=== PATIENT | female | born 1970 | race Caucasian/White ===

== ENCOUNTER 2016-04-04 22:54 | Emergency (ER) | payer OTHER ==
[~2016-04-04] VITALS: Ht 160 cm; Wt 86.2 kg
[~2016-04-04 22:54] MED LIST: AC500T; BENZ-13 PO; CEPH500C PO; CIPR-225 PO; CODE118S2 PO; CYCL10TA9 PO; DIAZ-345 PO; DIPH50CA; DOXY100C42 PO; FAMO-119 PO; FAMO20TA5 PO; FLUC150T PO; GNT.3OO351 OD; INSU100I10 SC; KETO75CA PO; LOSA25TA21 PO; LOVA40TA2 PO; METF1000 PO; MONT10TA24 PO; NAPR-243 PO; NITR-65 PO; PANT40TA2 PO; PHEN-639 PO; PHEN100T17 PO; POLY119P5 PO; RNT150T; SUCR1TAB36 PO; SULF-222 PO; TRAM-21 PO; TRAM50TA2 PO; flexeril PO
[2016-04-04] MEDS ORDERED: CETI10CA PO (23:40)
[2016-04-04] MEDS ORDERED: GUAI100G2 PO (23:40)
[2016-04-04] MEDS ORDERED: LIDOCAINE 2% VISCOUS 15 ML UDC PO ONE (23:45)
[2016-04-04] MEDS ORDERED: ANTACID SUSP 30 ML UDC (MYLANTA) PO ONE (23:45)
[2016-04-05] MEDS ORDERED: HYOSCYAMINE 0.125 MG (LEVSIN) TAB SL ONE (01:00)
[2016-04-05] MEDS ORDERED: NS IV 500 ML 500 ML IV ONE (01:00)
[2016-04-05] MEDS ORDERED: fentaNYL INJECTION 100 MCG/2 ML AMP IVP STA (01:00)
[2016-04-05 01:21] LABS: BASOPHILS % (AUTO) 1 % (0-10); EOSINOPHILS # (AUTO) 0.1 10^3/uL (0.0-0.3); EOSINOPHILS % (AUTO) 1 % (0-10); LYMPHOCYTES # (AUTO) 2.7 X 10^3 (1.0-4.0); LYMPHOCYTES % (AUTO) 38 % (12-44); MEAN CORPUSCULAR HEMOGLOBIN 27 PG (25-34); MEAN CORPUSCULAR HGB CONC 32 G/DL (32-36); MEAN CORPUSCULAR VOLUME 83 FL (80-99); MEAN PLATELET VOLUME 9.3 FL (7.4-10.4); MONOCYTES # (AUTO) 0.6 X 10^3 (0.0-1.0); MONOCYTES % (AUTO) 8 % (0-12); NEUTROPHILS # (AUTO) 3.8 X 10^3 (1.8-7.8); NEUTROPHILS % (AUTO) 53 % (42-75); PLATELET COUNT 432 10^3/uL (130-400); RED BLOOD COUNT 4.01 10^6/uL (4.35-5.85); RED CELL DISTRIBUTION WIDTH 15.3 % (10.0-14.5); WHITE BLOOD COUNT 7.1 10^3/uL (4.3-11.0)
--- NOTE | 2016-04-05 01:36 | ED GI ---
General Chief Complaint: Abdominal/GI Problems Stated Complaint: ABD PAIN Nursing Triage Note: Pt c/o upper abd pain. Pt reports hx hernia, heartburn, esophageal stricture and reports pain is worse today than normal. Pt denies n/v/d. Sepsis Screen: No Definite Risk Source of Information: Patient Exam Limitations: No Limitations History of Present Illness Time Seen By Provider: 00:45 Initial Comments Here with report of upper abdominal pain. She does have a history of hiatal hernia and frequent issues related to that. Does have frequent burping. Complains of pain that is epigastric and left-sided. Reports taking her meds as directed. Denies recent fever or chills. Pain has been on off for the last 6 or more months. She is in the process of evaluation for hiatal hernia surgery. Does report bronchitis for one month with some coughing. Timing/Duration: 12 Hours Severity/Quality: Moderate Location: Epigastric Radiation: LUQ Activities at Onset: None Modifying Factors: Worsens With Eating Associated Symptoms: No Back Pain, No Chest Pain, No Fever/Chills, No Nausea/ Vomiting, No Swelling/Mass in Abdomen, No Weakness Allergies and Home Medications Allergies Coded Allergies: Penicillins (Verified Allergy, Mild, 03/10/16) Home Medications Cetirizine HCl 10 Mg Capsule 10 MG PO DAILY (Reported) Guaifenesin 100 Mg Gran.pack Unknown Dose PO (Reported) Insulin Glargine,Hum.rec.anlog 100 Unit/1 Ml Insuln.pen #30 47 UNITS SC DAILY ( Reported) Lovastatin 40 Mg Tablet #30 40 MG PO DAILY (Reported) Metformin HCl 1,000 Mg Tablet #60 1,000 MG PO BID (Reported) Pantoprazole Sodium 40 Mg Tablet. #14 40 MG PO DAILY Prescribed by: LISS BAGLEY on 08/22/15 1095 Sucralfate 1 Gm Tablet #120 1 GM PO QID Prescribed by: SHARLA GREGORY [facility] on 02/21/16 1327 Review of Systems Constitutional: see HPINo chills, No fever EENTM: No Symptoms Reported Respiratory: CoughDenies Shortness of Air Cardiovascular: No Symptoms Reported Gastrointestinal: See HPI Abdominal PainDenies Diarrhea, Denies Vomiting Genitourinary: No Symptoms Reported Musculoskeletal: no symptoms reported Skin: no symptoms reported All Other Systems Reviewed Negative Unless Noted: Yes Past Nhvxfyt-Bacpcc-Cxepcl Hx Patient Social History Alcohol Use: Denies Use Recreational Drug Use: No Smoking Status: Never a Smoker Recent Foreign Travel: No Contact w/Someone Who Travel: No Recent Infectious Disease Expo: No Recent Hopitalizations: No Physical Abuse Screen: No Sexual Abuse: No Immunizations Up To Date Tetanus Booster (TDap): Unknown Date of Influenza Vaccine: Dec 12, 2015 Seasonal Allergies Seasonal Allergies: No Surgeries HX Surgeries: Yes (l knee surgery, endoscopy) Surgeries: Eye Surgery, Orthopedic Respiratory Hx Respiratory Disorders: Yes Respiratory Disorders: Asthma Cardiovascular Hx Cardiac Disorders: Yes Cardiac Disorders: High Cholesterol Neurological Hx Neurological Disorders: No Reproductive System Hx Reproductive Disorders: No Sexually Transmitted Disease: No HIV/AIDS: No Female Reproductive Disorders: Denies Genitourinary Hx Genitourinary Disorders: Yes Genitourinary Disorders: UTI-Chronic Gastrointestinal Hx Gastrointestinal Disorders: Yes (ESOPHAGEAL NARROWING) Gastrointestinal Disorders: Gastroesophageal Reflux, Hiatal Hernia Musculoskeletal Hx Musculoskeletal Disorders: Yes Musculoskeletal Disorders: Arthritis, Scoliosis Endocrine Hx Endocrine Disorders: Yes Endocrine Disorders: Diabetes, Insulin dep HEENT HX ENT Disorders: No Loss of Vision: Denies Hearing Impairment: Denies Cancer Hx Cancer: No Psychosocial Hx Psychiatric Problems: No Integumentary HX Skin/Integumentary Disorder: No Blood Transfusions Hx Blood Disorders: No Reviewed Nursing Assessment Reviewed/Agree w Nursing PMH: Yes Physical Exam Vital Signs VS - Last 72 Hours, by Label 04/04/16 23:36 Temp 96.7 Pulse 72 Resp 18 B/P 148/100 Pulse Ox 99 O2 Delivery Room Air Capillary Refill : Less Than 3 Seconds General Appearance: WD/WN no apparent distress HEENT: PERRL/EOMI pharynx normal Neck: full range of motion supple Respiratory: lungs clear normal breath sounds Cardiovascular: regular rate, rhythm no murmur Gastrointestinal: non tender soft Extremities: normal range of motion non-tender Back: normal inspection no CVA tenderness no vertebral tenderness Neurologic/Psychiatric: alert oriented x 3 Skin: normal color warm/dry Progress/Results/Core Measures Results/Orders Lab Results Laboratory Tests Test 04/05/16 01:10 Range/Units Alanine Aminotransferase (ALT/SGPT) 24 0-55 U/L Albumin 3.9 3.2-4.5 G/DL Alkaline Phosphatase 55 40-136 U/L Amylase Level 33 25-125 U/L Anion Gap 10 5-14 MMOL/L Aspartate Amino Transf (AST/SGOT) 22 5-34 U/L BUN/Creatinine Ratio 12 Basophils # (Auto) 0.0 0.0-0.1 10^3/uL Basophils (%) (Auto) 1 0-10 % Blood Urea Nitrogen 9 7-18 MG/DL Calcium Level 8.7 8.5-10.1 MG/DL Carbon Dioxide Level 22 21-32 MMOL/L Chloride Level 108 H 98-107 MMOL/L Creatinine 0.73 0.60-1.30 MG/DL Eosinophils # (Auto) 0.1 0.0-0.3 10^3/uL Eosinophils (%) (Auto) 1 0-10 % Estimat Glomerular Filtration Rate > 60 Glucose Level 147 H 70-105 MG/DL Hematocrit 33 L 35-52 % Hemoglobin 10.7 L 11.5-16.0 G/DL Lipase 32 8-78 U/L Lymphocytes # (Auto) 2.7 1.0-4.0 X 10^3 Lymphocytes (%) (Auto) 38 12-44 % Mean Corpuscular Hemoglobin 27 25-34 PG Mean Corpuscular Hemoglobin Concent 32 32-36 G/DL Mean Corpuscular Volume 83 80-99 FL Mean Platelet Volume 9.3 7.4-10.4 FL Monocytes # (Auto) 0.6 0.0-1.0 X 10^3 Monocytes (%) (Auto) 8 0-12 % Neutrophils # (Auto) 3.8 1.8-7.8 X 10^3 Neutrophils (%) (Auto) 53 42-75 % Platelet Count 432 H 130-400 10^3/uL Potassium Level 3.2 L 3.6-5.0 MMOL/L Red Blood Count 4.01 L 4.35-5.85 10^6/uL Red Cell Distribution Width 15.3 H 10.0-14.5 % Sodium Level 140 135-145 MMOL/L Total Bilirubin 0.2 0.1-1.0 MG/DL Total Protein 6.9 6.4-8.2 G/DL White Blood Count 7.1 4.3-11.0 10^3/uL My Orders Orders-WILEY AMBRIZ MD Lidocaine 2% Viscous 15 Ml (Xylocaine Vi (04/04/16 23:45) Antacid Suspension (Mylanta Suspension (04/04/16 23:45) Saline Lock/Iv-Start (04/05/16 01:00) Ns Iv 500 Ml (Sodium Chloride 0.9%) (04/05/16 01:00) Fentanyl Injection (Sublimaze Injection (04/05/16 01:00) Amylase (04/05/16 01:00) Cbc With Automated Diff (04/05/16 01:00) Comprehensive Metabolic Panel (04/05/16 01:00) Lipase (04/05/16 01:00) Chest Pa/Lat (2 View) (04/05/16 01:00) Urine Bedside (04/05/16 01:00) Hyoscyamine Sl Tablet (Levsin Sl Tablet) (04/05/16 01:00) Ketorolac Injection (Toradol Injection) (04/05/16 02:00) Dexamethasone Pf Injection (Decadron Pf (04/05/16 02:00) Medications Given in ED Current Medications Medications Dose Ordered Sig/Hunter Route Start Time Stop Time Status Last Admin Dose Admin Al Hydrox/Mg Hydrox/ Simethicone 30 ml 30 ml ONCE ONCE PO 04/04/16 23:45 04/04/16 23:47 DC 04/05/16 00:00 30 ML Hyoscyamine Sulfate 0.125 mg ONCE ONCE SL 04/05/16 01:00 04/05/16 01:02 DC 04/05/16 01:11 0.125 MG Lidocaine HCl 15 ml ONCE ONCE PO 04/04/16 23:45 04/04/16 23:47 DC 04/05/16 00:00 15 ML Sodium Chloride 500 ml @ 0 mls/hr Q0M ONCE IV 04/05/16 01:00 04/05/16 01:02 DC 04/05/16 01:11 999 MLS/HR Vital Signs/I&O Vital Sign - Last 12Hours 04/04/16 23:36 Temp 96.7 Pulse 72 Resp 18 B/P 148/100 Pulse Ox 99 O2 Delivery Room Air Blood Pressure Mean: 116 Point of Care Testing Urine -Bedside: Negative Progress Note : Progress Note Seen and evaluated. GI cocktail given. This did not help patient's discomfort. IV, labs, normal saline 500 mL bolus, fentanyl 50 g IV and Levsin 0.125 mg by mouth given. Chest x-ray ordered. Monitor patient. 0155: Pain somewhat improved. I did discuss the x-ray findings with the patient. She has a moderate amount of bowel gas. She does have a habit of injecting air to try to induce burping. She would like to avoid further scanning currently if possible. We will try Toradol 30 mg IV and also will give Decadron 10 mg IV due to her bronchitis that she's had for a month. Patient was informed that this may increase her blood sugars. Monitor patient. 0230: Improved overall. Discharged home with return precautions. Patient verbalize understanding instructions and agreement with plan. Diagnostic Imaging Diagonstic Imaging: Xray Plain Films/CT/US/NM/MRI: chest Comments No acute findings in the lungs. Moderate amount of bowel gas. Departure Impression Impression: Primary Impression: Epigastric abdominal pain Additional Impression: Bronchitis Disposition: HOME, SELF-CARE Condition: Improved Departure-Patient Inst. Decision time for Depature: 02:30 Referrals: [facility] (PCP/Family) Primary Care Physician ADRIENNE BRITTON DO Patient Instructions: Acute Abdomen (Belly Pain), Adult (DC), Acute Bronchitis in Adults Add. Discharge Instructions: All discharge instructions reviewed with patient and/or family. Voiced understanding. Continue home medications as directed. You may take Tylenol 1000 mg every 8 hours as needed for pain. You may take ibuprofen 800 mg every 8 hours as needed for pain. Drink plenty of fluids. Try to avoid injecting air to induce burping. You may try Gas-X or similar [id number] agents to decrease bowel gas. Follow-up with your surgeon is for recheck. Follow-up with your primary care doctor in a few days for recheck. Return for worse pain, fever, vomiting, weakness, breathing problems or other concerns as needed. Scripts Hyoscyamine Sulfate (Levsin)0.125 Mg Tablet0.125 Mg PO Q4H PRN CRAMPS #20 TAB Ref 0 Prov:WILEY AMBRIZ MD 04/05/16 Copy Copies To 1: RIAZ REAL DO Copies To 2: ADRIENNE BRITTON DO WILEY AMBRIZ MD Apr 05, 2016 01:36
[2016-04-05 01:41] LABS: ALANINE AMINOTRANSFERASE 24 U/L (0-55); ALBUMIN 3.9 G/DL (3.2-4.5); AMYLASE 33 U/L (25-125); ANION GAP 10 MMOL/L (5-14); ASPARTATE AMINO TRANSFERASE 22 U/L (5-34); BILIRUBIN,TOTAL 0.2 MG/DL (0.1-1.0); BLOOD UREA NITROGEN 9 MG/DL (7-18); BUN/CREATININE RATIO 12; CALCIUM 8.7 MG/DL (8.5-10.1); CARBON DIOXIDE 22 MMOL/L (21-32); CHLORIDE 108 MMOL/L (98-107); CREATININE SERUM 0.73 MG/DL (0.60-1.30); GFR ESTIMATED > 60; GLUCOSE 147 MG/DL (70-105); LIPASE 32 U/L (8-78); POTASSIUM 3.2 MMOL/L (3.6-5.0); SODIUM 140 MMOL/L (135-145); TOTAL PROTEIN 6.9 G/DL (6.4-8.2)
[2016-04-05] MEDS ORDERED: DEXAMETHASONE PF 10 MG/ML (DECADRON) VIAL IV STA (02:00)
[2016-04-05] MEDS ORDERED: KETOROLAC 30 MG/ML VIAL IVP STA (02:00)
[2016-04-05] MEDS ORDERED: HYOS0.1281 PO (02:34)
[2016-04-05 02:39] VITALS: BP 148/82
--- NOTE | 2016-04-05 06:51 | Diagnostic Imaging Report ---
INDICATION: Chronic upper abdominal pain PA and lateral views of the chest are obtained with comparison made to the examination of 03/10/2016. Overall heart size is within normal limits although pulmonary vascularity is prominent. There is no consolidation, pneumothorax or significant pleural fluid. IMPRESSION: Pulmonary vascularity at the upper limits of normal without overt edema or other acute abnormality seen. Dictated by: Dictated on workstation # [id number]
== END 2016-04-05 02:39 | disposition home or self-care (01) ==
LOC: ER 22:54 → EDUNIT# 22:54 → ER 04-05 02:39
DX: R10.13 Epigastric pain (principal); J40 Bronchitis, not specified as acute or chronic; K44.9 Diaphragmatic hernia without obstruction or gangrene; E11.9 Type 2 diabetes mellitus without complications; Z79.84 Long term (current) use of oral hypoglycemic drugs; Z79.4 Long term (current) use of insulin; Z79.899 Other long term (current) drug therapy
CPT/HCPCS: 36415; 71020; 80053; 82150; 83690; 84703; 85025; 96361; 96374; 96375

== ENCOUNTER 2016-04-16 21:09 | Emergency (ER) | payer OTHER ==
[~2016-04-16] VITALS: Ht 160 cm; Wt 88.7 kg
[~2016-04-16 21:09] MED LIST changes: +CETI10CA PO; +GUAI100G2 PO; +HYOS0.1281 PO
--- NOTE | 2016-04-16 21:20 | ED Cough/URI ---
General Stated Complaint: BRONCHITIS/RIB PAIN/SINUS INFECTION Source: patient Exam Limitations: no limitations History of Present Illness Time seen by provider: 21:19 Initial Comments To ER with a cough that has been persistent since before . She has been on doxycycline azithromycin and Ceftin without improvement. It is productive of yellowish sputum that is sometimes blood-tinged. No fevers. Timing/Duration: just prior to arrival Severity/Quality: productive cough, sputum, blood streaked sputum Associated Symptoms: cough, wheezing Allergies and Home Medications Allergies Coded Allergies: Penicillins (Verified Allergy, Mild, 03/10/16) Home Medications Cetirizine HCl 10 Mg Capsule 10 MG PO DAILY (Reported) Guaifenesin 100 Mg Gran.pack Unknown Dose PO (Reported) Hyoscyamine Sulfate 0.125 Mg Tablet #20 0.125 MG PO Q4H PRN PRN CRAMPS Prescribed by: WILEY AMBRIZ on 04/05/16 0234 Insulin Glargine,Hum.rec.anlog 100 Unit/1 Ml Insuln.pen #30 47 UNITS SC DAILY ( Reported) Lovastatin 40 Mg Tablet #30 40 MG PO DAILY (Reported) Metformin HCl 1,000 Mg Tablet #60 1,000 MG PO BID (Reported) Pantoprazole Sodium 40 Mg Tablet.dr #14 40 MG PO DAILY Prescribed by: LISS BAGLEY on 08/22/15 2159 Sucralfate 1 Gm Tablet #120 1 GM PO QID Prescribed by: SHARLA GREGORY [facility] on 02/21/16 1327 Constitutional: see HPI EENTM: see HPI Respiratory: see HPI cough wheezing Cardiovascular: no symptoms reported Genitourinary: no symptoms reported Musculoskeletal: no symptoms reported Skin: no symptoms reported Psychiatric/Neurological: No Symptoms Reported Hematologic/Lymphatic: No Symptoms Reported Immunological/Allergic: no symptoms reported Past Ahqtqgz-Osufxf-Ihdlir Hx Patient Social History Recent Foreign Travel: No Contact w/Someone Who Travel: No Recent Hopitalizations: No Immunizations Up To Date Tetanus Booster (TDap): Unknown Date of Influenza Vaccine: Dec 12, 2015 Seasonal Allergies Seasonal Allergies: No Surgeries HX Surgeries: Yes (l knee surgery, endoscopy) Surgeries: Eye Surgery, Orthopedic Respiratory Hx Respiratory Disorders: Yes Respiratory Disorders: Asthma Cardiovascular Hx Cardiac Disorders: Yes Cardiac Disorders: High Cholesterol Neurological Hx Neurological Disorders: No Reproductive System Hx Reproductive Disorders: No Sexually Transmitted Disease: No HIV/AIDS: No Female Reproductive Disorders: Denies Genitourinary Hx Genitourinary Disorders: Yes Genitourinary Disorders: UTI-Chronic Gastrointestinal Hx Gastrointestinal Disorders: Yes (ESOPHAGEAL NARROWING) Gastrointestinal Disorders: Gastroesophageal Reflux, Hiatal Hernia Musculoskeletal Hx Musculoskeletal Disorders: Yes Musculoskeletal Disorders: Arthritis, Scoliosis Endocrine Hx Endocrine Disorders: Yes Endocrine Disorders: Diabetes, Insulin dep HEENT HX ENT Disorders: No Loss of Vision: Denies Hearing Impairment: Denies Cancer Hx Cancer: No Psychosocial Hx Psychiatric Problems: No Integumentary HX Skin/Integumentary Disorder: No Blood Transfusions Hx Blood Disorders: No Physical Exam Vital Signs Vital Sign - Last 12Hours 04/16/16 04/16/16 21:25 21:33 Temp 100.6 Pulse 112 Resp 18 B/P 173/104 Pulse Ox 98 O2 Delivery Room Air Capillary Refill : General Appearance: WD/WN no apparent distress Eyes: Bilateral Eye EOMI, Bilateral Eye Normal Inspection, Bilateral Eye PERRL HEENT: PERRL/EOMI normal ENT inspection Neck: non-tender full range of motion Respiratory: no respiratory distress no accessory muscle use wheezing Gastrointestinal: normal bowel sounds non tender soft Neurologic/Psychiatric: alert normal mood/affect oriented x 3 Skin: normal color warm/dry Progress/Results/Core Measures Results/Orders Micro Results Microbiology 04/16/16 Influenza Types A,B Antigen (AMITA) - Final, Complete My Orders Orders-LISS BAGLEY APRN Chest Pa/Lat (2 View) (04/16/16 21:10) Influenza A And B Antigens (04/16/16 21:10) Albuterol/Ipra Inhalation Soln (Duoneb I (04/16/16 21:30) Svn Sm Volume Nebulizer Rt-Rfs (04/16/16 21:18) Prednisone Tablet (Deltasone Tablet) (04/16/16 21:30) Promethazine/ Codeine Syrup (Phenergan W (04/16/16 21:30) Medications Given in ED Current Medications Medications Dose Ordered Sig/Hunter Route Start Time Stop Time Status Last Admin Dose Admin Albuterol/ Ipratropium 3 ml ONCE ONCE INH 04/16/16 21:30 04/16/16 21:31 DC 04/16/16 21:30 3 ML Prednisone 40 mg ONCE ONCE PO 04/16/16 21:30 04/16/16 21:31 DC 04/16/16 21:49 40 MG Vital Signs/I&O Vital Sign - Last 12Hours 04/16/16 04/16/16 04/16/16 21:25 21:31 21:33 Temp 100.6 Pulse 112 Resp 18 B/P 173/104 Pulse Ox 98 98 O2 Delivery Room Air Departure Impression Impression: Primary Impression: Reactive airway disease Disposition: HOME, SELF-CARE Condition: Stable Departure-Patient Inst. Decision time for Depature: 22:01 Referrals: [facility] (PCP/Family) Primary Care Physician Patient Instructions: NO INSTRUCTIONS GIVEN Add. Discharge Instructions: 1. You must follow-up with your regular doctor this week, no exceptions. 2. Steroids and inhaler as directed Scripts Albuterol Sulfate (Proair Hfa)8.5 Gm Hfa.aer.ad1-2 Puff IH Q4H PRN WHEEZING #1 INH Prov:LISS BAGLEY APRN 04/16/16 Prednisone 20 Mg Tab40 Mg PO DAILY 5 Days Prov:LISS BAGLEY APRN 04/16/16 LISS BAGLEY APRN Apr 16, 2016 21:20
[2016-04-16] MEDS ORDERED: predniSONE 20 MG TAB PO ONE (21:30)
[2016-04-16] MEDS ORDERED: RT-ALBUTEROL/IPRATROPIUM 3 ML (DUONEB) VIAL INH ONE (21:30)
--- NOTE | 2016-04-16 21:48 | Diagnostic Imaging Report ---
INDICATION: Cough COMPARISON STUDY: Chest from April 05. FINDINGS: Frontal and lateral views of the chest demonstrate the lungs to be clear. The heart, mediastinum, and pulmonary vascularity are normal. IMPRESSION: Negative chest. Dictated by: Dictated on workstation # [id number]
[2016-04-16] MEDS: PROMETHAZINE/ CODEINE SYRUP 5 ML UDC PO ONE ×2 (21:49→21:51)
[2016-04-16] MEDS ORDERED: PRD20T PO (22:03)
[2016-04-16] MEDS ORDERED: RT-ALBUINH IH (22:03)
[2016-04-16 22:07] VITALS: BP 146/107
== END 2016-04-16 22:05 | disposition home or self-care (01) ==
LOC: EDUNIT# 21:09 → ER 21:10
DX: J45.909 Unspecified asthma, uncomplicated (principal); E11.9 Type 2 diabetes mellitus without complications; Z79.84 Long term (current) use of oral hypoglycemic drugs; Z79.899 Other long term (current) drug therapy
CPT/HCPCS: 71020; 87804; 94640; 99282

== ENCOUNTER 2016-04-22 20:13 | Emergency (ER) | payer OTHER ==
[~2016-04-22] VITALS: Ht 160 cm; Wt 86.2 kg
[~2016-04-22 20:13] MED LIST changes: +PRD20T PO; +RT-ALBUINH IH
[2016-04-22] MEDS ORDERED: NS IV 1000 ML 1,000 ML IV ONE ×2 (20:26→22:17)
--- NOTE | 2016-04-22 20:29 | ED GI ---
General Chief Complaint: Abdominal/GI Problems Stated Complaint: N/V Nursing Triage Note: Pt c/o nausea and vomiting and abd pain since 0430 this morning Sepsis Screen: No Definite Risk Source of Information: Patient Exam Limitations: No Limitations History of Present Illness Time Seen By Provider: 20:17 Initial Comments Here with report of nausea and vomiting since about 430 this morning. She had a relatively clear. She went to work and then vomited several more times. She is complaining of upper abdominal pain. This is not a new complaint for her. She does have hiatal hernia. Denies fever or chills. Does report increased urination. Timing/Duration: 12-24 Hours Severity/Quality: Moderate Location: Epigastric Radiation: No Radiation Modifying Factors: Worsens With Eating, Improves With Vomiting Associated Symptoms: No Back Pain, No Chest Pain, No Fever/Chills, FatigueNo Nausea/Vomiting, No Shortness of Air, No Weakness Allergies and Home Medications Allergies Coded Allergies: Penicillins (Verified Allergy, Mild, 03/10/16) Home Medications Albuterol Sulfate 8.5 Gm Hfa.aer.ad #1 1-2 PUFF IH Q4H PRN PRN WHEEZING Prescribed by: LISS BAGLEY on 04/16/162202 Cetirizine HCl 10 Mg Capsule 10 MG PO DAILY (Reported) Guaifenesin 100 Mg Gran.pack Unknown Dose PO (Reported) Hyoscyamine Sulfate 0.125 Mg Tablet #20 0.125 MG PO Q4H PRN PRN CRAMPS Prescribed by: WILEY AMBRIZ on 04/05/16 0234 Insulin Glargine,Hum.rec.anlog 100 Unit/1 Ml Insuln.pen #30 47 UNITS SC DAILY ( Reported) Lovastatin 40 Mg Tablet #30 40 MG PO DAILY (Reported) Metformin HCl 1,000 Mg Tablet #60 1,000 MG PO BID (Reported) Pantoprazole Sodium 40 Mg Tablet.dr #14 40 MG PO DAILY Prescribed by: LISS BAGLEY on 08/22/152158 Prednisone 20 Mg Tab 5Days 40 MG PO DAILY Prescribed by: LISS BAGLEY on 04/16/162202 Sucralfate 1 Gm Tablet #120 1 GM PO QID Prescribed by: SHARLA GREGORY [facility] on 02/21/16 1327 Review of Systems Constitutional: see HPINo chills, No fever EENTM: No Symptoms Reported Respiratory: See HPI CoughDenies Shortness of Air Cardiovascular: No Symptoms Reported Gastrointestinal: See HPI Abdominal Pain Nausea Vomiting Genitourinary: No Symptoms Reported Musculoskeletal: no symptoms reported Skin: no symptoms reported Psychiatric/Neurological: See HPI Endocrine: See HPI Increased Urine All Other Systems Reviewed Negative Unless Noted: Yes Past Ewpwefg-Xzgvzp-Cyjmrx Hx Patient Social History Alcohol Use: Denies Use Recreational Drug Use: No Smoking Status: Never a Smoker Recent Foreign Travel: No Contact w/Someone Who Travel: No Recent Infectious Disease Expo: No Recent Hopitalizations: No Immunizations Up To Date Tetanus Booster (TDap): Unknown Date of Influenza Vaccine: Dec 12, 2015 Seasonal Allergies Seasonal Allergies: No Surgeries HX Surgeries: Yes (l knee surgery, endoscopy, eye) Surgeries: Eye Surgery, Orthopedic Respiratory Hx Respiratory Disorders: Yes Respiratory Disorders: Asthma Cardiovascular Hx Cardiac Disorders: Yes Cardiac Disorders: High Cholesterol Neurological Hx Neurological Disorders: No Reproductive System Hx Reproductive Disorders: No Sexually Transmitted Disease: No HIV/AIDS: No Female Reproductive Disorders: Denies Genitourinary Hx Genitourinary Disorders: Yes Genitourinary Disorders: UTI-Chronic Gastrointestinal Hx Gastrointestinal Disorders: Yes (ESOPHAGEAL NARROWING) Gastrointestinal Disorders: Gastroesophageal Reflux, Hiatal Hernia Musculoskeletal Hx Musculoskeletal Disorders: Yes Musculoskeletal Disorders: Arthritis, Scoliosis Endocrine Hx Endocrine Disorders: Yes Endocrine Disorders: Diabetes, Insulin dep HEENT HX ENT Disorders: No Loss of Vision: Denies Hearing Impairment: Denies Cancer Hx Cancer: No Psychosocial Hx Psychiatric Problems: No Integumentary HX Skin/Integumentary Disorder: No Blood Transfusions Hx Blood Disorders: No Reviewed Nursing Assessment Reviewed/Agree w Nursing PMH: Yes Family Medical History Significant Family History: No Pertinent Family Hx Physical Exam Vital Signs VS - Last 72 Hours, by Label 04/22/16 20:23 Temp 98.3 Pulse 104 Resp 18 B/P 164/102 Pulse Ox 98 O2 Delivery Room Air Capillary Refill : Less Than 3 Seconds General Appearance: WD/WN no apparent distress HEENT: PERRL/EOMI pharynx normal Neck: full range of motion supple Respiratory: lungs clear normal breath sounds Cardiovascular: regular rate, rhythm no murmur Gastrointestinal: non tender soft Extremities: non-tender normal inspection Back: normal inspection no CVA tenderness no vertebral tenderness Neurologic/Psychiatric: alert oriented x 3 Skin: normal color warm/dry Progress/Results/Core Measures Results/Orders Lab Results Laboratory Tests Test 04/22/16 20:39 04/22/16 21:17 04/22/16 22:29 Range/Units Alanine Aminotransferase (ALT/SGPT) 16 0-55 U/L Albumin 3.9 3.2-4.5 G/DL Alkaline Phosphatase 61 40-136 U/L Anion Gap 17 H 5-14 MMOL/L Anisocytosis MODERATE Aspartate Amino Transf (AST/SGOT) 26 5-34 U/L BUN/Creatinine Ratio 12 Band Neutrophils 1 % Basophils # (Auto) 0.0 0.0-0.1 10^3/uL Basophils % (Manual) 0 % Basophils (%) (Auto) 0 0-10 % Blood Urea Nitrogen 17 7-18 MG/DL C-Reactive Protein High Sensitivity 0.50 0.00-0.50 MG/DL Calcium Level 9.3 8.5-10.1 MG/DL Carbon Dioxide Level 12 L 21-32 MMOL/L Chloride Level 102 98-107 MMOL/L Creatinine 1.38 H 0.60-1.30 MG/DL Elliptocytes SLIGHT Eosinophils # (Auto) 0.0 0.0-0.3 10^3/uL Eosinophils % (Manual) 0 % Eosinophils (%) (Auto) 0 0-10 % Estimat Glomerular Filtration Rate 41 Glucose Level 434 *H 70-105 MG/DL Hematocrit 33 L 35-52 % Hemoglobin 10.9 L 11.5-16.0 G/DL Hypersegmented Neutrophils SLIGHT Lymphocytes # (Auto) 1.4 1.0-4.0 X 10^3 Lymphocytes % (Manual) 15 % Lymphocytes (%) (Auto) 11 L 12-44 % Magnesium Level 2.0 1.8-2.4 MG/DL Mean Corpuscular Hemoglobin 26 25-34 PG Mean Corpuscular Hemoglobin Concent 33 32-36 G/DL Mean Corpuscular Volume 79 L 80-99 FL Mean Platelet Volume 10.1 7.4-10.4 FL Monocytes # (Auto) 0.4 0.0-1.0 X 10^3 Monocytes % (Manual) 1 % Monocytes (%) (Auto) 3 0-12 % Neutrophils # (Auto) 11.4 H 1.8-7.8 X 10^3 Neutrophils % (Manual) 83 % Neutrophils (%) (Auto) 86 H 42-75 % Platelet Count 484 H 130-400 10^3/uL Poikilocytosis SLIGHT Potassium Level 5.0 3.6-5.0 MMOL/L Red Blood Count 4.17 L 4.35-5.85 10^6/uL Red Cell Distribution Width 15.3 H 10.0-14.5 % [place] SLIGHT Sodium Level 131 L 135-145 MMOL/L Total Bilirubin 0.3 0.1-1.0 MG/DL Total Protein 7.6 6.4-8.2 G/DL Toxic Granulation 1+ White Blood Count 13.2 H 4.3-11.0 10^3/uL Urine Bacteria NEGATIVE /HPF Urine Bilirubin NEGATIVE NEGATIVE Urine Casts NONE /LPF Urine Clarity CLEAR Urine Color YELLOW Urine Crystals NONE /LPF Urine Culture Indicated NO Urine Glucose (UA) 4+ H NEGATIVE Urine Ketones 2+ H NEGATIVE Urine Leukocyte Esterase 1+ H NEGATIVE Urine Mucus NEGATIVE /LPF Urine Nitrite NEGATIVE NEGATIVE Urine Protein NEGATIVE NEGATIVE Urine RBC NONE /HPF Urine RBC (Auto) NEGATIVE NEGATIVE Urine Renal Epithelial Cells NONE /HPF Urine Specific [place] 1.015 L 1.016-1.022 Urine Squamous Epithelial Cells 0-2 /HPF Urine Urobilinogen NORMAL NORMAL MG/DL Urine WBC 0-2 /HPF Urine Yeast FEW H /HPF Urine pH 5 5-9 Glucometer 294 H 70-110 MG/DL My Orders Orders-WILEY AMBRIZ MD Cbc With Automated Diff (04/22/16 20:26) Comprehensive Metabolic Panel (04/22/16 20:26) Hs C Reactive Protein (04/22/16 20:26) Magnesium (04/22/16 20:26) Ua Culture If Indicated (04/22/16 20:26) Saline Lock/Iv-Start (04/22/16 20:26) Ns Iv 1000 Ml (Sodium Chloride 0.9%) (04/22/16 20:26) Ondansetron Injection (Zofran Injectio (04/22/16 20:30) Hyoscyamine Sl Tablet (Levsin Sl Tablet) (04/22/16 20:30) Manual Differential (04/22/16 20:39) Insulin (Regular) Human (Humulin R (Per (04/22/16 22:30) Ns Iv 1000 Ml (Sodium Chloride 0.9%) (04/22/16 22:17) Ketorolac Injection (Toradol Injection) (04/22/16 22:50) Medications Given in ED Current Medications Medications Dose Ordered Sig/Hunter Route Start Time Stop Time Status Last Admin Dose Admin Hyoscyamine Sulfate 0.125 mg 0.125 mg ONCE ONCE SL 04/22/16 20:30 04/22/16 20:31 DC 04/22/16 20:40 0.125 MG Ondansetron HCl 4 mg ONCE ONCE IVP 04/22/16 20:30 04/22/16 20:31 DC 04/22/16 20:40 4 MG Sodium Chloride 1,000 ml @ 0 mls/hr Q0M ONCE IV 04/22/16 20:26 04/22/16 20:29 DC 04/22/16 20:40 999 MLS/HR Sodium Chloride 1,000 ml @ 0 mls/hr Q0M ONCE IV 04/22/16 22:17 04/22/16 22:18 DC 04/22/16 22:27 999 MLS/HR Vital Signs/I&O Vital Sign - Last 12Hours 04/22/16 20:23 Temp 98.3 Pulse 104 Resp 18 B/P 164/102 Pulse Ox 98 O2 Delivery Room Air Blood Pressure Mean: 122 Progress Note : Progress Note Seen and evaluated. IV, labs, UA, normal saline 1 L bolus, Zofran 4 mg IV and Levsin 0.125 mg by mouth. Monitor patient. 2215: Patient noted to have elevated blood sugar. We will repeat normal saline 1 L bolus and give insulin 10 units IV. Monitor patient. Insulin was held as patient reported taking her Lantus and metformin prior to coming to the ER. Repeat her stick blood sugar shows it to be in the mid 200 range. She is currently on steroids for bronchitis and this would account for her elevated blood sugar and slightly elevated white count. Toradol 30 mg IV ordered. Monitor patient. 2310: Discharged home with return precautions. Patient verbalize understanding instructions and agreement with plan. Departure Impression Impression: Primary Impression: Epigastric abdominal pain Additional Impression: Hyperglycemia Disposition: 01 HOME, SELF-CARE Condition: Improved Departure-Patient Inst. Decision time for Depature: 23:14 Referrals: [facility] (PCP/Family) Primary Care Physician ADRIENNE BRITTON DO Patient Instructions: Acute Abdomen (Belly Pain), Adult (DC), Hyperglycemia, Adult (DC) Add. Discharge Instructions: All discharge instructions reviewed with patient and/or family. Voiced understanding. Carefully watch your blood sugars. Clear liquid diet for 24 hours and then advance as tolerated. Follow-up with your doctor tomorrow for recheck and further evaluation. Return for worse pain, fever, vomiting, weakness, breathing problems or other concerns as needed. Discuss with your doctor about further evaluation including surgical referral as needed. Scripts Sucralfate (Carafate)1 Gm Tablet1 Gm PO QID #120 TAB Ref 0 Prov:WILEY AMBRIZ MD 04/23/16 WILEY AMBRIZ MD Apr 22, 2016 20:29
[2016-04-22] MEDS ORDERED: HYOSCYAMINE 0.125 MG (LEVSIN) TAB SL ONE (20:30)
[2016-04-22] MEDS ORDERED: ONDANSETRON 4 MG/2 ML (SDV) Z0FRAN IVP ONE (20:30)
[2016-04-22 20:48] LABS: BASOPHILS % (AUTO) 0 % (0-10); EOSINOPHILS % (AUTO) 0 % (0-10); LYMPHOCYTES # (AUTO) 1.4 X 10^3 (1.0-4.0); LYMPHOCYTES % (AUTO) 11 % (12-44); MEAN CORPUSCULAR HEMOGLOBIN 26 PG (25-34); MEAN CORPUSCULAR HGB CONC 33 G/DL (32-36); MEAN CORPUSCULAR VOLUME 79 FL (80-99); MEAN PLATELET VOLUME 10.1 FL (7.4-10.4); MONOCYTES # (AUTO) 0.4 X 10^3 (0.0-1.0); MONOCYTES % (AUTO) 3 % (0-12); NEUTROPHILS # (AUTO) 11.4 X 10^3 (1.8-7.8); NEUTROPHILS % (AUTO) 86 % (42-75); PLATELET COUNT 484 10^3/uL (130-400); RED BLOOD COUNT 4.17 10^6/uL (4.35-5.85); RED CELL DISTRIBUTION WIDTH 15.3 % (10.0-14.5); WHITE BLOOD COUNT 13.2 10^3/uL (4.3-11.0)
[2016-04-22 21:07] LABS: ALBUMIN 3.9 G/DL (3.2-4.5); ANISOCYTOSIS MODERATE; BAND NEUTROPHILS 1 %; BASOPHILS % (MANUAL) 0 %; BILIRUBIN,TOTAL 0.3 MG/DL (0.1-1.0); CALCIUM 9.3 MG/DL (8.5-10.1); CREATININE SERUM 1.38 MG/DL (0.60-1.30); EOSINOPHILS % (MANUAL) 0 %; LYMPHOCYTES % (MANUAL) 15 %; NEUTROPHILS % (MANUAL) 83 %; POIKILOCYTOSIS SLIGHT; TOTAL PROTEIN 7.6 G/DL (6.4-8.2); hs C REACTIVE PROTEIN 0.5 MG/DL (0.00-0.50)
[2016-04-22 21:08] LABS: ROULEAUX SLIGHT
[2016-04-22 21:25] LABS: BILIRUBIN,URINE NEGATIVE (NEGATIVE); KETONES,URINE 2+ (NEGATIVE); LEUKOCYTE ESTERASE ,URINE 1+ (NEGATIVE); NITRITE,URINE NEGATIVE (NEGATIVE); PH,URINE 5 (5-9); PROTEIN,URINE NEGATIVE (NEGATIVE); UROBILINOGEN,URINE NORMAL (NORMAL)
[2016-04-22 21:37] LABS: SQUAMOUS EPITHELIAL CELL,UR 0-2 /HPF; WBC,URINE 0-2 /HPF; YEAST,URINE FEW /HPF
[2016-04-22] MEDS ORDERED: inSUlin (REGULAR) HUMAN 1 UNIT/0.01 ML (CHARGE PER UNIT) IV ONE (22:30)
[2016-04-22] MEDS ORDERED: KETOROLAC 30 MG/ML VIAL IVP STA (22:50)
[2016-04-23] MEDS ORDERED: SUCR1TAB36 PO (00:04)
[2016-04-23 00:09] VITALS: BP 149/85
== END 2016-04-23 00:09 | disposition home or self-care (01) ==
LOC: ER 20:13 → EDUNIT# 20:13 → ER 04-23 00:09
DX: R10.13 Epigastric pain (principal); E11.65 Type 2 diabetes mellitus with hyperglycemia; K44.9 Diaphragmatic hernia without obstruction or gangrene; Z79.4 Long term (current) use of insulin; Z79.899 Other long term (current) drug therapy; Z79.84 Long term (current) use of oral hypoglycemic drugs
CPT/HCPCS: 36415; 80053; 81000; 82962; 83735; 85007; 85027; 86141; 96361; 96374; 96375

== ENCOUNTER → 2016-05-23 | Outpatient (CLI) | payer OTHER ==
[~2016-05-23] MED LIST changes: +ACET-2267 PO; +FLUT1BLS IH; +GUAI400T71 PO; +HYOS0.1216 SL; +ONDA8TAB12 PO; +PANT40TA3 PO
--- NOTE | 2016-05-23 14:35 | Diagnostic Imaging Report ---
INDICATION: Asthma, cough, dyspnea. TECHNIQUE: Two view chest at 11:01 a.m. CORRELATION STUDY: 04/16/2016. FINDINGS: Overall somewhat limited depth of inspiration is again demonstrated. Given this, heart size, mediastinum, and vasculature are stable. The lungs are clear with no consolidating infiltrate. There is no significant pleural effusion or pneumothorax. Mild degenerative changes of the thoracic spine. IMPRESSION: 1. No radiographic evidence for acute abnormality of the chest. Dictated by: Dictated on workstation # [id number]
== END ==
LOC: RT 10:37
PROVIDERS: ATTEND Nurse Practitioner Family
DX: J45.909 Unspecified asthma, uncomplicated (principal); R05 Cough; R06.00 Dyspnea, unspecified
CPT/HCPCS: 71020; 94060; 94726; 94729

== ENCOUNTER 2016-06-07 20:12 | Observation (INO) | payer OTHER ==
[~2016-06-07] VITALS: Ht 160 cm; Wt 89.0 kg
[~2016-06-07 20:12] MED LIST changes: -ACET-2267 PO; -FLUT1BLS IH; -GUAI400T71 PO; -HYOS0.1216 SL; -ONDA8TAB12 PO; -PANT40TA3 PO
[2016-06-07] MEDS ORDERED: NS IV 1000 ML 1,000 ML IV ONE (21:26)
[2016-06-07 21:30] LABS: BILIRUBIN,URINE NEGATIVE (NEGATIVE); KETONES,URINE NEGATIVE (NEGATIVE); LEUKOCYTE ESTERASE ,URINE 2+ (NEGATIVE); NITRITE,URINE NEGATIVE (NEGATIVE); PH,URINE 6.5 (5-9); PROTEIN,URINE NEGATIVE (NEGATIVE); UROBILINOGEN,URINE NORMAL (NORMAL)
[2016-06-07] MEDS ORDERED: ONDANSETRON 4 MG/2 ML (SDV) Z0FRAN IVP ONE (21:30)
[2016-06-07] MEDS ORDERED: FAMOTIDINE 20MG/2ML IV (PEPCID) IVP ONE (21:30)
[2016-06-07] MEDS ORDERED: fentaNYL INJECTION 100 MCG/2 ML AMP IVP ONE (21:30)
[2016-06-07 21:54] LABS: BASOPHILS % (AUTO) 0 % (0-10); EOSINOPHILS # (AUTO) 0.2 10^3/uL (0.0-0.3); EOSINOPHILS % (AUTO) 3 % (0-10); LYMPHOCYTES # (AUTO) 2.8 X 10^3 (1.0-4.0); LYMPHOCYTES % (AUTO) 32 % (12-44); MEAN CORPUSCULAR HEMOGLOBIN 25 PG (25-34); MEAN CORPUSCULAR HGB CONC 32 G/DL (32-36); MEAN CORPUSCULAR VOLUME 80 FL (80-99); MEAN PLATELET VOLUME 9.3 FL (7.4-10.4); MONOCYTES # (AUTO) 0.5 X 10^3 (0.0-1.0); MONOCYTES % (AUTO) 6 % (0-12); NEUTROPHILS # (AUTO) 5.2 X 10^3 (1.8-7.8); NEUTROPHILS % (AUTO) 59 % (42-75); PLATELET COUNT 471 10^3/uL (130-400); RED BLOOD COUNT 4.05 10^6/uL (4.35-5.85); RED CELL DISTRIBUTION WIDTH 16.5 % (10.0-14.5); WHITE BLOOD COUNT 8.8 10^3/uL (4.3-11.0)
[2016-06-07 22:16] LABS: ALANINE AMINOTRANSFERASE 19 U/L (0-55); ALBUMIN 3.8 G/DL (3.2-4.5); ANION GAP 9 MMOL/L (5-14); ASPARTATE AMINO TRANSFERASE 17 U/L (5-34); BILIRUBIN,TOTAL 0.3 MG/DL (0.1-1.0); BLOOD UREA NITROGEN 7 MG/DL (7-18); BUN/CREATININE RATIO 9; CALCIUM 9.1 MG/DL (8.5-10.1); CARBON DIOXIDE 24 MMOL/L (21-32); CHLORIDE 107 MMOL/L (98-107); CREATININE SERUM 0.76 MG/DL (0.60-1.30); GFR ESTIMATED > 60; GLUCOSE 210 MG/DL (70-105); LIPASE 27 U/L (8-78); POTASSIUM 3.7 MMOL/L (3.6-5.0); SODIUM 140 MMOL/L (135-145)
--- NOTE | 2016-06-07 22:28 | ED Abdominal Pain ---
General Chief Complaint: Abdominal/GI Problems Stated Complaint: VOMITING, HERNIA, PAIN Nursing Triage Note: PT REPORTS SHE HAS A HIATAL HERNIA AND THAT SHE HAS HAD ABD PAIN, NAUSEA, BELCHING, AND FREQUENT ACIDIC TASTES. SHE ALSO STATES THAT SHE HAS ULCERS. Sepsis Screen: No Definite Risk Source of Information: Patient Exam Limitations: No Limitations History of Present Illness Time Seen By Provider: 21:00 Initial Comments This 46 old woman presents to the emergency room with complaints of epigastric pain radiating to the flanks with associated nausea and vomiting. She denies diarrhea or fever. Symptoms started about 3 days ago. Last bowel movement was normal and was at 10:15. She reports a history of esophageal erosions and stomach ulcers. She feels bloated and complains of excessive belching. She had a negative call bladder ultrasound and hepatobiliary scan in December of last year. She reports having a swallowing issue for which she has had swallow evaluation performed. I do not see the results of that testing in her chart. She had endoscopy performed by Dr. Botello in February demonstrating hiatal hernia and gastritis. She has also seen in Dr. Orozco the past. Her primary care provider is Talha Mi at [facility]. Patient is vomiting in the room during assessment. Allergies and Home Medications Allergies Coded Allergies: Penicillins (Verified Allergy, Mild, 03/10/16) Home Medications Albuterol Sulfate 8.5 Gm Hfa.aer.ad, 1-2 PUFF IH Q4H PRN for WHEEZING, #1 Prescribed by: LISS BAGLEY on 04/16/16 2203 Cetirizine HCl 10 Mg Capsule, 10 MG PO DAILY, (Reported) Guaifenesin 100 Mg Gran.pack, Unknown Dose PO, (Reported) Hyoscyamine Sulfate 0.125 Mg Tablet, 0.125 MG PO Q4H PRN for CRAMPS, #20 Ref 0 Prescribed by: WILEY AMBRIZ on 04/05/16 0234 Insulin Glargine,Hum.rec.anlog 100 Unit/1 Ml Insuln.pen, 47 UNITS SC DAILY, #30 (Reported) Lovastatin 40 Mg Tablet, 40 MG PO DAILY, #30 (Reported) Metformin HCl 1,000 Mg Tablet, 1,000 MG PO BID, #60 (Reported) Pantoprazole Sodium 40 Mg Tablet.dr, 40 MG PO DAILY, #14 Prescribed by: LISS BAGLEY on 6/13/16 2159 Prednisone 20 Mg Tab, 40 MG PO DAILY for 5 Days Prescribed by: LISS BAGLEY on 04/16/16 2203 Sucralfate 1 Gm Tablet, 1 GM PO QID, #120 Prescribed by: SHARLA GORE on 02/21/16 1327 Sucralfate 1 Gm Tablet, 1 GM PO QID, #120 Ref 0 Prescribed by: WILEY AMBRIZ on 04/23/16 0004 Review of Systems Constitutional: no symptoms reported EENTM: No Symptoms Reported Respiratory: No Symptoms Reported Cardiovascular: No Symptoms Reported Gastrointestinal: See HPI Genitourinary: No Symptoms Reported Musculoskeletal: no symptoms reported Skin: no symptoms reported Psychiatric/Neurological: No Symptoms Reported Endocrine: No Symptoms Reported Past Ujgeulx-Mgrxqz-Lxpsum Hx Patient Social History Alcohol Use: Denies Use Recreational Drug Use: No Smoking Status: Never a Smoker 2nd Hand Smoke Exposure: No Recent Foreign Travel: No Contact w/Someone Who Travel: No Recent Infectious Disease Expo: No Recent Hopitalizations: No Immunizations Up To Date Tetanus Booster (TDap): Unknown Date of Influenza Vaccine: Dec 12, 2015 Seasonal Allergies Seasonal Allergies: No Surgeries HX Surgeries: Yes (l knee surgery, endoscopy, eye) Surgeries: Abdominal (endoscopy), Eye Surgery, Orthopedic Respiratory Hx Respiratory Disorders: Yes Respiratory Disorders: Asthma Cardiovascular Hx Cardiac Disorders: Yes Cardiac Disorders: High Cholesterol Neurological Hx Neurological Disorders: No Reproductive System Hx Reproductive Disorders: No Sexually Transmitted Disease: No HIV/AIDS: No Female Reproductive Disorders: Denies Genitourinary Hx Genitourinary Disorders: Yes Genitourinary Disorders: UTI-Chronic Gastrointestinal Hx Gastrointestinal Disorders: Yes (ESOPHAGEAL NARROWING) Gastrointestinal Disorders: Gastroesophageal Reflux, Hiatal Hernia, Ulcer Musculoskeletal Hx Musculoskeletal Disorders: Yes Musculoskeletal Disorders: Arthritis, Scoliosis Endocrine Hx Endocrine Disorders: Yes Endocrine Disorders: Diabetes, Insulin dep HEENT HX ENT Disorders: No Loss of Vision: Denies Hearing Impairment: Denies Cancer Hx Cancer: No Psychosocial Hx Psychiatric Problems: No Integumentary HX Skin/Integumentary Disorder: No Blood Transfusions Hx Blood Disorders: No Family Medical History Significant Family History: No Pertinent Family Hx Physical Exam Vital Signs VS - Last 72 Hours, by Label 06/07/16 20:20 Temp 98.2 Pulse 90 Resp 18 B/P (MAP) 158/99 Pulse Ox 98 O2 Delivery Room Air Capillary Refill : Less Than 3 Seconds General Appearance: WD/WN, moderate distress HEENT: PERRL/EOMI, normal ENT inspection, pharynx normal Neck: normal inspection Respiratory: lungs clear, normal breath sounds, no respiratory distress, no accessory muscle use Cardiovascular: regular rate, rhythm, no edema, no murmur Gastrointestinal: normal bowel sounds, soft, distended, tenderness (focused around the epigastrium. No focal tenderness over the right upper quadrant) Extremities: normal inspection, no pedal edema Neurologic/Psychiatric: feather shaper II-XII nml as tested, no motor/sensory deficits, alert, normal mood/affect, oriented x 3 Skin: normal color, warm/dry Progress/Results/Core Measures Results/Orders Lab Results Laboratory Tests Test 06/07/16 21:22 06/07/16 21:47 Range/Units Urine Color YELLOW Urine Clarity SLIGHTLY CLOUDY Urine pH 6.5 5-9 Urine Specific [place] 1.010 L 1.016-1.022 Urine Protein NEGATIVE NEGATIVE Urine Glucose (UA) 4+ H NEGATIVE Urine Ketones NEGATIVE NEGATIVE Urine Nitrite NEGATIVE NEGATIVE Urine Bilirubin NEGATIVE NEGATIVE Urine Urobilinogen NORMAL NORMAL MG/DL Urine Leukocyte Esterase 2+ H NEGATIVE Urine RBC (Auto) NEGATIVE NEGATIVE Urine RBC RARE /HPF Urine WBC 2-5 /HPF Urine Squamous Epithelial Cells 5-10 /HPF Urine Crystals NONE /LPF Urine Bacteria TRACE /HPF Urine Casts NONE /LPF Urine Mucus NEGATIVE /LPF Urine Culture Indicated NO White Blood Count 8.8 4.3-11.0 10^3/uL Red Blood Count 4.05 L 4.35-5.85 10^6/uL Hemoglobin 10.2 L 11.5-16.0 G/DL Hematocrit 32 L 35-52 % Mean Corpuscular Volume 80 80-99 FL Mean Corpuscular Hemoglobin 25 25-34 PG Mean Corpuscular Hemoglobin Concent 32 32-36 G/DL Red Cell Distribution Width 16.5 H 10.0-14.5 % Platelet Count 471 H 130-400 10^3/uL Mean Platelet Volume 9.3 7.4-10.4 FL Neutrophils (%) (Auto) 59 42-75 % Lymphocytes (%) (Auto) 32 12-44 % Monocytes (%) (Auto) 6 0-12 % Eosinophils (%) (Auto) 3 0-10 % Basophils (%) (Auto) 0 0-10 % Neutrophils # (Auto) 5.2 1.8-7.8 X 10^3 Lymphocytes # (Auto) 2.8 1.0-4.0 X 10^3 Monocytes # (Auto) 0.5 0.0-1.0 X 10^3 Eosinophils # (Auto) 0.2 0.0-0.3 10^3/uL Basophils # (Auto) 0.0 0.0-0.1 10^3/uL Sodium Level 140 135-145 MMOL/L Potassium Level 3.7 3.6-5.0 MMOL/L Chloride Level 107 98-107 MMOL/L Carbon Dioxide Level 24 21-32 MMOL/L Anion Gap 9 5-14 MMOL/L Blood Urea Nitrogen 7 7-18 MG/DL Creatinine 0.76 0.60-1.30 MG/DL Estimat Glomerular Filtration Rate > 60 BUN/Creatinine Ratio 9 Glucose Level 210 H 70-105 MG/DL Calcium Level 9.1 8.5-10.1 MG/DL Total Bilirubin 0.3 0.1-1.0 MG/DL Aspartate Amino Transf (AST/SGOT) 17 5-34 U/L Alanine Aminotransferase (ALT/SGPT) 19 0-55 U/L Alkaline Phosphatase 65 40-136 U/L Total Protein 7.0 6.4-8.2 G/DL Albumin 3.8 3.2-4.5 G/DL Lipase 27 8-78 U/L Serum Test, Qualitative NEGATIVE NEGATIVE My Orders Orders - YADIRA WHITEHEAD MD Ua Culture If Indicated (06/07/16 21:00) Cbc With Automated Diff (06/07/16 21:26) Comprehensive Metabolic Panel (06/07/16 21:26) Hcg,Qualitative Serum (06/07/16 21:26) Lipase (06/07/16 21:26) Saline Lock/Iv-Start (06/07/16 21:26) Ns Iv 1000 Ml (Sodium Chloride 0.9%) (06/07/16 21:26) Famotidine Injection (Pepcid Injection) (06/07/16 21:30) Ondansetron Injection (Zofran Injectio (06/07/16 21:30) Fentanyl Injection (Sublimaze Injection (06/07/16 21:30) Ct Abdomen/Pelvis W (06/07/16 22:28) Iohexol Injection (Omnipaque 350 Mg/Ml 1 (06/07/16 22:45) Ns (Ivpb) (Sodium Chloride 0.9% Ivpb Bag (06/07/16 22:45) Medications Given in ED Current Medications Medications Dose Ordered Sig/Hunter Route Start Time Stop Time Status Last Admin Dose Admin Benzocaine 1 ea STK-MED ONCE .ROUTE 06/08/16 00:02 06/08/16 00:05 DC 06/08/16 00:10 1 EA Famotidine 20 mg ONCE ONCE IVP 06/07/16 21:30 06/07/16 21:31 DC 06/07/16 21:39 20 MG Fentanyl Citrate 50 mcg ONCE ONCE IVP 06/07/16 21:30 06/07/16 21:31 DC 06/07/16 21:40 50 MCG Iohexol 100 ml ONCE ONCE IV 06/07/16 22:45 06/07/16 22:46 DC 06/07/16 22:43 100 ML Ondansetron HCl 8 mg ONCE ONCE IVP 06/07/16 21:30 06/07/16 21:31 DC 06/07/16 21:39 8 MG Sodium Chloride 100 ml ONCE ONCE IV 06/07/16 22:45 06/07/16 22:46 DC 06/07/16 22:44 80 ML Sodium Chloride 1,000 ml @ 0 mls/hr Q0M ONCE IV 06/07/16 21:26 06/07/16 21:28 DC 06/07/16 21:40 0 MLS/HR Vital Signs/I&O Vital Sign - Last 12Hours 06/07/16 20:20 Temp 98.2 Pulse 90 Resp 18 B/P (MAP) 158/99 Pulse Ox 98 O2 Delivery Room Air Intake and Output 06/08/16 00:00 Intake Total 1000 ml Balance 1000 ml Blood Pressure Mean: 118 Progress Note #1: Time: 22:27 Progress Note Patient was seen and examined. Pepcid, fentanyl, and Zofran were ordered for symptom management. IV fluids were initiated. Labs have been reviewed. Creatinine is normal. CT of the abdomen and pelvis will be obtained. Progress Note #2: Time: 23:[address] demonstrated a dilated stomach filled with air as well as a small segment of dilated small bowel. The radiologist read it as ileus. However, I am concerned that she actually has an early small bowel obstruction based on her symptoms. Patient seems to be swallowing frequently. She reports having some problems with swallowing and has had a swallow study in the past. I believe she is probably swallowing a lot of air that is contributing to her problem. I offered an NG tube and patient would like that attempted. She is going to be admitted for observation as she does not feel her symptoms will be managed well at home and she has been struggling for 3 days. Toradol will be used for pain to have further avoid complicating ileus with narcotics. Diagnostic Imaging Diagonstic Imaging: CT Plain Films/CT/US/NM/MRI: abdomen, pelvis Comments CT abdomen and pelvis viewed by me and Stat Rad report reviewed. There is distention of the stomach with air. There is a short segment of small bowel dilatation with suspected ileus per radiologist report. Suspected uterine fibroid. Departure Communication Time/Spoke to Admitting Phy: 23:55 Communication Case reviewed with Dr. Toney is agreeable to admission for observation. Impression Impression: Primary Impression: Upper abdominal pain Additional Impressions: Ileus Nausea and vomiting Qualified Codes: R11.2 - Nausea with vomiting, unspecified Disposition: ADMITTED INPATIENT Condition: Improved Decision to Admit Reason: Admit from ER (General) Decision to Admit/Date: Jun 07, 2016 Time/Decision to Admit Time: 23:55 Departure-Patient Inst. Referrals: RIAZ REAL DO (PCP) Primary Care Physician CHERRY MI (Family) Primary Care Physician YADIRA WHITEHEAD MD Jun 07, 2016 22:28
[2016-06-07] MEDS ORDERED: IOHEXOL 350 MG/ML 100 ML (OMNIPAQUE 350) VIAL IV ONE (22:45)
[2016-06-07] MEDS ORDERED: NS 100 ML (IVPB) BAG IV ONE (22:45)
[2016-06-08] MEDS ORDERED: HURRICAINE EXT TUBE (BENZOCAINE) ONE (00:02)
[2016-06-08 01:20] VITALS: BP 143/92
[2016-06-08] MEDS: NS W/KCL 20 MEQ/L 1,000 ML IV SCH ×4 (02:10→20:25)
[2016-06-08 04:05] VITALS: BP 142/87
[2016-06-08] MEDS ORDERED: PROMETHAZINE INJ 25 MG/ML (PHENERGAN) AMP IV PRN (05:45)
[2016-06-08] MEDS: inSUlin (REGULAR) HUMAN 1 UNIT/0.01 ML (CHARGE PER UNIT) SC SCH ×4 (05:51→19:30)
[2016-06-08] MEDS: CATHETER FLUSH 10 ML SYR IV SCH ×3 (05:51→22:00)
[2016-06-08] MEDS ORDERED: CATHETER FLUSH 10 ML SYR IV PRN (06:00)
--- NOTE | 2016-06-08 06:56 | Diagnostic Imaging Report ---
INDICATION: Gastric tube placement. TECHNIQUE: Single view chest 12:25 AM. CORRELATION STUDY: 05/23/2016 FINDINGS: Heart size is borderline. Vasculature within normal limits. Lungs overall relatively clear. May be mildly prominent interstitial markings. Gastric tube is present tip in the left upper quadrant likely within the region the body of the stomach. IMPRESSION: 1. Gastric tube is in place tip likely at the region of the proximal body of the stomach. Dictated by: Dictated on workstation # [id number]
--- NOTE | 2016-06-08 07:24 | Diagnostic Imaging Report ---
PROCEDURE: CT abdomen and pelvis with contrast. TECHNIQUE: Multiple contiguous axial images were obtained through the abdomen and pelvis after administration of intravenous contrast. INDICATION: Abdominal pain. 100 mL of Omnipaque 350 is administered intravenously. FINDINGS: The lung bases appear clear. The liver, the gallbladder, the spleen, and adrenal glands appear unremarkable. The kidneys have symmetric enhancement and excretion. There is no hydronephrosis. The abdominal aorta is normal in caliber. No para-aortic significantly enlarged lymph nodes are seen. There is an enhancing nodule in the right side of the uterus likely related to a fibroid. The appendix is not seen on this exam. There is prominent gastric and jejunal loop distention with no significant air-fluid levels or focal transition point to suggest obstruction. This may relate to mild gastroenteritis. Correlate clinically. No significant inflammatory changes in the abdominal fat or bowel thickening is seen. There is no free fluid or fluid collection in the abdomen or pelvis identified. The osseous structures appear grossly unremarkable. IMPRESSION: 1. Nonspecific mild dilatation of the stomach and proximal jejunal loops with minimal air-fluid levels, could relate to mild gastroenteritis. Correlate clinically. 2. Suggestion of a uterine fibroid measuring 2.5 cm. 3. The appendix is not seen. This reading agrees with the [facility] report. Dictated by: Dictated on workstation # [id number]
[2016-06-08 08:00] VITALS: BP 150/94
[2016-06-08] MEDS ORDERED: HYOS0.1216 SL (08:28)
[2016-06-08] MEDS ORDERED: PANT40TA3 PO (08:28)
[2016-06-08] MEDS ORDERED: SUCR1TAB36 PO (08:35)
[2016-06-08] MEDS ORDERED: ONDA8TAB12 PO (08:35)
[2016-06-08] MEDS ORDERED: GUAI400T71 PO (08:35)
[2016-06-08] MEDS ORDERED: FLUT1BLS IH (08:35)
[2016-06-08] MEDS ORDERED: ACET-2267 PO (08:35)
[2016-06-08] MEDS: PANTOPRAZOLE 40 MG/10 ML (PROTONIX) VIAL IV SCH ×2 (08:38→20:25)
[2016-06-08] MEDS: ONDANSETRON 4 MG/2 ML (SDV) Z0FRAN IV PRN ×3 (09:17→19:38)
[2016-06-08] MEDS: KETOROLAC 30 MG/ML VIAL IV PRN ×2 (09:22→14:44)
[2016-06-08 12:00] VITALS: BP 153/82
[2016-06-08 15:30] VITALS: BP 146/96
[2016-06-08 19:45] VITALS: BP 149/83
[2016-06-09] VITALS: BP 134/78
[2016-06-09 04:00] VITALS: BP 153/91
[2016-06-09] MEDS: CATHETER FLUSH 10 ML SYR IV SCH (04:38)
[2016-06-09] MEDS: NS W/KCL 20 MEQ/L 1,000 ML IV SCH (04:39)
[2016-06-09 05:03] LABS: BASOPHILS % (AUTO) 0 % (0-10); EOSINOPHILS # (AUTO) 0.2 10^3/uL (0.0-0.3); EOSINOPHILS % (AUTO) 3 % (0-10); LYMPHOCYTES # (AUTO) 2.2 X 10^3 (1.0-4.0); LYMPHOCYTES % (AUTO) 31 % (12-44); MEAN CORPUSCULAR HEMOGLOBIN 25 PG (25-34); MEAN CORPUSCULAR HGB CONC 31 G/DL (32-36); MEAN CORPUSCULAR VOLUME 80 FL (80-99); MEAN PLATELET VOLUME 9.3 FL (7.4-10.4); MONOCYTES # (AUTO) 0.5 X 10^3 (0.0-1.0); MONOCYTES % (AUTO) 7 % (0-12); NEUTROPHILS # (AUTO) 4.2 X 10^3 (1.8-7.8); NEUTROPHILS % (AUTO) 59 % (42-75); PLATELET COUNT 459 10^3/uL (130-400); RED BLOOD COUNT 4.13 10^6/uL (4.35-5.85); RED CELL DISTRIBUTION WIDTH 16.5 % (10.0-14.5); WHITE BLOOD COUNT 7.1 10^3/uL (4.3-11.0)
[2016-06-09 05:18] LABS: ALANINE AMINOTRANSFERASE 16 U/L (0-55); ALBUMIN 3.2 G/DL (3.2-4.5); ANION GAP 7 MMOL/L (5-14); ASPARTATE AMINO TRANSFERASE 17 U/L (5-34); BILIRUBIN,TOTAL 0.5 MG/DL (0.1-1.0); BLOOD UREA NITROGEN 3 MG/DL (7-18); BUN/CREATININE RATIO 5; CARBON DIOXIDE 20 MMOL/L (21-32); CHLORIDE 112 MMOL/L (98-107); CREATININE SERUM 0.62 MG/DL (0.60-1.30); GFR ESTIMATED > 60; GLUCOSE 160 MG/DL (70-105); POTASSIUM 4.2 MMOL/L (3.6-5.0); SODIUM 139 MMOL/L (135-145); TOTAL PROTEIN 6.2 G/DL (6.4-8.2)
[2016-06-09] MEDS: inSUlin (REGULAR) HUMAN 1 UNIT/0.01 ML (CHARGE PER UNIT) SC SCH ×2 (05:50→09:30)
[2016-06-09 08:00] VITALS: BP 143/89
[2016-06-09] MEDS: PANTOPRAZOLE 40 MG/10 ML (PROTONIX) VIAL IV SCH (09:40)
--- NOTE | 2016-06-09 14:46 | Discharge Instructions ---
Discharge [facility] Discharge Medications New, Converted or Re-Newed RX: Other (No new medications) Continued Medications: Acetaminophen (Tylenol Extra Strength) 500 Mg Tablet 1000 MG PO Q6H PRN for PAIN, TAB Cetirizine HCl (Zyrtec) 10 Mg Capsule 10 MG PO DAILY, CAP Fluticasone/Vilanterol (Breo Ellipta 200-25 Mcg INH) 1 Each Blst.w.dev 1 PUFF IH DAILY Guaifenesin (Guaifenesin) 400 Mg Tablet 400 MG PO BID, TAB Hyoscyamine Sulfate (Hyoscyamine Sulfate) 0.125 Mg Tablet 0.125 MG SL AC PRN for CHOKING, TAB Insulin Glargine,Hum.rec.anlog (Lantus Solostar) 100 Unit/1 Ml Insuln.pen 56 UNITS SC HS, EA Metformin HCl (Metformin HCl) 1,000 Mg Tablet 1000 MG PO BID, TAB Ondansetron HCl (Ondansetron HCl) 8 Mg Tablet 8 MG PO TID PRN for NAUSEA, TAB Pantoprazole Sodium (Pantoprazole Sodium) 40 Mg Tablet.dr 40 MG PO DAILY, TAB Sucralfate (Carafate) 1 Gm Tablet 1 GM PO BID, TAB Patient Instructions Goal/Follow Up Appt: You need to call the clinic and get your follow up appointment with Talha Mi, It has already been made for you Patient Instructions: Craven diet Make sure to stay well hydrated Return to The Hospital For: Blood in vomit or stool Severe abdominal pain Activity & Diet Discharge Diet: Liquid Diet, Soft Diet Activity as Tolerated: Yes Copy Copies To 1: Talha ARMSTRONG HOLLY R MD Jun 09, 2016 14:46
--- NOTE | 2016-06-09 14:48 | Discharge Summary ---
Diagnosis/Chief Complaint Date of Admission Jun 08, 2016 at 01:20 Date of Discharge 06/09/16 Admission Diagnosis Admission Diagnosis Ileus Nausea and Vomiting Abdominal Pain Hiatal Hernia Discharge Diagnosis See Above Chief Complaint/HPI Chief Complaint/HPI 46 yo F that presented with severe abdominal pain and PO intolerance Discharge Summary-Simple/Stand Procedures CT: showed ileus Discharge Physical Examination Allergies: Coded Allergies: Penicillins (Verified Allergy, Mild, 03/10/16) Vitals & I&Os Vital Sign - Last 12Hours Date Time Temp Pulse Resp B/P (MAP) Pulse Ox O2 Delivery O2 Flow Rate FiO2 06/09/16 08:00 97.9 84 20 143/89 97 Room Air Intake and Output 06/09/16 00:00 Intake Total 1600 ml Output Total 1300 ml Balance 300 ml General Appearance: Alert, Oriented X3, Cooperative, No Acute Distress Respiratory: Clear to Auscultation, Normal Air Movement Cardiovascular: Regular Rate, No Murmurs Abdominal: Normal Bowel Sounds, Soft, No Hepatosplenomegaly, Other (mild epigastric tenderness to palpation) Extremities: No Edema, Normal Pulses, No Tenderness/Swelling Skin: No Rashes Neuro: Normal Gait, Normal Speech, Strength at 5/5 X4 Ext, Cranial Nerves 3-12 NL Psych/Mental Status: Mental Status NL, Mood NL Hospital Course See final discharge diagnosis. Pending Labs None pending Discussion & Recommendations 46 yo F that presented with ileus likely from hiatal hernia. Encouraged patient to get into see her surgeon for repair. Patient tolerated bland diet at time of discharge. Encouraged her to continue this bland diet until seen by surgery. Has close follow up with [facility] Discharge Condition at discharge Improved Instructions to patient/family Please see electonic discharge instructions given to patient. Discharge Medications Reviewed and agree with Discharge Medication list on patient's Discharge Instruction sheet Clinical Quality Measures DVT/VTE Risk/Contraindication: Risk Factor Score Per Nursin RFS Level Per Nursing on Admit: 2=Moderate Copy Copies To 1: [facility], Talha Mi; JESUS DODD MD, HOLLY R MD Jun 09, 2016 14:48
--- NOTE | 2016-06-09 14:49 | History & Physicial (CHS) ---
HPI History of Present Illness: 46 yo F admitted with abdominal pain with nausea and vomiting. Patient has known hiatal hernia that she is currently following with surgery. She has respiratory illness so surgery was postponed. Patient has worsening abdominal pain and was unable to tolerate diet. Started 1 day prior to admission. Denies any blood in vomit or stool. She was trying to use zofran but that was not even staying down. + bowel movement in the last 24 hrs. Source: patient, RN/MD Exam Limitations: no limitations Date seen by provider: Jun 08, 2016 Time seen by provider: 10:15 Attending Physician Valerie Toney MD PCP Barbi White DO Consult Date of Admission Jun 08, 2016 at 01:20 Home Medications Home Medications Reviewed patient Home Medication Reconciliation Form Allergies Coded Allergies: Penicillins (Verified Allergy, Mild, 03/10/16) ZOE-Wnhvra-Qoioff Hx Patient Social History Alcohol Use: Denies Use Recreational Drug Use: No Smoking Status: Never a Smoker 2nd Hand Smoke Exposure: No Recent Foreign Travel: No Contact w/other who traveled: No Recent Hopitalizations: No Recent Infectious Disease Expo: No Physical Abuse Screen: No Sexual Abuse: No Immunizations Up To Date Tetanus Booster (TDap): Unknown Date of Influenza Vaccine: Jan 10, 2016 Past Medical History Large Hiatal Hernia Insuln Dependent DM Family Medical History Significant Family History: No Pertinent Family Hx Family History: Arthritis 19 FATHER 19 MOTHER G8 SISTER Asthma 19 FATHER 19 MOTHER G8 SISTER Cataracts 19 MOTHER Diabetes mellitus 19 FATHER 19 MOTHER G8 SISTER FH: leukemia 19 FATHER Myocardial infarction 19 MOTHER Parkinson's disease 19 FATHER Thyroid disease 19 MOTHER Review of Systems (CHC) Constitutional: No chills, No fever, weakness, weight loss EENTM: no symptoms reported Respiratory: cough, No dyspnea on exertion, No hemoptysis, No short of breath Cardiovascular: no symptoms reported, No chest pain, No edema, No palpitations Gastrointestinal: abdominal pain, No constipation, No diarrhea, No hematemesis , heartburn, No melena, nausea, vomiting Genitourinary: no symptoms reported, No dysuria, No frequency, No hematuria : No Musculoskeletal: No back pain, No joint pain, No muscle pain Skin: no symptoms reported, No pruritus, No rash Psychiatric/Neurological: No Symptoms Reported, Denies Anxiety, Denies Depressed Reviewed Test Results Reviewed Test Results Lab Laboratory Tests Test 06/07/16 21:22 06/07/16 21:47 06/08/16 05:09 06/08/16 13:15 Range/Units Urine Color YELLOW Urine Clarity SLIGHTLY CLOUDY Urine pH 6.5 5-9 Urine Specific [place] 1.010 L 1.016-1.022 Urine Protein NEGATIVE NEGATIVE Urine Glucose (UA) 4+ H NEGATIVE Urine Ketones NEGATIVE NEGATIVE Urine Nitrite NEGATIVE NEGATIVE Urine Bilirubin NEGATIVE NEGATIVE Urine Urobilinogen NORMAL NORMAL MG/DL Urine Leukocyte Esterase 2+ H NEGATIVE Urine RBC (Auto) NEGATIVE NEGATIVE Urine RBC RARE /HPF Urine WBC 2-5 /HPF Urine Squamous Epithelial Cells 5-10 /HPF Urine Crystals NONE /LPF Urine Bacteria TRACE /HPF Urine Casts NONE /LPF Urine Mucus NEGATIVE /LPF Urine Culture Indicated NO White Blood Count 8.8 4.3-11.0 10^3/uL Red Blood Count 4.05 L 4.35-5.85 10^6/uL Hemoglobin 10.2 L 11.5-16.0 G/DL Hematocrit 32 L 35-52 % Mean Corpuscular Volume 80 80-99 FL Mean Corpuscular Hemoglobin 25 25-34 PG Mean Corpuscular Hemoglobin Concent 32 32-36 G/DL Red Cell Distribution Width 16.5 H 10.0-14.5 % Platelet Count 471 H 130-400 10^3/uL Mean Platelet Volume 9.3 7.4-10.4 FL Neutrophils (%) (Auto) 59 42-75 % Lymphocytes (%) (Auto) 32 12-44 % Monocytes (%) (Auto) 6 0-12 % Eosinophils (%) (Auto) 3 0-10 % Basophils (%) (Auto) 0 0-10 % Neutrophils # (Auto) 5.2 1.8-7.8 X 10^3 Lymphocytes # (Auto) 2.8 1.0-4.0 X 10^3 Monocytes # (Auto) 0.5 0.0-1.0 X 10^3 Eosinophils # (Auto) 0.2 0.0-0.3 10^3/uL Basophils # (Auto) 0.0 0.0-0.1 10^3/uL Sodium Level 140 135-145 MMOL/L Potassium Level 3.7 3.6-5.0 MMOL/L Chloride Level 107 98-107 MMOL/L Carbon Dioxide Level 24 21-32 MMOL/L Anion Gap 9 5-14 MMOL/L Blood Urea Nitrogen 7 7-18 MG/DL Creatinine 0.76 0.60-1.30 MG/DL Estimat Glomerular Filtration Rate > 60 BUN/Creatinine Ratio 9 Glucose Level 210 H 70-105 MG/DL Calcium Level 9.1 8.5-10.1 MG/DL Total Bilirubin 0.3 0.1-1.0 MG/DL Aspartate Amino Transf (AST/SGOT) 17 5-34 U/L Alanine Aminotransferase (ALT/SGPT) 19 0-55 U/L Alkaline Phosphatase 65 40-136 U/L Total Protein 7.0 6.4-8.2 G/DL Albumin 3.8 3.2-4.5 G/DL Lipase 27 8-78 U/L Serum Test, Qualitative NEGATIVE NEGATIVE Glucometer 113 H 199 H 70-110 MG/DL Test 06/08/16 19:41 06/09/16 00:29 06/09/16 04:30 06/09/16 09:36 Range/Units Glucometer 175 H 149 H 165 H 70-110 MG/DL White Blood Count 7.1 4.3-11.0 10^3/uL Red Blood Count 4.13 L 4.35-5.85 10^6/uL Hemoglobin 10.4 L 11.5-16.0 G/DL Hematocrit 33 L 35-52 % Mean Corpuscular Volume 80 80-99 FL Mean Corpuscular Hemoglobin 25 25-34 PG Mean Corpuscular Hemoglobin Concent 31 L 32-36 G/DL Red Cell Distribution Width 16.5 H 10.0-14.5 % Platelet Count 459 H 130-400 10^3/uL Mean Platelet Volume 9.3 7.4-10.4 FL Neutrophils (%) (Auto) 59 42-75 % Lymphocytes (%) (Auto) 31 12-44 % Monocytes (%) (Auto) 7 0-12 % Eosinophils (%) (Auto) 3 0-10 % Basophils (%) (Auto) 0 0-10 % Neutrophils # (Auto) 4.2 1.8-7.8 X 10^3 Lymphocytes # (Auto) 2.2 1.0-4.0 X 10^3 Monocytes # (Auto) 0.5 0.0-1.0 X 10^3 Eosinophils # (Auto) 0.2 0.0-0.3 10^3/uL Basophils # (Auto) 0.0 0.0-0.1 10^3/uL Sodium Level 139 135-145 MMOL/L Potassium Level 4.2 3.6-5.0 MMOL/L Chloride Level 112 H 98-107 MMOL/L Carbon Dioxide Level 20 L 21-32 MMOL/L Anion Gap 7 5-14 MMOL/L Blood Urea Nitrogen 3 L 7-18 MG/DL Creatinine 0.62 0.60-1.30 MG/DL Estimat Glomerular Filtration Rate > 60 BUN/Creatinine Ratio 5 Glucose Level 160 H 70-105 MG/DL Calcium Level 8.0 L 8.5-10.1 MG/DL Total Bilirubin 0.5 0.1-1.0 MG/DL Aspartate Amino Transf (AST/SGOT) 17 5-34 U/L Alanine Aminotransferase (ALT/SGPT) 16 0-55 U/L Alkaline Phosphatase 54 40-136 U/L Total Protein 6.2 L 6.4-8.2 G/DL Albumin 3.2 3.2-4.5 G/DL Test 06/09/16 11:55 Range/Units Glucometer 199 H 70-110 MG/DL Radiology Date of Exam: 06/07/16 CT ABDOMEN/PELVIS W PROCEDURE: CT abdomen and pelvis with contrast. TECHNIQUE: Multiple contiguous axial images were obtained through the abdomen and pelvis after administration of intravenous contrast. INDICATION: Abdominal pain. 100 mL of Omnipaque 350 is administered intravenously. FINDINGS: The lung bases appear clear. The liver, the gallbladder, the spleen, and adrenal glands appear unremarkable. The kidneys have symmetric enhancement and excretion. There is no hydronephrosis. The abdominal aorta is normal in caliber. No para-aortic significantly enlarged lymph nodes are seen. There is an enhancing nodule in the right side of the uterus likely related to a fibroid. The appendix is not seen on this exam. There is prominent gastric and jejunal loop distention with no significant air-fluid levels or focal transition point to suggest obstruction. This may relate to mild gastroenteritis. Correlate clinically. No significant inflammatory changes in the abdominal fat or bowel thickening is seen. There is no free fluid or fluid collection in the abdomen or pelvis identified. The osseous structures appear grossly unremarkable. IMPRESSION: 1. Nonspecific mild dilatation of the stomach and proximal jejunal loops with minimal air-fluid levels, could relate to mild gastroenteritis. Correlate clinically. 2. Suggestion of a uterine fibroid measuring 2.5 cm. 3. The appendix is not seen. This reading agrees with the [facility] report. Physical Exam-([facility]) Physical Exam Vital Signs VS - Last 72 Hours, by Label 06/08/16 06/08/16 06/08/16 06/08/16 01:15 01:20 01:20 04:05 Temp 98.2 98.5 98.2 Pulse 86 85 88 Resp 18 20 18 B/P (MAP) 143/92 142/87 Pulse Ox 98 100 100 99 O2 Delivery Room Air Room Air Room Air 06/08/16 06/08/16 06/08/16 06/08/16 08:00 12:00 15:30 19:45 Temp 96.6 98.4 98.4 98.2 Pulse 84 81 83 82 Resp 20 20 18 20 B/P (MAP) 150/94 153/82 146/96 149/83 Pulse Ox 100 96 95 100 O2 Delivery Room Air Room Air Room Air Room Air 06/09/16 06/09/16 06/09/16 06/09/16 00:00 04:00 08:00 15:16 Temp 97.6 97.9 97.9 Pulse 70 83 84 Resp 20 20 20 B/P (MAP) 134/78 153/91 143/89 Pulse Ox 97 98 97 O2 Delivery Room Air Room Air Room Air Capillary Refill : Less Than 3 Seconds General Appearance: WD/WN, no apparent distress HEENT: PERRL/EOMI, other (NG in place) Neck: non-tender, full range of motion, supple, normal inspection Respiratory: chest non-tender, lungs clear, normal breath sounds, no respiratory distress, no accessory muscle use Cardiovascular: normal peripheral pulses, regular rate, rhythm, no edema, no gallop, no JVD, no murmur Gastrointestinal: normal bowel sounds, soft, no organomegaly, tenderness ( epigastric and LLQ) Extremities: normal range of motion, non-tender, normal inspection, no pedal edema, no calf tenderness, normal capillary refill Neurologic/Psychiatric: veterans adviser II-XII nml as tested, no motor/sensory deficits, alert, normal mood/affect, oriented x 3 Skin: normal color, warm/dry Lymphatic: no adenopathy Assessment/Plan Assessment/Plan Admission Dx Ileus Nausea and Vomiting Abdominal Pain Hiatal Hernia Plan 46 yo F with known large hiatal hernia that presented with PO intolerance Plan Moderate Abdominal pain - likely 2/2 to hiatal hernia with ileus - NG placed to decompress stomach with immediate return of bilious fluid Nausea and Vomiting - IV anti emetics Hiatal Hernia - See above, needs to get in with surgery as outpatient FEN: NPO DVT PPX: Lovenox Dispo: Admit to medical floor Diagnosis/Problems: Clinical Quality Measures DVT/VTE Risk/Contraindication: Risk Factor Score Per Nursin RFS Level Per Nursing on Admit: 2=Moderate Copy Copies To 1: PATTI, VALERIE Wheat MD Jun 09, 2016 14:49
--- OUTSIDE RECORDS SUMMARY | 2016-07-01 07:05 | XMS REPORT ---
Author Author MARY DAVIS [facility] eClinicalWorks Address Unknown Phone Unavailable Care Team Providers Care Rn Complex Care Name Role Phone MARY DAVIS CP Unavailable Allergies, Adverse Reactions, Alerts Substance Reaction Event Type Penicillin V Potassium Info Not Available Drug Allergy Problems Problem Type Condition Code Onset Dates Condition Status Assessment Vertigo R42 Active Assessment Non-intractable vomiting with nausea, vomiting of unspecified type R11.2 Active Problem Type 2 diabetes mellitus without complication E11.9 Active Medications Medication Code System Code Instructions Start Date End Date Status Dosage Zofran ODT [facility] [address]-18 4 MG Orally every 8 hrs prn nausea and vomiting Apr 12, 2015 1 tablet on the tongue and allow to dissolve Lisinopril [facility] [address]-89 5 mg Mar 31, 2014 take 1 tablet by Oral route 1 time per day voucher 1st fill only Tylenol Sinus Congestion/Pain [facility] [address]-57 5-325-200 MG Orally every 4 hrs 2 tablets as needed Meclizine HCl [facility] [address]-35 25 MG Orally 4 times a day prn dizziness Apr 12, 2015 1 tablet as needed Test strips [facility] 0 August 06, 2014 as directed Glucophage [facility] 02908927907 1000 MG TAKE ONE TABLET BY MOUTH TWICE DAILY Lovastatin [facility] [address]-01 40 mg Mar 31, 2014 take 1 tablet by Oral route with the evening meal 1 time per day voucher 1st fill only Naproxen [facility] [address]-23 500 mg May 31, 2014 take 1 tablet ( 500 mg) by oral route 2 times per day with food Mucinex [facility] [address]-35 600 MG Orally every 12 hrs 1 tablet as needed Acidophilus [facility] 75410-[address]27 100 MG Orally 2 times a day Apr 10, 2015 Apr 17, 2015 1 tablet Doxycycline Hyclate [facility] [address]-19 100 MG Orally every 12 hrs Apr 10, 2015 Apr 20, 2015 1 capsule Lantus SoloStar [facility] [address]-87 100 UNIT/ML Subcutaneous Once a day September 13, 2014 47 units Procedures Procedure Coding System Code Date THER/PROPH/DIAG INJ, SC/IM CPT-4 66158 Apr 12, 2015 Office Visit, Est Pt., Level 3 CPT-4 12045 Apr 12, 2015 PHENERGAN (IM) 25 MG (25 MG/ML) CPT-4 J2550 Apr 12, 2015 Vital Signs Date/Time: Apr 12, 2015 Temperature 98.0 F Weight 198.8 lbs Height 63 in BMI 35.21 Index Blood Pressure Diastolic 86 mmHg Blood Pressure Systolic 124 mmHg Cardiac Monitoring Heart Rate 88 bpm Results No Known Results Summary Purpose eClinicalWorks Submission
--- OUTSIDE RECORDS SUMMARY | 2016-07-01 07:06 | XMS REPORT ---
Author Author ELSA POLK Organization [facility] Address [address] [place] [address] Care Team Providers Care Vp Clinical Research Name Role Phone ELSA POLK Unavailable PROBLEMS Type Condition ICD9-CM Code [id number] Code Onset Dates Condition Status SNOMED Code Problem Type 2 diabetes mellitus without complication E11.9 Active 48811152 Assessment Dysuria R30.0 Nov, Active 08405654 Assessment Abdominal pain, unspecified location R10.9 Nov, Active 12722038 ALLERGIES Substance Reaction Event Type Date Status Penicillin V Potassium Unknown Drug Allergy Nov, Active SOCIAL HISTORY No smoking Hx information available PLAN OF CARE VITAL SIGNS Height 63 in 2015-12-02 Weight 203.6 lbs 2015-12-02 Heart Rate 86 bpm 2015-12-02 Respiratory Rate 20 2015-12-02 BMI 36.06 kg/m2 2015-12-02 Blood pressure systolic 128 mmHg 2015-12-02 Blood pressure diastolic 94 mmHg 2015-12-02 MEDICATIONS Medication Instructions Dosage Frequency Start Date End Date Duration Status Simethicone 80 MG Orally Four times a day 1 tablet after meals and at bedtime as needed 6h Nov, Dec, 10 days Active Cozaar 25 MG Orally Once a day 1 tablet 24h Apr, 30 day(s) Active Lovastatin 40 MG 1 tablet with a meal 24h Mar, Active Macrodantin 100 MG Orally Once a day 1 capsule with food or milk 24h Active Zyrtec Allergy 10 MG Orally Once a day 1 tablet 24h Active Metformin HCl 1000 MG Orally Twice a day 1 tablet with meals 12h Apr, 30 day(s) Active Singulair 10 MG Orally Once a day 1 tablet in the evening 24h May, 30 day(s) Active Ankit Contour Test 1 In Vitro 2 times a day as directed 12h Apr, Active Tylenol 325 MG Orally every 6 hrs 2 tablets as needed 6h Active Lantus SoloStar 100 UNIT/ML Subcutaneous Once a day 47 units 24h 30 Active Protonix 40 mg Orally Once a day 1 tablet 24h Active RESULTS Name Result Date Reference Range UA LONG DIP (IN HOUSE) 2015-12-02 Lot # [id number] Exp date 2016-04 Clarity clear Color dark yellow Odor none GLU 1+ RADHA negative KET negative SG >=1.030 BLO negative pH 6.0 Protein negative URO 0.2 NIT negative JENNA negative Lot # [id number] Exp date 2017-01 PROCEDURES Procedure Date Ordered Related Diagnosis Body Site URINALYSIS, AUTO, W/O SCOPE Dec 02, 2015 Office Visit, Est Pt., Level 3 Dec 02, 2015 IMMUNIZATIONS No Known Immunizations
--- OUTSIDE RECORDS SUMMARY | 2016-07-01 07:06 | XMS REPORT ---
Author Author CHERRY MARTIN Organization e[employer]Works Address Unknown Phone Unavailable Care Team Providers Care Clinical Education Academic Coordinator Name Role Phone CHERRY MARTIN CP Unavailable Allergies No Known Allergies Problems Problem Type Condition Code Onset Dates Condition Status Problem Type 2 diabetes mellitus without complication E11.9 Active Problem Esophageal spasm K22.4 Active Medications No Known Medications Results No Known Results Summary Purpose eClinicalWorks Submission
--- OUTSIDE RECORDS SUMMARY | 2016-07-01 07:06 | XMS REPORT ---
Author Author CHERRY MARTIN Organization [employer] Address Unknown Phone Unavailable Care Team Providers Care Creative Lead Name Role Phone CHERRY MARTIN CP Unavailable Allergies, Adverse Reactions, Alerts Substance Reaction Event Type Penicillin V Potassium Info Not Available Drug Allergy Problems Problem Type Condition Code Onset Dates Condition Status Assessment Diabetes E11.9 Active Problem Type 2 diabetes mellitus without complication E11.9 Active Medications Medication Code System Code Instructions Start Date End Date Status Dosage Glucophage [facility] 98679212016 1000 MG TAKE ONE TABLET BY MOUTH TWICE DAILY Naproxen [facility] [address]-97 500 mg May 31, 2014 take 1 tablet ( 500 mg) by oral route 2 times per day with food Lantus SoloStar [facility] [address]-66 100 UNIT/ML Subcutaneous Once a day September 13, 2014 47 units Test strips [facility] 0 August 06, 2014 as directed Lovastatin [facility] [address]-78 40 mg Mar 31, 2014 take 1 tablet by Oral route with the evening meal 1 time per day voucher 1st fill only Lisinopril [facility] [address]-19 5 mg Mar 31, 2014 take 1 tablet by Oral route 1 time per day voucher 1st fill only Procedures Procedure Coding System Code Date Office Visit, Est Pt., Level 3 CPT-4 36668 Dec 22, 2014 GLYCATED HEMOGLOBIN TEST CPT-4 65558 Dec 22, 2014 Vital Signs Date/Time: Dec 22, 2014 Temperature 98.0 F Weight 196 lbs Height 63 in BMI 34.72 Index Blood Pressure Diastolic 78 mmHg Blood Pressure Systolic 126 mmHg Cardiac Monitoring Heart Rate 70 bpm Results No Known Results Summary Purpose eClinicalWorks Submission
--- OUTSIDE RECORDS SUMMARY | 2016-07-01 07:06 | XMS REPORT ---
Author Author CHERRY MARTIN Organization e[employer] Address Unknown Phone Unavailable Care Team Providers Care Morphologist Name Role Phone CHERRY MARTIN CP Unavailable Allergies, Adverse Reactions, Alerts Substance Reaction Event Type Penicillin V Potassium Info Not Available Drug Allergy Problems Problem Type Condition Code Onset Dates Condition Status Problem Type 2 diabetes mellitus without complication E11.9 Active Assessment Esophageal spasm K22.4 Active Problem Esophageal spasm K22.4 Active Medications Medication Code System Code Instructions Start Date End Date Status Dosage MetFORMIN HCl ER [facility] [address]-89 500 MG Orally twice a day Dec 22, 2015 2 tablets Zofran [facility] [address]-21 8 MG Orally 3 times a day Dec 08, 2015 1 tablet Lovastatin [facility] [address]-02 40 MG Once a day Mar 31, 2014 1 tablet with a meal Lantus SoloStar [facility] 18137342842 100 UNIT/ML Subcutaneous Once a day 47 units Zyrtec Allergy [facility] [address]-99 10 MG Orally Once a day 1 tablet Tylenol [facility] [address]-02 325 MG Orally every 6 hrs 2 tablets as needed Reglan [facility] [address]-02 10 mg Orally 4 times a day Jan 06, 2016 as directed Cozaar [facility] [address]-67 25 MG Orally Once a day May 06, 2015 1 tablet Ankit Contour Test [facility] 0 1 In Vitro 2 times a day May 06, 2015 as directed Protonix [facility] [address]-90 40 mg Orally Once a day 1 tablet Procedures Procedure Coding System Code Date Office Visit, Est Pt., Level 3 CPT-4 40307 Jan 06, 2016 Vital Signs Date/Time: Jan 06, 2016 Cardiac Monitoring Heart Rate 84 bpm Weight 203.6 lbs Height 63 in BMI 36.06 Index Blood Pressure Diastolic 78 mmHg Blood Pressure Systolic 128 mmHg Results No Known Results Summary Purpose eClinicalWorks Submission
--- OUTSIDE RECORDS SUMMARY | 2016-07-01 07:06 | XMS REPORT ---
Author Author CHERRY MARTIN Organization e[employer] Address Unknown Phone Unavailable Care Team Providers Care Senior Mobile Application Developer Name Role Phone CHERRY MARTIN CP Unavailable Allergies No Known Allergies Problems Problem Type Condition Code Onset Dates Condition Status Problem Type 2 diabetes mellitus without complication E11.9 Active Assessment Right upper quadrant pain R10.11 Active Problem Esophageal spasm K22.4 Active Assessment Abdominal pain, unspecified location R10.9 Active Medications No Known Medications Results Name Result Date Reference Range Unit Abnormality Flag Ultrasound : Gallbladder Summary Purpose eClinicalWorks Submission
--- OUTSIDE RECORDS SUMMARY | 2016-07-01 07:06 | XMS REPORT ---
Author Author CHERRY MARTIN [facility] eClinicalWorks Address Unknown Phone Unavailable Care Team Providers Care Roller Skates Assembler Name Role Phone CHERRY MARTIN CP Unavailable Allergies No Known Allergies Problems Problem Type Condition Code Onset Dates Condition Status Problem Type 2 diabetes mellitus without complication E11.9 Active Problem Esophageal spasm K22.4 Active Medications Medication Code System Code Instructions Start Date End Date Status Dosage Protonix [facility] [address]-21 40 mg Orally 2 times a day 1 tablet Results No Known Results Summary Purpose eClinicalWorks Submission
--- OUTSIDE RECORDS SUMMARY | 2016-07-01 07:07 | XMS REPORT ---
Author Author BINH VAUGHN [facility] eClinicalWorks Address Unknown Phone Unavailable Care Team Providers Care Founder And President Name Role Phone BINH VAUGHN CP Unavailable Allergies, Adverse Reactions, Alerts Substance Reaction Event Type Penicillin V Potassium Info Not Available Drug Allergy Problems Problem Type Condition Code Onset Dates Condition Status Assessment Acute laryngopharyngitis J06.0 Active Assessment Acute diarrhea R19.7 Active Problem Type 2 diabetes mellitus without complication E11.9 Active Assessment Acute bacterial sinusitis J01.90 Active Medications Medication Code System Code Instructions Start Date End Date Status Dosage Doxycycline Hyclate [facility] [address]-07 100 MG Orally every 12 hrs Apr 10, 2015 Apr 20, 2015 1 capsule Mucinex [facility] [address]-93 600 MG Orally every 12 hrs 1 tablet as needed Lovastatin [facility] [address]-51 40 mg Mar 31, 2014 take 1 tablet by Oral route with the evening meal 1 time per day voucher 1st fill only Test strips [facility] 0 August 06, 2014 as directed Glucophage [facility] 82769507304 1000 MG TAKE ONE TABLET BY MOUTH TWICE DAILY Lisinopril [facility] [address]-73 5 mg Mar 31, 2014 take 1 tablet by Oral route 1 time per day voucher 1st fill only Tylenol Sinus Congestion/Pain [facility] [address]-48 5-325-200 MG Orally every 4 hrs 2 tablets as needed Naproxen [facility] [address]-13 500 mg May 31, 2014 take 1 tablet ( 500 mg) by oral route 2 times per day with food Acidophilus [facility] 73756-87346 100 MG Orally 2 times a day Apr 10, 2015 Apr 17, 2015 1 tablet Lantus SoloStar [facility] [address]-62 100 UNIT/ML Subcutaneous Once a day September 13, 2014 47 units Procedures Procedure Coding System Code Date Office Visit, Est Pt., Level 3 CPT-4 85384 Apr 10, 2015 STREP A ASSAY W/OPTIC CPT-4 48469 Apr 10, 2015 Vital Signs Date/Time: Apr 10, 2015 Temperature 97.6 F Weight 200.6 lbs Height 63 in BMI 35.53 Index Blood Pressure Diastolic 88 mmHg Blood Pressure Systolic 120 mmHg Cardiac Monitoring Heart Rate 78 bpm Results Name Result Date Reference Range Unit Abnormality Flag STREP A (IN HOUSE) ----STREP A negative [id number] ----Control + [id number] ----Lot # [id number] ----Exp date [id number] Summary Purpose eClinicalWorks Submission
--- OUTSIDE RECORDS SUMMARY | 2016-07-01 07:07 | XMS REPORT ---
Author Author CHERRY MARTIN Organization eClinicalWorks Address Unknown Phone Unavailable Care Team Providers Care It Risk Analyst Name Role Phone CHERRY MARTIN CP Unavailable Allergies No Known Allergies Problems Problem Type Condition Code Onset Dates Condition Status Problem Type 2 diabetes mellitus without complication E11.9 Active Medications Medication Code System Code Instructions Start Date End Date Status Dosage MetFORMIN HCl ER [facility] [address]-48 500 MG Orally twice a day Dec 22, 2015 2 tablets Protonix [facility] [address]-99 40 mg Orally Once a day 1 tablet Results No Known Results Summary Purpose eClinicalWorks Submission
--- OUTSIDE RECORDS SUMMARY | 2016-07-01 07:08 | XMS REPORT | Continuity of Care Document ---
Author Author [facility] of [facility] of [facility] Address Unknown Phone Unavailable Allergies Active Description Code Type Severity Reaction Onset Reported/Identified Relationship to Patient Clinical Status Yes Penicillins Drug Allergy 05/24/2009 Yes Penicillins Drug Allergy N/A N/A 05/24/2009 Yes Penicillins [id number] Drug Allergy Mild N/A 03/10/2016 Medications Problems Date Dx Coded Attending Type Code Diagnosis Diagnosed By 05/24/2009 250.02 DIABETES MELLITUS POORLY CONTROLLED 05/24/2009 272.4 HYPERLIPIDEMIA HYPERLIPOPROTEINEMIAS (Old Classification) 05/24/2009 RIAZ REAL DO 250.02 DIABETES MELLITUS POORLY CONTROLLED 05/24/2009 RIAZ REAL DO 272.4 HYPERLIPIDEMIA HYPERLIPOPROTEINEMIAS (Old Classification) 05/24/2009 250.02 DIABETES MELLITUS POORLY CONTROLLED 05/24/2009 272.4 HYPERLIPIDEMIA HYPERLIPOPROTEINEMIAS (Old Classification) 05/24/2009 250.02 DIABETES MELLITUS POORLY CONTROLLED 05/24/2009 272.4 HYPERLIPIDEMIA HYPERLIPOPROTEINEMIAS (Old Classification) 05/24/2009 250.02 DIABETES MELLITUS POORLY CONTROLLED 05/24/2009 272.4 HYPERLIPIDEMIA HYPERLIPOPROTEINEMIAS (Old Classification) 05/24/2009 250.02 DIABETES MELLITUS POORLY CONTROLLED 05/24/2009 272.4 HYPERLIPIDEMIA HYPERLIPOPROTEINEMIAS (Old Classification) 05/24/2009 250.02 DIABETES MELLITUS POORLY CONTROLLED 05/24/2009 272.4 HYPERLIPIDEMIA HYPERLIPOPROTEINEMIAS (Old Classification) 05/24/2009 250.02 DIABETES MELLITUS POORLY CONTROLLED 05/24/2009 272.4 HYPERLIPIDEMIA HYPERLIPOPROTEINEMIAS (Old Classification) 05/24/2009 CHERRY MARTIN APRN 250.02 DIABETES MELLITUS POORLY CONTROLLED 05/24/2009 CHERRY MARTIN APRN 272.4 HYPERLIPIDEMIA HYPERLIPOPROTEINEMIAS (Old Classification) 05/24/2009 CHERRY MARTIN APRN 250.02 DIABETES MELLITUS POORLY CONTROLLED 05/24/2009 CHERRY MARTIN APRN 272.4 HYPERLIPIDEMIA HYPERLIPOPROTEINEMIAS (Old Classification) 05/24/2009 MARIO SHRESTHAN, CHERRY T 250.02 DIABETES MELLITUS POORLY CONTROLLED 05/24/2009 MARIO WELL LOGGER, CHERRY T 272.4 HYPERLIPIDEMIA HYPERLIPOPROTEINEMIAS (Old Classification) 05/24/2009 MARIO WELL LOGGER, CHERRY T 250.02 DIABETES MELLITUS POORLY CONTROLLED 05/24/2009 MARIO WELL LOGGER, CHERRY T 272.4 HYPERLIPIDEMIA HYPERLIPOPROTEINEMIAS (Old Classification) 05/24/2009 MARIO WELL LOGGER, CHERRY T 250.02 DIABETES MELLITUS POORLY CONTROLLED 05/24/2009 MARIO WELL LOGGER, CHERRY T 272.4 HYPERLIPIDEMIA HYPERLIPOPROTEINEMIAS (Old Classification) 05/24/2009 MARIO WELL LOGGER, CHERRY T 250.02 DIABETES MELLITUS POORLY CONTROLLED 05/24/2009 MARIO WELL LOGGER, CHERRY T 272.4 HYPERLIPIDEMIA HYPERLIPOPROTEINEMIAS (Old Classification) 05/24/2009 MARIO WELL LOGGER, CHERRY T 250.02 DIABETES MELLITUS POORLY CONTROLLED 05/24/2009 MARIO WELL LOGGER, CHERRY T 272.4 HYPERLIPIDEMIA HYPERLIPOPROTEINEMIAS (Old Classification) 06/14/2009 V72.31 Roller 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 Designer Exam, Routine 06/14/2009 RIAZ REAL DO V72.31 Roller Coaster Designer Exam, Routine 06/14/2009 V72.31 Roller Coaster Designer Exam, Routine 06/14/2009 V72.31 Roller Coaster Designer Exam, Routine 06/14/2009 V72.31 Roller Coaster Designer Exam, Routine 06/14/2009 V72.31 Roller Coaster Designer Exam, Routine 06/14/2009 V72.31 Roller Coaster Designer Exam, Routine 06/14/2009 V72.31 Roller Coaster Designer Exam, Routine 06/14/2009 CHERRY MARTIN APRN T V72.31 Roller Coaster Designer Exam, Routine 06/14/2009 CHERRY MARTIN APRN T V72.31 Roller Coaster Designer Exam, Routine 06/14/2009 MARIO SHRESTHAN CHERRY T V72.31 Roller Coaster Designer Exam, Routine 06/14/2009 MARIO CALDERÓN CHERRY T V72.31 Roller Coaster Designer Exam, Routine 06/14/2009 CHERRY MARTIN APRN T V72.31 Roller Coaster Designer Exam, Routine 06/14/2009 CHERRY MARTIN APRN T V72.31 Roller Coaster Designer Exam, Routine 06/14/2009 MARIO CALDERÓN CHERRY T V72.31 Roller Coaster Designer Exam, Routine 07/19/2009 V58.69 taking high-risk medication 07/19/2009 RIAZ REAL DO V58.69 taking high-risk medication 07/19/2009 V58.69 taking high-risk medication 07/19/2009 V58.69 taking high-risk medication 07/19/2009 V58.69 taking high-risk medication 07/19/2009 V58.69 taking high-risk medication 07/19/2009 V58.69 taking high-risk medication 07/19/2009 V58.69 taking high-risk medication 07/19/2009 CHERRY MARTIN APRN V58.69 taking high-risk medication 07/19/2009 CHERRY MARTIN APRN V58.69 taking high-risk medication 07/19/2009 CHERRY MARTIN APRN V58.69 taking high-risk medication 07/19/2009 CHERRY MARTIN APRN V58.69 taking high-risk medication 07/19/2009 CHERRY MARTIN APRN V58.69 taking high-risk medication 07/19/2009 CHERRY MARTIN APRN V58.69 taking high-risk medication 07/19/2009 CHERRY MARTIN APRN V58.69 taking high-risk medication 08/22/2009 250.00 DIABETES MELLITUS 08/22/2009 466.0 Acute Bronchitis 08/22/2009 REAL DOKANDISA K 250.00 DIABETES MELLITUS 08/22/2009 REAL DORIAZ K 466.0 Acute Bronchitis 08/22/2009 250.00 DIABETES MELLITUS 08/22/2009 466.0 Acute Bronchitis 08/22/2009 250.00 DIABETES MELLITUS 08/22/2009 466.0 Acute Bronchitis 08/22/2009 250.00 DIABETES MELLITUS 08/22/2009 466.0 Acute Bronchitis 08/22/2009 250.00 DIABETES MELLITUS 08/22/2009 466.0 Acute Bronchitis 08/22/2009 250.00 DIABETES MELLITUS 08/22/2009 466.0 Acute Bronchitis 08/22/2009 250.00 DIABETES MELLITUS 08/22/2009 466.0 Acute Bronchitis 08/22/2009 CHERRY MARTIN APRN 250.00 DIABETES MELLITUS 08/22/2009 CHERRY MARTIN APRN 466.0 Acute Bronchitis 08/22/2009 CHERRY MARTIN APRN 250.00 DIABETES MELLITUS 08/22/2009 CHERRY MARTIN APRN 466.0 Acute Bronchitis 08/22/2009 CHERRY MARTIN APRN 250.00 DIABETES MELLITUS 08/22/2009 CHERRY MARTIN APRN 466.0 Acute Bronchitis 08/22/2009 CHERRY MARTIN APRN 250.00 DIABETES MELLITUS 08/22/2009 CHERRY MARTIN APRN 466.0 Acute Bronchitis 08/22/2009 CHERRY MARTIN APRN T 250.00 DIABETES MELLITUS 08/22/2009 CHERRY MARTIN APRN 466.0 Acute Bronchitis 08/22/2009 CHERRY MARTIN APRN 250.00 DIABETES MELLITUS 08/22/2009 CHERRY MARTIN APRN 466.0 Acute Bronchitis 08/22/2009 CHERRY MARTIN APRN T 250.00 DIABETES MELLITUS 08/22/2009 CHERRY MARTIN APRN 466.0 Acute Bronchitis 11/28/2009 V03.82 Need For Vaccination Pneumococcal 11/28/2009 V04.81 Vaccines Prophylactic Need Against Influenza 11/28/2009 REAL DO RIAZ K V03.82 Need For Vaccination Pneumococcal 11/28/2009 REAL DO, RIAZ K V04.81 Vaccines Prophylactic Need Against Influenza 11/28/2009 V03.82 Need For Vaccination Pneumococcal 11/28/2009 V04.81 Vaccines Prophylactic Need Against Influenza 11/28/2009 V03.82 Need For Vaccination Pneumococcal 11/28/2009 V04.81 Vaccines Prophylactic Need Against Influenza 11/28/2009 V03.82 Need For Vaccination Pneumococcal 11/28/2009 V04.81 Vaccines Prophylactic Need Against Influenza 11/28/2009 V03.82 Need For Vaccination Pneumococcal 11/28/2009 V04.81 Vaccines Prophylactic Need Against Influenza 11/28/2009 V03.82 Need For Vaccination Pneumococcal 11/28/2009 V04.81 Vaccines Prophylactic Need Against Influenza 11/28/2009 V03.82 Need For Vaccination Pneumococcal 11/28/2009 V04.81 Vaccines Prophylactic Need Against Influenza 11/28/2009 CHERRY MARTIN APRN V03.82 Need For Vaccination Pneumococcal 11/28/2009 CHERRY MARTIN APRN V04.81 Vaccines Prophylactic Need Against Influenza 11/28/2009 CHERRY MARTIN APRN V03.82 Need For Vaccination Pneumococcal 11/28/2009 CHERRY MARTIN APRN V04.81 Vaccines Prophylactic Need Against Influenza 11/28/2009 CHERRY MARTIN APRN V03.82 Need For Vaccination Pneumococcal 11/28/2009 CHERRY MARTIN APRN V04.81 Vaccines Prophylactic Need Against Influenza 11/28/2009 CHERRY MARTIN APRN V03.82 Need For Vaccination Pneumococcal 11/28/2009 CHERRY MARTIN APRN V04.81 Vaccines Prophylactic Need Against Influenza 11/28/2009 MARIO WELL LOGGER, CHERRY T V03.82 Need For Vaccination Pneumococcal 11/28/2009 MARIO SHRESTHAN, CHERRY T V04.81 Vaccines Prophylactic Need Against Influenza 11/28/2009 MARIO CALDERÓN, CHERRY T V03.82 Need For Vaccination Pneumococcal 11/28/2009 MARIO SHRESTHAN, CHERRY T V04.81 Vaccines Prophylactic Need Against Influenza 11/28/2009 MARIO CALDERÓN, CHERRY T V03.82 Need For Vaccination Pneumococcal 11/28/2009 CHERRY MARTIN APRN T V04.81 Vaccines Prophylactic Need Against Influenza 02/20/2010 240.9 GOITER UNSPECIFIED 02/20/2010 782.0 Disturbance Of Skin Sensation 02/20/2010 REAL DO, RIAZ K 240.9 GOITER UNSPECIFIED 02/20/2010 REAL DO, RIAZ K 782.0 Disturbance Of Skin Sensation 02/20/2010 240.9 GOITER UNSPECIFIED 02/20/2010 782.0 Disturbance Of Skin Sensation 02/20/2010 240.9 GOITER UNSPECIFIED 02/20/2010 782.0 Disturbance Of Skin Sensation 02/20/2010 240.9 GOITER UNSPECIFIED 02/20/2010 782.0 Disturbance Of Skin Sensation 02/20/2010 240.9 GOITER UNSPECIFIED 02/20/2010 782.0 Disturbance Of Skin Sensation 02/20/2010 240.9 GOITER UNSPECIFIED 02/20/2010 782.0 Disturbance Of Skin Sensation 02/20/2010 240.9 GOITER UNSPECIFIED 02/20/2010 782.0 Disturbance Of Skin Sensation 02/20/2010 CHERRY MARTIN APRN T 240.9 GOITER UNSPECIFIED 02/20/2010 CHERRY MARTIN APRN T 782.0 Disturbance Of Skin Sensation 02/20/2010 MARIO CALDERÓN CHERRY T 240.9 GOITER UNSPECIFIED 02/20/2010 MARIO CALDERÓN CHERRY T 782.0 Disturbance Of Skin Sensation 02/20/2010 MARIO CALDERÓN CHERRY T 240.9 GOITER UNSPECIFIED 02/20/2010 CHERRY MARTIN APRN T 782.0 Disturbance Of Skin Sensation 02/20/2010 MARIO CALDERÓN CHERRY T 240.9 GOITER UNSPECIFIED 02/20/2010 MARIO CALDERÓN CHERRY T 782.0 Disturbance Of Skin Sensation 02/20/2010 CHERRY MARTIN APRN T 240.9 GOITER UNSPECIFIED 02/20/2010 MARIO WELL LOGGER, CHERRY T 782.0 Disturbance Of Skin Sensation 02/20/2010 MARIO WELL LOGGER, CHERRY T 240.9 GOITER UNSPECIFIED 02/20/2010 MARIO WELL LOGGER, CHERRY T 782.0 Disturbance Of Skin Sensation 02/20/2010 MARIO WELL LOGGER, CHERRY T 240.9 GOITER UNSPECIFIED 02/20/2010 MARIO WELL LOGGER, CHERRY T 782.0 Disturbance Of Skin Sensation 03/31/2010 465.9 Upper Respiratory Infection 03/31/2010 786.2 Cough 03/31/2010 REAL DOKANDISA K 465.9 Upper Respiratory Infection 03/31/2010 REAL DO, RIAZ K 786.2 Cough 03/31/2010 465.9 Upper Respiratory Infection 03/31/2010 786.2 Cough 03/31/2010 465.9 Upper Respiratory Infection 03/31/2010 786.2 Cough 03/31/2010 465.9 Upper Respiratory Infection 03/31/2010 786.2 Cough 03/31/2010 465.9 Upper Respiratory Infection 03/31/2010 786.2 Cough 03/31/2010 465.9 Upper Respiratory Infection 03/31/2010 786.2 Cough 03/31/2010 465.9 Upper Respiratory Infection 03/31/2010 786.2 Cough 03/31/2010 MARIO WELL LOGGER, CHERRY T 465.9 Upper Respiratory Infection 03/31/2010 MARIO WELL LOGGER, CHERRY T 786.2 Cough 03/31/2010 MARIO WELL LOGGER, CHERRY T 465.9 Upper Respiratory Infection 03/31/2010 MARIO WELL LOGGER, CHERRY T 786.2 Cough 03/31/2010 MARIO WELL LOGGER, CHERRY T 465.9 Upper Respiratory Infection 03/31/2010 MARIO WELL LOGGER, CHERRY T 786.2 Cough 03/31/2010 MARIO WELL LOGGER, CHERRY T 465.9 Upper Respiratory Infection 03/31/2010 MARIO WELL LOGGER, CHERRY T 786.2 Cough 03/31/2010 MARIO WELL LOGGER, CHERRY T 465.9 Upper Respiratory Infection 03/31/2010 MARIO WELL LOGGER, CHERRY T 786.2 Cough 03/31/2010 MARIO WELL LOGGER, CHERRY T 465.9 Upper Respiratory Infection 03/31/2010 MARIO WELL LOGGER, CHERRY T 786.2 Cough 03/31/2010 MARIO WELL LOGGER, CHERRY T 465.9 Upper Respiratory Infection 03/31/2010 MARIO WELL LOGGER, CHERRY T 786.2 Cough 04/17/2010 466.0 Bronchitis, Acute 04/17/2010 KANDIS REAL DOA K 466.0 Bronchitis, Acute 04/17/2010 466.0 Bronchitis, Acute 04/17/2010 466.0 Bronchitis, Acute 04/17/2010 466.0 Bronchitis, Acute 04/17/2010 466.0 Bronchitis, Acute 04/17/2010 466.0 Bronchitis, Acute 04/17/2010 466.0 Bronchitis, Acute 04/17/2010 MARIO WELL LOGGER, CHERRY T 466.0 Bronchitis, Acute 04/17/2010 MARIO WELL LOGGER, CHERRY T 466.0 Bronchitis, Acute 04/17/2010 MARIO WELL LOGGER, CHERRY T 466.0 Bronchitis, Acute 04/17/2010 MARIO WELL LOGGER, CHERRY T 466.0 Bronchitis, Acute 04/17/2010 MARIO WELL LOGGER, CHERRY T 466.0 Bronchitis, Acute 04/17/2010 MARIO WELL LOGGER, CHERRY T 466.0 Bronchitis, Acute 04/17/2010 MARIO WELL LOGGER, CHERRY T 466.0 Bronchitis, Acute 04/26/2010 Ot 491.9 04/26/2010 Ot 786.2 09/14/2010 719.45 joint pain, localized in the hip 09/14/2010 RIAZ REAL DO K 719.45 joint pain, localized in the hip 09/14/2010 719.45 joint pain, localized in the hip 09/14/2010 719.45 joint pain, localized in the hip 09/14/2010 719.45 joint pain, localized in the hip 09/14/2010 719.45 joint pain, localized in the hip 09/14/2010 719.45 joint pain, localized in the hip 09/14/2010 719.45 joint pain, localized in the hip 09/14/2010 MARIO WELL LOGGER, CHERRY T 719.45 joint pain, localized in the hip 09/14/2010 MARIO WELL LOGGER, CHERRY T 719.45 joint pain, localized in the hip 09/14/2010 MARIO WELL LOGGER, CHERRY T 719.45 joint pain, localized in the hip 09/14/2010 MARIO WELL LOGGER, CHERRY T 719.45 joint pain, localized in the hip 09/14/2010 MARIO WELL LOGGER, CHERRY T 719.45 JOINT PAIN, LOCALIZED IN THE HIP 09/14/2010 MARIO WELL LOGGER, CHERRY T 719.45 JOINT PAIN, LOCALIZED IN THE HIP 09/14/2010 MARIO WELL LOGGER, CHERRY T 719.45 JOINT PAIN, LOCALIZED IN THE HIP 01/08/2012 250.02 DIABETES II UNCONTROLLED (UNCOMPLICATED) 01/08/2012 V04.81 FLU DX (3 YRS AND ABOVE, IM) 01/08/2012 RIAZ REAL DO 250.02 DIABETES II UNCONTROLLED (UNCOMPLICATED) 01/08/2012 RIAZ REAL DO V04.81 FLU DX (3 YRS AND ABOVE, IM) 01/08/2012 250.02 DIABETES II UNCONTROLLED (UNCOMPLICATED) 01/08/2012 V04.81 FLU DX (3 YRS AND ABOVE, IM) 01/08/2012 250.02 DIABETES II UNCONTROLLED (UNCOMPLICATED) 01/08/2012 V04.81 FLU DX (3 YRS AND ABOVE, IM) 01/08/2012 250.02 DIABETES II UNCONTROLLED (UNCOMPLICATED) 01/08/2012 V04.81 FLU DX (3 YRS AND ABOVE, IM) 01/08/2012 250.02 DIABETES II UNCONTROLLED (UNCOMPLICATED) 01/08/2012 V04.81 FLU DX (3 YRS AND ABOVE, IM) 01/08/2012 250.02 DIABETES II UNCONTROLLED (UNCOMPLICATED) 01/08/2012 V04.81 FLU DX (3 YRS AND ABOVE, IM) 01/08/2012 250.02 DIABETES II UNCONTROLLED (UNCOMPLICATED) 01/08/2012 V04.81 FLU DX (3 YRS AND ABOVE, IM) 01/08/2012 CHERRY MARTIN APRN 250.02 DIABETES II UNCONTROLLED (UNCOMPLICATED) 01/08/2012 CHERRY MARTIN APRN V04.81 FLU DX (3 YRS AND ABOVE, IM) 01/08/2012 CHERRY MARTIN APRN 250.02 DIABETES II UNCONTROLLED (UNCOMPLICATED) 01/08/2012 CHERRY MARTIN APRN V04.81 FLU DX (3 YRS AND ABOVE, IM) 01/08/2012 CHERRY MARTIN APRN 250.02 DIABETES II UNCONTROLLED (UNCOMPLICATED) 01/08/2012 CHERRY MARTIN APRN V04.81 FLU DX (3 YRS AND ABOVE, IM) 01/08/2012 CHERRY MARTIN APRN 250.02 DIABETES II UNCONTROLLED (UNCOMPLICATED) 01/08/2012 CHERRY MARTIN APRN V04.81 FLU DX (3 YRS AND ABOVE, IM) 01/08/2012 CHERRY MARTIN APRN 250.02 DIABETES II UNCONTROLLED (UNCOMPLICATED) 01/08/2012 CHERRY MARTIN APRN V04.81 FLU DX (3 YRS AND ABOVE, IM) 01/08/2012 CHERRY MARTIN APRN 250.02 DIABETES II UNCONTROLLED (UNCOMPLICATED) 01/08/2012 CHERRY MARTIN APRN V04.81 FLU DX (3 YRS AND ABOVE, IM) 01/08/2012 CHERRY MARTIN APRN 250.02 DIABETES II UNCONTROLLED (UNCOMPLICATED) 01/08/2012 CHERRY MARTIN APRN V04.81 FLU DX (3 YRS AND ABOVE, IM) 05/23/2012 466.0 BRONCHITIS, ACUTE 05/23/2012 466.0 BRONCHITIS, ACUTE 05/23/2012 466.0 BRONCHITIS, ACUTE 05/23/2012 466.0 BRONCHITIS, ACUTE 05/23/2012 466.0 BRONCHITIS, ACUTE 05/23/2012 466.0 BRONCHITIS, ACUTE 05/23/2012 CHERRY MARTIN APRN 466.0 BRONCHITIS, ACUTE 05/23/2012 CHERRY MARTIN APRN 466.0 BRONCHITIS, ACUTE 05/23/2012 CHERRY MARTIN APRN 466.0 BRONCHITIS, ACUTE 05/23/2012 CHERRY MARTIN APRN 466.0 BRONCHITIS, ACUTE 05/23/2012 CHERRY MARTIN APRN 466.0 BRONCHITIS, ACUTE 05/23/2012 CHERRY MARTIN APRN 466.0 BRONCHITIS, ACUTE 05/23/2012 CHERRY MARTIN APRN 466.0 BRONCHITIS, ACUTE 06/24/2012 719.46 PAIN IN JOINT INVOLVING LOWER LEG 06/24/2012 719.46 PAIN IN JOINT INVOLVING LOWER LEG 06/24/2012 719.46 PAIN IN JOINT INVOLVING LOWER LEG 06/24/2012 719.46 PAIN IN JOINT INVOLVING LOWER LEG 06/24/2012 719.46 PAIN IN JOINT INVOLVING LOWER LEG 06/24/2012 CHERRY MARTIN APRN 719.46 PAIN IN JOINT INVOLVING LOWER LEG 06/24/2012 CHERRY MARTIN APRN 719.46 PAIN IN JOINT INVOLVING LOWER LEG 06/24/2012 CHERRY MARTIN APRN 719.46 PAIN IN JOINT INVOLVING LOWER LEG 06/24/2012 CHERRY MARTIN APRN 719.46 PAIN IN JOINT INVOLVING LOWER LEG 06/24/2012 CHERRY MARTIN APRN 719.46 PAIN IN JOINT INVOLVING LOWER LEG 06/24/2012 CHERRY MARTIN APRN 719.46 PAIN IN JOINT INVOLVING LOWER LEG 06/24/2012 CHERRY MARTIN APRN 719.46 PAIN IN JOINT INVOLVING LOWER LEG 08/01/2012 461.9 SINUSITIS ACUTE 08/01/2012 461.9 SINUSITIS ACUTE 08/01/2012 461.9 SINUSITIS ACUTE 08/01/2012 CHERRY MARTIN APRN T 461.9 SINUSITIS ACUTE 08/01/2012 MARIO CALDERÓN, CHERRY T 461.9 SINUSITIS ACUTE 08/01/2012 CHERRY MARTIN APRN T 461.9 SINUSITIS ACUTE 08/01/2012 CHERRY MARTIN APRN T 461.9 SINUSITIS ACUTE 08/01/2012 MARIO WELL LOGGERCHERRY Oseguera T 461.9 SINUSITIS ACUTE 08/01/2012 MARIO SHRESTHANCHERRY T 461.9 SINUSITIS ACUTE 08/01/2012 MARIO WELL LOGGERCHERRY Oseguera T 461.9 SINUSITIS ACUTE 04/09/2014 CHERRY OLIVER DO Ot 723.1 04/09/2014 CHERRY OLIVER DO Ot 723.5 04/12/2014 FATIMAH VICK Ot 307.81 04/12/2014 FATIMAH VICK Ot 723.4 04/12/2014 FATIMAH VICK Ot 782.0 04/14/2014 CHERRY MARTIN APRN 723.1 PAIN NECK 04/14/2014 CHERRY MARTIN APRN 723.1 PAIN NECK 08/14/2014 LISS BAGLEY WELL LOGGER Ot 599.0 08/14/2014 LISS BAGLEY APRN Ot 789.06 10/01/2014 FATIMAH VICK Ot 250.00 10/01/2014 FATIMAH VICK Ot 788.1 10/01/2014 FATIMAH VICK Ot 789.09 10/01/2014 FATIMAH VICK Ot V58.69 01/12/2015 LISS BAGLEY WELL LOGGER Ot N39.0 01/12/2015 LISS BAGLEY WELL LOGGER Ot R11.0 01/12/2015 LISS BAGLEY WELL LOGGER Ot R51 07/14/2015 VENTURA JONES, YADIRA Thornton Ot E11.9 TYPE 2 DIABETES MELLITUS WITHOUT COMPLIC 07/14/2015 VENTURA JONES, YADIRA Thornton Ot K59.00 CONSTIPATION, UNSPECIFIED 07/14/2015 VENTURA JONES, YADIRA Thornton Ot N39.0 URINARY TRACT INFECTION, SITE NOT SPECIF 07/14/2015 VENTURA JONES, YADIRA Thornton Ot 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 08/22/2015 LISS BAGLEY WELL LOGGER Ot R10.12 LEFT UPPER QUADRANT PAIN 08/22/2015 LISS BAGLEY WELL LOGGER Ot R11.10 VOMITING, UNSPECIFIED 08/24/2015 LISS BAGLEY WELL LOGGER Ot R10.12 LEFT UPPER QUADRANT PAIN 08/24/2015 LISS BAGLEY WELL LOGGER Ot R11.10 VOMITING, UNSPECIFIED 11/27/2015 FATIMAH VICK L Ot E11.9 TYPE 2 DIABETES MELLITUS WITHOUT COMPLIC 11/27/2015 FATIMAH VICK Ot N39.0 URINARY TRACT INFECTION, SITE NOT SPECIF 11/27/2015 FATIMAH VICK Ot R30.0 DYSURIA 11/27/2015 FATIMAH VICK Ot Z79.4 FDC (CURRENT) USE OF INSULIN 11/29/2015 FATIMAH VICK Ot E11.9 TYPE 2 DIABETES MELLITUS WITHOUT COMPLIC 11/29/2015 FATIMAH VICK Ot N39.0 URINARY TRACT INFECTION, SITE NOT SPECIF 11/29/2015 FATIMAH VICK Ot R30.0 DYSURIA 11/29/2015 FATIMAH VICK Ot Z79.4 FDC (CURRENT) USE OF INSULIN 11/29/2015 FATIMAH VICK Ot E11.9 TYPE 2 DIABETES MELLITUS WITHOUT COMPLIC 11/29/2015 FATIMAH VICK Ot N39.0 URINARY TRACT INFECTION, SITE NOT SPECIF 11/29/2015 FATIMAH VICK Ot R30.0 DYSURIA 11/29/2015 FATIMAH VICK Ot Z79.4 FDC (CURRENT) USE OF INSULIN 11/30/2015 FATIMAH VICK L Ot E11.9 TYPE 2 DIABETES MELLITUS WITHOUT COMPLIC 11/30/2015 FATIMAH VICK Ot N39.0 URINARY TRACT INFECTION, SITE NOT SPECIF 11/30/2015 FATIMAH VICK L Ot R30.0 DYSURIA 11/30/2015 FATIMAH VICK Ot 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 12/13/2015 FATIMAH VICK L Ot E11.9 TYPE 2 DIABETES MELLITUS WITHOUT COMPLIC 12/13/2015 FATMIAH VICK Ot N39.0 URINARY TRACT INFECTION, SITE NOT SPECIF 12/13/2015 FATIMAH VICK Ot R10.84 GENERALIZED ABDOMINAL PAIN 12/13/2015 FATIMAH VICK L Ot R11.0 NAUSEA 12/13/2015 FATIMAH VICK L Ot R14.0 ABDOMINAL DISTENSION (GASEOUS) 12/13/2015 FATIMAH VICK Ot 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 12/14/2015 FATIMAH VICK Ot E11.9 TYPE 2 DIABETES MELLITUS WITHOUT COMPLIC 12/14/2015 FATIMAH VICK Ot N39.0 URINARY TRACT INFECTION, SITE NOT SPECIF 12/14/2015 FATIMAH VICK Ot R10.84 GENERALIZED ABDOMINAL PAIN 12/14/2015 FATIMAH VICK Ot R11.0 NAUSEA 12/14/2015 FATIMAH VICK Ot R14.0 ABDOMINAL DISTENSION (GASEOUS) 12/14/2015 FATIMAH VICK Ot 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 12/19/2015 CHERRY MARTIN DEPUTY JAILER Ot R10.11 RIGHT UPPER QUADRANT PAIN 12/21/2015 CHERRY MARTIN DEPUTY JAILER Ot R10.11 RIGHT UPPER QUADRANT PAIN 12/30/2015 CHERRY MARTIN DEPUTY JAILER Ot R10.11 RIGHT UPPER QUADRANT PAIN 01/26/2016 FATIMAH VICK Ot E11.9 TYPE 2 DIABETES MELLITUS WITHOUT COMPLIC 01/26/2016 FATIMAH VICK Ot N39.0 URINARY TRACT INFECTION, SITE NOT SPECIF 01/26/2016 FATIMAH VICK Ot R10.84 GENERALIZED ABDOMINAL PAIN 01/26/2016 FATIMAH VICK Ot R11.0 NAUSEA 01/26/2016 FATIMAH VICK L Ot R14.0 ABDOMINAL DISTENSION (GASEOUS) 01/26/2016 FATIMAH VICK Ot Z79.4 FDC (CURRENT) USE OF INSULIN 02/16/2016 CHERRY MARTIN DEPUTY JAILER Ot R10.11 RIGHT UPPER QUADRANT PAIN 02/16/2016 CHERRY MARTIN DEPUTY JAILER Ot R10.11 RIGHT UPPER QUADRANT PAIN 02/17/2016 ADRIENNE BRITTON DO Ot K21.9 GASTRO-ESOPHAGEAL REFLUX DISEASE WITHOUT 02/17/2016 ADRIENNE BRITTON DO Ot Z01.818 ENCOUNTER FOR OTHER PREPROCEDURAL EXAMIN 02/22/2016 BRITTON DO, ADRIENNE D Ot E11.9 TYPE 2 DIABETES MELLITUS WITHOUT COMPLIC 02/22/2016 BRITTON DO, ADRIENNE D Ot K29.70 GASTRITIS, UNSPECIFIED, WITHOUT BLEEDING 02/22/2016 BRITTON DO, ADRIENNE D Ot K44.9 DIAPHRAGMATIC HERNIA WITHOUT OBSTRUCTION 02/22/2016 BRITTON DO, ADRIENNE D Ot Z79.84 [facility] (CURRENT) USE OF ORAL HYPOGLYC 03/03/2016 ELSY DO, NOEL K Ot E11.9 TYPE 2 DIABETES MELLITUS WITHOUT COMPLIC 03/03/2016 ELSY DO, NOEL K Ot J02.9 ACUTE PHARYNGITIS, UNSPECIFIED 03/03/2016 ELSY DO, NOEL K Ot R05 COUGH 03/03/2016 ELSY DO, NOEL K Ot 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 03/03/2016 ELSY DO, NOEL K Ot 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 03/06/2016 ELSY DO, NOEL K Ot E11.9 TYPE 2 DIABETES MELLITUS WITHOUT COMPLIC 03/06/2016 ELSY DO, NOEL K Ot J02.9 ACUTE PHARYNGITIS, UNSPECIFIED 03/06/2016 ELSY DO, NOEL K Ot R05 COUGH 03/06/2016 ELSY DO, NOEL K Ot Z79.4 [facility] (CURRENT) USE OF INSULIN 03/06/2016 ELSY DO, NOEL K Ot Z79.84 [facility] (CURRENT) USE OF ORAL HYPOGLYC 03/08/2016 BRITTON DO, ADRIENNE D Ot E11.9 TYPE 2 DIABETES MELLITUS WITHOUT COMPLIC 03/08/2016 BRITTON DO, ADRIENNE D Ot K29.70 GASTRITIS, UNSPECIFIED, WITHOUT BLEEDING 03/08/2016 BRITTON DO, ADRIENNE D Ot K44.9 DIAPHRAGMATIC HERNIA WITHOUT OBSTRUCTION 03/08/2016 BRITTON DO, ADRIENNE D Ot Z79.84 [facility] (CURRENT) USE OF ORAL HYPOGLYC 03/10/2016 LISS BAGLEY APRN Ot E11.9 TYPE 2 DIABETES MELLITUS WITHOUT COMPLIC 03/10/2016 LISS BAGLEY WELL LOGGER Ot I10 ESSENTIAL (PRIMARY) HYPERTENSION 03/10/2016 LISS BAGLEY APRN Ot J40 BRONCHITIS, NOT SPECIFIED ACUTE OR CH 03/10/2016 LISS BAGLEY WELL LOGGER Ot R05 COUGH 03/10/2016 LISS BAGLEY WELL LOGGER Ot 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 03/10/2016 LISS BAGLEY WELL LOGGER Ot Z79.84 [facility] (CURRENT) USE OF ORAL HYPOGLYC 03/10/2016 LISS BAGLEY WELL LOGGER Ot 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 03/13/2016 BRITTON DOADRIENNE D Ot E11.9 TYPE 2 DIABETES MELLITUS WITHOUT COMPLIC 03/13/2016 BRITTON DODIATT D Ot K29.70 GASTRITIS, UNSPECIFIED, WITHOUT BLEEDING 03/13/2016 ADRIENNE BRITTON DO D Ot K44.9 DIAPHRAGMATIC HERNIA WITHOUT OBSTRUCTION 03/13/2016 ADRIENNE BRITTON DO Ot 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 03/14/2016 LISS BAGLEY APRN Ot E11.9 TYPE 2 DIABETES MELLITUS WITHOUT COMPLIC 03/14/2016 LISS BAGLEY WELL LOGGER Ot I10 ESSENTIAL (PRIMARY) HYPERTENSION 03/14/2016 LISS BAGLEY APRN Ot J40 BRONCHITIS, NOT SPECIFIED ACUTE OR CH 03/14/2016 LISS BAGLEY APRN Ot R05 COUGH 03/14/2016 LISS BAGLEY APRN Ot Z79.4 [facility] (CURRENT) USE OF INSULIN 03/14/2016 LISS BAGLEY APRN Ot 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 04/05/2016 WILEY AMBRIZ MD Ot Z79.899 OTHER [facility] (CURRENT) DRUG THERAPY 04/05/2016 WILEY AMBRIZ MD Ot E11.9 TYPE 2 DIABETES MELLITUS WITHOUT COMPLIC 04/05/2016 WILEY AMBRIZ MD Ot J40 BRONCHITIS, NOT SPECIFIED ACUTE OR CH 04/05/2016 WILEY AMBRIZ MD Ot K44.9 DIAPHRAGMATIC HERNIA WITHOUT OBSTRUCTION 04/05/2016 WILEY AMBRIZ MD Ot R10.10 UPPER ABDOMINAL PAIN, UNSPECIFIED 04/05/2016 WILEY AMBRIZ MD Ot R10.13 EPIGASTRIC PAIN 04/05/2016 WILEY AMBRIZ MD Ot 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 04/05/2016 WILEY AMBRIZ MD Ot 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 04/05/2016 WILEY AMBRIZ MD Ot Z79.899 OTHER [facility] (CURRENT) DRUG THERAPY 04/16/2016 LISS BAGLEY APRN Ot E11.9 TYPE 2 DIABETES MELLITUS WITHOUT COMPLIC 04/16/2016 LISS BAGLEY APRN Ot J40 BRONCHITIS, NOT SPECIFIED ACUTE OR CH 04/16/2016 LISS BAGLEY WELL LOGGER Ot J45.909 UNSPECIFIED ASTHMA, UNCOMPLICATED 04/16/2016 LISS BAGLEY WELL LOGGER Ot 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 04/16/2016 LISS BAGLEY WELL LOGGER Ot Z79.899 OTHER [facility] (CURRENT) DRUG THERAPY 04/17/2016 LISS BAGLEY APRN Ot E11.9 TYPE 2 DIABETES MELLITUS WITHOUT COMPLIC 04/17/2016 LISS BAGLEY APRN Ot J40 BRONCHITIS, NOT SPECIFIED ACUTE OR CH 04/17/2016 LISS BAGLEY WELL LOGGER Ot J45.909 UNSPECIFIED ASTHMA, UNCOMPLICATED 04/17/2016 LISS BAGLEY WELL LOGGER Ot Z79.84 [facility] (CURRENT) USE OF ORAL HYPOGLYC 04/17/2016 LISS BAGLEY APRN Ot Z79.899 OTHER [facility] (CURRENT) DRUG THERAPY 04/23/2016 WILEY AMBRIZ MD Ot E11.65 TYPE 2 DIABETES MELLITUS WITH HYPERGLYCE 04/23/2016 WILEY AMBRIZ MD Ot K44.9 DIAPHRAGMATIC HERNIA WITHOUT OBSTRUCTION 04/23/2016 WILEY AMBRIZ MD Ot R10.13 EPIGASTRIC PAIN 04/23/2016 WILEY AMBRIZ MD Ot R11.2 NAUSEA WITH VOMITING, UNSPECIFIED 04/23/2016 WIELY AMBRIZ MD Ot 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 04/23/2016 WILEY AMBRIZ MD Ot Z79.84 [facility] (CURRENT) USE OF ORAL HYPOGLYC 04/23/2016 WILEY AMBRIZ MD Ot Z79.899 OTHER [facility] (CURRENT) DRUG THERAPY 04/23/2016 WILEY AMBRIZ MD, Ot E11.65 TYPE 2 DIABETES MELLITUS WITH HYPERGLYCE 04/23/2016 WILEY AMBRIZ MD Ot K44.9 DIAPHRAGMATIC HERNIA WITHOUT OBSTRUCTION 04/23/2016 WILEY AMBRIZ MD Ot R10.13 EPIGASTRIC PAIN 04/23/2016 WILEY AMBRIZ MD Ot R11.2 NAUSEA WITH VOMITING, UNSPECIFIED 04/23/2016 WILEY AMBRIZ MD Ot Z79.4 [facility] (CURRENT) USE OF INSULIN 04/23/2016 WILEY AMBRIZ MD Ot 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 04/23/2016 WILEY AMBRIZ MD Ot 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 04/27/2016 WILEY AMBRIZ MD Ot E11.65 TYPE 2 DIABETES MELLITUS WITH HYPERGLYCE 04/27/2016 WILEY AMBRIZ MD Ot K44.9 DIAPHRAGMATIC HERNIA WITHOUT OBSTRUCTION 04/27/2016 WILEY AMBRIZ MD Ot R10.13 EPIGASTRIC PAIN 04/27/2016 WILEY AMBRIZ MD Ot R11.2 NAUSEA WITH VOMITING, UNSPECIFIED 04/27/2016 WILEY AMBRIZ MD Ot Z79.4 [facility] (CURRENT) USE OF INSULIN 04/27/2016 WILEY AMBRIZ MD Ot 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 04/27/2016 WILEY AMBRIZ MD Ot Z79.899 OTHER [facility] (CURRENT) DRUG THERAPY 05/24/2016 KRISTATYRONE CUELLARINE Sridevi WELL LOGGER Ot J45.909 UNSPECIFIED ASTHMA, UNCOMPLICATED 05/24/2016 KRISTA, CASSANDRA E WELL LOGGER Ot R05 COUGH 05/24/2016 KRISTA, CASSANDRA E WELL LOGGER Ot R06.00 DYSPNEA, UNSPECIFIED 05/24/2016 KRISTATYRONECASSANDRA E WELL LOGGER Ot J45.909 UNSPECIFIED ASTHMA, UNCOMPLICATED 05/24/2016 KRISTA CASSANDRA E WELL LOGGER Ot R05 COUGH 05/24/2016 KRISTA, CASSANDRA E WELL LOGGER Ot R06.00 DYSPNEA, UNSPECIFIED 06/04/2016 KRISTA CASSANDRA E WELL LOGGER Ot J45.909 UNSPECIFIED ASTHMA, UNCOMPLICATED 06/04/2016 KRISTA CASSANDRA E WELL LOGGER Ot R05 COUGH 06/04/2016 KRISTA, CASSANDRA E WELL LOGGER Ot R06.00 DYSPNEA, UNSPECIFIED 06/09/2016 VALERIE CAMPOVERDE MD Ot E11.9 TYPE 2 DIABETES MELLITUS WITHOUT COMPLIC 06/09/2016 VALERIE CAMPOVERDE MD Ot J45.909 UNSPECIFIED ASTHMA, UNCOMPLICATED 06/09/2016 VALERIE CAMPOVERDE MD Ot K44.9 DIAPHRAGMATIC HERNIA WITHOUT OBSTRUCTION 06/09/2016 VALERIE CAMPOVERDE MD Ot K56.7 ILEUS, UNSPECIFIED 06/09/2016 VALERIE CAMPOVERDE MD Ot R10.13 EPIGASTRIC PAIN 06/09/2016 VALERIE CAMPOVERDE MD Ot R11.2 NAUSEA WITH VOMITING, UNSPECIFIED 06/09/2016 VALERIE CAMPOVERDE MD Ot 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 06/09/2016 VALERIE CAMPOVERDE MD Ot E11.9 TYPE 2 DIABETES MELLITUS WITHOUT COMPLIC 06/09/2016 VALERIE CAMPOVERDE MD Ot J45.909 UNSPECIFIED ASTHMA, UNCOMPLICATED 06/09/2016 VALERIE CAMPOVERDE MD Ot K44.9 DIAPHRAGMATIC HERNIA WITHOUT OBSTRUCTION 06/09/2016 VALERIE CAMPOVERDE MD Ot K56.7 ILEUS, UNSPECIFIED 06/09/2016 VALERIE CAMPOVERDE MD Ot R10.13 EPIGASTRIC PAIN 06/09/2016 VALERIE CAMPOVERDE MD Ot R11.2 NAUSEA WITH VOMITING, UNSPECIFIED 06/09/2016 VALERIE CAMPOVERDE MD Ot Z79.4 [facility] (CURRENT) USE OF INSULIN Procedures Code Description [place] [address] A1C (IN-HOUSE) JENNA ORELLANA BRANDIE Kal Peterson 07/07/2012 58770 XRAY KNEE LEFT, 1 OR 2 VIEWS 09/02/2012 17326 ROUTINE VENIPUNCTURE 11/21/2012 51733 TSH 11/21/2012 65025 A1C (IN-HOUSE) 07482 MICRO ALBUMIN-IN HOUSE 11/21/2012 48584 MICROALBUMIN 96265 CBC 11/21/2012 97375 CMP 11/21/2012 01377 LIPID PANEL 11/21 [id number] GFR CALC (RESULT ONLY) 11/21/2012 98723 A1C (IN-HOUSE) 63577 ROUTINE VENIPUNCTURE 01/22/2014 39373 CMP 01/22/2014 88000 LIPID PANEL 01/22 44013 TSH 01/22/2014 74681 CBC 01/22/2014 98239 A1C (IN-HOUSE) 78866 THERAPUTIC INJ SQ/IM 05/31/2014 J1885 TORADOL INJ 05/31 02985 MICRO ALBUMIN-IN HOUSE 05/31/2014 94500 MICROALBUMIN 37808 XRAY CERVICAL SPINE, 2 OR 3 VIEWS 07/02/2014 Results Test Result Range Complete urinalysis with reflex to culture - 11/27/15 22:06 Urine color determination YELLOW NRG Urine clarity determination CLEAR NRG Urine pH measurement by test strip 6 5- 9 Specific gravity of urine by test strip 1.020 1.016-1.022 Urine protein assay by test strip, semi-quantitative 1+ NEGATIVE Urine glucose detection by automated test strip 3+ NEGATIVE Erythrocytes detection in urine sediment by light microscopy NEGATIVE NEGATIVE Urine ketones detection by automated test strip NEGATIVE NEGATIVE Urine nitrite detection by test strip NEGATIVE NEGATIVE Urine total bilirubin detection by test strip NEGATIVE NEGATIVE Urine urobilinogen measurement by automated test strip (mass/volume) NORMAL NORMAL Urine leukocyte esterase detection by dipstick 3+ NEGATIVE Automated urine sediment erythrocyte count by microscopy (number/high power field) NONE NRG Automated urine sediment leukocyte count by microscopy (number/high power field ) [HPF] NRG Bacteria detection in urine sediment by light microscopy TRACE NRG Squamous epithelial cells detection in urine sediment by light microscopy 5-10 NRG Crystals detection in urine sediment by light microscopy NONE NRG Casts detection in urine sediment by light microscopy NONE NRG Mucus detection in urine sediment by light microscopy NEGATIVE NRG Complete urinalysis with reflex to culture YES NRG Bacterial urine culture - 11/27/15 22:06 Bacterial urine culture [id number] NRG COLONY COUNT 10,000/ML - 100,000/ML NRG FTX;REPORTABLE SEE COMMENT NRG URINE CULTURE RESULTS >100,000/ML NRG Bacterial susceptibility panel - 11/27/15 22:06 Oxacillin susceptibility test by minimum inhibitory concentration <= NRG Gentamicin susceptibility test by minimum inhibitory concentration <= NRG Trimethoprim/sulfamethoxazole susceptibility test by minimum inhibitoryconcentration <= NRG Vancomycin susceptibility test by minimum inhibitory concentration 1 NRG Levofloxacin susceptibility test by minimum inhibitory concentration <= NRG Rifampin susceptibility test by minimum inhibitory concentration <= NRG Tetracycline susceptibility test by minimum inhibitory concentration <= NRG Nitrofurantoin susceptibility test by minimum inhibitory concentration 32 NRG Complete blood count (CBC) with automated white blood cell (WBC) differential - 12/13/15 20:57 Blood leukocytes automated count (number/volume) 7.1 10*3/ uL 4.3-11.0 Blood erythrocytes automated count (number/volume) 3.89 10*6 /uL 4.35-5.85 Venous blood hemoglobin measurement (mass/volume) 11.2 g/dL 11.5-16.0 Blood hematocrit (volume fraction) 34 % 35-52 Automated erythrocyte mean corpuscular volume 87 [foz_us] 80-99 Automated erythrocyte mean corpuscular hemoglobin (mass per erythrocyte) 29 pg 25-34 Automated erythrocyte mean corpuscular hemoglobin concentration measurement ( mass/volume) 33 g/dL 32-36 Automated erythrocyte distribution width ratio 13.8 % 10.0-14.5 Automated blood platelet count (count/volume) 415 10*3/uL 130-400 Automated blood platelet mean volume measurement 9.6 [foz_us ] 7.4-10.4 Automated blood neutrophils/100 leukocytes 52 % 42-75 Automated blood lymphocytes/100 leukocytes 41 % 12-44 Blood monocytes/100 leukocytes 6 % 0-12 Automated blood eosinophils/100 leukocytes 2 % 0-10 Automated blood basophils/100 leukocytes 1 % 0-10 Blood neutrophils automated count (number/volume) 3.7 10*3 1.8-7.8 Blood lymphocytes automated count (number/volume) 2.9 10*3 1.0-4.0 Blood monocytes automated count (number/volume) 0.4 10*3 0.0-1.0 Automated eosinophil count 0.1 10*3/uL 0.0-0.3 Automated blood basophil count (count/volume) 0.0 10*3/uL 0.0-0.1 Comprehensive metabolic panel - 12/13/15 20:57 Serum or plasma sodium measurement (moles/volume) 136 mmol/ L 135-145 Serum or plasma potassium measurement (moles/volume) 3.9 mmol/L 3.6-5.0 Serum or plasma chloride measurement (moles/volume) 107 mmol /L 98-107 Carbon dioxide 17 mmol/L 21-32 Serum or plasma anion gap determination (moles/volume) 12 mmol/L 5-14 Serum or plasma urea nitrogen measurement (mass/volume) 13 mg/dL 7-18 Serum or plasma creatinine measurement (mass/volume) 0.79 mg /dL 0.60-1.30 Serum or plasma urea nitrogen/creatinine mass ratio 16 NRG Serum or plasma creatinine measurement with calculation of estimated glomerular filtration rate > NRG Serum or plasma glucose measurement (mass/volume) 185 mg/dL 70-105 Serum or plasma calcium measurement (mass/volume) 9.1 mg/dL 8.5-10.1 Serum or plasma total bilirubin measurement (mass/volume) 0.2 mg/dL 0.1-1.0 Serum or plasma alkaline phosphatase measurement (enzymatic activity/volume) 57 U/L 40-136 Serum or plasma aspartate aminotransferase measurement (enzymatic activity/ volume) 16 U/L 5-34 Serum or plasma alanine aminotransferase measurement (enzymatic activity/volume ) 24 U/L 0-55 Serum or plasma protein measurement (mass/volume) 7.2 g/dL 6.4-8.2 Serum or plasma albumin measurement (mass/volume) 4.0 g/dL 3.2-4.5 Lipase - 12/13/15 20:57 Lipase 44 U/L 8-78 Complete urinalysis with reflex to culture - 12/13/15 21:50 Urine color determination YELLOW NRG Urine clarity determination SLIGHTLY CLOUDY NRG Urine pH measurement by test strip 5 5- 9 Specific gravity of urine by test strip 1.025 1.016-1.022 Urine protein assay by test strip, semi-quantitative 2+ NEGATIVE Urine glucose detection by automated test strip 4+ NEGATIVE Erythrocytes detection in urine sediment by light microscopy 4+ NEGATIVE Urine ketones detection by automated test strip 1+ NEGATIVE Urine nitrite detection by test strip NEGATIVE NEGATIVE Urine total bilirubin detection by test strip NEGATIVE NEGATIVE Urine urobilinogen measurement by automated test strip (mass/volume) 1 mg/dL NORMAL Urine leukocyte esterase detection by dipstick 3+ NEGATIVE Automated urine sediment erythrocyte count by microscopy (number/high power field) [HPF] NRG Automated urine sediment leukocyte count by microscopy (number/high power field ) [HPF] NRG Bacteria detection in urine sediment by light microscopy MODERATE NRG Squamous epithelial cells detection in urine sediment by light microscopy 2-5 NRG Crystals detection in urine sediment by light microscopy NONE NRG Casts detection in urine sediment by light microscopy NONE NRG Mucus detection in urine sediment by light microscopy NEGATIVE NRG Complete urinalysis with reflex to culture YES NRG Bacterial urine culture - 12/13/15 21:50 Bacterial urine culture [id number] NRG COLONY COUNT >100,000/ML NRG MRSA AGAR Screening test for MRSA is NEGATIVE (Final to follow) NRG FTX;REPORTABLE SENSITIVITY REPORTED AT 0821, 16 NRG URINE CULTURE RESULTS PLUS NRG Bacterial susceptibility panel - 12/13/15 21:50 Oxacillin susceptibility test by minimum inhibitory concentration <= NRG Gentamicin susceptibility test by minimum inhibitory concentration <= NRG Trimethoprim/sulfamethoxazole susceptibility test by minimum inhibitoryconcentration <= NRG Vancomycin susceptibility test by minimum inhibitory concentration <= NRG Levofloxacin susceptibility test by minimum inhibitory concentration <= NRG Rifampin susceptibility test by minimum inhibitory concentration <= NRG Tetracycline susceptibility test by minimum inhibitory concentration <= NRG Capillary blood glucose measurement by glucometer (mass/volume) - 02/21/16 12: 37 Capillary blood glucose measurement by glucometer (mass/volume) 181 mg/dL 70-110 Complete blood count (CBC) with automated white blood cell (WBC) differential - 04/05/16 01:10 Blood leukocytes automated count (number/volume) 7.1 10*3/ uL 4.3-11.0 Blood erythrocytes automated count (number/volume) 4.01 10*6 /uL 4.35-5.85 Venous blood hemoglobin measurement (mass/volume) 10.7 g/dL 11.5-16.0 Blood hematocrit (volume fraction) 33 % 35-52 Automated erythrocyte mean corpuscular volume 83 [foz_us] 80-99 Automated erythrocyte mean corpuscular hemoglobin (mass per erythrocyte) 27 pg 25-34 Automated erythrocyte mean corpuscular hemoglobin concentration measurement ( mass/volume) 32 g/dL 32-36 Automated erythrocyte distribution width ratio 15.3 % 10.0-14.5 Automated blood platelet count (count/volume) 432 10*3/uL 130-400 Automated blood platelet mean volume measurement 9.3 [foz_us ] 7.4-10.4 Automated blood neutrophils/100 leukocytes 53 % 42-75 Automated blood lymphocytes/100 leukocytes 38 % 12-44 Blood monocytes/100 leukocytes 8 % 0-12 Automated blood eosinophils/100 leukocytes 1 % 0-10 Automated blood basophils/100 leukocytes 1 % 0-10 Blood neutrophils automated count (number/volume) 3.8 10*3 1.8-7.8 Blood lymphocytes automated count (number/volume) 2.7 10*3 1.0-4.0 Blood monocytes automated count (number/volume) 0.6 10*3 0.0-1.0 Automated eosinophil count 0.1 10*3/uL 0.0-0.3 Automated blood basophil count (count/volume) 0.0 10*3/uL 0.0-0.1 Comprehensive metabolic panel - 04/05/16 01:10 Serum or plasma sodium measurement (moles/volume) 140 mmol/ L 135-145 Serum or plasma potassium measurement (moles/volume) 3.2 mmol/L 3.6-5.0 Serum or plasma chloride measurement (moles/volume) 108 mmol /L 98-107 Carbon dioxide 22 mmol/L 21-32 Serum or plasma anion gap determination (moles/volume) 10 mmol/L 5-14 Serum or plasma urea nitrogen measurement (mass/volume) 9 mg /dL 7-18 Serum or plasma creatinine measurement (mass/volume) 0.73 mg /dL 0.60-1.30 Serum or plasma urea nitrogen/creatinine mass ratio 12 NRG Serum or plasma creatinine measurement with calculation of estimated glomerular filtration rate > NRG Serum or plasma glucose measurement (mass/volume) 147 mg/dL 70-105 Serum or plasma calcium measurement (mass/volume) 8.7 mg/dL 8.5-10.1 Serum or plasma total bilirubin measurement (mass/volume) 0.2 mg/dL 0.1-1.0 Serum or plasma alkaline phosphatase measurement (enzymatic activity/volume) 55 U/L 40-136 Serum or plasma aspartate aminotransferase measurement (enzymatic activity/ volume) 22 U/L 5-34 Serum or plasma alanine aminotransferase measurement (enzymatic activity/volume ) 24 U/L 0-55 Serum or plasma protein measurement (mass/volume) 6.9 g/dL 6.4-8.2 Serum or plasma albumin measurement (mass/volume) 3.9 g/dL 3.2-4.5 Serum or plasma amylase measurement (enzymatic activity/volume) - 04/05/16 01: 10 Serum or plasma amylase measurement (enzymatic activity/volume) 33 U/L 25-125 Lipase - 04/05/16 01:10 Lipase 32 U/L 8-78 Influenza virus A and B antigen detection - 04/16/16 21:19 FLU RESULT NEGATIVE FOR INFLUENZA A AND B ANTIGENS BY [facility] Complete blood count (CBC) with automated white blood cell (WBC) differential - 04/22/16 20:39 Blood leukocytes automated count (number/volume) 13.2 10*3/ uL 4.3-11.0 Blood erythrocytes automated count (number/volume) 4.17 10*6 /uL 4.35-5.85 Venous blood hemoglobin measurement (mass/volume) 10.9 g/dL 11.5-16.0 Blood hematocrit (volume fraction) 33 % 35-52 Automated erythrocyte mean corpuscular volume 79 [foz_us] 80-99 Automated erythrocyte mean corpuscular hemoglobin (mass per erythrocyte) 26 pg 25-34 Automated erythrocyte mean corpuscular hemoglobin concentration measurement ( mass/volume) 33 g/dL 32-36 Automated erythrocyte distribution width ratio 15.3 % 10.0-14.5 Automated blood platelet count (count/volume) 484 10*3/uL 130-400 Automated blood platelet mean volume measurement 10.1 [foz_ us] 7.4-10.4 Automated blood neutrophils/100 leukocytes 86 % 42-75 Automated blood lymphocytes/100 leukocytes 11 % 12-44 Blood monocytes/100 leukocytes 3 % 0-12 Automated blood eosinophils/100 leukocytes 0 % 0-10 Automated blood basophils/100 leukocytes 0 % 0-10 Blood neutrophils automated count (number/volume) 11.4 10*3 1.8-7.8 Blood lymphocytes automated count (number/volume) 1.4 10*3 1.0-4.0 Blood monocytes automated count (number/volume) 0.4 10*3 0.0-1.0 Automated eosinophil count 0.0 10*3/uL 0.0-0.3 Automated blood basophil count (count/volume) 0.0 10*3/uL 0.0-0.1 Blood manual differential performed detection - 04/22/16 20:39 Blood monocytes/100 leukocytes 1 % NRG Manual blood segmented neutrophils/100 leukocytes 83 % NRG Blood band neutrophils/100 leukocytes 1 % NRG Manual blood lymphocytes/100 leukocytes 15 % NRG Manual eosinophils/100 leukocytes in nose 0 % NRG Manual blood basophils/100 leukocytes 0 % NRG Blood anisocytosis detection by light microscopy MODERATE NRG Blood ovalocytes detection by light microscopy SLIGHT NRG Blood toxic granules detection by light microscopy 1+ NRG Blood poikilocytosis detection by light microscopy SLIGHT NRG Blood rouleaux detection by light microscopy SLIGHT NRG Blood hypersegmented neutrophils detection by light microscopy SLIGHT NRG Comprehensive metabolic panel - 04/22/16 20:39 Serum or plasma sodium measurement (moles/volume) 131 mmol/ L 135-145 Serum or plasma potassium measurement (moles/volume) 5.0 mmol/L 3.6-5.0 Serum or plasma chloride measurement (moles/volume) 102 mmol /L 98-107 Carbon dioxide 12 mmol/L 21-32 Serum or plasma anion gap determination (moles/volume) 17 mmol/L 5-14 Serum or plasma urea nitrogen measurement (mass/volume) 17 mg/dL 7-18 Serum or plasma creatinine measurement (mass/volume) 1.38 mg /dL 0.60-1.30 Serum or plasma urea nitrogen/creatinine mass ratio 12 NRG Serum or plasma creatinine measurement with calculation of estimated glomerular filtration rate 41 NRG Serum or plasma glucose measurement (mass/volume) 434 mg/dL 70-105 Serum or plasma calcium measurement (mass/volume) 9.3 mg/dL 8.5-10.1 Serum or plasma total bilirubin measurement (mass/volume) 0.3 mg/dL 0.1-1.0 Serum or plasma alkaline phosphatase measurement (enzymatic activity/volume) 61 U/L 40-136 Serum or plasma aspartate aminotransferase measurement (enzymatic activity/ volume) 26 U/L 5-34 Serum or plasma alanine aminotransferase measurement (enzymatic activity/volume ) 16 U/L 0-55 Serum or plasma protein measurement (mass/volume) 7.6 g/dL 6.4-8.2 Serum or plasma albumin measurement (mass/volume) 3.9 g/dL 3.2-4.5 Magnesium - 04/22/16 20:39 Magnesium 2.0 mg/dL 1.8-2.4 Serum or plasma C reactive protein measurement (mass/volume) - 04/22/16 20:39 Serum or plasma C reactive protein measurement (mass/volume) 0.50 mg/dL 0.00-0.50 Complete urinalysis with reflex to culture - 04/22/16 21:17 Urine color determination YELLOW NRG Urine clarity determination CLEAR NRG Urine pH measurement by test strip 5 5- 9 Specific gravity of urine by test strip 1.015 1.016-1.022 Urine protein assay by test strip, semi-quantitative NEGATIVE NEGATIVE Urine glucose detection by automated test strip 4+ NEGATIVE Erythrocytes detection in urine sediment by light microscopy NEGATIVE NEGATIVE Urine ketones detection by automated test strip 2+ NEGATIVE Urine nitrite detection by test strip NEGATIVE NEGATIVE Urine total bilirubin detection by test strip NEGATIVE NEGATIVE Urine urobilinogen measurement by automated test strip (mass/volume) NORMAL NORMAL Urine leukocyte esterase detection by dipstick 1+ NEGATIVE Automated urine sediment erythrocyte count by microscopy (number/high power field) NONE NRG Automated urine sediment leukocyte count by microscopy (number/high power field ) [HPF] NRG Bacteria detection in urine sediment by light microscopy NEGATIVE NRG Squamous epithelial cells detection in urine sediment by light microscopy 0-2 NRG Crystals detection in urine sediment by light microscopy NONE NRG Casts detection in urine sediment by light microscopy NONE NRG Mucus detection in urine sediment by light microscopy NEGATIVE NRG Complete urinalysis with reflex to culture NO NRG Yeast detection in urine sediment by light microscopy FEW NRG Renal epithelial cells detection in urine sediment by light microscopy NONE NRG Capillary blood glucose measurement by glucometer (mass/volume) - 04/22/16 22: 29 Capillary blood glucose measurement by glucometer (mass/volume) 294 mg/dL 70-110 Complete urinalysis with reflex to culture - 06/07/16 21:22 Urine color determination YELLOW NRG Urine clarity determination SLIGHTLY CLOUDY NRG Urine pH measurement by test strip 6.5 5 -9 Specific gravity of urine by test strip 1.010 1.016-1.022 Urine protein assay by test strip, semi-quantitative NEGATIVE NEGATIVE Urine glucose detection by automated test strip 4+ NEGATIVE Erythrocytes detection in urine sediment by light microscopy NEGATIVE NEGATIVE Urine ketones detection by automated test strip NEGATIVE NEGATIVE Urine nitrite detection by test strip NEGATIVE NEGATIVE Urine total bilirubin detection by test strip NEGATIVE NEGATIVE Urine urobilinogen measurement by automated test strip (mass/volume) NORMAL NORMAL Urine leukocyte esterase detection by dipstick 2+ NEGATIVE Automated urine sediment erythrocyte count by microscopy (number/high power field) RARE NRG Automated urine sediment leukocyte count by microscopy (number/high power field ) [HPF] NRG Bacteria detection in urine sediment by light microscopy TRACE NRG Squamous epithelial cells detection in urine sediment by light microscopy 5-10 NRG Crystals detection in urine sediment by light microscopy NONE NRG Casts detection in urine sediment by light microscopy NONE NRG Mucus detection in urine sediment by light microscopy NEGATIVE NRG Complete urinalysis with reflex to culture NO NRG Complete blood count (CBC) with automated white blood cell (WBC) differential - 06/07/16 21:47 Blood leukocytes automated count (number/volume) 8.8 10*3/ uL 4.3-11.0 Blood erythrocytes automated count (number/volume) 4.05 10*6 /uL 4.35-5.85 Venous blood hemoglobin measurement (mass/volume) 10.2 g/dL 11.5-16.0 Blood hematocrit (volume fraction) 32 % 35-52 Automated erythrocyte mean corpuscular volume 80 [foz_us] 80-99 Automated erythrocyte mean corpuscular hemoglobin (mass per erythrocyte) 25 pg 25-34 Automated erythrocyte mean corpuscular hemoglobin concentration measurement ( mass/volume) 32 g/dL 32-36 Automated erythrocyte distribution width ratio 16.5 % 10.0-14.5 Automated blood platelet count (count/volume) 471 10*3/uL 130-400 Automated blood platelet mean volume measurement 9.3 [foz_us ] 7.4-10.4 Automated blood neutrophils/100 leukocytes 59 % 42-75 Automated blood lymphocytes/100 leukocytes 32 % 12-44 Blood monocytes/100 leukocytes 6 % 0-12 Automated blood eosinophils/100 leukocytes 3 % 0-10 Automated blood basophils/100 leukocytes 0 % 0-10 Blood neutrophils automated count (number/volume) 5.2 10*3 1.8-7.8 Blood lymphocytes automated count (number/volume) 2.8 10*3 1.0-4.0 Blood monocytes automated count (number/volume) 0.5 10*3 0.0-1.0 Automated eosinophil count 0.2 10*3/uL 0.0-0.3 Automated blood basophil count (count/volume) 0.0 10*3/uL 0.0-0.1 Serum or plasma choriogonadotropin ( test) detection - 06/07/16 21:47 Serum or plasma choriogonadotropin ( test) detection NEGATIVE NEGATIVE Comprehensive metabolic panel - 06/07/16 21:47 Serum or plasma sodium measurement (moles/volume) 140 mmol/ L 135-145 Serum or plasma potassium measurement (moles/volume) 3.7 mmol/L 3.6-5.0 Serum or plasma chloride measurement (moles/volume) 107 mmol /L 98-107 Carbon dioxide 24 mmol/L 21-32 Serum or plasma anion gap determination (moles/volume) 9 mmol/L 5-14 Serum or plasma urea nitrogen measurement (mass/volume) 7 mg /dL 7-18 Serum or plasma creatinine measurement (mass/volume) 0.76 mg /dL 0.60-1.30 Serum or plasma urea nitrogen/creatinine mass ratio 9 NRG Serum or plasma creatinine measurement with calculation of estimated glomerular filtration rate > NRG Serum or plasma glucose measurement (mass/volume) 210 mg/dL 70-105 Serum or plasma calcium measurement (mass/volume) 9.1 mg/dL 8.5-10.1 Serum or plasma total bilirubin measurement (mass/volume) 0.3 mg/dL 0.1-1.0 Serum or plasma alkaline phosphatase measurement (enzymatic activity/volume) 65 U/L 40-136 Serum or plasma aspartate aminotransferase measurement (enzymatic activity/ volume) 17 U/L 5-34 Serum or plasma alanine aminotransferase measurement (enzymatic activity/volume ) 19 U/L 0-55 Serum or plasma protein measurement (mass/volume) 7.0 g/dL 6.4-8.2 Serum or plasma albumin measurement (mass/volume) 3.8 g/dL 3.2-4.5 Lipase - 06/07/16 21:47 Lipase 27 U/L 8-78 Capillary blood glucose measurement by glucometer (mass/volume) - 06/08/16 05: 09 Capillary blood glucose measurement by glucometer (mass/volume) 113 mg/dL 70-110 Capillary blood glucose measurement by glucometer (mass/volume) - 06/08/16 13: 15 Capillary blood glucose measurement by glucometer (mass/volume) 199 mg/dL 70-110 Capillary blood glucose measurement by glucometer (mass/volume) - 06/08/16 19: 41 Capillary blood glucose measurement by glucometer (mass/volume) 175 mg/dL 70-110 Capillary blood glucose measurement by glucometer (mass/volume) - 06/09/16 00: 29 Capillary blood glucose measurement by glucometer (mass/volume) 149 mg/dL 70-110 Complete blood count (CBC) with automated white blood cell (WBC) differential - 06/09/16 04:30 Blood leukocytes automated count (number/volume) 7.1 10*3/ uL 4.3-11.0 Blood erythrocytes automated count (number/volume) 4.13 10*6 /uL 4.35-5.85 Venous blood hemoglobin measurement (mass/volume) 10.4 g/dL 11.5-16.0 Blood hematocrit (volume fraction) 33 % 35-52 Automated erythrocyte mean corpuscular volume 80 [foz_us] 80-99 Automated erythrocyte mean corpuscular hemoglobin (mass per erythrocyte) 25 pg 25-34 Automated erythrocyte mean corpuscular hemoglobin concentration measurement ( mass/volume) 31 g/dL 32-36 Automated erythrocyte distribution width ratio 16.5 % 10.0-14.5 Automated blood platelet count (count/volume) 459 10*3/uL 130-400 Automated blood platelet mean volume measurement 9.3 [foz_us ] 7.4-10.4 Automated blood neutrophils/100 leukocytes 59 % 42-75 Automated blood lymphocytes/100 leukocytes 31 % 12-44 Blood monocytes/100 leukocytes 7 % 0-12 Automated blood eosinophils/100 leukocytes 3 % 0-10 Automated blood basophils/100 leukocytes 0 % 0-10 Blood neutrophils automated count (number/volume) 4.2 10*3 1.8-7.8 Blood lymphocytes automated count (number/volume) 2.2 10*3 1.0-4.0 Blood monocytes automated count (number/volume) 0.5 10*3 0.0-1.0 Automated eosinophil count 0.2 10*3/uL 0.0-0.3 Automated blood basophil count (count/volume) 0.0 10*3/uL 0.0-0.1 Comprehensive metabolic panel - 06/09/16 04:30 Serum or plasma sodium measurement (moles/volume) 139 mmol/ L 135-145 Serum or plasma potassium measurement (moles/volume) 4.2 mmol/L 3.6-5.0 Serum or plasma chloride measurement (moles/volume) 112 mmol /L 98-107 Carbon dioxide 20 mmol/L 21-32 Serum or plasma anion gap determination (moles/volume) 7 mmol/L 5-14 Serum or plasma urea nitrogen measurement (mass/volume) 3 mg /dL 7-18 Serum or plasma creatinine measurement (mass/volume) 0.62 mg /dL 0.60-1.30 Serum or plasma urea nitrogen/creatinine mass ratio 5 NRG Serum or plasma creatinine measurement with calculation of estimated glomerular filtration rate > NRG Serum or plasma glucose measurement (mass/volume) 160 mg/dL 70-105 Serum or plasma calcium measurement (mass/volume) 8.0 mg/dL 8.5-10.1 Serum or plasma total bilirubin measurement (mass/volume) 0.5 mg/dL 0.1-1.0 Serum or plasma alkaline phosphatase measurement (enzymatic activity/volume) 54 U/L 40-136 Serum or plasma aspartate aminotransferase measurement (enzymatic activity/ volume) 17 U/L 5-34 Serum or plasma alanine aminotransferase measurement (enzymatic activity/volume ) 16 U/L 0-55 Serum or plasma protein measurement (mass/volume) 6.2 g/dL 6.4-8.2 Serum or plasma albumin measurement (mass/volume) 3.2 g/dL 3.2-4.5 Capillary blood glucose measurement by glucometer (mass/volume) - 06/09/16 09: 36 Capillary blood glucose measurement by glucometer (mass/volume) 165 mg/dL 70-110 Capillary blood glucose measurement by glucometer (mass/volume) - 06/09/16 11: 55 Capillary blood glucose measurement by glucometer (mass/volume) 199 mg/dL 70-110 Encounters ACCT No. Visit Date/Time Discharge Status Pt. Type Provider Facility Loc./Unit Complaint [id number] 07/02/2014 09:11:00 07/02/2014 23: 59:59 CLS Outpatient CHERRY MARTIN APRN [id number] 05/31/2014 09:13:00 05/31/2014 23: 59:59 CLS Outpatient CHERRY MARTIN APRN [id number] 03/31/2014 09:55:00 03/31/2014 23: 59:59 CLS Outpatient CHERRY MARTIN APRN [id number] 02/22/2014 16:10:00 02/22/2014 23: 59:59 CLS Outpatient CHERRY MARTIN APRN [id number] 01/22/2014 08:37:00 01/22/2014 23: 59:59 CLS Outpatient CHERRY MARTIN APRN Hillary [id number] 08/24/2013 09:05:00 08/24/2013 23: 59:59 CLS Outpatient CHERRY MARTIN APRN [id number] 07/24/2013 09:45:00 07/24/2013 23: 59:59 CLS Outpatient CHERRY MARTIN APRN [id number] 05/23/2012 08:12:00 05/23/2012 23: 59:59 CLS Outpatient [id number] 01/08/2012 09:40:00 01/08/2012 23: 59:59 CLS Outpatient RIAZ REAL DO Kelsi 2905 01/08/2012 09:40:00 01/08/2012 23:59 :59 CLS Outpatient [id number] 11/21/2012 09:20:00 Document Registration [id number] 09/02/2012 09:01:00 Document Registration [id number] 08/01/2012 09:41:00 Document Registration [id number] 07/04/2012 08:48:00 Document Registration [id number] 06/24/2012 13:23:00 Document Registration
--- OUTSIDE RECORDS SUMMARY | 2016-07-01 07:09 | XMS REPORT ---
Author Author NAI SOLIZ Organization [employer] Address Unknown Phone Unavailable Care Team Providers Care Clinical Operations Leader Name Role Phone NAI SOLIZ CP Unavailable Allergies, Adverse Reactions, Alerts Substance Reaction Event Type Penicillin V Potassium Info Not Available Drug Allergy Problems Problem Type Condition Code Onset Dates Condition Status Assessment Upper respiratory infection 465.9 Active Problem Type 2 diabetes mellitus without complication E11.9 Active Medications Medication Code System Code Instructions Start Date End Date Status Dosage Lisinopril [facility] [address]-39 5 mg Mar 31, 2014 take 1 tablet by Oral route 1 time per day voucher 1st fill only Test strips [facility] 0 August 06, 2014 as directed Azithromycin [facility] [address]-83 250 MG Orally Once a day Nov 18, 2014 Apr 03, 2015 2 tablets on the first day, then 1 tablet daily for 4 days Tessalon Perles [facility] [address]-90 100 MG Orally Three times a day Nov 18, 2014 Apr 12, 2015 1 capsule as needed Lovastatin [facility] [address]-14 40 mg Mar 31, 2014 take 1 tablet by Oral route with the evening meal 1 time per day voucher 1st fill only Naproxen [facility] [address]-41 500 mg May 31, 2014 take 1 tablet ( 500 mg) by oral route 2 times per day with food Lantus SoloStar [facility] [address]-94 100 UNIT/ML Subcutaneous Once a day September 13, 2014 47 units Glucophage [facility] 86169700691 1000 MG TAKE ONE TABLET BY MOUTH TWICE DAILY Procedures Procedure Coding System Code Date Office Visit, Est Pt., Level 3 CPT-4 73391 Mar 29, 2015 Vital Signs Date/Time: Mar 29, 2015 Temperature 98.3 F Weight 199.3 lbs Height 63 in BMI 35.30 Index Blood Pressure Diastolic 82 mmHg Blood Pressure Systolic 128 mmHg Cardiac Monitoring Heart Rate 68 bpm Results No Known Results Summary Purpose [employer] Submission
--- OUTSIDE RECORDS SUMMARY | 2016-07-01 07:09 | XMS REPORT ---
Author Author NAI SOLIZ [facility] [employer] Address Unknown Phone Unavailable Care Team Providers Care Parts Department Manager Name Role Phone NAI SOLIZ Unavailable Allergies, Adverse Reactions, Alerts Substance Reaction Event Type Penicillin V Potassium Info Not Available Drug Allergy Problems Problem Type Condition ICD-9 Code Onset Dates Condition Status Problem Cervicalgia 723.1 Active Problem Pain in joint, lower leg 719.46 Active Problem Diabetes 250.00 Active Problem Diabetes mellitus without mention of complication, type II or unspecified type, uncontrolled 250.02 Active Assessment Upper respiratory infection 465.9 Active Medications Medication Code System Code Instructions Start Date End Date Status Dosage Lisinopril [facility] [address]-41 5 mg Mar 31, 2014 take 1 tablet by Oral route 1 time per day voucher 1st fill only Naproxen [facility] [address]-92 500 mg May 31, 2014 take 1 tablet ( 500 mg) by oral route 2 times per day with food Lantus SoloStar [facility] [address]-24 100 UNIT/ML Subcutaneous Once a day September 13, 2014 47 units Glucophage [facility] 04801259185 1000 MG TAKE ONE TABLET BY MOUTH TWICE DAILY Tesclaus Honeycuttes [facility] [address]-12 100 MG Orally Three times a day Nov 18, 2014 Dec 02, 2014 1 capsule as needed Azithromycin [facility] [address]-81 250 MG Orally Once a day Nov 18, 2014 Nov 23, 2014 2 tablets on the first day, then 1 tablet daily for 4 days Lovastatin [facility] [address]-13 40 mg Mar 31, 2014 take 1 tablet by Oral route with the evening meal 1 time per day voucher 1st fill only Test strips [facility] 0 August 06, 2014 as directed Procedures Procedure Coding System Code Date Office Visit, Est Pt., Level 3 CPT-4 97262 Nov 18, 2014 Vital Signs Date/Time: Nov 18, 2014 Temperature 97.8 F Weight 194.9 lbs Height 63 in BMI 34.52 Index Blood Pressure Diastolic 82 mmHg Blood Pressure Systolic 128 mmHg Cardiac Monitoring Heart Rate 74 bpm Results No Known Results Summary Purpose [employer] Submission
--- OUTSIDE RECORDS SUMMARY | 2016-07-01 07:09 | XMS REPORT ---
Author Author CHERRY MARTIN Organization [employer] Address Unknown Phone Unavailable Care Team Providers Care Casework Manager Name Role Phone CHERRY MARTIN CP Unavailable Allergies No Known Allergies Problems Problem Type Condition Code Onset Dates Condition Status Problem Type 2 diabetes mellitus without complication E11.9 Active Medications No Known Medications Results No Known Results Summary Purpose [employer] Submission
--- OUTSIDE RECORDS SUMMARY | 2016-07-01 07:26 | XMS REPORT | Continuity of Care Document ---
Author Author [facility] Address Unknown Phone Unavailable Allergies Active Description Code Type Severity Reaction Onset Reported/Identified Relationship to Patient Clinical Status Yes Penicillins Drug Allergy 05/24/2009 Yes Penicillins Drug Allergy N/A N/A 05/24/2009 Yes Penicillins [id number] Drug Allergy Mild N/A 03/10/2016 Medications Problems [...] 250.02 DIABETES MELLITUS POORLY CONTROLLED 05/24/2009 MARIO MIN[employer] LEAGUE BASEBALL PLAYER, CHERRY T 272.4 HYPERLIPIDEMIA HYPERLIPOPROTEINEMIAS (Old Classification) 05/24/2009 MARIO MIN[employer] LEAGUE BASEBALL PLAYER, CHERRY T 250.02 DIABETES MELLITUS POORLY CONTROLLED 05/24/2009 MARIO MINOR LEAGUE BASEBALL PLAYER, CHERRY T 272.4 HYPERLIPIDEMIA HYPERLIPOPROTEINEMIAS (Old Classification) 05/24/2009 MARIO MINOR LEAGUE BASEBALL PLAYER, CHERRY T 250.02 DIABETES MELLITUS POORLY CONTROLLED 05/24/2009 MARIO MINOR LEAGUE BASEBALL PLAYER, CHERRY T 272.4 HYPERLIPIDEMIA HYPERLIPOPROTEINEMIAS (Old Classification) 05/24/2009 MARIO MINOR LEAGUE BASEBALL PLAYER, CHERRY T 250.02 DIABETES MELLITUS POORLY CONTROLLED 05/24/2009 MARIO MINOR LEAGUE BASEBALL PLAYER, CHERRY T 272.4 HYPERLIPIDEMIA HYPERLIPOPROTEINEMIAS (Old Classification) 05/24/2009 MARIO MINOR LEAGUE BASEBALL PLAYER, CHERRY T 250.02 DIABETES MELLITUS POORLY CONTROLLED 05/24/2009 MARIO MINOR LEAGUE BASEBALL PLAYER, CHERRY T 272.4 HYPERLIPIDEMIA HYPERLIPOPROTEINEMIAS (Old Classification) 06/14/2009 V72.31 Instrument Maker And Repairer Exam, Routine 06/14/2009 RIAZ REAL DO V72.31 Instrument Maker And Repairer Exam, Routine 06/14/2009 V72.31 Instrument Maker And Repairer Exam, Routine 06/14/2009 V72.31 Instrument Maker And Repairer Exam, Routine 06/14/2009 V72.31 Instrument Maker And Repairer Exam, Routine 06/14/2009 V72.31 Instrument Maker And Repairer Exam, Routine 06/14/2009 V72.31 Instrument Maker And Repairer Exam, Routine 06/14/2009 V72.31 Instrument Maker And Repairer Exam, Routine 06/14/2009 CHERRY MARTIN APRN T V72.31 Instrument Maker And Repairer Exam, Routine 06/14/2009 CHERRY MARTIN APRN T V72.31 Instrument Maker And Repairer Exam, Routine 06/14/2009 MARIO SHRESTHAN CHERRY T V72.31 Instrument Maker And Repairer Exam, Routine 06/14/2009 MARIO CALDERÓN CHERRY T V72.31 Instrument Maker And Repairer Exam, Routine 06/14/2009 CHERRY MARTIN APRN T V72.31 Instrument Maker And Repairer Exam, Routine 06/14/2009 CHERRY MARTIN APRN T V72.31 Instrument Maker And Repairer Exam, Routine 06/14/2009 MARIO CALDERÓN CHERRY T V72.31 Instrument Maker And Repairer Exam, Routine 07/19/2009 V58.69 taking high-risk medication [...] V03.82 Need For Vaccination Pneumococcal 11/28/2009 CHERRY MARTNI APRN V04.81 Vaccines Prophylactic Need Against Influenza [...] Vaccines Prophylactic Need Against Influenza 11/28/2009 [employer]ER, CHERRY T V03.82 Need For Vaccination Pneumococcal [...] APRN T 240.9 GOITER UNSPECIFIED 02/20/2010 MARIO [employer] LE[employer]ALL PLAYER, CHERRY T 782.0 Disturbance Of Skin Sensation 02/20/2010 MARIO [employer] LE[employer] PLAYER, CHERRY T 240.9 GOITER UNSPECIFIED 02/20/2010 MARIO [employer] LEAG[employer] BASEBALL PLAYER, CHERRY T 782.0 Disturbance Of Skin Sensation 02/20/2010 MARIO [employer] LEAGUE BASEBALL PLAYER, CHERRY T 240.9 GOITER UNSPECIFIED 02/20/2010 MARIO [employer] LEAGUE BASEBALL PLAYER, CHERRY T 782.0 Disturbance Of Skin Sensation [...] Respiratory Infection 03/31/2010 786.2 Cough 03/31/2010 MARIO [employer] LE[employer] PLAYER, CHERRY T 465.9 Upper Respiratory Infection 03/31/2010 MARIO [employer] LEAG[employer] B[employer]BALL PLAYER, CHERRY T 786.2 Cough 03/31/2010 MARIO [employer] LEAG[employer] BASEBALL PLAYER, CHERRY T 465.9 Upper Respiratory Infection 03/31/2010 MARIO [employer] LEAG[employer] BASEBALL PLAYER, CHERRY T 786.2 Cough 03/31/2010 MARIO MIN[employer] LEAGUE BASEBALL PLAYER, CHERRY T 465.9 Upper Respiratory Infection 03/31/2010 MARIO [employer] LEAG[employer] BASEBALL PLAYER, CHERRY T 786.2 Cough 03/31/2010 MARIO [employer] LEAG[employer] BASEBALL PLAYER, CHERRY T 465.9 Upper Respiratory Infection 03/31/2010 MARIO [employer] LEAG[employer] BASEBALL PLAYER, CHERRY T 786.2 Cough 03/31/2010 MARIO [employer] LEAG[employer] BASEBALL PLAYER, CHERRY T 465.9 Upper Respiratory Infection 03/31/2010 MARIO [employer] LEAG[employer] BASEBALL PLAYER, CHERRY T 786.2 Cough 03/31/2010 MARIO [employer] LEAG[employer] B[employer]BALL PLAYER, CHERRY T 465.9 Upper Respiratory Infection 03/31/2010 MARIO [employer] LEAG[employer] BASEBALL PLAYER, CHERRY T 786.2 Cough 03/31/2010 MARIO [employer] LEAG[employer] B[employer]BALL PLAYER, CHERRY T 465.9 Upper Respiratory Infection 03/31/2010 MARIO [employer] LE[employer]ER, CHERRY T 786.2 Cough 04/17/2010 466.0 Bronchitis, Acute 04/17/2010 KANDIS REAL DOA K 466.0 Bronchitis, Acute 04/17/2010 466.0 Bronchitis, Acute 04/17/2010 466.0 Bronchitis, Acute 04/17/2010 466.0 Bronchitis, Acute 04/17/2010 466.0 Bronchitis, Acute 04/17/2010 466.0 Bronchitis, Acute 04/17/2010 466.0 Bronchitis, Acute 04/17/2010 MARIO [employer] LEAG[employer]ALL PLAYER, CHERRY T 466.0 Bronchitis, Acute 04/17/2010 MARIO [employer] LEAG[employer] BASEBALL PLAYER, CHERRY T 466.0 Bronchitis, Acute 04/17/2010 MARIO [employer] LEAG[employer] BASEBALL PLAYER, CHERRY T 466.0 Bronchitis, Acute 04/17/2010 MARIO MIN[employer] LEAGUE BASEBALL PLAYER, CHERRY T 466.0 Bronchitis, Acute 04/17/2010 MARIO MIN[employer] LEAG[employer] BASEBALL PLAYER, CHERRY T 466.0 Bronchitis, Acute 04/17/2010 MARIO MIN[employer] LEAGUE BASEBALL PLAYER, CHERRY T 466.0 Bronchitis, Acute 04/17/2010 MARIO [employer] LEAG[employer] BASEBALL PLAYER, CHERRY T 466.0 Bronchitis, Acute 04/26/2010 Ot [...] pain, localized in the hip 09/14/2010 MARIO [employer] LE[employer] PLAYER, CHERRY T 719.45 joint pain, localized in the hip 09/14/2010 MARIO [employer] LEAG[employer] B[employer]ALL PLAYER, CHERRY T 719.45 joint pain, localized in the hip 09/14/2010 MARIO [employer] LEAG[employer]BALL PLAYER, CHERRY T 719.45 joint pain, localized in the hip 09/14/2010 MARIO [employer] LEAG[employer] B[employer]ALL PLAYER, CHERRY T 719.45 joint pain, localized in the hip 09/14/2010 MARIO [employer] LE[employer]ALL PLAYER, CHERRY T 719.45 JOINT PAIN, LOCALIZED IN THE HIP 09/14/2010 MARIO [employer] LEAG[employer] BASEBALL PLAYER, CHERRY T 719.45 JOINT PAIN, LOCALIZED IN THE HIP 09/14/2010 MARIO [employer] LEAG[employer] BASE[employer]ALL PLAYER, CHERRY T 719.45 JOINT PAIN, LOCALIZED IN [...] APRN T 461.9 SINUSITIS ACUTE 08/01/2012 MARIO MINOR LEAGUE BASEBALL PLAYERCHERRY Oseguera T 461.9 SINUSITIS ACUTE 08/01/2012 MARIO SHRESTHANCHERRY T 461.9 SINUSITIS ACUTE 08/01/2012 MARIO MINOR LEAGUE BASEBALL PLAYERCHERRY Oseguera T 461.9 SINUSITIS ACUTE 04/09/2014 CHERRY OLIVER DO Ot 723.1 04/09/2014 CHERRY OLIVER DO Ot 723.5 04/12/2014 FATIMAH VICK Ot 307.81 04/12/2014 FATIMAH VICK Ot 723.4 04/12/2014 FATIMAH VICK Ot 782.0 04/14/2014 CHERRY MARTIN APRN 723.1 PAIN NECK 04/14/2014 CHERRY MARTIN APRN 723.1 PAIN NECK 08/14/2014 LISS BAGLEY MINOR LEAGUE BASEBALL PLAYER Ot 599.0 08/14/2014 LISS BAGLEY APRN Ot 789.06 10/01/2014 FATIMAH VICK Ot 250.00 10/01/2014 FATIMAH VICK Ot 788.1 10/01/2014 FATIMAH VICK Ot 789.09 10/01/2014 FATIMAH VICK Ot V58.69 01/12/2015 LISS BAGLEY MINOR LEAGUE BASEBALL PLAYER Ot N39.0 01/12/2015 LISS BAGELY MINOR LEAGUE BASEBALL PLAYER Ot R11.0 01/12/2015 LISS BAGLEY MINOR LEAGUE BASEBALL PLAYER Ot R51 07/14/2015 VENTURA JONES, YADIRA Thornton Ot E11.9 TYPE 2 DIABETES MELLITUS WITHOUT COMPLIC 07/14/2015 VENTURA JONES, YADIRA Thornton Ot K59.00 CONSTIPATION, UNSPECIFIED 07/14/2015 VENTURA JONES, YADIRA Thornton Ot N39.0 URINARY TRACT INFECTION, SITE NOT SPECIF 07/14/2015 VENTURA JONES, YADIRA Thornton Ot Z79.4 BUTTING SAW OPERATOR (CURRENT) USE OF INSULIN 08/22/2015 LISS BAGLEY MINOR LEAGUE BASEBALL PLAYER Ot R10.12 LEFT UPPER QUADRANT PAIN 08/22/2015 LISS BAGLEY MINOR LEAGUE BASEBALL PLAYER Ot R11.10 VOMITING, UNSPECIFIED 08/24/2015 LISS BAGLEY MINOR LEAGUE BASEBALL PLAYER Ot R10.12 LEFT UPPER QUADRANT PAIN 08/24/2015 LISS BAGLEY MINOR LEAGUE BASEBALL PLAYER Ot R11.10 VOMITING, UNSPECIFIED 11/27/2015 FATIMAH VICK L Ot E11.9 TYPE 2 DIABETES MELLITUS WITHOUT COMPLIC 11/27/2015 FATIMAH VICK Ot N39.0 URINARY TRACT INFECTION, SITE NOT SPECIF 11/27/2015 FATIMAH VICK Ot R30.0 DYSURIA 11/27/2015 FATIMAH VICK Ot Z79.4 [facility] (CURRENT) USE OF INSULIN 11/29/2015 FATIMAH VICK Ot E11.9 TYPE 2 DIABETES MELLITUS WITHOUT COMPLIC 11/29/2015 FATIMAH VICK Ot N39.0 URINARY TRACT INFECTION, SITE NOT SPECIF 11/29/2015 FATIMAH VICK Ot R30.0 DYSURIA 11/29/2015 FATIMAH VICK Ot Z79.4 [facility] (CURRENT) USE OF INSULIN 11/29/2015 FATIMAH VICK Ot E11.9 TYPE 2 DIABETES MELLITUS WITHOUT COMPLIC 11/29/2015 FATIMAH VICK Ot N39.0 URINARY TRACT INFECTION, SITE NOT SPECIF 11/29/2015 FATIMAH VICK Ot R30.0 DYSURIA 11/29/2015 FATIMAH VICK Ot Z79.4 [facility] (CURRENT) USE OF INSULIN 11/30/2015 FATIMAH VICK L Ot E11.9 TYPE 2 DIABETES MELLITUS WITHOUT COMPLIC 11/30/2015 FATIMAH VICK Ot N39.0 URINARY TRACT INFECTION, SITE NOT SPECIF 11/30/2015 FATIMAH VICK L Ot R30.0 DYSURIA 11/30/2015 FATIMAH VICK Ot 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.4 BUTTING SAW OPERATOR (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) USE OF INSULIN 12/13/2015 FATIMAH VICK L Ot E11.9 TYPE 2 DIABETES MELLITUS WITHOUT COMPLIC 12/13/2015 FATIMAH VICK Ot N39.0 URINARY TRACT INFECTION, SITE NOT SPECIF 12/13/2015 FATIMAH VICK Ot R10.84 GENERALIZED ABDOMINAL PAIN 12/13/2015 FATIMAH VICK L Ot R11.0 NAUSEA 12/13/2015 FATIMAH VICK L Ot R14.0 ABDOMINAL DISTENSION (GASEOUS) 12/13/2015 FATIMAH VICK Ot 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.4 BUTTING SAW OPERATOR (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) USE OF INSULIN 12/14/2015 FATIMAH VICK Ot E11.9 TYPE 2 DIABETES MELLITUS WITHOUT COMPLIC 12/14/2015 FATIMAH VICK Ot N39.0 URINARY TRACT INFECTION, SITE NOT SPECIF 12/14/2015 FATIMAH VICK Ot R10.84 GENERALIZED ABDOMINAL PAIN 12/14/2015 FATIMAH VICK Ot R11.0 NAUSEA 12/14/2015 FATIMAH VICK Ot R14.0 ABDOMINAL DISTENSION (GASEOUS) 12/14/2015 FATIMAH VICK Ot Z79.4 BUTTING SAW OPERATOR (CURRENT) USE OF INSULIN 12/19/2015 CHERRY MARTIN SKIN FITTER Ot R10.11 RIGHT UPPER QUADRANT PAIN 12/21/2015 CHERRY MARTIN SKIN FITTER Ot R10.11 RIGHT UPPER QUADRANT PAIN 12/30/2015 CHERRY MARTIN SKIN FITTER Ot R10.11 RIGHT UPPER QUADRANT PAIN 01/26/2016 FATIMAH VICK Ot E11.9 TYPE 2 DIABETES MELLITUS WITHOUT COMPLIC 01/26/2016 FATIMAH VICK Ot N39.0 URINARY TRACT INFECTION, SITE NOT SPECIF 01/26/2016 FATIMAH VICK Ot R10.84 GENERALIZED ABDOMINAL PAIN 01/26/2016 FATIMAH VICK Ot R11.0 NAUSEA 01/26/2016 FATIMAH VICK L Ot R14.0 ABDOMINAL DISTENSION (GASEOUS) 01/26/2016 FATIMAH VICK Ot Z79.4 [facility] (CURRENT) USE OF INSULIN 02/16/2016 CHERRY MARTIN SKIN FITTER Ot R10.11 RIGHT UPPER QUADRANT PAIN 02/16/2016 CHERRY MARTIN SKIN FITTER Ot R10.11 RIGHT UPPER QUADRANT PAIN 02/17/2016 [...] 02/22/2016 BRITTON DO, ADRIENNE D Ot Z79.84 [facility] (CURRENT) USE OF ORAL HYPOGLYC 03/03/2016 ELSY DO, NOEL K Ot E11.9 TYPE 2 DIABETES MELLITUS WITHOUT COMPLIC 03/03/2016 ELSY DO, NOEL K Ot J02.9 ACUTE PHARYNGITIS, UNSPECIFIED 03/03/2016 ELSY DO, NOEL K Ot R05 COUGH 03/03/2016 ELSY DO, NOEL K Ot Z79.4 BUTTING SAW OPERATOR (CURRENT) USE OF INSULIN 03/03/2016 ELSY DO, NOEL K Ot Z79.84 BUTTING SAW OPERATOR (CURRENT) USE OF ORAL HYPOGLYC 03/06/2016 ELSY DO, NOEL K Ot E11.9 TYPE 2 DIABETES MELLITUS WITHOUT COMPLIC 03/06/2016 ELSY DO, NOEL K Ot J02.9 ACUTE PHARYNGITIS, UNSPECIFIED 03/06/2016 ELSY DO, NOEL K Ot R05 COUGH 03/06/2016 ELSY DO, NOEL K Ot Z79.4 [facility] (CURRENT) USE OF INSULIN 03/06/2016 ELSY DO, NOEL K Ot Z79.84 [facility] (CURRENT) USE OF ORAL HYPOGLYC 03/08/2016 BRITTON DO, ADRIENNE D Ot E11.9 TYPE 2 DIABETES MELLITUS WITHOUT COMPLIC 03/08/2016 BRITTON DO, ADRIENNE D Ot K29.70 GASTRITIS, UNSPECIFIED, WITHOUT BLEEDING 03/08/2016 BRITTON DO, ADRIENNE D Ot K44.9 DIAPHRAGMATIC HERNIA WITHOUT OBSTRUCTION 03/08/2016 BRITTON DO, ADRIENNE D Ot Z79.84 [facility] (CURRENT) USE OF ORAL HYPOGLYC 03/10/2016 LISS BAGLEY APRN Ot E11.9 TYPE 2 DIABETES MELLITUS WITHOUT COMPLIC 03/10/2016 ILSS BAGLEY MINOR LEAGUE BASEBALL PLAYER Ot I10 ESSENTIAL (PRIMARY) HYPERTENSION 03/10/2016 LISS BAGLEY APRN Ot J40 BRONCHITIS, NOT SPECIFIED ACUTE OR CH 03/10/2016 LISS BAGLEY MINOR LEAGUE BASEBALL PLAYER Ot R05 COUGH 03/10/2016 LISS BAGLEY MINOR LEAGUE BASEBALL PLAYER Ot Z79.4 BUTTING SAW OPERATOR (CURRENT) USE OF INSULIN 03/10/2016 LISS BAGLEY MINOR LEAGUE BASEBALL PLAYER Ot Z79.84 [facility] (CURRENT) USE OF ORAL HYPOGLYC 03/10/2016 LISS BAGLEY MINOR LEAGUE BASEBALL PLAYER Ot Z79.899 OTHER BUTTING SAW OPERATOR (CURRENT) DRUG THERAPY 03/13/2016 BRITTON DOADRIENNE D Ot E11.9 TYPE 2 DIABETES MELLITUS WITHOUT COMPLIC 03/13/2016 BRITTON DODIATT D Ot K29.70 GASTRITIS, UNSPECIFIED, WITHOUT BLEEDING 03/13/2016 ADRIENNE BRITTON DO D Ot K44.9 DIAPHRAGMATIC HERNIA WITHOUT OBSTRUCTION 03/13/2016 ADRIENNE BRITTON DO Ot Z79.84 BUTTING SAW OPERATOR (CURRENT) USE OF ORAL HYPOGLYC 03/14/2016 LISS BAGLEY APRN Ot E11.9 TYPE 2 DIABETES MELLITUS WITHOUT COMPLIC 03/14/2016 LISS BAGLEY MINOR LEAGUE BASEBALL PLAYER Ot I10 ESSENTIAL (PRIMARY) HYPERTENSION 03/14/2016 LISS BAGLEY APRN Ot J40 BRONCHITIS, NOT SPECIFIED ACUTE OR CH 03/14/2016 LISS BAGLEY APRN Ot R05 COUGH 03/14/2016 LISS BAGLEY APRN Ot Z79.4 [facility] (CURRENT) USE OF INSULIN 03/14/2016 LISS BAGLEY APRN Ot Z79.84 BUTTING SAW OPERATOR (CURRENT) USE OF ORAL HYPOGLYC 03/14/2016 LISS BAGLEY APRN Ot Z79.899 OTHER BUTTING SAW OPERATOR (CURRENT) DRUG THERAPY 04/05/2016 WILEY AMBRIZ MD Ot E11.9 TYPE 2 DIABETES MELLITUS WITHOUT COMPLIC 04/05/2016 WILEY AMBRIZ MD Ot J40 BRONCHITIS, NOT SPECIFIED ACUTE OR CH 04/05/2016 WILEY AMBRIZ MD Ot K44.9 DIAPHRAGMATIC HERNIA WITHOUT OBSTRUCTION 04/05/2016 WILEY AMBRIZ MD Ot R10.10 UPPER ABDOMINAL PAIN, UNSPECIFIED 04/05/2016 WILEY AMBRIZ MD Ot R10.13 EPIGASTRIC PAIN 04/05/2016 WILEY AMBRIZ MD Ot Z79.4 BUTTING SAW OPERATOR (CURRENT) USE OF INSULIN 04/05/2016 WILEY AMBRIZ MD Ot Z79.84 BUTTING SAW OPERATOR (CURRENT) USE OF ORAL HYPOGLYC 04/05/2016 WILEY AMBRIZ MD Ot Z79.899 OTHER [facility] (CURRENT) DRUG THERAPY 04/05/2016 WILEY AMBRIZ MD Ot E11.9 TYPE 2 DIABETES MELLITUS WITHOUT COMPLIC 04/05/2016 WILEY AMBRIZ MD Ot J40 BRONCHITIS, NOT SPECIFIED ACUTE OR CH 04/05/2016 WILEY AMBRIZ MD Ot K44.9 DIAPHRAGMATIC HERNIA WITHOUT OBSTRUCTION 04/05/2016 WILEY AMBRIZ MD Ot R10.10 UPPER ABDOMINAL PAIN, UNSPECIFIED 04/05/2016 WILEY AMBRIZ MD Ot R10.13 EPIGASTRIC PAIN 04/05/2016 WILEY AMBRIZ MD Ot Z79.4 BUTTING SAW OPERATOR (CURRENT) USE OF INSULIN 04/05/2016 WILEY AMBRIZ MD Ot Z79.84 BUTTING SAW OPERATOR (CURRENT) USE OF ORAL HYPOGLYC 04/05/2016 WILEY AMBRIZ MD Ot Z79.899 OTHER [facility] (CURRENT) DRUG THERAPY 04/16/2016 LISS BAGLEY APRN Ot E11.9 TYPE 2 DIABETES MELLITUS WITHOUT COMPLIC 04/16/2016 LISS BAGLEY APRN Ot J40 BRONCHITIS, NOT SPECIFIED ACUTE OR CH 04/16/2016 LISS BAGLEY MINOR LEAGUE BASEBALL PLAYER Ot J45.909 UNSPECIFIED ASTHMA, UNCOMPLICATED 04/16/2016 LISS BAGLEY MINOR LEAGUE BASEBALL PLAYER Ot Z79.84 BUTTING SAW OPERATOR (CURRENT) USE OF ORAL HYPOGLYC 04/16/2016 LISS BAGLEY MINOR LEAGUE BASEBALL PLAYER Ot Z79.899 OTHER [facility] (CURRENT) DRUG THERAPY 04/17/2016 LISS BAGLEY APRN Ot E11.9 TYPE 2 DIABETES MELLITUS WITHOUT COMPLIC 04/17/2016 LISS BAGLEY APRN Ot J40 BRONCHITIS, NOT SPECIFIED ACUTE OR CH 04/17/2016 LISS BAGLEY MINOR LEAGUE BASEBALL PLAYER Ot J45.909 UNSPECIFIED ASTHMA, UNCOMPLICATED 04/17/2016 LISS BAGLEY MINOR LEAGUE BASEBALL PLAYER Ot Z79.84 [facility] (CURRENT) USE OF ORAL HYPOGLYC 04/17/2016 LISS BAGLEY APRN Ot Z79.899 OTHER [facility] (CURRENT) DRUG THERAPY 04/23/2016 WILEY AMBRIZ MD Ot E11.65 TYPE 2 DIABETES MELLITUS WITH HYPERGLYCE 04/23/2016 WILEY AMBRIZ MD Ot K44.9 DIAPHRAGMATIC HERNIA WITHOUT OBSTRUCTION 04/23/2016 WILEY AMBRIZ MD Ot R10.13 EPIGASTRIC PAIN 04/23/2016 WILEY AMBRIZ MD Ot R11.2 NAUSEA WITH VOMITING, UNSPECIFIED 04/23/2016 WILEY AMBRIZ MD Ot Z79.4 BUTTING SAW OPERATOR (CURRENT) USE OF INSULIN 04/23/2016 WILEY AMBRIZ MD Ot Z79.84 [facility] (CURRENT) USE OF ORAL HYPOGLYC 04/23/2016 WILEY AMBRIZ MD Ot Z79.899 OTHER [facility] (CURRENT) DRUG THERAPY 04/23/2016 WILEY AMBRIZ MD, Ot E11.65 TYPE 2 DIABETES MELLITUS WITH HYPERGLYCE 04/23/2016 WILEY AMBRIZ MD Ot K44.9 DIAPHRAGMATIC HERNIA WITHOUT OBSTRUCTION 04/23/2016 WILEY AMBRIZ MD Ot R10.13 EPIGASTRIC PAIN 04/23/2016 WILEY AMBRIZ MD Ot R11.2 NAUSEA WITH VOMITING, UNSPECIFIED 04/23/2016 WILEY AMBRIZ MD Ot Z79.4 [facility] (CURRENT) USE OF INSULIN 04/23/2016 WILEY AMBRIZ MD Ot Z79.84 BUTTING SAW OPERATOR (CURRENT) USE OF ORAL HYPOGLYC 04/23/2016 WILEY AMBRIZ MD Ot Z79.899 OTHER BUTTING SAW OPERATOR (CURRENT) DRUG THERAPY 04/27/2016 WILEY AMBRIZ MD Ot E11.65 TYPE 2 DIABETES MELLITUS WITH HYPERGLYCE 04/27/2016 WILEY AMBRIZ MD Ot K44.9 DIAPHRAGMATIC HERNIA WITHOUT OBSTRUCTION 04/27/2016 WILEY AMBRIZ MD Ot R10.13 EPIGASTRIC PAIN 04/27/2016 WILEY AMBRIZ MD Ot R11.2 NAUSEA WITH VOMITING, UNSPECIFIED 04/27/2016 WILEY AMBRIZ MD Ot Z79.4 [facility] (CURRENT) USE OF INSULIN 04/27/2016 WILEY AMBRIZ MD Ot Z79.84 BUTTING SAW OPERATOR (CURRENT) USE OF ORAL HYPOGLYC 04/27/2016 WILEY AMBRIZ MD Ot Z79.899 OTHER [facility] (CURRENT) DRUG THERAPY 05/24/2016 KRISTATYRONE CUELLARINE Sridevi MINOR LEAGUE BASEBALL PLAYER Ot J45.909 UNSPECIFIED ASTHMA, UNCOMPLICATED 05/24/2016 KRISTA, CASSANDRA E MINOR LEAGUE BASEBALL PLAYER Ot R05 COUGH 05/24/2016 KRISTA, CASSANDRA E MINOR LEAGUE BASEBALL PLAYER Ot R06.00 DYSPNEA, UNSPECIFIED 05/24/2016 KRISTATYRONECASSANDRA E MINOR LEAGUE BASEBALL PLAYER Ot J45.909 UNSPECIFIED ASTHMA, UNCOMPLICATED 05/24/2016 KRITSA CASSANDRA E MINOR LEAGUE BASEBALL PLAYER Ot R05 COUGH 05/24/2016 KRISTA, CASSANDRA E MINOR LEAGUE BASEBALL PLAYER Ot R06.00 DYSPNEA, UNSPECIFIED 06/04/2016 KRISTA CASSANDRA E MINOR LEAGUE BASEBALL PLAYER Ot J45.909 UNSPECIFIED ASTHMA, UNCOMPLICATED 06/04/2016 KRISTA CASSANDRA E MINOR LEAGUE BASEBALL PLAYER Ot R05 COUGH 06/04/2016 KRISTA, CASSANDRA E MINOR LEAGUE BASEBALL PLAYER Ot R06.00 DYSPNEA, UNSPECIFIED 06/09/2016 VALERIE CAMPOVERDE [...] UNSPECIFIED 06/09/2016 VALERIE CAMPOVERDE MD Ot Z79.4 BUTTING SAW OPERATOR (CURRENT) USE OF INSULIN 06/09/2016 VALERIE CAMPOVERDE [...] UNSPECIFIED 06/09/2016 VALERIE CAMPOVERDE MD Ot Z79.4 [facility] (CURRENT) USE OF INSULIN Procedures Code Description [place] [address] A1C (IN-HOUSE) JENNA ORELLANA BRANDIE Kal Peterson 07/07/2012 13727 XRAY KNEE LEFT, 1 OR 2 VIEWS 09/02/2012 96432 ROUTINE VENIPUNCTURE 11/21/2012 82841 TSH 11/21/2012 36441 A1C (IN-HOUSE) 46906 MICRO ALBUMIN-IN HOUSE 11/21/2012 29830 MICROALBUMIN 66999 CBC 11/21/2012 05555 CMP 11/21/2012 71815 LIPID PANEL 11/21 [id number] GFR CALC (RESULT ONLY) 11/21/2012 88019 A1C (IN-HOUSE) 37411 ROUTINE VENIPUNCTURE 01/22/2014 51275 CMP 01/22/2014 02240 LIPID PANEL 01/22 99570 TSH 01/22/2014 00549 CBC 01/22/2014 15882 A1C (IN-HOUSE) 78407 THERAPUTIC INJ SQ/IM 05/31/2014 J1885 TORADOL INJ 05/31 77668 MICRO ALBUMIN-IN HOUSE 05/31/2014 86771 MICROALBUMIN 78634 XRAY CERVICAL SPINE, 2 OR 3 VIEWS [...] culture - 11/27/15 22:06 Bacterial urine culture [id number] NRG COLONY COUNT 10,000/ML - 100,000/ML NRG [...] culture - 12/13/15 21:50 Bacterial urine culture [id number] NRG COLONY COUNT >100,000/ML NRG MRSA AGAR [...] FOR INFLUENZA A AND B ANTIGENS BY [facility] Complete blood count (CBC) with automated white [...] Status Pt. Type Provider Facility Loc./Unit Complaint [id number] 07/02/2014 09:11:00 07/02/2014 23: 59:59 CLS Outpatient CHERRY MARTIN APRN [id number] 05/31/2014 09:13:00 05/31/2014 23: 59:59 CLS Outpatient CHERRY MARTIN APRN [id number] 03/31/2014 09:55:00 03/31/2014 23: 59:59 CLS Outpatient CHERRY MARTIN APRN [id number] 02/22/2014 16:10:00 02/22/2014 23: 59:59 CLS Outpatient CHERRY MARTIN APRN [id number] 01/22/2014 08:37:00 01/22/2014 23: 59:59 CLS Outpatient CHERRY MARTIN APRN Hillary [id number] 08/24/2013 09:05:00 08/24/2013 23: 59:59 CLS Outpatient CHERRY MARTIN APRN [id number] 07/24/2013 09:45:00 07/24/2013 23: 59:59 CLS Outpatient CHERRY MARTIN APRN [id number] 05/23/2012 08:12:00 05/23/2012 23: 59:59 CLS Outpatient [id number] 01/08/2012 09:40:00 01/08/2012 23: 59:59 CLS Outpatient RIAZ REAL DO Kelsi [id number] 01/08/2012 09:40:00 01/08/2012 23:59 :59 CLS Outpatient [id number] 11/21/2012 09:20:00 Document Registration [id number] 09/02/2012 09:01:00 Document Registration [id number] 08/01/2012 09:41:00 Document Registration [id number] 07/04/2012 08:48:00 Document Registration [id number] 06/24/2012 13:23:00 Document Registration
== END 2016-06-09 14:04 | disposition home or self-care (01) ==
LOC: DELPENDDIS → EDUNIT# 20:12 → ER 20:13 → 4TH 06-08 00:04 → UNDOADMOB 06-08 00:04 → 4TH 06-08 01:20
PROVIDERS: ADMIT Family Medicine; ATTEND Family Medicine
DX: R10.13 Epigastric pain (principal); K44.9 Diaphragmatic hernia without obstruction or gangrene; K56.7 Ileus, unspecified; R11.2 Nausea with vomiting, unspecified; E11.9 Type 2 diabetes mellitus without complications; Z79.4 Long term (current) use of insulin; J45.909 Unspecified asthma, uncomplicated
CPT/HCPCS: 36415; 71010; 74177; 80053; 81000; 82962; 83690; 84703; 85025; 96361; 96374; 96375; G0378

== ENCOUNTER 2016-07-18 09:13 | Outpatient (CLI) | payer OTHER ==
[~2016-07-18] VITALS: Ht 160 cm; Wt 89.4 kg
[~2016-07-18 09:13] MED LIST changes: +ACET-2267 PO; +FLUT1BLS IH; +GUAI400T71 PO; +HYOS0.1216 SL; +ONDA8TAB12 PO; +PANT40TA3 PO
[2016-07-18 09:32] VITALS: BP 139/89
[2016-07-18 10:05] LABS: BASOPHILS % (AUTO) 0 % (0-10); EOSINOPHILS % (AUTO) 0 % (0-10); LYMPHOCYTES # (AUTO) 1.7 X 10^3 (1.0-4.0); LYMPHOCYTES % (AUTO) 23 % (12-44); MEAN CORPUSCULAR HEMOGLOBIN 25 PG (25-34); MEAN CORPUSCULAR HGB CONC 32 G/DL (32-36); MEAN CORPUSCULAR VOLUME 78 FL (80-99); MEAN PLATELET VOLUME 9.4 FL (7.4-10.4); MONOCYTES # (AUTO) 0.5 X 10^3 (0.0-1.0); MONOCYTES % (AUTO) 6 % (0-12); NEUTROPHILS # (AUTO) 5.2 X 10^3 (1.8-7.8); NEUTROPHILS % (AUTO) 70 % (42-75); PLATELET COUNT 523 10^3/uL (130-400); RED BLOOD COUNT 4.48 10^6/uL (4.35-5.85); WHITE BLOOD COUNT 7.4 10^3/uL (4.3-11.0)
[2016-07-18 10:44] LABS: ANION GAP 10 MMOL/L (5-14); BLOOD UREA NITROGEN 10 MG/DL (7-18); BUN/CREATININE RATIO 14; CALCIUM 9.7 MG/DL (8.5-10.1); CARBON DIOXIDE 22 MMOL/L (21-32); CHLORIDE 108 MMOL/L (98-107); CREATININE SERUM 0.73 MG/DL (0.60-1.30); GFR ESTIMATED > 60; GLUCOSE 112 MG/DL (70-105); POTASSIUM 3.7 MMOL/L (3.6-5.0); SODIUM 140 MMOL/L (135-145)
== END 2016-07-18 09:53 | disposition home or self-care (01) ==
LOC: PREOP 09:13
PROVIDERS: ATTEND Surgery
DX: Z01.812 Encounter for preprocedural laboratory examination (principal); Z11.2 Encounter for screening for other bacterial diseases; K21.9 Gastro-esophageal reflux disease without esophagitis; R13.10 Dysphagia, unspecified
CPT/HCPCS: 36415; 80048; 85025; 87081

== ENCOUNTER 2016-07-25 08:18 | Day surgery (SDC) | payer OTHER ==
[~2016-07-25] VITALS: Ht 160 cm; Wt 89.4 kg
[2016-07-25] MEDS ORDERED: VANCOMYCIN 1 GM/NS 250 ML IVPB IV ONE ×2 (08:30)
[2016-07-25] MEDS ORDERED: LIDOCAINE 1% 10 MG/ML 0.2 ML SYR (FOR IV START) ONE (08:42)
[2016-07-25] MEDS ORDERED: FAMOTIDINE 20MG/2ML IV (PEPCID) ONE (08:52)
[2016-07-25] MEDS ORDERED: FAMOTIDINE 20MG/2ML IV (PEPCID) IV ONE (09:00)
[2016-07-25] MEDS ORDERED: LIDOCAINE 1% 10 MG/ML 0.2 ML SYR (FOR IV START) INJ ONE (09:00)
--- NOTE | 2016-07-25 09:04 | Progress Note-Pre Operative ---
Pre-Operative Progress Note H&P Reviewed The H&P was reviewed, patient examined and no changes noted. Date H&P Reviewed: July 25, 2016 Time H&P Reviewed: 09:04 Pre-Operative Diagnosis: severe GERD ADAN COLLIER MD July 25, 2016 9:04 am
[2016-07-25] MEDS: LACTATED RINGERS 1,000 ML IV PRN ×2 (09:08→11:20)
[2016-07-25] MEDS ORDERED: SUCCINYLCHOLINE INJ 100 MG/5 ML SYR ONE (09:13)
[2016-07-25] MEDS ORDERED: fentaNYL INJECTION 250 MCG/5 ML AMP ONE (09:13)
[2016-07-25] MEDS ORDERED: LACTATED RINGERS 1,000 ML IV ONE ×2 (09:13→11:50)
[2016-07-25] MEDS ORDERED: ROCURONIUM 50 MG/5 ML (ZEMURON) VIAL IV ONE ×2 (09:13→11:50)
[2016-07-25] MEDS ORDERED: SEVOFLURANE (ULTANE) 15 ML INHAL SOLN ONE ×10 (09:13→12:29)
[2016-07-25] MEDS ORDERED: LIDOCAINE PF 2% 10 ML (XYLOCAINE) AMP ONE (09:13)
[2016-07-25] MEDS ORDERED: proPOfol 200 MG/20 ML (DIPRIVAN) VIAL IV ONE (09:13)
[2016-07-25] MEDS ORDERED: MIDAZOLAM 2 MG/2 ML (VERSED) VIAL ONE (09:13)
[2016-07-25 09:24] VITALS: BP 141/94
[2016-07-25] MEDS ORDERED: BUP/EPI 0.25% 1:200,000 (MARCAINE) 30 ML VIAL ONE (09:27)
[2016-07-25] MEDS ORDERED: NEOSTIGMINE (BLOXIVERZ ) 1 MG/1ML 10 ML VIAL ONE (12:27)
[2016-07-25] MEDS ORDERED: GLYCOPYRROLATE 0.2 MG/ML (ROBINUL) 2 ML VIAL ONE (12:27)
[2016-07-25] MEDS ORDERED: ONDANSETRON 4 MG/2 ML (SDV) Z0FRAN IVP PRN ×2 (12:30→12:45)
[2016-07-25] MEDS ORDERED: MEPERIDINE (DEMEROL) INJ 50 MG/ML IVP PRN (12:30)
--- NOTE | 2016-07-25 12:36 | Progress Note-Post Operative ---
Post-Operative Progess Note Surgeon (s)/Plate Hanger (s) Surgeon ADAN COLLIER MD Plate Hanger: not applicable Pre-Operative Diagnosis SEVERE GERD Post-Operative Diagnosis same Procedure & Operative Findings Date of Procedure 07/25/16 Procedure Performed/Findings robotic assisted fundoplication Anesthesia Type Gen. Estimated Blood Loss Estimated blood loss (mL): minimal Specimens/Packing Specimens Removed none Packing: none ADAN COLLIER MD July 25, 2016 12:36 pm
[2016-07-25] MEDS: morphine INJ 10 MG/ML 1ML (SYR OR VIAL) IVP PRN ×2 (13:02→13:11)
[2016-07-25] MEDS ORDERED: HYDROmorphone (DILAUDID) 2 MG/ML VIAL ONE (13:23)
[2016-07-25] MEDS: HYDROmorphone (DILAUDID) 2 MG/ML VIAL IVP PRN ×2 (13:26→13:36)
[2016-07-25] MEDS: LACTATED RINGERS 1,000 ML IV SCH ×2 (14:16→21:19)
[2016-07-25] MEDS: fentaNYL INJECTION 100 MCG/2 ML AMP IV PRN ×3 (14:17→20:09)
[2016-07-25 16:10] VITALS: BP 143/93
[2016-07-25] MEDS: inSUlin ASPART (NovoLOG) 1 UNIT/0.01 ML (CHARGE PER UNIT) SC SCH ×2 (16:17→21:19)
[2016-07-25 20:05] VITALS: BP 133/76
[2016-07-26] VITALS: BP 112/72
[2016-07-26] MEDS: fentaNYL INJECTION 100 MCG/2 ML AMP IV PRN ×3 (01:35→08:00)
[2016-07-26] MEDS: LACTATED RINGERS 1,000 ML IV SCH (03:56)
[2016-07-26 04:25] VITALS: BP 120/79
[2016-07-26] MEDS: inSUlin ASPART (NovoLOG) 1 UNIT/0.01 ML (CHARGE PER UNIT) SC SCH ×2 (05:49→11:30)
[2016-07-26 07:38] VITALS: BP 125/72
[2016-07-26] MEDS: KETOROLAC 15 MG/ML VIAL IVP SCH ×2 (08:00→14:26)
--- NOTE | 2016-07-26 08:52 | OPERATIVE REPORT ---
DATE OF SERVICE: 07/25/2016 PREOPERATIVE DIAGNOSIS: Intractable gastroesophageal reflux disease. POSTOPERATIVE DIAGNOSIS: Intractable gastroesophageal reflux disease. OPERATION PERFORMED: Robotic assisted Jagjit fundoplication. SURGEON: Dr. Tay Collier ANESTHESIA: General anesthesia. ESTIMATED BLOOD LOSS: Minimal. FLUIDS: 1500 mL Crystalloid. TYPE OF WOUND: Type 1 (clean). INDICATION FOR PROCEDURE: This lady presented with severe symptoms of reflux disease resistant to maximal drug therapy. Manometry showed a very lax lower esophageal sphincter with preserved esophageal motility. Therefore, it was felt reasonable to proceed with fundoplication using minimally invasive technique with robotic assistance. Informed consent was obtained after reviewing the operative details and complications of dysphagia, postoperative bleeding and persistence of the symptoms. DESCRIPTION OF PROCEDURE: She was placed supine on the operating table and general anesthesia induced using an endotracheal tube. One gram of vancomycin was administered intravenously as prophylaxis against wound infection. Sequential compression devices were placed around the legs, minimize the risk of any thrombus. A Pearce catheter was placed to decompress the bladder during surgery. It was removed at the end of the operation. Abdomen was prepped and draped in the usual sterile manner. Pneumoperitoneum was established using a Veress needle introduced about 4 cm cephalad to the umbilicus. Intraabdominal pressure was maintained at 15 mmHg. A 12 mm trocar was placed and anatomy visualized using the high definition, 3 dimensional laparoscope, associated with the Mixaloo system. Under direct view I placed an 8 mm trocar over each side of the abdomen followed by another 8 mm trocar over the left subcostal region to facilitate using the robotic 3rd arm. Another 12 mm trocar was placed along the midaxillary line to facilitate the passage of suture material. A 3 mm incision was made over the subxiphoid region and a self-retaining Nathansen retractor introduced under view, being positioned under the left lobe of the liver, for retraction. It was secured using the self-retaining system. The patient was then turned into steep reverse Trendelenburg position. Robotic system was then docked in place. Lesser omentum was taken down using the vessel sealing device, preserving some of the left gastric branches. The right emmett of the diaphragm was identified easily. The phrenoesophageal ligament was then incised and dissection continued anterior to the esophagus without damaging the vagus nerve. Once an adequate retroesophageal window was created, I began mobilizing the fundus from the left side. Short gastric vessels were taken down using the vessel sealing device, dissection being continued around the fundus protecting the spleen. Subsequently, I was able to bring the fundus along the retroesophageal window without any tension (shoe-shine maneuver). The gastroesophageal junction was then held up using a [place] drain in preparation for crural repair. This was completed using 0 Ethibond sutures with robotic assistance. Care was taken to avoid any tension on the gastroesophageal junction. The Alen drain was then removed and fundoplication performed using a total of 3 sutures with 0 Ethibond with robotic assistance. The central suture incorporated some of the periesophageal tissue. Hemostasis was satisfactory and the operation concluded. Incisions were closed using 4-0 Monocryl, in a subcuticular fashion. Then 0.25% Marcaine with epinephrine was infiltrated along the incisions, both preemptively and at the conclusion of the operation. She tolerated the procedure well, was extubated in the operating room and taken to the recovery room in stable condition. Needle, sponges and instruments were correct at the end of the operation. Job ID: [id number] DocumentID: [id number] Dictated Date: 07/25/2016 12:33:35 Slot Operations Manager Date: 07/26/2016 08:52:05 Dictated By: TAY COLLIER MD [facility]
[2016-07-26] MEDS ORDERED: PANTOPRAZOLE 40 MG/10 ML (PROTONIX) VIAL IVP SCH (09:00)
--- NOTE | 2016-07-26 09:54 | Progress Note-Standard ---
Standard Progress Note Progress Notes/Assess & Plan Progress/Assessment & Plan 07/26/16: Doing well. Incisions dry. Tolerating soft diet, home today Final Diagnosis Intractable GERD ADAN COLLIER MD July 26, 2016 9:53 am
[2016-07-26] MEDS ORDERED: HYDR473S50 PO (09:55)
--- NOTE | 2016-07-26 09:56 | Discharge Inst-Simple/Standard ---
Discharge Inst-Standard Discharge Medications New, Converted or Re-Newed RX: RX on Chart Patient Instructions/Follow Up Plan of Care/Instructions/FU: F/U in 3 weeks> Off work until seen. Work excuse as needed Activity as Tolerated: Yes Discharge Diet: Soft Diet ADAN COLLIER MD July 26, 2016 9:56 am
--- NOTE | 2016-07-26 10:42 | Anesthesia-General Post-Op ---
General Patient Condition Mental Status/LOC: Same as Preop Cardiovascular: Satisfactory Nausea/Vomiting: Absent Respiratory: Satisfactory Pain: Controlled Complications: Absent Post Op Complications Complications None Follow Up Care/Instructions Patient Instructions None needed. Anesthesia/Patient Condition Patient Condition Patient is doing well, no complaints, stable vital signs, no apparent adverse anesthesia problems. No complications reported per nursing. D/[place] home [place] [facility] [place]: No STACIE RODRIGUEZ CRNA July 26, 2016 10:42
[2016-07-26 12:00] VITALS: BP 127/78
[2016-07-26 15:00] VITALS: BP 127/78
== END 2016-07-26 15:30 | disposition home or self-care (01) ==
LOC: SDC 08:18 → 4TH 13:55 → SDC 07-26 15:30
PROVIDERS: ATTEND Surgery
DX: K21.9 Gastro-esophageal reflux disease without esophagitis (principal); E78.5 Hyperlipidemia, unspecified; J45.909 Unspecified asthma, uncomplicated; E66.9 Obesity, unspecified; Z79.899 Other long term (current) drug therapy; Z68.34 Body mass index [BMI] 34.0-34.9, adult
CPT/HCPCS: 82962; 84703; 94664

== ENCOUNTER 2016-07-28 15:29 | Inpatient (IN) | payer OTHER ==
[~2016-07-28] VITALS: Ht 162.6 cm; Wt 90.6 kg
[~2016-07-28 15:29] MED LIST changes: +HYDR473S50 PO
--- NOTE | 2016-07-28 16:13 | ED Abdominal Pain ---
General Chief Complaint: Respiratory Problems Stated Complaint: SOB Source of Information: Patient Exam Limitations: No Limitations History of Present Illness Time Seen By Provider: 16:09 Initial Comments The patient is a 46-year-old white female who presents to the emergency room with severe abdominal pain. She underwent a laparoscopic Jagjit fundoplication on Tuesday 07/25. She was discharged on 07/26 and reports she had abdominal pain at that time. The pain has increased since that time. She has not vomited. She has not had a bowel movement. She has not had observed fever at home however there have been considerable sweats. She cannot find a place to get comfortable sitting or lying down. She reports that she is short of breath and is observed to be quite tachypneic. Timing/Duration: 2-3 Days Severity/Quality: Moderate, Severe Location: Generalized Abdomen Radiation: No Radiation Activities at Onset: None Modifying Factors: Improves With Movement Allergies and Home Medications Allergies Coded Allergies: Penicillins (Verified Allergy, Mild, 03/10/16) Home Medications Acetaminophen 500 Mg Tablet, 1,000 MG PO Q6H PRN for PAIN, (Reported) Cetirizine HCl 10 Mg Capsule, 10 MG PO DAILY, (Reported) Guaifenesin 400 Mg Tablet, 400 MG PO BID, (Reported) Hydrocodone/Acetaminophen 473 Ml Solution, 15 ML PO Q4H PRN for ABDOMINAL PAIN, #480 Prescribed by: ADAN COLLIER on 07/26/16 0955 Hyoscyamine Sulfate 0.125 Mg Tablet, 0.125 MG SL AC PRN for CHOKING, (Reported) Insulin Glargine,Hum.rec.anlog 100 Unit/1 Ml Insuln.pen, 56 UNITS SC HS, ( Reported) Metformin HCl 1,000 Mg Tablet, 1,000 MG PO BID, (Reported) Ondansetron HCl 8 Mg Tablet, 8 MG PO TID PRN for NAUSEA, (Reported) Pantoprazole Sodium 40 Mg Tablet.dr, 40 MG PO, #30 (Reported) Review of Systems Constitutional: see HPI EENTM: No Symptoms Reported Respiratory: SOA With Exertion, SOA at Rest Cardiovascular: No Symptoms Reported Gastrointestinal: See HPI, Abdomen Distended, Abdominal Pain Genitourinary: No Symptoms Reported Musculoskeletal: no symptoms reported Skin: no symptoms reported Psychiatric/Neurological: No Symptoms Reported Endocrine: No Symptoms Reported Hematologic/Lymphatic: No Symptoms Reported Past Cybwtba-Iafugg-Wrtltv Hx Patient Social History 2nd Hand Smoke Exposure: No Recent Foreign Travel: No Contact w/Someone Who Travel: No Recent Hopitalizations: No Immunizations Up To Date Tetanus Booster (TDap): Unknown PED Vaccines UTD: No Date of Influenza Vaccine: Jan 10, 2016 Seasonal Allergies Seasonal Allergies: Yes Surgeries HX Surgeries: Yes (LT KNEE SURGERY, ENDOSCOPY, EYE SX) Surgeries: Abdominal, Eye Surgery Respiratory Hx Respiratory Disorders: Yes Respiratory Disorders: Asthma, Chronic Bronchitis Cardiovascular Hx Cardiac Disorders: No Cardiac Disorders: High Cholesterol Neurological Hx Neurological Disorders: No Reproductive System Hx Reproductive Disorders: No Sexually Transmitted Disease: No HIV/AIDS: No Female Reproductive Disorders: Denies Genitourinary Hx Genitourinary Disorders: Yes Genitourinary Disorders: UTI-Chronic Gastrointestinal Hx Gastrointestinal Disorders: Yes (ESOPHAGEAL NARROWING) Gastrointestinal Disorders: Gastroesophageal Reflux, Hiatal Hernia, Ulcer Musculoskeletal Hx Musculoskeletal Disorders: Yes Musculoskeletal Disorders: Arthritis Endocrine Hx Endocrine Disorders: Yes Endocrine Disorders: Diabetes, Insulin dep HEENT HX ENT Disorders: Yes (GLASSES) Loss of Vision: Bilateral Hearing Impairment: Denies Cancer Hx Cancer: No Psychosocial Hx Psychiatric Problems: No Integumentary HX Skin/Integumentary Disorder: No Blood Transfusions Hx Blood Disorders: No Adverse Reaction to a Blood Tr: No Family Medical History Significant Family History: No Pertinent Family Hx Family Medial History: Arthritis 19 FATHER 19 MOTHER G8 SISTER Asthma 19 FATHER 19 MOTHER G8 SISTER Cataracts 19 MOTHER Diabetes mellitus 19 FATHER 19 MOTHER G8 SISTER FH: leukemia 19 FATHER Myocardial infarction 19 MOTHER Parkinson's disease 19 FATHER Thyroid disease 19 MOTHER Physical Exam Vital Signs VS - Last 72 Hours, by Label 07/28/16 15:29 Temp 99.2 Pulse 110 Resp 36 B/P (MAP) 153/105 Pulse Ox 94 O2 Delivery Nasal Cannula Capillary Refill : General Appearance: moderate distress, severe distress HEENT: normal ENT inspection Neck: full range of motion Respiratory: decreased breath sounds, other Cardiovascular: tachycardia Gastrointestinal: guarding, other (rigidity) Extremities: normal range of motion, non-tender, normal inspection, no pedal edema, no calf tenderness, normal capillary refill, pelvis stable Skin: other (cool and damp) Lymphatic: no adenopathy Progress/Results/Core Measures Results/Orders Lab Results Laboratory Tests Test 07/28/16 15:55 Range/Units White Blood Count 11.6 H 4.3-11.0 10^3/uL Red Blood Count 3.67 L 4.35-5.85 10^6/uL Hemoglobin 9.2 L 11.5-16.0 G/DL Hematocrit 30 L 35-52 % Mean Corpuscular Volume 81 80-99 FL Mean Corpuscular Hemoglobin 25 25-34 PG Mean Corpuscular Hemoglobin Concent 31 L 32-36 G/DL Red Cell Distribution Width 18.1 H 10.0-14.5 % Platelet Count 510 H 130-400 10^3/uL Mean Platelet Volume 9.4 7.4-10.4 FL Neutrophils (%) (Auto) 78 H 42-75 % Lymphocytes (%) (Auto) 15 12-44 % Monocytes (%) (Auto) 7 0-12 % Eosinophils (%) (Auto) 0 0-10 % Basophils (%) (Auto) 0 0-10 % Neutrophils # (Auto) 9.1 H 1.8-7.8 X 10^3 Lymphocytes # (Auto) 1.7 1.0-4.0 X 10^3 Monocytes # (Auto) 0.8 0.0-1.0 X 10^3 Eosinophils # (Auto) 0.0 0.0-0.3 10^3/uL Basophils # (Auto) 0.0 0.0-0.1 10^3/uL Sodium Level 137 135-145 MMOL/L Potassium Level 3.4 L 3.6-5.0 MMOL/L Chloride Level 102 98-107 MMOL/L Carbon Dioxide Level 24 21-32 MMOL/L Anion Gap 11 5-14 MMOL/L Blood Urea Nitrogen 5 L 7-18 MG/DL Creatinine 0.73 0.60-1.30 MG/DL Estimat Glomerular Filtration Rate > 60 BUN/Creatinine Ratio 7 Glucose Level 234 H 70-105 MG/DL Calcium Level 9.1 8.5-10.1 MG/DL Total Bilirubin 0.6 0.1-1.0 MG/DL Aspartate Amino Transf (AST/SGOT) 46 H 5-34 U/L Alanine Aminotransferase (ALT/SGPT) 117 H 0-55 U/L Alkaline Phosphatase 109 40-136 U/L Total Protein 7.2 6.4-8.2 G/DL Albumin 3.7 3.2-4.5 G/DL Lipase 5 L 8-78 U/L My Orders Orders - ODGERS,LEONARDO K MD Cbc With Automated Diff (07/28/16 16:07) Comprehensive Metabolic Panel (07/28/16 16:07) Lipase (07/28/16 16:07) Ct Chest/Abdomen/Pelvis Wo (07/28/16 16:27) Lidocaine 2% (Urojet) (Xylocaine Urojet) (07/28/16 17:13) Medications Given in ED Current Medications Medications Dose Ordered Sig/Hunter Route Start Time Stop Time Status Last Admin Dose Admin Lidocaine HCl 10 ml STK-MED ONCE .ROUTE 07/28/16 17:13 07/28/16 17:18 DC 07/28/16 17:26 10 ML Vital Signs/I&O Vital Sign - Last 12Hours 07/28/16 15:29 Temp 99.2 Pulse 110 Resp 36 B/P (MAP) 153/105 Pulse Ox 94 O2 Delivery Nasal Cannula Departure Communication Progress Notes CT scan showed remarkable distention of stomach small intestine and colon. Dr. Botello arrived and reviewed the films. It was felt that an NG tube for decompression was the best course of action. This was successfully completed and the patient was admitted for overnight observation. Impression Impression: Primary Impression: ileus/generalized intestinal dilatation Disposition: ADMITTED INPATIENT Condition: Improved Decision to Admit Reason: Admit from ER (General) Decision to Admit/Date: July 28, 2016 Time/Decision to Admit Time: 17:59 Departure-Patient Inst. Referrals: RIAZ REAL DO (PCP) Primary Care Physician CHERRY MARTIN (Family) Primary Care Physician LEONARDO BANEGAS MD July 28, 2016 16:13
[2016-07-28 16:19] LABS: BASOPHILS % (AUTO) 0 % (0-10); EOSINOPHILS % (AUTO) 0 % (0-10); LYMPHOCYTES # (AUTO) 1.7 X 10^3 (1.0-4.0); LYMPHOCYTES % (AUTO) 15 % (12-44); MEAN CORPUSCULAR HEMOGLOBIN 25 PG (25-34); MEAN CORPUSCULAR HGB CONC 31 G/DL (32-36); MEAN CORPUSCULAR VOLUME 81 FL (80-99); MEAN PLATELET VOLUME 9.4 FL (7.4-10.4); MONOCYTES # (AUTO) 0.8 X 10^3 (0.0-1.0); MONOCYTES % (AUTO) 7 % (0-12); NEUTROPHILS # (AUTO) 9.1 X 10^3 (1.8-7.8); NEUTROPHILS % (AUTO) 78 % (42-75); PLATELET COUNT 510 10^3/uL (130-400); RED BLOOD COUNT 3.67 10^6/uL (4.35-5.85); RED CELL DISTRIBUTION WIDTH 18.1 % (10.0-14.5); WHITE BLOOD COUNT 11.6 10^3/uL (4.3-11.0)
[2016-07-28 16:55] LABS: ALANINE AMINOTRANSFERASE 117 U/L (0-55); ALBUMIN 3.7 G/DL (3.2-4.5); ANION GAP 11 MMOL/L (5-14); ASPARTATE AMINO TRANSFERASE 46 U/L (5-34); BILIRUBIN,TOTAL 0.6 MG/DL (0.1-1.0); BLOOD UREA NITROGEN 5 MG/DL (7-18); BUN/CREATININE RATIO 7; CALCIUM 9.1 MG/DL (8.5-10.1); CARBON DIOXIDE 24 MMOL/L (21-32); CHLORIDE 102 MMOL/L (98-107); CREATININE SERUM 0.73 MG/DL (0.60-1.30); GFR ESTIMATED > 60; GLUCOSE 234 MG/DL (70-105); LIPASE 5 U/L (8-78); POTASSIUM 3.4 MMOL/L (3.6-5.0); SODIUM 137 MMOL/L (135-145); TOTAL PROTEIN 7.2 G/DL (6.4-8.2)
--- NOTE | 2016-07-28 17:00 | Diagnostic Imaging Report ---
PROCEDURE: CT chest, abdomen, and pelvis without contrast. TECHNIQUE: Multiple contiguous axial images were obtained through the chest, abdomen, and pelvis without the use of intravenous contrast. INDICATION: Recent hiatal hernia surgery. Increasing abdominal pain and constipation. COMPARISON: 06/07/2016. FINDINGS: Chest CT: There is moderate bilateral basilar atelectasis or infiltrate. There are small bilateral pleural effusions, larger on the left. There is no pneumothorax or adenopathy. Heart size is normal. There is a 1.9 cm indeterminate low-density nodule in the left lobe of the thyroid. No acute osseous abnormality is suspected. Chest CT IMPRESSION: 1. Bilateral basilar atelectasis or infiltrate with small bilateral pleural effusions larger on the left. 2. Incidental 1.9 cm left thyroid lobe nodule. Followup with thyroid ultrasound is recommended. This can be done on nonemergent basis. Abdomen/pelvis CT: There is postoperative change with what appears to be a Jagjit fundoplication. There is air within the region of the wrap although no discrete extraluminal air is seen. There is considerable distention of the stomach and there is mild diffuse distention of the small bowel, likely postoperative ileus but nonspecific. There is a moderate amount of stool in the colon. No bowel wall thickening or convincing evidence of obstruction is seen. The liver appears unremarkable. Gallbladder is mildly distended but otherwise unremarkable. The kidneys appear unremarkable. There is a small amount of free fluid in the pelvis which is nonspecific and may be postoperative. Uterus and adnexa appear unremarkable. There is no evidence of appendicitis. No adenopathy. The abdominal aorta appears normal in caliber. No acute osseous abnormality is suspected. IMPRESSION: 1. There are postoperative changes of what appear to be Jagjit fundoplication in the region of the gastroesophageal junction. 2. There is considerable distention of the stomach and mild to moderate distention of the small bowel diffusely, likely related to postoperative ileus but nonspecific. 3. There is moderate amount of stool in the colon. 4. There is a small amount of free fluid in the pelvis which is nonspecific. 5. No additional significant abnormality is demonstrated. Dictated by: Dictated on workstation # [id number]
[2016-07-28] MEDS ORDERED: LIDOCAINE UROJET 2% GEL 10 ML PKG ONE (17:13)
--- NOTE | 2016-07-28 17:41 | History & Physical-Surgical ---
History of Present Illness History of Present Illness Reason for visit/HPI HPI: The patient is a 46-year-old white female who presents to the emergency room with severe abdominal pain. She underwent a laparoscopic Jagjit fundoplication on Tuesday 07/25. She was discharged on 07/26 and reports she had abdominal pain at that time. The pain has increased since that time. She has not vomited. One of her main complaints is that she has not had a bowel movement. She denies fever at home; however admits to sweats. She cannot find a place to get comfortable sitting or lying down. She reports that she is short of breath and was observed by the ER to be tachypneic and hypoxic. She is rating her abdominal pain as 7 out of 10 on a 1-10 scale. Sharp stabbing pain. Not relieved by anything. Timing/Duration: 2-3 Days Severity/Quality: Moderate, Severe Location: Generalized Abdomen Radiation: No Radiation Activities at Onset: None Modifying Factors: Improves With Movement Date of Admission 07/28/2016 I consulted on this patient on 07/28/16 17:[address] Botello Admitting Physician Barbi White DO Consult Allergies and Home Medications Allergies Coded Allergies: Penicillins (Verified Allergy, Mild, 03/10/16) Home Medications Acetaminophen 500 Mg Tablet, 1,000 MG PO Q6H PRN for PAIN, (Reported) Cetirizine HCl 10 Mg Capsule, 10 MG PO DAILY, (Reported) Guaifenesin 400 Mg Tablet, 400 MG PO BID, (Reported) Hydrocodone/Acetaminophen 473 Ml Solution, 15 ML PO Q4H PRN for ABDOMINAL PAIN, #480 Prescribed by: ADAN COLLIER on 07/26/16 0955 Hyoscyamine Sulfate 0.125 Mg Tablet, 0.125 MG SL AC PRN for CHOKING, (Reported) Insulin Glargine,Hum.rec.anlog 100 Unit/1 Ml Insuln.pen, 56 UNITS SC HS, ( Reported) Metformin HCl 1,000 Mg Tablet, 1,000 MG PO BID, (Reported) Ondansetron HCl 8 Mg Tablet, 8 MG PO TID PRN for NAUSEA, (Reported) Past Dwwjmpb-Mdqdsh-Cuprkp Hx Patient Social History Alcohol Use: Denies Use Recreational Drug Use: No Smoking Status: Never a Smoker 2nd Hand Smoke Exposure: No Recent Foreign Travel: No Contact w/Someone Who Travel: No Recent Infectious Disease Expo: No Recent Hopitalizations: No Immunizations Up To Date Tetanus Booster (TDap): Unknown PED Vaccines UTD: No Date of Influenza Vaccine: Jan 10, 2016 Seasonal Allergies Seasonal Allergies: Yes Surgeries HX Surgeries: Yes (LT KNEE SURGERY, ENDOSCOPY, EYE SX) Surgeries: Abdominal (Recent Jagjit Fundoplication), Eye Surgery Respiratory Hx Respiratory Disorders: Yes Respiratory Disorders: Asthma, Chronic Bronchitis Cardiovascular Hx Cardiac Disorders: No Cardiac Disorders: High Cholesterol Neurological Hx Neurological Disorders: No Reproductive System : No Hx Reproductive Disorders: No Sexually Transmitted Disease: No HIV/AIDS: No Female Reproductive Disorders: Denies Genitourinary Hx Genitourinary Disorders: Yes Genitourinary Disorders: UTI-Chronic Gastrointestinal Hx Gastrointestinal Disorders: Yes (ESOPHAGEAL NARROWING) Gastrointestinal Disorders: Gastroesophageal Reflux, Hiatal Hernia, Ulcer Musculoskeletal Hx Musculoskeletal Disorders: Yes Musculoskeletal Disorders: Arthritis Endocrine Hx Endocrine Disorders: Yes Endocrine Disorders: Diabetes, Insulin dep HEENT HX ENT Disorders: Yes (GLASSES) Loss of Vision: Bilateral Hearing Impairment: Denies Cancer Hx Cancer: No Psychosocial Hx Psychiatric Problems: No Integumentary HX Skin/Integumentary Disorder: No Blood Transfusions Hx Blood Disorders: No Adverse Reaction to a Blood Tr: No Family Medical History Significant Family History: Asthma, CAD Over 55 Years Old, Diabetes Family Medial History: Arthritis 19 FATHER 19 MOTHER G8 SISTER Asthma 19 FATHER 19 MOTHER G8 SISTER Cataracts 19 MOTHER Diabetes mellitus 19 FATHER 19 MOTHER G8 SISTER FH: leukemia 19 FATHER Myocardial infarction 19 MOTHER Parkinson's disease 19 FATHER Thyroid disease 19 MOTHER Constitutional: chills, diaphoresis, No fever, malaise, weakness EENTM: dental problems, No blurred vision, No ear discharge, No epistaxis, No throat swelling Respiratory: dyspnea on exertion, No hemoptysis, phlegm, short of breath, No wheezing Cardiovascular: No chest pain, No edema, No palpitations Gastrointestinal: abdominal pain, No hematemesis, loss of appetite, nausea, No vomiting Genitourinary: frequency, No hematuria : No Musculoskeletal: back pain, joint pain, joint swelling, muscle stiffness Skin: No change in color, No change in hair/nails Psychiatric/Neurological: Denies Anxiety, Denies Depressed, Denies Seizure, Denies Tingling, Denies Weakness Other pt denies any heat or cold intolerance, denies any abnormal bruising. Physical Exam Vital Signs Vital Sign - Last 12Hours 07/28/16 15:29 Temp 99.2 Pulse 110 Resp 36 B/P (MAP) 153/105 Pulse Ox 94 O2 Delivery Nasal Cannula Capillary Refill : Less Than 3 Seconds General Appearance: Moderate Distress, Obese Eyes: Bilateral Eye EOMI, Bilateral Eye PERRL HEENT: Pharynx Normal, No Scleral Icterus (L), No Scleral Icterus (R), Other ( poor dentition) Neck: Full Range of Motion, Non Tender, Supple Respiratory: Accessory Muscle Use, Crackles (at bases), Decreased Breath Sounds , Other (dullness to percussion at bases) Cardiovascular: No Edema, No Murmur, Tachycardia Gastrointestinal: Abnormal Bowel Sounds (decreased), Distended, Guarding, Other (bowel sounds present just under her left breast) Rectal: Deferred Back: No CVA Tenderness, No Vertebral Tenderness Extremity: Normal Range of Motion, Non Tender, No Calf Tenderness, No Pedal Edema Neurologic/Psychiatric: Alert, Oriented x3, No Motor/Sensory Deficits, Normal Mood/Affect, check airman II-XII Norm as Tested Skin: Normal Color, Cool, Damp, Diaphoresis Lymphatic: No Adenopathy (neck, axilla or groin) Data Review Labs Laboratory Tests 07/28/16 15:55: White Blood Count 11.6H, Red Blood Count 3.67L, Hemoglobin 9.2L, Hematocrit 30L , Mean Corpuscular Volume 81, Mean Corpuscular Hemoglobin 25, Mean Corpuscular Hemoglobin Concent 31L, Red Cell Distribution Width 18.1H, Platelet Count 510H, Mean Platelet Volume 9.4, Neutrophils (%) (Auto) 78H, Lymphocytes (%) (Auto) 15 , Monocytes (%) (Auto) 7, Eosinophils (%) (Auto) 0, Basophils (%) (Auto) 0, Neutrophils # (Auto) 9.1H, Lymphocytes # (Auto) 1.7, Monocytes # (Auto) 0.8, Eosinophils # (Auto) 0.0, Basophils # (Auto) 0.0, Sodium Level 137, Potassium Level 3.4L, Chloride Level 102, Carbon Dioxide Level 24, Anion Gap 11, Blood Urea Nitrogen 5L, Creatinine 0.73, Estimat Glomerular Filtration Rate > 60, BUN/ Creatinine Ratio 7, Glucose Level 234H, Calcium Level 9.1, Total Bilirubin 0.6, Aspartate Amino Transf (AST/SGOT) 46H, Alanine Aminotransferase (ALT/SGPT) 117H , Alkaline Phosphatase 109, Total Protein 7.2, Albumin 3.7, Lipase 5L Assessment/Plan Assessment/Plan Assessment/Plan 1. Gastric Distention 2. Bibasilar atelecasis 3. Constipation 4. DM II Pt had a CT which showed a very large gastric distention and bibasilar atelectasis worse on left compared to right. She also has not had BM in over 5 days. She had an NGT placed and confirmed with PCXR. She will be admitted, made NPO, IV fluids, pain control anti-emetics and given Dulcolax suppository. Will keep on O2 and monitor pulse Ox. She must use her IS at least 10x per hour while awake. NGT will be set to LIWS. Explained everything to pt and all questions answered to her satisfaction. VALERIA BOTELLO DO July 28, 2016 17:41
[2016-07-28] MEDS ORDERED: PANT40TA3 PO (17:47)
--- NOTE | 2016-07-28 17:55 | Diagnostic Imaging Report ---
INDICATION: Enteric tube placement. DISCUSSION: Single portable frontal view of the chest was obtained, comparison to 06/08/2016. Low lung volumes with bibasilar opacities, pneumonia is not excluded. Enteric tube tip is in the gastric antrum. Normal heart size. IMPRESSION: 1. Enteric tube tip in the gastric antrum. 2. Low lung volumes with bibasilar consolidation. Dictated by: Dictated on workstation # [id number]
[2016-07-28] MEDS ORDERED: BISACODYL 10 MG SUPP (DULCOLAX) PR ONE (17:59)
[2016-07-28] MEDS ORDERED: ONDANSETRON 4 MG/2 ML (SDV) Z0FRAN IVP PRN (18:00)
[2016-07-28] MEDS ORDERED: morphine INJ 4 MG/ML 1 ML (VIAL/SYRINGE) ONE (18:41)
[2016-07-28] MEDS: LACTATED RINGERS 1,000 ML IV SCH (18:53)
[2016-07-28] MEDS: morphine INJ 10 MG/ML 1ML (SYR OR VIAL) IVP PRN (18:57)
[2016-07-28 19:29] VITALS: BP 127/82
[2016-07-28] MEDS ORDERED: RT-ALBUTEROL/IPRATROPIUM 3 ML (DUONEB) VIAL INH PRN (21:15)
[2016-07-29] VITALS (9 sets, daily range): BP systolic 124–137; BP diastolic 6–90
[2016-07-29] MEDS: inSUlin (REGULAR) HUMAN 1 UNIT/0.01 ML (CHARGE PER UNIT) SC SCH ×5 (00:43→22:20)
[2016-07-29] MEDS: LACTATED RINGERS 1,000 ML IV SCH ×5 (02:23→22:20)
[2016-07-29 05:38] LABS: BASOPHILS % (AUTO) 0 % (0-10); EOSINOPHILS # (AUTO) 0.1 10^3/uL (0.0-0.3); EOSINOPHILS % (AUTO) 1 % (0-10); LYMPHOCYTES # (AUTO) 1.4 X 10^3 (1.0-4.0); LYMPHOCYTES % (AUTO) 13 % (12-44); MEAN CORPUSCULAR HEMOGLOBIN 25 PG (25-34); MEAN CORPUSCULAR HGB CONC 31 G/DL (32-36); MEAN CORPUSCULAR VOLUME 81 FL (80-99); MEAN PLATELET VOLUME 9.3 FL (7.4-10.4); MONOCYTES # (AUTO) 0.9 X 10^3 (0.0-1.0); MONOCYTES % (AUTO) 8 % (0-12); NEUTROPHILS # (AUTO) 8.7 X 10^3 (1.8-7.8); NEUTROPHILS % (AUTO) 79 % (42-75); PLATELET COUNT 436 10^3/uL (130-400); RED BLOOD COUNT 3.28 10^6/uL (4.35-5.85); RED CELL DISTRIBUTION WIDTH 17.7 % (10.0-14.5); WHITE BLOOD COUNT 11.1 10^3/uL (4.3-11.0)
[2016-07-29 06:23] LABS: ALANINE AMINOTRANSFERASE 91 U/L (0-55); ALBUMIN 3.1 G/DL (3.2-4.5); ANION GAP 12 MMOL/L (5-14); ASPARTATE AMINO TRANSFERASE 35 U/L (5-34); BILIRUBIN,TOTAL 0.5 MG/DL (0.1-1.0); BLOOD UREA NITROGEN 5 MG/DL (7-18); BUN/CREATININE RATIO 9; CALCIUM 8.4 MG/DL (8.5-10.1); CARBON DIOXIDE 21 MMOL/L (21-32); CHLORIDE 105 MMOL/L (98-107); CREATININE SERUM 0.56 MG/DL (0.60-1.30); GFR ESTIMATED > 60; GLUCOSE 160 MG/DL (70-105); POTASSIUM 3.4 MMOL/L (3.6-5.0); SODIUM 138 MMOL/L (135-145); TOTAL PROTEIN 6.1 G/DL (6.4-8.2)
[2016-07-29] MEDS: morphine INJ 10 MG/ML 1ML (SYR OR VIAL) IVP PRN ×4 (06:35→18:45)
[2016-07-29] MEDS: PANTOPRAZOLE 40 MG/10 ML (PROTONIX) VIAL IV SCH (07:38)
[2016-07-29] MEDS: BISACODYL 10 MG SUPP (DULCOLAX) PR SCH (07:38)
[2016-07-29] MEDS: RT-ALBUTEROL/IPRATROPIUM 3 ML (DUONEB) VIAL INH SCH ×3 (09:01→19:21)
--- NOTE | 2016-07-29 11:20 | Diagnostic Imaging Report ---
EXAM: Supine abdomen at 11:12 a.m. INDICATION: Abdominal pain. FINDINGS: 2 supine views were obtained. The previous CT abdomen/pelvis exam performed on 07/28/2016 noted marked distention of the stomach by gas. There was also a considerable amount of gas throughout both the large and small bowel. In the interval since the previous exam, an NG line has been inserted. The tip of the line overlies the body of the stomach. There is only little, if any, residual gas still present within the stomach. There is also much less distention of both the large and small bowel by gas than noted on the prior study. There is still a moderate amount of gas within transverse colon and the splenic flexure. There is no sign of a bowel obstruction. There is no mass, organomegaly or a pathological calcification evident. The osseous structures are intact. IMPRESSION: 1. The appearance of the abdomen and pelvis has improved considerably following the insertion of the NG tube. The stomach now appears to be decompressed and there is only a moderate amount of residual gas still present within the transverse colon and splenic flexure. There is no sign of a bowel obstruction. 2. No other abnormality is identified. Dictated by: Dictated on workstation # [id number]
--- NOTE | 2016-07-29 12:16 | Progress Note ---
Subjective Subjective/Events-last exam Pt seen and examined, appears to be more comfortable than yesterday. She still has moderate pain, but states her nause is very minimal. She had very small BM with the suppository she was given. She states she is "kind of" hungry. Review of Systems General: No Chills, No Night Sweats HEENT: No Head Aches, No Eye Pain Pulmonary: No Dyspnea, No Cough Cardiovascular: No: Chest Pain, Palpitations Gastrointestinal: Abdominal Pain, Nausea, No: Vomiting Genitourinary: No Dysuria, No Frequency Objective Exam Vital Signs Date Time Temp Pulse Resp B/P (MAP) Pulse Ox O2 Delivery O2 Flow Rate FiO2 07/29/16 09:01 96 07/29/16 08:04 98.8 86 20 126/6 94 07/29/16 03:59 98.8 91 20 128/78 92 07/29/16 00:00 98.7 83 20 124/77 92 07/28/16 21:00 97 07/28/16 19:40 97 07/28/16 19:40 97 07/28/16 19:29 99.5 90 20 127/82 95 07/28/16 18:12 88 18 98 07/28/16 15:29 99.2 110 36 153/105 94 Nasal Cannula I & O 07/29/16 07:00 Intake Total 1000 ml Output Total 400 ml Balance 600 ml Capillary Refill : Less Than 3 Seconds General Appearance: Mild Distress, Obese HEENT: Pharynx Normal, No Scleral Icterus (L), No Scleral Icterus (R), Other ( poor dentition) Respiratory: Accessory Muscle Use, Crackles (at bases), Decreased Breath Sounds , Other (dullness to percussion at bases) Cardiovascular: Regular Rate, Rhythm, No Edema, No Murmur Gastrointestinal: soft, no organomegaly, tenderness (mild, diffuse) Extremity: No Calf Tenderness, No Pedal Edema Neurologic/Psychiatric: Alert, Oriented x3, No Motor/Sensory Deficits, Normal 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, 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 Norm as Tested Skin: Normal Color, Cool, Damp Lymphatic: No Adenopathy (neck, axilla or groin) Results Lab Laboratory Tests 07/28/16 15:55: White Blood Count 11.6H, Red Blood Count 3.67L, Hemoglobin 9.2L, Hematocrit 30L , Mean Corpuscular Volume 81, Mean Corpuscular Hemoglobin 25, Mean Corpuscular Hemoglobin Concent 31L, Red Cell Distribution Width 18.1H, Platelet Count 510H, Mean Platelet Volume 9.4, Neutrophils (%) (Auto) 78H, Lymphocytes (%) (Auto) 15 , Monocytes (%) (Auto) 7, Eosinophils (%) (Auto) 0, Basophils (%) (Auto) 0, Neutrophils # (Auto) 9.1H, Lymphocytes # (Auto) 1.7, Monocytes # (Auto) 0.8, Eosinophils # (Auto) 0.0, Basophils # (Auto) 0.0, Sodium Level 137, Potassium Level 3.4L, Chloride Level 102, Carbon Dioxide Level 24, Anion Gap 11, Blood Urea Nitrogen 5L, Creatinine 0.73, Estimat Glomerular Filtration Rate > 60, BUN/ Creatinine Ratio 7, Glucose Level 234H, Calcium Level 9.1, Total Bilirubin 0.6, Aspartate Amino Transf (AST/SGOT) 46H, Alanine Aminotransferase (ALT/SGPT) 117H , Alkaline Phosphatase 109, Total Protein 7.2, Albumin 3.7, Lipase 5L 07/29/16 00:42: Glucometer 175H 07/29/16 04:37: Glucometer 158H 07/29/16 05:20: White Blood Count 11.1H, Red Blood Count 3.28L, Hemoglobin 8.3L, Hematocrit 27L , Mean Corpuscular Volume 81, Mean Corpuscular Hemoglobin 25, Mean Corpuscular Hemoglobin Concent 31L, Red Cell Distribution Width 17.7H, Platelet Count 436H, Mean Platelet Volume 9.3, Neutrophils (%) (Auto) 79H, Lymphocytes (%) (Auto) 13 , Monocytes (%) (Auto) 8, Eosinophils (%) (Auto) 1, Basophils (%) (Auto) 0, Neutrophils # (Auto) 8.7H, Lymphocytes # (Auto) 1.4, Monocytes # (Auto) 0.9, Eosinophils # (Auto) 0.1, Basophils # (Auto) 0.0, Sodium Level 138, Potassium Level 3.4L, Chloride Level 105, Carbon Dioxide Level 21, Anion Gap 12, Blood Urea Nitrogen 5L, Creatinine 0.56L, Estimat Glomerular Filtration Rate > 60, BUN /Creatinine Ratio 9, Glucose Level 160H, Calcium Level 8.4L, Total Bilirubin 0.5 , Aspartate Amino Transf (AST/SGOT) 35H, Alanine Aminotransferase (ALT/SGPT) 91H , Alkaline Phosphatase 116, Total Protein 6.1L, Albumin 3.1L 07/29/16 11:57: Glucometer 158H Assessment/Plan Assessment/Plan Assessment/Plan 1. Gastric Distention -seems to be improving, KUB shows decrease in intestinal gas, will order PCXR to look at stomach. Pt must ambulate. 2. Bibasilar atelecasis - continue IS use, coughing 3. Constipation - repeat dulcolax supp as needed 4. DM II - pt was placed on Insulin sliding scale. 5. Anemia - unsure etiology 6. Leukocytosis - probably reactive, is improving slightly.....most likely secondary to #2 NGT will be left on LIWS, if CXR looks better will clamp and try clears. Will probably keep pt one more day and let Dr. Talavera determine further care on Saturday. Explained everything to pt and all questions answered to her satisfaction. Clinical Quality Measures DVT/VTE Risk/Contraindication: Risk Factor Score Per Nursin RFS Level Per Nursing on Admit: 3=High VALERIA CONTRERAS DO July 29, 2016 12:16
--- NOTE | 2016-07-29 13:03 | Diagnostic Imaging Report ---
INDICATION: Post tube placement. TECHNIQUE: Single view chest 12:15 PM. CORRELATION STUDY: 07/28/2016 FINDINGS: Gastric tube is present, tip over the left upper quadrant likely in the region of the body of the stomach. Heart size remains enlarged. Vasculature is slightly prominent. Continued atelectasis and/or infiltrate along with effusion of the lung bases. IMPRESSION: 1. Gastric tube tip at the level of the body of the stomach. 2. Continued areas of atelectasis and/or infiltrate along with effusions of the lung bases. Stable cardiac enlargement. Dictated by: Dictated on workstation # [id number]
[2016-07-30] MEDS: morphine INJ 10 MG/ML 1ML (SYR OR VIAL) IVP PRN ×3 (01:10→20:06)
[2016-07-30 03:11] VITALS: BP 118/74
[2016-07-30] MEDS: inSUlin (REGULAR) HUMAN 1 UNIT/0.01 ML (CHARGE PER UNIT) SC SCH ×4 (05:18→20:54)
--- NOTE | 2016-07-30 07:16 | Diagnostic Imaging Report ---
CLINICAL INDICATION: Check gastric distention. EXAM: Portable chest x-ray upright view. COMPARISONS: Chest x-ray dated 07/29/2016. FINDINGS: There is at least moderate air distention of the colon with nasogastric or orogastric feeding tube seen with the distal portion and proximal port of the tube overlying the body/fundus portion of the stomach. There is stable elevation of left hemidiaphragm. There is also slight progression of air distention of colon and small bowel overlying the abdomen. There is stable increased opacification involving both lung bases which may represent atelectasis versus infiltrate. Stable cardiomegaly with no significant pulmonary vascular congestion. There is concern for small left pleural effusion. There is degenerative disease of the thoracolumbar spine. IMPRESSION: 1: There is progression of air distention of the stomach, colon and small bowel overlying the abdomen. Nasogastric or orogastric feeding tube is again seen which appears in good position. 2: Stable elevation of the left hemidiaphragm with bibasilar atelectasis versus infiltrate. 3: Cardiomegaly with no significant pulmonary vascular congestion. Dictated by: Dictated on workstation # [id number]
[2016-07-30] MEDS: BISACODYL 10 MG SUPP (DULCOLAX) PR SCH (07:17)
[2016-07-30] MEDS: PANTOPRAZOLE 40 MG/10 ML (PROTONIX) VIAL IV SCH (07:17)
[2016-07-30 07:58] VITALS: BP 127/79
--- NOTE | 2016-07-30 08:24 | Consultation-Cardiology ---
HPI-Cardiology Cardiology Consultation: Date of Consultation 07/30/16 Date of Admission 07/28/16 Attending Physician Buster Botello DO Admitting Physician Barbi White DO Consulting Physician ML BOND MD, FACP, FACC, [facility] [place], [facility] HPI: Chief Complaint: Reason for consultation: Chest discomfort 46 yo woman admitted with abdominal discomfort two days after being discharged from a Jagjit fundoplication of 07/25/16, diagnosed with marked gastric distention and pulmonary atelectasis, who has also had chest discomfort consisting of a feeling of burning or distention mostly in the L lower chest and that has persisted for more than 12 hours. This morning, it is better but not completely resolved. There is no radiation. It is mild to mod. It does not radiate. It is not associated with other features. She has not experienced it before. She denies exertional chest discomfort, but does have chronic exertional shortness of breath that is slowly progressive. She denies palp or syncope. She denies ankle swelling Review of Systems-Cardiology Review of Systems Constitutional: malaise, tiredness, No weight loss, No weight gain Eyes: No vision change Ears/Nose/Throat: No ear discharge, No nasal drainage, No recent hearing loss Respiratory: As described under HPI Cardiovascular: As described under HPI Gastrointestinal: As described under HPI Genitourinary: No dysuria, No hematuria, No urine frequency changes : No Musculoskeletal: No back pain, No joint pain Skin: No rash, No ulcerations Psychiatric/Neurological: No focal weakness, No seizure, No syncope Hematologic: No bleeding abnormalities GYB-Xebknr-Sadpfk Hx Patient Social History Alcohol Use: Denies Use Recreational Drug Use: No Smoking Status: Never a Smoker 2nd Hand Smoke Exposure: No Recent Foreign Travel: No Recent Infectious Disease Expo: No Hospitalization with Isolation: Denies Physical Abuse Screen: No Sexual Abuse: No Immunizations Up To Date Tetanus Booster (TDap): Unknown Date of Pneumonia Vaccine: July 28, 2009 Date of Influenza Vaccine: Jan 10, 2016 Past Medical History PMH As described under Assessment. Family Medical History Family History: Arthritis 19 FATHER 19 MOTHER G8 SISTER Asthma 19 FATHER 19 MOTHER G8 SISTER Cataracts 19 MOTHER Diabetes mellitus 19 FATHER 19 MOTHER G8 SISTER FH: leukemia 19 FATHER Myocardial infarction 19 MOTHER Parkinson's disease 19 FATHER Thyroid disease 19 MOTHER Allergies and Home Medications Allergies Coded Allergies: Penicillins (Verified Allergy, Mild, 12/31/16) Home Medications Acetaminophen 500 Mg Tablet, 1,000 MG PO Q6H PRN for PAIN, (Reported) Cetirizine HCl 10 Mg Capsule, 10 MG PO DAILY, (Reported) Guaifenesin 400 Mg Tablet, 400 MG PO BID, (Reported) Hydrocodone/Acetaminophen 473 Ml Solution, 15 ML PO Q4H PRN for ABDOMINAL PAIN, #480 Prescribed by: ADAN COLLIER on 07/26/16 0955 Hyoscyamine Sulfate 0.125 Mg Tablet, 0.125 MG SL AC PRN for CHOKING, (Reported) Insulin Glargine,Hum.rec.anlog 100 Unit/1 Ml Insuln.pen, 56 UNITS SC HS, ( Reported) Metformin HCl 1,000 Mg Tablet, 1,000 MG PO BID, (Reported) Ondansetron HCl 8 Mg Tablet, 8 MG PO TID PRN for NAUSEA, (Reported) Physical Exam-Cardiology Physical Exam Vital Signs/I&O Vital Sign - Last 12Hours 07/29/16 07/29/16 07/30/16 07/30/16 22:09 23:15 03:11 07:58 Temp 99.7 98.8 97.9 Pulse 91 85 89 Resp 24 20 20 B/P (MAP) 137/87 118/74 127/79 Pulse Ox 95 94 96 O2 Flow Rate 2.00 2.00 Intake and Output 07/30/16 00:00 Intake Total 1980 ml Output Total 1175 ml Balance 805 ml Capillary Refill : Less Than 3 Seconds Constitutional: AAO x 3, well-developed, well-nourished HEENT: PERRL, other (nasogastric tube in place; marked dental caries), EOMI, No xanthelasmas are seen Neck: non-tender, carotid pulses are 2 + bilaterally, with good upstrokes Respiratory: No accessory muscle use, lungs clear to auscultation Cardiovascular: regular rate-rhythm, S1 and S2, systolic murmur (faint HUBER at cardiac base) Gastrointestinal: distended, No guarding, No audible bowel sounds Extremities: swelling (mild bilat leg swelling), No clubbing, No cyanosis Neurologic/Psychiatric: oriented x 3, grossly intact, power is 5/5 both on sides Skin: No rash on exposed areas, No ulcerations on exposed areas Lymphatic: no adenopathy Data Review Labs Laboratory Tests 07/29/16 11:57: Glucometer 158H 07/29/16 18:47: Glucometer 282H 07/29/16 19:18: Troponin I < 0.30 07/29/16 21:53: Glucometer 234H 07/30/16 00:55: Troponin I < 0.30 07/30/16 05:01: Glucometer 192H Laboratory Tests 07/28/16 15:55 07/29/16 05:20 A/P-Cardiology Assessment/Admission Diagnosis Chest discomfort, likely due to post-op gastric distention and ileus; no evidence of ACS Gastric distention and ileus post Jagjit fundoplication of 07/25/16 Anemia, likely due to blood loss following Jagjit fundoplication of 07/25/16 DM II Obesity with BMI approx 34 Fam h/o early CAD (father and mother in their 40s) Discussion and Recomendations * Echo * Repeat ECG * Replenish K * Follow labs * I had a detailed discussion with her regarding our findings and plans * Recommend cor risk stratification, given risk factors, as outpatient once over current acute issues * We also recommend management of anemia and atelectasis (to be directed by the Surgical Service that will decide if Hospitalist or Medical Service consultation is needed) * I discussed cardiac risk factor modification with the patient Clinical Quality Measures DVT/VTE Risk/Contraindication: Risk Factor Score Per Nursin RFS Level Per Nursing on Admit: 3=High ML BOND MD FACP FAC [facility]S July 30, 2016 08:24
[2016-07-30] MEDS ORDERED: MAGNESIUM 1 GM/100 ML IVPB 100 ML IV NR (08:41)
[2016-07-30] MEDS: RT-ALBUTEROL/IPRATROPIUM 3 ML (DUONEB) VIAL INH SCH ×3 (08:44→21:44)
[2016-07-30] MEDS: LACTATED RINGERS 1,000 ML IV SCH ×3 (09:30→19:45)
[2016-07-30] MEDS: POTASSIUM CL 10MEQ/50ML IVPB 50 ML IV SCH ×2 (09:49→10:22)
[2016-07-30 12:04] VITALS: BP 128/88
--- NOTE | 2016-07-30 14:43 | Progress Note-Standard ---
Standard Progress Note Progress Notes/Assess & Plan Progress/Assessment & Plan 07/30/16:readmitted over the weekend with substernal discomfort and gastric dilatation. Imaging shows atelectasis , more pronounced on the left base along with a dilated stomach and changes suggestive postoperative ileus. Nasogastric tube removed this morning. Tolerating clear liquids. Pro-kinetic drugs would be useful and the patient reports adverse effect with Reglan. Therefore, erythromycin base would be used instead. Final Diagnosis ppostoperative ileus. Atelectasis ADAN COLLIER MD July 30, 2016 2:43 pm
[2016-07-30 15:43] VITALS: BP 138/73
[2016-07-30] MEDS: ERYTHROMYCIN BASE 250 MG TAB/CAP (NON-FORMULARY) PO SCH (16:37)
[2016-07-30 19:15] VITALS: BP 136/77
[2016-07-31] VITALS: BP 117/65
[2016-07-31] MEDS: ERYTHROMYCIN BASE 250 MG TAB/CAP (NON-FORMULARY) PO SCH ×4 (00:12→18:27)
[2016-07-31 04:00] VITALS: BP 159/88
[2016-07-31] MEDS: morphine INJ 10 MG/ML 1ML (SYR OR VIAL) IVP PRN ×2 (05:06→17:58)
[2016-07-31] MEDS: inSUlin (REGULAR) HUMAN 1 UNIT/0.01 ML (CHARGE PER UNIT) SC SCH ×4 (06:10→21:17)
[2016-07-31] MEDS: LACTATED RINGERS 1,000 ML IV SCH ×2 (06:10→21:14)
[2016-07-31 06:14] LABS: BASOPHILS % (AUTO) 0 % (0-10); EOSINOPHILS # (AUTO) 0.1 10^3/uL (0.0-0.3); EOSINOPHILS % (AUTO) 1 % (0-10); LYMPHOCYTES # (AUTO) 1.3 X 10^3 (1.0-4.0); LYMPHOCYTES % (AUTO) 14 % (12-44); MEAN CORPUSCULAR HEMOGLOBIN 25 PG (25-34); MEAN CORPUSCULAR HGB CONC 31 G/DL (32-36); MEAN CORPUSCULAR VOLUME 80 FL (80-99); MEAN PLATELET VOLUME 9.3 FL (7.4-10.4); MONOCYTES # (AUTO) 0.6 X 10^3 (0.0-1.0); MONOCYTES % (AUTO) 6 % (0-12); NEUTROPHILS # (AUTO) 7.1 X 10^3 (1.8-7.8); NEUTROPHILS % (AUTO) 79 % (42-75); PLATELET COUNT 460 10^3/uL (130-400); RED CELL DISTRIBUTION WIDTH 17.3 % (10.0-14.5)
[2016-07-31 06:42] LABS: ALANINE AMINOTRANSFERASE 47 U/L (0-55); ALBUMIN 2.9 G/DL (3.2-4.5); ANION GAP 9 MMOL/L (5-14); ASPARTATE AMINO TRANSFERASE 11 U/L (5-34); BILIRUBIN,TOTAL 0.3 MG/DL (0.1-1.0); BLOOD UREA NITROGEN 3 MG/DL (7-18); BUN/CREATININE RATIO 5; CALCIUM 8.5 MG/DL (8.5-10.1); CARBON DIOXIDE 23 MMOL/L (21-32); CHLORIDE 106 MMOL/L (98-107); CREATININE SERUM 0.57 MG/DL (0.60-1.30); GFR ESTIMATED > 60; GLUCOSE 207 MG/DL (70-105); MAGNESIUM 1.6 MG/DL (1.8-2.4); POTASSIUM 3.4 MMOL/L (3.6-5.0); SODIUM 138 MMOL/L (135-145); TOTAL PROTEIN 6.1 G/DL (6.4-8.2)
[2016-07-31] MEDS: PANTOPRAZOLE 40 MG/10 ML (PROTONIX) VIAL IV SCH (07:54)
[2016-07-31 08:09] VITALS: BP 137/90
--- NOTE | 2016-07-31 08:14 | Progress Note-Standard ---
Standard Progress Note Progress Notes/Assess & Plan Progress/Assessment & Plan 07/30/16:readmitted over the weekend with substernal discomfort and gastric dilatation. Imaging shows atelectasis , more pronounced on the left base along with a dilated stomach and changes suggestive postoperative ileus. Nasogastric tube removed this morning. Tolerating clear liquids. Pro-kinetic drugs would be useful and the patient reports adverse effect with Reglan. Therefore, erythromycin base would be used instead. 07/31/16:continues to improve. Will advance diet slowly Final Diagnosis postoperative ileus. Atelectasis ADAN COLLIER MD July 31, 2016 8:14 am
[2016-07-31] MEDS: RT-ALBUTEROL/IPRATROPIUM 3 ML (DUONEB) VIAL INH SCH (08:44)
[2016-07-31] MEDS: BISACODYL 10 MG SUPP (DULCOLAX) PR SCH (09:15)
[2016-07-31] MEDS: MILK OF MAGNESIA 400 MG/5 ML 30 ML UDC PO SCH ×3 (09:15→20:08)
[2016-07-31] MEDS: POTASSIUM CL 10MEQ/50ML IVPB 50 ML IV SCH ×4 (09:15→12:26)
--- NOTE | 2016-07-31 10:50 | Progress Note-Cardiology ---
Cardiology SOAP Progress Note Subjective: No cp or palp or syncope Feels much better compared to yesterday Objective: I&O/Vital Signs Vital Sign - Last 12Hours 07/31/16 07/31/16 07/31/16 07/31/16 08:09 08:44 08:44 12:47 Temp 97.2 96.9 Pulse 86 104 Resp 20 20 B/P (MAP) 137/90 146/80 Pulse Ox 95 94 94 92 07/31/16 16:00 Temp 98.5 Pulse 93 Resp 18 B/P (MAP) 144/94 Pulse Ox 96 Intake and Output 07/31/16 00:00 Intake Total 3250 ml Output Total 1250 ml Balance 2000 ml Weight (Pounds): 199 Weight (Ounces): 11.0 Weight (Calculated Kilograms): 90.685982 Constitutional: AAO x 3, well-developed, well-nourished Respiratory: No accessory muscle use, lungs clear to auscultation Cardiovascular: regular rate-rhythm, S1 and S2, systolic murmur (faint HUBER at cardiac base) Gastrointestional: distended, No guarding, No audible bowel sounds Extremities: swelling (mild bilat leg swelling), No clubbing, No cyanosis Neurologic/Psychiatric: oriented x 3, grossly intact, power is 5/5 both on sides Skin: No rash on exposed areas, No ulcerations on exposed areas Results/Procedures: Labs Laboratory Tests 07/30/16 20:34: Glucometer 241H 07/31/16 05:05: Glucometer 175H 07/31/16 06:00: White Blood Count 9.0, Red Blood Count 3.10L, Hemoglobin 7.7L, Hematocrit 25L, Mean Corpuscular Volume 80, Mean Corpuscular Hemoglobin 25, Mean Corpuscular Hemoglobin Concent 31L, Red Cell Distribution Width 17.3H, Platelet Count 460H, Mean Platelet Volume 9.3, Neutrophils (%) (Auto) 79H, Lymphocytes (%) (Auto) 14 , Monocytes (%) (Auto) 6, Eosinophils (%) (Auto) 1, Basophils (%) (Auto) 0, Neutrophils # (Auto) 7.1, Lymphocytes # (Auto) 1.3, Monocytes # (Auto) 0.6, Eosinophils # (Auto) 0.1, Basophils # (Auto) 0.0, Sodium Level 138, Potassium Level 3.4L, Chloride Level 106, Carbon Dioxide Level 23, Anion Gap 9, Blood Urea Nitrogen 3L, Creatinine 0.57L, Estimat Glomerular Filtration Rate > 60, BUN /Creatinine Ratio 5, Glucose Level 207H, Calcium Level 8.5, Magnesium Level 1.6L , Total Bilirubin 0.3, Aspartate Amino Transf (AST/SGOT) 11, Alanine Aminotransferase (ALT/SGPT) 47, Alkaline Phosphatase 93, Total Protein 6.1L, Albumin 2.9L 07/31/16 10:54: Glucometer 267H 07/31/16 16:17: Glucometer 167H Laboratory Tests 07/31/16 06:00 A/P: Assessment: Chest discomfort, likely due to post-op gastric distention and ileus; no evidence of ACS Gastric distention and ileus post Jagjit fundoplication of 07/25/16 Anemia, likely due to blood loss following Jagjit fundoplication of 07/25/16 Echo of 07/30/16: LVEF 65%, no significant valvular regurg or stenosis, PASP within normal limits DM II Obesity with BMI approx 34 Fam h/o early CAD (father and mother in their 40s) Plan: * Echo pending * Repeat ECG * Replenish K and Mag * Worsening anemia - management per surgical services * Follow labs * I had a detailed discussion with her regarding our findings and plans * Recommend cor risk stratification, given risk factors, as outpatient once over current acute issues * We also recommend management of anemia and atelectasis (to be directed by the Surgical Service that will decide if Hospitalist or Medical Service consultation is needed) * Dr. Askew has discussed cardiac risk factor modification with the patient Physician Assessment Physician Assessment Lungs: good bilat air entry Cor: reg A&R * As documented in our note above * I spoke with her and discussed her CV work up * I advised risk factor modification and outpatient f/u * I answered her questions MANUEL MURDOCK FMD TEACHER July 31, 2016 10:50 ML ASKEW MD FACP [facility] July 31, 2016 18:43
[2016-07-31 12:47] VITALS: BP 146/80
[2016-07-31] MEDS: MAGNESIUM 1 GM/100 ML IVPB 100 ML IV SCH ×2 (13:51→16:21)
[2016-07-31 16:00] VITALS: BP 144/94
[2016-07-31] MEDS ORDERED: MAGNESIUM 1 GM/100 ML IVPB 100 ML IV ONE (16:16)
[2016-07-31 19:30] VITALS: BP 138/84
[2016-08-01] MEDS: ERYTHROMYCIN BASE 250 MG TAB/CAP (NON-FORMULARY) PO SCH ×4 (00:02→17:21)
[2016-08-01] MEDS: morphine INJ 10 MG/ML 1ML (SYR OR VIAL) IVP PRN ×2 (00:02→17:25)
[2016-08-01 00:05] VITALS: BP 137/86
[2016-08-01] MEDS: inSUlin (REGULAR) HUMAN 1 UNIT/0.01 ML (CHARGE PER UNIT) SC SCH ×3 (06:13→16:14)
[2016-08-01 08:00] VITALS: BP 152/95
[2016-08-01] MEDS: MILK OF MAGNESIA 400 MG/5 ML 30 ML UDC PO SCH ×2 (09:09→11:39)
[2016-08-01] MEDS: BISACODYL 10 MG SUPP (DULCOLAX) PR SCH (09:09)
--- NOTE | 2016-08-01 09:09 | ECHOCARDIOGRAPHY REPORT ---
DATE OF SERVICE: 07/30/2016 ECHOCARDIOGRAPHY REPORT ORDERING PHYSICIAN: Dr. Askew. PRIMARY PHYSICIAN: Dr. White. ATTENDING PHYSICIAN: Dr. Botello. CLINICAL DIAGNOSIS: Chest pain. MEASUREMENTS: Left atrium 3.9. Aortic root 3.3. LV diameter, diastolic 3.5. IVS thickness, diastolic 0.8. LVPW thickness, diastolic is 1. DESCRIPTION: Two-dimensional echocardiography showed normal global left ventricular systolic function with normal regional wall motion. Aortic, mitral and tricuspid valve leaflets show good leaflet excursion. Aortic valve leaflet structure is not very well visualized. There does not appear to be any significant pericardial effusion. Doppler imaging did not show significant valvular regurgitation or stenosis. Pulmonary artery systolic pressure is estimated to be within normal limits. Good subcostal views are not available. The study is not suitable for evaluation for intracardiac shunt. CONCLUSIONS: 1. Normal global left ventricular systolic function with ejection fraction approximately 65%. 2. No significant valvular regurgitation or stenosis. 3. Pulmonary artery systolic pressure is estimated to be within normal limits. Job ID: [id number] DocumentID: [id number] Dictated Date: 07/31/2016 17:09:55 Furniture Refinisher Date: 08/01/2016 01:43:14 Dictated By: ML ASKEW MD, MA, FACP, FACC,
[2016-08-01] MEDS: PANTOPRAZOLE 40 MG/10 ML (PROTONIX) VIAL IV SCH (09:10)
[2016-08-01] MEDS: LACTATED RINGERS 1,000 ML IV SCH (09:10)
--- NOTE | 2016-08-01 09:44 | Progress Note-Cardiology ---
Cardiology SOAP Progress Note Subjective: She feels well today. Denies cp or palp or syncope Wishes to go home Objective: I&O/Vital Signs Vital Sign - Last 12Hours 08/01/16 08/01/16 08/01/16 00:05 07:26 08:00 Temp 97.9 98.3 Pulse 87 57 Resp 18 18 B/P (MAP) 137/86 152/95 Pulse Ox 94 94 94 Intake and Output 08/01/16 00:00 Intake Total 1710 ml Output Total 1600 ml Balance 110 ml Weight (Pounds): 199 Weight (Ounces): 11.0 Weight (Calculated Kilograms): 90.016521 Constitutional: AAO x 3, well-developed, well-nourished Respiratory: No accessory muscle use, lungs clear to auscultation Cardiovascular: regular rate-rhythm, S1 and S2, systolic murmur (faint HUBER at cardiac base) Gastrointestional: distended, No guarding, No audible bowel sounds Extremities: swelling (mild bilat leg swelling), No clubbing, No cyanosis Neurologic/Psychiatric: oriented x 3, grossly intact, power is 5/5 both on sides Skin: No rash on exposed areas, No ulcerations on exposed areas Results/Procedures: Labs Laboratory Tests 07/31/16 10:54: Glucometer 267H 07/31/16 16:17: Glucometer 167H 07/31/16 20:56: Glucometer 219H 08/01/16 05:24: Glucometer 189H Laboratory Tests 07/31/16 06:00 A/P: Assessment: Chest discomfort, likely due to post-op gastric distention and ileus; no evidence of ACS Gastric distention and ileus post Jagjit fundoplication of 07/25/16 Marked postop anemia, likely due to blood loss following Jagjit fundoplication of 07/25/16; this is being managed by the Surgical Service Echo of 07/30/16: LVEF 65%, no significant valvular regurg or stenosis, PASP within normal limits DM II Obesity with BMI approx 34 Fam h/o early CAD (father and mother in their 40s) Mild hypokalemia on 07/31/16, treated on 07/31/16 Plan: * Cardiac status is stable. We recommend outpatient card f/u, given cardiac risk factors. Ok for discharge from cardiac standpoint when considered stable form Surgical and Medical standpoints ML BOND MD FACP FAC [facility] August 01, 2016 09:44
[2016-08-01 09:55] LABS: MEAN PLATELET VOLUME 10.2 FL (7.4-10.4); RED BLOOD COUNT 3.6 10^6/uL (4.35-5.85); RED CELL DISTRIBUTION WIDTH 17.6 % (10.0-14.5); WHITE BLOOD COUNT 9.5 10^3/uL (4.3-11.0)
[2016-08-01 16:00] VITALS: BP 143/93
--- NOTE | 2016-08-01 17:54 | Progress Note-Standard ---
Standard Progress Note Progress Notes/Assess & Plan Progress/Assessment & Plan 07/30/16:readmitted over the weekend with substernal discomfort and gastric dilatation. Imaging shows atelectasis , more pronounced on the left base along with a dilated stomach and changes suggestive postoperative ileus. Nasogastric tube removed this morning. Tolerating clear liquids. Pro-kinetic drugs would be useful and the patient reports adverse effect with Reglan. Therefore, erythromycin base would be used instead. 07/31/16:continues to improve. Will advance diet slowly 08/01/16: Tolerating soft diet. Home Final Diagnosis post-op ileus ADAN COLLIER MD August 01, 2016 5:54 pm
[2016-08-01] MEDS ORDERED: ERYT-99 PO (17:57)
--- NOTE | 2016-08-01 18:02 | Discharge Inst-Simple/Standard ---
Discharge Inst-Standard Discharge Medications New, Converted or Re-Newed RX: RX on Chart Patient Instructions/Follow Up Plan of Care/Instructions/FU: Follow up as scheduled before Activity as Tolerated: Yes Discharge Diet: Soft Diet ADAN COLLIER MD August 01, 2016 6:02 pm
[2016-08-01 18:20] VITALS: BP 143/93
--- NOTE | 2016-08-02 08:11 | Physician Query ---
PQ-Further Specificity Admission/Discharge Admission Date: July 28, 2016 at 18:13 Discharge Date: August 01, 2016 at 18:20 The medical record reflects the following clinical scenario: History/Risk Factors: S/P Jagjit Fundiplication 3 days prior to admit Clinical Findings: Ileus, intestinal dilation, atelectasis Treatment: NGT decompression Question: Can you further specify postop ileus per the clinical indicators above? Please document below. 1. Postop ileus resulting from surgery or exacerbated by surgery 2. Postop ileus meaning ileus after surgery but not caused by the surgery 3. Other, with explanation of the clinical findings. 4. Clinically undetermined, no explanation for the clinical findings. PHYSICIAN RESPONSE Can you specify per above: 2 Please remember a lack of response to the above will prompt a phone page by CDI/ coding staff. In responding to this query, please exercise your independent professional judgment. The purpose of this communication is to more accurately reflect the complexity of your patients condition. The fact that a question is asked does not imply that any particular answer is desired or expected. Thank you for your timely response to this clarification. Requestors name: Naldo THIS PHYSICIAN QUERY FORM IS A PERMANENT PART OF THE MEDICAL RECORD NALDO CAMPOS August 02, 2016 08:11 ADAN COLLIER MD August 02, 2016 12:50
--- NOTE | 2016-08-02 08:29 | DISCHARGE SUMMARY ---
DATE OF SERVICE: 08/01/2016 DIAGNOSES: 1. Postoperative gastric distention. 2. Atelectasis. This lady underwent robotic-assisted fundoplication to address severe gastroesophageal reflux on 07/25/2016 and discharged the next day in good condition. She developed gastric distention, resulting in readmission via the Emergency Room. This has since resolved and with prokinetic therapy, using erythromycin, she has been able to tolerate a soft diet. I have encouraged her to continue this and return for followup that has been scheduled for 3 weeks. Job ID: [id number] DocumentID: [id number] Dictated Date: 08/01/2016 17:53:28 Occupational Therapist Aide Date: 08/02/2016 08:28:39 Dictated By: ADAN COLLIER MD MTDD
== END 2016-08-01 18:20 | disposition home or self-care (01) | DRG 327 ==
LOC: EDUNIT# 15:29 → ER 15:31 → UNDOADMOB 17:51 → 4TH 17:51 → OBSVTOIN 17:59 → INTOOBSV 17:59 → 4TH 18:13 → OBSVTOIN 18:13 → 4TH 19:16
PROVIDERS: ADMIT Surgery; ATTEND Surgery
PROC: 0D9 Gastrointestinal System, Drainage (ICD-10-PCS; principal; 2016-07-28)
DX: K56.7 Ileus, unspecified (principal); J98.11 Atelectasis; K59.00 Constipation, unspecified; K21.9 Gastro-esophageal reflux disease without esophagitis; K44.9 Diaphragmatic hernia without obstruction or gangrene; E11.9 Type 2 diabetes mellitus without complications; D62 Acute posthemorrhagic anemia; E87.6 Hypokalemia; E66.9 Obesity, unspecified; Z68.34 Body mass index [BMI] 34.0-34.9, adult; Z82.49 Family history of ischemic heart disease and other diseases of the circulatory system; Z79.4 Long term (current) use of insulin
CPT/HCPCS: 36415; 71010; 71250; 74000; 74176; 80053; 82962; 83690; 83735; 84484; 85025; 85027; 93005; 93306; 94640; 94760

== ENCOUNTER → 2016-09-18 | Outpatient (CLI) | payer OTHER ==
[~2016-09-18] MED LIST changes: +ERYT-99 PO
--- NOTE | 2016-09-18 10:43 | Diagnostic Imaging Report ---
PA and lateral views of the chest. INDICATION: Pneumonia. COMPARISON: 07/30/2016. FINDINGS: The lungs are clear. The heart size is normal. No effusion or pneumothorax. The mediastinum and hermilo appear unremarkable. When compared to the prior exam, the previously seen infiltrates have resolved. IMPRESSION: Unremarkable exam. Dictated by: Dictated on workstation # [id number]
== END ==
LOC: RAD 09:15
PROVIDERS: ATTEND Nurse Practitioner Family
DX: J18.9 Pneumonia, unspecified organism (principal)
CPT/HCPCS: 71020

== ENCOUNTER 2016-12-02 21:55 | Emergency (ER) | payer OTHER ==
[~2016-12-02] VITALS: Ht 160 cm; Wt 75.7 kg
[~2016-12-02 21:55] MED LIST changes: +HYOS-20 SL; -HYOS0.1216 SL
--- OUTSIDE RECORDS SUMMARY | 2016-12-02 22:02 | XMS REPORT ---
Author Author CHERRY MARTIN Organization [facility] Address [address] [place] [address] Care Team Providers Care Ferryboat Helper Name Role Phone MARIO CHERRY Unavailable PROBLEMS Type Condition ICD9-CM Code [id number] Code Onset Dates Condition Status SNOMED Code Problem Type 2 diabetes mellitus without complication E11.9 Active 42447951 Problem detention current use of insulin Z79.4 Active 188948874 Problem Esophageal spasm K22.4 Active 22697595 Problem Type 2 diabetes mellitus without complications E11.9 Active 301174650 Problem Seasonal allergic rhinitis, unspecified allergic rhinitis trigger J30.2 Active 225794651 Problem Other chronic pain G89.29 Active 39034159 Problem Type 2 diabetes mellitus with hyperglycemia E11.65 Active 076370099 Problem Gastroesophageal reflux disease with esophagitis K21.0 Active 053988940 Problem Ulcer of esophagus without bleeding K22.10 Active 22448742 ALLERGIES Substance Reaction Event Type Date Status Reglan dizziness Drug Allergy Apr, Active Penicillin V Potassium Unknown Drug Allergy Apr, Active SOCIAL HISTORY Never Assessed PLAN OF CARE Activity Details Follow Up 4 Weeks Reason:dm2 uncontrolled VITAL SIGNS Height 63 in 2016-04-19 Weight 197.1 lbs 2016-04-19 Temperature 98.1 degrees Fahrenheit 2016-04-19 Heart Rate 90 bpm 2016-04-19 Respiratory Rate 22 2016-04-19 BMI 34.91 kg/m2 2016-04-19 Blood pressure systolic 132 mmHg 2016-04-19 Blood pressure diastolic 98 mmHg 2016-04-19 MEDICATIONS Medication Instructions Dosage Frequency Start Date End Date Duration Status Tessalon Perles 100 mg Orally Three times a day 1 capsule as needed 8h Apr, Active MetFORMIN HCl ER 500 MG Orally twice a day 2 tablets 12h 13 Dec, 2015 30 day(s) Active Albuterol Sulfate HFA 108 (90 Base) MCG/ACT Inhalation every 4 hrs 2 puffs as needed 4h Active Tylenol 325 MG Orally every 6 hrs 2 tablets as needed 6h Active Lantus SoloStar 100 UNIT/ML Subcutaneous Once a day 47 units 24h 63 Active Zyrtec Allergy 10 MG Orally Once a day 1 tablet 24h Active Protonix 40 mg Orally 2 times a day 1 tablet 12h 30 days Active Ankit Contour Test 1 In Vitro 2 times a day as directed 12h 26 Apr, 2015 Active RESULTS Name Result Date Reference Range A1C (IN HOUSE) 2016-04-19 A1C IN HOUSE 9.3 4.3 - 5.6 % Previous A1c 8.5 Lot [id number] Exp date 01/2018 MICROALBUMIN, URINE (IN HOUSE) 2016-04-19 MICROALBUMIN abnormal Lot # [id number] Exp date 04/2017 Clarity clear Color yellow ALB 80 CRE 200 A:C (IN HOUSE) 30-300 Control + Control Lot # Exp MICROALBUMIN/CREATININE RATIO, URINE 2016-04-19 Creatinine, Urine 110.4 Not Estab. Microalbumin, Urine 42.4 Not Estab. Microalb/Creat Ratio 38.4 0.0-30.0 PROCEDURES Procedure Date Ordered Result Body Site GLYCATED HEMOGLOBIN TEST Apr 19, 2016 ASSAY OF URINE CREATININE Apr 19, 2016 MICROALBUMIN, SEMIQUANT Apr 19, 2016 MICROALBUMIN, QUANTITATIVE Apr 19, 2016 IMMUNIZATIONS No Known Immunizations MEDICAL (GENERAL) HISTORY Type Description Date Medical History type II diabetes Medical History allergies Medical History asthma Medical History hyperlipidemia Medical History hiatal hernia Surgical History tear duct surgery as an Surgical History Left knee surgery 10/2012 Surgical History hital hernia repair 07/25/16 Hospitalization History surgery Hospitalization History ER for a UTI 11/27/15 Hospitalization History Upper abdominal pain, Ileus-[facility] 06/08/16
--- OUTSIDE RECORDS SUMMARY | 2016-12-02 22:03 | XMS REPORT ---
Author Author CHERRY MARTIN Organization [facility] Address [address] [place] [address] Care Team Providers Care Road Roller Operator Hot Mix Name Role Phone MARIO CHERRY Unavailable PROBLEMS Type Condition ICD9-CM Code OAX33-MH Code Onset Dates Condition Status SNOMED Code Problem Type 2 diabetes mellitus without complication E11.9 Active 28708590 Problem halfway current use of insulin Z79.4 Active 439486233 Problem Esophageal spasm K22.4 Active 27810535 Problem Type 2 diabetes mellitus without complications E11.9 Active 908698709 Problem Seasonal allergic rhinitis, unspecified allergic rhinitis trigger J30.2 Active 269999486 Problem Other chronic pain G89.29 Active 50913196 Problem Type 2 diabetes mellitus with hyperglycemia E11.65 Active 558418370 Problem Gastroesophageal reflux disease with esophagitis K21.0 Active 857595426 Problem Ulcer of esophagus without bleeding K22.10 Active 91712002 ALLERGIES Substance Reaction Event Type Date Status Reglan dizziness Drug Allergy Mar, Active Penicillin V Potassium Unknown Drug Allergy Mar, Active SOCIAL HISTORY No smoking Hx information available PLAN OF CARE VITAL SIGNS Height 63 in 2016-04-06 Weight 205 lbs 2016-04-06 Temperature 98.0 degrees Fahrenheit 2016-04-06 Heart Rate 78 bpm 2016-04-06 Respiratory Rate 18 2016-04-06 BMI 36.31 kg/m2 2016-04-06 Blood pressure systolic 130 mmHg 2016-04-06 Blood pressure diastolic 80 mmHg 2016-04-06 MEDICATIONS Medication Instructions Dosage Frequency Start Date End Date Duration Status Zyrtec Allergy 10 MG Orally Once a day 1 tablet 24h Active Tylenol 325 MG Orally every 6 hrs 2 tablets as needed 6h Active Ankit Contour Test 1 In Vitro 2 times a day as directed 12h Apr, Active MetFORMIN HCl ER 500 MG Orally twice a day 2 tablets 12h 13 Dec, 2015 30 day(s) Active Levaquin 500 MG Orally Once a day 1 tablet 24h Mar, Apr, 10 day(s) Active PredniSONE 20 mg Orally Once a day 2 tablets 24h Mar, Apr, 05 days Active Protonix 40 mg Orally 2 times a day 1 tablet 12h 30 days Active Lantus SoloStar 100 UNIT/ML Subcutaneous Once a day 47 units 24h 63 Active RESULTS No Results PROCEDURES Procedure Date Ordered Related Diagnosis Body Site Office Visit, Est Pt., Level 3 Apr 06, 2016 IMMUNIZATIONS No Known Immunizations
--- OUTSIDE RECORDS SUMMARY | 2016-12-02 22:03 | XMS REPORT ---
Author Author ELSA POLK Organization [facility] Address [address] [place] [address] Care Team Providers Care Skip Hoist Operator Name Role Phone ELSA POLK Unavailable PROBLEMS Type Condition ICD9-CM Code [id number]-[id number] Code Onset Dates Condition Status SNOMED Code Problem Type 2 diabetes mellitus without complication E11.9 Active 44044678 Problem penitentiary current use of insulin Z79.4 Active 463201315 Problem Esophageal spasm K22.4 Active 49868265 Problem Type 2 diabetes mellitus without complications E11.9 Active 092867211 Problem Seasonal allergic rhinitis, unspecified allergic rhinitis trigger J30.2 Active 961410989 Problem Other chronic pain G89.29 Active 71154813 Problem Type 2 diabetes mellitus with hyperglycemia E11.65 Active 066258469 Problem Gastroesophageal reflux disease with esophagitis K21.0 Active 391240166 Problem Ulcer of esophagus without bleeding K22.10 Active 87260889 ALLERGIES Substance Reaction Event Type Date Status Reglan dizziness Drug Allergy Apr, Active Penicillin V Potassium Unknown Drug Allergy Apr, Active SOCIAL HISTORY Never Assessed PLAN OF CARE Activity Details Follow Up prn Reason: VITAL SIGNS Height 63 in 2016-04-12 Weight 203 lbs 2016-04-12 Temperature 97.4 degrees Fahrenheit 2016-04-12 Heart Rate 88 bpm 2016-04-12 Respiratory Rate 20 2016-04-12 BMI 35.96 kg/m2 2016-04-12 Blood pressure systolic 128 mmHg 2016-04-12 Blood pressure diastolic 76 mmHg 2016-04-12 MEDICATIONS Medication Instructions Dosage Frequency Start Date End Date Duration Status Tylenol 325 MG Orally every 6 hrs 2 tablets as needed 6h Active Ankit Contour Test 1 In Vitro 2 times a day as directed 12h Apr, Active Promethazine-Codeine 6.25-10 MG/5ML Orally every 6 hrs 5 ml as needed 6h Apr, Apr, 5 days Active Protonix 40 mg Orally 2 times a day 1 tablet 12h 30 days Active MetFORMIN HCl ER 500 MG Orally twice a day 2 tablets 12h 13 Dec, 2015 30 day(s) Active Levaquin 500 MG Orally Once a day 1 tablet 24h Mar, Apr, 10 day(s) Active Lantus SoloStar 100 UNIT/ML Subcutaneous Once a day 47 units 24h 63 Active Zyrtec Allergy 10 MG Orally Once a day 1 tablet 24h Active RESULTS No Results PROCEDURES No Known procedures IMMUNIZATIONS No Known Immunizations MEDICAL (GENERAL) HISTORY [...]
--- OUTSIDE RECORDS SUMMARY | 2016-12-02 22:05 | XMS REPORT ---
Author Author CHERRY MARTIN Organization [facility] Address [address] [place] [address] Care Team Providers Care Asset Protection Lead Name Role Phone CHERRY MARTIN Unavailable PROBLEMS Type Condition ICD9-CM Code LDS54-QG Code Onset Dates Condition Status SNOMED Code Problem Type 2 diabetes mellitus without complication E11.9 Active 96963791 Problem retirement current use of insulin Z79.4 Active 176717318 Problem Esophageal spasm K22.4 Active 46757752 Problem Type 2 diabetes mellitus without complications E11.9 Active 235357943 Problem Seasonal allergic rhinitis, unspecified allergic rhinitis trigger J30.2 Active 703541650 Problem Other chronic pain G89.29 Active 97910307 Problem Type 2 diabetes mellitus with hyperglycemia E11.65 Active 367717330 Problem Gastroesophageal reflux disease with esophagitis K21.0 Active 398205026 Problem Ulcer of esophagus without bleeding K22.10 Active 34721495 ALLERGIES No Known Allergies SOCIAL HISTORY No smoking Hx information available PLAN OF CARE VITAL SIGNS MEDICATIONS Medication Instructions Dosage Frequency Start Date End Date Duration Status MetFORMIN HCl ER 500 MG Orally twice a day 2 tablets 12h 13 Dec, 2015 30 day(s) Active Lantus SoloStar 100 UNIT/ML Subcutaneous Once a day 47 units 24h 63 Active RESULTS No Results PROCEDURES No Known procedures IMMUNIZATIONS No Known Immunizations
--- OUTSIDE RECORDS SUMMARY | 2016-12-02 22:05 | XMS REPORT ---
Author Author CHERRY MARTIN [facility] Address [address] [place] [address] Care Team Providers Care Box Sealing Machine Catcher Name Role Phone CHERRY MARTIN Unavailable PROBLEMS Type Condition ICD9-CM Code ERX49-IL Code Onset Dates Condition Status SNOMED Code Problem Type 2 diabetes mellitus without complication E11.9 Active 35963875 Problem assisted current use of insulin Z79.4 Active 480523686 Problem Esophageal spasm K22.4 Active 06067903 Problem Type 2 diabetes mellitus without complications E11.9 Active 301100920 Problem Seasonal allergic rhinitis, unspecified allergic rhinitis trigger J30.2 Active 247878248 Problem Other chronic pain G89.29 Active 03121144 Problem Type 2 diabetes mellitus with hyperglycemia E11.65 Active 884162801 Problem Gastroesophageal reflux disease with esophagitis K21.0 Active 333391474 Problem Ulcer of esophagus without bleeding K22.10 Active 04368786 ALLERGIES No Known Allergies SOCIAL HISTORY No smoking Hx information available PLAN OF CARE VITAL SIGNS MEDICATIONS No Known Medications RESULTS No Results PROCEDURES No Known procedures IMMUNIZATIONS No Known Immunizations
[2016-12-02] MEDS ORDERED: NS IV 1000 ML 1,000 ML IV ONE (22:24)
[2016-12-02] MEDS ORDERED: RT-ALBUINH (22:31)
[2016-12-02] MEDS ORDERED: PANT40TA3 (22:31)
[2016-12-02 22:33] LABS: BASOPHILS % (AUTO) 0 % (0-10); EOSINOPHILS # (AUTO) 0.1 10^3/uL (0.0-0.3); EOSINOPHILS % (AUTO) 1 % (0-10); LYMPHOCYTES # (AUTO) 3.3 X 10^3 (1.0-4.0); LYMPHOCYTES % (AUTO) 36 % (12-44); MEAN CORPUSCULAR HEMOGLOBIN 25 PG (25-34); MEAN CORPUSCULAR HGB CONC 32 G/DL (32-36); MEAN CORPUSCULAR VOLUME 80 FL (80-99); MEAN PLATELET VOLUME 9.4 FL (7.4-10.4); MONOCYTES # (AUTO) 0.8 X 10^3 (0.0-1.0); MONOCYTES % (AUTO) 9 % (0-12); NEUTROPHILS % (AUTO) 54 % (42-75); PLATELET COUNT 486 10^3/uL (130-400); RED BLOOD COUNT 4.09 10^6/uL (4.35-5.85); RED CELL DISTRIBUTION WIDTH 15.8 % (10.0-14.5); WHITE BLOOD COUNT 9.2 10^3/uL (4.3-11.0)
--- NOTE | 2016-12-02 22:37 | ED Abdominal Pain ---
General Chief Complaint: Abdominal/GI Problems Stated Complaint: L SIDE PAIN Source of Information: Patient Exam Limitations: No Limitations History of Present Illness Time Seen By Provider: 22:13 Initial Comments Here with complaint of intermittent left-sided abdominal pain over the last 3 weeks. Seems to be worse with eating and a little better with rest. She states that she's had intermittent problems for the last several months since Jagjit fundoplication procedure denies nausea, vomiting, bloody stools but reports burping, intermittent diarrhea and occasional shortness of breath. Reports shortness of breath is due to the pain. Timing/Duration: Other (3 weeks) Severity/Quality: Moderate, Aching Location: LUQ Radiation: No Radiation Activities at Onset: None Modifying Factors: Worsens With Eating Associated Symptoms: No Back Pain, No Chest Pain, No Fever/Chills, Shortness of Air, No Weakness Allergies and Home Medications Allergies Coded Allergies: metoclopramide (Verified Allergy, Intermediate, 07/30/16) S.O.A. Penicillins (Verified Allergy, Mild, 03/10/16) Home Medications Albuterol Sulfate 1 Puff Puff, (Reported) Cetirizine HCl 10 Mg Capsule, 10 MG PO DAILY, (Reported) Insulin Glargine,Hum.rec.anlog 100 Unit/1 Ml Insuln.pen, 56 UNITS SC HS, ( Reported) Metformin HCl 1,000 Mg Tablet, 1,000 MG PO BID, (Reported) Ondansetron HCl 8 Mg Tablet, 8 MG PO TID PRN for NAUSEA, (Reported) Pantoprazole Sodium 40 Mg Tablet., (Reported) Review of Systems Constitutional: see HPI, chills, fever EENTM: No Symptoms Reported Respiratory: See HPI Cardiovascular: No Symptoms Reported Gastrointestinal: See HPI, Abdominal Pain, Denies Diarrhea, Denies Vomiting Genitourinary: No Symptoms Reported Musculoskeletal: no symptoms reported Skin: no symptoms reported Psychiatric/Neurological: No Symptoms Reported All Other Systems Reviewed Negative Unless Noted: Yes Past Xypstbk-Oqftjt-Lpbbnm Hx Patient Social History Alcohol Use: Denies Use Recreational Drug Use: No Smoking Status: Never a Smoker 2nd Hand Smoke Exposure: No Recent Foreign Travel: No Contact w/Someone Who Travel: No Recent Hopitalizations: Yes Immunizations Up To Date Tetanus Booster (TDap): Unknown PED Vaccines UTD: No Date of Pneumonia Vaccine: July 28, 2009 Date of Influenza Vaccine: Jan 10, 2016 Seasonal Allergies Seasonal Allergies: Yes Surgeries History of Surgeries: Yes (LT KNEE SURGERY, ENDOSCOPY, EYE SX, kristy fundoplication) Surgeries: Abdominal, Eye Surgery Respiratory History of Respiratory Disorde: Yes Respiratory Disorders: Asthma, Chronic Bronchitis Currently Using CPAP: No Currently Using BIPAP: No Cardiovascular History of Cardiac Disorders: No Cardiac Disorders: High Cholesterol Neurological History of Neurological Disord: No Reproductive System Hx Reproductive Disorders: No Sexually Transmitted Disease: No HIV/AIDS: No Female Reproductive Disorders: Denies Genitourinary History of Genitourinary Disor: Yes Genitourinary Disorders: UTI-Chronic Gastrointestinal History of Gastrointestinal Di: Yes (ESOPHAGEAL NARROWING) Gastrointestinal Disorders: Gastroesophageal Reflux, Hiatal Hernia, Ulcer Musculoskeletal History of Musculoskeletal Dis: Yes Musculoskeletal Disorders: Arthritis Endocrine History of Endocrine Disorders: Yes Endocrine Disorders: Diabetes, Insulin dep HEENT History of HEENT Disorders: No Loss of Vision: Bilateral Hearing Impairment: Denies Cancer History of Cancer: No Psychosocial History of Psychiatric Problem: No Integumentary History of Skin or Integumenta: No Blood Transfusions History of Blood Disorders: No Adverse Reaction to a Blood Tr: No Reviewed Nursing Assessment Reviewed/Agree w Nursing PMH: Yes Family Medical History Significant Family History: Asthma, CAD Over 55 Years Old, Diabetes Family Medial History: Arthritis 19 FATHER 19 MOTHER G8 SISTER Asthma 19 FATHER 19 MOTHER G8 SISTER Cataracts 19 MOTHER Diabetes mellitus 19 FATHER 19 MOTHER G8 SISTER FH: leukemia 19 FATHER Myocardial infarction 19 MOTHER Parkinson's disease 19 FATHER Thyroid disease 19 MOTHER Physical Exam Vital Signs VS - Last 72 Hours, by Label 12/02/16 22:31 Temp 98.6 Pulse 88 Resp 16 B/P (MAP) 129/96 Pulse Ox 97 O2 Delivery Room Air Capillary Refill : General Appearance: WD/WN, no apparent distress HEENT: PERRL/EOMI, pharynx normal Neck: full range of motion, supple Respiratory: lungs clear, normal breath sounds Cardiovascular: regular rate, rhythm, no murmur Gastrointestinal: soft, No guarding, No rebound, tenderness (left upper quadrant) Extremities: non-tender, normal inspection Back: normal inspection, no CVA tenderness, no vertebral tenderness Neurologic/Psychiatric: alert, oriented x 3 Skin: normal color, warm/dry Progress/Results/Core Measures Results/Orders Lab Results Laboratory Tests Test 12/02/16 21:25 12/02/16 22:25 Range/Units Urine Color YELLOW Urine Clarity CLEAR Urine pH 5 5-9 Urine Specific [place] 1.025 H 1.016-1.022 Urine Protein 2+ H NEGATIVE Urine Glucose (UA) 2+ H NEGATIVE Urine Ketones 1+ H NEGATIVE Urine Nitrite NEGATIVE NEGATIVE Urine Bilirubin NEGATIVE NEGATIVE Urine Urobilinogen NORMAL NORMAL MG/DL Urine Leukocyte Esterase 2+ H NEGATIVE Urine RBC (Auto) NEGATIVE NEGATIVE Urine RBC NONE /HPF Urine WBC 5-10 H /HPF Urine Squamous Epithelial Cells 2-5 /HPF Urine Crystals NONE /LPF Urine Bacteria FEW H /HPF Urine Casts NONE /LPF Urine Mucus MODERATE H /LPF Urine Culture Indicated YES White Blood Count 9.2 4.3-11.0 10^3/uL Red Blood Count 4.09 L 4.35-5.85 10^6/uL Hemoglobin 10.3 L 11.5-16.0 G/DL Hematocrit 33 L 35-52 % Mean Corpuscular Volume 80 80-99 FL Mean Corpuscular Hemoglobin 25 25-34 PG Mean Corpuscular Hemoglobin Concent 32 32-36 G/DL Red Cell Distribution Width 15.8 H 10.0-14.5 % Platelet Count 486 H 130-400 10^3/uL Mean Platelet Volume 9.4 7.4-10.4 FL Neutrophils (%) (Auto) 54 42-75 % Lymphocytes (%) (Auto) 36 12-44 % Monocytes (%) (Auto) 9 0-12 % Eosinophils (%) (Auto) 1 0-10 % Basophils (%) (Auto) 0 0-10 % Neutrophils # (Auto) 5.0 1.8-7.8 X 10^3 Lymphocytes # (Auto) 3.3 1.0-4.0 X 10^3 Monocytes # (Auto) 0.8 0.0-1.0 X 10^3 Eosinophils # (Auto) 0.1 0.0-0.3 10^3/uL Basophils # (Auto) 0.0 0.0-0.1 10^3/uL Sodium Level 141 135-145 MMOL/L Potassium Level 3.7 3.6-5.0 MMOL/L Chloride Level 108 H 98-107 MMOL/L Carbon Dioxide Level 21 21-32 MMOL/L Anion Gap 12 5-14 MMOL/L Blood Urea Nitrogen 10 7-18 MG/DL Creatinine 1.03 0.60-1.30 MG/DL Estimat Glomerular Filtration Rate 58 BUN/Creatinine Ratio 10 Glucose Level 138 H 70-105 MG/DL Calcium Level 9.4 8.5-10.1 MG/DL Magnesium Level 1.9 1.8-2.4 MG/DL Total Bilirubin 0.3 0.1-1.0 MG/DL Aspartate Amino Transf (AST/SGOT) 14 5-34 U/L Alanine Aminotransferase (ALT/SGPT) 15 0-55 U/L Alkaline Phosphatase 71 40-136 U/L Total Protein 8.0 6.4-8.2 GM/DL Albumin 4.2 3.2-4.5 GM/DL Amylase Level 38 25-125 U/L Lipase 47 8-78 U/L My Orders Orders - WILEY AMBRIZ MD Saline Lock/Iv-Start (12/02/16 22:24) Ns Iv 1000 Ml (Sodium Chloride 0.9%) (12/02/16 22:24) Amylase (12/02/16 22:24) Cbc With Automated Diff (12/02/16 22:24) Comprehensive Metabolic Panel (12/02/16 22:24) Lipase (12/02/16 22:24) Ua Culture If Indicated (12/02/16 22:24) Magnesium (12/02/16 22:24) Urine Culture (12/02/16 21:25) Ct Abdomen/Pelvis W (12/02/16 23:10) Iohexol Injection (Omnipaque 350 Mg/Ml 1 (12/02/16 23:30) Ns (Ivpb) (Sodium Chloride 0.9% Ivpb Bag (12/02/16 23:30) Ng Tube Insert & Assessment (12/03/16 00:06) Medications Given in ED Current Medications Medications Dose Ordered Sig/Hunter Route Start Time Stop Time Status Last Admin Dose Admin Iohexol 100 ml ONCE ONCE IV 12/02/16 23:30 12/03/16 01:18 DC 12/02/16 23:32 100 ML Sodium Chloride 100 ml ONCE ONCE IV 12/02/16 23:30 12/03/16 01:18 DC 12/02/16 23:32 100 ML Sodium Chloride 1,000 ml @ 0 mls/hr Q0M ONCE IV 12/02/16 22:24 12/02/16 22:26 DC 12/02/16 22:38 0 MLS/HR Vital Signs/I&O Vital Sign - Last 12Hours 12/02/16 22:31 Temp 98.6 Pulse 88 Resp 16 B/P (MAP) 129/96 Pulse Ox 97 O2 Delivery Room Air Progress Note : Progress Note Seen and evaluated. IV, labs, normal saline 1 L bolus and UA ordered. Monitor patient. 0030: Preliminary look at the CT shows significant air-filled bowel. NG tube indicated and was ordered. I did discuss this with the patient. She would like to avoid NG tube. She is passing gas well. Patient does have a behavior in which she swallows air frequently as I am watching her. I did discuss this with her. She states that she does not realize that she is doing that. This may be related to her previous hiatal hernia and how she was able to previously burped. After the Jagjit fundoplication, she is no longer able to burp well. She and her are reporting that she does pass significant gas now since the procedure in July. We did discuss at this air gulping behavior may be exacerbating her problem. Pending CT results. 0135: Patient is still passing quite a bit of gas and her pain has resolved. Due to the fact that she is passing gas and still stooling, we will not to do NG tube at this time. Patient would like to go home and she has follow-up appointment with Dr. Collier this week. It is a reasonable option at this point the understanding that she would have to come back if she had any increasing pain. Patient agreed and verbalizes understanding. Discharged home with return precautions. Patient verbalize understanding instructions and agreement with plan. Diagnostic Imaging Diagonstic Imaging: CT Plain Films/CT/US/NM/MRI: abdomen, pelvis Comments Difficult to run the bowel. Diffuse distention of the bowel may be from ileus/ functional obstruction. Recommend further evaluation. There is concern for underlying mechanical obstruction. Gaseous distention of the stomach. No radiodense gallstones or pancreatitis. Small amount of fluid in the pelvis. Swirling of the reason 3 vessels. Appendix not identified. Uterine fibroid. Reviewed: Reviewed [place] Study, Reviewed by Me Departure Impression Impression: Primary Impression: Diffuse abdominal pain Additional Impression: Urinary tract infection Qualified Codes: N30.00 - Acute cystitis without hematuria Disposition: HOME, SELF-CARE Condition: Stable Departure-Patient Inst. Decision time for Depature: 01:46 Referrals: RIAZ REAL DO (PCP) Primary Care Physician CHERRY MARTIN (Family) Primary Care Physician ADAN COLLIER MD Patient Instructions: Acute Abdomen (Belly Pain), Adult (DC), Urinary Tract Infection, Adult (DC) Add. Discharge Instructions: All discharge instructions reviewed with patient and/or family. Voiced understanding. Take medications as directed. Follow-up with your surgeon on as scheduled. You may use Gas-X or similar [id number]-jobuhrk agent to help reduce her gas. It is very important that you avoid gulping air as your stomach has no outward to relieved that. Return for worse pain, fever, vomiting, not passing gas or inability to have a bowel movement or for other concerns as needed. Scripts Sulfamethoxazole/Trimethoprim (Sulfamethoxazole-Tmp Ds Tablet) 1 Each Tablet 1 EACH PO BID, #6 TAB 0 Refills Prov: WILEY AMBRIZ MD 12/03/16 Copy Copies To 1: ADAN COLLIER MD, TIMOTHY D MD Dec 02, 2016 22:37
[2016-12-02 22:48] LABS: BILIRUBIN,URINE NEGATIVE (NEGATIVE); KETONES,URINE 1+ (NEGATIVE); LEUKOCYTE ESTERASE ,URINE 2+ (NEGATIVE); NITRITE,URINE NEGATIVE (NEGATIVE); PH,URINE 5 (5-9); PROTEIN,URINE 2+ (NEGATIVE); UROBILINOGEN,URINE NORMAL (NORMAL)
[2016-12-02 22:59] LABS: ALBUMIN 4.2 GM/DL (3.2-4.5); BILIRUBIN,TOTAL 0.3 MG/DL (0.1-1.0); CALCIUM 9.4 MG/DL (8.5-10.1); CREATININE SERUM 1.03 MG/DL (0.60-1.30); MAGNESIUM 1.9 MG/DL (1.8-2.4); POTASSIUM 3.7 MMOL/L (3.6-5.0)
[2016-12-02] MEDS ORDERED: NS 100 ML (IVPB) BAG IV ONE (23:30)
[2016-12-02] MEDS ORDERED: IOHEXOL 350 MG/ML 100 ML (OMNIPAQUE 350) VIAL IV ONE (23:30)
[2016-12-03] MEDS ORDERED: SULF-222 PO (01:59)
[2016-12-03 02:27] VITALS: BP 124/88
--- NOTE | 2016-12-03 07:17 | Diagnostic Imaging Report ---
PROCEDURE: CT abdomen and pelvis with contrast. TECHNIQUE: Multiple contiguous axial images were obtained through the abdomen and pelvis after administration of intravenous contrast. INDICATION: Abdominal pain with nausea and emesis. Comparison is made to study of 07/28/2016. No focal hepatic or splenic lesion is identified. There is gaseous distention and dilatation of the stomach and small bowel, diffusely. This was present on the previous study but is seen to greater extent on the current exam. There are occasional air-fluid levels in distal small bowel as well. There is no evidence of gallbladder, pancreatic or adrenal gland lesion. Kidneys are unremarkable. There is no significant abdominal free fluid. There is a small amount of pelvic free fluid with heterogeneous appearance of the uterus noted which may be related to fibroid change. The partially opacified urinary bladder demonstrates no filling defect. IMPRESSION: Diffuse distention of stomach and small bowel with gas and fluid. This was present on previous study but is seen to greater extent on the current examination. This may be related to extensive adynamic ileus. No definite transition point is seen to indicate an obstruction. Consideration could be given to small bowel series 4 further evaluation. There is a small amount of pelvic free fluid with heterogeneous appearance of the uterus which may be secondary to fibroid change. Clinical correlation would be useful. Dictated by: Dictated on workstation # [id number]
== END 2016-12-03 02:27 | disposition home or self-care (01) ==
LOC: EDUNIT# 21:55 → ER 21:57
DX: N39.0 Urinary tract infection, site not specified (principal); J45.909 Unspecified asthma, uncomplicated; K21.9 Gastro-esophageal reflux disease without esophagitis; E11.9 Type 2 diabetes mellitus without complications; M19.90 Unspecified osteoarthritis, unspecified site; E78.00 Pure hypercholesterolemia, unspecified; Z87.19 Personal history of other diseases of the digestive system; Z82.49 Family history of ischemic heart disease and other diseases of the circulatory system; Z79.4 Long term (current) use of insulin; Z79.84 Long term (current) use of oral hypoglycemic drugs; Z80.6 Family history of leukemia
CPT/HCPCS: 36415; 74177; 80053; 81000; 82150; 83690; 83735; 85025; 87088

== ENCOUNTER → 2017-08-14 | Outpatient (CLI) | payer OTHER ==
[~2017-08-14] MED LIST changes: -METF1000 PO; +METF10002 PO
--- NOTE | 2017-08-15 19:14 | Diagnostic Imaging Report ---
EXAMINATION: Digital mammogram bilateral screening with 3D tomosynthesis. INDICATION: Screening. This is the patient's baseline study. At this time, there are no current complaints. The current study was also evaluated with a Computer Aided Detection (CAD) system. FINDINGS: The fibroglandular tissue in both breasts is extremely dense. This does limit the sensitivity of this exam. In the upper-outer aspect of the left breast, approximately 12 cm from the nipple, there is a group of pleomorphic microcalcifications. These calcifications are suspicious for malignancy. I would recommend that a compression/magnification view of these microcalcifications be obtained in both the CC and ML projections so that they can be better characterized. There are a few other benign-appearing calcifications in both breasts. There is no primary or secondary sign of malignancy noted otherwise. IMPRESSION: Additional mammographic views of the left breast would be recommended for further study. ACR BI-RADS Category 0: Incomplete. (Needs additional imaging evaluation). Result letter will be mailed to the patient. Note: At least 10% of breast cancer is not imaged by mammography. Dictated by: Dictated on workstation # [id number]
== END ==
LOC: RAD 10:00
PROVIDERS: ATTEND Nurse Practitioner Family
DX: Z12.31 Encounter for screening mammogram for malignant neoplasm of breast (principal)
CPT/HCPCS: 77067

== ENCOUNTER → 2017-09-06 | Outpatient (CLI) | payer OTHER ==
[~2017-09-06] MED LIST changes: -CODE118S2 PO; +CODE118S4 PO; +SULF1TAB35 PO
--- NOTE | 2017-09-06 18:14 | Diagnostic Imaging Report ---
INDICATION: Left breast calcifications. COMPARISON: Screening mammogram from 08/14/2017. EXAMINATION: Unilateral left 2D and 3D diagnostic mammography was performed including magnification CC and ML views as well as conventional 90 degree lateral view. FINDINGS: Multiple calcifications are identified in the lateral portion of the left breast. There is a cluster of microcalcifications which are considered suspicious and somewhat pleomorphic in this location. Posterior to this is a smaller cluster. These appear to be slightly more coarse and may be benign. These are more inferiorly located and posterior on the ML view. No mass is seen. IMPRESSION: BI-RADS 4. Suspicious cluster of microcalcifications in the upper outer left breast at mid depth. Tissue sampling is recommended. These would be amenable to stereotactic biopsy approach. ACR BI-RADS Category 4: Suspicious abnormality. Result letter will be mailed to the patient. Note: At least 10% of breast cancer is not imaged by mammography. Dictated by: Dictated on workstation # [id number]
== END ==
LOC: RAD 12:52
PROVIDERS: ATTEND Nurse Practitioner Family
DX: R92.8 Other abnormal and inconclusive findings on diagnostic imaging of breast (principal)

== ENCOUNTER → 2017-09-23 | Outpatient (CLI) | payer OTHER ==
[~2017-09-23] VITALS: Ht 160 cm; Wt 73.5 kg
[~2017-09-23] MED LIST changes: +LIDOCAINE 1% INJ 20 ML 20 ML VIAL INJ ONE; +LIDOCAINE 1% INJ 20 ML 20 ML VIAL ONE
[2017-09-23 10:35] VITALS: BP 130/84
[2017-09-23 11:26] VITALS: BP 121/60
--- NOTE | 2017-09-23 13:16 | Diagnostic Imaging Report ---
INDICATION: Left breast calcifications. The patient presents for stereotactic biopsy. TECHNIQUE: The patient was brought to the stereotactic suite and the left breast was placed in the CC position. Imaging over the left breast was performed to evaluate for an appropriate entry site. Calcifications in the upper and outer aspect of the left breast were stereotactically targeted. The left breast was then prepped and draped in the usual sterile fashion. A small amount of 1% lidocaine was utilized for local anesthesia. An 8 gauge needle was advanced per targeting coordinates into the outer left breast. A total of 4 core biopsies was obtained with a vacuum-assisted device. The followup specimen radiograph demonstrates numerous microcalcifications in all 4 samples. The localizer clip was then deployed. The needle was removed and hemostasis was obtained using manual compression. A followup mammogram does show the marker clip in the upper and outer aspect of the left breast. There has been removal of multiple calcifications in the left breast. The Pathology results are currently pending. IMPRESSION: Successful stereotactically assisted biopsy of the microcalcifications in the upper outer left breast utilizing vacuum-assisted device. The Pathology results are currently pending. Dictated by: Dictated on workstation # [id number]
== END ==
LOC: RAD 10:27
PROVIDERS: ATTEND Nurse Practitioner Family
DX: N60.12 Diffuse cystic mastopathy of left breast (principal); N60.22 Fibroadenosis of left breast; N60.92 Unspecified benign mammary dysplasia of left breast
CPT/HCPCS: 19081

== ENCOUNTER 2017-10-20 19:58 | Emergency (ER) | payer OTHER ==
[~2017-10-20] VITALS: Ht 160 cm; Wt 81.6 kg
[~2017-10-20 19:58] MED LIST changes: -LIDOCAINE 1% INJ 20 ML 20 ML VIAL INJ ONE; -LIDOCAINE 1% INJ 20 ML 20 ML VIAL ONE; -SULF1TAB35 PO
[2017-10-20] MEDS ORDERED: KETOROLAC 30 MG/ML VIAL IVP ONE (20:15)
[2017-10-20] MEDS ORDERED: LIDOCAINE 2% VISCOUS 15 ML UDC PO ONE (20:15)
[2017-10-20] MEDS ORDERED: ONDANSETRON 4 MG (ZOFRAN) ORAL DISSOLVE TAB PO ONE (20:15)
[2017-10-20] MEDS ORDERED: ANTACID SUSP 30 ML UDC (MYLANTA) PO ONE (20:15)
--- NOTE | 2017-10-20 20:24 | ED Abdominal Pain ---
General Chief Complaint: Abdominal/GI Problems Stated Complaint: RIGHT ABD PAIN,NAUSEA Source of Information: Patient Exam Limitations: No Limitations History of Present Illness Date Seen by Provider: Oct 20, 2017 Time Seen by Provider: 20:23 Initial Comments To ER with acid reflux, nausea, right-sided abdominal pain for the past few days. She has also vomited twice today. Timing/Duration: 1-2 Days Severity/Quality: Moderate Location: RLQ Radiation: No Radiation Activities at Onset: None Associated Symptoms: Nausea/Vomiting Allergies and Home Medications Allergies Coded Allergies: metoclopramide (Verified Allergy, Intermediate, 07/30/16) S.O.A. Penicillins (Verified Allergy, Mild, 03/10/16) Home Medications Albuterol Sulfate 1 Puff Puff, 2 PUFF IH Q6H PRN for SHORTNESS OF BREATH, ( Reported) Cetirizine HCl 10 Mg Capsule, 10 MG PO DAILY, (Reported) Insulin Glargine,Hum.rec.anlog 100 Unit/1 Ml Insuln.pen, 24 UNITS SC HS, ( Reported) Metformin HCl 1,000 Mg Tablet, 1,000 MG PO BID, (Reported) Montelukast Sodium 10 Mg Tablet, 10 MG PO HS, (Reported) Pantoprazole Sodium 40 Mg Tablet.dr, 40 MG PO HS, (Reported) Patient Home Medication List Home Medication List Reviewed: Yes Review of Systems Constitutional: see HPI EENTM: No Symptoms Reported Respiratory: No Symptoms Reported Cardiovascular: No Symptoms Reported Gastrointestinal: See HPI, Abdominal Pain, Nausea, Vomiting Genitourinary: No Symptoms Reported Musculoskeletal: no symptoms reported Skin: no symptoms reported Psychiatric/Neurological: No Symptoms Reported Endocrine: No Symptoms Reported Hematologic/Lymphatic: No Symptoms Reported Past Kfimbzs-Bsimzm-Srvunb Hx Patient Social History 2nd Hand Smoke Exposure: No Recent Foreign Travel: No Contact w/Someone Who Travel: No Recent Hopitalizations: No Immunizations Up To Date Tetanus Booster (TDap): Unknown PED Vaccines UTD: No Date of Pneumonia Vaccine: July 28, 2009 Date of Influenza Vaccine: Jan 09, 2017 Seasonal Allergies Seasonal Allergies: Yes Past Medical History Surgeries: Yes (LT KNEE SURGERY, ENDOSCOPY, EYE SX, kristy fundoplication) Abdominal, Eye Surgery Respiratory: Yes Asthma Currently Using CPAP: No Currently Using BIPAP: No Cardiac: No High Cholesterol Neurological: No Reproductive Disorders: No Female Reproductive Disorders: Denies Sexually Transmitted Disease: No HIV/AIDS: No Genitourinary: Yes UTI-Chronic Gastrointestinal: Yes (ESOPHAGEAL NARROWING) Gastroesophageal Reflux, Hiatal Hernia, Ulcer Musculoskeletal: Yes Arthritis Endocrine: Yes Diabetes, Insulin dep HEENT: No Loss of Vision: Bilateral Hearing Impairment: Denies Cancer: No Psychosocial: No Integumentary: No Blood Disorders: No Adverse Reaction/Blood Tranf: No Family Medical History Arthritis 19 FATHER 19 MOTHER G8 SISTER Asthma 19 FATHER 19 MOTHER G8 SISTER Cataracts 19 MOTHER Diabetes mellitus 19 FATHER 19 MOTHER G8 SISTER FH: leukemia 19 FATHER Myocardial infarction 19 MOTHER Parkinson's disease 19 FATHER Thyroid disease 19 MOTHER Asthma, CAD Over 55 Years Old, Diabetes Physical Exam Vital Signs Vital Signs - First Documented 10/20/17 20:05 Temp 97.3 Pulse 84 Resp 16 B/P (MAP) 146/99 (115) Pulse Ox 98 Capillary Refill : Height/Weight/BMI Height: 5'3.00" Weight: 162lbs. 0.0oz. 73.089711pb; 28.7 BMI Method:Stated General Appearance: WD/WN, no apparent distress HEENT: PERRL/EOMI, normal ENT inspection Neck: non-tender, full range of motion Respiratory: no respiratory distress, no accessory muscle use Cardiovascular: regular rate, rhythm, no murmur Gastrointestinal: normal bowel sounds, non tender, soft Extremities: normal range of motion, non-tender Neurologic/Psychiatric: alert, normal mood/affect, oriented x 3 Skin: normal color, warm/dry Progress/Results/Core Measures Results/Orders Lab Results Laboratory Tests Test 10/20/17 20:10 10/20/17 21:53 Range/Units White Blood Count 8.9 4.3-11.0 10^3/uL Red Blood Count 4.11 L 4.35-5.85 10^6/uL Hemoglobin 12.1 11.5-16.0 G/DL Hematocrit 37 35-52 % Mean Corpuscular Volume 89 80-99 FL Mean Corpuscular Hemoglobin 29 25-34 PG Mean Corpuscular Hemoglobin Concent 33 32-36 G/DL Red Cell Distribution Width 13.3 10.0-14.5 % Platelet Count 420 H 130-400 10^3/uL Mean Platelet Volume 9.6 7.4-10.4 FL Neutrophils (%) (Auto) 60 42-75 % Lymphocytes (%) (Auto) 31 12-44 % Monocytes (%) (Auto) 7 0-12 % Eosinophils (%) (Auto) 1 0-10 % Basophils (%) (Auto) 0 0-10 % Neutrophils # (Auto) 5.3 1.8-7.8 X 10^3 Lymphocytes # (Auto) 2.8 1.0-4.0 X 10^3 Monocytes # (Auto) 0.7 0.0-1.0 X 10^3 Eosinophils # (Auto) 0.1 0.0-0.3 10^3/uL Basophils # (Auto) 0.0 0.0-0.1 10^3/uL Sodium Level 139 135-145 MMOL/L Potassium Level 3.7 3.6-5.0 MMOL/L Chloride Level 109 H 98-107 MMOL/L Carbon Dioxide Level 20 L 21-32 MMOL/L Anion Gap 10 5-14 MMOL/L Blood Urea Nitrogen 11 7-18 MG/DL Creatinine 0.77 0.60-1.30 MG/DL Estimat Glomerular Filtration Rate > 60 BUN/Creatinine Ratio 14 Glucose Level 132 H 70-105 MG/DL Calcium Level 9.3 8.5-10.1 MG/DL Corrected Calcium 9.2 8.5-10.1 MG/DL Total Bilirubin 0.2 0.1-1.0 MG/DL Aspartate Amino Transf (AST/SGOT) 14 5-34 U/L Alanine Aminotransferase (ALT/SGPT) 12 0-55 U/L Alkaline Phosphatase 48 40-136 U/L Total Protein 7.5 6.4-8.2 GM/DL Albumin 4.1 3.2-4.5 GM/DL Serum Test, Qualitative NEGATIVE NEGATIVE Urine Color YELLOW Urine Clarity CLEAR Urine pH 5 5-9 Urine Specific Portal 1.025 H 1.016-1.022 Urine Protein 2+ H NEGATIVE Urine Glucose (UA) 1+ H NEGATIVE Urine Ketones 1+ H NEGATIVE Urine Nitrite NEGATIVE NEGATIVE Urine Bilirubin 1+ H NEGATIVE Urine Urobilinogen NORMAL NORMAL MG/DL Urine Leukocyte Esterase 3+ H NEGATIVE Urine RBC (Auto) NEGATIVE NEGATIVE Urine RBC 0-2 /HPF Urine WBC 25-50 H /HPF Urine Squamous Epithelial Cells 10-25 H /HPF Urine Renal Epithelial Cells NONE /HPF Urine Crystals NONE /LPF Urine Bacteria MODERATE H /HPF Urine Casts NONE /LPF Urine Mucus MODERATE H /LPF Urine Culture Indicated YES My Orders Orders - LISS BAGLEY COMPILATION CLERK Cbc With Automated Diff (10/20/17 20:11) Comprehensive Metabolic Panel (10/20/17 20:11) Ua Culture If Indicated (10/20/17 20:11) Iv Heplock-Insert (Order) (10/20/17 20:11) Hcg,Qualitative Serum (10/20/17 20:11) Ketorolac Injection (Toradol Injection) (10/20/17 20:15) Ondansetron Oral Dissolve Tab (Zofran (10/20/17 20:15) Antacid Suspension (Mylanta Suspension (10/20/17 20:15) Lidocaine 2% Viscous 15 Ml (Xylocaine Vi (10/20/17 20:15) Ct Abd/Pelvis Wo(Kidney Stone) (10/20/17 20:42) Urine Culture (10/20/17 21:53) Medications Given in ED Current Medications Medications Dose Ordered Sig/Hunter Route Start Time Stop Time Status Last Admin Dose Admin Al Hydrox/Mg Hydrox/Simethicone 30 ml ONCE ONCE PO 10/20/17 20:15 10/20/17 20:16 DC 10/20/17 20:19 30 ML Ketorolac Tromethamine 15 mg ONCE ONCE IVP 10/20/17 20:15 10/20/17 20:16 DC 10/20/17 20:19 15 MG Lidocaine HCl 15 ml ONCE ONCE PO 10/20/17 20:15 10/20/17 20:16 DC 10/20/17 20:19 15 ML Ondansetron HCl 4 mg ONCE ONCE PO 10/20/17 20:15 10/20/17 20:16 DC 10/20/17 20:19 4 MG Vital Signs/I&O 10/20/17 20:05 Temp 97.3 Pulse 84 Resp 16 B/P (MAP) 146/99 (115) Pulse Ox 98 Diagnostic Imaging Diagonstic Imaging: CT Comments NAME: LONILAYLA Maria A MED REC#: [id number] PT STATUS: REG ER : 1970 PHYSICIAN: LISS BAGLEY COMPILATION CLERK ADMIT DATE: 10/20/17/ER Draft Date of Exam:10/20/17 CT ABD/PELVIS WO(KIDNEY STONE) PROCEDURE: CT urinary tract, rule out kidney stone. TECHNIQUE: Multiple contiguous axial images were obtained through the abdomen and pelvis without the use of intravenous contrast. INDICATION: Right-sided pain. FINDINGS: The previous CT abdomen/pelvis exam of 12/02/2016 failed to show any sign of nephrolithiasis or urolithiasis. In the interval since the prior study, however, a small, 2 mm, nonobstructive calculi has developed in the inferior pole of the right kidney. There is still no evidence for nephrolithiasis on the left. There is no sign of urolithiasis and the kidneys do not seem to be obstructed. The urinary bladder is only partially filled and consequently not well evaluated. There is no pelvic mass or free fluid collection evident. The appendix was not well-visualized but there are no indirect signs of acute appendicitis. The uterus is grossly unremarkable. The liver, spleen, gallbladder, aorta and inferior cava are unremarkable for an acute abnormality. The pancreas was not well visualized. The stomach is partially filled with fluid and consequently difficult to assess. The lung bases are clear. The bone windows are unremarkable for a fracture or for a destructive lesion. IMPRESSION: 1. The appendix was not well-visualized but there are no indirect signs of acute appendicitis. 2. A small nonobstructive calculus has developed in the inferior pole of the right kidney. Since the prior exam, there is no evidence for an obstruction of either collecting system by a calculus. 3. No other acute abnormality in the abdomen or pelvis is noted. Dictated on workstation # [id number] Dict: 10/20/172118 Trans: 10/20/172140 [facility] [id number] Interpreted by: LEONARDA TO MD Electronically signed by: Departure Impression Primary Impression: Abdominal pain Qualified Codes: R10.9 - Unspecified abdominal pain Additional Impression: Urinary tract infection Disposition: 01 HOME, SELF-CARE Condition: Stable Departure-Patient Inst. Decision time for Depature: 22:14 Referrals: RIAZ REAL DO (PCP) Primary Care Physician CHERRY MARTIN (Family) Primary Care Physician Patient Instructions: Urinary Tract Infection, Adult (DC) Add. Discharge Instructions: 1. Return to ER for any concerns All discharge instructions reviewed with patient and/or family. Voiced understanding. Scripts Sulfamethoxazole/Trimethoprim (Bactrim Ds Tablet) 1 Each Tablet 1 EACH PO BID, #10 TAB Prov: LISS BAGLEY APRN 10/20/17 LISS BAGLEY APRN Oct 20, 2017 20:24
[2017-10-20 20:28] LABS: BASOPHILS % (AUTO) 0 % (0-10); EOSINOPHILS # (AUTO) 0.1 10^3/uL (0.0-0.3); EOSINOPHILS % (AUTO) 1 % (0-10); HEMATOCRIT 37 % (35-52); HEMOGLOBIN 12.1 G/DL (11.5-16.0); LYMPHOCYTES # (AUTO) 2.8 X 10^3 (1.0-4.0); LYMPHOCYTES % (AUTO) 31 % (12-44); MEAN CORPUSCULAR HEMOGLOBIN 29 PG (25-34); MEAN CORPUSCULAR HGB CONC 33 G/DL (32-36); MEAN CORPUSCULAR VOLUME 89 FL (80-99); MEAN PLATELET VOLUME 9.6 FL (7.4-10.4); MONOCYTES # (AUTO) 0.7 X 10^3 (0.0-1.0); MONOCYTES % (AUTO) 7 % (0-12); NEUTROPHILS # (AUTO) 5.3 X 10^3 (1.8-7.8); NEUTROPHILS % (AUTO) 60 % (42-75); PLATELET COUNT 420 10^3/uL (130-400); RED BLOOD COUNT 4.11 10^6/uL (4.35-5.85); RED CELL DISTRIBUTION WIDTH 13.3 % (10.0-14.5); WHITE BLOOD COUNT 8.9 10^3/uL (4.3-11.0)
[2017-10-20 20:48] LABS: ALANINE AMINOTRANSFERASE 12 U/L (0-55); ALBUMIN 4.1 GM/DL (3.2-4.5); ALKALINE PHOSPHATASE 48 U/L (40-136); BILIRUBIN,TOTAL 0.2 MG/DL (0.1-1.0); BUN/CREATININE RATIO 14; CALCIUM 9.3 MG/DL (8.5-10.1); CARBON DIOXIDE 20 MMOL/L (21-32); CHLORIDE 109 MMOL/L (98-107); CREATININE SERUM 0.77 MG/DL (0.60-1.30); GFR ESTIMATED > 60; GLUCOSE 132 MG/DL (70-105); POTASSIUM 3.7 MMOL/L (3.6-5.0); SODIUM 139 MMOL/L (135-145); TOTAL PROTEIN 7.5 GM/DL (6.4-8.2)
--- NOTE | 2017-10-20 21:41 | Diagnostic Imaging Report ---
PROCEDURE: CT urinary tract, rule out kidney stone. TECHNIQUE: Multiple contiguous axial images were obtained through the abdomen and pelvis without the use of intravenous contrast. INDICATION: Right-sided pain. FINDINGS: The previous CT abdomen/pelvis exam of 12/02/2016 failed to show any sign of nephrolithiasis or urolithiasis. In the interval since the prior study, however, a small, 2 mm, nonobstructive calculi has developed in the inferior pole of the right kidney. There is still no evidence for nephrolithiasis on the left. There is no sign of urolithiasis and the kidneys do not seem to be obstructed. The urinary bladder is only partially filled and consequently not well evaluated. There is no pelvic mass or free fluid collection evident. The appendix was not well-visualized but there are no indirect signs of acute appendicitis. The uterus is grossly unremarkable. The liver, spleen, gallbladder, aorta and inferior cava are unremarkable for an acute abnormality. The pancreas was not well visualized. The stomach is partially filled with fluid and consequently difficult to assess. The lung bases are clear. The bone windows are unremarkable for a fracture or for a destructive lesion. IMPRESSION: 1. The appendix was not well-visualized but there are no indirect signs of acute appendicitis. 2. A small nonobstructive calculus has developed in the inferior pole of the right kidney, since the prior exam. However, there is no evidence for an obstruction of either collecting system by a calculus. 3. No other acute abnormality in the abdomen or pelvis is noted. Dictated by: Dictated on workstation # [id number]
[2017-10-20 22:00] LABS: CLARITY,URINE CLEAR; COLOR,URINE YELLOW; GLUCOSE, URINE (UA) 1+ (NEGATIVE); KETONES,URINE 1+ (NEGATIVE); LEUKOCYTE ESTERASE ,URINE 3+ (NEGATIVE); NITRITE,URINE NEGATIVE (NEGATIVE); PH,URINE 5 (5-9); PROTEIN,URINE 2+ (NEGATIVE); UROBILINOGEN,URINE NORMAL (NORMAL)
[2017-10-20 22:11] LABS: BACTERIA,URINE MODERATE /HPF; BILIRUBIN,URINE 1+ (NEGATIVE); RBC,URINE 0-2 /HPF; WBC,URINE 25-50 /HPF
[2017-10-20] MEDS ORDERED: TRIM/SULFAMETH 160/800 (SEPTRA DS) TAB PO ONE (22:15)
[2017-10-20] MEDS ORDERED: SULF1TAB35 PO (22:15)
[2017-10-20 22:27] VITALS: BP 146/99
== END 2017-10-20 22:27 | disposition home or self-care (01) ==
LOC: EDUNIT# 19:58 → ER 20:00
DX: N39.0 Urinary tract infection, site not specified (principal); J45.909 Unspecified asthma, uncomplicated; E78.00 Pure hypercholesterolemia, unspecified; K21.9 Gastro-esophageal reflux disease without esophagitis; E11.9 Type 2 diabetes mellitus without complications; Z82.49 Family history of ischemic heart disease and other diseases of the circulatory system; Z87.19 Personal history of other diseases of the digestive system; Z80.6 Family history of leukemia; Z87.440 Personal history of urinary (tract) infections; Z88.0 Allergy status to penicillin; Z88.8 Allergy status to other drugs, medicaments and biological substances; Z79.4 Long term (current) use of insulin; Z79.51 Long term (current) use of inhaled steroids
CPT/HCPCS: 36415; 74176; 80053; 81000; 84703; 85025; 87088

== ENCOUNTER 2018-01-18 23:42 | Emergency (ER) | payer OTHER ==
[~2018-01-18] VITALS: Ht 160 cm; Wt 81.2 kg
[~2018-01-18 23:42] MED LIST changes: -BENZ-13 PO; +BENZ100C18 PO; -LOSA25TA21 PO; +LOSA25TA6 PO; +METF-399 PO; -METF10002 PO; +SULF1TAB35 PO
[2018-01-19 00:12] VITALS: BP 148/78
[2018-01-19] MEDS ORDERED: RX-NAPROXEN (NAPROSYN) 250 MG TAB PPK#4 PO STA (01:13)
[2018-01-19] MEDS ORDERED: NAPR-915 PO (01:17)
--- NOTE | 2018-01-19 01:17 | ED Lower Extremity ---
General Chief Complaint: Lower Extremity Stated Complaint: RT KNEE SWELLING & PAIN Nursing Triage Note: PT ARRIVES TO ED ROOM #7 WITH C/O RIGHT KNEE PAIN AND SWELLING X 24HOURS. PT IS UNAWARE OF EXACT INJURY. PT STATES THAT SHE IS HAVING DIFFICULTY MOVING AND WALKING. 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 SEEN AT [facility] W[facility] AND AGAIN BY CHUTE OPERATOR GAIL MARTIN--NO TESTS OR XRAYS DONE AND NO RX'S PT TOOK TYLENOL X 1 DOSE TODAY PT HAS HAD PRIOR LEFT KNEE SC[place] [address] SANCHEZ, FOR SIMILAR ISSUES. NO PROBLEMS WITH LEFT KNEE. PCP:[facility] Allergies and Home Medications Allergies Coded Allergies: metoclopramide (Verified Allergy, Intermediate, 07/30/16) S.O.A. Penicillins (Verified Allergy, Mild, 03/10/16) Home Medications Albuterol Sulfate 1 Puff Puff, 2 PUFF IH Q6H PRN for SHORTNESS OF BREATH, ( Reported) Cetirizine HCl 10 Mg Capsule, 10 MG PO DAILY, (Reported) Insulin Glargine,Hum.rec.anlog 100 Unit/1 Ml Insuln.pen, 24 UNITS SC HS, ( Reported) Metformin HCl 1,000 Mg Tablet, 1,000 MG PO BID, (Reported) Montelukast Sodium 10 Mg Tablet, 10 MG PO HS, (Reported) Naproxen 500 Mg Tablet, 500 MG PO BID Prescribed by: NOEL CHIN on 01/19/18 0117 Pantoprazole Sodium 40 Mg Tablet.dr, 40 MG PO HS, (Reported) Sulfamethoxazole/Trimethoprim 1 Each Tablet, 1 EACH PO BID Prescribed by: LISS BAGLEY on 10/20/17 9944 Patient Home Medication List Home Medication List Reviewed: Yes Review of Systems Constitutional: no symptoms reported : No LMP: Jan 18, 2018 Musculoskeletal: see HPI Skin: no symptoms reported Psychiatric/Neurological: No Symptoms Reported Past Ftcdjnh-Oqpcvh-Iqdqoe Hx Patient Social History Alcohol Use: Denies Use Recreational Drug Use: No Smoking Status: Never a Smoker 2nd Hand Smoke Exposure: No Recent Foreign Travel: No Contact w/Someone Who Travel: No Recent Infectious Disease Expo: No Recent Hopitalizations: No Physical Abuse: No Sexual Abuse: No Mistreated: No Fear: No Immunizations Up To Date Tetanus Booster (TDap): Unknown PED Vaccines UTD: No Date of Pneumonia Vaccine: July 28, 2009 Date of Influenza Vaccine: Jan 09, 2017 Seasonal Allergies Seasonal Allergies: Yes Past Medical History Surgeries: Yes (LT KNEE SCOPE 2012; ENDOSCOPY; EYE SURGERY; ANDREW FUNDOPLICATION 2016) Abdominal, Eye Surgery, Orthopedic Respiratory: Yes Asthma Currently Using CPAP: No Currently Using BIPAP: No Cardiac: Yes High Cholesterol Neurological: No Reproductive Disorders: No Female Reproductive Disorders: Denies Sexually Transmitted Disease: No HIV/AIDS: No Genitourinary: Yes UTI-Chronic Gastrointestinal: Yes (ESOPHAGEAL NARROWING) Gastroesophageal Reflux, Hiatal Hernia, Ulcer Musculoskeletal: Yes (LEFT KNEE SCOPE) Arthritis Endocrine: Yes Diabetes, Insulin dep HEENT: No Loss of Vision: Bilateral Hearing Impairment: Denies Cancer: No Psychosocial: No Integumentary: No Blood Disorders: No Adverse Reaction/Blood Tranf: No Family Medical History Arthritis 19 FATHER 19 MOTHER G8 SISTER Asthma 19 FATHER 19 MOTHER G8 SISTER Cataracts 19 MOTHER Diabetes mellitus 19 FATHER 19 MOTHER G8 SISTER FH: leukemia 19 FATHER Myocardial infarction 19 MOTHER Parkinson's disease 19 FATHER Thyroid disease 19 MOTHER Asthma, CAD Over 55 Years Old, Diabetes Physical Exam Vital Signs Vital Signs - First Documented 01/19/18 00:12 Temp 97.8 Pulse 60 Resp 18 B/P (MAP) 148/78 (101) Pulse Ox 100 O2 Delivery Room Air Capillary Refill : Less Than 3 Seconds Height, Weight, BMI Height: 5'3.00" Weight: 179lbs. 0oz. 81.430208xj; 28.7 BMI Method:Stated General Appearance: WD/WN, no apparent distress, other (SMILING, PLAYING / TEXTING ON PHONE.) HEENT: other (EXTREMELY POOR DENTITION--MULTIPLE MISSING TEETH AND ALL REMAINING TEETH DECAYED DOWN TO GUMS) Hips: bilateral hip normal inspection Legs: bilateral leg normal inspection Knees: left knee normal inspection; right knee bone tenderness, right knee joint effusion, right knee pain, right knee soft tissue tenderness, right knee swelling, right knee other (NO GROSS LIGAMENT LAXITY, BUT EXAM IS LIMITED BY PAIN AND SWELLING) Ankles: bilateral ankle normal inspection Feet: bilateral foot normal inspection Neurologic/Tendon: normal sensation, normal motor functions, normal tendon functions Neurologic/Psychiatric: equine science instructor II-XII nml as tested, no motor/sensory deficits, alert, normal mood/affect, oriented x 3 Skin: normal color, warm/dry; No ecchymosis Procedures/Interventions Splinting and Joint Reduction : Isaak wrap: Yes Immobilizers: 19 inch Knee Progress/Results/Core Measures Results/Orders My Orders Orders - NOEL CHIN DO Knee, Right, 3 Views (01/19/18 00:23) Isaak Bandage (01/19/18 01:13) Knee Immobilizer (01/19/18 01:13) Rx-Naproxen (Rx-Naprosyn) (01/19/18 01:13) Vital Signs/I&O 01/19/18 00:12 Temp 97.8 Pulse 60 Resp 18 B/P (MAP) 148/78 (101) Pulse Ox 100 O2 Delivery Room Air Blood Pressure Mean: 101 Diagnostic Imaging Comments XRAYS RIGHT KNEE--NO ACUTE PROCESS, PENDING RADIOLOGIST REVIEW Reviewed: Reviewed by Me Departure Impression Primary Impression: Pain and swelling of right knee Disposition: HOME, SELF-CARE Condition: Stable Departure-Patient Inst. Referrals: RIAZ REAL DO (PCP) Primary Care Physician CHERRY MARTIN (Family) Primary Care Physician LARISSA SANCHEZ MD Patient Instructions: How to Use an Elastic Bandage, Knee Immobilizer (DC), Knee Sprain (DC) Add. Discharge Instructions: ISAAK WRAP AND KNEE IMMOBILIZER AT ALL TIMES ICE TO AREA AT 20 MINUTE INTERVALS ELEVATE LEG MUCH POSSIBLE FOLLOW UP WITH DR. SANCHEZ NEXT WEEK FOR FURTHER CARE All discharge instructions reviewed with patient and/or family. Voiced understanding. Scripts Naproxen (Naproxen) 500 Mg Tablet 500 MG PO BID, #20 TAB Prov: NOEL CHIN DO 01/19/18 NOEL CHIN DO Jan 19, 2018 01:17
--- NOTE | 2018-01-19 07:33 | Diagnostic Imaging Report ---
Right knee at 0111. Indication: Knee pain. 3 views were obtained. There are no prior studies available for comparison. There is no fracture, dislocation or acute bony abnormality evident. The knee joint is fairly well maintained. The soft tissues are unremarkable. There may be a small joint effusion present. Impression: 1. There is no evidence for acute bony abnormality. 2. If there is clinical concern regarding internal derangement, then MRI would be recommended for further evaluation. Dictated by: Dictated on workstation # [id number]
== END 2018-01-19 02:05 | disposition home or self-care (01) ==
LOC: EDUNIT# 23:42 → ER 23:45
DX: M25.461 Effusion, right knee (principal); J45.909 Unspecified asthma, uncomplicated; E78.00 Pure hypercholesterolemia, unspecified; K21.9 Gastro-esophageal reflux disease without esophagitis; E11.9 Type 2 diabetes mellitus without complications; Z82.49 Family history of ischemic heart disease and other diseases of the circulatory system; Z87.440 Personal history of urinary (tract) infections; Z88.0 Allergy status to penicillin; Z88.8 Allergy status to other drugs, medicaments and biological substances; Z79.51 Long term (current) use of inhaled steroids; Z79.4 Long term (current) use of insulin
CPT/HCPCS: 73562; 99283

== ENCOUNTER → 2018-01-24 | Outpatient (CLI) | payer OTHER ==
[~2018-01-24] MED LIST changes: +NAPR-915 PO
--- NOTE | 2018-01-24 11:44 | Diagnostic Imaging Report ---
EXAMINATION: Magnetic resonance imaging of the right knee without intravenous contrast DATE: January 24, 2018. COMPARISON: Right knee radiographs January 19, 2018. INDICATION: 47-year-old female, right knee pain since August 2017. No known recent injury. TECHNIQUE: Multiplanar, multisequence non contrast enhanced MR imaging was accomplished. FINDINGS: MENISCI: The medial meniscus is intact. There is an extensive tear of the anterior horn of the lateral meniscus with additional longitudinal horizontal type tear involving the anterior horn/body junction, body, and posterior horn of the lateral meniscus. LIGAMENTS AND TENDONS: The anterior and posterior cruciate ligaments are intact. The medial collateral ligament is intact. The iliotibial band, mid third lateral capsular ligament, fibular collateral ligament, biceps femoris tendon and conjoined tendon are intact. The quadriceps tendon and patella ligament are intact. JOINT: There is abnormal signal extending to the bone cartilage interface involving the lateral patellar facet with the transverse dimension of cartilage signal abnormalities measuring 9 mm. There is minimal underlying subchondral edema which is degenerative related. The medial and lateral compartment cartilage is grossly intact. There is a small knee joint effusion. There is no identified intra-articular body or prominent synovitis. BONE: The additional bone marrow signal is unremarkable. Specifically, negative for fracture, osteomyelitis, osteonecrosis, or marrow replacing process. BURSAE AND SOFT TISSUES: There is very minimal fluid within the popliteal fossa without sizable Morales's cyst. There is nonspecific prepatellar subcutaneous edema. IMPRESSION: 1. Extensive tearing of the anterior horn of the lateral meniscus with additional longitudinal horizontal type tearing involving the remaining portions of the lateral meniscus. 2. Intact medial meniscus. 3. Intact anterior and posterior cruciate ligaments. Additional ligaments and tendons are intact. 4. Patellofemoral compartment arthritis with cartilage abnormalities as described in detail above. Intact medial and lateral compartment cartilage. Small knee joint effusion without prominent synovitis or intra-articular body. 5. No acute fracture, bone contusion, or evidence of osteonecrosis. Dictated by: Dictated on workstation # [id number]
== END ==
LOC: RAD 08:18
PROVIDERS: ATTEND Nurse Practitioner
DX: S83.281A Other tear of lateral meniscus, current injury, right knee, initial encounter (principal); S83.241A Other tear of medial meniscus, current injury, right knee, initial encounter; M17.11 Unilateral primary osteoarthritis, right knee
CPT/HCPCS: 73721

== ENCOUNTER 2018-02-16 16:20 | Emergency (ER) | payer OTHER ==
[~2018-02-16] VITALS: Ht 160 cm; Wt 83.5 kg
--- OUTSIDE RECORDS SUMMARY | 2018-02-16 16:27 | XMS REPORT ---
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 Name Role Phone STAHLRENEA Tao Unavailable PROBLEMS Type Condition ICD9-CM Code RKH77-SM Code Onset Dates Condition Status SNOMED Code Problem Gastroesophageal reflux disease with esophagitis K21.0 Active 299248429 Problem Type 2 diabetes mellitus without complications E11.9 Active 568157025 Problem Seasonal allergic rhinitis, unspecified allergic rhinitis trigger J30.2 Active 979610577 Problem Other obesity due to excess calories E66.09 Active 023080086 Problem Body mass index (BMI) of 33.0-33.9 in adult Z68.33 Active 212569782 Problem Acute seasonal allergic rhinitis, unspecified trigger J30.2 Active 223062048 Problem GERD (gastroesophageal reflux disease) K21.9 Active 813654753 Problem Iron deficiency anemia due to chronic blood loss D50.0 Active 694746786 Problem Acute left-sided back pain with sciatica M54.42 Active 948053301 Problem Abnormal mammogram of left breast R92.8 Active 998661159 Problem Type 2 diabetes mellitus with hyperglycemia E11.65 Active 522823916 Problem nursing home current use of insulin Z79.4 Active 256594107 Problem Type 2 diabetes mellitus without complication E11.9 Active 26066798 Problem Other chronic pain G89.29 Active 45786089 Problem Esophageal spasm K22.4 Active 19588248 Problem Ulcer of esophagus without bleeding K22.10 Active 85960064 ALLERGIES No Information ENCOUNTERS Encounter Location Date Diagnosis [facility] [address], [place] [address] Oct, [facility] [address], [place] [address] Oct, Type 2 diabetes mellitus with hyperglycemia E11.65 [facility] [address], [place] [address] Sep, Acute pain of left knee M25.562 [facility] [place] [address] [place] [address] [id number] [place] [address]27 [address]9305 Sep, Right anterior knee pain M25.561 [place] [address] [id number] [place] [address] 99636- 3540 Sep, Abnormal mammogram of left breast R92.8 [place] [address] [address] [id number] [place] [address] 20390- 3829 Sep, Abnormal mammogram of left breast R92.8 [place] [address] [id number] [place] [address] 56452- 8581 Aug, [place] [address] [address] [id number] [place] [address] 55054- 6210 Aug, Abnormal mammogram of left breast R92.8 [place] [address] [id number] [place] [address] 88817- 0782 Aug, [place] [address] [address] [id number] [place] [address] 16450- 7866 Aug, Encounter for well woman exam with routine gynecological exam Z01.419 ; Screen for STD (sexually transmitted disease) Z11.3 ; Screening breast examination Z12.31 ; Other obesity due to excess calories E66.09 and Body mass index (BMI) of 33.0-33.9 in adult Z68.33 [place] [address] [place] [address] 72494- 0763 July, Type 2 diabetes mellitus with hyperglycemia E11.65 and Iron deficiency anemia due to chronic blood loss D50.0 [place] [address] [id number] [place] [address] 73270- 9974 16 Jun, 2017 Acute left-sided back pain with sciatica M54.42 ; Type 2 diabetes mellitus without complications E11.9 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 [facility]ALK IN [facility] [id number] [place] [address] 94869 -0796 Jun, Dysuria R30.0 and Lumbar back pain M54.5 [facility] [id number] [place] [address] -8767 Feb, Acute seasonal allergic rhinitis, unspecified trigger J30.2 [facility] [id number] [place] [address] 61058- 1904 Feb, Acute posthemorrhagic anemia D62 [facility] [address] [address]- 95[address] 05 Feb, 2017 Acute posthemorrhagic anemia D62 [place] [address] 0[address]57- 8042 Feb, Type 2 diabetes mellitus without complication E11.9 and Dry skin L85.3 [place] [address] 94[address]- 6268 Dec, [facility] [address] 12944 -7964 Nov, Weakness R53.1 and GERD (gastroesophageal reflux disease) K21.9 [place] [address] 36799- 7832 Nov, [place] [address] [place] [id number] [place] [address] 65471- 9144 Sep, Type 2 diabetes mellitus without complications E11.9 [facility] [address] 27[address] -7311 July, Dysuria R30.0 and Acute cystitis with hematuria N30.01 [facility] [id number] [place] [address] 39941 -2492 Jun, Seasonal allergic rhinitis, unspecified allergic rhinitis trigger J30.2 [place] [id number] [place] [address] 57685- 8550 Jun, Hiatal hernia K44.9 and Ulcer of esophagus without bleeding K22.10 [place] [address] [place] [id number] [place] [address] 85311- 9074 07 Jun, 2016 Gastroesophageal reflux disease with esophagitis K21.0 [facility] [address] [id number] Jun, 2016 [facility] [address] 75391- 2690 May, Type 2 diabetes mellitus with hyperglycemia E11.65 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 [facility] [address] 53031- 7749 May, Other chronic pain G89.29 and Pain in left hip M25.552 [place] [address] 62283- 7758 13 Apr, 2016 Nausea R11.0 [place] [address] 49049- 3688 09 Apr, 2016 SOB (shortness of breath) R06.02 ; Coughing R05 and Type 2 diabetes mellitus without complication E11.9 [facility] [address] 62262 -0978 Apr, Bronchitis J40 [facility] [address] [address] [id number] [place] [address] 00079- 8677 Mar, Hiatal hernia K44.9 and Bronchitis J40 [facility] [address] [id number] [place] [address] 89982- 9764 Mar, [facility] [id number] [place] [address] 99414- 4285 Mar, [facility] [address] 05391- 7786 Jan, [facility] [id number] [place] [address] 05768- 6977 Dec, [facility] [address] 31638- 5321 Dec, Esophageal spasm K22.4 [place] [address] [place] [address] [id number] [place] [address] 50210- 9610 Dec, [facility] [place] [address] [id number] [place] [address] 49759 -0753 Dec, Right upper quadrant pain R10.11 and Abdominal pain, unspecified location R10.9 [facility] [place] [address] [id number] [place] [address] 41324 -3305 Dec, Right upper quadrant pain R10.11 [place] [address] [address] [id number] [place] [address] 11988- 6605 Nov, Type 2 diabetes mellitus without complication E11.9 and Right upper quadrant pain R10.11 [facility] [place] [address] [id number] [place] [address] 10119 -5182 Nov, Dysuria R30.0 and Abdominal pain, unspecified location R10.9 [place] [address] [id number] [place] [address] 00052- 1242 Aug, Chronic gastritis without bleeding, unspecified gastritis type K29.50 ; Dysuria R30.0 and Type 2 diabetes mellitus without complication E11.9 [place] [address] [id number] [place] [address] 20778- 4391 Aug, Gastroesophageal reflux disease, esophagitis presence not specified K21.9 and Acute cystitis with hematuria N30.01 [facility] IN [facility] [id number] [place] [address] 98673 -1815 07 Aug, 2015 Dysuria R30.0 [place] [address] [place] [id number] [place] [address] 32282- 8953 July, [place] [address] [address] [id number] [place] [address] 10470- 9168 Jun, [place] [address] [place] [address] [id number] [place] [address] 77103- 3270 May, Diabetes type 2, controlled E11.9 and Allergic rhinitis J30.9 [facility] [address] [id number] [place] [address] 94423- 2632 Apr, Type 2 diabetes mellitus without complication E11.9 and Cough R05 [facility] [address] [id number] [place] [address] 73796- 2573 Apr, Vertigo R42 and Non-intractable vomiting with nausea, vomiting of unspecified type R11.2 [facility] IN [facility] [address] [id number] [place] [address] 13698 -2814 Mar, Acute laryngopharyngitis J06.0 ; Acute diarrhea R19.7 and Acute bacterial sinusitis J01.90 [facility] [address] [place] [id number] [place] [address] 31098- 4314 Mar, Upper respiratory infection 465.9 [place] [address] [place] [address] [id number] [place] [address] 58267- 9743 Dec, Diabetes E11.9 [facility] [address] [place] [id number] [place] [address] 76141- 1014 Nov, Upper respiratory infection 465.9 [facility] [address] [id number] [place] [address] 36899- 4577 Sep, [facility] [address] [place] [id number] [place] [address] 03731- 6452 Sep, Diabetes 250.00 [facility] [address] [place] [id number] [place] [address] 40566- 8390 July, Diabetes mellitus without mention of complication, type II or unspecified type, uncontrolled 250.02 and Cervicalgia 723.1 [facility] [address] [id number] [place] [address] 19541- 7013 July, [facility] [address] [id number] [place] [address] 02682- 5294 Jun, [facility] [address] [place] [id number] [place] [address] 67867- 5981 Jun, [facility] [place] [facility] [address] [id number] [place] [address]- 8430 May, [facility] [place] [facility] [address] [id number] [place] [address]- 0367 May, [facility] [place] [facility] [address] [id number] [place] [address]- 5729 Apr, [facility] [place] [facility] [address] [id number] [place] [address]- 6094 Apr, [facility] [place] [facility] [address] [id number] [place] [address]- 9641 Apr, [facility] [place] [facility] [address] [id number] [place] [address]- 7967 Apr, [facility] [place] [facility] [address] [id number] [place] [address]- 0332 Mar, [facility] [place] [facility] [address] [id number] [place] [address]- 3744 Mar, [facility] [place] [facility] [address] [id number] [place] [address]- 3358 Feb, [facility] [place] [facility] [address] [id number] [place] [address]- 8054 Feb, [facility] [place] [facility] [address] [id number] [place] [address]- 7039 Jan, [facility] [place] [facility] [address] [id number] [place] [address]- 2681 Jan, [facility] [place] [facility] [address] [id number] [place] [address] Aug, [facility] [place] [facility] [address] [id number] [place] [address] Aug, [facility] [place] [facility] [address] [id number] [place] [address]- 9558 July, [facility] [place] [facility] [address] [id number], [place] [address]- 0129 July, [facility] [address] [id number] [place] [address]- 8559 Nov, [facility] [place] [facility] [address] [id number] [place] [address] Nov, [facility] [place] [facility] [address] [id number] [place] [address]- 7322 Nov, [facility] [place] [facility] [address] [id number] [place] [address]- 2171 Sep, [facility] [place] [facility] [address] [id number] [place] [address]- 3660 Aug, [facility] [place] [facility] [address] [id number] [place] [address]- 9125 July, [facility] [address] [id number] [place] [address]- 9158 Jun, [facility] [place] [facility] [address] [id number] [place] [address]- 7122 Jun, [facility] [place] [facility] [address] [id number] [place] [address]- 5072 Jun, [facility] [place] [facility] [address] [id number] [place] [address]- 2536 Jun, [facility] [place] [facility] [address] [id number] [place] [address]- 5872 May, [facility] [place] [facility] [address] [id number] [place] [address]- 6279 May, [facility] [place] [facility] [address] [id number] [place] [address]- 4530 Jan, [facility] [place] [facility] [address] [id number] [place] [address]- 9119 Jan, [facility] [place] [facility] [address] [id number] [place] [address]- 7964 Dec, [facility] [place] [facility] [address] [id number] [place] [address]- 0826 Dec, [facility] [place] [facility] [address] [id number] [place] [address]- 1798 Dec, [facility] [place] [facility] [address] [id number] [place] [address]- 1766 Dec, [facility] [place] [facility] [address] [id number] [place] [address]- 6796 Dec, [facility] [place] [facility] [address] [id number] [place] [address]- 8496 Dec, [facility] [place] [facility] [address] [facility] [id number] [place] [address]- 3616 Dec, [facility] [place] [facility] [address] [facility] [id number] [place] [address]- 0046 Aug, [facility] [address] [id number] [id number] Apr, [facility] [address] [facility] [id number], [place] [address]- 8009 Apr, [facility] [place] [facility] [address] [place] [address] [id number] [place] [address]- 7825 Apr, [facility] [address] [facility] [id number], [place] [address]- 6326 Apr, [facility] [place] [facility] [address] [id number] [place] [address]- 3636 Apr, [facility] [place] [facility] [address] [facility] [id number], [place] [address]- 0681 Dec, [facility] [place] [facility] [address] [facility] [id number] [place] [address]- 8816 14 Dec, 2010 [facility] [place] [facility] [address] [facility] [id number], [place] [address]- 4456 Dec, [facility] [place] [facility] [address] [facility] [id number], [place] [address]- 9261 Dec, [facility] [address] [facility] [id number], [place] [address]- 5570 Feb, [facility] [id number], [place] [address]- 2116 Feb, [facility] [address] [facility] [id number], [place] [address]- 0478 Feb, [facility] [id number], [place] [address]- 8479 Feb, [facility] [address] [facility] [id number], [place] [address]- 1926 Aug, [facility] [address] [facility] [id number], [place] [address]- 8463 May, IMMUNIZATIONS No Known Immunizations SOCIAL HISTORY Never Assessed REASON FOR VISIT Requests return call PLAN OF CARE VITAL SIGNS MEDICATIONS Unknown Medications RESULTS No Results PROCEDURES No Known procedures INSTRUCTIONS MEDICATIONS ADMINISTERED No Known Medications MEDICAL (GENERAL) HISTORY Type Description Date Medical History type II diabetes Medical History allergies Medical History asthma Medical History hyperlipidemia Medical History hiatal hernia Surgical History tear duct surgery as an infant Surgical History Left knee surgery 10/2012 Surgical History hital hernia repair 07/25/16 Surgical History breast biopsy 09/23/2017 Hospitalization History surgery Hospitalization History ER for a UTI 11/27/15 Hospitalization History Upper abdominal pain, [facility] 06/08/16
--- OUTSIDE RECORDS SUMMARY | 2018-02-16 16:27 | XMS REPORT ---
Author Author CHERRY MARTIN Organization [facility] Address [address] [place] [address] Care Team Providers Care Support Merchandiser Name Role Phone CHERRY MARTIN Unavailable PROBLEMS Type Condition ICD9-CM Code GYS34-QH Code Onset Dates Condition Status SNOMED Code Problem Gastroesophageal reflux disease with esophagitis K21.0 Active 384767058 Problem Type 2 diabetes mellitus without complications E11.9 Active 521994006 Problem Seasonal allergic rhinitis, unspecified allergic rhinitis trigger J30.2 Active 239403012 Problem Other obesity due to excess calories E66.09 Active 409153699 Problem Body mass index (BMI) of 33.0-33.9 in adult Z68.33 Active 992050580 Problem Acute seasonal allergic rhinitis, unspecified trigger J30.2 Active 112181511 Problem GERD (gastroesophageal reflux disease) K21.9 Active 997324600 Problem Iron deficiency anemia due to chronic blood loss D50.0 Active 994246639 Problem Acute left-sided back pain with sciatica M54.42 Active 821497640 Problem Abnormal mammogram of left breast R92.8 Active 349428880 Problem Type 2 diabetes mellitus with hyperglycemia E11.65 Active 731010889 Problem 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 [address] [facility] [id number] [address] Oct, [facility] [address] [facility] [id number], [place] [address] Oct, Type 2 diabetes mellitus with hyperglycemia E11.65 [facility] [address] [address] Sep, Acute pain of left knee M25.562 [facility] [id number] [place] [address]84 -3587 Sep, Right anterior knee pain M25.561 [facility] [address] [place] [id number] [place] [address] 11883- 7079 Sep, Abnormal mammogram of left breast R92.8 [place] [id number] [place] [address] 14953- 4902 Sep, Abnormal mammogram of left breast R92.8 [place] [id number] [place] [address] 08295- 1305 Aug, [place] [id number] [place] [address] 40881- 5346 Aug, Abnormal mammogram of left breast R92.8 [facility] [id number] [place] [address] 82977- 5102 Aug, [place] [id number] [place] [address] 88646- 7286 Aug, Encounter for well woman exam with routine gynecological exam Z01.419 ; Screen for STD (sexually transmitted disease) Z11.3 ; Screening breast examination Z12.31 ; Other obesity due to excess calories E66.09 and Body mass index (BMI) of 33.0-33.9 in adult Z68.33 [facility] [id number] [place] [address] 47843- 1993 July, Type 2 diabetes mellitus with hyperglycemia E11.65 and Iron deficiency anemia due to chronic blood loss D50.0 [place] [id number] [place] [address] 40473- 4835 Jun, Acute left-sided back pain with sciatica M54.42 ; Type 2 diabetes mellitus without complications E11.9 and snf current use of insulin Z79.4 [facility] [id number] [place] [address] 42731 -6598 Jun, Dysuria R30.0 and Lumbar back pain M54.5 [facility] [address] [address] Feb, Acute seasonal allergic rhinitis, unspecified trigger J30.2 [place] [address] 31138- 2077 Feb, Acute posthemorrhagic anemia D62 [place] [address] 90047- 0488 Feb, Acute posthemorrhagic anemia D62 [place] [address] 13102- 3457 Feb, Type 2 diabetes mellitus without complication E11.9 and Dry skin L85.3 [place] [address] 69117- 2075 Dec, [facility] [address] [address] Nov, Weakness R53.1 and GERD (gastroesophageal reflux disease) K21.9 [place] [address] 64484- 4609 Nov, [place] [address] 54307- 7644 Sep, Type 2 diabetes mellitus without complications E11.9 [facility] [address] 89[address]3663 July, Dysuria R30.0 and Acute cystitis with hematuria N30.01 [facility] [address] 60636 -7[address] Jun, Seasonal allergic rhinitis, unspecified allergic rhinitis trigger J30.2 [place] [address] 81373- 2534 Jun, Hiatal hernia K44.9 and Ulcer of esophagus without bleeding K22.10 [facility] [id number] [place] [address] 64116- 6821 07 Jun, 2016 Gastroesophageal reflux disease with esophagitis K21.0 [facility] [id number] [place] [address] [id number] 05 Jun, 2016 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 [address] 53926- 6692 09 Apr, 2016 SOB (shortness of breath) R06.02 ; Coughing R05 and Type 2 diabetes mellitus without complication E11.9 [facility] IN [facility] [id number] [place] [address] 91582 -4531 Apr, Bronchitis J40 [facility] [id number] [place] [address] 77713- 2884 Mar, Hiatal hernia K44.9 and Bronchitis J40 [facility] [id number] [place] [address] 80654- 9801 Mar, [facility] [address] 70156- 9240 Mar, [facility] [address] 73943- 9179 Jan, [facility] [id number] [place] [address] 87216- 9364 Dec, [place] [id number] [place] [address] 91613- 0763 Dec, Esophageal spasm K22.4 [facility] [id number] [place] [address] 81587- 5044 Dec, [facility] [id number] [place] [address] 79747 -8154 Dec, Right upper quadrant pain R10.11 and Abdominal pain, unspecified location R10.9 [facility] [id number] [place] [address] 86509 -9701 Dec, Right upper quadrant pain R10.11 [place] [id number] [place] [address] 85405- 1438 Nov, Type 2 diabetes mellitus without complication E11.9 and Right upper quadrant pain R10.11 [facility] [place] [id number] [place] [address] 59537 -7937 Nov, Dysuria R30.0 and Abdominal pain, unspecified location R10.9 [place] [id number] [place] [address] 78593- 1582 Aug, Chronic gastritis without bleeding, unspecified gastritis type K29.50 ; Dysuria R30.0 and Type 2 diabetes mellitus without complication E11.9 [place] [id number] [place] [address] 43715- 8393 Aug, Gastroesophageal reflux disease, esophagitis presence not specified K21.9 and Acute cystitis with hematuria N30.01 [facility] [id number] [place] [address] 15997 -8141 07 Aug, 2015 Dysuria R30.0 [place] [address] 07486- 3339 July, [place] [id number] [place] [address] 11126- 9677 Jun, [facility] [address] 67842- 6133 May, Diabetes type 2, controlled E11.9 and Allergic rhinitis J30.9 [facility] [id number] [place] [address] 50142- 1773 Apr, Type 2 diabetes mellitus without complication E11.9 and Cough R05 [facility] [id number] [place] [address] 08459- 3633 Apr, Vertigo R42 and Non-intractable vomiting with nausea, vomiting of unspecified type R11.2 [facility] IN [facility] [id number] [place] [address] 45109 -9905 Mar, Acute laryngopharyngitis J06.0 ; Acute diarrhea R19.7 and Acute bacterial sinusitis J01.90 [facility] [id number] [place] [address] 95174- 1134 Mar, Upper respiratory infection 465.9 [place] [id number] [place] [address] 44370- 1063 Dec, Diabetes E11.9 [facility] [id number] [place] [address] 85978- 3513 Nov, Upper respiratory infection 465.9 [facility] [id number] [place] [address] 23611- 9904 Sep, [facility] [id number] [place] [address] 03777- 3587 Sep, Diabetes 250.00 [facility] [id number] [place] [address] 94096- 7423 July, Diabetes mellitus without mention of complication, type II or unspecified type, uncontrolled 250.02 and Cervicalgia 723.1 [facility] [id number] [place] [address] 78658- 5366 July, [facility] [id number] [place] [address] 78188- 8560 Jun, [facility] [address] [place] [address]- 7479 Jun, [facility] [place] [facility] [address] [id number] [place] [address]- 9397 May, [facility] [place] [facility] [address] [id number] [place] [address]- 9147 May, [facility] [place] [facility] [address] [id number] [place] [address]- 2930 Apr, [facility] [place] [facility] [address] [id number] [place] [address]- 4487 Apr, [facility] [place] [facility] [address] [id number] [place] [address]- 6765 Apr, [facility] [place] [facility] [address] [id number] [place] [address]- 3387 Apr, [facility] [place] [facility] [address] [id number] [place] [address]- 6522 Mar, [facility] [place] [facility] [address] [id number] [place] [address]- 4390 Mar, [facility] [place] [facility] [address] [id number] [place] [address]- 6892 Feb, [facility] [place] [facility] [address] [id number] [place] [address]- 1107 Feb, [facility] [place] [facility] [address] [id number] [place] [address]- 8051 Jan, [facility] [place] [facility] [address] [id number] [place] [address]- 3048 Jan, [facility] [place] [facility] [address] [id number] [place] [address]- 7957 Aug, [facility] [place] [facility] [address] [id number] [place] [address]- 0511 Aug, [facility] [place] [facility] [address] [id number] [place] [address]- 4611 July, [facility] [place] [facility] [address] [id number] [place]- 6096 July, [facility] [address] [id number] [place] [address]- 3109 Nov, [facility] [address] [id number] [place] [address] Nov, [facility] [address] [id number] [place] [address]- 7483 Nov, [facility] [address] [id number] [place] 9[address] Sep, [facility] [address] [id number] [place] [address]- 7878 Aug, [facility] [address] [id number] [place] [address]- 0881 July, [facility] [address] [id number] [place] [address]- 8844 Jun, [facility] [address] [id number] [place] [address]- 5179 Jun, [facility] [address] [id number] [place] [address]- 1146 Jun, [facility] [address] [id number] [place] [address]- 9234 Jun, [facility] [address] [id number] [place] [address]- 7245 May, [facility] [place] [facility] [address] [id number] [place] 3715 May, [facility] [place] [facility] [address] [id number] [place] [address]- 0632 Jan, [facility] [place] [facility] [address] [id number] [place] [address]- 1814 Jan, [facility] [address] [id number], [place] [address]- 2636 Dec, [facility] [place] [facility] [address] [id number] [place] [address]- 8720 Dec, [facility] [place] [facility] [address] [id number], [place] [address]- 2226 Dec, [facility] [place] [facility] [address] [id number] [place] [address]- 7576 Dec, [facility] [place] [facility] [address] [id number] [place] [address]- 4606 Dec, [facility] [place] [facility] [address] [id number] [place] [address]- 1988 Dec, [facility] [place] [facility] [address] [id number] [place] [address]- 8848 Dec, [facility] [place] [facility] [address] [facility] [id number], [place] [address]- 9033 Aug, [facility] [address] [id number] [id number] Apr, [facility] [place] [facility] [address] [id number], [place] [address]- 5306 Apr, [facility] [place] [facility] [address] [id number] [place] [address]- 8412 Apr, [facility] [place] [facility] [address] [id number], [place] [address]- 9696 Apr, [facility] [place] [facility] [address] [id number], [place] [address]- 7423 Apr, [facility] [place] [facility] [address] [id number], [place] [address]- 5336 Dec, [facility] [place] [facility] [address] [id number], [place] [address]- 9040 14 Dec, 2010 [facility] [place] [facility] [address] [id number], [place] [address]- 9993 Dec, [facility] [place] [facility] [address] [facility] [id number][place]- 8557 11 Dec, 2010 [facility] [address] [address] [id number] [address]- 2952 19 Feb, 2010 [facility] [address] [id number] 8515 16 Feb, 2010 [facility] [address] [id number] 5824 Feb, [facility] [address] [id number] 0096 Feb, [facility] [address] [id number] 6528 Aug, [facility] [address] [id number], [place] [address]- 2395 May, IMMUNIZATIONS No Known Immunizations SOCIAL HISTORY Never Assessed REASON FOR VISIT right Swollen knee that [facility] HYDE PLAN OF CARE VITAL SIGNS Height 63 in 2017-09-30 Weight 184.7 lbs 2017-09-30 Temperature 97.8 degrees Fahrenheit 2017-09-30 Heart Rate 82 bpm 2017-09-30 Respiratory Rate 18 2017-09-30 BMI 32.71 kg/m2 2017-09-30 Blood pressure systolic 114 mmHg 2017-09-30 Blood pressure diastolic 82 mmHg 2017-09-30 MEDICATIONS Medication Instructions Dosage Frequency Start Date End Date Duration Status Zyrtec Allergy 10 MG Orally Once a day 1 tablet 24h Active Ankit Contour Test 1 In Vitro 2 times a day as directed 12h Apr, Active Albuterol Sulfate HFA 108 (90 Base) MCG/ACT Inhalation every 4 hrs 2 puffs as needed 4h Active Ferrous Sulfate 325 (65 Fe) MG Orally Once a day 1 tablet 24h July, 30 day(s) Not-Taking Ketorolac Tromethamine 10 mg Orally every 6 hrs 1 tablet with food or milk as needed 6h Sep, Oct, 5 day(s) Active Zofran 8 MG Orally every 8 hours as needed 1 tablet Nov, 30 day(s) Active Lantus SoloStar 100 UNIT/ML Subcutaneous Once a day 50 units 24h Active Metformin HCl 1000 MG Orally Twice a day 1 tablet with meals 12h May, 30 day(s) Active Acetaminophen 500 MG Orally every 6 hrs 2 capsules as needed 6h Active RESULTS No Results PROCEDURES No Known [...]
--- OUTSIDE RECORDS SUMMARY | 2018-02-16 16:27 | XMS REPORT ---
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 Name Role Phone CHERRY MARTIN Unavailable PROBLEMS Type Condition ICD9-CM Code [id number] Code Onset Dates Condition Status SNOMED Code Problem Gastroesophageal reflux disease with esophagitis K21.0 Active 622969825 Problem Type 2 diabetes mellitus without complications E11.9 Active 770879198 Problem Seasonal allergic rhinitis, unspecified allergic rhinitis trigger J30.2 Active 830543931 Problem Other obesity due to excess calories E66.09 Active 399944691 Problem Body mass index (BMI) of 33.0-33.9 in adult Z68.33 Active 452277571 Problem Acute seasonal allergic rhinitis, unspecified trigger J30.2 Active 285650819 Problem GERD (gastroesophageal reflux disease) K21.9 Active 294266006 Problem Iron deficiency anemia due to chronic blood loss D50.0 Active 679561323 Problem Acute left-sided back pain with sciatica M54.42 Active 892397630 Problem Abnormal mammogram of left breast R92.8 Active 817005749 Problem Type 2 diabetes mellitus with hyperglycemia E11.65 Active 004955357 Problem 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 [id number] [address] Oct, [facility] [address] [facility] [id number], [place] [address] Oct, Type 2 diabetes mellitus with hyperglycemia E11.65 [facility] [address] [address] Sep, Acute pain of left knee M25.562 [facility] [address] [place] [address]17 Sep, Right anterior knee pain M25.561 [facility] [address] [place] [id number] [place] [address] 86182- 9595 Sep, Abnormal mammogram of left breast R92.8 [place] [id number] [place] [address] 38158- 0522 Sep, Abnormal mammogram of left breast R92.8 [place] [id number] [place] [address] 14892- 1976 Aug, [place] [id number] [place] [address] 98909- 5064 Aug, Abnormal mammogram of left breast R92.8 [facility] [id number] [place] [address] 10255- 9925 Aug, [place] [id number] [place] [address] 78532- 8088 Aug, Encounter for well woman exam with routine gynecological exam Z01.419 ; Screen for STD (sexually transmitted disease) Z11.3 ; Screening breast examination Z12.31 ; Other obesity due to excess calories E66.09 and Body mass index (BMI) of 33.0-33.9 in adult Z68.33 [facility] [address] [place] [address] 95132- 4182 July, Type 2 diabetes mellitus with hyperglycemia E11.65 and Iron deficiency anemia due to chronic blood loss D50.0 [place] [address] [place] [address] 21262- 3598 Jun, Acute left-sided back pain with sciatica M54.42 ; Type 2 diabetes mellitus without complications E11.9 and 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 current use of insulin Z79.4 [facility] [id number] [place] [address]886 Jun, Dysuria R30.0 and Lumbar back pain M54.5 [facility] [address] [address] Feb, Acute seasonal allergic rhinitis, unspecified trigger J30.2 [place] [address] [address]- [address] Feb, Acute posthemorrhagic anemia D62 [place] [address] [address]39- 2917 Feb, Acute posthemorrhagic anemia D62 [place] [address] 7[address]20- 1540 Feb, Type 2 diabetes mellitus without complication E11.9 and Dry skin L85.3 [place] [address] [address]89[address]605 Dec, [facility] [address] [address] Nov, Weakness R53.1 and GERD (gastroesophageal reflux disease) K21.9 [place] [address] 06[address]- 5811 Nov, [place] [address] [address]- 9144 Sep, Type 2 diabetes mellitus without complications E11.9 [facility] [address] [address] July, Dysuria R30.0 and Acute cystitis with hematuria N30.01 [facility] [address] [address] Jun, Seasonal allergic rhinitis, unspecified allergic rhinitis trigger J30.2 [place] [address] 27440- 7031 Jun, Hiatal hernia K44.9 and Ulcer of esophagus without bleeding K22.10 [facility] [id number] [place] [address] 17519- 3864 07 Jun, 2016 Gastroesophageal reflux disease with esophagitis K21.0 [facility] [place] [id number] [place] [address] [id number] Jun, 2016 [facility] [address] 00873[address] 9410 May, Type 2 diabetes mellitus with hyperglycemia E11.65 and 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 [place] [address] 9[address]50- 5127 May, Other chronic pain G89.29 and Pain in left hip M25.552 [place] [address] [address]38- 4396 13 Apr, 2016 Nausea R11.0 [facility] [address] [address]35- 8437 09 Apr, 2016 SOB (shortness of breath) R06.02 ; Coughing R05 and Type 2 diabetes mellitus without complication E11.9 [facility] [id number] [place] [address] 70648 -2396 Apr, Bronchitis J40 [facility] [id number] [place] [address] 53148- 8470 Mar, Hiatal hernia K44.9 and Bronchitis J40 [facility] [id number] [place] [address] 91200- 2800 Mar, [facility] [address] [address] 9429 Mar, [facility] [address] [address] 8633 Jan, [facility] [id number] [place] [address] 42998- 2221 Dec, [place] [id number] [place] [address] 14113- 1028 Dec, Esophageal spasm K22.4 [facility] [id number] [place] [address] 35187- 6801 Dec, [facility] [id number] [place] [address] 99770 -1412 Dec, Right upper quadrant pain R10.11 and Abdominal pain, unspecified location R10.9 [facility] [id number] [place] [address] 72534 -4425 Dec, Right upper quadrant pain R10.11 [place] [id number] [place] [address] 41307- 1082 Nov, Type 2 diabetes mellitus without complication E11.9 and Right upper quadrant pain R10.11 [facility] [place] [id number] [place] [address] 23392 -4073 Nov, Dysuria R30.0 and Abdominal pain, unspecified location R10.9 [place] [id number] [place] [address] 40848- 1582 Aug, Chronic gastritis without bleeding, unspecified gastritis type K29.50 ; Dysuria R30.0 and Type 2 diabetes mellitus without complication E11.9 [place] [id number] [place] [address] 58623- 7448 Aug, Gastroesophageal reflux disease, esophagitis presence not specified K21.9 and Acute cystitis with hematuria N30.01 [facility] [id number] [place] [address] 60680 -1519 07 Aug, 2015 Dysuria R30.0 [place] [address] 14744- 4023 July, [place] [id number] [place] [address] 81898- 4841 Jun, [facility] [address] 97242- 1097 May, Diabetes type 2, controlled E11.9 and Allergic rhinitis J30.9 [facility] [id number] [place] [address] 87020- 4129 Apr, Type 2 diabetes mellitus without complication E11.9 and Cough R05 [facility] [id number] [place] [address] 13198- 4141 Apr, Vertigo R42 and Non-intractable vomiting with nausea, vomiting of unspecified type R11.2 [facility] [id number] [place] [address] 92500 -0049 Mar, Acute laryngopharyngitis J06.0 ; Acute diarrhea R19.7 and Acute bacterial sinusitis J01.90 [facility] [id number] [place] [address] 47386- 6757 Mar, Upper respiratory infection 465.9 [place] [id number] [place] [address] 80898- 3424 Dec, Diabetes E11.9 [facility] [id number] [place] [address] 46048- 3998 Nov, Upper respiratory infection 465.9 [facility] [id number] [place] [address] 38591- 0723 Sep, [facility] [id number] [place] [address] 50409- 4418 Sep, Diabetes 250.00 [facility] [address] [place] [address] 20948- 1715 July, Diabetes mellitus without mention of complication, type II or unspecified type, uncontrolled 250.02 and Cervicalgia 723.1 [facility] [id number] [place] [address] 41680- 9544 July, [facility] [id number] [place] [address] 01230- 8041 Jun, [facility] [address] [place] [address]- 5980 Jun, [facility] [place] [facility] [address] [id number] [place] [address]- 5054 May, [facility] [place] [facility] [address] [id number] [place] [address]- 5141 May, [facility] [place] [facility] [address] [id number] [place] [address]- 6058 Apr, [facility] [place] [facility] [address] [id number] [place] [address]- 2004 Apr, [facility] [place] [facility] [address] [id number] [place] [address]- 3050 Apr, [facility] [place] [facility] [address] [id number] [place] [address]- 0441 Apr, [facility] [place] [facility] [address] [id number] [place] [address]- 9434 Mar, [facility] [place] [facility] [address] [id number] [place] [address]- 2492 Mar, [facility] [place] [facility] [address] [id number] [place] [address]- 4622 Feb, [facility] [place] [facility] [address] [id number] [place] [address]- 3908 Feb, [facility] [place] [facility] [address] [id number] [place] [address]- 8229 Jan, [facility] [place] [facility] [address] [id number] [place] [address]- 4602 Jan, [facility] [place] [facility] [address] [id number] [place] [address]- 0409 Aug, [facility] [place] [facility] [address] [id number] [place] [address]- 8553 Aug, [facility] [place] [facility] [address] [id number] [place] [address]- 3562 July, [facility] [place] [facility] [address] [id number] [place] [address] July, [facility] [address] [id number] [place] [address]- 3383 Nov, [facility] [address] [id number] [place] [address] Nov, [facility] [address] [id number] [place] [address]- 1049 Nov, [facility] [address] [id number] [place] [address] Sep, [facility] [address] [id number] [place] [address]- 2716 Aug, [facility] [address] [id number] [place] [address]- 7111 July, [facility] [address] [id number] [place] [address]- 1427 Jun, [facility] [address] [id number] [place] [address]- 3809 Jun, [facility] [address] [id number] [place] [address]- 5136 Jun, [facility] [address] [id number] [place] [address]- 8676 Jun, [facility] [address] [id number] [place] [address]- 2811 May, [facility] [place] [facility] [address] [id number] [place] [address] May, [facility] [place] [facility] [address] [id number] [place] [address]- 2895 Jan, [facility] [place] [facility] [address] [id number] [place] [address]- 5621 Jan, [facility] [address] [id number], [place] [address]- 4396 Dec, [facility] [place] [facility] [address] [id number] [place] [address]- 2289 Dec, [facility] [place] [facility] [address] [id number], [place] [address]- 9426 Dec, [facility] [place] [facility] [address] [id number] [place] [address]- 8286 Dec, [facility] [place] [facility] [address] [id number] [place] [address]- 6680 Dec, [facility] [place] [facility] [address] [id number] [place] [address]- 7067 Dec, [facility] [place] [facility] [address] [id number] [place] [address]- 5804 Dec, [facility] [place] [facility] [address] [facility] [id number], [place] [address]- 9401 Aug, [facility] [address] [id number] [address] Apr, [facility] [place] [facility] [address] [id number], [place] [address]- 9837 Apr, [facility] [place] [facility] [address] [id number] [place] [address]- 6107 Apr, [facility] [place] [facility] [address] [id number], [place] [address]- 9216 Apr, [facility] [place] [facility] [address] [id number], [place] [address]- 0713 Apr, [facility] [place] [facility] [address] [id number], [place] [address]- 6386 Dec, [facility] [place] [facility] [address] [id number], [place] [address]- 7781 14 Dec, 2010 [facility] [place] [facility] [address] [id number], [place] [address]- 7327 Dec, [facility] [place] [facility] [address] [id number], [place] [address]- 3976 11 Dec, 2010 [facility] [address] [id number], [place] [address]- 6203 Feb, [facility] [address] [address]64 Feb, [facility] [address], [place] [address]- 1688 Feb, [facility] [address] 8634 Feb, [facility] [address] 75[address] Aug, [facility] [address], [place] [address]- 8734 May, IMMUNIZATIONS No Known Immunizations SOCIAL HISTORY Never Assessed REASON FOR VISIT Diabetes, no additional concerns at this point-Lance HYDE PLAN OF CARE Activity Details Follow Up 4 Months Reason:dm2 VITAL SIGNS Height 63 in 2017-10-11 Weight 188.8 lbs 2017-10-11 Temperature 97.7 degrees Fahrenheit 2017-10-11 Heart Rate 76 bpm 2017-10-11 Respiratory Rate 18 2017-10-11 BMI 33.44 kg/m2 2017-10-11 Blood pressure systolic 132 mmHg 2017-10-11 Blood pressure diastolic 80 mmHg 2017-10-11 MEDICATIONS Medication Instructions Dosage Frequency Start Date End Date Duration Status Lantus SoloStar 100 UNIT/ML Subcutaneous Once a day 50 units 24h Active Metformin HCl 1000 MG Orally Twice a day 1 tablet with meals 12h May, 30 day(s) Active Ankit Contour Test 1 In Vitro 2 times a day as directed 12h Apr, Active Albuterol Sulfate HFA 108 (90 Base) MCG/ACT Inhalation every 4 hrs 2 puffs as needed 4h Active Acetaminophen 500 MG Orally every 6 hrs 2 capsules as needed 6h Active Zofran 8 MG Orally every 8 hours as needed 1 tablet Nov, 30 day(s) Active Ferrous Sulfate 325 (65 Fe) MG Orally Once a day 1 tablet 24h July, 30 day(s) Not-Taking Zyrtec Allergy 10 MG Orally Once a day 1 tablet 24h Active RESULTS Name Result Date Reference Range A1C (IN HOUSE) 2017-10-11 A1C IN HOUSE 6.9 4.3 - 5.6 % Previous A1c 8.0 Lot [id number] Exp date 05/2019 MICROALBUMIN, URINE (IN HOUSE) 2017-10-11 MICROALBUMIN adnormal Lot # [id number] Exp date 08/2018 Clarity clear Color yellow ALB 10 CRE 50 A:C (IN HOUSE) 30-300 Control normal Control Lot # Exp date PROCEDURES Procedure Date Ordered Result Body Site GLYCATED HEMOGLOBIN TEST Oct 11, 2017 MICROALBUMIN, SEMIQUANT Oct 11, 2017 INSTRUCTIONS MEDICATIONS ADMINISTERED No Known Medications MEDICAL [...] UTI 11/27/15 Hospitalization History Upper abdominal pain, [facility] 06/08/16
--- OUTSIDE RECORDS SUMMARY | 2018-02-16 16:28 | XMS REPORT ---
Author Author MARIBETH RENEA Organization [facility] Address [address] [place] [address] Care Team Providers Care Dinkey Engineer Name Role Phone STAHLRENEA Tao Unavailable PROBLEMS Type Condition ICD9-CM Code COL20-QU Code Onset Dates Condition Status SNOMED Code Problem Gastroesophageal reflux disease with esophagitis K21.0 Active 318249450 Problem Type 2 diabetes mellitus without complications E11.9 Active 297684963 Problem Seasonal allergic rhinitis, unspecified allergic rhinitis trigger J30.2 Active 754593302 Problem Other obesity due to excess calories E66.09 Active 339041153 Problem Body mass index (BMI) of 33.0-33.9 in adult Z68.33 Active 868685100 Problem Acute seasonal allergic rhinitis, unspecified trigger J30.2 Active 064587147 Problem GERD (gastroesophageal reflux disease) K21.9 Active 763795532 Problem Iron deficiency anemia due to chronic blood loss D50.0 Active 137914941 Problem Acute left-sided back pain with sciatica M54.42 Active 932274134 Problem Abnormal mammogram of left breast R92.8 Active 559276760 Problem Type 2 diabetes mellitus with hyperglycemia E11.65 Active 957126727 Problem [facility] current use of insulin Z79.4 Active 828599824 Problem Type 2 diabetes mellitus without complication E11.9 Active 49872647 Problem Other chronic pain G89.29 Active 51923004 Problem Esophageal spasm K22.4 Active 94973954 Problem Ulcer of esophagus without bleeding K22.10 Active 29411784 ALLERGIES No Information ENCOUNTERS Encounter Location Date Diagnosis [facility] [address], [place] [address] Oct, [facility] [address], [place] [address] Oct, Type 2 diabetes mellitus with hyperglycemia E11.65 [facility] [address], [place] [address] Sep, Acute pain of left knee M25.562 [facility] [place] [address] [place] [id number] [place] [address]336 Sep, Right anterior knee pain M25.561 [place] [address] [place] [id number] [place] [address] 83138- 3473 Sep, Abnormal mammogram of left breast R92.8 [place] [address] [place] [id number] [place] [address] 56640- 8549 Sep, Abnormal mammogram of left breast R92.8 [place] [address] [place] [id number] [place] [address] 62022- 2665 Aug, [place] [address] [place] [id number] [place] [address] 65643- 4524 Aug, Abnormal mammogram of left breast R92.8 [place] [address] [place] [id number] [place] [address] 41719- 9790 Aug, [place] [address] [place] [id number] [place] [address] 94718- 2708 Aug, Encounter for well woman exam with routine gynecological exam Z01.419 ; Screen for STD (sexually transmitted disease) Z11.3 ; Screening breast examination Z12.31 ; Other obesity due to excess calories E66.09 and Body mass index (BMI) of 33.0-33.9 in adult Z68.33 [place] [id number] [place] [address] 20445- 7470 July, Type 2 diabetes mellitus with hyperglycemia E11.65 and Iron deficiency anemia due to chronic blood loss D50.0 [place] [address] [place] [id number] [place] [address] 09164- 1061 16 Jun, 2017 Acute left-sided back pain with sciatica M54.42 ; Type 2 diabetes mellitus without complications E11.9 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 [facility] IN [facility] [id number] [place] [address] 63058 -2807 Jun, Dysuria R30.0 and Lumbar back pain M54.5 [facility] [id number] [place] [address] 79416 -[address] Feb, Acute seasonal allergic rhinitis, unspecified trigger J30.2 [facility] [id number] [place] [address] 67664- 1942 Feb, Acute posthemorrhagic anemia D62 [facility] [address] [address]- 7228 05 Feb, 2017 Acute posthemorrhagic anemia D62 [place] [address] [address]- 7321 Feb, Type 2 diabetes mellitus without complication E11.9 and Dry skin L85.3 [place] [address] [address]- [address] Dec, [facility] [address] 23920 [address]8226 Nov, Weakness R53.1 and GERD (gastroesophageal reflux disease) K21.9 [place] [address] 82463- 8351 Nov, [place] [address] [place] [id number] [place] [address] 41193- 9419 Sep, Type 2 diabetes mellitus without complications E11.9 [facility] [address] 47[address]8651 July, Dysuria R30.0 and Acute cystitis with hematuria N30.01 [facility] [id number] [place] [address] Jun, Seasonal allergic rhinitis, unspecified allergic rhinitis trigger J30.2 [place] [address] [place] [id number] [place] [address] 81298- 0259 Jun, Hiatal hernia K44.9 and Ulcer of esophagus without bleeding K22.10 [place] [address] [place] [id number] [place] [address] 79855- 7894 07 Jun, 2016 Gastroesophageal reflux disease with esophagitis K21.0 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 [facility] [address] 83501- 4835 May, Other chronic pain G89.29 and Pain in left hip M25.552 [place] [address] 17228- 5769 13 Apr, 2016 Nausea R11.0 [place] [address] 33579- 9765 09 Apr, 2016 SOB (shortness of breath) R06.02 ; Coughing R05 and Type 2 diabetes mellitus without complication E11.9 [facility] [address] 19128 -6315 Apr, Bronchitis J40 [facility] [address] [place] [id number] [place] [address] 40028- 7287 Mar, Hiatal hernia K44.9 and Bronchitis J40 [facility] [address] [place] [id number] [place] [address] 92916- 4318 Mar, [facility] [address] [place] [id number] [place] [address] 64301- 4180 Mar, [facility] [address] [address]75- 6468 Jan, [facility] [address] [place] [id number] [place] [address] 20368- 0251 Dec, [facility] [address] 05727- 3278 Dec, Esophageal spasm K22.4 [place] [address] [place] [id number] [place] [address] 83501- 0021 Dec, [facility] [place] [address] [place] [id number] [place] [address] 67076 -9595 Dec, Right upper quadrant pain R10.11 and Abdominal pain, unspecified location R10.9 [facility] [place] [address] [place] [address] [id number] [place] [address] 53153 -8387 Dec, Right upper quadrant pain R10.11 [place] [address] [place] [id number] [place] [address] 14699- 2909 Nov, Type 2 diabetes mellitus without complication E11.9 and Right upper quadrant pain R10.11 [facility] IN [place] [address] [place] [id number] [place] [address] 36306 -7710 Nov, Dysuria R30.0 and Abdominal pain, unspecified location R10.9 [place] [address] [place] [address] [id number] [place] [address] 99427- 4710 Aug, Chronic gastritis without bleeding, unspecified gastritis type K29.50 ; Dysuria R30.0 and Type 2 diabetes mellitus without complication E11.9 [place] [address] [place] [address] [id number] [place] [address] 17029- 6981 Aug, Gastroesophageal reflux disease, esophagitis presence not specified K21.9 and Acute cystitis with hematuria N30.01 [facility] IN [facility] [id number] [place] [address] 33327 -0319 07 Aug, 2015 Dysuria R30.0 [place] [address] [place] [id number] [place] [address] 74823- 0075 July, [place] [address] [place] [id number] [place] [address] 95679- 3820 Jun, [place] [address] [place] [id number] [place] [address] 01296- 8890 May, Diabetes type 2, controlled E11.9 and Allergic rhinitis J30.9 [facility] [address] [place] [address] [id number] [place] [address] 19175- 2970 Apr, Type 2 diabetes mellitus without complication E11.9 and Cough R05 [facility] [address] [place] [id number] [place] [address] 94650- 1281 Apr, Vertigo R42 and Non-intractable vomiting with nausea, vomiting of unspecified type R11.2 [facility] IN [facility] [address] [place] [id number] [place] [address] 50573 -1764 Mar, Acute laryngopharyngitis J06.0 ; Acute diarrhea R19.7 and Acute bacterial sinusitis J01.90 [facility] [address] [place] [id number] [place] [address] 19375- 4221 Mar, Upper respiratory infection 465.9 [place] [address] [place] [id number] [place] [address] 51238- 2152 Dec, Diabetes E11.9 [facility] [address] [place] [id number] [place] [address] 32811- 1446 Nov, Upper respiratory infection 465.9 [facility] [address] [place] [id number] [place] [address] 49105- 3301 Sep, [facility] [address] [place] [id number] [place] [address] 32445- 6536 Sep, Diabetes 250.00 [facility] [address] [place] [id number] [place] [address] 51906- 9558 July, Diabetes mellitus without mention of complication, type II or unspecified type, uncontrolled 250.02 and Cervicalgia 723.1 [facility] [address] [place] [id number] [place] [address] 12262- 4963 July, [facility] [address] [place] [id number] [place] [address] 35757- 4500 Jun, [facility] [address] [place] [id number] [place] [address] 80519- 1726 Jun, [facility] [place] [facility] [address] [id number] [place] [address]- 5211 May, [facility] [place] [facility] [address] [id number] [place] [address]- 4609 May, [facility] [place] [facility] [address] [id number] [place] [address]- 6913 Apr, [facility] [place] [facility] [address] [id number] [place] [address]- 6725 Apr, [facility] [place] [facility] [address] [id number] [place] [address]- 8188 Apr, [facility] [place] [facility] [address] [id number] [place] [address]- 5765 Apr, [facility] [place] [facility] [address] [id number] [place] [address]- 2686 Mar, [facility] [place] [facility] [address] [id number] [place] [address]- 0041 Mar, [facility] [place] [facility] [address] [id number] [place] [address]- 3744 Feb, [facility] [place] [facility] [address] [id number] [place] [address]- 1488 Feb, [facility] [place] [facility] [address] [id number] [place] [address]- 7078 Jan, [facility] [place] [facility] [address] [id number] [place] [address]- 1863 Jan, [facility] [place] [facility] [address] [id number] [place] [address] Aug, [facility] [place] [facility] [address] [id number] [place] 6868 Aug, [facility] [place] [facility] [address] [id number] [place] [address]- 4139 July, [facility] [place] [facility] [address] [id number], [place] [address]- 8815 July, [facility] [place] [facility] [address] [id number] [place] [address]- 2037 Nov, [facility] [place] [facility] [address] [id number] [place] [address]27 Nov, [facility] [place] [facility] [address] [id number] [place] [address]- 4888 Nov, [facility] [place] [facility] [address] [id number] [place] [address]- 3846 Sep, [facility] [place] [facility] [address] [id number] [place] [address]- 4619 Aug, [facility] [place] [facility] [address] [id number] [place] [address]- 2359 July, [facility] [address] [id number] [place] [address]- 4211 Jun, [facility] [place] [facility] [address] [id number] [place] [address]- 3761 Jun, [facility] [place] [facility] [address] [id number] [place] [address]- 6127 Jun, [facility] [place] [facility] [address] [id number] [place] [address]- 4303 Jun, [facility] [place] [facility] [address] [id number] [place] [address]- 0641 May, [facility] [place] [facility] [address] [id number] [place] [address]- 0887 May, [facility] [place] [facility] [address] [id number] [place] [address]- 7451 Jan, [facility] [place] [facility] [address] [id number] [place] [address]- 4003 Jan, [facility] [place] [facility] [address] [id number] [place] [address]- 4982 Dec, [facility] [place] [facility] [address] [id number] [place] [address]- 5766 Dec, [facility] [place] [facility] [address] [id number] [place] [address]- 9157 Dec, [facility] [place] [facility] [address] [id number] [place] [address]- 7096 Dec, [facility] [place] [facility] [address] [id number] [place] [address]- 0116 Dec, [facility] [place] [facility] [address] [id number] [place] [address]- 9296 Dec, [facility] [place] [facility] [address] [facility] [id number] [place] [address]- 5436 Dec, [facility] [place] [facility] [address] [facility] [id number] [place] [address]- 5906 Aug, [facility] [address] [id number] [id number] Apr, [facility] [address] [facility] [id number], [place] [address]- 5924 Apr, [facility] [place] [facility] [address] [place] [id number] [place] [address]- 7389 Apr, [facility] [address] [facility] [id number], [place] [address]- 7446 Apr, [facility] [place] [facility] [address] [id number] [place] [address]- 3406 Apr, [facility] [place] [facility] [address] [facility] [id number], [place] [address]- 6496 Dec, [facility] [place] [facility] [address] [facility] [id number] [place] [address]- 9866 14 Dec, 2010 [facility] [place] [facility] [address] [facility] [id number], [place] [address]- 3146 Dec, [facility] [place] [facility] [address] [facility] [id number], [place] [address]- 4239 Dec, [facility] [address] [facility] [id number], [place] [address]- 6648 Feb, [facility] [id number], [place] [address]- 1686 Feb, [facility] [id number], [place] [address]- 9940 Feb, [facility] [id number], [place] [address] 2541 Feb, [facility] [id number], [place] [address]- 0839 Aug, [facility] [id number], [place] [address]- 1834 May, IMMUNIZATIONS No Known Immunizations SOCIAL HISTORY Never Assessed REASON FOR VISIT biopsy PLAN OF CARE VITAL SIGNS MEDICATIONS Unknown [...] UTI 11/27/15 Hospitalization History Upper abdominal pain, [facility] 06/08/16
--- OUTSIDE RECORDS SUMMARY | 2018-02-16 16:28 | XMS REPORT ---
Author Author MARIBETH RENEA Organization [facility] Address [address] [place] [address] Care Team Providers Care Certified Surgical Technologist Name Role Phone STAHLRENEA Tao Unavailable PROBLEMS Type Condition ICD9-CM Code SJU07-[id number] Code Onset Dates Condition Status SNOMED Code Problem Gastroesophageal reflux disease with esophagitis K21.0 Active 038013877 Problem Type 2 diabetes mellitus without complications E11.9 Active 049820378 Problem Seasonal allergic rhinitis, unspecified allergic rhinitis trigger J30.2 Active 637700581 Problem Other obesity due to excess calories E66.09 Active 813747159 Problem Body mass index (BMI) of 33.0-33.9 in adult Z68.33 Active 692542235 Problem Acute seasonal allergic rhinitis, unspecified trigger J30.2 Active 039882306 Problem GERD (gastroesophageal reflux disease) K21.9 Active 317817009 Problem Iron deficiency anemia due to chronic blood loss D50.0 Active 755182943 Problem Acute left-sided back pain with sciatica M54.42 Active 313593725 Problem Abnormal mammogram of left breast R92.8 Active 939970304 Problem Type 2 diabetes mellitus with hyperglycemia E11.65 Active 767235653 Problem detention current use of insulin Z79.4 Active 307360298 Problem Type 2 diabetes mellitus without complication E11.9 Active 51576570 Problem Other chronic pain G89.29 Active 43370542 Problem Esophageal spasm K22.4 Active 04193117 Problem Ulcer of esophagus without bleeding K22.10 Active 69706223 ALLERGIES No Information ENCOUNTERS Encounter Location Date Diagnosis [facility] [id number] [address] Oct, [facility] [id number], [place] [address] Oct, Type 2 diabetes mellitus with hyperglycemia E11.65 [facility] [id number] [address] Sep, Acute pain of left knee M25.562 [facility] WALK IN [place] [address] [place] [id number] [place] [address]342 -5956 Sep, Right anterior knee pain M25.561 [place] [id number] [place] [address] 01369- 1065 Sep, Abnormal mammogram of left breast R92.8 [place] [address] [place] [id number] [place] [address] 26319- 5944 Sep, Abnormal mammogram of left breast R92.8 [place] [address] [place] [id number] [place] [address] 66338- 8350 Aug, [place] [address] [place] [id number] [place] [address] 09037- 0525 Aug, Abnormal mammogram of left breast R92.8 [place] [address] [place] [id number] [place] [address] 08376- 6356 Aug, [place] [address] [place] [id number] [place] [address] 64797- 2661 Aug, Encounter for well woman exam with routine gynecological exam Z01.419 ; Screen for STD (sexually transmitted disease) Z11.3 ; Screening breast examination Z12.31 ; Other obesity due to excess calories E66.09 and Body mass index (BMI) of 33.0-33.9 in adult Z68.33 [place] [id number] [place] [address] 22249- 9061 July, Type 2 diabetes mellitus with hyperglycemia E11.65 and Iron deficiency anemia due to chronic blood loss D50.0 [place] [address] [place] [id number] [place] [address] 69776- 6362 16 Jun, 2017 Acute left-sided back pain with sciatica M54.42 ; Type 2 diabetes mellitus without complications E11.9 and 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 of 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 Z79.4 [facility] WALK IN [facility] [id number] [place] [address] 69619 -5546 Jun, Dysuria R30.0 and Lumbar back pain M54.5 [facility] [id number] [place] [address] 72718 -2798 Feb, Acute seasonal allergic rhinitis, unspecified trigger J30.2 [facility] [id number] [place] [address] 67382- 5110 Feb, Acute posthemorrhagic anemia D62 [facility] [address] [address]- 0027 05 Feb, 2017 Acute posthemorrhagic anemia D62 [place] [address] [address]2534- 8391 Feb, Type 2 diabetes mellitus without complication E11.9 and Dry skin L85.3 [place] [address] [address]137- 5678 Dec, [facility] IN [facility] [address] 63606 [address]7770 Nov, Weakness R53.1 and GERD (gastroesophageal reflux disease) K21.9 [place] [address] 19611- 8121 Nov, [place] [address] [place] [id number] [place] [address] 36850- 2642 Sep, Type 2 diabetes mellitus without complications E11.9 [facility] [address] 40372 -0353 July, Dysuria R30.0 and Acute cystitis with hematuria N30.01 [facility] [id number] [place] [address] 12673 -8018 Jun, Seasonal allergic rhinitis, unspecified allergic rhinitis trigger J30.2 [place] [address] [place] [id number] [place] [address] 73015- 7043 Jun, Hiatal hernia K44.9 and Ulcer of esophagus without bleeding K22.10 [place] [address] [place] [id number] [place] [address] 16136- 4298 07 Jun, 2016 Gastroesophageal reflux disease with esophagitis K21.0 [facility] [address] [id number] Jun, 2016 [facility] [address] 93484- 2502 May, Type 2 diabetes mellitus with hyperglycemia E11.65 and 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 of insulin Z79.4 [facility] [address] 65195- 9558 May, Other chronic pain G89.29 and Pain in left hip M25.552 [place] [address] 45751- 5338 13 Apr, 2016 Nausea R11.0 [place] [address] 93239- 0198 09 Apr, 2016 SOB (shortness of breath) R06.02 ; Coughing R05 and Type 2 diabetes mellitus without complication E11.9 [facility] [address] 45799 -7523 Apr, Bronchitis J40 [facility] [address] [place] [id number] [place] [address] 29571- 9265 Mar, Hiatal hernia K44.9 and Bronchitis J40 [facility] [address] [place] [id number] [place] [address] 95691- 9218 Mar, [facility] [address] [place] [id number] [place] [address] 74863- 6632 Mar, [facility] [address] 55604- 0660 Jan, [facility] [address] [place] [address] [id number] [place] [address] 50751- 3427 Dec, [facility] [address] 66802- 6317 Dec, Esophageal spasm K22.4 [place] [address] [place] [id number] [place] [address] 46623- 0122 Dec, [facility] WALK IN [place] [address] [place] [address] [id number] [place] [address] 64415 -4333 Dec, Right upper quadrant pain R10.11 and Abdominal pain, unspecified location R10.9 [facility] WALK [facility] [place] [address] [place] [id number] [place] [address] 70208 -4796 Dec, Right upper quadrant pain R10.11 [place] [address] [place] [id number] [place] [address] 57405- 0968 Nov, Type 2 diabetes mellitus without complication E11.9 and Right upper quadrant pain R10.11 [facility] IN [place] [address] [place] [address] [id number] [place] [address] 54796 -[address] Nov, Dysuria R30.0 and Abdominal pain, unspecified location R10.9 [place] [address] [place] [address] [id number] [place] [address] 57206- 8656 Aug, Chronic gastritis without bleeding, unspecified gastritis type K29.50 ; Dysuria R30.0 and Type 2 diabetes mellitus without complication E11.9 [place] [address] [place] [address] [id number] [place] [address] 24588- 9723 Aug, Gastroesophageal reflux disease, esophagitis presence not specified K21.9 and Acute cystitis with hematuria N30.01 [facility] IN [facility] [id number] [place] [address] 24321 -0591 07 Aug, 2015 Dysuria R30.0 [place] [address] [place] [id number] [place] [address] 86100- 3793 July, [place] [address] [place] [address] [id number] [place] [address] 60421- 2486 Jun, [place] [address] [place] [id number] [place] [address] 94233- 8868 May, Diabetes type 2, controlled E11.9 and Allergic rhinitis J30.9 [facility] [address] [place] [id number] [place] [address] 41106- 8776 Apr, Type 2 diabetes mellitus without complication E11.9 and Cough R05 [facility] [address] [place] [address] [id number] [place] [address] 97576- 0398 Apr, Vertigo R42 and Non-intractable vomiting with nausea, vomiting of unspecified type R11.2 [facility] IN [facility] [address] [place] [address] [id number] [place] [address] 45348 -9088 Mar, Acute laryngopharyngitis J06.0 ; Acute diarrhea R19.7 and Acute bacterial sinusitis J01.90 [facility] [address] [place] [id number] [place] [address] 58638- 7228 Mar, Upper respiratory infection 465.9 [place] [address] [place] [id number] [place] [address] 78820- 3540 Dec, Diabetes E11.9 [facility] [address] [place] [id number] [place] [address] 84992- 6964 Nov, Upper respiratory infection 465.9 [facility] [address] [place] [id number] [place] [address] 68433- 2959 Sep, [facility] [address] [place] [id number] [place] [address] 82782- 2865 Sep, Diabetes 250.00 [facility] [address] [place] [id number] [place] [address] 93339- 5634 July, Diabetes mellitus without mention of complication, type II or unspecified type, uncontrolled 250.02 and Cervicalgia 723.1 [facility] [address] [place] [id number] [place] [address] 64262- 2806 July, [facility] [address] [place] [id number] [place] [address] 98964- 5945 Jun, [facility] [address] [place] [id number] [place] [address] 89072- 9869 Jun, [facility] [place] [facility] [address] [id number] [place] [address]- 3386 May, [facility] [place] [facility] [address] [id number] [place] [address]- 5347 May, [facility] [place] [facility] [address] [id number] [place] [address]- 0194 Apr, [facility] [place] [facility] [address] [id number] [place] [address]- 5022 Apr, [facility] [place] [facility] [address] [id number] [place] [address]- 5535 Apr, [facility] [place] [facility] [address] [id number] [place] [address]- 2559 Apr, [facility] [place] [facility] [address] [id number] [place] [address]- 2094 Mar, [facility] [place] [facility] [address] [id number] [place] [address]- 2424 Mar, [facility] [place] [facility] [address] [id number] [place] [address]- 8007 Feb, [facility] [place] [facility] [address] [id number] [place] [address]- 1596 Feb, [facility] [place] [facility] [address] [id number] [place] [address]- 0360 Jan, [facility] [place] [facility] [address] [id number] [place] [address]- 9611 Jan, [facility] [place] [facility] [address] [id number] [place] [address]72 Aug, [facility] [place] [facility] [address] [id number] [place] [address] Aug, [facility] [place] [facility] [address] [id number] [place] [address]- 4144 July, [facility] [place] [facility] [address] [id number], [place] [address] 1931 July, [facility] [address] [id number] [place] [address]- 0173 Nov, [facility] [place] [facility] [address] [id number] [place] [address] Nov, [facility] [place] [facility] [address] [id number] [place] [address]- 0130 Nov, [facility] [place] [facility] [address] [id number] [place] [address]- 4187 Sep, [facility] [place] [facility] [address] [id number] [place] [address]- 3026 Aug, [facility] [place] [facility] [address] [id number] [place] [address]- 3495 July, [facility] [address] [id number] [place] [address]- 1556 Jun, [facility] [place] [facility] [address] [id number] [place] [address]- 0638 Jun, [facility] [place] [facility] [address] [id number] [place] [address]- 5269 Jun, [facility] [place] [facility] [address] [id number] [place] [address]- 0686 Jun, [facility] [place] [facility] [address] [id number] [place] [address]- 9605 May, [facility] [place] [facility] [address] [id number] [place] [address]- 9848 May, [facility] [place] [facility] [address] [id number] [place] [address]- 3086 Jan, [facility] [place] [facility] [address] [id number] [place] [address]- 5259 Jan, [facility] [place] [facility] [address] [id number] [place] [address]- 5358 Dec, [facility] [place] [facility] [address] [id number] [place] [address]- 2676 Dec, [facility] [place] [facility] [address] [id number] [place] [address]- 7990 Dec, [facility] [place] [facility] [address] [id number] [place] [address]- 7276 Dec, [facility] [place] [facility] [address] [id number] [place] [address]- 5656 Dec, [facility] [place] [facility] [address] [id number] [place] [address]- 2056 Dec, [facility] [place] [facility] [address] [facility] [id number] [place] [address]- 5696 Dec, [facility] [place] [facility] [address] [facility] [id number] [place] [address]- 7266 Aug, [facility] [address] [id number] [id number] Apr, [facility] [address] [facility] [id number] [address]- 8487 Apr, [facility] [place] [facility] [address] [place] [id number] [place] [address]- 3316 Apr, [facility] [address] [facility] [id number], [place] [address]- 4246 Apr, [facility] [place] [facility] [address] [id number] [place] [address]- 3446 Apr, [facility] [place] [facility] [address] [facility] [id number], [place] [address]- 4663 Dec, [facility] [place] [facility] [address] [facility] [id number] [place] [address]- 9056 14 Dec, 2010 [facility] [place] [facility] [address] [facility] [id number], [place] [address]- 5966 Dec, [facility] [place] [facility] [address] [facility] [id number], [place] [address]- 6116 Dec, [facility] [address] [facility] [id number][place] [address]- 1328 19 Feb, 2010 [facility] [address] [place] [id number] [address]- 2997 16 Feb, 2010 [facility] [address] [facility] [id number], [place] [address]- 5708 Feb, [facility] [address] [id number], [place] [address]- 5241 Feb, [facility] [address] [facility] [id number], [place] [address]- 3683 14 Aug, 2009 [facility] [address] [facility] [id number][place] [address]- 2725 May, IMMUNIZATIONS No Known Immunizations SOCIAL HISTORY Never Assessed REASON FOR VISIT Order change PLAN OF CARE VITAL SIGNS MEDICATIONS Unknown Medications RESULTS Name Result Date Reference Range Sterotact Guide for Breast Bx 2017-09-23 PROCEDURES No Known procedures INSTRUCTIONS MEDICATIONS ADMINISTERED [...] UTI 11/27/15 Hospitalization History Upper abdominal pain, [facility] 06/08/16
--- OUTSIDE RECORDS SUMMARY | 2018-02-16 16:28 | XMS REPORT ---
Author Author MARIBETH RENEA Organization [facility] Address [address] [place] [address] Care Team Providers Care Print Decorator Name Role Phone STAHLRENEA Tao Unavailable PROBLEMS Type Condition ICD9-CM Code SEA48-JW Code Onset Dates Condition Status SNOMED Code Problem Gastroesophageal reflux disease with esophagitis K21.0 Active 675180197 Problem Type 2 diabetes mellitus without complications E11.9 Active 115684695 Problem Seasonal allergic rhinitis, unspecified allergic rhinitis trigger J30.2 Active 296784741 Problem Other obesity due to excess calories E66.09 Active 392714433 Problem Body mass index (BMI) of 33.0-33.9 in adult Z68.33 Active 527451870 Problem Acute seasonal allergic rhinitis, unspecified trigger J30.2 Active 682472252 Problem GERD (gastroesophageal reflux disease) K21.9 Active 149199745 Problem Iron deficiency anemia due to chronic blood loss D50.0 Active 746938051 Problem Acute left-sided back pain with sciatica M54.42 Active 898026188 Problem Abnormal mammogram of left breast R92.8 Active 413662368 Problem Type 2 diabetes mellitus with hyperglycemia E11.65 Active 781829598 Problem shelter current use of insulin Z79.4 Active 847897477 Problem Type 2 diabetes mellitus without complication E11.9 Active 26851094 Problem Other chronic pain G89.29 Active 28925978 Problem Esophageal spasm K22.4 Active 10281573 Problem Ulcer of esophagus without bleeding K22.10 Active 10995813 ALLERGIES No Information ENCOUNTERS Encounter Location Date Diagnosis [facility] [address], [place] [address] Oct, [facility] [address] [address] Oct, Type 2 diabetes mellitus with hyperglycemia E11.65 [facility] [address], [place] [address] Sep, Acute pain of left knee M25.562 [facility] [place] [address] [place] [address] [id number] [place] [address]003 -8625 Sep, Right anterior knee pain M25.561 [place] [address] [place] [address] [id number] [place] [address] 38806- 7161 Sep, Abnormal mammogram of left breast R92.8 [place] [address] [place] [address] [id number] [place] [address] 22051- 3386 Sep, Abnormal mammogram of left breast R92.8 [place] [address] [place] [id number] [place] [address] 20946- 8920 Aug, [place] [address] [place] [id number] [place] [address] 94283- 3951 Aug, Abnormal mammogram of left breast R92.8 [place] [address] [place] [id number] [place] [address] 43715- 5041 Aug, [place] [address] [place] [id number] [place] [address] 62380- 7815 Aug, Encounter for well woman exam with routine gynecological exam Z01.419 ; Screen for STD (sexually transmitted disease) Z11.3 ; Screening breast examination Z12.31 ; Other obesity due to excess calories E66.09 and Body mass index (BMI) of 33.0-33.9 in adult Z68.33 [place] [id number] [place] [address] 04313- 3638 July, Type 2 diabetes mellitus with hyperglycemia E11.65 and Iron deficiency anemia due to chronic blood loss D50.0 [place] [address] [place] [id number] [place] [address] 42266- 2794 16 Jun, 2017 Acute left-sided back pain with sciatica M54.42 ; Type 2 diabetes mellitus without complications E11.9 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 [facility] [id number] [place] [address] 15686 -1354 Jun, Dysuria R30.0 and Lumbar back pain M54.5 [facility] [address] [id number] [place] [address] 09013 -7070 Feb, Acute seasonal allergic rhinitis, unspecified trigger J30.2 [facility] [id number] [place] [address] 82062- 1216 Feb, Acute posthemorrhagic anemia D62 [facility] [address] 74237- 5345 05 Feb, 2017 Acute posthemorrhagic anemia D62 [place] [address] 52122- 9951 Feb, Type 2 diabetes mellitus without complication E11.9 and Dry skin L85.3 [place] [address] 46930- 9999 Dec, [facility] [address] 97396 -6049 Nov, Weakness R53.1 and GERD (gastroesophageal reflux disease) K21.9 [place] [address] 83604- 9326 Nov, [place] [address] [place] [id number] [place] [address] 83578- 2076 Sep, Type 2 diabetes mellitus without complications E11.9 [facility] [address] 69381 -6389 July, Dysuria R30.0 and Acute cystitis with hematuria N30.01 [facility] [address] [id number] [place] [address] 36594 -3029 Jun, Seasonal allergic rhinitis, unspecified allergic rhinitis trigger J30.2 [place] [address] [place] [address] [id number] [place] [address] 16285- 6836 Jun, Hiatal hernia K44.9 and Ulcer of esophagus without bleeding K22.10 [place] [address] [place] [id number] [place] [address] 37003- 4794 07 Jun, 2016 Gastroesophageal reflux disease with esophagitis K21.0 [facility] [address] [id number] Jun, 2016 [facility] [address] 76652- 3792 May, Type 2 diabetes mellitus with hyperglycemia E11.65 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 [facility] [address] 89574- 5727 May, Other chronic pain G89.29 and Pain in left hip M25.552 [place] [address] 54065- 4940 13 Apr, 2016 Nausea R11.0 [place] [address] 34650- 6598 09 Apr, 2016 SOB (shortness of breath) R06.02 ; Coughing R05 and Type 2 diabetes mellitus without complication E11.9 [facility] [address] 72016 -6383 Apr, Bronchitis J40 [facility] [address] [place] [address] [id number] [place] [address] 57550- 9004 Mar, Hiatal hernia K44.9 and Bronchitis J40 [facility] [address] [address] [id number] [place] [address] 58986- 4299 Mar, [facility] [address] [address] [id number] [place] [address] 49844- 8914 Mar, [facility] [address] 46078- 1078 Jan, [facility] [address] [id number] [place] [address] 46998- 0327 Dec, [facility] [address] 92409- 0378 Dec, Esophageal spasm K22.4 [place] [address] [place] [address] [id number] [place] [address] 31272- 4966 Dec, [facility] [place] [address] [id number] [place] [address] 40892 -1421 Dec, Right upper quadrant pain R10.11 and Abdominal pain, unspecified location R10.9 [facility] [place] [address] [id number] [place] [address] 49372 -5495 Dec, Right upper quadrant pain R10.11 [place] [address] [place] [address] [id number] [place] [address] 59671- 3774 Nov, Type 2 diabetes mellitus without complication E11.9 and Right upper quadrant pain R10.11 [facility] [place] [address] [id number] [place] [address] 66614 -6049 Nov, Dysuria R30.0 and Abdominal pain, unspecified location R10.9 [place] [address] [place] [address] [id number] [place] [address] 07215- 1966 Aug, Chronic gastritis without bleeding, unspecified gastritis type K29.50 ; Dysuria R30.0 and Type 2 diabetes mellitus without complication E11.9 [place] [address] [place] [address] [id number] [place] [address] 13262- 1343 Aug, Gastroesophageal reflux disease, esophagitis presence not specified K21.9 and Acute cystitis with hematuria N30.01 [facility] [address] [id number] [place] [address] 66829 -2559 07 Aug, 2015 Dysuria R30.0 [place] [address] [place] [id number] [place] [address] 45127- 5977 July, [place] [address] [place] [id number] [place] [address] 16455- 3606 Jun, [place] [address] [place] [address] [id number] [place] [address] 48672- 5125 May, Diabetes type 2, controlled E11.9 and Allergic rhinitis J30.9 [facility] [address] [id number] [place] [address] 00202- 2846 Apr, Type 2 diabetes mellitus without complication E11.9 and Cough R05 [facility] [address] [id number] [place] [address] 09827- 0697 Apr, Vertigo R42 and Non-intractable vomiting with nausea, vomiting of unspecified type R11.2 [facility] [address] [id number] [place] [address] 40777 -8699 Mar, Acute laryngopharyngitis J06.0 ; Acute diarrhea R19.7 and Acute bacterial sinusitis J01.90 [facility] [address] [place] [address] [id number] [place] [address] 26667- 0983 Mar, Upper respiratory infection 465.9 [place] [address] [place] [id number] [place] [address] 63125- 1123 Dec, Diabetes E11.9 [facility] [address] [place] [address] [id number] [place] [address] 16587- 1590 Nov, Upper respiratory infection 465.9 [facility] [address] [place] [id number] [place] [address] 23993- 7685 Sep, [facility] [address] [place] [address] [id number] [place] [address] 33998- 3132 Sep, Diabetes 250.00 [facility] [address] [place] [address] [id number] [place] [address] 84606- 1934 July, Diabetes mellitus without mention of complication, type II or unspecified type, uncontrolled 250.02 and Cervicalgia 723.1 [facility] [address] [place] [id number] [place] [address] 80828- 2242 July, [facility] [address] [place] [address] [id number] [place] [address] 45540- 6959 Jun, [facility] [address] [place] [address] [id number] [place] [address] 80145- 8191 Jun, [facility] [place] [facility] [address] [id number] [place] [address]- 2492 May, [facility] [place] [facility] [address] [id number] [place] [address]- 8255 May, [facility] [place] [facility] [address] [id number] [place] [address]- 6726 Apr, [facility] [place] [facility] [address] [id number] [place] [address]- 1648 Apr, [facility] [place] [facility] [address] [id number] [place] [address]- 9613 Apr, [facility] [place] [facility] [address] [id number] [place] [address]- 6178 Apr, [facility] [place] [facility] [address] [id number] [place] [address]- 1360 Mar, [facility] [place] [facility] [address] [id number] [place] [address]- 5078 Mar, [facility] [place] [facility] [address] [id number] [place] [address]- 9329 Feb, [facility] [place] [facility] [address] [id number] [place] [address]- 5770 Feb, [facility] [place] [facility] [address] [id number] [place] [address]- 5445 Jan, [facility] [place] [facility] [address] [id number] [place] [address]- 7808 Jan, [facility] [place] [facility] [address] [id number] [place] 8843 Aug, [facility] [place] [facility] [address] [id number] [place] [address]65 Aug, [facility] [place] [facility] [address] [id number] [place] [address]- 9198 July, [facility] [place] [facility] [address] [id number], [place] [address]- 7713 July, [facility] [address] [id number] [place] [address]- 3112 Nov, [facility] [place] [facility] [address] [id number] [place] 0946 Nov, [facility] [place] [facility] [address] [id number] [place] [address]- 7589 Nov, [facility] [place] [facility] [address] [id number] [place] [address]- 2228 Sep, [facility] [place] [facility] [address] [id number] [place] [address]- 3309 Aug, [facility] [place] [facility] [address] [id number] [place] [address]- 2107 July, [facility] [address] [id number] [place] [address]- 3286 Jun, [facility] [place] [facility] [address] [id number] [place] [address]- 5986 Jun, [facility] [place] [facility] [address] [id number] [place] [address]- 6048 Jun, [facility] [place] [facility] [address] [id number] [place] [address]- 7036 Jun, [facility] [place] [facility] [address] [id number] [place] [address]- 9238 May, [facility] [place] [facility] [address] [id number] [place] [address]- 3967 May, [facility] [place] [facility] [address] [id number] [place] [address]- 4973 Jan, [facility] [place] [facility] [address] [id number] [place] [address]- 5896 Jan, [facility] [place] [facility] [address] [id number] [place] [address]- 4025 Dec, [facility] [place] [facility] [address] [id number] [place] [address]- 8926 Dec, [facility] [place] [facility] [address] [id number] [place] [address]- 5241 Dec, [facility] [place] [facility] [address] [id number] [place] [address]- 4056 Dec, [facility] [place] [facility] [address] [id number] [place] [address]- 3246 Dec, [facility] [place] [facility] [address] [id number] [place] [address]- 6466 Dec, [facility] [place] [facility] [address] [facility] [id number] [place] [address]- 9246 Dec, [facility] [place] [facility] [address] [facility] [id number] [place] [address]- 5086 Aug, [facility] [address] [id number] [id number] Apr, [facility] [address] [facility] [id number], [place] [address]- 3949 Apr, [facility] [place] [facility] [address] [place] [id number] [place] [address]- 1687 Apr, [facility] [address] [facility] [id number], [place] [address]- 3196 Apr, [facility] [place] [facility] [address] [id number] [place] [address]- 3326 Apr, [facility] [place] [facility] [address] [facility] [id number], [place] [address]- 6766 Dec, [facility] [place] [facility] [address] [facility] [id number] [place] [address]- 2616 14 Dec, 2010 [facility] [place] [facility] [address] [facility] [id number], [place] [address]- 2176 Dec, [facility] [place] [facility] [address] [facility] [id number], [place] [address]- 7477 Dec, [facility] [address] [facility] [id number], [place] [address]- 8468 Feb, [facility] [address] [place] [id number] [address]- 5666 Feb, [facility] [address] [facility] [id number], [place] [address]- 3289 Feb, [facility] [address] [id number], [place] [address] 2545 Feb, [facility] [address] [facility] [id number], [place] [address]- 8524 Aug, [facility] [address] [facility] [id number], [place] [address]- 6401 May, IMMUNIZATIONS No Known Immunizations SOCIAL HISTORY Never Assessed REASON FOR VISIT FYI only PLAN OF CARE VITAL SIGNS MEDICATIONS Unknown [...] UTI 11/27/15 Hospitalization History Upper abdominal pain, [facility] 06/08/16
--- OUTSIDE RECORDS SUMMARY | 2018-02-16 16:29 | XMS REPORT ---
Author Author MARIBETH RENEA Organization [facility] Address [address] [place] [address] Care Team Providers Care Acid Remover Name Role Phone STAHLRENEA Tao Unavailable PROBLEMS Type Condition ICD9-CM Code HEJ74-JR Code Onset Dates Condition Status SNOMED Code Problem Gastroesophageal reflux disease with esophagitis K21.0 Active 512865527 Problem Type 2 diabetes mellitus without complications E11.9 Active 869065911 Problem Seasonal allergic rhinitis, unspecified allergic rhinitis trigger J30.2 Active 777765263 Problem Other obesity due to excess calories E66.09 Active 660970862 Problem Body mass index (BMI) of 33.0-33.9 in adult Z68.33 Active 448823459 Problem Acute seasonal allergic rhinitis, unspecified trigger J30.2 Active 634118921 Problem GERD (gastroesophageal reflux disease) K21.9 Active 872396512 Problem Iron deficiency anemia due to chronic blood loss D50.0 Active 206667850 Problem Acute left-sided back pain with sciatica M54.42 Active 923963259 Problem Abnormal mammogram of left breast R92.8 Active 608830348 Problem Type 2 diabetes mellitus with hyperglycemia E11.65 Active 430337824 Problem 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 Active 652294396 Problem Type 2 diabetes mellitus without complication E11.9 Active 71983233 Problem Other chronic pain G89.29 Active 54268814 Problem Esophageal spasm K22.4 Active 00768826 Problem Ulcer of esophagus without bleeding K22.10 Active 46351138 ALLERGIES No Information ENCOUNTERS Encounter Location Date Diagnosis [facility] [address] [address] Oct, [facility] [address], [place] [address] Oct, Type 2 diabetes mellitus with hyperglycemia E11.65 [facility] [address] [address] Sep, Acute pain of left knee M25.562 [facility] [place] [address] [place] [id number] [place] [address]2620 Sep, Right anterior knee pain M25.561 [place] [address] [id number] [place] [address] 20016- 9664 Sep, Abnormal mammogram of left breast R92.8 [place] [address] [id number] [place] [address]13- 3284 Sep, Abnormal mammogram of left breast R92.8 [place] [address] [id number] [place] [address] 66189- 4570 Aug, [place] [address] [place] [address] [id number] [place] [address] 84965- 2382 Aug, Abnormal mammogram of left breast R92.8 [place] [address] [place] [id number] [place] [address] 00252- 7987 Aug, [place] [address] [id number] [place] [address] 72054- 8439 Aug, Encounter for well woman exam with routine gynecological exam Z01.419 ; Screen for STD (sexually transmitted disease) Z11.3 ; Screening breast examination Z12.31 ; Other obesity due to excess calories E66.09 and Body mass index (BMI) of 33.0-33.9 in adult Z68.33 [place] [id number] [place] [address] 78149- 8328 July, Type 2 diabetes mellitus with hyperglycemia E11.65 and Iron deficiency anemia due to chronic blood loss D50.0 [place] [address] [id number] [place] [address] 20385- 8805 16 Jun, 2017 Acute left-sided back pain with sciatica M54.42 ; Type 2 diabetes mellitus without complications E11.9 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 [facility] [id number] [place] [address]645 -6990 Jun, Dysuria R30.0 and Lumbar back pain M54.5 [facility] [id number] [place] [address]182 -2083 Feb, Acute seasonal allergic rhinitis, unspecified trigger J30.2 [facility] [id number] [place] [address] 42409- 7190 Feb, Acute posthemorrhagic anemia D62 [facility] [address] [address] 05 Feb, 2017 Acute posthemorrhagic anemia D62 [place] [address] [address]- 9245 Feb, Type 2 diabetes mellitus without complication E11.9 and Dry skin L85.3 [place] [address] [address]- 2117 Dec, [facility] [address] [address] Nov, Weakness R53.1 and GERD (gastroesophageal reflux disease) K21.9 [place] [address] [address]- 6906 Nov, [place] [address] [id number] [place] [address] 25414- 3047 Sep, Type 2 diabetes mellitus without complications E11.9 [facility] [address] 3[address] July, Dysuria R30.0 and Acute cystitis with hematuria N30.01 [facility] [id number] [place] [address]97 -0422 Jun, Seasonal allergic rhinitis, unspecified allergic rhinitis trigger J30.2 [place] [address] [place] [id number] [place] [address] 08394- 4170 Jun, Hiatal hernia K44.9 and Ulcer of esophagus without bleeding K22.10 [place] [address] [place] [id number] [place] [address] 09801- 4452 07 Jun, 2016 Gastroesophageal reflux disease with esophagitis K21.0 [facility] [place] [address] [id number] Jun, 2016 [facility] [address] [address] May, Type 2 diabetes mellitus with hyperglycemia E11.65 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 [facility] [address] [address]- 5269 May, Other chronic pain G89.29 and Pain in left hip M25.552 [place] [address] [address]- 3445 13 Apr, 2016 Nausea R11.0 [place] [address] [address]9077- 2271 09 Apr, 2016 SOB (shortness of breath) R06.02 ; Coughing R05 and Type 2 diabetes mellitus without complication E11.9 [facility] [address] 75092 [address] Apr, Bronchitis J40 [facility] [address] [id number] [place] [address] 41547- 2490 Mar, Hiatal hernia K44.9 and Bronchitis J40 [facility] [address] [address] [id number] [place] [address] 71753- 3676 Mar, [facility] [address] [id number] [place] [address] 64361- 1541 Mar, [facility] [address] [address]- [address] Jan, [facility] [id number] [place] [address] 93195- 1804 Dec, [facility] [address] [address]- [address]65 Dec, Esophageal spasm K22.4 [place] [address] [id number] [place] [address] 00830- 8239 Dec, [facility] [place] [address] [id number] [place] [address]54 -1757 Dec, Right upper quadrant pain R10.11 and Abdominal pain, unspecified location R10.9 [facility] [place] [address] [id number] [place] [address] 29973 -9632 Dec, Right upper quadrant pain R10.11 [place] [address] [id number] [place] [address] 18101- 6660 Nov, Type 2 diabetes mellitus without complication E11.9 and Right upper quadrant pain R10.11 [facility] [place] [address] [id number] [place] [address] 54065 -8947 Nov, Dysuria R30.0 and Abdominal pain, unspecified location R10.9 [place] [address] [id number] [place] [address] 60546- 8471 Aug, Chronic gastritis without bleeding, unspecified gastritis type K29.50 ; Dysuria R30.0 and Type 2 diabetes mellitus without complication E11.9 [place] [address] [id number] [place] [address] 42587- 1004 Aug, Gastroesophageal reflux disease, esophagitis presence not specified K21.9 and Acute cystitis with hematuria N30.01 [facility] IN [facility] [id number] [place] [address] 61007 -0930 07 Aug, 2015 Dysuria R30.0 [place] [address] [place] [address] [id number] [place] [address] 55360- 8296 July, [place] [address] [address] [id number] [place] [address] 15916- 6366 Jun, [place] [address] [place] [id number] [place] [address] 72396- 7372 May, Diabetes type 2, controlled E11.9 and Allergic rhinitis J30.9 [facility] [id number] [place] [address] 45499- 2420 Apr, Type 2 diabetes mellitus without complication E11.9 and Cough R05 [facility] [address] [id number] [place] [address] 89576- 7919 Apr, Vertigo R42 and Non-intractable vomiting with nausea, vomiting of unspecified type R11.2 [facility] IN [facility] [id number] [place] [address] 43049 -5009 Mar, Acute laryngopharyngitis J06.0 ; Acute diarrhea R19.7 and Acute bacterial sinusitis J01.90 [facility] [address] [place] [id number] [place] [address] 65468- 7275 Mar, Upper respiratory infection 465.9 [place] [address] [id number] [place] [address] 25701- 2840 Dec, Diabetes E11.9 [facility] [address] [place] [id number] [place] [address] 66617- 1620 Nov, Upper respiratory infection 465.9 [facility] [address] [place] [id number] [place] [address] 26025- 0010 Sep, [facility] [address] [place] [id number] [place] [address] 47825- 5128 Sep, Diabetes 250.00 [facility] [address] [place] [id number] [place] [address] 30712- 2427 July, Diabetes mellitus without mention of complication, type II or unspecified type, uncontrolled 250.02 and Cervicalgia 723.1 [facility] [address] [place] [id number] [place] [address] 73298- 2948 July, [facility] [address] [place] [id number] [place] [address] 19048- 4944 Jun, [facility] [address] [place] [id number] [place] [address] 24015- 4794 Jun, [facility] [place] [facility] [address] [id number] [place] [address]- 3190 May, [facility] [place] [facility] [address] [id number] [place] [address]- 8127 May, [facility] [place] [facility] [address] [id number] [place] [address]- 7410 Apr, [facility] [place] [facility] [address] [id number] [place] [address]- 5961 Apr, [facility] [place] [facility] [address] [id number] [place] [address]- 9730 Apr, [facility] [place] [facility] [address] [id number] [place] [address]- 8746 Apr, [facility] [place] [facility] [address] [id number] [place] [address]- 9651 Mar, [facility] [place] [facility] [address] [id number] [place] [address]- 9559 Mar, [facility] [place] [facility] [address] [id number] [place] [address]- 1241 Feb, [facility] [place] [facility] [address] [id number] [place] [address]- 9194 Feb, [facility] [place] [facility] [address] [id number] [place] [address]- 7379 Jan, [facility] [place] [facility] [address] [id number] [place] [address]- 2056 Jan, [facility] [place] [facility] [address] [id number] [place] 2270 Aug, [facility] [place] [facility] [address] [id number] [place] 8250 Aug, [facility] [place] [facility] [address] [id number] [place] [address]- 2707 July, [facility] [place] [facility] [address] [id number] [address]- 3191 July, [facility] [address] [id number] [place] [address]- 0544 Nov, [facility] [place] [facility] [address] [id number] [place] [address]148 Nov, [facility] [place] [facility] [address] [id number] [place] [address]- 1916 Nov, [facility] [place] [facility] [address] [id number] [place] [address]- 4720 Sep, [facility] [place] [facility] [address] [id number] [place] [address]- 6108 Aug, [facility] [place] [facility] [address] [id number] [place] [address]- 8328 July, [facility] [address] [id number] [place] [address]- 8313 Jun, [facility] [place] [facility] [address] [id number] [place] [address]- 6924 Jun, [facility] [place] [facility] [address] [id number] [place] [address]- 5458 Jun, [facility] [place] [facility] [address] [id number] [place] [address]- 7875 Jun, [facility] [place] [facility] [address] [id number] [place] [address]- 2818 May, [facility] [place] [facility] [address] [id number] [place] [address]- 0209 May, [facility] [place] [facility] [address] [id number] [place] [address]- 7431 Jan, [facility] [place] [facility] [address] [id number] [place] [address]- 4329 Jan, [facility] [place] [facility] [address] [id number] [place] [address]- 8775 Dec, [facility] [place] [facility] [address] [id number] [place] [address]- 2036 Dec, [facility] [place] [facility] [address] [id number] [place] [address]- 1727 Dec, [facility] [place] [facility] [address] [id number] [place] [address]- 1666 Dec, [facility] [place] [facility] [address] [id number] [place] [address]- 1276 Dec, [facility] [place] [facility] [address] [id number] [place] [address]- 2966 Dec, [facility] [place] [facility] [address] [facility] [id number] [place] [address]- 0156 Dec, [facility] [place] [facility] [address] [facility] [id number] [place] [address]- 4786 Aug, [facility] [address] [id number] [id number] Apr, [facility] [address] [facility] [id number] [address]- 0829 Apr, [facility] [place] [facility] [address] [place] [id number] [place] [address]- 1665 Apr, [facility] [address] [facility] [id number], [place] [address]- 6026 Apr, [facility] [place] [facility] [address] [id number] [place] [address]- 3886 Apr, [facility] [place] [facility] [address] [facility] [id number][place] [address]- 5254 Dec, [facility] [place] [facility] [address] [facility] [id number] [place] [address]- 2896 14 Dec, 2010 [facility] [place] [facility] [address] [facility] [id number] [address]- 6106 Dec, [facility] [place] [facility] [address] [facility] [id number], [place] [address]- 9801 Dec, [facility] [address] [facility] [id number] [address]- 6584 Feb, [facility] [address] [facility] [id number], [place] [address]- 6656 Feb, [facility] [address] [facility] [id number], [place] [address]- 4512 Feb, [facility] [address] [facility] [id number][place] [address]- 3167 Feb, [facility] [address] [facility] [id number][place] [address]- 7600 Aug, [facility] [address] [facility] [id number], [place] [address]- 3404 May, IMMUNIZATIONS No Known Immunizations SOCIAL HISTORY Never Assessed REASON FOR VISIT mammo order PLAN OF CARE VITAL SIGNS MEDICATIONS Unknown Medications RESULTS Name Result Date Reference Range Mammogram Dx, Left 2017-09-06 PROCEDURES No Known procedures INSTRUCTIONS MEDICATIONS ADMINISTERED [...] UTI 11/27/15 Hospitalization History Upper abdominal pain, [facility] 06/08/16
--- OUTSIDE RECORDS SUMMARY | 2018-02-16 16:29 | XMS REPORT ---
Author Author MARIBETH RENEA Organization [facility] Address [address] [place] [address] Care Team Providers Care Fabrication Supervisor Name Role Phone STAHLRENEA Tao Unavailable PROBLEMS Type Condition ICD9-CM Code YAW87-JQ Code Onset Dates Condition Status SNOMED Code Problem Gastroesophageal reflux disease with esophagitis K21.0 Active 690813651 Problem Type 2 diabetes mellitus without complications E11.9 Active 321164740 Problem Seasonal allergic rhinitis, unspecified allergic rhinitis trigger J30.2 Active 564026471 Problem Other obesity due to excess calories E66.09 Active 610086584 Problem Body mass index (BMI) of 33.0-33.9 in adult Z68.33 Active 644207880 Problem Acute seasonal allergic rhinitis, unspecified trigger J30.2 Active 091269677 Problem GERD (gastroesophageal reflux disease) K21.9 Active 717499794 Problem Iron deficiency anemia due to chronic blood loss D50.0 Active 870524198 Problem Acute left-sided back pain with sciatica M54.42 Active 402034202 Problem Abnormal mammogram of left breast R92.8 Active 480426020 Problem Type 2 diabetes mellitus with hyperglycemia E11.65 Active 009591169 Problem halfway current use of insulin Z79.4 Active 757814171 Problem Type 2 diabetes mellitus without complication E11.9 Active 52627654 Problem Other chronic pain G89.29 Active 75065853 Problem Esophageal spasm K22.4 Active 65411752 Problem Ulcer of esophagus without bleeding K22.10 Active 28524850 ALLERGIES No Information ENCOUNTERS Encounter Location Date Diagnosis [facility] [address], [place] [address] Oct, [facility] [address], [place] [address] Oct, Type 2 diabetes mellitus with hyperglycemia E11.65 [facility] [address], [place] [address] Sep, Acute pain of left knee M25.562 [facility] [place] [address] [place] [id number] [place] [address]356 -5099 Sep, Right anterior knee pain M25.561 [place] [id number] [place] [address] 37010- 9477 Sep, Abnormal mammogram of left breast R92.8 [place] [id number] [place] [address] 01386- 2919 Sep, Abnormal mammogram of left breast R92.8 [place] [id number] [place] [address] 05695- 3452 Aug, [place] [id number] [place] [address] 34320- 1731 Aug, Abnormal mammogram of left breast R92.8 [place] [id number] [place] [address] 92399- 2365 Aug, [place] [address] [id number] [place] [address] 92978- 9593 Aug, Encounter for well woman exam with routine gynecological exam Z01.419 ; Screen for STD (sexually transmitted disease) Z11.3 ; Screening breast examination Z12.31 ; Other obesity due to excess calories E66.09 and Body mass index (BMI) of 33.0-33.9 in adult Z68.33 [place] [id number] [place] [address] 26770- 1408 July, Type 2 diabetes mellitus with hyperglycemia E11.65 and Iron deficiency anemia due to chronic blood loss D50.0 [place] [id number] [place] [address] 10464- 3553 16 Jun, 2017 Acute left-sided back pain with sciatica M54.42 ; Type 2 diabetes mellitus without complications E11.9 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 [facility] [id number] [place] [address] 79652 -9831 Jun, Dysuria R30.0 and Lumbar back pain M54.5 [facility] [id number] [place] [address] 26013 -5655 Feb, Acute seasonal allergic rhinitis, unspecified trigger J30.2 [facility] [id number] [place] [address] 63475- 1548 Feb, Acute posthemorrhagic anemia D62 [facility] [address] [address]- 6865 05 Feb, 2017 Acute posthemorrhagic anemia D62 [place] [address] 08388- 1008 Feb, Type 2 diabetes mellitus without complication E11.9 and Dry skin L85.3 [place] [address] [address]- [address] Dec, [facility] [address] 02[address] -1614 Nov, Weakness R53.1 and GERD (gastroesophageal reflux disease) K21.9 [place] [address] 29892- 7210 Nov, [place] [address] [id number] [place] [address] 25510- 4335 Sep, Type 2 diabetes mellitus without complications E11.9 [facility] [address] 39421 -3566 July, Dysuria R30.0 and Acute cystitis with hematuria N30.01 [facility] [id number] [place] [address] 11898 -4719 Jun, Seasonal allergic rhinitis, unspecified allergic rhinitis trigger J30.2 [place] [id number] [place] [address] 89301- 7432 Jun, Hiatal hernia K44.9 and Ulcer of esophagus without bleeding K22.10 [place] [address] [id number] [place] [address] 36792- 6886 07 Jun, 2016 Gastroesophageal reflux disease with esophagitis K21.0 [facility] [address] [id number] Jun, 2016 [facility] [address] 96390- 3299 May, Type 2 diabetes mellitus with hyperglycemia E11.65 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 [facility] [address] 61909- 5103 May, Other chronic pain G89.29 and Pain in left hip M25.552 [place] [address] 57327- 2347 13 Apr, 2016 Nausea R11.0 [place] [address] 34716- 0775 09 Apr, 2016 SOB (shortness of breath) R06.02 ; Coughing R05 and Type 2 diabetes mellitus without complication E11.9 [facility] [address] 35764 -6272 Apr, Bronchitis J40 [facility] [id number] [place] [address] 13450- 2549 Mar, Hiatal hernia K44.9 and Bronchitis J40 [facility] [id number] [place] [address] 04799- 0589 Mar, [facility] [id number] [place] [address] 75372- 6349 Mar, [facility] [address] 8[address]- 9544 Jan, [facility] [id number] [place] [address] 38063- 3993 Dec, [facility] [address] 12059- 5816 Dec, Esophageal spasm K22.4 [place] [id number] [place] [address] 24427- 0323 Dec, [facility] [place] [id number] [place] [address] 15994 -0944 Dec, Right upper quadrant pain R10.11 and Abdominal pain, unspecified location R10.9 [facility] [place] [id number] [place] [address] 19540 -3125 Dec, Right upper quadrant pain R10.11 [place] [id number] [place] [address] 27643- 5756 Nov, Type 2 diabetes mellitus without complication E11.9 and Right upper quadrant pain R10.11 [facility] [place] [id number] [place] [address] 84516 -6780 Nov, Dysuria R30.0 and Abdominal pain, unspecified location R10.9 [place] [id number] [place] [address] 32276- 3898 Aug, Chronic gastritis without bleeding, unspecified gastritis type K29.50 ; Dysuria R30.0 and Type 2 diabetes mellitus without complication E11.9 [place] [id number] [place] [address] 67203- 2321 Aug, Gastroesophageal reflux disease, esophagitis presence not specified K21.9 and Acute cystitis with hematuria N30.01 [facility] [id number] [place] [address] 54161 -6952 07 Aug, 2015 Dysuria R30.0 [place] [id number] [place] [address] 49088- 9379 July, [place] [id number] [place] [address] 58829- 5868 Jun, [place] [id number] [place] [address] 98860- 7348 May, Diabetes type 2, controlled E11.9 and Allergic rhinitis J30.9 [facility] [id number] [place] [address] 92933- 0623 Apr, Type 2 diabetes mellitus without complication E11.9 and Cough R05 [facility] [id number] [place] [address] 15179- 9608 Apr, Vertigo R42 and Non-intractable vomiting with nausea, vomiting of unspecified type R11.2 [facility] [id number] [place] [address] 56873 -8526 Mar, Acute laryngopharyngitis J06.0 ; Acute diarrhea R19.7 and Acute bacterial sinusitis J01.90 [facility] [address] [address] [id number] [place] [address] 13207- 7062 Mar, Upper respiratory infection 465.9 [place] [address] [id number] [place] [address] 93670- 2552 Dec, Diabetes E11.9 [facility] [address] [id number] [place] [address] 59336- 0684 Nov, Upper respiratory infection 465.9 [facility] [address] [address] [id number] [place] [address] 12727- 7705 Sep, [facility] [address] [id number] [place] [address] 07994- 8380 Sep, Diabetes 250.00 [facility] [address] [address] [id number] [place] [address] 38886- 6989 July, Diabetes mellitus without mention of complication, type II or unspecified type, uncontrolled 250.02 and Cervicalgia 723.1 [facility] [address] [id number] [place] [address] 78734- 2188 July, [facility] [address] [id number] [place] [address] 30373- 6042 Jun, [facility] [address] [address] [id number] [place] [address] 69161- 0883 Jun, [facility] [place] [facility] [address] [id number] [place] [address]- 8279 May, [facility] [place] [facility] [address] [id number] [place] [address]- 7624 May, [facility] [place] [facility] [address] [id number] [place] [address]- 5284 Apr, [facility] [place] [facility] [address] [id number] [place] [address]- 1620 Apr, [facility] [place] [facility] [address] [id number] [place] [address]- 4177 Apr, [facility] [place] [facility] [address] [id number] [place] [address]- 8669 Apr, [facility] [place] [facility] [address] [id number] [place] [address]- 1050 Mar, [facility] [place] [facility] [address] [id number] [place] [address]- 7529 Mar, [facility] [place] [facility] [address] [id number] [place] [address]- 9341 Feb, [facility] [place] [facility] [address] [id number] [place] [address]- 3038 Feb, [facility] [place] [facility] [address] [id number] [place] [address]- 0610 Jan, [facility] [place] [facility] [address] [id number] [place] [address]- 2511 Jan, [facility] [place] [facility] [address] [id number] [place] [address] Aug, [facility] [place] [facility] [address] [id number] [place] [address] Aug, [facility] [place] [facility] [address] [id number] [place] [address]- 0041 July, [facility] [place] [facility] [address] [id number], [place] [address]- 4724 July, [facility] [address] [id number] [place] [address]- 7432 Nov, [facility] [place] [facility] [address] [id number] [place]95 Nov, [facility] [place] [facility] [address] [id number] [place] [address]- 7088 Nov, [facility] [place] [facility] [address] [id number] [place] [address]- 6779 Sep, [facility] [place] [facility] [address] [id number] [place] [address]- 0849 Aug, [facility] [place] [facility] [address] [id number] [place] [address]- 1944 July, [facility] [address] [id number] [place] [address]- 9440 Jun, [facility] [place] [facility] [address] [id number] [place] [address]- 3177 Jun, [facility] [place] [facility] [address] [id number] [place] [address]- 0136 Jun, [facility] [place] [facility] [address] [id number] [place] [address]- 9449 Jun, [facility] [place] [facility] [address] [id number] [place] [address]- 1970 May, [facility] [place] [facility] [address] [id number] [place] [address]- 1798 May, [facility] [place] [facility] [address] [id number] [place] [address]- 0125 Jan, [facility] [place] [facility] [address] [id number] [place] [address]- 1189 Jan, [facility] [place] [facility] [address] [id number] [place] [address]- 0669 Dec, [facility] [place] [facility] [address] [id number] [place] [address]- 2826 Dec, [facility] [place] [facility] [address] [id number] [place] [address]- 7673 Dec, [facility] [place] [facility] [address] [id number] [place] [address]- 4066 Dec, [facility] [place] [facility] [address] [id number] [place] [address]- 3266 Dec, [facility] [place] [facility] [address] [id number] [place] [address]- 7776 Dec, [facility] [place] [facility] [address] [facility] [id number] [place] [address]- 6886 Dec, [facility] [place] [facility] [address] [facility] [id number] [place] [address]- 0786 Aug, [facility] [address] [id number] [id number] Apr, [facility] [address] [facility] [id number], [place] [address]- 0692 Apr, [facility] [place] [facility] [address] [place] [address] [id number] [place] [address]- 2669 Apr, [facility] [address] [facility] [id number], [place] [address]- 0166 Apr, [facility] [place] [facility] [address] [id number] [place] [address]- 8416 Apr, [facility] [place] [facility] [address] [facility] [id number], [place] [address]- 7000 Dec, [facility] [place] [facility] [address] [facility] [id number] [place] [address]- 9656 14 Dec, 2010 [facility] [place] [facility] [address] [facility] [id number], [place] [address]- 8716 Dec, [facility] [place] [facility] [address] [facility] [id number], [place] [address]- 1707 Dec, [facility] [address] [facility] [id number], [place] [address]- 2609 Feb, [facility] [id number] [address]- 6216 Feb, [facility] [address] [facility] [id number], [place] [address]- 8100 Feb, [facility] [id number], [place] [address]- 1842 Feb, [facility] [address] [facility] [id number], [place] [address]- 0215 Aug, [facility] [id number], [place] [address]- 8995 May, IMMUNIZATIONS No Known Immunizations SOCIAL HISTORY Never Assessed REASON FOR VISIT Requests return call/labs PLAN OF CARE VITAL SIGNS MEDICATIONS Unknown [...] UTI 11/27/15 Hospitalization History Upper abdominal pain, [facility] 06/08/16
--- OUTSIDE RECORDS SUMMARY | 2018-02-16 16:29 | XMS REPORT ---
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 Name Role Phone STAHLRENEA Tao Unavailable PROBLEMS Type Condition ICD9-CM Code QJC87-ZU Code Onset Dates Condition Status SNOMED Code Problem Gastroesophageal reflux disease with esophagitis K21.0 Active 470261152 Problem Type 2 diabetes mellitus without complications E11.9 Active 407036074 Problem Seasonal allergic rhinitis, unspecified allergic rhinitis trigger J30.2 Active 901145047 Problem Other obesity due to excess calories E66.09 Active 069312624 Problem Body mass index (BMI) of 33.0-33.9 in adult Z68.33 Active 864109132 Problem Acute seasonal allergic rhinitis, unspecified trigger J30.2 Active 779824963 Problem GERD (gastroesophageal reflux disease) K21.9 Active 531596628 Problem Iron deficiency anemia due to chronic blood loss D50.0 Active 365808671 Problem Acute left-sided back pain with sciatica M54.42 Active 388756307 Problem Abnormal mammogram of left breast R92.8 Active 451858227 Problem Type 2 diabetes mellitus with hyperglycemia E11.65 Active 672162496 Problem longterm current use of insulin Z79.4 Active 505956415 Problem Type 2 diabetes mellitus without complication E11.9 Active 14492896 Problem Other chronic pain G89.29 Active 63876555 Problem Esophageal spasm K22.4 Active 55778182 Problem Ulcer of esophagus without bleeding K22.10 Active 01119806 ALLERGIES Substance Reaction Event Type Date Status Reglan dizziness Drug Allergy Aug, Active Penicillin V Potassium Unknown Drug Allergy Aug, Active ENCOUNTERS Encounter Location Date Diagnosis [facility], [place] [address] [facility] [id number] [address] Oct, [facility] [place] [address] [facility] [id number] [address] Oct, Type 2 diabetes mellitus with hyperglycemia E11.65 [facility] [place] [address] [address] Sep, Acute pain of left knee M25.562 [facility] [id number] [address] Sep, Right anterior knee pain M25.561 [facility] [place] [address] [id number] [address] Sep, Abnormal mammogram of left breast R92.8 [facility] [place] [address] [address] Sep, Abnormal mammogram of left breast R92.8 [place] [address] [id number] [address] Aug, [place] [id number] [place] [address] Aug, Abnormal mammogram of left breast R92.8 [facility] [place] [id number] [address] Aug, [place] [id number] [place] [address]77[address] 2886 Aug, Encounter for well woman exam with routine gynecological exam Z01.419 ; Screen for STD (sexually transmitted disease) Z11.3 ; Screening breast examination Z12.31 ; Other obesity due to excess calories E66.09 and Body mass index (BMI) of 33.0-33.9 in adult Z68.33 [facility] [place] [id number] [address] July, Type 2 diabetes mellitus with hyperglycemia E11.65 and Iron deficiency anemia due to chronic blood loss D50.0 [place] [id number] [address] 16 Jun, 2017 Acute left-sided back pain with sciatica M54.42 ; Type 2 diabetes mellitus without complications E11.9 and 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.4 [facility] [id number] [place] [address] Jun, Dysuria R30.0 and Lumbar back pain M54.5 [facility] [id number] [place] [address] Feb, Acute seasonal allergic rhinitis, unspecified trigger J30.2 [facility] [place] [address] [address] Feb, Acute posthemorrhagic anemia D62 [place] [address] [address] Feb, Acute posthemorrhagic anemia D62 [place] [id number] [place] [address]77- 2730 Feb, Type 2 diabetes mellitus without complication E11.9 and Dry skin L85.3 [place] [address] [address] Dec, [facility] [id number] [place] [address] Nov, Weakness R53.1 and GERD (gastroesophageal reflux disease) K21.9 [place] [id number] [place] [address]75- 3008 Nov, [place] [id number] [place] [address] 47227- 3636 Sep, Type 2 diabetes mellitus without complications E11.9 [facility] [id number] [place] [address] July, Dysuria R30.0 and Acute cystitis with hematuria N30.01 [facility] [id number] [place] [address] Jun, Seasonal allergic rhinitis, unspecified allergic rhinitis trigger J30.2 [place] [id number] [place] [address] Jun, Hiatal hernia K44.9 and Ulcer of esophagus without bleeding K22.10 [facility] [place] [id number] [place] [address] 93559- [address] 07 Jun, 2016 Gastroesophageal reflux disease with esophagitis K21.0 [facility] [id number] [place] [id number] 05 Jun, 2016 [facility] [place] [address] [address] May, Type 2 diabetes mellitus with hyperglycemia E11.65 and 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.4 [place] [address] [address] May, Other chronic pain G89.29 and Pain in left hip M25.552 [place] [address] [address] 13 Apr, 2016 Nausea R11.0 [facility] [place] [address] [address] 09 Apr, 2016 SOB (shortness of breath) R06.02 ; Coughing R05 and Type 2 diabetes mellitus without complication E11.9 [facility] [id number] [place] [address]232 [address] Apr, Bronchitis J40 [place] [id number] [place] [address] 1987 Mar, Hiatal hernia K44.9 and Bronchitis J40 [facility] [place] [id number] [place] [address]36[address] 8989 Mar, [place] [address] [address] Mar, [facility] [place] [id number] [place] [address]86[address] 44[address] Jan, [facility] [place] [address] [address] Dec, [facility] [place] [id number] [place] [address] 69890- 5870 Dec, Esophageal spasm K22.4 [place] [id number] [place] [address]287- 978[address] Dec, [facility] [id number] [place] [address] Dec, Right upper quadrant pain R10.11 and Abdominal pain, unspecified location R10.9 [facility] [id number] [place] [address]15 [address]0595 Dec, Right upper quadrant pain R10.11 [place] [id number] [place] [address] 87538- 6527 Nov, Type 2 diabetes mellitus without complication E11.9 and Right upper quadrant pain R10.11 [facility] [place] [id number] [place] [address]257 [address] Nov, Dysuria R30.0 and Abdominal pain, unspecified location R10.9 [place] [id number] [place] [address] 60158[address] 7300 Aug, Chronic gastritis without bleeding, unspecified gastritis type K29.50 ; Dysuria R30.0 and Type 2 diabetes mellitus without complication E11.9 [place] [id number] [place] [address] 31892- 5574 Aug, Gastroesophageal reflux disease, esophagitis presence not specified K21.9 and Acute cystitis with hematuria N30.01 [facility] [id number] [place] [address] 95250 [address]84[address] 07 Aug, 2015 Dysuria R30.0 [place] [id number] [place] [address] 17138- 5119 July, [facility] [place] [id number] [place] [address] 85550- 3942 Jun, [facility] [place] [id number] [place] [address] 74785- 6120 May, Diabetes type 2, controlled E11.9 and Allergic rhinitis J30.9 [facility] [place] [id number] [place] [address] 35548- 1103 Apr, Type 2 diabetes mellitus without complication E11.9 and Cough R05 [facility] [place] [id number] [place] [address] 15061- 4267 Apr, Vertigo R42 and Non-intractable vomiting with nausea, vomiting of unspecified type R11.2 [facility] IN [facility] [id number] [place] [address] 86698 -9720 Mar, Acute laryngopharyngitis J06.0 ; Acute diarrhea R19.7 and Acute bacterial sinusitis J01.90 [place] [id number] [place] [address] 41847- 0754 Mar, Upper respiratory infection 465.9 [place] [id number] [place] [address] 97512- 1274 Dec, Diabetes E11.9 [place] [id number] [place] [address] 47856- 3727 Nov, Upper respiratory infection 465.9 [facility] [place] [id number] [place] [address] 83688- 1366 Sep, [facility] [place] [id number] [place] [address] 98354- 9809 Sep, Diabetes 250.00 [facility] [place] [id number] [place] [address] 47610- 5246 July, Diabetes mellitus without mention of complication, type II or unspecified type, uncontrolled 250.02 and Cervicalgia 723.1 [facility] [place] [id number] [place] [address] 99554- 7003 July, [facility] [place] [id number] [place] [address] 09677- 2209 Jun, [facility] [place] [address] [place] [id number] [place] [address] Jun, [facility] [place] [facility] [address] [id number] [place] [address]- 2038 May, [facility] [place] [facility] [address] [id number] [place] [address]- 0925 May, [facility] [place] [facility] [address] [id number] [place] [address]- 2598 Apr, [facility] [place] [facility] [address] [id number] [place] [address]- 0115 Apr, [facility] [place] [facility] [address] [id number] [place] [address]- 6579 Apr, [facility] [place] [facility] [address] [id number] [place] [address]- 8247 Apr, [facility] [place] [facility] [address] [id number] [place] [address]- 6917 Mar, [facility] [place] [facility] [address] [id number] [place] [address]- 5827 Mar, [facility] [place] [facility] [address] [id number] [place] [address]- 6986 Feb, [facility] [place] [facility] [address] [id number] [place] [address]- 2728 Feb, [facility] [place] [facility] [address] [id number] [place] [address]- 0035 Jan, [facility] [place] [facility] [address] [id number] [place] [address]- 1919 Jan, [facility] [place] [facility] [address] [id number] [place] [address]- 7556 Aug, [facility] [place] [facility] [address] [id number] [place] [address]- 2546 Aug, [facility] [place] [facility] [address] [id number] [place] [address]- 8803 July, [facility] [address] [id number] [place] [address]- 0246 July, [facility] [place] [facility] [address] [id number] [place] [address]- 5985 Nov, [facility] [place] [facility] [address] [id number] [place] [address]- 2932 Nov, [facility] [place] [facility] [address] [id number] [place] [address]- 7493 Nov, [facility] [address] [id number] [place] [address]- 8389 Sep, [facility] [place] [facility] [address] [id number] [place] [address]- 0771 Aug, [facility] [place] [facility] [address] [id number] [place] [address]- 4242 July, [facility] [place] [facility] [address] [id number] [place] [address]- 3239 Jun, [facility] [place] [facility] [address] [id number] [place] [address]- 7531 Jun, [facility] [place] [facility] [address] [id number] [place] [address]- 6237 Jun, [facility] [place] [facility] [address] [id number] [place] [address]- 3392 Jun, [facility] [place] [facility] [address] [id number] [address]- 7110 May, [facility] [place] [facility] [address] [id number] [place] [address]- 5680 May, [facility] [place] [facility] [address] [id number] [place] [address]- 8204 Jan, [facility] [place] [facility] [address] [id number] [place] [address]26 Jan, [facility] [place] [facility] [address] [id number] [place] [address]- 0417 Dec, [facility] [place] [facility] [address] [id number] [place] [address]- 8531 Dec, [facility] [place] [facility] [address] [id number] [address]- 3338 Dec, [facility] [place] [facility] [address] [id number] [place] [address]- 0531 Dec, [facility] [place] [facility] [address] [id number] [place] [address]- 6350 Dec, [facility] [place] [facility] [address] [id number] [place] [address]- 3926 Dec, [facility] [place] [facility] [address] [facility] [id number] [address]- 0077 Dec, [facility] [place] [facility] [id number] [address]- 5408 Aug, [facility] [address] [place] [address] [id number] [id number] Apr, [facility] [place] [facility] [address], [place] [address]- 6869 Apr, [facility] [place] [facility] [id number] [address]- 1670 Apr, [facility] [place] [facility] [address] [id number], [place] [address]- 7597 Apr, [facility] [place] [facility] [address] [id number][place] [address]- 4783 Apr, [facility] [place] [facility] [address] [id number][place] [address]- 6983 Dec, [facility] [place] [facility] [address] [facility] [id number][place] [address]- 5604 14 Dec, 2010 [facility] [place] [facility] [address] [id number] [address]- 4003 Dec, [facility] [place] [facility] [address] [facility] [id number][place] [address]- 8916 Dec, [facility] [place] [address] [id number] [address]- 5640 Feb, [facility] [place] [address], [place] [address]- 7255 Feb, [facility] [place] [id number] [address]- 2670 Feb, [facility] [place] [address] [facility] [id number], [place] [address]- 3487 Feb, [facility] [place] [id number] [address]- 4332 Aug, [facility] [place] [address] [id number] [address]- 4352 May, IMMUNIZATIONS No Known Immunizations SOCIAL HISTORY Never Assessed REASON FOR VISIT Well Woman Exam-BARRETT Lewis PLAN OF CARE Activity Details Follow Up prn Reason: Pending Test TRICHOMONAS (IN HOUSE) Pending Test BACTERIAL VAGINOSIS (IN HOUSE) VITAL SIGNS Height 63 in 2017-08-09 Weight 189.5 lbs 2017-08-09 Temperature 98.0 degrees Fahrenheit 2017-08-09 Heart Rate 72 bpm 2017-08-09 Respiratory Rate 18 2017-08-09 BMI 33.56 kg/m2 2017-08-09 Blood pressure systolic 114 mmHg 2017-08-09 Blood pressure diastolic 86 mmHg 2017-08-09 MEDICATIONS Medication Instructions Dosage Frequency Start Date End Date Duration Status Ankit Contour Test 1 In Vitro 2 times a day as directed 12h Apr, Active Zyrtec Allergy 10 MG Orally Once a day 1 tablet 24h Active Acetaminophen 500 MG Orally every 6 hrs 2 capsules as needed 6h Active Lantus SoloStar 100 UNIT/ML Subcutaneous Once a day 50 units 24h Active Metformin HCl 1000 MG Orally Twice a day 1 tablet with meals 12h May, 30 day(s) Active Zofran 8 MG Orally every 8 hours as needed 1 tablet Nov, 30 day(s) Active Singulair 10 MG Orally Once a day 1 tablet in the evening 24h May, 30 day(s) Not-Taking Albuterol Sulfate HFA 108 (90 Base) MCG/ACT Inhalation every 4 hrs 2 puffs as needed 4h Active Meloxicam 7.5 MG Orally 2 times a day 1 tablet 12h July, Oct, 30 day(s) Active Ferrous Sulfate 325 (65 Fe) MG Orally Once a day 1 tablet 24h July, 30 day(s) Active RESULTS No Results PROCEDURES Procedure Date Ordered Result Body Site No Charge August 09, 2017 [facility] August 09, 2017 SPECIMEN HANDLING August 09, 2017 Bacterial Vaginosis In House August 09, 2017 INSTRUCTIONS MEDICATIONS ADMINISTERED No Known Medications [...]
--- OUTSIDE RECORDS SUMMARY | 2018-02-16 16:30 | XMS REPORT ---
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 Name Role Phone CHERRY MARTIN Unavailable PROBLEMS Type Condition ICD9-CM Code VUA31-JP Code Onset Dates Condition Status SNOMED Code Problem Gastroesophageal reflux disease with esophagitis K21.0 Active 416377248 Problem Type 2 diabetes mellitus without complications E11.9 Active 703439833 Problem Seasonal allergic rhinitis, unspecified allergic rhinitis trigger J30.2 Active 801173583 Problem Other obesity due to excess calories E66.09 Active 468200081 Problem Body mass index (BMI) of 33.0-33.9 in adult Z68.33 Active 794348717 Problem Acute seasonal allergic rhinitis, unspecified trigger J30.2 Active 397662803 Problem GERD (gastroesophageal reflux disease) K21.9 Active 554856227 Problem Iron deficiency anemia due to chronic blood loss D50.0 Active Problem Acute left-sided back pain with sciatica M54.42 Active 252445307 Problem Abnormal mammogram of left breast R92.8 Active 133331357 Problem Type 2 diabetes mellitus with hyperglycemia E11.65 Active 656711687 Problem 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 [id number] [address] Oct, Type 2 diabetes mellitus with hyperglycemia E11.65 [facility] [address] [facility] [id number], [place] [address] Sep, Acute pain of left knee M25.562 [facility] [address], [place] [address] Sep, Right anterior knee pain M25.561 [place] [address] [id number] [address] Sep, Abnormal mammogram of left breast R92.8 [place] [address] [place] [id number] [place] [address] 75873- 6008 Sep, Abnormal mammogram of left breast R92.8 [place] [address] [place] [id number] [place] [address] 76257- 1252 Aug, [place] [address] [place] [id number] [place] [address] 06073- 0965 Aug, Abnormal mammogram of left breast R92.8 [place] [address] [place] [id number] [place] [address] 00155- 6765 Aug, [place] [id number] [place] [address] 46770- 1044 Aug, Encounter for well woman exam with routine gynecological exam Z01.419 ; Screen for STD (sexually transmitted disease) Z11.3 ; Screening breast examination Z12.31 ; Other obesity due to excess calories E66.09 and Body mass index (BMI) of 33.0-33.9 in adult Z68.33 [place] [id number] [place] [address] 42304- 5709 July, Type 2 diabetes mellitus with hyperglycemia E11.65 and Iron deficiency anemia due to chronic blood loss D50.0 [place] [address] [place] [address] 84893- 2691 16 Jun, 2017 Acute left-sided back pain with sciatica M54.42 ; Type 2 diabetes mellitus without complications E11.9 and half-way current use of insulin Z79.4 [facility] [address], [place] [address] Jun, Dysuria R30.0 and Lumbar back pain M54.5 [facility] [id number] [place] [address] 83577 -7615 29 Feb, 2017 Acute seasonal allergic rhinitis, unspecified trigger J30.2 [facility] [id number] [place] [address] 46883- 6434 18 Feb, 2017 Acute posthemorrhagic anemia D62 [place] [address] [address] 05 Feb, 2017 Acute posthemorrhagic anemia D62 [place] [address] 24444- 3788 04 Feb, 2017 Type 2 diabetes mellitus without complication E11.9 and Dry skin L85.3 [place] [address] [address]- [address] Dec, [facility] [address] [address] Nov, Weakness R53.1 and GERD (gastroesophageal reflux disease) K21.9 [place] [address] [id number] [place] [address] 26776- 8159 Nov, [place] [address] [id number] [place] [address] 24252- 9926 Sep, Type 2 diabetes mellitus without complications E11.9 [facility] [id number] [place] [address] 20707 [address]2746 July, Dysuria R30.0 and Acute cystitis with hematuria N30.01 [facility] [place] [address] [address] [id number] [place] [address] 73043 -7728 Jun, Seasonal allergic rhinitis, unspecified allergic rhinitis trigger J30.2 [place] [address] [id number] [place] [address] 40904- 2748 Jun, Hiatal hernia K44.9 and Ulcer of esophagus without bleeding K22.10 [place] [address] 18314- 3647 Jun, Gastroesophageal reflux disease with esophagitis K21.0 [facility] [address] [id number] Jun, [facility] [id number] [place] [address] 22405- 9999 May, Type 2 diabetes mellitus with hyperglycemia E11.65 and 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 [facility] [address] [address]1854- 9143 May, Other chronic pain G89.29 and Pain in left hip M25.552 [place] [address] 92017- 6767 13 Apr, 2016 Nausea R11.0 [facility] [address] 17498- 1317 09 Apr, 2016 SOB (shortness of breath) R06.02 ; Coughing R05 and Type 2 diabetes mellitus without complication E11.9 [facility] [id number] [place] [address] 24840 -8434 Apr, Bronchitis J40 [facility] [address] 73917- 6[address] Mar, Hiatal hernia K44.9 and Bronchitis J40 [facility] [address] [id number] [place] [address] 16352- 1617 Mar, [facility] [address] [id number] [place] [address] 66494- 3047 Mar, [facility] [address] [id number] [place] [address] 43605- 2873 Jan, [facility] [address] 36939- 1319 Dec, [facility] [address] [id number] [place] [address] 13769- 4554 Dec, Esophageal spasm K22.4 [facility] [address], [place] [address] Dec, [facility] [id number] [place] [address] 53017 [address]3662 Dec, Right upper quadrant pain R10.11 and Abdominal pain, unspecified location R10.9 [facility] [id number] [place] [address] 33764 -7355 Dec, Right upper quadrant pain R10.11 [place] [address] [place] [id number] [place] [address] 47218- 1754 Nov, Type 2 diabetes mellitus without complication E11.9 and Right upper quadrant pain R10.11 [facility] [place] [address] [id number] [place] [address] 47062 -1541 Nov, Dysuria R30.0 and Abdominal pain, unspecified location R10.9 [place] [address] [address] [id number] [place] [address] 65711- 1468 Aug, Chronic gastritis without bleeding, unspecified gastritis type K29.50 ; Dysuria R30.0 and Type 2 diabetes mellitus without complication E11.9 [place] [address] [address] [id number] [place] [address] 37383- 7875 Aug, Gastroesophageal reflux disease, esophagitis presence not specified K21.9 and Acute cystitis with hematuria N30.01 [facility] [id number] [place] [address] 81316 -2693 Aug, Dysuria R30.0 [place] [address] [id number] [place] [address] 48155- 2187 July, [place] [address] [address] [id number] [place] [address] 68015- 6141 Jun, [place] [id number] [place] [address] 09040- 8628 May, Diabetes type 2, controlled E11.9 and Allergic rhinitis J30.9 [place] [address] [id number] [place] [address] 34815- 8773 Apr, Type 2 diabetes mellitus without complication E11.9 and Cough R05 [facility] [address] [place] [id number] [place] [address] 35008- 6065 Apr, Vertigo R42 and Non-intractable vomiting with nausea, vomiting of unspecified type R11.2 [facility] [id number] [place] [address] 50574 -2171 Mar, Acute laryngopharyngitis J06.0 ; Acute diarrhea R19.7 and Acute bacterial sinusitis J01.90 [place] [address] [place] [id number] [place] [address] 88283- 8701 Mar, Upper respiratory infection 465.9 [place] [address] [id number] [place] [address] 07237- 1829 Dec, Diabetes E11.9 [facility] [address] [id number] [place] [address] 15325- 1857 Nov, Upper respiratory infection 465.9 [facility] [address] [place] [id number] [place] [address] 02973- 1978 Sep, [facility] [address] [id number] [place] [address] 90213- 5063 Sep, Diabetes 250.00 [place] [address] [place] [id number] [place] [address] 33684- 4564 July, Diabetes mellitus without mention of complication, type II or unspecified type, uncontrolled 250.02 and Cervicalgia 723.1 [facility] [address] [id number] [place] [address] 76328- 3071 July, [facility] [address] [id number] [place] [address] 14224- 7205 Jun, [facility] [address] [place] [id number] [place] [address] 20976- 6957 Jun, [facility] [address] [place] [id number] [place] [address] 60564- 2856 May, [facility] [place] [facility] [address] [id number] [place] [address]- 8337 May, [facility] [place] [facility] [address] [id number] [place] [address]- 0278 Apr, [facility] [place] [facility] [address] [id number] [place] [address]- 0265 Apr, [facility] [place] [facility] [address] [id number] [place] [address] Apr, [facility] [place] [facility] [address] [id number] [place] [address]- 2405 Apr, [facility] [place] [facility] [address] [id number] [place] [address]- 4330 Mar, [facility] [place] [facility] [address] [id number] [place] [address]- 7666 Mar, [facility] [place] [facility] [address] [id number] [place] [address]- 5736 Feb, [facility] [place] [facility] [address] [id number] [place] [address]- 6140 Feb, [facility] [place] [facility] [address] [id number] [place] [address]- 4767 Jan, [facility] [place] [facility] [address] [id number] [place] [address]- 3436 Jan, [facility] [place] [facility] [address] [id number] [place] [address]- 2783 Aug, [facility] [place] [facility] [address] [id number] [place] [address] Aug, [facility] [place] [facility] [address] [id number] [place] [address] July, [facility] [place] [facility] [address] [id number] [place] [address]- 1872 July, [facility] [place] [facility] [address] [id number] [place] [address]- 8004 13 Nov, 2012 [facility] [address] [id number] [place] [address]- 0758 13 Nov, 2012 [facility] [place] [facility] [address] [id number] [place] [address]- 5935 Nov, [facility] [place] [facility] [address] [id number] [place] [address]- 5415 Sep, [facility] [place] [facility] [address] [id number] [place] [address]- 7038 Aug, [facility] [place] [facility] [address] [id number] [place] [address]- 7259 July, [facility] [address] [id number] [place] [address]- 2319 Jun, [facility] [address] [id number] [place] [address]- 0700 Jun, [facility] [address] [id number] [place] [address]- 7362 Jun, [facility] [address] [id number] [place] [address]- 0940 16 Jun, 2012 [facility] [address] [id number] [place] [address]- 8275 May, [facility] [address] [id number] [place] [address]- 4688 May, [facility] [place] [facility] [address] [id number] [place] [address]- 1649 Jan, [facility] [place] [facility] [address] [id number] [place] [address]- 8184 Jan, [facility] [place] [facility] [address] [id number] [place] [address]- 0735 Dec, [facility] [place] [facility] [address] [id number] [place] [address]- 1236 Dec, [facility] [place] [facility] [address] [id number] [place] [address]- 5204 Dec, [facility] [place] [facility] [address] [id number], [place] [address]- 5346 Dec, [facility] [place] [facility] [address] [facility] [id number] [place] [address]- 7706 Dec, [facility] [place] [facility] [address] [id number], [place] [address]- 2986 Dec, [facility] [place] [facility] [address] [id number] [place] [address]- 2898 Dec, [facility] [place] [facility] [address] [facility] [id number], [place] [address]- 7736 Aug, [facility] [address] [id number] [id number] Apr, [facility] [place] [facility] [address] [facility] [id number], [place] [address]- 1324 Apr, [facility] [place] [facility] [address] [id number], [place] [address]- 6836 Apr, [facility] [place] [facility] [address] [place] [id number], [place] [address]- 6116 Apr, [facility] [place] [facility] [address] [id number], [place] [address]- 9746 Apr, [facility] [place] [facility] [address] [id number], [place] [address]- 8836 Dec, [facility] [place] [facility] [address] [id number], [place] [address]- 4276 14 Dec, 2010 [facility] [place] [facility] [address] [facility] [id number], [place] [address]- 6856 Dec, [facility] [place] [facility] [address] [facility] [id number], [place] [address]- 0306 Dec, [facility] [place] [facility] [address] [place] [id number], [place] [address]- 0701 19 Feb, 2010 [facility] [address], [place] [address]- 8380 16 Feb, 2010 [facility] [address], [place] [address]- 6584 Feb, [facility] [address], [place] [address]- 6876 Feb, [facility] [address], [place] [address]- 3946 Aug, [facility] [id number] [place] [address] 21498- 5974 May, IMMUNIZATIONS No Known Immunizations SOCIAL HISTORY Never Assessed REASON FOR VISIT DM F/U WB-MA, Sciatic nerve pain on the left side PLAN OF CARE VITAL SIGNS Height 63 in 2017-07-22 Weight 183 lbs 2017-07-22 Temperature 96.6 degrees Fahrenheit 2017-07-22 Heart Rate 78 bpm 2017-07-22 Respiratory Rate 18 2017-07-22 BMI 32.41 kg/m2 2017-07-22 Blood pressure systolic 118 mmHg 2017-07-22 Blood pressure diastolic 78 mmHg 2017-07-22 MEDICATIONS Medication Instructions Dosage Frequency Start Date End Date Duration Status Zofran 8 MG Orally every 8 hours as needed 1 tablet Nov, 30 day(s) Not-Taking Zyrtec Allergy 10 MG Orally Once a day 1 tablet 24h Active Albuterol Sulfate HFA 108 (90 Base) MCG/ACT Inhalation every 4 hrs 2 puffs as needed 4h Active Singulair 10 MG Orally Once a day 1 tablet in the evening 24h May, 30 day(s) Not-Taking Ankit Contour Test 1 In Vitro 2 times a day as directed 12h Apr, Active Ferrous Sulfate 325 (65 Fe) MG Orally Once a day 1 tablet 24h July, 30 day(s) Active Lantus SoloStar 100 UNIT/ML Subcutaneous Once a day 50 units 24h Active Acetaminophen 500 MG Orally every 6 hrs 2 capsules as needed 6h Active Meloxicam 7.5 MG Orally 2 times a day 1 tablet 12h July, Oct, 30 day(s) Active Metformin HCl 1000 MG Orally Twice a day 1 tablet with meals 12h 09 May, 2016 30 day(s) Active RESULTS Name Result Date Reference Range CBC 2017-07-22 WHITE BLOOD CELL COUNT 6.4 3.8-10.8 RED BLOOD CELL COUNT 4.18 3.80-5.10 HEMOGLOBIN 12.8 11.7-15.5 HEMATOCRIT 38.7 35.0-45.0 MCV 92.6 80.0-100.0 MCH 30.6 27.0-33.0 MCHC 33.1 32.0-36.0 RDW 12.7 11.0-15.0 PLATELET COUNT 371 140-400 MPV 9.5 7.5-12.5 ABSOLUTE NEUTROPHILS 3270 3212-3228 ABSOLUTE LYMPHOCYTES 2470 850-3900 ABSOLUTE MONOCYTES 538 200-950 ABSOLUTE EOSINOPHILS 83 15-500 ABSOLUTE BASOPHILS 38 0-200 NEUTROPHILS 51.1 LYMPHOCYTES 38.6 MONOCYTES 8.4 EOSINOPHILS 1.3 BASOPHILS 0.6 PROCEDURES Procedure Date Ordered Result Body Site [facility] July 22, 2017 VENIPUNCT, ROUTINE* July 22, 2017 INSTRUCTIONS MEDICATIONS ADMINISTERED No Known Medications [...] UTI 11/27/15 Hospitalization History Upper abdominal pain, Ileus-VC 06/08/16
--- OUTSIDE RECORDS SUMMARY | 2018-02-16 16:30 | XMS REPORT ---
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 Name Role Phone CHERRY MARTIN Unavailable PROBLEMS Type Condition ICD9-CM Code [id number] Code Onset Dates Condition Status SNOMED Code Problem Gastroesophageal reflux disease with esophagitis K21.0 Active 732945388 Problem Type 2 diabetes mellitus without complications E11.9 Active 213962650 Problem Seasonal allergic rhinitis, unspecified allergic rhinitis trigger J30.2 Active 423934340 Problem Other obesity due to excess calories E66.09 Active 935370804 Problem Body mass index (BMI) of 33.0-33.9 in adult Z68.33 Active 244007757 Problem Acute seasonal allergic rhinitis, unspecified trigger J30.2 Active 876821929 Problem GERD (gastroesophageal reflux disease) K21.9 Active 123915905 Problem Iron deficiency anemia due to chronic blood loss D50.0 Active 122004544 Problem Acute left-sided back pain with sciatica M54.42 Active 860327754 Problem Abnormal mammogram of left breast R92.8 Active 459786897 Problem Type 2 diabetes mellitus with hyperglycemia E11.65 Active 979667314 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 [id number] [address] Oct, [facility] [address] [facility] [id number], [place] [address] Sep, Acute pain of left knee M25.562 [facility] [address], [place] [address] Sep, Right anterior knee pain M25.561 [place] [address], [place] [address] Sep, Abnormal mammogram of left breast R92.8 [place] [address] [place] [id number] [place] [address]49- 8010 Sep, Abnormal mammogram of left breast R92.8 [place] [address] [place] [id number] [place] [address] 25069- 8652 Aug, [place] [address] [place] [id number] [place] [address] 99819- 2544 Aug, Abnormal mammogram of left breast R92.8 [place] [address] [place] [id number] [place] [address] 10925- 9990 08 Aug, 2017 [place] [address] [place] [address] 55662- 0846 Aug, Encounter for well woman exam with routine gynecological exam Z01.419 ; Screen for STD (sexually transmitted disease) Z11.3 ; Screening breast examination Z12.31 ; Other obesity due to excess calories E66.09 and Body mass index (BMI) of 33.0-33.9 in adult Z68.33 [place] [address] [place] [address] 40307- 8494 July, Type 2 diabetes mellitus with hyperglycemia E11.65 and Iron deficiency anemia due to chronic blood loss D50.0 [place] [address], [place] [address] 16 Jun, 2017 Acute left-sided back pain with sciatica M54.42 ; Type 2 diabetes mellitus without complications E11.9 and correction current use of insulin Z79.4 [facility] [address], [place] [address] Jun, Dysuria R30.0 and Lumbar back pain M54.5 [facility] [address] [place] [id number] [place] [address] Feb, Acute seasonal allergic rhinitis, unspecified trigger J30.2 [place] [address] [place] [id number] [place] [address] 56285- 5486 18 Feb, 2017 Acute posthemorrhagic anemia D62 [place] [address] [address]- [address] 05 Feb, 2017 Acute posthemorrhagic anemia D62 [place] [address] [address]- 9[address] 04 Feb, 2017 Type 2 diabetes mellitus without complication E11.9 and Dry skin L85.3 [place] [address] [address]- [address] Dec, [facility] [place] [address] [address] Nov, Weakness R53.1 and GERD (gastroesophageal reflux disease) K21.9 [place] [address] [address]- 6259 Nov, [place] [address] [address]- [address]1 Sep, Type 2 diabetes mellitus without complications E11.9 [facility] [place] [address] [place] [id number] [place] [address]83 [address] July, Dysuria R30.0 and Acute cystitis with hematuria N30.01 [facility] [place] [address] [place] [id number] [place] [address]55 [address] Jun, Seasonal allergic rhinitis, unspecified allergic rhinitis trigger J30.2 [place] [address] [place] [id number] [place] [address] 16537- 2322 Jun, Hiatal hernia K44.9 and Ulcer of esophagus without bleeding K22.10 [place] [address] [address]197- 9522 Jun, Gastroesophageal reflux disease with esophagitis K21.0 [facility] [address] [id number] Jun, [facility] [address] [address] May, Type 2 diabetes mellitus with hyperglycemia E11.65 and correction current use of insulin Z79.4 [place] [address] [address]- 92[address] May, Other chronic pain G89.29 and Pain in left hip M25.552 [place] [address] [address]- [address] 13 Apr, 2016 Nausea R11.0 [place] [address] [address]- 6636 09 Apr, 2016 SOB (shortness of breath) R06.02 ; Coughing R05 and Type 2 diabetes mellitus without complication E11.9 [facility] [address] [place] [id number] [place] [address]77 [address] Apr, Bronchitis J40 [facility] [address] [address] 1998 Mar, Hiatal hernia K44.9 and Bronchitis J40 [facility] [address] [address]- [address] Mar, [facility] [address] [address]- 1430 Mar, [facility] [address] [address]281- 3412 Jan, [facility] [address] [address] Dec, [facility] [address] 4[address]- 8563 Dec, Esophageal spasm K22.4 [facility] [address] [place] [id number] [place] [address] 21599- 2731 Dec, [facility] [address] [place] [id number] [place] [address]878 [address]697 Dec, Right upper quadrant pain R10.11 and Abdominal pain, unspecified location R10.9 [facility] [address] [address] Dec, Right upper quadrant pain R10.11 [facility] [address] [place] [id number] [place] [address] 36930- 5749 Nov, Type 2 diabetes mellitus without complication E11.9 and Right upper quadrant pain R10.11 [facility] [place] [address] [place] [id number] [place] [address] 23733 [address] Nov, Dysuria R30.0 and Abdominal pain, unspecified location R10.9 [place] [address] [address]- [address] Aug, Chronic gastritis without bleeding, unspecified gastritis type K29.50 ; Dysuria R30.0 and Type 2 diabetes mellitus without complication E11.9 [place] [address] [address]- [address] Aug, Gastroesophageal reflux disease, esophagitis presence not specified K21.9 and Acute cystitis with hematuria N30.01 [facility] [address] [place] [id number] [place] [address] 63782 [address]1429 Aug, Dysuria R30.0 [place] [address] [place] [id number] [place] [address] 14743- 0953 July, [place] [address] 15821- 9413 Jun, [place] [address] 32248- 8032 May, Diabetes type 2, controlled E11.9 and Allergic rhinitis J30.9 [place] [address] [place] [address]- 2184 Apr, Type 2 diabetes mellitus without complication E11.9 and Cough R05 [facility] [address] 80224- 0598 Apr, Vertigo R42 and Non-intractable vomiting with nausea, vomiting of unspecified type R11.2 [facility] [address] [place] [id number] [place] [address] 86515 -3898 Mar, Acute laryngopharyngitis J06.0 ; Acute diarrhea R19.7 and Acute bacterial sinusitis J01.90 [facility] [address] [place] [id number] [place] [address] 47785- 3191 Mar, Upper respiratory infection 465.9 [facility] [address] [place] [id number] [place] [address] 63418- 2300 Dec, Diabetes E11.9 [facility] [address] 8[address]17- 4291 Nov, Upper respiratory infection 465.9 [facility] [address] [place] [id number] [place] [address] 69861- 3607 Sep, [facility] [address] 67054- 8503 Sep, Diabetes 250.00 [facility] [address] [place] [id number] [place] [address] 36117- 5845 July, Diabetes mellitus without mention of complication, type II or unspecified type, uncontrolled 250.02 and Cervicalgia 723.1 [facility] [address] [place] [id number] [place] [address] 60172- 0478 July, [facility] [address] 16232- 4496 Jun, [facility] [address] [place] [id number] [place] [address] 70185- 1124 Jun, [facility] [address] [address]147- 1598 May, [facility] [place] [facility] [address] [id number] [place] [address]- 6277 May, [facility] [place] [facility] [address] [id number] [place] [address]- 6635 Apr, [facility] [place] [facility] [address] [id number] [place] [address]- 6127 Apr, [facility] [place] [facility] [address] [id number] [place] [address]- 2422 Apr, [facility] [place] [facility] [address] [id number] [place] [address]- 0019 Apr, [facility] [place] [facility] [address] [id number] [place] [address]- 6157 Mar, [facility] [place] [facility] [address] [id number] [place] [address]- 9227 Mar, [facility] [place] [facility] [address] [id number] [place] [address]- 9472 Feb, [facility] [place] [facility] [address] [id number] [place] [address]- 9902 Feb, [facility] [place] [facility] [address] [id number] [place] [address]- 3848 Jan, [facility] [place] [facility] [address] [id number] [place] [address]- 5790 Jan, [facility] [place] [facility] [address] [id number] [place] [address]- 0046 Aug, [facility] [place] [facility] [address] [id number] [place] [address]- 5416 Aug, [facility] [place] [facility] [address] [id number] [place] [address]- 5174 July, [facility] [place] [facility] [address] [id number] [place] [address]- 1356 July, [facility] [place] [facility] [address] [id number] [place] [address]- 2770 13 Nov, 2012 [facility] [address] [id number] [place] [address]- 5670 13 Nov, 2012 [facility] [address] [id number] [place] [address]- 1038 12 Nov, 2012 [facility] [address] [id number] [place] [address]- 0059 Sep, [facility] [address] [id number] [place] [address]- 2770 Aug, [facility] [address] [id number] [place] [address]- 3562 July, [facility] [address] [id number] [place] [address]- 6122 Jun, [facility] [address] [id number] [place] [address]- 9397 Jun, [facility] [address] [id number] [place] [address]- 9087 Jun, [facility] [address] [id number] [place] [address]- 6287 16 Jun, 2012 [facility] [address] [id number] [place] [address]- 0789 May, [facility] [address] [id number] [place] [address]- 3573 May, [facility] [address] [id number] [place] [address]- 6529 Jan, [facility] [place] [facility] [address] [id number] [place] [address]- 2067 Jan, [facility] [address] [id number] [place] [address]- 3892 Dec, [facility] [address] [id number] [place] [address]- 0487 Dec, [facility] [place] [facility] [address] [id number] [place] [address]- 5860 Dec, [facility] [place] [facility] [address] [id number] [place] [address]- 9713 Dec, [facility] [place] [facility] [address] [id number] [place] [address]- 4106 Dec, [facility] [place] [facility] [address] [id number] [place] [address]- 1016 Dec, [facility] [place] [facility] [address] [id number] [place] [address]- 7711 Dec, [facility] [place] [facility] [address] [id number] [place] [address]- 5284 Aug, [facility] [address] [id number] [id number] Apr, [facility] [place] [facility] [address] [id number], [place] [address]- 4186 Apr, [facility] [place] [facility] [address] [id number] [place] [address]- 1831 Apr, [facility] [place] [facility] [address] [id number], [place] [address]- 9475 Apr, [facility] [place] [facility] [address] [id number], [place] [address]- 1256 Apr, [facility] [place] [facility] [address] [id number], [place] [address]- 7981 Dec, [facility] [place] [facility] [address] [id number] [place] [address]- 8712 14 Dec, 2010 [facility] [place] [facility] [address] [id number], [place] [address]- 9472 Dec, [facility] [place] [facility] [address] [id number], [place] [address]- 2083 Dec, [facility] [place] [facility] [address] [id number], [place] [address]- 9533 19 Feb, 2010 [facility] [address] [id number] [address] 6[address] 16 Feb, 2010 [facility] [address] [place] [id number], [place] [address]- 0783 Feb, [facility] [address], [place] [address]- 2527 Feb, [facility] [address], [place] [address]- 2[address] 14 Aug, 2009 [facility] [address] [place] [id number], [place] [address] 8810 May, IMMUNIZATIONS No Known Immunizations SOCIAL HISTORY Never Assessed REASON FOR VISIT Diabetes-Lance HYDE PLAN OF CARE Activity Details Follow Up 4 Weeks Reason:dm2 ooc VITAL SIGNS Height 63 in 2017-06-24 Weight 180.0 lbs 2017-06-24 Temperature 98.4 degrees Fahrenheit 2017-06-24 Heart Rate 68 bpm 2017-06-24 Respiratory Rate 18 2017-06-24 BMI 31.88 kg/m2 2017-06-24 Blood pressure systolic 122 mmHg 2017-06-24 Blood pressure diastolic 82 mmHg 2017-06-24 MEDICATIONS Medication Instructions Dosage Frequency Start Date End Date Duration Status Zofran 8 MG Orally every 8 hours as needed 1 tablet Nov, 30 day(s) Not-Taking Ketorolac Tromethamine 10 mg Orally every 6 hrs 1 tablet with food or milk as needed 6h Jun, Jun, 5 day(s) Active Albuterol Sulfate HFA 108 (90 Base) MCG/ACT Inhalation every 4 hrs 2 puffs as needed 4h Active Singulair 10 MG Orally Once a day 1 tablet in the evening 24h 25 May, 2015 30 day(s) Not-Taking Zyrtec Allergy 10 MG Orally Once a day 1 tablet 24h Active Lantus SoloStar 100 UNIT/ML Subcutaneous Once a day 50 units 24h Active Baclofen 20 MG Orally every 8 hrs 1 tablet with food or milk 8h 09 Jun, 2017 Jun, 7 days Active Acetaminophen 500 MG Orally every 6 hrs 2 capsules as needed 6h Active Ankit Contour Test 1 In Vitro 2 times a day as directed 12h 26 Feb, 2016 Active Metformin HCl 1000 MG Orally Twice a day 1 tablet with meals 12h May, 30 day(s) Active RESULTS Name Result Date Reference Range A1C (IN HOUSE) 2017-06-24 A1C IN HOUSE 8.0 4.3 - 5.6 % Previous A1c 6.9 Lot [id number] Exp date 04/2019 PROCEDURES Procedure Date Ordered Result Body Site GLYCATED HEMOGLOBIN TEST June 24, 2017 INSTRUCTIONS MEDICATIONS ADMINISTERED No Known Medications [...]
--- OUTSIDE RECORDS SUMMARY | 2018-02-16 16:31 | XMS REPORT ---
Author Author CHERRY MARTIN Organization [facility] Address [address] [place] [address] Care Team Providers Care Commercial Accountant Name Role Phone CHERRY MARTIN Unavailable PROBLEMS Type Condition ICD9-CM Code [id number] Code Onset Dates Condition Status SNOMED Code Problem Other chronic pain G89.29 Active 20162084 Problem Gastroesophageal reflux disease with esophagitis K21.0 Active 711379176 Problem Ulcer of esophagus without bleeding K22.10 Active 74152690 Problem Type 2 diabetes mellitus without complication E11.9 Active 18870943 Problem Esophageal spasm K22.4 Active 88800366 Problem Type 2 diabetes mellitus with hyperglycemia E11.65 Active 201948708 Problem MCC current use of insulin Z79.4 Active 101052552 Problem Iron deficiency anemia due to chronic blood loss D50.0 Active 991696557 Problem Acute left-sided back pain with sciatica M54.42 Active 207262390 Problem Type 2 diabetes mellitus without complications E11.9 Active 894061903 Problem Seasonal allergic rhinitis, unspecified allergic rhinitis trigger J30.2 Active 310474185 Problem Acute seasonal allergic rhinitis, unspecified trigger J30.2 Active 491521493 Problem GERD (gastroesophageal reflux disease) K21.9 Active 141168663 ALLERGIES No Information ENCOUNTERS Encounter Location Date Diagnosis [facility] [id number], [place] [address] Aug, [facility] [address], [place] [address] July, Type 2 diabetes mellitus with hyperglycemia E11.65 and Iron deficiency anemia due to chronic blood loss D50.0 [facility] [id number], [place] [address] Jun, Acute left-sided back pain with sciatica M54.42 ; Type 2 diabetes mellitus without complications E11.9 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 [facility] [id number] [place] [address]696 Jun, Dysuria R30.0 and Lumbar back pain M54.5 [facility] [id number] [place] [address]165 Feb, Acute seasonal allergic rhinitis, unspecified trigger J30.2 [facility] [address] [address] Feb, Acute posthemorrhagic anemia [address] [address] Feb, Acute posthemorrhagic anemia D62 [id number] [place] [address]198- 1476 Feb, Type 2 diabetes mellitus without complication E11.9 and Dry skin L85.3 [address] [address] Dec, [facility] [id number] [place] [address]45 -[address]31 Nov, Weakness R53.1 and GERD (gastroesophageal reflux disease) K21.9 [place] [id number] [place] [address] 18156- 7640 Nov, [place] [id number] [place] [address] 10202- 4770 Sep, Type 2 diabetes mellitus without complications E11.9 [facility] [id number] [place] [address]8732 -[address]13 July, Dysuria R30.0 and Acute cystitis with hematuria N30.01 [facility] [id number] [place] [address] 96780 -1178 Jun, Seasonal allergic rhinitis, unspecified allergic rhinitis trigger J30.2 [place] [id number] [place] [address] 82641- 1748 Jun, Hiatal hernia K44.9 and Ulcer of esophagus without bleeding K22.10 [facility] [address] [address] 07 Jun, 2016 Gastroesophageal reflux disease with esophagitis K21.0 [facility] [address] [id number] Jun, 2016 [facility] [address] [address] May, Type 2 diabetes mellitus with hyperglycemia E11.65 and MCC current use of insulin Z79.4 [address] [address] [address] [address]- [address] May, Other chronic pain G89.29 and Pain in left hip M25.552 [place] [address] [address]- [address] 13 Apr, 2016 Nausea R11.0 [facility] [address] [address]- [address] 09 Apr, 2016 SOB (shortness of breath) R06.02 ; Coughing R05 and Type 2 diabetes mellitus without complication E11.9 [facility] [id number] [place] [address]40 -7649 Apr, Bronchitis J40 [facility] [id number] [place] [address] 81526- 1969 Mar, Hiatal hernia K44.9 and Bronchitis J40 [facility] [address] [address]- [address] Mar, [facility] [address] 34006- 2869 Mar, [facility] [address] 6[address]47- 1565 Jan, [facility] [address] 62983- 9128 Dec, [facility] [id number] [place] [address] 07470- 9860 Dec, Esophageal spasm K22.4 [facility] [id number] [place] [address] 74030- 3562 Dec, [facility] [id number] [place] [address] 26646 -9963 Dec, Right upper quadrant pain R10.11 and Abdominal pain, unspecified location R10.9 [facility] [id number] [place] [address] 68577 -1587 Dec, Right upper quadrant pain R10.11 [place] [id number] [place] [address] 35955- 6784 Nov, Type 2 diabetes mellitus without complication E11.9 and Right upper quadrant pain R10.11 [facility] [id number] [place] [address] 90837 -0481 Nov, Dysuria R30.0 and Abdominal pain, unspecified location R10.9 [place] [id number] [place] [address] 20166- 5695 Aug, Chronic gastritis without bleeding, unspecified gastritis type K29.50 ; Dysuria R30.0 and Type 2 diabetes mellitus without complication E11.9 [place] [id number] [place] [address] 20560- 1112 Aug, Gastroesophageal reflux disease, esophagitis presence not specified K21.9 and Acute cystitis with hematuria N30.01 [facility] [id number] [place] [address] 51124 -8282 07 Aug, 2015 Dysuria R30.0 [place] [id number] [place] [address] 70001- 2671 July, [facility] [id number] [place] [address] 94765- 3619 Jun, [facility] [id number] [place] [address] 15558- 5385 May, Diabetes type 2, controlled E11.9 and Allergic rhinitis J30.9 [facility] [id number] [place] [address] 67177- 0325 Apr, Type 2 diabetes mellitus without complication E11.9 and Cough R05 [facility] [id number] [place] [address] 43195- 9694 Apr, Vertigo R42 and Non-intractable vomiting with nausea, vomiting of unspecified type R11.2 [facility] [id number] [place] [address] 46835 -2766 Mar, Acute laryngopharyngitis J06.0 ; Acute diarrhea R19.7 and Acute bacterial sinusitis J01.90 [place] [id number] [place] [address] 78162- 5451 Mar, Upper respiratory infection 465.9 [place] [id number] [place] [address] 96607- 7901 Dec, Diabetes E11.9 [place] [id number] [place] [address] 22387- 1336 Nov, Upper respiratory infection 465.9 [facility] [address] [place] [address] 11035- 3094 Sep, [facility] [address] [place] [address] 24212- 8669 Sep, Diabetes 250.00 [facility] [id number] [place] [address] 52237- 7971 July, Diabetes mellitus without mention of complication, type II or unspecified type, uncontrolled 250.02 and Cervicalgia 723.1 [facility] [address] [place] [address] 03323- 0657 July, [facility] [address] [place] [address] 01946- [address] Jun, [facility] [id number] [place] [address] Jun, [facility] [address] [id number] [place] [address]- [address]9 May, [facility] [place] [facility] [address] [id number] [place] [address]- 2076 May, [facility] [place] [facility] [address] [id number] [place] [address]- 1669 Apr, [facility] [place] [facility] [address] [id number] [place] [address]- 8884 Apr, [facility] [place] [facility] [address] [id number] [place] [address]- 5491 Apr, [facility] [place] [facility] [address] [id number] [place] [address]- 2189 Apr, [facility] [place] [facility] [address] [id number] [place] [address]- 2540 Mar, [facility] [place] [facility] [address] [id number] [place] [address]- 9119 Mar, [facility] [place] [facility] [address] [id number] [place] [address]- 3226 Feb, [facility] [place] [facility] [address] [id number] [place] [address]- 0194 Feb, [facility] [place] [facility] [address] [id number] [place] [address]- 0351 Jan, [facility] [place] [facility] [address] [id number] [place] [address]- 9126 14 Jan, 2014 [facility] [place] [facility] [address] [id number] [place] [address]- 4135 Aug, [facility] [place] [facility] [address] [id number] [place] [address]- 1146 Aug, [facility] [place] [facility] [address] [id number] [place] [address]- 8975 July, [facility] [address] [id number] [place] [address]- 3549 July, [facility] [place] [facility] [address] [id number] [place] [address]- 0084 Nov, [facility] [place] [facility] [address] [id number] [place] [address]- 9391 Nov, [facility] [place] [facility] [address] [id number] [place] [address]- 0403 Nov, [facility] [place] [facility] [address] [id number] [place] [address]- 3198 Sep, [facility] [place] [facility] [address] [id number] [place] [address]- 2109 Aug, [facility] [place] [facility] [address] [id number] [place] [address]- 4383 July, [facility] [place] [facility] [address] [id number] [place] [address]- 0906 Jun, [facility] [place] [facility] [address] [id number] [place] [address]- 7650 Jun, [facility] [place] [facility] [address] [id number] [place] [address]- 8501 Jun, [facility] [place] [facility] [address] [id number] [place] [address]- 9580 Jun, [facility] [place] [facility] [address] [id number], [place] [address]- 2517 May, [facility] [place] [facility] [address] [id number] [place] [address]- 8106 May, [facility] [place] [facility] [address] [id number] [place] [address]- 8589 Jan, [facility] [place] [facility] [address] [id number] [place] [address] Jan, [facility] [place] [facility] [address] [id number] [place] [address]- 6712 Dec, [facility] [place] [facility] [address] [id number] [place] [address]- 5431 Dec, [facility] [place] [facility] [address] [id number] [place] [address]- 6858 Dec, [facility] [place] [facility] [address] [id number], [place] [address]- 7466 Dec, [facility] [place] [facility] [address] [id number] [place] [address]- 0213 Dec, [facility] [place] [facility] [address] [id number] [place] [address]- 9094 Dec, [facility] [place] [facility] [address] [facility] [id number] [place] [address]- 9482 Dec, [facility] [place] [facility] [address], [place] [address]- 74[address] Aug, [facility] [address] [place] [address] [id number] [id number] Apr, [facility] [place] [facility] [address], [place] [address]- 9572 Apr, [facility] [place] [facility] [id number], [place] [address]- 1715 Apr, [facility] [place] [facility] [id number], [place] [address]- 0506 Apr, [facility] [place] [facility] [address] [id number], [place] [address]- 3596 Apr, [facility] [place] [facility] [address] [id number], [place] [address]- 6715 Dec, [facility] [place] [facility] [address] [facility] [id number], [place] [address]- 1661 14 Dec, 2010 [facility] [place] [facility] [address] [id number], [place] [address]- 6871 Dec, [facility] [id number], [place] [address]- 5428 11 Dec, 2010 [facility] [id number], [place] [address]- 7787 19 Feb, 2010 [facility] [address], [place] [address]- 4776 16 Feb, 2010 [facility] [id number], [place] [address]- 4241 Feb, [facility] [id number], [place] [address]- 1013 13 Feb, 2010 [facility] [id number], [place] [address]- 2453 14 Aug, 2009 [facility] [id number], [place] [address]- 0197 16 May, 2009 IMMUNIZATIONS No Known Immunizations SOCIAL HISTORY Never Assessed REASON FOR VISIT Order labs PLAN OF CARE VITAL SIGNS MEDICATIONS Unknown [...] UTI 11/27/15 Hospitalization History Upper abdominal pain, [facility] 06/08/16
--- OUTSIDE RECORDS SUMMARY | 2018-02-16 16:31 | XMS REPORT ---
Author Author ELSA POLK [facility] Address [address] [place] [address] Care Team Providers Care Lap Winder Name Role Phone ELSA POLK Unavailable PROBLEMS Type Condition ICD9-CM Code NRM11-WO Code Onset Dates Condition Status SNOMED Code Problem Gastroesophageal reflux disease with esophagitis K21.0 Active 549580039 Problem Type 2 diabetes mellitus without complications E11.9 Active 420662568 Problem Seasonal allergic rhinitis, unspecified allergic rhinitis trigger J30.2 Active 789962088 Problem Other obesity due to excess calories E66.09 Active 559419515 Problem Body mass index (BMI) of 33.0-33.9 in adult Z68.33 Active 095425395 Problem Acute seasonal allergic rhinitis, unspecified trigger J30.2 Active 723073543 Problem GERD (gastroesophageal reflux disease) K21.9 Active 544586321 Problem Iron deficiency anemia due to chronic blood loss D50.0 Active 308393043 Problem Acute left-sided back pain with sciatica M54.42 Active 865703818 Problem Abnormal mammogram of left breast R92.8 Active 890270383 Problem Type 2 diabetes mellitus with hyperglycemia E11.65 Active 644910651 Problem care home current use of insulin Z79.4 Active 671241148 Problem Type 2 diabetes mellitus without complication E11.9 Active 30861818 Problem Other chronic pain G89.29 Active 30345542 Problem Esophageal spasm K22.4 Active 64548404 Problem Ulcer of esophagus without bleeding K22.10 Active 45815281 ALLERGIES Substance Reaction Event Type Date Status Reglan dizziness Drug Allergy Jun, Active Penicillin V Potassium Unknown Drug Allergy Jun, Active ENCOUNTERS Encounter Location Date Diagnosis [facility] [address] [facility] [id number] [place] [address] Oct, [facility] [address] [facility] [id number] [address] Sep, Acute pain of left knee M25.562 [facility] [address] [address] Sep, Right anterior knee pain M25.561 [place] [address] [address] Sep, Abnormal mammogram of left breast R92.8 [place] [address] [place] [id number] [place] [address]99[address] 49[address] Sep, Abnormal mammogram of left breast R92.8 [place] [address] [place] [id number] [place] [address] 46087- 1477 Aug, [place] [address] [place] [id number] [place] [address] 16242- 9105 Aug, Abnormal mammogram of left breast R92.8 [place] [address] [place] [id number] [place] [address] 28792[address] 2714 Aug, [place] [address] [address] Aug, Encounter for well woman exam with routine gynecological exam Z01.419 ; Screen for STD (sexually transmitted disease) Z11.3 ; Screening breast examination Z12.31 ; Other obesity due to excess calories E66.09 and Body mass index (BMI) of 33.0-33.9 in adult Z68.33 [place] [address] [place] [address]679[address] July, Type 2 diabetes mellitus with hyperglycemia E11.65 and Iron deficiency anemia due to chronic blood loss D50.0 [place] [address] [place] [address] 55252- 5523 16 Jun, 2017 Acute left-sided back pain with sciatica M54.42 ; Type 2 diabetes mellitus without complications E11.9 and care home current use of insulin Z79.4 [facility] [address] [address] Jun, Dysuria R30.0 and Lumbar back pain M54.5 [facility] [address] [place] [id number] [place] [address] 29 Feb, 2017 Acute seasonal allergic rhinitis, unspecified trigger J30.2 [facility] [address] [place] [id number] [place] [address] 12989- 0200 18 Feb, 2017 Acute posthemorrhagic anemia D62 [place] [address] [address] 05 Feb, 2017 Acute posthemorrhagic anemia D62 [place] [address] [address] 04 Feb, 2017 Type 2 diabetes mellitus without complication E11.9 and Dry skin L85.3 [place] [address] [address] Dec, [facility] [place] [address] [address] Nov, Weakness R53.1 and GERD (gastroesophageal reflux disease) K21.9 [place] [address] [place] [id number] [place] [address] 72530- 8774 Nov, [place] [address] [place] [id number] [place] [address]71[address] 1956 Sep, Type 2 diabetes mellitus without complications E11.9 [facility] [place] [address] [place] [id number] [place] [address]408 [address] July, Dysuria R30.0 and Acute cystitis with hematuria N30.01 [facility] [place] [address] [place] [id number] [place] [address] Jun, Seasonal allergic rhinitis, unspecified allergic rhinitis trigger J30.2 [place] [address] [place] [id number] [place] [address] 62781- 1736 Jun, Hiatal hernia K44.9 and Ulcer of esophagus without bleeding K22.10 [place] [address] [address]47[address] Jun, Gastroesophageal reflux disease with esophagitis K21.0 [facility] [address] [id number] Jun, [facility] [address] [address] May, Type 2 diabetes mellitus with hyperglycemia E11.65 and 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.4 [facility] [address] [address] May, Other chronic pain G89.29 and Pain in left hip M25.552 [place] [address] [address]- 7067 13 Apr, 2016 Nausea R11.0 [facility] [address] [address]70[address] 09 Apr, 2016 SOB (shortness of breath) R06.02 ; Coughing R05 and Type 2 diabetes mellitus without complication E11.9 [facility] [address] [address] Apr, Bronchitis J40 [facility] [address] 23986[address] 69[address] Mar, Hiatal hernia K44.9 and Bronchitis J40 [facility] [address] 17483- 9340 Mar, [facility] [address] [address]474[address] 55[address] Mar, [facility] [address] [address] Jan, [facility] [address] 67[address] 8097 Dec, [facility] [address] [address] Dec, Esophageal spasm K22.4 [facility] [address] [place] [address] 73655- 6532 Dec, [facility] [address] [place] [id number] [place] [address]24[address] Dec, Right upper quadrant pain R10.11 and Abdominal pain, unspecified location R10.9 [facility] [address] [place] [id number] [place] [address] 17681 [address]7713 Dec, Right upper quadrant pain R10.11 [place] [address] [place] [id number] [place] [address] 46624[address] 6625 Nov, Type 2 diabetes mellitus without complication E11.9 and Right upper quadrant pain R10.11 [facility] [place] [address] [place] [id number] [place] [address] 00788 [address]22[address] Nov, Dysuria R30.0 and Abdominal pain, unspecified location R10.9 [place] [address] [place] [id number] [place] [address] 67799- 9839 Aug, Chronic gastritis without bleeding, unspecified gastritis type K29.50 ; Dysuria R30.0 and Type 2 diabetes mellitus without complication E11.9 [place] [address] [place] [id number] [place] [address]05[address] Aug, Gastroesophageal reflux disease, esophagitis presence not specified K21.9 and Acute cystitis with hematuria N30.01 [facility] [address] [place] [id number] [place] [address] 43165 [address] Aug, Dysuria R30.0 [place] [address] [place] [id number] [place] [address] 16324- 2072 July, [place] [address] [place] [id number] [place] [address] 22137- 7672 Jun, [place] [address] [place] [id number] [place] [address] 09042- 6663 May, Diabetes type 2, controlled E11.9 and Allergic rhinitis J30.9 [place] [address] [place] [id number] [place] [address] 53182- 6286 Apr, Type 2 diabetes mellitus without complication E11.9 and Cough R05 [facility] [address] [place] [id number] [place] [address] 99925- 7704 Apr, Vertigo R42 and Non-intractable vomiting with nausea, vomiting of unspecified type R11.2 [facility] [address] [place] [id number] [place] [address] 33000 [address]3697 Mar, Acute laryngopharyngitis J06.0 ; Acute diarrhea R19.7 and Acute bacterial sinusitis J01.90 [place] [address] 03407- 9736 Mar, Upper respiratory infection 465.9 [place] [address] 76348- 9436 Dec, Diabetes E11.9 [place] [address] 62086- 5160 Nov, Upper respiratory infection 465.9 [facility] [address] [place] [id number] [place] [address] 70359- 5352 Sep, [facility] [address] [place] [id number] [place] [address] 09211- 5618 Sep, Diabetes 250.00 [place] [address] [place] [id number] [place] [address] 75852- 2237 July, Diabetes mellitus without mention of complication, type II or unspecified type, uncontrolled 250.02 and Cervicalgia 723.1 [facility] [address] [place] [id number] [place] [address] 99440- 4598 July, [facility] [address] 42167- 4660 Jun, [facility] [address] [place] [id number] [place] [address] 14213- 2695 Jun, [facility] [address] [place] [id number] [place] [address] 03514- 9878 May, [facility] [place] [facility] [address] [id number] [place] [address] 5[address] May, [facility] [place] [facility] [address] [id number] [place] [address] Apr, [facility] [place] [facility] [address] [id number] [place] [address] 0256 Apr, [facility] [place] [facility] [address] [id number] [place] [address] Apr, [facility] [place] [facility] [address] [id number] [place] Apr, [facility] [place] [facility] [address] [id number] [place] [address]- 8250 Mar, [facility] [place] [facility] [address] [id number] [place] [address]- 2716 Mar, [facility] [place] [facility] [address] [id number] [place] [address]- 9069 Feb, [facility] [place] [facility] [address] [id number] [place] [address]- 1307 Feb, [facility] [place] [facility] [address] [id number] [place] [address]- 5813 Jan, [facility] [place] [facility] [address] [id number] [place] [address]- 3876 Jan, [facility] [place] [facility] [address] [id number] [place] [address]- 5902 Aug, [facility] [place] [facility] [address] [id number] [place] [address] Aug, [facility] [place] [facility] [address] [id number] [place] July, [facility] [place] [facility] [address] [id number] [place] [address]- 1156 July, [facility] [place] [facility] [address] [id number] [place] [address]- 6264 Nov, [facility] [address] [id number] [place] [address]- 2996 13 Nov, 2012 [facility] [place] [facility] [address] [id number] [place] [address]- 6845 Nov, [facility] [address] [id number] [place] [address]- 2577 Sep, [facility] [address] [id number] [place] [address]- 1049 Aug, [facility] [place] [facility] [address] [id number] [place] [address]- 9845 July, [facility] [place] [address] [id number] [place] [address]- 1220 Jun, [facility] [address] [id number] [place] [address]- 2760 Jun, [facility] [address] [id number] [place] [address]- 9310 Jun, [facility] [address] [id number] [place] [address]- 6140 16 Jun, 2012 [facility] [address] [id number] [place] [address]- 0171 May, [facility] [place] [facility] [address] [id number] [place] [address]- 2382 May, [facility] [place] [facility] [address] [id number] [place] [address]- 0699 Jan, [facility] [place] [facility] [address] [id number] [place] [address]- 1614 Jan, [facility] [place] [facility] [address] [id number] [place] [address]- 2168 30 Dec, 2011 [facility] [place] [facility] [address] [id number] [address]- 5236 Dec, [facility] [place] [facility] [address] [id number] [place] [address]- 6556 Dec, [facility] [place] [facility] [address] [id number] [address] 8456 Dec, [facility] [place] [facility] [address] [facility] [id number] [place] [address]- 4226 Dec, [facility] [place] [facility] [address] [id number] [place] [address]- 8856 Dec, [facility] [place] [facility] [address] [id number] [place] [address]- 6346 Dec, [facility] [place] [facility] [address] [facility] [id number] [place] [address] 1226 Aug, [facility] [address] [id number] [id number] Apr, [facility] [place] [facility] [address] [facility] [id number] [address]- [address]591 Apr, [facility] [place] [facility] [address] [id number] [place] [address]- 3360 Apr, [facility] [place] [facility] [address] [facility] [id number] [place] [address]- 7716 Apr, [facility] [place] [facility] [address] [id number] [address]- 1786 Apr, [facility] [place] [facility] [address] [id number] [place] [address]- 3946 Dec, [facility] [place] [facility] [address] [id number] [place] [address]- 3136 14 Dec, 2010 [facility] [place] [facility] [address] [facility] [id number] [place] [address]- 2326 Dec, [facility] [place] [facility] [address] [facility] [id number] [place] [address]- 8146 Dec, [facility] [place] [facility] [address] [facility] [id number] [place] 92[address] Feb, [facility] [address] [place] [id number] [address]- 7209 Feb, [facility] [address] [place] [id number] [address] 1104 Feb, [facility] [address] [place] [id number] [address] 8750 Feb, [facility] [address] [place] [id number] [address]- 4297 Aug, [facility] [address] [place] [id number] [address]- 0293 May, IMMUNIZATIONS No Known Immunizations SOCIAL HISTORY Never Assessed REASON FOR VISIT UTI symptoms, LLQ back pain and burning on urination since last week, PCP-Talha Mi APRN PLAN OF CARE Activity Details Follow Up prn Reason: VITAL SIGNS Height 63 in 2017-06-17 Weight 182.6 lbs 2017-06-17 Temperature 97.6 degrees Fahrenheit 2017-06-17 Heart Rate 68 bpm 2017-06-17 Respiratory Rate 18 2017-06-17 BMI 32.34 kg/m2 2017-06-17 Blood pressure systolic 122 mmHg 2017-06-17 Blood pressure diastolic 76 mmHg 2017-06-17 MEDICATIONS Medication Instructions Dosage Frequency Start Date End Date Duration Status Acetaminophen 500 MG Orally every 6 hrs 2 capsules as needed 6h Active Ankit Contour Test 1 In Vitro 2 times a day as directed 12h Apr, Active Albuterol Sulfate HFA 108 (90 Base) MCG/ACT Inhalation every 4 hrs 2 puffs as needed 4h Active Metformin HCl 1000 MG Orally Twice a day 1 tablet with meals 12h May, 30 day(s) Active Singulair 10 MG Orally Once a day 1 tablet in the evening 24h May, 30 day(s) Active Zofran 8 MG Orally every 8 hours as needed 1 tablet Nov, 30 day(s) Not-Taking Lantus SoloStar 100 UNIT/ML Subcutaneous Once a day 50 units 24h Active Zyrtec Allergy 10 MG Orally Once a day 1 tablet 24h Active Baclofen 20 MG Orally every 8 hrs 1 tablet with food or milk 8h Jun, Jun, 7 days Active PredniSONE 20 MG Orally Once a day 2 tablet 24h Jun, Jun, 5 days Active RESULTS Name Result Date Reference Range UA LONG DIP (IN HOUSE) 2017-06-17 Lot # [id number] Exp date 12/2017 Clarity slightly cloudy Color light yellow Odor no GLU Trace RADHA negative KET Negative SG 1.015 BLO Negative pH 6.0 Protein Negative URO 0.2 NIT Negative JENNA Negative Lot # [id number] Exp date 06/26 PROCEDURES Procedure Date Ordered Result Body Site URINALYSIS, AUTO, W/O SCOPE June 17, 2017 INSTRUCTIONS MEDICATIONS ADMINISTERED No Known Medications [...]
--- OUTSIDE RECORDS SUMMARY | 2018-02-16 16:31 | XMS REPORT ---
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 Name Role Phone LEIGHANN GARCIAICE Unavailable PROBLEMS Type Condition ICD9-CM Code BXJ78-ZS Code Onset Dates Condition Status SNOMED Code Problem Esophageal spasm K22.4 Active 26259488 Problem [facility] current use of insulin Z79.4 Active 475099283 Problem Type 2 diabetes mellitus with hyperglycemia E11.65 Active 431152314 Problem Type 2 diabetes mellitus without complication E11.9 Active 24319180 Problem GERD (gastroesophageal reflux disease) K21.9 Active 127317083 Problem Type 2 diabetes mellitus without complications E11.9 Active 199574422 Problem Ulcer of esophagus without bleeding K22.10 Active 02964776 Problem Other chronic pain G89.29 Active 85891090 Problem Seasonal allergic rhinitis, unspecified allergic rhinitis trigger J30.2 Active 609074139 Problem Gastroesophageal reflux disease with esophagitis K21.0 Active 995428560 ALLERGIES Substance Reaction Event Type Date Status Reglan dizziness Drug Allergy July, Active Penicillin V Potassium Unknown Drug Allergy July, Active SOCIAL HISTORY Never Assessed PLAN OF CARE Activity Details Follow Up prn Reason: VITAL SIGNS Height 63 in 2016-07-17 Weight 196.4 lbs 2016-07-17 Temperature 98.1 degrees Fahrenheit 2016-07-17 Heart Rate 78 bpm 2016-07-17 Respiratory Rate 18 2016-07-17 BMI 34.79 kg/m2 2016-07-17 Blood pressure systolic 124 mmHg 2016-07-17 Blood pressure diastolic 82 mmHg 2016-07-17 MEDICATIONS Medication Instructions Dosage Frequency Start Date End Date Duration Status Protonix 40 mg Orally 2 times a day 1 tablet 12h 30 days Active Lantus SoloStar 100 UNIT/ML Subcutaneous Once a day 56 units 24h Active Metformin HCl 1000 MG Orally Twice a day 1 tablet with meals 12h May, 30 day(s) Active Acetaminophen 500 MG Orally every 6 hrs 2 capsules as needed 6h Active Zyrtec Allergy 10 MG Orally Once a day 1 tablet 24h Active Zofran 8 MG Orally every 8 hours as needed 1 tablet Nov, 30 day(s) Active Carafate 1 GM Orally Twice a day 1 tablet on an empty stomach 12h Active Bactrim DS 800-160 MG Orally Twice a day 1 tablet 12h July,July 3 days Active Hyoscyamine Sulfate 0.125 MG Orally every 4 hrs 1 tablet before meals as needed 4h Active Guaifenesin 400 mg Orally 2 times a day 1 tablet as needed 12h Active RESULTS Name Result Date Reference Range UA LONG DIP (IN HOUSE) 2016-07-17 Lot # [id number] Exp date 07/08/17 Clarity clear Color yellow Odor no GLU 2+ RADHA negative KET trace SG >=1.030 BLO 1+ pH 5.5 Protein negative URO 0.2 NIT negative JENNA trace Lot # [id number] Exp date 04/2017 PROCEDURES Procedure Date Ordered Result Body Site URINALYSIS, AUTO, W/O SCOPE July 17, 2016 IMMUNIZATIONS No Known Immunizations MEDICAL (GENERAL) [...]
--- OUTSIDE RECORDS SUMMARY | 2018-02-16 16:32 | XMS REPORT ---
Author Author CHERRY MARTIN Organization [facility] Address [address] [place] [address] Care Team Providers Care Laboratory Tech Name Role Phone CHERRY MARTIN Unavailable PROBLEMS Type Condition ICD9-CM Code WIT70-LN Code Onset Dates Condition Status SNOMED Code Problem Gastroesophageal reflux disease with esophagitis K21.0 Active 889315498 Problem Type 2 diabetes mellitus without complications E11.9 Active 805543187 Problem Seasonal allergic rhinitis, unspecified allergic rhinitis trigger J30.2 Active 000484489 Problem Other obesity due to excess calories E66.09 Active 572817248 Problem Body mass index (BMI) of 33.0-33.9 in adult Z68.33 Active 181215820 Problem Acute seasonal allergic rhinitis, unspecified trigger J30.2 Active 318677518 Problem GERD (gastroesophageal reflux disease) K21.9 Active 155520459 Problem Iron deficiency anemia due to chronic blood loss D50.0 Active 857913492 Problem Acute left-sided back pain with sciatica M54.42 Active 460546717 Problem Abnormal mammogram of left breast R92.8 Active 166750252 Problem Type 2 diabetes mellitus with hyperglycemia E11.65 Active 019249589 Problem 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 Active 856236457 Problem Type 2 diabetes mellitus without complication E11.9 Active 71588777 Problem Other chronic pain G89.29 Active 19129162 Problem Esophageal spasm K22.4 Active 89844694 Problem Ulcer of esophagus without bleeding K22.10 Active 67074344 ALLERGIES No Information ENCOUNTERS Encounter Location Date Diagnosis [facility] [address] [facility] [id number], [place] [address] Aug, [facility] [address] [facility] [id number], [place] [address] Aug, Encounter for well woman exam with routine gynecological exam Z01.419 ; Screen for STD (sexually transmitted disease) Z11.3 ; Screening breast examination Z12.31 ; Other obesity due to excess calories E66.09 and Body mass index (BMI) of 33.0-33.9 in adult Z68.[address] [address] 14 Jul, 2017 Type 2 diabetes mellitus with hyperglycemia E11.65 and Iron deficiency anemia due to chronic blood loss D50.[address] [address] 16 Jun, 2017 Acute left-sided back pain with sciatica M54.42 ; Type 2 diabetes mellitus without complications E11.9 and alf current use of insulin Z79.4 [facility] [address] [address] 09 Jun, 2017 Dysuria R30.0 and Lumbar back pain M54.5 [facility] [address] [address] Feb, Acute seasonal allergic rhinitis, unspecified trigger J30.2 [place] [address] [address] Feb, Acute posthemorrhagic anemia D62 [address] [address] 05 Feb, 2017 Acute posthemorrhagic anemia D62 [place] [address] [address] Feb, Type 2 diabetes mellitus without complication E11.9 and Dry skin L85.3 [place] [address] [address] Dec, [facility] [place] [address] [address] 18 Nov, 2016 Weakness R53.1 and GERD (gastroesophageal reflux disease) K21.[address] [address] Nov, [place] [address] [place] [id number] [place] [address] Sep, Type 2 diabetes mellitus without complications E11.9 [facility] [address] [address] July, Dysuria R30.0 and Acute cystitis with hematuria N30.01 [facility] [address] [address] Jun, Seasonal allergic rhinitis, unspecified allergic rhinitis trigger J30.2 [place] [address] [address] Jun, Hiatal hernia K44.9 and Ulcer of esophagus without bleeding K22.10 [place] [address] [address] Jun, Gastroesophageal reflux disease with esophagitis K21.0 [facility] [address] [id number] Jun, [place] [address] [address] May, Type 2 diabetes mellitus with hyperglycemia E11.65 and alf current use of insulin Z79.4 [place] [address] [address] May, Other chronic pain G89.29 and Pain in left hip M25.552 [place] [address] [address] 13 Apr, 2016 Nausea R11.0 [place] [address] [address] 09 Apr, 2016 SOB (shortness of breath) R06.02 ; Coughing R05 and Type 2 diabetes mellitus without complication E11.9 [facility] [address] [place] [id number] [place] [address] Apr, Bronchitis J40 [place] [address] [address] Mar, Hiatal hernia K44.9 and Bronchitis J40 [facility] [address] [address] Mar, [facility] [address] [address] Mar, [place] [address] [address] Jan, [facility] [address] [address] Dec, [place] [address] [address] Dec, Esophageal spasm K22.4 [place] [address] [address] Dec, [facility] [place] [address] [address] Dec, Right upper quadrant pain R10.11 and Abdominal pain, unspecified location R10.9 [facility] [place] [address] [address] Dec, Right upper quadrant pain R10.11 [place] [address] [address] Nov, Type 2 diabetes mellitus without complication E11.9 and Right upper quadrant pain R10.11 [facility] [place] [address] [place] [id number] [place] [address] Nov, Dysuria R30.0 and Abdominal pain, unspecified location R10.9 [place] [address] [address] Aug, Chronic gastritis without bleeding, unspecified gastritis type K29.50 ; Dysuria R30.0 and Type 2 diabetes mellitus without complication E11.9 [place] [address] [address] 10 Aug, 2015 Gastroesophageal reflux disease, esophagitis presence not specified K21.9 and Acute cystitis with hematuria N30.01 [facility] [address] [place] [id number] [place] [address] 07 Aug, 2015 Dysuria R30.0 [facility] [address] [place] [id number] [place] [address] July, [facility] [address] [address] Jun, [place] [address] [address] May, Diabetes type 2, controlled E11.9 and Allergic rhinitis J30.9 [place] [address] [place] [id number] [place] [address] Apr, Type 2 diabetes mellitus without complication E11.9 and Cough R05 [place] [address] [place] [id number] [place] [address] Apr, Vertigo R42 and Non-intractable vomiting with nausea, vomiting of unspecified type R11.2 [facility] [address] [place] [id number] [place] [address] Mar, Acute laryngopharyngitis J06.0 ; Acute diarrhea R19.7 and Acute bacterial sinusitis J01.90 [place] [address] [place] [id number] [place] [address]67 Mar, Upper respiratory infection 465.9 [place] [address] [place] [id number] [place] [address] Dec, Diabetes E11.9 [place] [address] [place] [id number] [place] [address] 10 Nov, 2014 Upper respiratory infection 465.9 [place] [address] [place] [id number] [place] [address] Sep, [place] [address] [id number] [address] Sep, Diabetes 250.00 [facility] [address] [place] [address] July, Diabetes mellitus without mention of complication, type II or unspecified type, uncontrolled 250.02 and Cervicalgia 723.1 [facility] [address], [place] [address] July, [facility] [address] [id number], [place] [address] Jun, [facility] [address] [place] [id number] [place] [address]- [address] Jun, [facility] [address] [place] [id number] [place] [address] May, [facility] [address] [place] [address] May, [facility] [address], [place] [address] Apr, [facility] [address], [place] [address] Apr, [facility] [address], [place] [address] Apr, [facility] [address], [place] [address] Apr, [facility] [address], [place] [address] Mar, [facility] [address], [place] [address] Mar, [facility] [address], [place] [address] Feb, [facility] [address], [place] [address] Feb, [facility] [address] [id number] [place] [address] Jan, [facility] [place] [facility] [address] [id number] [place] [address] 6263 Jan, [facility] [place] [facility] [address] [id number] [place] [address] 18[address] 16 Aug, 2013 [facility] [place] [facility] [address] [id number] [place] [address]- 67[address] Aug, [facility] [place] [facility] [address] [id number] [place] [address]- 6[address] July, [facility] [place] [facility] [address] [id number] [place] [address]- 8[address] July, [facility] [place] [facility] [address] [id number] [place] [address]- 98[address] Nov, [facility] [place] [facility] [address] [id number] [place] [address]- 2482 Nov, [facility] [place] [facility] [address] [id number] [place] [address]- 1038 Nov, [facility] [place] [facility] [address] [id number], [place] [address] Sep, [facility] [place] [facility] [address] [id number] [place] [address]- [address] Aug, [facility] [place] [facility] [address] [id number], [place] [address] July, [facility] [place] [facility] [address] [id number] [place] [address]- 73[address] Jun, [facility] [place] [facility] [address] [id number] [place] [address]- 4278 Jun, [facility] [place] [facility] [address] [id number], [place] [address]- [address] Jun, [facility] [place] [facility] [address] [id number], [place] [address] Jun, [facility] [place] [facility] [address] [facility] [id number] [place] [address]- 9291 May, [facility] [place] [facility] [address] [facility] [id number], [place] [address]- [address] May, [facility] [place] [facility] [address] [place] [id number] [place] [address] Jan, [facility] [place] [facility] [address] [id number] [place] [address]- 4058 Jan, [facility] [place] [facility] [address] [id number] [place] [address]- 7047 Dec, [facility] [place] [facility] [address] [place] [id number] [address] Dec, [facility] [place] [facility] [address] [place] [id number], [place] [address]- [address] Dec, [facility] [place] [facility] [address] [place] [id number] [place] [address]- 1735 Dec, [facility] [place] [facility] [address] [place] [id number] [place] [address]- 8567 Dec, [facility] [place] [facility] [address] [place] [id number], [place] [address]- [address] Dec, [facility] [place] [facility] [address] [place] [id number], [place] [address]- [address] Dec, [facility] [place] [facility] [address] [place] [id number], [place] [address]- [address] Aug, [facility] [address] [id number][place] [id number] Apr, [facility] [place] [facility] [address] [place] [id number], [place] [address]- 2416 Apr, [facility] [place] [facility] [address] [place] [id number], [place] [address]- 8[address] Apr, [facility] [place] [facility] [address] [place] [id number], [place] [address]- 1487 17 Apr, 2011 [facility] [address], [place] [address]- [address] Apr, [facility] [address], [place] [address]- [address] 17 Dec, 2010 [facility] [address], [place] [address]- 67[address] 14 Dec, 2010 [facility] [address], [place] [address]- [address] Dec, [facility] [address] [address] Dec, [facility] [address] [address] 19 Feb, 2010 [facility] [address] [address] 16 Feb, 2010 [facility] [address] [address] 13 Feb, 2010 [facility] [address] [address] 13 Feb, 2010 [facility] [address] [id number] [address] 14 Aug, 2009 [facility] [address] [place] [id number], [place] [address]- [address]138 16 May, 2009 IMMUNIZATIONS No Known Immunizations SOCIAL HISTORY Never Assessed REASON FOR VISIT Lab (walk-in) PLAN OF CARE VITAL SIGNS MEDICATIONS Unknown Medications RESULTS Name Result Date Reference Range CBC 2017-02-25 WHITE BLOOD CELL COUNT 6.1 3.8-10.8 RED BLOOD CELL COUNT 3.83 3.80-5.10 HEMOGLOBIN 9.8 11.7-15.5 HEMATOCRIT 32.6 35.0-45.0 MCV 85.1 80.0-100.0 MCH 25.6 27.0-33.0 MCHC 30.1 32.0-36.0 RDW 16.8 11.0-15.0 PLATELET COUNT 474 140-400 MPV 9.9 7.5-12.5 ABSOLUTE NEUTROPHILS 3361 [id number] ABSOLUTE LYMPHOCYTES 2159 850-3900 ABSOLUTE MONOCYTES 464 200-950 ABSOLUTE EOSINOPHILS 73 15-500 ABSOLUTE BASOPHILS 43 0-200 NEUTROPHILS 55.1 LYMPHOCYTES 35.4 MONOCYTES 7.6 EOSINOPHILS 1.2 BASOPHILS 0.7 PROCEDURES Procedure Date Ordered Result Body Site COMPLETE CBC W/AUTO DIFF WBC Feb 25, 2017 VENIPUNCT, ROUTINE* Feb 25, 2017 INSTRUCTIONS MEDICATIONS ADMINISTERED No Known Medications [...]
--- OUTSIDE RECORDS SUMMARY | 2018-02-16 16:32 | XMS REPORT ---
Author Author ELSA POLK [facility] Address [address] [place] [address] Care Team Providers Care Directional Bore Operator Name Role Phone ELSA POLK Unavailable PROBLEMS Type Condition ICD9-CM Code TOT41-HM Code Onset Dates Condition Status SNOMED Code Problem Gastroesophageal reflux disease with esophagitis K21.0 Active 887157584 Problem Type 2 diabetes mellitus without complications E11.9 Active 476847054 Problem Seasonal allergic rhinitis, unspecified allergic rhinitis trigger J30.2 Active 063500119 Problem Other obesity due to excess calories E66.09 Active 853624974 Problem Body mass index (BMI) of 33.0-33.9 in adult Z68.33 Active 459901036 Problem Acute seasonal allergic rhinitis, unspecified trigger J30.2 Active 818304588 Problem GERD (gastroesophageal reflux disease) K21.9 Active 305872916 Problem Iron deficiency anemia due to chronic blood loss D50.0 Active 323333745 Problem Acute left-sided back pain with sciatica M54.42 Active 436231107 Problem Abnormal mammogram of left breast R92.8 Active 381862686 Problem Type 2 diabetes mellitus with hyperglycemia E11.65 Active 790773376 Problem 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 Active 723445785 Problem Type 2 diabetes mellitus without complication E11.9 Active 75792406 Problem Other chronic pain G89.29 Active 67024395 Problem Esophageal spasm K22.4 Active 66805235 Problem Ulcer of esophagus without bleeding K22.10 Active 14416661 ALLERGIES Substance Reaction Event Type Date Status Reglan dizziness Drug Allergy Feb, Active Penicillin V Potassium Unknown Drug Allergy Feb, Active ENCOUNTERS Encounter Location Date Diagnosis [facility] [place] [address] [facility] [id number] [address] 13 Aug, 2017 [facility] [place] [address] [facility] [id number], [place] [address] Aug, Abnormal mammogram of left breast R92.8 [place] [address] [place] [id number] [place] [address] 08 Aug, 2017 [place] [address] [address] Aug, Encounter for well woman exam with routine gynecological exam Z01.419 ; Screen for STD (sexually transmitted disease) Z11.3 ; Screening breast examination Z12.31 ; Other obesity due to excess calories E66.09 and Body mass index (BMI) of 33.0-33.9 in adult Z68.33 [place] [address] [address] 14 Jul, 2017 Type 2 diabetes mellitus with hyperglycemia E11.65 and Iron deficiency anemia due to chronic blood loss D50.0 [place] [address] [address] 16 Jun, 2017 Acute left-sided back pain with sciatica M54.42 ; Type 2 diabetes mellitus without complications E11.9 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9 and Dry skin L85.3 [place] [address] [address] Dec, [facility] [address] [address] 18 Nov, 2016 Weakness R53.1 and GERD (gastroesophageal reflux disease) K21.9 [place] [address] [address] Nov, [place] [address] [address] Sep, Type 2 diabetes mellitus without complications E11.9 [facility] [place] [address] [address] July, Dysuria R30.0 and Acute cystitis with hematuria N30.01 [facility] [place] [address] [address] Jun, Seasonal allergic rhinitis, unspecified allergic rhinitis trigger J30.2 [place] [address] [address] Jun, Hiatal hernia K44.9 and Ulcer of esophagus without bleeding K22.10 [place] [address] [address] Jun, Gastroesophageal reflux disease with esophagitis K21.0 [place] [address] [id number] Jun, [place] [address] [address] May, Type 2 diabetes mellitus with hyperglycemia E11.65 and 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 [address] [place] [id number] [place] [address] Apr, Bronchitis J40 [facility] [place] [address] [address] Mar, Hiatal hernia K44.9 and Bronchitis J40 [facility] [place] [address] [address] Mar, [facility] [place] [address] [address] Mar, [facility] [place] [address] [place] [id number] [place] [address] 8[address]- [address] Jan, [facility] [place] [address] [place] [id number] [place] [address] Dec, [facility] [place] [address] [place] [id number] [place] [address]- [address] Dec, Esophageal spasm K22.4 [facility] [place] [address] [place] [id number] [place] [address] Dec, [facility] [address] [place] [id number] [place] [address] Dec, Right upper quadrant pain R10.11 and Abdominal pain, unspecified location R10.9 [facility] [address] [place] [id number] [place] [address] Dec, Right upper quadrant pain R10.11 [facility] [place] [address] [place] [id number] [place] [address] Nov, Type 2 diabetes mellitus without complication E11.9 and Right upper quadrant pain R10.11 [facility] [address] [place] [id number] [place] [address] Nov, Dysuria R30.0 and Abdominal pain, unspecified location R10.9 [place] [address] [address] Aug, Chronic gastritis without bleeding, unspecified gastritis type K29.50 ; Dysuria R30.0 and Type 2 diabetes mellitus without complication E11.9 [place] [address] [address] Aug, Gastroesophageal reflux disease, esophagitis presence not specified K21.9 and Acute cystitis with hematuria N30.01 [facility] [place] [address] [address] Aug, Dysuria R30.0 [place] [address] [address] July, [place] [address] [address] Jun, [place] [address] [address] May, Diabetes type 2, controlled E11.9 and Allergic rhinitis J30.9 [place] [address] [address] Apr, Type 2 diabetes mellitus without complication E11.9 and Cough R05 [place] [address] [address] Apr, Vertigo R42 and Non-intractable vomiting with nausea, vomiting of unspecified type R11.2 [facility] [address] [address] Mar, Acute laryngopharyngitis J06.0 ; Acute diarrhea R19.7 and Acute bacterial sinusitis J01.90 [place] [address] [address]- [address] Mar, Upper respiratory infection 465.9 [place] [address] [place] [address] 14 Dec, 2014 Diabetes E11.9 [facility] [place] [address] [place] [id number] [place] [address]30[address] 10 Nov, 2014 Upper respiratory infection 465.9 [facility] [place] [address] [place] [id number] [place] [address] 25368- 8[address] Sep, [facility] [place] [address] [place] [id number] [place] [address] 6[address]61- 0680 Sep, Diabetes 250.00 [facility] [place] [address] [place] [id number] [place] [address] 251459- 6776 July, Diabetes mellitus without mention of complication, type II or unspecified type, uncontrolled 250.02 and Cervicalgia 723.1 [facility] [place] [address] [place] [id number] [place] [address] 36[address]- 7716 July, [facility] [place] [address] [place] [id number] [place] [address] 22500- 0870 Jun, [facility] [place] [address] [place] [id number] [place] [address] 73863- 4520 Jun, [facility] [place] [address] [place] [id number] [place] [address] 60071- 9843 May, [facility] [place] [id number] [place] [address] 13523- 3206 May, [facility] [place] [address] [place] [id number] [place] [address] 17106- 4586 Apr, [facility] [place] [id number] [place] [address] 43297- 2214 Apr, [facility] [place] [address] [place] [id number] [place] [address] 83444- 2710 Apr, [facility] [place] [id number] [place] [address] 31761- 9686 Apr, [facility] [address] [place] [id number] [place] [address] 08417- 3882 Mar, [facility] [place] [facility] [address] [id number] [place] [address]- 94[address] Mar, [facility] [place] [facility] [address] [id number] [place] [address]- 0017 Feb, [facility] [place] [facility] [address] [id number] [place] [address] Feb, [facility] [place] [facility] [address] [id number] [place] [address]- 7865 Jan, [facility] [place] [facility] [address] [id number] [place] [address]- 1335 Jan, [facility] [place] [facility] [address] [id number] [place] [address]- 5645 Aug, [facility] [place] [facility] [address] [id number] [place] [address]- 7665 Aug, [facility] [place] [facility] [address] [id number] [place] [address]- 3847 July, [facility] [place] [facility] [address] [id number] [place] [address]- 3403 July, [facility] [place] [facility] [address] [id number] [place] [address]- 7235 Nov, [facility] [place] [facility] [address] [id number] [place] [address]- 5646 Nov, [facility] [place] [facility] [address] [id number] [place] [address]- 0839 Nov, [facility] [place] [facility] [address] [id number] [place] [address]- 3284 Sep, [facility] [place] [facility] [address] [id number] [place] [address]161 Aug, [facility] [place] [facility] [address] [id number] [place] [address]- 1379 July, [facility] [place] [facility] [address] [id number] [place] [address]- 7069 29 Jun, 2012 [facility] [address] [id number] [place] [address]- 6203 29 Jun, 2012 [facility] [place] [facility] [address] [id number] [place] [address]- 1686 26 Jun, 2012 [facility] [address] [id number] [place] [address]- 8983 16 Jun, 2012 [facility] [place] [facility] [address] [id number] [place] [address]- 7214 15 May, 2012 [facility] [address] [id number] [place] [address]- 0088 May, [facility] [place] [facility] [address] [id number] [place] [address]- 9194 Jan, [facility] [place] [facility] [address] [id number] [place] [address]- 6700 Jan, [facility] [address] [id number] [place] [address]- 6388 Dec, [facility] [place] [facility] [address] [id number] [place] [address]- 3329 Dec, [facility] [address] [facility] [id number] [place] [address]- 3274 Dec, [facility] [place] [facility] [address] [id number] [place] [address]- 9233 Dec, [facility] [place] [facility] [address] [id number] [place] [address]- 7708 Dec, [facility] [place] [facility] [address] [id number] [place] [address]- 2988 Dec, [facility] [place] [facility] [address] [facility] [id number] [place] [address]- 7447 Dec, [facility] [place] [facility] [address] [id number] [place] [address]- 0376 Aug, [facility] [address] [facility] [id number] [id number] Apr, [facility] [address] [address] Apr, [facility] [address] [facility] [id number], [place] [address]- 6[address] Apr, [facility] [address], [place] [address]- 6[address] Apr, [facility] [address] [facility] [id number], [place] [address]- 0366 Apr, [facility] [address], [place] [address]- 8[address] Dec, [facility] [place] [facility] [address], [place] [address]- 6536 Dec, [facility] [address], [place] [address]- 1660 Dec, [facility] [address] [id number] [address]- 3049 Dec, [facility] [address] [address] Feb, [facility] [place] [facility] [address] [id number] [address]- 9436 16 Feb, 2010 [facility] [place] [facility] [address] [id number], [place] [address]- 8026 Feb, [facility] [address] [id number], [place] [address]- 8316 Feb, [facility] [place] [facility] [address] [id number], [place] [address]- 6726 Aug, [facility] [address] [id number] [address]- 3256 May, IMMUNIZATIONS Vaccine Route Administration Date Status DEXAMETHASONE 4MG/ML (PER 1 MG) IM Intramuscular Mar 08, 2017 Administered DEPO MEDROL 40 MG/ML IM Intramuscular Mar 08, 2017 Administered SOCIAL HISTORY Never Assessed REASON FOR VISIT cough, congestion, thinks its allergies. been going on for a week. [email or web address] PLAN OF CARE Activity Details Follow Up prn Reason: VITAL SIGNS Height 63 in 2017-03-08 Weight 173.4 lbs 2017-03-08 Temperature 97.8 degrees Fahrenheit 2017-03-08 Heart Rate 70 bpm 2017-03-08 Respiratory Rate 20 2017-03-08 BMI 30.71 kg/m2 2017-03-08 Blood pressure systolic 126 mmHg 2017-03-08 Blood pressure diastolic 82 mmHg 2017-03-08 MEDICATIONS Medication Instructions Dosage Frequency Start Date End Date Duration Status Lantus SoloStar 100 UNIT/ML Subcutaneous Once a day 50 units 24h Active Metformin HCl 1000 MG Orally Twice a day 1 tablet with meals 12h May, 30 day(s) Active Ankit Contour Test 1 In Vitro 2 times a day as directed 12h Apr, Active Zofran 8 MG Orally every 8 hours as needed 1 tablet Nov, 30 day(s) Not-Taking Albuterol Sulfate HFA 108 (90 Base) MCG/ACT Inhalation every 4 hrs 2 puffs as needed 4h Active Singulair 10 MG Orally Once a day 1 tablet in the evening 24h May, 30 day(s) Active Zyrtec Allergy 10 MG Orally Once a day 1 tablet 24h Active Acetaminophen 500 MG Orally every 6 hrs 2 capsules as needed 6h Active RESULTS No Results PROCEDURES Procedure Date Ordered Result Body Site DEPO MEDROL 40 MG/ML Mar 08, 2017 THER/PROPH/DIAG INJ, SC/IM Mar 08, 2017 DEXAMETHASONE 4MG/ML (PER 1 MG) Mar 08, 2017 INSTRUCTIONS MEDICATIONS ADMINISTERED No Known Medications [...]
--- OUTSIDE RECORDS SUMMARY | 2018-02-16 16:33 | XMS REPORT ---
Author Author CHERRY MARTIN Organization [facility] Address [address] [place] [address] Care Team Providers Care Hot Wort Settler Name Role Phone CHERRY MARTIN Unavailable PROBLEMS Type Condition ICD9-CM Code IBY01-XV Code Onset Dates Condition Status SNOMED Code Problem Gastroesophageal reflux disease with esophagitis K21.0 Active 346983396 Problem Type 2 diabetes mellitus without complications E11.9 Active 166473871 Problem Seasonal allergic rhinitis, unspecified allergic rhinitis trigger J30.2 Active 205710101 Problem Other obesity due to excess calories E66.09 Active 085880343 Problem Body mass index (BMI) of 33.0-33.9 in adult Z68.33 Active 640197869 Problem Acute seasonal allergic rhinitis, unspecified trigger J30.2 Active 615305936 Problem GERD (gastroesophageal reflux disease) K21.9 Active 396813235 Problem Iron deficiency anemia due to chronic blood loss D50.0 Active 093122972 Problem Acute left-sided back pain with sciatica M54.42 Active 936011467 Problem Type 2 diabetes mellitus with hyperglycemia E11.65 Active 928200290 Problem 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 [id number] [address] Aug, 2018 Encounter for well woman exam with routine gynecological exam Z01.419 ; Screen for STD (sexually transmitted disease) Z11.3 ; Screening breast examination Z12.31 ; Other obesity due to excess calories E66.09 and Body mass index (BMI) of 33.0-33.9 in adult Z68.33 [facility] [address] [place] [id number] [place] [address]- [address]76 14 Jul, 2017 Type 2 diabetes mellitus with hyperglycemia E11.65 and Iron deficiency anemia due to chronic blood loss D50.0 [place] [address] [address] 16 Jun, 2017 Acute left-sided back pain with sciatica M54.42 ; Type 2 diabetes mellitus without complications E11.9 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 [facility] [address] [address] 09 Jun, 2017 Dysuria R30.0 and Lumbar back pain M54.5 [facility] [place] [address] [address] 29 Feb, 2017 Acute seasonal allergic rhinitis, unspecified trigger J30.2 [place] [address] [address] Feb, Acute posthemorrhagic anemia D62 [place] [address] [address] 05 Feb, 2017 Acute posthemorrhagic anemia D62 [place] [address] [address] 04 Feb, 2017 Type 2 diabetes mellitus without complication E11.9 and Dry skin L85.3 [place] [address] [address] Dec, [facility] [place] [address] [address] 18 Nov, 2016 Weakness R53.1 and GERD (gastroesophageal reflux disease) K21.9 [place] [address] [address] 18 Nov, 2016 [place] [address] [address] Sep, Type 2 diabetes mellitus without complications E11.9 [facility] [place] [address] [address] July, Dysuria R30.0 and Acute cystitis with hematuria N30.01 [facility] [address] [address] Jun, Seasonal allergic rhinitis, unspecified allergic rhinitis trigger J30.2 [place] [address] [address] Jun, Hiatal hernia K44.9 and Ulcer of esophagus without bleeding K22.10 [place] [address] [address] 07 Jun, 2016 Gastroesophageal reflux disease with esophagitis K21.0 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 [place] [address] [address] May, Other chronic pain G89.29 and Pain in left hip M25.552 [place] [address] [address] 13 Apr, 2016 Nausea R11.0 [place] [address] [address] 09 Apr, 2016 SOB (shortness of breath) R06.02 ; Coughing R05 and Type 2 diabetes mellitus without complication E11.9 [facility] [address] [address] Apr, Bronchitis J40 [place] [address] [address] Mar, Hiatal hernia K44.9 and Bronchitis J40 [place] [address] [address] Mar, [facility] [address], [place] [address] Mar, [facility] [address] [place] [address]- [address] Jan, [facility] [address] [place] [id number] [place] [address]- 2857 Dec, [place] [address] [place] [id number] [place] [address] 96671- 3484 Dec, Esophageal spasm K22.4 [place] [address] [place] [id number] [place] [address]406- [address] Dec, [facility] [place] [address] [place] [id number] [place] [address] Dec, Right upper quadrant pain R10.11 and Abdominal pain, unspecified location R10.9 [facility] [place] [id number] [place] [id number] [place] [address]8576 Dec, Right upper quadrant pain R10.11 [place] [address] [place] [id number] [place] [address]36- 69[address] Nov, Type 2 diabetes mellitus without complication E11.9 and Right upper quadrant pain R10.11 [facility] [place] [address] [place] [address]36 Nov, Dysuria R30.0 and Abdominal pain, unspecified location R10.9 [facility] [address] [place] [id number] [place] [address]75- 7248 24 Aug, 2015 Chronic gastritis without bleeding, unspecified gastritis type K29.50 ; Dysuria R30.0 and Type 2 diabetes mellitus without complication E11.9 [place] [address] [place] [address]- [address] Aug, Gastroesophageal reflux disease, esophagitis presence not specified K21.9 and Acute cystitis with hematuria N30.01 [facility] [address] [place] [id number] [place] [address]172 07 Aug, 2015 Dysuria R30.0 [facility] [address] [place] [id number] [place] [address] 88546- 0183 July, [facility] [address] [place] [id number] [place] [address] 98149- 0456 Jun, [facility] [address] [address] May, Diabetes type 2, controlled E11.9 and Allergic rhinitis J30.9 [facility] [address] [place] [id number] [place] [address]98- [address] Apr, Type 2 diabetes mellitus without complication E11.9 and Cough R05 [place] [address] [place] [id number] [place] [address] 46143- 3770 Apr, Vertigo R42 and Non-intractable vomiting with nausea, vomiting of unspecified type R11.2 [facility] [address] [place] [id number] [place] [address]687 -0916 Mar, Acute laryngopharyngitis J06.0 ; Acute diarrhea R19.7 and Acute bacterial sinusitis J01.90 [facility] [address] [place] [id number] [place] [address] 05700- 9341 Mar, Upper respiratory infection 465.9 [place] [address] [place] [id number] [place] [address] 29587- 1391 14 Dec, 2014 Diabetes E11.9 [place] [address] [place] [id number] [place] [address]50- 7046 10 Nov, 2014 Upper respiratory infection 465.9 [place] [address] [place] [id number] [place] [address] 33472- 4914 24 Sep, 2014 [facility] [address] [place] [id number] [place] [address] 93334- 5650 Sep, Diabetes 250.00 [place] [address] 8[address]96- 1198 July, Diabetes mellitus without mention of complication, type II or unspecified type, uncontrolled 250.02 and Cervicalgia 723.1 [facility] [address] [place] [id number] [place] [address] 90056- 5016 July, [facility] [address] [place] [id number] [place] [address] 29400- 4950 Jun, [facility] [address] [place] [id number] [place] [address] 80020- 1202 Jun, [facility] [address] [place] [id number] [place] [address] 84725- 0211 May, [facility] [address] [place] [id number] [place] [address] 88930- 7446 May, [facility] [address] [place] [id number] [place] [address] 76014- 8780 Apr, [facility] [address] [place] [id number] [place] [address] 02328- 3398 Apr, [facility] [address] [place] [address] 66250- 1782 Apr, [facility] [address] [place] [address] 165237- 5425 Apr, [facility] [address], [place] [address] Mar, [facility] [address] [address] Mar, [facility] [address] [address] Feb, [facility] [address], [place] [address]- 1316 Feb, [facility] [address], [place] [address] 1547 Jan, [facility] [address] [place] [id number] [address]- 3845 Jan, [facility] [address] [id number] [place] [address]- 9673 Aug, [facility] [place] [facility] [address] [id number] [place] [address]- 9820 Aug, [facility] [address] [id number] [place] [address]- 9428 July, [facility] [place] [facility] [address] [id number] [place] [address]- 5325 July, [facility] [address] [id number] [place] [address]- 8536 Nov, [facility] [place] [facility] [address] [id number] [place] [address]- 6700 Nov, [facility] [address] [id number] [place] [address]- 3006 Nov, [facility] [place] [facility] [address] [id number] [place] [address]- 9655 Sep, [facility] [address] [id number] [place] [address]- 0984 Aug, [facility] [address] [id number] [place] [address]- 6118 July, [facility] [address] [id number] [place] [address]- 6220 Jun, [facility] [place] [facility] [address] [id number] [place] [address]- 0358 Jun, [facility] [place] [facility] [address] [id number] [place] [address]- 2439 Jun, [facility] [place] [facility] [address] [id number] [place] [address]- 6168 Jun, [facility] [place] [facility] [address] [id number] [place] [address]- 9416 May, [facility] [place] [facility] [address] [id number] [place] [address]- 7276 May, [facility] [place] [facility] [address] [id number] [place] [address]- 3626 Jan, [facility] [place] [facility] [address] [id number] [place] [address]- 2546 Jan, [facility] [place] [facility] [address] [id number] [place] [address]- 7326 Dec, [facility] [place] [facility] [address] [id number] [place] [address]- 1148 Dec, [facility] [place] [facility] [address] [id number] [place] [address]- 3576 Dec, [facility] [place] [facility] [address] [facility] [id number] [place] [address]- 8849 Dec, [facility] [place] [facility] [address] [id number] [place] [address]- 9023 Dec, [facility] [place] [facility] [address] [place] [id number] [place] [address]- 7685 Dec, [facility] [place] [facility] [address] [place] [id number] [place] [address]- 4216 Dec, [facility] [place] [facility] [address] [place] [id number] [place] [address]- 9726 Aug, [facility] [address] [id number] [id number] Apr, [facility] [place] [facility] [address] [id number] [place] [address]- 1126 Apr, [facility] [place] [facility] [address] [facility] [id number] [place] [address]- 7676 Apr, [facility] [place] [facility] [address] [facility] [id number], [place] [address]- 2546 Apr, [facility] [place] [facility] [address] [place] [id number] [address]- 8786 02 Apr, 2011 [facility] [address] [facility] [id number], [place] [address]- 0756 17 Dec, 2010 [facility] [address] [facility] [id number], [place] [address]- 2292 14 Dec, 2010 [facility] [address] [facility] [id number], [place] [address]- 7028 Dec, [facility] [address] [facility] [id number], [place] [address]- 5643 Dec, [facility] [address] [facility] [id number], [place] [address]- 0450 19 Feb, 2010 [facility] [address] [facility] [id number], [place] [address]- 4995 16 Feb, 2010 [facility] [address] [address] Feb, [facility] [address] [facility] [id number], [place] [address]- 8202 Feb, [facility] [address] [facility] [id number], [place] [address]- 1026 14 Aug, 2009 [facility] [address] [facility] [id number], [place] [address]- 0722 May, IMMUNIZATIONS No Known Immunizations SOCIAL HISTORY Never Assessed REASON FOR VISIT Lab results PLAN OF CARE VITAL SIGNS MEDICATIONS No [...] UTI 11/27/15 Hospitalization History Upper abdominal pain, [facility] 06/08/16
--- OUTSIDE RECORDS SUMMARY | 2018-02-16 16:33 | XMS REPORT ---
Author Author CHERRY MARTIN Organization [facility] Address [address] [place] [address] Care Team Providers Care Intake Coordinator Name Role Phone CHERRY MARTIN Unavailable PROBLEMS Type Condition ICD9-CM Code [id number] Code Onset Dates Condition Status SNOMED Code Problem Gastroesophageal reflux disease with esophagitis K21.0 Active 436125819 Problem Type 2 diabetes mellitus without complications E11.9 Active 381218986 Problem Seasonal allergic rhinitis, unspecified allergic rhinitis trigger J30.2 Active 874651214 Problem Other obesity due to excess calories E66.09 Active 730580135 Problem Body mass index (BMI) of 33.0-33.9 in adult Z68.33 Active 538562904 Problem Acute seasonal allergic rhinitis, unspecified trigger J30.2 Active 059922228 Problem GERD (gastroesophageal reflux disease) K21.9 Active 794551743 Problem Iron deficiency anemia due to chronic blood loss D50.0 Active 421820038 Problem Acute left-sided back pain with sciatica M54.42 Active 832548418 Problem Abnormal mammogram of left breast R92.8 Active 116565503 Problem Type 2 diabetes mellitus with hyperglycemia E11.65 Active 756899694 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 678817254 Problem Type 2 diabetes mellitus without complication E11.9 Active 47345517 Problem Other chronic pain G89.29 Active 75208272 Problem Esophageal spasm K22.4 Active 14585357 Problem Ulcer of esophagus without bleeding K22.10 Active 22104319 ALLERGIES Substance Reaction Event Type Date Status Reglan dizziness Drug Allergy Feb, Active Penicillin V Potassium Unknown Drug Allergy Feb, Active ENCOUNTERS Encounter Location Date Diagnosis [facility] [address] [facility] [id number] [address] Aug, [facility] [address] [facility] [id number] [address] Aug, Abnormal mammogram of left breast R92.8 [place] [id number] [place] [address] 25973- 1193 08 Aug, 2017 [place] [id number] [place] [address] 45206- 5931 Aug, Encounter for well woman exam with routine gynecological exam Z01.419 ; Screen for STD (sexually transmitted disease) Z11.3 ; Screening breast examination Z12.31 ; Other obesity due to excess calories E66.09 and Body mass index (BMI) of 33.0-33.9 in adult Z68.33 [place] [id number] [place] [address] 31004- 9582 14 Jul, 2017 Type 2 diabetes mellitus with hyperglycemia E11.65 and Iron deficiency anemia due to chronic blood loss D50.0 [place] [address] [address]- [address]406 16 Jun, 2017 Acute left-sided back pain with sciatica M54.42 ; Type 2 diabetes mellitus without complications E11.9 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 [facility] [id number] [place] [address] 33298 -8584 09 Jun, 2017 Dysuria R30.0 and Lumbar back pain M54.5 [facility] [id number] [place] [address] 29[address] -6002 Feb, Acute seasonal allergic rhinitis, unspecified trigger J30.2 [place] [id number] [place] [address] 80650- 9693 Feb, Acute posthemorrhagic anemia D62 [place] [id number] [place] [address] 96903- 6897 05 Feb, 2017 Acute posthemorrhagic anemia D62 [place] [address] 24879- 8981 04 Feb, 2017 Type 2 diabetes mellitus without complication E11.9 and Dry skin L85.3 [place] [address] 6[address]- [address]458 Dec, [facility] [id number] [place] [address] 01991 -4523 18 Nov, 2016 Weakness R53.1 and GERD (gastroesophageal reflux disease) K21.9 [place] [id number] [place] [address] 10255- 0390 18 Nov, 2016 [place] [address] 34490- 6574 Sep, Type 2 diabetes mellitus without complications E11.9 [facility] [address] [address] July, Dysuria R30.0 and Acute cystitis with hematuria N30.01 [facility] [place] [id number] [place] [address] 92018 -7846 Jun, Seasonal allergic rhinitis, unspecified allergic rhinitis trigger J30.2 [place] [address] [address]41- 3108 Jun, Hiatal hernia K44.9 and Ulcer of esophagus without bleeding K22.10 [place] [address] 57344- 6697 Jun, Gastroesophageal reflux disease with esophagitis K21.0 [place] [address] [place] [address] [id number] [place] [address] [id number] Jun, [place] [id number] [place] [address] 08989- 8945 May, Type 2 diabetes mellitus with hyperglycemia E11.65 and assisted current use of insulin Z79.4 [place] [id number] [place] [address] 70051- 9077 May, Other chronic pain G89.29 and Pain in left hip M25.552 [place] [id number] [place] [address] 79897- 8800 13 Apr, 2016 Nausea R11.0 [place] [address] [place] [id number] [place] [address] 07671- 1603 09 Apr, 2016 SOB (shortness of breath) R06.02 ; Coughing R05 and Type 2 diabetes mellitus without complication E11.9 [facility] [id number] [place] [address]15 -7374 Apr, Bronchitis J40 [facility] [address] 85847- 7276 Mar, Hiatal hernia K44.9 and Bronchitis J40 [facility] [address] 34933- 7649 Mar, [facility] [address] [address]88- 8239 Mar, [facility] [address] 71845- 2761 Jan, [facility] [address] 69090- 1837 Dec, [facility] [id number] [place] [address] 47528- 1428 Dec, Esophageal spasm K22.4 [facility] [id number] [place] [address] 10549- 9759 Dec, [facility] [id number] [place] [address] 50737 -3467 Dec, Right upper quadrant pain R10.11 and Abdominal pain, unspecified location R10.9 [facility] [id number] [place] [address] 68002 -9117 Dec, Right upper quadrant pain R10.11 [facility] [id number] [place] [address] 27532- 0803 Nov, Type 2 diabetes mellitus without complication E11.9 and Right upper quadrant pain R10.11 [facility] [id number] [place] [address] 99453 -6871 Nov, Dysuria R30.0 and Abdominal pain, unspecified location R10.9 [place] [id number] [place] [address] 75182- 6280 Aug, Chronic gastritis without bleeding, unspecified gastritis type K29.50 ; Dysuria R30.0 and Type 2 diabetes mellitus without complication E11.9 [place] [id number] [place] [address] 95277- 1413 Aug, Gastroesophageal reflux disease, esophagitis presence not specified K21.9 and Acute cystitis with hematuria N30.01 [facility] [address] [address] Aug, Dysuria R30.0 [place] [address] 90026- [address] July, [place] [address] 53721- 2421 Jun, [place] [address] 17215- 3118 May, Diabetes type 2, controlled E11.9 and Allergic rhinitis J30.9 [place] [address] 22806- 8833 Apr, Type 2 diabetes mellitus without complication E11.9 and Cough R05 [place] [address] 33278- 2862 Apr, Vertigo R42 and Non-intractable vomiting with nausea, vomiting of unspecified type R11.2 [facility] [address] 5[address]85 -9382 Mar, Acute laryngopharyngitis J06.0 ; Acute diarrhea R19.7 and Acute bacterial sinusitis J01.90 [place] [id number] [place] [address] 65567- 3989 Mar, Upper respiratory infection 465.9 [place] [address] 88698- 7006 Dec, Diabetes E11.9 [facility] [address] [place] [address] 01048- 8596 10 Nov, 2014 Upper respiratory infection 465.9 [facility] [address] [address] Sep, [facility] [id number] [place] [address] 59861- 7396 Sep, Diabetes 250.00 [facility] [id number] [place] [address] 13458- 7166 July, Diabetes mellitus without mention of complication, type II or unspecified type, uncontrolled 250.02 and Cervicalgia 723.1 [facility] [address] [address] 2546 July, [facility] [id number] [place] [address] 25245- 1238 Jun, [facility] [address] [address] Jun, [facility] [address] [place] [address] 00728- 3336 May, [facility] [address] [address] May, [facility] [address] [address] 97[address] Apr, [facility] [address] [place] [id number] [address] 2546 Apr, [facility] [address] [address]- 2546 Apr, [facility] [address] [address]- 2546 Apr, [facility] [id number] [address] 0608 Mar, [facility] [place] [facility] [address] [id number] [place] [address]- 0588 Mar, [facility] [place] [facility] [address] [id number] [place] [address]- 5546 Feb, [facility] [place] [facility] [address] [id number] [place] [address]- 3896 Feb, [facility] [place] [facility] [address] [id number] [place] [address]- 3111 Jan, [facility] [place] [facility] [address] [id number] [place] [address]- 2341 Jan, [facility] [place] [facility] [address] [id number] [place] [address]- 0124 Aug, [facility] [place] [facility] [address] [id number] [place] [address]- 8534 Aug, [facility] [place] [facility] [address] [id number] [place] [address]- 7681 July, [facility] [place] [facility] [address] [id number] [place] [address]- 7775 July, [facility] [place] [facility] [address] [id number] [place] [address]- 6893 Nov, [facility] [place] [facility] [address] [id number] [place] [address]- 0240 Nov, [facility] [place] [facility] [address] [id number] [place] [address]- 1714 Nov, [facility] [place] [facility] [address] [id number] [place] [address]- 3998 Sep, [facility] [place] [facility] [address] [id number] [place] [address]- 6603 Aug, [facility] [place] [facility] [address] [id number] [place] [address]- 9542 July, [facility] [place] [facility] [address] [id number] [place] [address]- 3830 29 Jun, 2012 [facility] [address] [id number] [place] [address]- 7863 29 Jun, 2012 [facility] [place] [facility] [address] [id number] [place] [address]- 7323 26 Jun, 2012 [facility] [address] [id number] [place] [address]- 9323 16 Jun, 2012 [facility] [place] [facility] [address] [id number] [place] [address]- 8480 15 May, 2012 [facility] [address] [id number] [place] [address]- 5416 May, [facility] [place] [facility] [address] [id number] [place] [address]- 2809 Jan, [facility] [address] [id number] [place] [address]- 6924 Jan, [facility] [address] [id number] [place] [address]- 5778 Dec, [facility] [address] [id number] [place] [address]- 6762 Dec, [facility] [address] [facility] [id number] [place] [address]- 3964 Dec, [facility] [address] [id number] [place] [address]- 8766 Dec, [facility] [place] [facility] [address] [id number] [place] [address]- 9226 Dec, [facility] [place] [facility] [address] [id number] [place] [address]- 3194 Dec, [facility] [place] [facility] [address] [facility] [id number] [place] [address]- 4588 Dec, [facility] [place] [facility] [address] [facility] [id number] [place] [address]- 0717 Aug, [facility] [address] [id number] [id number] Apr, [facility] [address] [facility] [id number] [address] Apr, [facility] [address] [facility] [id number] [address] 2546 Apr, [facility] [address] [facility] [id number] [address]- 4686 Apr, [facility] [address] [facility] [id number] [address] 2546 Apr, [facility] [address] [address]- 5046 Dec, [facility] [address] [address]- 2383 Dec, [facility] [address] [address] Dec, [facility] [address] 8097 Dec, [facility] [address] [address] 19 Feb, 2010 [facility] [id number] [address]- 7457 16 Feb, 2010 [facility] [id number] [address]- 2546 13 Feb, 2010 [facility] [address] [id number] [address]- 3409 13 Feb, 2010 [facility] [address] [facility] [id number] [address]- 2969 14 Aug, 2009 [facility] [address] [facility] [id number] [address]- 0978 16 May, 2009 IMMUNIZATIONS No Known Immunizations SOCIAL HISTORY Never Assessed REASON FOR VISIT Diabetes with concerns of her Sharath HYDE PLAN OF CARE VITAL SIGNS Height 63 in 2017-02-11 Weight 168.7 lbs 2017-02-11 Temperature 98.5 degrees Fahrenheit 2017-02-11 Heart Rate 68 bpm 2017-02-11 Respiratory Rate 18 2017-02-11 BMI 29.88 kg/m2 2017-02-11 Blood pressure systolic 128 mmHg 2017-02-11 Blood pressure diastolic 82 mmHg 2017-02-11 MEDICATIONS Medication Instructions Dosage Frequency Start Date End Date Duration Status Zyrtec Allergy 10 MG Orally Once a day 1 tablet 24h Active Acetaminophen 500 MG Orally every 6 hrs 2 capsules as needed 6h Active Singulair 10 MG Orally Once a day 1 tablet in the evening 24h May, 30 day(s) Active Zofran 8 MG Orally every 8 hours as needed 1 tablet Nov, 30 day(s) Active Albuterol Sulfate HFA 108 (90 Base) MCG/ACT Inhalation every 4 hrs 2 puffs as needed 4h Active Ankit Contour Test 1 In Vitro 2 times a day as directed 12h Apr, Active Metformin HCl 1000 MG Orally Twice a day 1 tablet with meals 12h May, 30 day(s) Active Lantus SoloStar 100 UNIT/ML Subcutaneous Once a day 50 units 24h Active RESULTS No Results PROCEDURES Procedure Date Ordered Result Body Site GLYCATED HEMOGLOBIN TEST Feb 11, 2017 MICROALBUMIN, SEMIQUANT Feb 11, 2017 VENIPUNCT, ROUTINE* Feb 11, 2017 ASSAY THYROID STIM HORMONE Feb 11, 2017 LIPID PANEL Feb 11, 2017 COMPLETE CBC W/AUTO DIFF WBC Feb 11, 2017 COMPREHEN METABOLIC PANEL Feb 11, 2017 INSTRUCTIONS MEDICATIONS ADMINISTERED No Known [...]
--- OUTSIDE RECORDS SUMMARY | 2018-02-16 16:33 | XMS REPORT ---
Author Author DAVE Mclean [facility] Address [address] [place] [address] Care Team Providers Care Compensation Adjuster Name Role Phone franADRIANAKATHY DAVE Unavailable PROBLEMS Type Condition ICD9-CM Code AUU23-AE Code Onset Dates Condition Status SNOMED Code Problem skilled nursing current use of insulin Z79.4 Active 636084242 Problem Ulcer of esophagus without bleeding K22.10 Active 67565072 Problem Other chronic pain G89.29 Active 96478958 Problem Type 2 diabetes mellitus without complication E11.9 Active 31149622 Problem Esophageal spasm K22.4 Active 17230095 Problem Type 2 diabetes mellitus with hyperglycemia E11.65 Active 796041459 Problem Acute left-sided back pain with sciatica M54.42 Active 644044604 Problem Acute seasonal allergic rhinitis, unspecified trigger J30.2 Active 230243668 Problem Seasonal allergic rhinitis, unspecified allergic rhinitis trigger J30.2 Active 933094611 Problem Gastroesophageal reflux disease with esophagitis K21.0 Active 130292810 Problem GERD (gastroesophageal reflux disease) K21.9 Active 046222031 Problem Type 2 diabetes mellitus without complications E11.9 Active 498249852 ALLERGIES Substance Reaction Event Type Date Status Reglan dizziness Drug Allergy Nov, Active Penicillin V Potassium Unknown Drug Allergy Nov, Active ENCOUNTERS Encounter Location Date Diagnosis [facility] [address] [facility] [id number] [address] Aug, [facility] [address] [address] July, [facility] [address] [place] [id number] [address] Jun, Acute left-sided back pain with sciatica M54.42 ; Type 2 diabetes mellitus without complications E11.9 and skilled nursing current use of insulin Z79.4 [facility] [id number] [place] [address] Jun, Dysuria R30.0 and Lumbar back pain M54.5 [facility] [address] [address] Feb, Acute seasonal allergic rhinitis, unspecified trigger J30.2 [place] [address] [address] Feb, Acute posthemorrhagic anemia D62 [place] [address] [address] Feb, Acute posthemorrhagic anemia D62 [place] [address] [address] Feb, Type 2 diabetes mellitus without complication E11.9 and Dry skin L85.3 [place] [address] [address] Dec, [facility] [address] [address] Nov, Weakness R53.1 and GERD (gastroesophageal reflux disease) K21.9 [place] [address] [address] Nov, [place] [address] [address] Sep, Type 2 diabetes mellitus without complications E11.9 [facility] [address] [address] July, Dysuria R30.0 and Acute cystitis with hematuria N30.01 [facility] [address] [address] Jun, Seasonal allergic rhinitis, unspecified allergic rhinitis trigger J30.2 [place] [address] [address] Jun, Hiatal hernia K44.9 and Ulcer of esophagus without bleeding K22.10 [facility] [id number] [place] [address] 07 Jun, 2016 Gastroesophageal reflux disease with esophagitis K21.0 [facility] [id number] [place] [address] [id number] Jun, 2016 [facility] [address] [address] May, Type 2 diabetes mellitus with hyperglycemia E11.65 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.4 [place] [address] [address] May, Other chronic pain G89.29 and Pain in left hip M25.552 [place] [address] [address] 13 Apr, 2016 Nausea R11.0 [facility] [address] [address] 09 Apr, 2016 SOB (shortness of breath) R06.02 ; Coughing R05 and Type 2 diabetes mellitus without complication E11.9 [facility] [id number] [place] [address] Apr, Bronchitis J40 [facility] [id number] [place] [address] Mar, Hiatal hernia K44.9 and Bronchitis J40 [facility] [id number] [place] [address]- 9232 Mar, [place] [address] [address] Mar, [facility] [address] [address] Jan, [facility] [id number] [place] [address] Dec, [place] [id number] [place] [address]61[address] 2[address] Dec, Esophageal spasm K22.4 [facility] [id number] [place] [address] 2592 Dec, [facility] [id number] [place] [address] Dec, Right upper quadrant pain R10.11 and Abdominal pain, unspecified location R10.[address] [facility] [id number] [place] [address] Dec, Right upper quadrant pain R10.11 [place] [id number] [place] [address]02- [address] 29 Nov, 2015 Type 2 diabetes mellitus without complication E11.9 and Right upper quadrant pain R10.11 [facility] [place] [id number] [place] [address] Nov, Dysuria R30.0 and Abdominal pain, unspecified location R10.9 [place] [id number] [place] [address] 6[address]16- [address] Aug, Chronic gastritis without bleeding, unspecified gastritis type K29.50 ; Dysuria R30.0 and Type 2 diabetes mellitus without complication E11.9 [place] [id number] [place] [address]697 Aug, Gastroesophageal reflux disease, esophagitis presence not specified K21.9 and Acute cystitis with hematuria N30.01 [facility] [id number] [place] [address] 07 Aug, 2015 Dysuria R30.0 [place] [address] [address] July, [facility] [id number] [place] [address] Jun, [facility] [address] [address] May, Diabetes type 2, controlled E11.9 and Allergic rhinitis J30.9 [facility] [id number] [place] [address]306[address] 3230 Apr, Type 2 diabetes mellitus without complication E11.9 and Cough R05 [facility] [id number] [place] [address] 88008- 8166 Apr, Vertigo R42 and Non-intractable vomiting with nausea, vomiting of unspecified type R11.2 [facility] [id number] [place] [address] Mar, Acute laryngopharyngitis J06.0 ; Acute diarrhea R19.7 and Acute bacterial sinusitis J01.90 [facility] [id number] [place] [address] 44192- 9180 Mar, Upper respiratory infection 465.9 [facility] [id number] [place] [address] 83600- 9126 Dec, Diabetes E11.9 [facility] [id number] [place] [address] 03568- 4874 Nov, Upper respiratory infection 465.9 [facility] [id number] [place] [address] 92139- 6579 Sep, [facility] [id number] [place] [address] 97191- 7578 Sep, Diabetes 250.00 [facility] [id number] [place] [address] 10302- 5273 July, Diabetes mellitus without mention of complication, type II or unspecified type, uncontrolled 250.02 and Cervicalgia 723.1 [facility] [id number] [place] [address] 86145- 1738 July, [facility] [id number] [place] [address] 03462- 2835 Jun, [facility] [id number] [address] Jun, [facility] [place] [facility] [address] [id number] [place] [address] May, [facility] [place] [facility] [address] [id number] [place] [address] 2598 May, [facility] [place] [facility] [address] [id number] [place] [address]- 6[address] Apr, [facility] [place] [facility] [address] [id number] [place] [address]- 0716 Apr, [facility] [place] [facility] [address] [id number] [place] [address]- 6689 Apr, [facility] [place] [facility] [address] [id number] [place] [address]- 0663 Apr, [facility] [place] [facility] [address] [id number] [place] [address]- 5575 Mar, [facility] [place] [facility] [address] [id number] [place] [address]- 6028 Mar, [facility] [place] [facility] [address] [id number] [place] [address]- 1679 Feb, [facility] [place] [facility] [address] [id number] [place] [address]- 7813 Feb, [facility] [place] [facility] [address] [id number] [place] [address]- 4561 Jan, [facility] [place] [facility] [address] [id number] [place] [address]- 9623 Jan, [facility] [place] [facility] [address] [id number] [place] [address]- 3202 Aug, [facility] [place] [facility] [address] [id number] [place] [address]- 4246 Aug, [facility] [place] [facility] [address] [id number] [place] [address]- 2830 July, [facility] [address] [id number] [place] [address]- 4207 July, [facility] [address] [id number] [place] [address]- 4479 Nov, [facility] [place] [facility] [address] [id number] [place] [address]- 1351 Nov, [facility] [place] [facility] [address] [id number] [place] [address]- 3834 Nov, [facility] [address] [id number] [place] [address]- 9742 Sep, [facility] [place] [facility] [address] [id number] [place] [address]- 6056 Aug, [facility] [place] [facility] [address] [id number] [place] [address]- 7472 July, [facility] [address] [id number] [place] [address]- 6930 Jun, [facility] [place] [facility] [address] [id number] [place] [address]- 8113 Jun, [facility] [place] [facility] [address] [id number] [place] [address]- 0516 Jun, [facility] [place] [facility] [address] [id number] [place] [address]- 6504 Jun, [facility] [place] [facility] [address] [id number] [place] [address]- 5543 May, [facility] [place] [facility] [address] [id number] [place] [address]- 0012 May, [facility] [place] [facility] [address] [id number] [place] [address]- 7383 Jan, [facility] [place] [facility] [address] [id number] [place] [address]- 3480 Jan, [facility] [place] [facility] [address] [id number] [place] [address]- 7286 Dec, [facility] [place] [facility] [address] [id number] [place] [address]- 8799 Dec, [facility] [place] [facility] [address] [id number] [place] [address]- 0906 Dec, [facility] [place] [facility] [address] [id number] [place] [address]- 1636 Dec, [facility] [place] [facility] [address] [id number] [place] [address]- 9228 Dec, [facility] [place] [facility] [address] [id number] [place] [address]- 6192 Dec, [facility] [place] [facility] [address] [id number] [place] [address]- 8626 Dec, [facility] [place] [facility] [id number] [address]- 65[address] Aug, [facility] [address] [place] [address] [id number][place] [id number] Apr, [facility] [place] [facility] [address] [id number] [place] [address]- 9136 Apr, [facility] [place] [facility] [address] [facility] [id number] [place] [address]- 5516 Apr, [facility] [place] [facility] [address] [id number] [place] [address]- 9916 Apr, [facility] [place] [facility] [address] [id number] [place] [address]- 0814 Apr, [facility] [place] [facility] [address] [id number] [place] [address]- 4969 Dec, [facility] [place] [facility] [address] [id number] [place] [address]- 0573 14 Dec, 2010 [facility] [place] [facility] [address] [id number] [place] [address]- 5106 Dec, [facility] [place] [facility] [address] [facility] [id number] [place] [address]- 5316 11 Dec, 2010 [facility] [id number] [address] Feb, [facility] [address] [address]- 1702 16 Feb, 2010 [facility] [address] [address]- 1671 Feb, [facility] [id number] [address] Feb, [facility] [address] [address] 14 Aug, 2009 [facility] [id number] [address] May, IMMUNIZATIONS No Known Immunizations SOCIAL HISTORY Never Assessed REASON FOR VISIT Patient thinks her hemoglobin is low because her skin color is pale. reports she is weak and has been coughing and gagging. this has been going on since july. jennifer PLAN OF CARE Activity Details Follow Up prn Reason: VITAL SIGNS Height 63 in 2016-11-26 Weight 172.8 lbs 2016-11-26 Temperature 98.2 degrees Fahrenheit 2016-11-26 Heart Rate 88 bpm 2016-11-26 Respiratory Rate 20 2016-11-26 BMI 30.61 kg/m2 2016-11-26 Blood pressure systolic 124 mmHg 2016-11-26 Blood pressure diastolic 88 mmHg 2016-11-26 MEDICATIONS Medication Instructions Dosage Frequency Start Date End Date Duration Status Singulair 10 MG Orally Once a day [...] with meals 12h May, 30 day(s) Active Hyoscyamine Sulfate 0.125 MG Orally every 4 hrs 1 tablet before meals as needed 4h Active Lantus SoloStar 100 UNIT/ML Subcutaneous Once a day 50 units 24h Active Protonix 40 mg Orally 2 times a day 1 tablet 12h 30 days Active Zofran 8 MG Orally every 8 hours as needed 1 tablet Nov, 30 day(s) Active Guaifenesin 400 mg Orally 2 times a day 1 tablet as needed 12h Active RESULTS Name Result Date Reference Range HEMOGLOBIN (IN HOUSE) 2016-11-26 HEMOGLOBIN 13.5 11.5 - 16 gm/dL Lot # [id number] Exp date 2017 PROCEDURES Procedure Date Ordered Result Body Site HEMOGLOBIN Nov 26, 2016 INSTRUCTIONS MEDICATIONS ADMINISTERED No Known Medications MEDICAL [...]
--- OUTSIDE RECORDS SUMMARY | 2018-02-16 16:34 | XMS REPORT ---
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 Active 318757737 Problem Ulcer of esophagus without bleeding K22.10 Active 40032599 Problem Other chronic pain G89.29 Active 28002906 Problem Type 2 diabetes mellitus without complication E11.9 Active 00260994 Problem Esophageal spasm K22.4 Active 92811691 Problem Type 2 diabetes mellitus with hyperglycemia E11.65 Active 233405020 Problem Acute left-sided back pain with sciatica M54.42 Active 615895535 Problem Acute seasonal allergic rhinitis, unspecified trigger J30.2 Active 729358612 Problem Seasonal allergic rhinitis, unspecified allergic rhinitis trigger J30.2 Active 138033069 Problem Gastroesophageal reflux disease with esophagitis K21.0 Active 434490879 Problem GERD (gastroesophageal reflux disease) K21.9 Active 182317023 Problem Type 2 diabetes mellitus without complications E11.9 Active [id number] ALLERGIES No Information ENCOUNTERS Encounter Location Date Diagnosis [facility] [id number] [place] [address] 15620- 1456 Aug, [facility] [address] [place] [id number] [place] [address] 21269- 9590 July, [facility] [id number] [place] [address] 17419- 4057 Jun, Acute left-sided back pain with sciatica M54.42 ; Type 2 diabetes mellitus without complications E11.9 and FCI current use of insulin Z79.4 [facility] [id number] [place] [address] 58419 -8541 Jun, Dysuria R30.0 and Lumbar back pain M54.5 [facility] [id number] [place] [address] 77533 -3826 29 Feb, 2017 Acute seasonal allergic rhinitis, unspecified trigger J30.2 [facility] [id number] [place] [address] 88722- 8300 18 Feb, 2017 Acute posthemorrhagic anemia D62 [place] [address] 44280- 1740 05 Feb, 2017 Acute posthemorrhagic anemia D62 [place] [address] 17208- 8301 04 Feb, 2017 Type 2 diabetes mellitus without complication E11.9 and Dry skin L85.3 [place] [address] 78060- 2210 Dec, [facility] [place] [address] 61641 -7428 Nov, Weakness R53.1 and GERD (gastroesophageal reflux disease) K21.9 [place] [address] [id number] [place] [address] 58305- 1977 Nov, [place] [address] [address] [id number] [place] [address] 58603- 2625 Sep, Type 2 diabetes mellitus without complications E11.9 [facility] [place] [address] [address] [id number] [place] [address] 13468 -7982 July, Dysuria R30.0 and Acute cystitis with hematuria N30.01 [facility] [place] [address] [id number] [place] [address] 33897 -0635 Jun, Seasonal allergic rhinitis, unspecified allergic rhinitis trigger J30.2 [place] [address] [address] [id number] [place] [address] 92578- 2303 Jun, Hiatal hernia K44.9 and Ulcer of esophagus without bleeding K22.10 [place] [address] 64486- 4112 Jun, Gastroesophageal reflux disease with esophagitis K21.0 [facility] [address] [id number] Jun, [facility] [address] 27024- 2045 May, Type 2 diabetes mellitus with hyperglycemia E11.65 and FCI current use of insulin Z79.4 [facility] [address] 09784- 9817 May, Other chronic pain G89.29 and Pain in left hip M25.552 [place] [address] 94091- 1090 13 Apr, 2016 Nausea R11.0 [facility] [address] 00050- 2985 09 Apr, 2016 SOB (shortness of breath) R06.02 ; Coughing R05 and Type 2 diabetes mellitus without complication E11.9 [facility] [address] 62868 -9395 Apr, Bronchitis J40 [facility] [address] 87399- 5186 Mar, Hiatal hernia K44.9 and Bronchitis J40 [facility] [address] 97559- 5442 Mar, [facility] [address] 65728- 7296 Mar, [facility] [address] 76549- 5083 Jan, [facility] [address] 83196- 3438 Dec, [facility] [address] 25720- 7466 Dec, Esophageal spasm K22.4 [facility] [id number] [place] [address] 11407- 5352 Dec, [facility] [id number] [place] [address] 19864 -3291 Dec, Right upper quadrant pain R10.11 and Abdominal pain, unspecified location R10.9 [facility] [id number] [place] [address] 16136 -8455 Dec, Right upper quadrant pain R10.11 [place] [address] [place] [id number] [place] [address] 46935- 9194 Nov, Type 2 diabetes mellitus without complication E11.9 and Right upper quadrant pain R10.11 [facility] [place] [address] [id number] [place] [address] 64787 -6966 Nov, Dysuria R30.0 and Abdominal pain, unspecified location R10.9 [place] [address] [address] [id number] [place] [address] 85726- 9459 Aug, Chronic gastritis without bleeding, unspecified gastritis type K29.50 ; Dysuria R30.0 and Type 2 diabetes mellitus without complication E11.9 [place] [address] [id number] [place] [address] 11408- 3565 Aug, Gastroesophageal reflux disease, esophagitis presence not specified K21.9 and Acute cystitis with hematuria N30.01 [facility] [id number] [place] [address] 19099 -0814 Aug, Dysuria R30.0 [place] [address] [address] [id number] [place] [address] 18863- 8052 July, [place] [address] [id number] [place] [address] 81600- 1902 Jun, [place] [address] [address] [id number] [place] [address] 11830- 8244 May, Diabetes type 2, controlled E11.9 and Allergic rhinitis J30.9 [place] [address] [id number] [place] [address] 08574- 7887 Apr, Type 2 diabetes mellitus without complication E11.9 and Cough R05 [facility] [address] [address] [id number] [place] [address] 94041- 7839 Apr, Vertigo R42 and Non-intractable vomiting with nausea, vomiting of unspecified type R11.2 [facility] [id number] [place] [address] 48626 -4625 Mar, Acute laryngopharyngitis J06.0 ; Acute diarrhea R19.7 and Acute bacterial sinusitis J01.90 [place] [address] 26930- 1865 Mar, Upper respiratory infection 465.9 [place] [address] 18138- 0387 Dec, Diabetes E11.9 [place] [address] 38724- 9595 Nov, Upper respiratory infection 465.9 [facility] [address] [address] [id number] [place] [address] 89508- 0624 Sep, [facility] [address] [place] [id number] [place] [address] 60071- 8417 Sep, Diabetes 250.00 [place] [address] [address] [id number] [place] [address] 76552- 4442 July, Diabetes mellitus without mention of complication, type II or unspecified type, uncontrolled 250.02 and Cervicalgia 723.1 [facility] [address] [place] [id number] [place] [address] 66981- 8659 July, [facility] [address] 54956- 5606 Jun, [facility] [address] [id number] [place] [address] 43660- 5342 Jun, [facility] [address] [address] [id number] [place] [address] 43625- 9021 May, [facility] [place] [facility] [address] [id number] [place] [address]- 1552 May, [facility] [place] [facility] [address] [id number] [place] 6293 Apr, [facility] [place] [facility] [address] [id number] [place] [address]- 5296 Apr, [facility] [place] [facility] [address] [id number] [place] 8690 Apr, [facility] [place] [facility] [address] [id number] [place]- 2744 Apr, [facility] [place] [facility] [address] [id number] [place] [address]- 2357 Mar, [facility] [place] [facility] [address] [id number] [place] [address]- 0421 Mar, [facility] [place] [facility] [address] [id number] [place] [address]- 0635 Feb, [facility] [place] [facility] [address] [id number] [place] [address]- 1645 Feb, [facility] [place] [facility] [address] [id number] [place] [address]- 0497 Jan, [facility] [place] [facility] [address] [id number] [place] [address]- 3212 Jan, [facility] [place] [facility] [address] [id number] [place] [address]- 0144 Aug, [facility] [place] [facility] [address] [id number] [place] 6360 Aug, [facility] [place] [facility] [address] [id number] [place] 8984 July, [facility] [place] [facility] [address] [id number] [place] [address]- 6028 July, [facility] [place] [facility] [address] [id number] [place] [address]- 2834 Nov, [facility] [address] [id number] [place] [address]- 2733 13 Nov, 2012 [facility] [place] [facility] [address] [id number] [place] [address]- 6960 Nov, [facility] [address] [id number] [place] [address]- 8435 Sep, [facility] [address] [id number] [place] [address]- 2846 Aug, [facility] [place] [facility] [address] [id number] [place] [address]- 7872 July, [facility] [address] [id number] [place] [address]- 8595 Jun, [facility] [address] [id number] [place] [address]- 2901 Jun, [facility] [address] [id number] [place] [address]- 1479 Jun, [facility] [address] [id number] [place] [address]- 7226 16 Jun, 2012 [facility] [address] [id number] [place] [address]- 3054 May, [facility] [place] [facility] [address] [id number] [place] [address]- 4331 May, [facility] [place] [facility] [address] [id number] [place] [address]- 4296 Jan, [facility] [place] [facility] [address] [id number] [place] [address]- 8886 Jan, [facility] [place] [facility] [address] [id number] [place] [address]- 6093 30 Dec, 2011 [facility] [place] [facility] [address] [id number] [place] [address]- 7336 Dec, [facility] [place] [facility] [address] [id number] [place] [address]- 6556 Dec, [facility] [place] [facility] [address] [id number] [place] [address]- 9766 Dec, [facility] [place] [facility] [address] [id number] [place] [address]- 4646 Dec, [facility] [place] [facility] [address] [id number] [place] [address]- 7406 Dec, [facility] [place] [facility] [address] [id number] [place] [address]- 3006 Dec, [facility] [place] [facility] [address] [id number] [place] [address]- 3376 Aug, [facility] [address] [id number] [id number] Apr, [facility] [place] [facility] [address] [id number] [place] [address]- 7458 Apr, [facility] [place] [facility] [address] [id number] [place] [address]- 9980 Apr, [facility] [place] [facility] [address] [id number] [place] [address]- 8206 Apr, [facility] [place] [facility] [address] [id number] [place] [address]- 4396 Apr, [facility] [place] [facility] [address] [id number] [place] [address]- 1336 Dec, [facility] [place] [facility] [address] [id number] [place] [address]- 1156 14 Dec, 2010 [facility] [place] [facility] [address] [id number] [place] [address]- 8746 Dec, [facility] [place] [facility] [address] [id number] [place] [address]- 6466 Dec, [facility] [place] [facility] [address] [id number] [place] [address]- 1627 19 Feb, 2010 [facility] [address] [id number] [place] [address]- 9028 16 Feb, 2010 [facility] [address] [id number] [place] 2784 13 Feb, 2010 [facility] [address] [id number] [place] [address]- 6511 Feb, [facility] [address] [id number] [address] 0596 14 Aug, 2009 [facility] [address] [id number] [place] 3371 16 May, 2009 IMMUNIZATIONS No Known Immunizations SOCIAL HISTORY Never Assessed REASON FOR VISIT PLAN OF CARE VITAL SIGNS MEDICATIONS Unknown [...] UTI 11/27/15 Hospitalization History Upper abdominal pain, [facility] 06/08/16
--- OUTSIDE RECORDS SUMMARY | 2018-02-16 16:40 | XMS REPORT | Continuity of Care Document ---
Author Author [facility] Address Unknown Phone Unavailable Allergies Active Description Code Type Severity Reaction Onset Reported/Identified Relationship to Patient Clinical Status Yes Penicillins Drug Allergy 05/24/2009 Yes Penicillins Drug Allergy N/A N/A 05/24/2009 Yes Penicillins [id number] Drug Allergy Mild N/A 03/10/2016 Yes metoclopramide [id number] Drug Allergy Moderate N/A 07/30/2016 Medications There is no data. Problems Date Dx Coded Attending Type Code [...] 272.4 HYPERLIPIDEMIA HYPERLIPOPROTEINEMIAS (Old Classification) 05/24/2009 MARIO CLEANER AND PREPARER, CHERRY T 250.02 DIABETES MELLITUS POORLY CONTROLLED 05/24/2009 MARIO SHRESTHAN, CHERRY T 272.4 HYPERLIPIDEMIA HYPERLIPOPROTEINEMIAS (Old Classification) 05/24/2009 MARIO SHRESTHAN, CHERRY T 250.02 DIABETES MELLITUS POORLY CONTROLLED 05/24/2009 MARIO CLEANER AND PREPARER, CHERRY T 272.4 HYPERLIPIDEMIA HYPERLIPOPROTEINEMIAS (Old Classification) 05/24/2009 MARIO CLEANER AND PREPARER, CHERRY T 250.02 DIABETES MELLITUS POORLY CONTROLLED 05/24/2009 MARIO SHRESTHAN, CHERRY T 272.4 HYPERLIPIDEMIA HYPERLIPOPROTEINEMIAS (Old Classification) 05/24/2009 MARIO CLEANER AND PREPARER, CHERRY T 250.02 DIABETES MELLITUS POORLY CONTROLLED 05/24/2009 MARIO CLEANER AND PREPARER, CHERRY T 272.4 HYPERLIPIDEMIA HYPERLIPOPROTEINEMIAS (Old Classification) 05/24/2009 MARIO SHRESTHAN, CHERRY T 250.02 DIABETES MELLITUS POORLY CONTROLLED 05/24/2009 MARIO SHRESTHAN, CHERRY T 272.4 HYPERLIPIDEMIA HYPERLIPOPROTEINEMIAS (Old Classification) 05/24/2009 MARIO SHRESTHAN, CHERRY T 250.02 DIABETES MELLITUS POORLY CONTROLLED 05/24/2009 MARIO SHRESTHANCHERRY T 272.4 HYPERLIPIDEMIA HYPERLIPOPROTEINEMIAS (Old Classification) 06/14/2009 V72.31 Supervisor Parking Lot Exam, Routine 06/14/2009 RIAZ REAL DO V72.31 Supervisor Parking Lot Exam, Routine 06/14/2009 V72.31 Supervisor Parking Lot Exam, Routine 06/14/2009 V72.31 Supervisor Parking Lot Exam, Routine 06/14/2009 V72.31 Supervisor Parking Lot Exam, Routine 06/14/2009 V72.31 Supervisor Parking Lot Exam, Routine 06/14/2009 V72.31 Supervisor Parking Lot Exam, Routine 06/14/2009 V72.31 Supervisor Parking Lot Exam, Routine 06/14/2009 CHERRY MARTIN APRN T V72.31 Supervisor Parking Lot Exam, Routine 06/14/2009 CHERRY MARTIN APRN T V72.31 Supervisor Parking Lot Exam, Routine 06/14/2009 CHERRY MARTIN APRN T V72.31 Supervisor Parking Lot Exam, Routine 06/14/2009 CHERRY MARTIN APRN T V72.31 Supervisor Parking Lot Exam, Routine 06/14/2009 CHERRY MARTIN APRN T V72.31 Supervisor Parking Lot Exam, Routine 06/14/2009 CHERRY MARTIN APRN T V72.31 Supervisor Parking Lot Exam, Routine 06/14/2009 CHERRY MARTIN APRN V72.31 Supervisor Parking Lot Exam, Routine 07/19/2009 V58.69 taking high- risk medication 07/19/2009 RIAZ REAL DO V58.69 taking high-risk medication 07/19/2009 V58.69 taking high- risk medication 07/19/2009 V58.69 taking high- risk medication 07/19/2009 V58.69 taking high- risk medication 07/19/2009 V58.69 taking high- risk medication 07/19/2009 V58.69 taking high- risk medication 07/19/2009 V58.69 taking high- risk medication 07/19/2009 CHERRY MARTIN APRN V58.69 taking [...] DIABETES MELLITUS 08/22/2009 466.0 Acute Bronchitis 08/22/2009 RIAZ REAL DO K 250.00 DIABETES MELLITUS 08/22/2009 ADDIE CHAVEZ RIAZ K 466.0 Acute Bronchitis 08/22/2009 250.00 DIABETES [...] CHERRY MARTIN APRN 250.00 DIABETES MELLITUS 08/22/2009 MARIO CLEANER AND PREPARER, CHERRY T 466.0 Acute Bronchitis 08/22/2009 MARIO CLEANER AND PREPARER, CHERRY T 250.00 DIABETES MELLITUS 08/22/2009 MARIO CLEANER AND PREPARER, CHERRY T 466.0 Acute Bronchitis 08/22/2009 MARIO CLEANER AND PREPARER, CHERRY T 250.00 DIABETES MELLITUS 08/22/2009 MARIO CLEANER AND PREPARER, CHERRY T 466.0 Acute Bronchitis 08/22/2009 MARIO CLEANER AND PREPARER, CHERRY T 250.00 DIABETES MELLITUS 08/22/2009 MARIO CLEANER AND PREPARER, CHERRY T 466.0 Acute Bronchitis 08/22/2009 MARIO CLEANER AND PREPARER, CHERRY T 250.00 DIABETES MELLITUS 08/22/2009 MARIO CLEANER AND PREPARER, CHERRY T 466.0 Acute Bronchitis 11/28/2009 V03.82 Need For Vaccination Pneumococcal 11/28/2009 V04.81 Vaccines Prophylactic Need Against Influenza 11/28/2009 RIAZ REAL DO V03.82 Need For Vaccination Pneumococcal 11/28/2009 RIAZ REAL DO V04.81 Vaccines Prophylactic Need Against Influenza 11/28/2009 [...] Need Against Influenza 11/28/2009 CHERRY MARTIN APRN T V03.82 Need For Vaccination Pneumococcal 11/28/2009 [...] Need Against Influenza 11/28/2009 CHERRY MARTIN APRN T V03.82 Need For Vaccination Pneumococcal 11/28/2009 CHERRY MARTIN APRN T V04.81 Vaccines Prophylactic Need Against Influenza 11/28/2009 CHERRY MARTIN APRN T V03.82 Need For Vaccination Pneumococcal 11/28/2009 CHERRY MARTIN APRN T V04.81 Vaccines Prophylactic Need Against Influenza 11/28/2009 CHERRY MARTIN APRN T V03.82 Need For Vaccination Pneumococcal 11/28/2009 [...] 782.0 Disturbance Of Skin Sensation 02/20/2010 MARIO CLEANER AND PREPARER, CHERRY T 240.9 GOITER UNSPECIFIED 02/20/2010 MARIO CLEANER AND PREPARER, CHERRY T 782.0 Disturbance Of Skin Sensation 02/20/2010 MARIO SHRESTHAN, CHERRY T 240.9 GOITER UNSPECIFIED 02/20/2010 MARIO CLEANER AND PREPARER, CHERRY T 782.0 Disturbance Of Skin Sensation 02/20/2010 MARIO SHRESTHAN, CHERRY T 240.9 GOITER UNSPECIFIED 02/20/2010 MARIO SHRESTHAN, CHERRY T 782.0 Disturbance Of Skin Sensation 03/31/2010 465.9 Upper Respiratory Infection 03/31/2010 786.2 Cough 03/31/2010 REAL DO, IRAZ K 465.9 Upper Respiratory Infection 03/31/2010 REAL DO, RIAZ K 786.2 Cough 03/31/2010 465.9 Upper Respiratory Infection 03/31/2010 786.2 Cough 03/31/2010 465.9 Upper Respiratory Infection 03/31/2010 786.2 Cough 03/31/2010 465.9 Upper Respiratory Infection 03/31/2010 786.2 Cough 03/31/2010 465.9 Upper Respiratory Infection 03/31/2010 786.2 Cough 03/31/2010 465.9 Upper Respiratory Infection 03/31/2010 786.2 Cough 03/31/2010 465.9 Upper Respiratory Infection 03/31/2010 786.2 Cough 03/31/2010 MARIO SHRESTHAN, CHERRY T 465.9 Upper Respiratory Infection 03/31/2010 MARIO SHRESTHAN, CHERRY T 786.2 Cough 03/31/2010 MARIO SHRESTHAN, CHERRY T 465.9 Upper Respiratory Infection 03/31/2010 MARIO SHRESTHAN, CHERRY T 786.2 Cough 03/31/2010 MARIO SHRESTHAN, CHERRY T 465.9 Upper Respiratory Infection 03/31/2010 MARIO CLEANER AND PREPARER, CHERRY T 786.2 Cough 03/31/2010 MARIO CLEANER AND PREPARER, CHERRY T 465.9 Upper Respiratory Infection 03/31/2010 MARIO CLEANER AND PREPARER, CHERRY T 786.2 Cough 03/31/2010 MARIO CLEANER AND PREPARER, CHERRY T 465.9 Upper Respiratory Infection 03/31/2010 MARIO SHRESTHAN, CHERRY T 786.2 Cough 03/31/2010 MARIO SHRESTHAN, CHERRY T 465.9 Upper Respiratory Infection 03/31/2010 MARIO SHRESTHAN, CHERRY T 786.2 Cough 03/31/2010 MARIO SHRESTHAN, CHERRY T 465.9 Upper Respiratory Infection 03/31/2010 MARIO SHRESTHAN, CHERRY T 786.2 Cough 04/17/2010 466.0 Bronchitis, Acute 04/17/2010 REAL DO, RIAZ K 466.0 Bronchitis, Acute 04/17/2010 466.0 Bronchitis, Acute 04/17/2010 466.0 Bronchitis, Acute 04/17/2010 466.0 Bronchitis, Acute 04/17/2010 466.0 Bronchitis, Acute 04/17/2010 466.0 Bronchitis, Acute 04/17/2010 466.0 Bronchitis, Acute 04/17/2010 MARIO CLEANER AND PREPARER, CHERRY T 466.0 Bronchitis, Acute 04/17/2010 MARIO CLEANER AND PREPARER, CHERRY T 466.0 Bronchitis, Acute 04/17/2010 MARIO CLEANER AND PREPARER, CHERRY T 466.0 Bronchitis, Acute 04/17/2010 MARIO CLEANER AND PREPARER, CHERRY T 466.0 Bronchitis, Acute 04/17/2010 MARIO CLEANER AND PREPARER, CHERRY T 466.0 Bronchitis, Acute 04/17/2010 MARIO CLEANER AND PREPARER, CHERRY T 466.0 Bronchitis, Acute 04/17/2010 MARIO CLEANER AND PREPARER, CHERRY T 466.0 Bronchitis, Acute 04/26/2010 Ot 491.9 04/26/2010 Ot 786.2 09/14/2010 719.45 joint pain, localized in the hip 09/14/2010 REAL DO, RIAZ K 719.45 joint pain, localized in the hip 09/14/2010 719.45 joint pain, localized in the hip 09/14/2010 719.45 joint pain, localized in the hip 09/14/2010 719.45 joint pain, localized in the hip 09/14/2010 719.45 joint pain, localized in the hip 09/14/2010 719.45 joint pain, localized in the hip 09/14/2010 719.45 joint pain, localized in the hip 09/14/2010 MARIO CLEANER AND PREPARER, CHERRY T 719.45 joint pain, localized in the hip 09/14/2010 MARIO CLEANER AND PREPARER, CHERRY T 719.45 joint pain, localized in the hip 09/14/2010 MARIO CLEANER AND PREPARER, CHERRY T 719.45 joint pain, localized in the hip 09/14/2010 MARIO CLEANER AND PREPARER, CHERRY T 719.45 joint pain, localized in the hip 09/14/2010 MARIO CLEANER AND PREPARER, CHERRY T 719.45 JOINT PAIN, LOCALIZED IN THE HIP 09/14/2010 MARIO CLEANER AND PREPARER, CHERRY T 719.45 JOINT PAIN, LOCALIZED IN THE HIP 09/14/2010 CHERRY MARTIN APRN 719.45 JOINT PAIN, LOCALIZED IN THE HIP [...] INVOLVING LOWER LEG 06/24/2012 CHERRY MARTIN APRN T 719.46 PAIN IN JOINT INVOLVING LOWER LEG [...] 461.9 SINUSITIS ACUTE 08/01/2012 CHERRY MARTIN APRN 461.9 SINUSITIS ACUTE 04/09/2014 CHERRY OLIVER DO Ot 723.1 04/09/2014 CHERRY OLIVER DO Ot 723.5 04/12/2014 FATIMAH VICK Ot 307.81 04/12/2014 FATIMAH VICK Ot 723.4 04/12/2014 FATIMAH VICK Ot 782.0 04/14/2014 CHERRY MARTIN APRN 723.1 PAIN NECK 04/14/2014 CHERRY MARTIN APRN 723.1 PAIN NECK 08/14/2014 LISS BAGLEY APRN Ot 599.0 08/14/2014 LISS BAGLEY APRN Ot 789.06 10/01/2014 FATIMAH VICK Ot 250.00 10/01/2014 FATIMAH VICK Ot 788.1 10/01/2014 FATIMAH VICK Ot 789.09 10/01/2014 FATIMAH VICK Ot V58.69 01/12/2015 LISS BAGLEY CLEANER AND PREPARER Ot N39.0 01/12/2015 LISS BAGLEY CLEANER AND PREPARER Ot R11.0 01/12/2015 LISS BAGLEY APRN Ot R51 07/14/2015 VENTURA JONES, YADIRA Thornton Ot E11.9 TYPE 2 DIABETES MELLITUS WITHOUT COMPLIC 07/14/2015 VENTURA JONES, YADIRA Thornton Ot K59.00 CONSTIPATION, UNSPECIFIED 07/14/2015 VENTURA JONES, YADIRA Thornton Ot N39.0 URINARY TRACT INFECTION, SITE NOT SPECIF 07/14/2015 VENTURA JONES, YADIRA Thornton Ot Z79.4 LONGTERM (CURRENT) USE OF INSULIN 08/22/2015 LISS BAGLEY CLEANER AND PREPARER Ot R10.12 LEFT UPPER QUADRANT PAIN 08/22/2015 LISS BAGLEY CLEANER AND PREPARER Ot R11.10 VOMITING, UNSPECIFIED 08/24/2015 LISS BAGLEY CLEANER AND PREPARER Ot R10.12 LEFT UPPER QUADRANT PAIN 08/24/2015 LISS BAGLEY CLEANER AND PREPARER Ot R11.10 VOMITING, UNSPECIFIED 11/27/2015 CLARK VICKEN L Ot E11.9 TYPE 2 DIABETES MELLITUS WITHOUT COMPLIC 11/27/2015 FATIMAH VICK L Ot N39.0 URINARY TRACT INFECTION, SITE NOT SPECIF 11/27/2015 FATIMAH VICK L Ot R30.0 DYSURIA 11/27/2015 FATIMAH VICK Ot Z79.4 RADIUS GRINDER (CURRENT) USE OF INSULIN 11/29/2015 FATIMAH VICK L Ot E11.9 TYPE 2 DIABETES MELLITUS WITHOUT COMPLIC 11/29/2015 FATIMAH VICK L Ot N39.0 URINARY TRACT INFECTION, SITE NOT SPECIF 11/29/2015 CLARK VICKEN L Ot R30.0 DYSURIA 11/29/2015 FATIMAH VICK Ot Z79.4 RADIUS GRINDER (CURRENT) USE OF INSULIN 11/29/2015 FATIMAH VICK L Ot E11.9 TYPE 2 DIABETES MELLITUS WITHOUT COMPLIC 11/29/2015 CLARK VICKEN L Ot N39.0 URINARY TRACT INFECTION, SITE NOT SPECIF 11/29/2015 CLARK VICKEN L Ot R30.0 DYSURIA 11/29/2015 CLARK VICKEN L Ot Z79.4 RADIUS GRINDER (CURRENT) USE OF INSULIN 11/30/2015 CLARK VICKEN L Ot E11.9 TYPE 2 DIABETES MELLITUS WITHOUT COMPLIC 11/30/2015 CLARK VICKEN L Ot N39.0 URINARY TRACT INFECTION, SITE NOT SPECIF 11/30/2015 CLARK VICKEN L Ot R30.0 DYSURIA 11/30/2015 CLARK VICKEN L Ot Z79.4 LONGTERM (CURRENT) USE OF INSULIN 12/13/2015 FATIMAH VICK L Ot E11.9 TYPE 2 DIABETES MELLITUS WITHOUT COMPLIC 12/13/2015 FATIMAH VICK Ot N39.0 URINARY TRACT INFECTION, SITE NOT SPECIF 12/13/2015 FATIMAH VICK L Ot R10.84 GENERALIZED ABDOMINAL PAIN 12/13/2015 FATIMAH VICK L Ot R11.0 NAUSEA 12/13/2015 FATIMAH VICK L Ot R14.0 ABDOMINAL DISTENSION (GASEOUS) 12/13/2015 FATIMAH VICK Ot Z79.4 RADIUS GRINDER (CURRENT) USE OF INSULIN 12/14/2015 FATIMAH VICK Ot E11.9 TYPE 2 DIABETES MELLITUS WITHOUT COMPLIC 12/14/2015 FATIMAH VICK Ot N39.0 URINARY TRACT INFECTION, SITE NOT SPECIF 12/14/2015 FATIMAH VICK L Ot R10.84 GENERALIZED ABDOMINAL PAIN 12/14/2015 FATIMAH VICK L Ot R11.0 NAUSEA 12/14/2015 FATIMAH VICK L Ot R14.0 ABDOMINAL DISTENSION (GASEOUS) 12/14/2015 FATIMAH VICK Ot Z79.4 LONGTERM (CURRENT) USE OF INSULIN 12/19/2015 CHERRY MARTIN CAR SALESPERSON Ot R10.11 RIGHT UPPER QUADRANT PAIN 12/21/2015 CHERRY MARTIN CAR SALESPERSON Ot R10.11 RIGHT UPPER QUADRANT PAIN 12/30/2015 CHERRY MARTIN CAR SALESPERSON Ot R10.11 RIGHT UPPER QUADRANT PAIN 01/26/2016 FATIMAH VICK Ot E11.9 TYPE 2 DIABETES MELLITUS WITHOUT COMPLIC 01/26/2016 FATIMAH VICK Ot N39.0 URINARY TRACT INFECTION, SITE NOT SPECIF 01/26/2016 FATIMAH VICK Ot R10.84 GENERALIZED ABDOMINAL PAIN 01/26/2016 FATIMAH VICK L Ot R11.0 NAUSEA 01/26/2016 FATIMAH VICK L Ot R14.0 ABDOMINAL DISTENSION (GASEOUS) 01/26/2016 FATIMAH VICK Ot Z79.4 RADIUS GRINDER (CURRENT) USE OF INSULIN 02/16/2016 CHERRY MARTIN CAR SALESPERSON Ot R10.11 RIGHT UPPER QUADRANT PAIN 02/16/2016 CHERRY MARTIN CAR SALESPERSON Ot R10.11 RIGHT UPPER QUADRANT PAIN 02/17/2016 [facility], ADRIENNE D Ot K21.9 GASTRO-ESOPHAGEAL REFLUX DISEASE WITHOUT 02/17/2016 BR[facility]TON DIA CHAVEZTT D Ot Z01.818 ENCOUNTER FOR OTHER PREPROCEDURAL EXAMIN 02/22/2016 BRITTON DODIATT D Ot E11.9 TYPE 2 DIABETES MELLITUS WITHOUT COMPLIC 02/22/2016 [facility] DO ADRIENNE D Ot K29.70 GASTRITIS, UNSPECIFIED, WITHOUT BLEEDING 02/22/2016 BRITTON DO, ADRIENNE D Ot K44.9 DIAPHRAGMATIC HERNIA WITHOUT OBSTRUCTION 02/22/2016 BRITTON DO, ADRIENNE D Ot Z79.84 RADIUS GRINDER (CURRENT) USE OF ORAL HYPOGLYC 03/03/2016 ELSY DO, NOEL K Ot E11.9 TYPE 2 DIABETES MELLITUS WITHOUT COMPLIC 03/03/2016 ELSY DO, NOEL K Ot J02.9 ACUTE PHARYNGITIS, UNSPECIFIED 03/03/2016 ELSY DO, NOEL K Ot R05 COUGH 03/03/2016 ELSY DO, NOEL K Ot Z79.4 RADIUS GRINDER (CURRENT) USE OF INSULIN 03/03/2016 ELSY DO, NOEL K Ot Z79.84 RADIUS GRINDER (CURRENT) USE OF ORAL HYPOGLYC 03/06/2016 ELSY DO, NOEL K Ot E11.9 TYPE 2 DIABETES MELLITUS WITHOUT COMPLIC 03/06/2016 ELSY DO, NOEL K Ot J02.9 ACUTE PHARYNGITIS, UNSPECIFIED 03/06/2016 ELSY DO, NOEL K Ot R05 COUGH 03/06/2016 ELSY DO, NOEL K Ot Z79.4 RADIUS GRINDER (CURRENT) USE OF INSULIN 03/06/2016 ELSY DO, NOEL K Ot Z79.84 LONGTERM (CURRENT) USE OF ORAL HYPOGLYC 03/08/2016 BR[facility] DO ADRIENNE D Ot E11.9 TYPE 2 DIABETES MELLITUS WITHOUT COMPLIC 03/08/2016 BRITTON DO ADRIENNE D Ot K29.70 GASTRITIS, UNSPECIFIED, WITHOUT BLEEDING 03/08/2016 BRITTON DO ADRIENNE D Ot K44.9 DIAPHRAGMATIC HERNIA WITHOUT OBSTRUCTION 03/08/2016 BRITTON DO ADRIENNE D Ot Z79.84 RADIUS GRINDER (CURRENT) USE OF ORAL HYPOGLYC 03/10/2016 LISS BAGLEY APRN Ot E11.9 TYPE 2 DIABETES MELLITUS WITHOUT COMPLIC 03/10/2016 BAGLEY, PETER J CLEANER AND PREPARER Ot I10 ESSENTIAL (PRIMARY) HYPERTENSION 03/10/2016 LISS BAGLEY CLEANER AND PREPARER Ot J40 BRONCHITIS, NOT SPECIFIED ACUTE OR CH 03/10/2016 LISS BAGLYE CLEANER AND PREPARER Ot R05 COUGH 03/10/2016 LISS BAGLEY CLEANER AND PREPARER Ot Z79.4 RADIUS GRINDER (CURRENT) USE OF INSULIN 03/10/2016 LISS BAGLEY APRN Ot Z79.84 RADIUS GRINDER (CURRENT) USE OF ORAL HYPOGLYC 03/10/2016 LISS BAGLEY APRN Ot Z79.899 OTHER LONGTERM (CURRENT) DRUG THERAPY 03/13/2016 BRITTON DODIATT D Ot E11.9 TYPE 2 DIABETES MELLITUS WITHOUT COMPLIC 03/13/2016 BRITTON DO ADRIENNE D Ot K29.70 GASTRITIS, UNSPECIFIED, WITHOUT BLEEDING 03/13/2016 BRITTON DODIATT D Ot K44.9 DIAPHRAGMATIC HERNIA WITHOUT OBSTRUCTION 03/13/2016 BRITTON DOADRIENNE D Ot Z79.84 RADIUS GRINDER (CURRENT) USE OF ORAL HYPOGLYC 03/14/2016 LISS BAGLEY APRN Ot E11.9 TYPE 2 DIABETES MELLITUS WITHOUT COMPLIC 03/14/2016 LISS BAGLEY APRN Ot I10 ESSENTIAL (PRIMARY) HYPERTENSION 03/14/2016 LISS BAGLEY APRN Ot J40 BRONCHITIS, NOT SPECIFIED ACUTE OR CH 03/14/2016 LISS BAGLEY APRN Ot R05 COUGH 03/14/2016 LISS BAGLEY APRN Ot Z79.4 RADIUS GRINDER (CURRENT) USE OF INSULIN 03/14/2016 LISS BAGLEY APRN Ot Z79.84 RADIUS GRINDER (CURRENT) USE OF ORAL HYPOGLYC 03/14/2016 LISS BAGLEY APRN Ot Z79.899 OTHER LONGTERM (CURRENT) DRUG THERAPY 04/05/2016 WILEY AMBRIZ MD Ot E11.9 TYPE 2 DIABETES MELLITUS WITHOUT COMPLIC 04/05/2016 WILEY AMBRIZ MD Ot J40 BRONCHITIS, NOT SPECIFIED ACUTE OR CH 04/05/2016 WILEY AMBRIZ MD Ot K44.9 DIAPHRAGMATIC HERNIA WITHOUT OBSTRUCTION 04/05/2016 WILEY AMBRIZ MD Ot R10.10 UPPER ABDOMINAL PAIN, UNSPECIFIED 04/05/2016 WILEY AMBRIZ MD Ot R10.13 EPIGASTRIC PAIN 04/05/2016 WILEY AMBRIZ MD Ot Z79.4 LONGTERM (CURRENT) USE OF INSULIN 04/05/2016 WILEY AMBRIZ MD Ot Z79.84 LONGTERM (CURRENT) USE OF ORAL HYPOGLYC 04/05/2016 WILEY AMBRIZ MD Ot Z79.899 OTHER LONGTERM (CURRENT) DRUG THERAPY 04/05/2016 WILEY AMBRIZ MD Ot E11.9 TYPE 2 DIABETES MELLITUS WITHOUT COMPLIC 04/05/2016 WILEY AMBRIZ MD Ot J40 BRONCHITIS, NOT SPECIFIED ACUTE OR CH 04/05/2016 WILEY AMBRIZ MD Ot K44.9 DIAPHRAGMATIC HERNIA WITHOUT OBSTRUCTION 04/05/2016 WILEY AMBRIZ MD Ot R10.10 UPPER ABDOMINAL PAIN, UNSPECIFIED 04/05/2016 WILEY AMBRIZ MD Ot R10.13 EPIGASTRIC PAIN 04/05/2016 WILEY AMBRIZ MD Ot Z79.4 RADIUS GRINDER (CURRENT) USE OF INSULIN 04/05/2016 WILEY AMBRIZ MD Ot Z79.84 RADIUS GRINDER (CURRENT) USE OF ORAL HYPOGLYC 04/05/2016 WILEY AMBRIZ MD, Ot Z79.899 OTHER RADIUS GRINDER (CURRENT) DRUG THERAPY 04/16/2016 LISS BAGLEY APRN Ot E11.9 TYPE 2 DIABETES MELLITUS WITHOUT COMPLIC 04/16/2016 LISS BAGLEY APRN Ot J40 BRONCHITIS, NOT SPECIFIED ACUTE OR CH 04/16/2016 LISS BAGLEY APRN Ot J45.909 UNSPECIFIED ASTHMA, UNCOMPLICATED 04/16/2016 LISS BAGLEY APRN Ot Z79.84 RADIUS GRINDER (CURRENT) USE OF ORAL HYPOGLYC 04/16/2016 LISS BAGLEY APRN Ot Z79.899 OTHER LONGTERM (CURRENT) DRUG THERAPY 04/17/2016 LISS BAGLEY APRN Ot E11.9 TYPE 2 DIABETES MELLITUS WITHOUT COMPLIC 04/17/2016 LISS BAGLEY APRN Ot J40 BRONCHITIS, NOT SPECIFIED ACUTE OR CH 04/17/2016 LISS BAGLEY APRN Ot J45.909 UNSPECIFIED ASTHMA, UNCOMPLICATED 04/17/2016 LISS BAGLEY APRN Ot Z79.84 RADIUS GRINDER (CURRENT) USE OF ORAL HYPOGLYC 04/17/2016 LISS BAGLEY APRN Ot Z79.899 OTHER LONGTERM (CURRENT) DRUG THERAPY 04/23/2016 WILEY AMBRIZ MD Ot E11.65 TYPE 2 DIABETES MELLITUS WITH HYPERGLYCE 04/23/2016 WILEY AMBRIZ MD, Ot K44.9 DIAPHRAGMATIC HERNIA WITHOUT OBSTRUCTION 04/23/2016 WILEY AMBRIZ MD Ot R10.13 EPIGASTRIC PAIN 04/23/2016 WILEY AMBRIZ MD Ot R11.2 NAUSEA WITH VOMITING, UNSPECIFIED 04/23/2016 WILEY AMBRIZ MD Ot Z79.4 RADIUS GRINDER (CURRENT) USE OF INSULIN 04/23/2016 WILEY AMBRIZ MD Ot Z79.84 LONGTERM (CURRENT) USE OF ORAL HYPOGLYC 04/23/2016 WILEY AMBRIZ MD, Ot Z79.899 OTHER LONGTERM (CURRENT) DRUG THERAPY 04/23/2016 WILEY AMBRIZ MD Ot E11.65 TYPE 2 DIABETES MELLITUS WITH HYPERGLYCE 04/23/2016 WILEY AMBRIZ MD, Ot K44.9 DIAPHRAGMATIC HERNIA WITHOUT OBSTRUCTION 04/23/2016 WILEY AMBRIZ MD Ot R10.13 EPIGASTRIC PAIN 04/23/2016 WILEY AMBRIZ MD Ot R11.2 NAUSEA WITH VOMITING, UNSPECIFIED 04/23/2016 WILEY AMBRIZ MD Ot Z79.4 RADIUS GRINDER (CURRENT) USE OF INSULIN 04/23/2016 WILEY AMBRIZ MD Ot Z79.84 RADIUS GRINDER (CURRENT) USE OF ORAL HYPOGLYC 04/23/2016 WILEY AMBRIZ MD Ot Z79.899 OTHER LONGTERM (CURRENT) DRUG THERAPY 04/27/2016 WILEY AMBRIZ MD, Ot E11.65 TYPE 2 DIABETES MELLITUS WITH HYPERGLYCE 04/27/2016 WILEY AMBRIZ MD, Ot K44.9 DIAPHRAGMATIC HERNIA WITHOUT OBSTRUCTION 04/27/2016 WILEY AMBRIZ MD Ot R10.13 EPIGASTRIC PAIN 04/27/2016 WILEY AMBRIZ MD Ot R11.2 NAUSEA WITH VOMITING, UNSPECIFIED 04/27/2016 WILEY AMBRIZ MD Ot Z79.4 RADIUS GRINDER (CURRENT) USE OF INSULIN 04/27/2016 WILEY AMBRIZ MD Ot Z79.84 RADIUS GRINDER (CURRENT) USE OF ORAL HYPOGLYC 04/27/2016 KATINA JONES, WILEY Mancini Ot Z79.899 OTHER RADIUS GRINDER (CURRENT) DRUG THERAPY 05/24/2016 KRISTA, CASSANDRA E CLEANER AND PREPARER Ot J45.909 UNSPECIFIED ASTHMA, UNCOMPLICATED 05/24/2016 KRISTA, CASSANDRA E CLEANER AND PREPARER Ot R05 COUGH 05/24/2016 KRISTA, CASSANDRA E CLEANER AND PREPARER Ot R06.00 DYSPNEA, UNSPECIFIED 05/24/2016 KRISTA, CASSANDRA E CLEANER AND PREPARER Ot J45.909 UNSPECIFIED ASTHMA, UNCOMPLICATED 05/24/2016 KRISTA, CASSANDRA E CLEANER AND PREPARER Ot R05 COUGH 05/24/2016 KRISTA, CASSANDRA E CLEANER AND PREPARER Ot R06.00 DYSPNEA, UNSPECIFIED 06/04/2016 KRISTA, CASSANDRA E CLEANER AND PREPARER Ot J45.909 UNSPECIFIED ASTHMA, UNCOMPLICATED 06/04/2016 KRISTA, CASSANDRA E CLEANER AND PREPARER Ot R05 COUGH 06/04/2016 KRISTA, CASSANDRA E CLEANER AND PREPARER Ot R06.00 DYSPNEA, UNSPECIFIED 06/09/2016 VALERIE CAMPOVERDE [...] UNSPECIFIED 06/09/2016 VALERIE CAMPOVERDE MD Ot Z79.4 RADIUS GRINDER (CURRENT) USE OF INSULIN 06/09/2016 VALERIE CAMPOVERDE MD Ot E11.9 TYPE 2 DIABETES MELLITUS WITHOUT COMPLIC 06/09/2016 VALERIE CAMPOVERDE MD Ot J45.909 UNSPECIFIED ASTHMA, UNCOMPLICATED 06/09/2016 VALERIE CAMPOVERDE MD Ot K44.9 DIAPHRAGMATIC HERNIA WITHOUT OBSTRUCTION 06/09/2016 VALERIE CAMPOVERDE MD Ot K56.7 ILEUS, UNSPECIFIED 06/09/2016 VALERIE CAMPOVERDE MD Ot R10.13 EPIGASTRIC PAIN 06/09/2016 VALERIE CAMPOVERDE MD Ot R11.2 NAUSEA WITH VOMITING, UNSPECIFIED 06/09/2016 GILLES JONES, VALERIE Calabrese Ot Z79.4 RADIUS GRINDER (CURRENT) USE OF INSULIN 07/18/2016 ADAN COLLIER MD Ot K21.9 GASTRO-ESOPHAGEAL REFLUX DISEASE WITHOUT 07/18/2016 ADAN COLLIER MD Ot R13.10 DYSPHAGIA, UNSPECIFIED 07/18/2016 ADAN COLLIER MD Ot Z01.812 ENCOUNTER FOR PREPROCEDURAL LABORATORY E 07/18/2016 ADAN COLLIER MD Ot Z11.2 ENCOUNTER FOR SCREENING FOR OTHER BACTER 07/18/2016 ADAN COLLIER MD Ot K21.9 GASTRO-ESOPHAGEAL REFLUX DISEASE WITHOUT 07/18/2016 ADAN COLLIER MD Ot R13.10 DYSPHAGIA, UNSPECIFIED 07/18/2016 ADAN COLLIER MD Ot Z01.812 ENCOUNTER FOR PREPROCEDURAL LABORATORY E 07/18/2016 ADAN COLLIER MD Ot Z11.2 ENCOUNTER FOR SCREENING FOR OTHER BACTER 07/24/2016 ADAN COLLIER MD Ot K21.9 GASTRO-ESOPHAGEAL REFLUX DISEASE WITHOUT 07/24/2016 ADAN COLLIER MD Ot R13.10 DYSPHAGIA, UNSPECIFIED 07/24/2016 ADAN COLLIER MD Ot Z01.812 ENCOUNTER FOR PREPROCEDURAL LABORATORY E 07/24/2016 ADAN COLLIER MD Ot Z11.2 ENCOUNTER FOR SCREENING FOR OTHER BACTER 07/25/2016 CASSANDRA VELASCO CLEANER AND PREPARER Ot J45.909 UNSPECIFIED ASTHMA, UNCOMPLICATED 07/25/2016 CASSANDRA VELASCO CLEANER AND PREPARER Ot R05 COUGH 07/25/2016 CASSANDRA VELASCO CLEANER AND PREPARER Ot R06.00 DYSPNEA, UNSPECIFIED 07/26/2016 ADAN COLLIER MD Ot E66.9 OBESITY, UNSPECIFIED 07/26/2016 ADAN COLLIER MD Ot E78.5 HYPERLIPIDEMIA, UNSPECIFIED 07/26/2016 ADAN COLLIER MD Ot J45.909 UNSPECIFIED ASTHMA, UNCOMPLICATED 07/26/2016 ADAN COLLIER MD Ot K21.9 GASTRO-ESOPHAGEAL REFLUX DISEASE WITHOUT 07/26/2016 ADAN COLLIER MD Ot Z68.34 BODY MASS INDEX (BMI) 34.0-34.9, ADULT 07/26/2016 NANDO JONES, ADAN M Ot Z79.899 OTHER LONGTERM (CURRENT) DRUG THERAPY 07/26/2016 ADAN COLLIER MD M Ot E66.9 OBESITY, UNSPECIFIED 07/26/2016 NANDO JONES, ADAN M Ot E78.5 HYPERLIPIDEMIA, UNSPECIFIED 07/26/2016 NANDO JONES, ADAN M Ot J45.909 UNSPECIFIED ASTHMA, UNCOMPLICATED 07/26/2016 NANDO JONES, ADAN M Ot K21.9 GASTRO-ESOPHAGEAL REFLUX DISEASE WITHOUT 07/26/2016 NANDO JONES, ADAN M Ot Z68.34 BODY MASS INDEX (BMI) 34.0-34.9, ADULT 07/26/2016 ADAN COLLIER MD M Ot Z79.899 OTHER RADIUS GRINDER (CURRENT) DRUG THERAPY 07/27/2016 ADAN COLLIER MD M Ot E66.9 OBESITY, UNSPECIFIED 07/27/2016 ADAN COLLIER MD M Ot E78.5 HYPERLIPIDEMIA, UNSPECIFIED 07/27/2016 ADAN COLLIER MD M Ot J45.909 UNSPECIFIED ASTHMA, UNCOMPLICATED 07/27/2016 NANDO JONES, ADAN M Ot K21.9 GASTRO-ESOPHAGEAL REFLUX DISEASE WITHOUT 07/27/2016 ADAN COLLIER MD Ot Z68.34 BODY MASS INDEX (BMI) 34.0-34.9, ADULT 07/27/2016 ADAN COLLIER MD M Ot Z79.899 OTHER RADIUS GRINDER (CURRENT) DRUG THERAPY 07/31/2016 ADAN COLLIER MD Ot E66.9 OBESITY, UNSPECIFIED 07/31/2016 ADAN COLLIER MD M Ot E78.5 HYPERLIPIDEMIA, UNSPECIFIED 07/31/2016 NANDO JONES, ADAN M Ot J45.909 UNSPECIFIED ASTHMA, UNCOMPLICATED 07/31/2016 NANDO JONES, ADAN M Ot K21.9 GASTRO-ESOPHAGEAL REFLUX DISEASE WITHOUT 07/31/2016 ADAN COLLIER MD M Ot Z68.34 BODY MASS INDEX (BMI) 34.0-34.9, ADULT 07/31/2016 ADAN COLLIER MD M Ot Z79.899 OTHER LONGTERM (CURRENT) DRUG THERAPY 08/01/2016 ADAN COLLIER MD Ot E66.9 OBESITY, UNSPECIFIED 08/01/2016 ADAN COLLIER MD M Ot E78.5 HYPERLIPIDEMIA, UNSPECIFIED 08/01/2016 NANDO JONES, ADAN Betancourt Ot J45.909 UNSPECIFIED ASTHMA, UNCOMPLICATED 08/01/2016 ADAN COLLIER MD Ot K21.9 GASTRO-ESOPHAGEAL REFLUX DISEASE WITHOUT 08/01/2016 ADAN COLLIER MD Ot Z68.34 BODY MASS INDEX (BMI) 34.0-34.9, ADULT 08/01/2016 ADAN COLLIER MD Ot Z79.899 OTHER RADIUS GRINDER (CURRENT) DRUG THERAPY 08/01/2016 ADAN COLLIER MD Ot D62 ACUTE POSTHEMORRHAGIC ANEMIA 08/01/2016 ADAN COLLIER MD Ot E11.9 TYPE 2 DIABETES MELLITUS WITHOUT COMPLIC 08/01/2016 ADAN COLLIER MD Ot E66.9 OBESITY, UNSPECIFIED 08/01/2016 ADAN COLLIER MD Ot E87.6 HYPOKALEMIA 08/01/2016 ADAN COLLIER MD Ot J98.11 ATELECTASIS 08/01/2016 ADAN COLLIER MD Ot K21.9 GASTRO-ESOPHAGEAL REFLUX DISEASE WITHOUT 08/01/2016 ADAN COLLIER MD Ot K44.9 DIAPHRAGMATIC HERNIA WITHOUT OBSTRUCTION 08/01/2016 ADAN COLLIER MD Ot K56.7 ILEUS, UNSPECIFIED 08/01/2016 ADAN COLLIER MD Ot K59.00 CONSTIPATION, UNSPECIFIED 08/01/2016 ADAN COLLIER MD Ot Z68.34 BODY MASS INDEX (BMI) 34.0-34.9, ADULT 08/01/2016 ADAN COLLIER MD Ot Z79.4 LONGTERM (CURRENT) USE OF INSULIN 08/01/2016 ADAN COLLIER MD Ot Z82.49 FAMILY HX OF ISCHEM HEART DIS AND OTH DI 09/28/2016 CASSANDRA VELASCO APRN Ot J18.9 PNEUMONIA, UNSPECIFIED ORGANISM 12/03/2016 WILEY AMBRIZ MD, Ot E11.9 TYPE 2 DIABETES MELLITUS WITHOUT COMPLIC 12/03/2016 WILEY AMBRIZ MD, Ot E78.00 PURE HYPERCHOLESTEROLEMIA, UNSPECIFIED 12/03/2016 WILEY AMBRIZ MD, Ot J45.909 UNSPECIFIED ASTHMA, UNCOMPLICATED 12/03/2016 KATINA MD, WILEY D Ot K21.9 GASTRO-ESOPHAGEAL REFLUX DISEASE WITHOUT 12/03/2016 WILEY AMBRIZ MD Ot M19.90 UNSPECIFIED OSTEOARTHRITIS, UNSPECIFIED 12/03/2016 WILEY AMBRIZ MD, Ot N39.0 URINARY TRACT INFECTION, SITE NOT SPECIF 12/03/2016 WILEY AMBRIZ MD Ot R10.11 RIGHT UPPER QUADRANT PAIN 12/03/2016 WILEY AMBRIZ MD Ot Z79.4 LONGTERM (CURRENT) USE OF INSULIN 12/03/2016 WILEY AMBRIZ MD Ot Z79.84 RADIUS GRINDER (CURRENT) USE OF ORAL HYPOGLYC 12/03/2016 WILEY AMBRIZ MD Ot Z80.6 FAMILY HISTORY OF LEUKEMIA 12/03/2016 WILEY AMBRIZ MD, Ot Z82.49 FAMILY HX OF ISCHEM HEART DIS AND OTH DI 12/03/2016 WILEY AMBRIZ MD Ot Z87.19 PERSONAL HISTORY OF OTHER DISEASES OF 12/04/2016 WILEY AMBRIZ MD Ot E11.9 TYPE 2 DIABETES MELLITUS WITHOUT COMPLIC 12/04/2016 WILEY AMBRIZ MD Ot E78.00 PURE HYPERCHOLESTEROLEMIA, UNSPECIFIED 12/04/2016 WILEY AMBRIZ MD Ot J45.909 UNSPECIFIED ASTHMA, UNCOMPLICATED 12/04/2016 WILEY AMBRIZ MD, Ot K21.9 GASTRO-ESOPHAGEAL REFLUX DISEASE WITHOUT 12/04/2016 WILEY AMBRIZ MD Ot M19.90 UNSPECIFIED OSTEOARTHRITIS, UNSPECIFIED 12/04/2016 WILEY AMBRIZ MD Ot N39.0 URINARY TRACT INFECTION, SITE NOT SPECIF 12/04/2016 WILEY AMBRIZ MD Ot R10.11 RIGHT UPPER QUADRANT PAIN 12/04/2016 WILEY AMBRIZ MD Ot Z79.4 LONGTERM (CURRENT) USE OF INSULIN 12/04/2016 WILEY AMBRIZ MD Ot Z79.84 LONGTERM (CURRENT) USE OF ORAL HYPOGLYC 12/04/2016 WILEY AMBRIZ MD Ot Z80.6 FAMILY HISTORY OF LEUKEMIA 12/04/2016 WILEY AMBRIZ MD Ot Z82.49 FAMILY HX OF ISCHEM HEART DIS AND OTH DI 12/04/2016 WILEY AMBRIZ MD Ot Z87.19 PERSONAL HISTORY OF OTHER DISEASES OF 01/11/2017 NANDO JONES, ADAN Betancourt Ot D50.9 IRON DEFICIENCY ANEMIA, UNSPECIFIED 01/11/2017 ADAN COLLIER MD Ot R13.10 DYSPHAGIA, UNSPECIFIED 01/11/2017 ADAN COLLIER MD Ot R93.3 ABNORMAL FINDINGS ON DX IMAGING OF PRT D 01/11/2017 ADAN COLLIER MD Ot Z01.818 ENCOUNTER FOR OTHER PREPROCEDURAL EXAMIN 01/11/2017 ADAN COLLIER MD Ot D50.9 IRON DEFICIENCY ANEMIA, UNSPECIFIED 01/11/2017 ADAN COLLIER MD Ot R13.10 DYSPHAGIA, UNSPECIFIED 01/11/2017 ADAN COLLIER MD Ot R93.3 ABNORMAL FINDINGS ON DX IMAGING OF PRT D 01/11/2017 ADAN COLLIER MD Ot Z01.818 ENCOUNTER FOR OTHER PREPROCEDURAL EXAMIN 01/14/2017 ADAN COLLIER MD Ot E11.9 TYPE 2 DIABETES MELLITUS WITHOUT COMPLIC 01/14/2017 ADAN COLLIER MD Ot E78.00 PURE HYPERCHOLESTEROLEMIA, UNSPECIFIED 01/14/2017 ADAN COLLIER MD Ot K21.9 GASTRO-ESOPHAGEAL REFLUX DISEASE WITHOUT 01/14/2017 ADAN COLLIER MD Ot K22.2 ESOPHAGEAL OBSTRUCTION 01/14/2017 ADAN COLLIER MD Ot K44.9 DIAPHRAGMATIC HERNIA WITHOUT OBSTRUCTION 01/14/2017 ADAN COLLIER MD Ot K57.30 DVRTCLOS OF LG INT W/O PERFORATION OR AB 01/14/2017 ADAN COLLIER MD Ot K63.5 POLYP OF COLON 01/14/2017 ADAN COLLIER MD Ot Z79.4 LONGTERM (CURRENT) USE OF INSULIN 01/18/2017 ADAN COLLIER MD Ot E11.9 TYPE 2 DIABETES MELLITUS WITHOUT COMPLIC 01/18/2017 ADAN COLLIER MD Ot E78.00 PURE HYPERCHOLESTEROLEMIA, UNSPECIFIED 01/18/2017 ADAN COLLIER MD Ot K21.9 GASTRO-ESOPHAGEAL REFLUX DISEASE WITHOUT 01/18/2017 ADAN COLLIER MD Ot K22.2 ESOPHAGEAL OBSTRUCTION 01/18/2017 ADAN COLLIER MD Ot K44.9 DIAPHRAGMATIC HERNIA WITHOUT OBSTRUCTION 01/18/2017 ADAN COLLIER MD Ot K57.30 DVRTCLOS OF LG INT W/O PERFORATION OR AB 01/18/2017 NANDO JONES, ADAN Betancourt Ot K63.5 POLYP OF COLON 01/18/2017 ADAN COLLIER MD Ot Z79.4 LONGTERM (CURRENT) USE OF INSULIN 08/13/2017 CASSANDRA VELASCO CLEANER AND PREPARER Ot J45.909 UNSPECIFIED ASTHMA, UNCOMPLICATED 08/13/2017 KRISTA CASSANDRA E CLE[employer]ER AND PREPARER Ot R05 COUGH 08/13/2017 KRISTA, CASSANDRA E CLEANER AND PREPARER Ot R06.00 DYSPNEA, UNSPECIFIED 08/13/2017 KRISTA, CASSANDRA E CLE[employer]ER AND PREPARER Ot J18.9 PNEUMONIA, UNSPECIFIED ORGANISM 08/14/2017 KRISTATYRONE CUELLARINE E CLEANER AND PREPARER Ot J45.909 UNSPECIFIED ASTHMA, UNCOMPLICATED 08/14/2017 KRISTA CASSANDRA E CLE[employer]ER AND PREPARER Ot R05 COUGH 08/14/2017 KRISTATYRONE CUELLARINE E CLEANER AND PREPARER Ot R06.00 DYSPNEA, UNSPECIFIED 08/14/2017 KRISTATYRONE CUELLARINE E CLEANER AND PREPARER Ot J18.9 PNEUMONIA, UNSPECIFIED ORGANISM 08/15/2017 RENEA STAHL CLEANER AND PREPARER Ot Z12.31 ENCNTR SCREEN MAMMOGRAM FOR MALIGNANT NE 08/20/2017 RENEA STAHL R CLE[employer]ER AND PREPARER Ot Z12.31 ENCNTR SCREEN MAMMOGRAM FOR MALIGNANT NE 09/09/2017 RENEA STAHL CLE[employer]ER AND PREPARER Ot R92.8 OTH ABN AND INCONCLUSIVE FINDINGS ON DX 09/25/2017 RENEA STAHL CLE[employer]ER AND PREPARER Ot R92.8 OTH ABN AND INCONCLUSIVE FINDINGS ON DX 10/04/2017 RENEA STAHL CLEANER AND PREPARER Ot 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 10/04/2017 RENEA STAHL CLEANER AND PREPARER Ot N60.22 FIBROADENOSIS OF LEFT BREAST 10/04/2017 RENEA STAHL R CLEANER AND PREPARER Ot N60.92 UNSPECIFIED BENIGN MAMMARY DYSPLASIA OF 10/04/2017 RENEA STAHL CLEANER AND PREPARER Ot 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 10/04/2017 RENEA STAHL CLEANER AND PREPARER Ot N60.22 FIBROADENOSIS OF LEFT BREAST 10/04/2017 RENEA STAHL CLEANER AND PREPARER Ot N60.92 UNSPECIFIED BENIGN MAMMARY DYSPLASIA OF 10/20/2017 Ot E11.9 TYPE 2 DIABETES MELLITUS WITHOUT COMPLIC 10/20/2017 Ot E78.00 PURE HYPERCHOLESTEROLEMIA, UNSPECIFIED 10/20/2017 Ot J45.909 UNSPECIFIED ASTHMA, UNCOMPLICATED 10/20/2017 Ot K21.9 GASTRO- ESOPHAGEAL REFLUX DISEASE WITHOUT 10/20/2017 Ot N39.0 URINARY TRACT INFECTION, SITE NOT SPECIF 10/20/2017 Ot Z79.4 LONGTERM ( CURRENT) USE OF INSULIN 10/20/2017 Ot Z79.51 RADIUS GRINDER ( CURRENT) USE OF INHALED STERO 10/20/2017 Ot Z80.6 FAMILY HISTORY OF LEUKEMIA 10/20/2017 Ot Z82.49 FAMILY HX OF ISCHEM HEART DIS AND OTH DI 10/20/2017 Ot Z87.19 PERSONAL HISTORY OF OTHER DISEASES OF TH 10/20/2017 Ot Z87.440 PERSONAL HISTORY OF URINARY (TRACT) INFE 10/20/2017 Ot Z88.0 ALLERGY STATUS TO PENICILLIN 10/20/2017 Ot Z88.8 ALLERGY STATUS TO OTH DRUG/MEDS/BIOL SUB 01/18/2018 CASSANDRA VELASCO CLEANER AND PREPARER Ot J45.909 UNSPECIFIED ASTHMA, UNCOMPLICATED 01/18/2018 CASSANDRA VELASCO CLEANER AND PREPARER Ot R05 COUGH 01/18/2018 CASSANDRA VELASCO CLEANER AND PREPARER Ot R06.00 DYSPNEA, UNSPECIFIED 01/18/2018 CASSANDRA VELASCO CLEANER AND PREPARER Ot J18.9 PNEUMONIA, UNSPECIFIED ORGANISM 01/18/2018 RENEA STAHL CLEANER AND PREPARER Ot Z12.31 ENCNTR SCREEN MAMMOGRAM FOR MALIGNANT NE 01/18/2018 RENEA STAHL APRN Ot R92.8 OTH ABN AND INCONCLUSIVE FINDINGS ON DX 01/18/2018 RENEA STAHL CLEANER AND PREPARER Ot 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 01/18/2018 RENEA STAHL CLEANER AND PREPARER Ot N60.22 FIBROADENOSIS OF LEFT BREAST 01/18/2018 RENEA STAHL CLEANER AND PREPARER Ot N60.92 UNSPECIFIED BENIGN MAMMARY DYSPLASIA OF 01/19/2018 ELSY DO NOEL K Ot E11.9 TYPE 2 DIABETES MELLITUS WITHOUT COMPLIC 01/19/2018 ELSY DO NOEL K Ot E78.00 PURE HYPERCHOLESTEROLEMIA, UNSPECIFIED 01/19/2018 ELSY DO NOEL K Ot J45.909 UNSPECIFIED ASTHMA, UNCOMPLICATED 01/19/2018 NOEL CHIN DO Ot K21.9 GASTRO-ESOPHAGEAL REFLUX DISEASE WITHOUT 01/19/2018 NOEL CHIN DO K Ot M25.461 EFFUSION, RIGHT KNEE 01/19/2018 NOEL CHIN DO K Ot M25.561 PAIN IN RIGHT KNEE 01/19/2018 ARRON CHIN DOA K Ot Z79.4 RADIUS GRINDER (CURRENT) USE OF INSULIN 01/19/2018 ARRON CHIN DOA K Ot Z79.51 RADIUS GRINDER (CURRENT) USE OF INHALED STERO 01/19/2018 NOEL CHIN DO K Ot Z82.49 FAMILY HX OF ISCHEM HEART DIS AND OTH DI 01/19/2018 NOEL CHIN DO K Ot Z87.440 PERSONAL HISTORY OF URINARY (TRACT) INFE 01/19/2018 NOEL CHIN DO Ot Z88.0 ALLERGY STATUS TO PENICILLIN 01/19/2018 NOEL CHIN DO K Ot Z88.8 ALLERGY STATUS TO OTH DRUG/MEDS/BIOL SUB 01/22/2018 CASSANDRA VELASCO CLEANER AND PREPARER Ot J45.909 UNSPECIFIED ASTHMA, UNCOMPLICATED 01/22/2018 CASSANDRA VELASCO CLEANER AND PREPARER Ot R05 COUGH 01/22/2018 CASSANDRA VELASCO CLEANER AND PREPARER Ot R06.00 DYSPNEA, UNSPECIFIED 01/22/2018 CASSANDRA VELASCO CLEANER AND PREPARER Ot J18.9 PNEUMONIA, UNSPECIFIED ORGANISM 01/22/2018 RENEA STAHL CLEANER AND PREPARER Ot Z12.31 ENCNTR SCREEN MAMMOGRAM FOR MALIGNANT NE 01/22/2018 RENEA STAHL APRN Ot R92.8 OTH ABN AND INCONCLUSIVE FINDINGS ON DX 01/22/2018 RENEA STAHL APRN Ot 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 01/22/2018 RENEA STAHL CLEANER AND PREPARER Ot N60.22 FIBROADENOSIS OF LEFT BREAST 01/22/2018 RENEA STAHL CLEANER AND PREPARER Ot N60.92 UNSPECIFIED BENIGN MAMMARY DYSPLASIA OF Procedures Code Description [place] [address] A1C (IN-HOUSE) 07/04/2012 BRANDIE ALEJO 07/04/2012 Orthopedi Hu Vickers 07/07/2012 83296 XRAY KNEE LEFT, 1 OR 2 VIEWS 09/02/2012 73546 ROUTINE VENIPUNCTURE 11/21/2012 26390 TSH 11/21/2012 49826 A1C (IN-HOUSE) 11/21/2012 61613 MICRO ALBUMIN-IN HOUSE 11/21/2012 54442 MICROALBUMIN 11/21/2012 68385 CBC 11/21/2012 17391 CMP 11/21/2012 26593 LIPID PANEL 11/21/2012 [id number] GFR CALC (RESULT ONLY) 11/21/2012 95793 A1C (IN-HOUSE) 07/24/2013 85553 ROUTINE VENIPUNCTURE 01/22/2014 13375 CMP 01/22/2014 03231 LIPID PANEL 01/22/2014 00817 TSH 01/22/2014 02450 CBC 01/22/2014 82388 A1C (IN-HOUSE) 01/22/2014 59294 THERAPUTIC INJ SQ/IM 05/31/2014 J1885 TORADOL INJ 05/31/2014 48499 MICRO ALBUMIN-IN HOUSE 05/31/2014 18957 MICROALBUMIN 05/31/2014 42818 XRAY CERVICAL SPINE, 2 OR 3 VIEWS 07/02/2014 [id number] DRAINAGE OF STOMACH, PYLORUS, VIA OPENIN 07/28/2016 Results Test Result Range Complete urinalysis with reflex to culture - 11/27/15 22:06 Urine color determination YELLOW NRG Urine clarity determination CLEAR NRG Urine pH measurement by test strip 6 5-9 Specific gravity of urine by test strip 1.020 1.016- 1.022 Urine protein assay by test strip, semi-quantitative [...] culture - 11/27/15 22:06 Bacterial urine culture [id number] NRG COLONY COUNT 10,000/ML - 100,000/ML NRG FTX;REPORTABLE SEE COMMENT NRG URINE CULTURE RESULTS >100,000/ML NRG Bacterial susceptibility panel - 11/27/15 22:06 Oxacillin susceptibility test by minimum inhibitory concentration < = NRG Gentamicin susceptibility test by minimum inhibitory concentration < = NRG Trimethoprim/sulfamethoxazole susceptibility test by minimum inhibitoryconcentration [...] 20:57 Blood leukocytes automated count (number/volume) 7.1 10*3/uL 4.3-11.0 Blood erythrocytes automated count (number/volume) 3.89 10*6/uL 4.35-5.85 Venous blood hemoglobin measurement (mass/volume) 11.2 [...] Automated blood platelet mean volume measurement 9.6 [foz_us] 7.4-10.4 Automated blood neutrophils/100 leukocytes 52 % [...] Serum or plasma sodium measurement (moles/volume) 136 mmol/L 135-145 Serum or plasma potassium measurement (moles/volume) 3.9 mmol/L 3.6-5.0 Serum or plasma chloride measurement (moles/volume) 107 mmol/L 98-107 Carbon dioxide 17 mmol/L 21-32 Serum or plasma anion gap determination (moles/volume) 12 mmol/L 5-14 Serum or plasma urea nitrogen measurement (mass/volume) 13 mg/dL 7-18 Serum or plasma creatinine measurement (mass/volume) 0.79 mg/dL 0.60-1.30 Serum or plasma urea nitrogen/creatinine mass [...] Urine pH measurement by test strip 5 5-9 Specific gravity of urine by test strip 1.025 1.016- 1.022 Urine protein assay by test strip, semi-quantitative [...] culture - 12/13/15 21:50 Bacterial urine culture [id number] NRG COLONY COUNT >100,000/ML NRG MRSA AGAR Screening test for MRSA is NEGATIVE (Final to follow) NRG FTX;REPORTABLE SENSITIVITY REPORTED AT 0821, 12-16-15 NRG URINE CULTURE RESULTS PLUS NRG Bacterial susceptibility panel - 12/13/15 21:50 Oxacillin susceptibility test by minimum inhibitory concentration < = NRG Gentamicin susceptibility test by minimum inhibitory concentration < = NRG Trimethoprim/sulfamethoxazole susceptibility test by minimum inhibitoryconcentration <= NRG Vancomycin susceptibility test by minimum inhibitory concentration < = NRG Levofloxacin susceptibility test by minimum inhibitory [...] 01:10 Blood leukocytes automated count (number/volume) 7.1 10*3/uL 4.3-11.0 Blood erythrocytes automated count (number/volume) 4.01 10*6/uL 4.35-5.85 Venous blood hemoglobin measurement (mass/volume) 10.7 [...] Automated blood platelet mean volume measurement 9.3 [foz_us] 7.4-10.4 Automated blood neutrophils/100 leukocytes 53 % [...] Serum or plasma sodium measurement (moles/volume) 140 mmol/L 135-145 Serum or plasma potassium measurement (moles/volume) 3.2 mmol/L 3.6-5.0 Serum or plasma chloride measurement (moles/volume) 108 mmol/L 98-107 Carbon dioxide 22 mmol/L 21-32 Serum or plasma anion gap determination (moles/volume) 10 mmol/L 5-14 Serum or plasma urea nitrogen measurement (mass/volume) 9 mg/dL 7-18 Serum or plasma creatinine measurement (mass/volume) 0.73 mg/dL 0.60-1.30 Serum or plasma urea nitrogen/creatinine mass [...] or plasma amylase measurement (enzymatic activity/volume) 33 U /L 25-125 Lipase - 04/05/16 01:10 Lipase 32 U/L 8-78 Influenza virus A and B antigen detection - 04/16/16 21:19 FLU RESULT NEGATIVE FOR INFLUENZA A AND B ANTIGENS BY IA NRG Microalb/Creat Ratio, Rand Ur - 04/19/16 10:40 Creatinine, Urine 110.4 mg/dL Not Estab. Microalbumin, Urine 42.4 ug/mL Not Estab. Microalb/Creat Ratio 38.4 mg/g creat 0.0-30.0 Complete blood count (CBC) with automated white blood cell (WBC) differential - 04/22/16 20:39 Blood leukocytes automated count (number/volume) 13.2 10*3/uL 4.3-11.0 Blood erythrocytes automated count (number/volume) 4.17 10*6/uL 4.35-5.85 Venous blood hemoglobin measurement (mass/volume) 10.9 [...] Automated blood platelet mean volume measurement 10.1 [foz_us] 7.4-10.4 Automated blood neutrophils/100 leukocytes 86 % [...] Serum or plasma sodium measurement (moles/volume) 131 mmol/L 135-145 Serum or plasma potassium measurement (moles/volume) 5.0 mmol/L 3.6-5.0 Serum or plasma chloride measurement (moles/volume) 102 mmol/L 98-107 Carbon dioxide 12 mmol/L 21-32 Serum or plasma anion gap determination (moles/volume) 17 mmol/L 5-14 Serum or plasma urea nitrogen measurement (mass/volume) 17 mg/dL 7-18 Serum or plasma creatinine measurement (mass/volume) 1.38 mg/dL 0.60-1.30 Serum or plasma urea nitrogen/creatinine mass [...] plasma C reactive protein measurement (mass/volume) 0.50 mg /dL 0.00-0.50 Complete urinalysis with reflex to culture - 04/22/16 21:17 Urine color determination YELLOW NRG Urine clarity determination CLEAR NRG Urine pH measurement by test strip 5 5-9 Specific gravity of urine by test strip 1.015 1.016- 1.022 Urine protein assay by test strip, semi-quantitative [...] Urine pH measurement by test strip 6.5 5-9 Specific gravity of urine by test strip 1.010 1.016- 1.022 Urine protein assay by test strip, semi-quantitative [...] 21:47 Blood leukocytes automated count (number/volume) 8.8 10*3/uL 4.3-11.0 Blood erythrocytes automated count (number/volume) 4.05 10*6/uL 4.35-5.85 Venous blood hemoglobin measurement (mass/volume) 10.2 [...] Automated blood platelet mean volume measurement 9.3 [foz_us] 7.4-10.4 Automated blood neutrophils/100 leukocytes 59 % [...] Serum or plasma sodium measurement (moles/volume) 140 mmol/L 135-145 Serum or plasma potassium measurement (moles/volume) 3.7 mmol/L 3.6-5.0 Serum or plasma chloride measurement (moles/volume) 107 mmol/L 98-107 Carbon dioxide 24 mmol/L 21-32 Serum or plasma anion gap determination (moles/volume) 9 mmol/L 5-14 Serum or plasma urea nitrogen measurement (mass/volume) 7 mg/dL 7-18 Serum or plasma creatinine measurement (mass/volume) 0.76 mg/dL 0.60-1.30 Serum or plasma urea nitrogen/creatinine mass [...] 04:30 Blood leukocytes automated count (number/volume) 7.1 10*3/uL 4.3-11.0 Blood erythrocytes automated count (number/volume) 4.13 10*6/uL 4.35-5.85 Venous blood hemoglobin measurement (mass/volume) 10.4 [...] Automated blood platelet mean volume measurement 9.3 [foz_us] 7.4-10.4 Automated blood neutrophils/100 leukocytes 59 % [...] Serum or plasma sodium measurement (moles/volume) 139 mmol/L 135-145 Serum or plasma potassium measurement (moles/volume) 4.2 mmol/L 3.6-5.0 Serum or plasma chloride measurement (moles/volume) 112 mmol/L 98-107 Carbon dioxide 20 mmol/L 21-32 Serum or plasma anion gap determination (moles/volume) 7 mmol/L 5-14 Serum or plasma urea nitrogen measurement (mass/volume) 3 mg/dL 7-18 Serum or plasma creatinine measurement (mass/volume) 0.62 mg/dL 0.60-1.30 Serum or plasma urea nitrogen/creatinine mass [...] measurement by glucometer (mass/volume) 199 mg/dL 70-110 Complete blood count (CBC) with automated white blood cell (WBC) differential - 07/18/16 09:45 Blood leukocytes automated count (number/volume) 7.4 10*3/uL 4.3-11.0 Blood erythrocytes automated count (number/volume) 4.48 10*6/uL 4.35-5.85 Venous blood hemoglobin measurement (mass/volume) 11.2 g/dL 11.5-16.0 Blood hematocrit (volume fraction) 35 % 35-52 Automated erythrocyte mean corpuscular volume 78 [foz_us] 80-99 Automated erythrocyte mean corpuscular hemoglobin (mass per erythrocyte) 25 pg 25-34 Automated erythrocyte mean corpuscular hemoglobin concentration measurement ( mass/volume) 32 g/dL 32-36 Automated erythrocyte distribution width ratio 18.0 % 10.0-14.5 Automated blood platelet count (count/volume) 523 10*3/uL 130-400 Automated blood platelet mean volume measurement 9.4 [foz_us] 7.4-10.4 Automated blood neutrophils/100 leukocytes 70 % 42-75 Automated blood lymphocytes/100 leukocytes 23 % 12-44 Blood monocytes/100 leukocytes 6 % 0-12 Automated blood eosinophils/100 leukocytes 0 % 0-10 Automated blood basophils/100 leukocytes 0 % 0-10 Blood neutrophils automated count (number/volume) 5.2 10*3 1.8-7.8 Blood lymphocytes automated count (number/volume) 1.7 10*3 1.0-4.0 Blood monocytes automated count (number/volume) 0.5 10*3 0.0-1.0 Automated eosinophil count 0.0 10*3/uL 0.0-0.3 Automated blood basophil count (count/volume) 0.0 10*3/uL 0.0-0.1 Whole blood basic metabolic panel - 07/18/16 09:45 Serum or plasma sodium measurement (moles/volume) 140 mmol/L 135-145 Serum or plasma potassium measurement (moles/volume) 3.7 mmol/L 3.6-5.0 Serum or plasma chloride measurement (moles/volume) 108 mmol/L 98-107 Carbon dioxide 22 mmol/L 21-32 Serum or plasma anion gap determination (moles/volume) 10 mmol/L 5-14 Serum or plasma urea nitrogen measurement (mass/volume) 10 mg/dL 7-18 Serum or plasma creatinine measurement (mass/volume) 0.73 mg/dL 0.60-1.30 Serum or plasma urea nitrogen/creatinine mass ratio 14 NRG Serum or plasma creatinine measurement with calculation of estimated glomerular filtration rate > NRG Serum or plasma glucose measurement (mass/volume) 112 mg/dL 70-105 Serum or plasma calcium measurement (mass/volume) 9.7 mg/dL 8.5-10.1 Methicillin resistant Staphylococcus aureus (MRSA) screening culture - 09:45 Methicillin resistant Staphylococcus aureus (MRSA) screening culture NEG NRG Urine beta human chorionic gonadotropin (hCG) measurement - 07/25/16 08:25 Urine beta human chorionic gonadotropin (hCG) measurement NEGATIVE NEGATIVE Capillary blood glucose measurement by glucometer (mass/volume) - 07/25/16 08: 33 Capillary blood glucose measurement by glucometer (mass/volume) 129 mg/dL 70-110 Capillary blood glucose measurement by glucometer (mass/volume) - 07/25/16 16: 08 Capillary blood glucose measurement by glucometer (mass/volume) 259 mg/dL 70-110 Capillary blood glucose measurement by glucometer (mass/volume) - 07/25/16 21: 11 Capillary blood glucose measurement by glucometer (mass/volume) 288 mg/dL 70-110 Capillary blood glucose measurement by glucometer (mass/volume) - 07/26/16 05: 48 Capillary blood glucose measurement by glucometer (mass/volume) 191 mg/dL 70-110 Capillary blood glucose measurement by glucometer (mass/volume) - 07/26/16 11: 14 Capillary blood glucose measurement by glucometer (mass/volume) 264 mg/dL 70-110 Complete blood count (CBC) with automated white blood cell (WBC) differential - 07/28/16 15:55 Blood leukocytes automated count (number/volume) 11.6 10*3/uL 4.3-11.0 Blood erythrocytes automated count (number/volume) 3.67 10*6/uL 4.35-5.85 Venous blood hemoglobin measurement (mass/volume) 9.2 g/dL 11.5-16.0 Blood hematocrit (volume fraction) 30 % 35-52 Automated erythrocyte mean corpuscular volume 81 [foz_us] 80-99 Automated erythrocyte mean corpuscular hemoglobin (mass per erythrocyte) 25 pg 25-34 Automated erythrocyte mean corpuscular hemoglobin concentration measurement ( mass/volume) 31 g/dL 32-36 Automated erythrocyte distribution width ratio 18.1 % 10.0-14.5 Automated blood platelet count (count/volume) 510 10*3/uL 130-400 Automated blood platelet mean volume measurement 9.4 [foz_us] 7.4-10.4 Automated blood neutrophils/100 leukocytes 78 % 42-75 Automated blood lymphocytes/100 leukocytes 15 % 12-44 Blood monocytes/100 leukocytes 7 % 0-12 Automated blood eosinophils/100 leukocytes 0 % 0-10 Automated blood basophils/100 leukocytes 0 % 0-10 Blood neutrophils automated count (number/volume) 9.1 10*3 1.8-7.8 Blood lymphocytes automated count (number/volume) 1.7 10*3 1.0-4.0 Blood monocytes automated count (number/volume) 0.8 10*3 0.0-1.0 Automated eosinophil count 0.0 10*3/uL 0.0-0.3 Automated blood basophil count (count/volume) 0.0 10*3/uL 0.0-0.1 Comprehensive metabolic panel - 07/28/16 15:55 Serum or plasma sodium measurement (moles/volume) 137 mmol/L 135-145 Serum or plasma potassium measurement (moles/volume) 3.4 mmol/L 3.6-5.0 Serum or plasma chloride measurement (moles/volume) 102 mmol/L 98-107 Carbon dioxide 24 mmol/L 21-32 Serum or plasma anion gap determination (moles/volume) 11 mmol/L 5-14 Serum or plasma urea nitrogen measurement (mass/volume) 5 mg/dL 7-18 Serum or plasma creatinine measurement (mass/volume) 0.73 mg/dL 0.60-1.30 Serum or plasma urea nitrogen/creatinine mass ratio 7 NRG Serum or plasma creatinine measurement with calculation of estimated glomerular filtration rate > NRG Serum or plasma glucose measurement (mass/volume) 234 mg/dL 70-105 Serum or plasma calcium measurement (mass/volume) 9.1 mg/dL 8.5-10.1 Serum or plasma total bilirubin measurement (mass/volume) 0.6 mg/dL 0.1-1.0 Serum or plasma alkaline phosphatase measurement (enzymatic activity/volume) 109 U/L 40-136 Serum or plasma aspartate aminotransferase measurement (enzymatic activity/ volume) 46 U/L 5-34 Serum or plasma alanine aminotransferase measurement (enzymatic activity/volume ) 117 U/L 0-55 Serum or plasma protein measurement (mass/volume) 7.2 g/dL 6.4-8.2 Serum or plasma albumin measurement (mass/volume) 3.7 g/dL 3.2-4.5 Lipase - 07/28/16 15:55 Lipase 5 U/L 8-78 Capillary blood glucose measurement by glucometer (mass/volume) - 07/29/16 00: 42 Capillary blood glucose measurement by glucometer (mass/volume) 175 mg/dL 70-110 Capillary blood glucose measurement by glucometer (mass/volume) - 07/29/16 04: 37 Capillary blood glucose measurement by glucometer (mass/volume) 158 mg/dL 70-110 Complete blood count (CBC) with automated white blood cell (WBC) differential - 07/29/16 05:20 Blood leukocytes automated count (number/volume) 11.1 10*3/uL 4.3-11.0 Blood erythrocytes automated count (number/volume) 3.28 10*6/uL 4.35-5.85 Venous blood hemoglobin measurement (mass/volume) 8.3 g/dL 11.5-16.0 Blood hematocrit (volume fraction) 27 % 35-52 Automated erythrocyte mean corpuscular volume 81 [foz_us] 80-99 Automated erythrocyte mean corpuscular hemoglobin (mass per erythrocyte) 25 pg 25-34 Automated erythrocyte mean corpuscular hemoglobin concentration measurement ( mass/volume) 31 g/dL 32-36 Automated erythrocyte distribution width ratio 17.7 % 10.0-14.5 Automated blood platelet count (count/volume) 436 10*3/uL 130-400 Automated blood platelet mean volume measurement 9.3 [foz_us] 7.4-10.4 Automated blood neutrophils/100 leukocytes 79 % 42-75 Automated blood lymphocytes/100 leukocytes 13 % 12-44 Blood monocytes/100 leukocytes 8 % 0-12 Automated blood eosinophils/100 leukocytes 1 % 0-10 Automated blood basophils/100 leukocytes 0 % 0-10 Blood neutrophils automated count (number/volume) 8.7 10*3 1.8-7.8 Blood lymphocytes automated count (number/volume) 1.4 10*3 1.0-4.0 Blood monocytes automated count (number/volume) 0.9 10*3 0.0-1.0 Automated eosinophil count 0.1 10*3/uL 0.0-0.3 Automated blood basophil count (count/volume) 0.0 10*3/uL 0.0-0.1 Comprehensive metabolic panel - 07/29/16 05:20 Serum or plasma sodium measurement (moles/volume) 138 mmol/L 135-145 Serum or plasma potassium measurement (moles/volume) 3.4 mmol/L 3.6-5.0 Serum or plasma chloride measurement (moles/volume) 105 mmol/L 98-107 Carbon dioxide 21 mmol/L 21-32 Serum or plasma anion gap determination (moles/volume) 12 mmol/L 5-14 Serum or plasma urea nitrogen measurement (mass/volume) 5 mg/dL 7-18 Serum or plasma creatinine measurement (mass/volume) 0.56 mg/dL 0.60-1.30 Serum or plasma urea nitrogen/creatinine mass ratio 9 NRG Serum or plasma creatinine measurement with calculation of estimated glomerular filtration rate > NRG Serum or plasma glucose measurement (mass/volume) 160 mg/dL 70-105 Serum or plasma calcium measurement (mass/volume) 8.4 mg/dL 8.5-10.1 Serum or plasma total bilirubin measurement (mass/volume) 0.5 mg/dL 0.1-1.0 Serum or plasma alkaline phosphatase measurement (enzymatic activity/volume) 116 U/L 40-136 Serum or plasma aspartate aminotransferase measurement (enzymatic activity/ volume) 35 U/L 5-34 Serum or plasma alanine aminotransferase measurement (enzymatic activity/volume ) 91 U/L 0-55 Serum or plasma protein measurement (mass/volume) 6.1 g/dL 6.4-8.2 Serum or plasma albumin measurement (mass/volume) 3.1 g/dL 3.2-4.5 Capillary blood glucose measurement by glucometer (mass/volume) - 07/29/16 11: 57 Capillary blood glucose measurement by glucometer (mass/volume) 158 mg/dL 70-110 Capillary blood glucose measurement by glucometer (mass/volume) - 07/29/16 18: 47 Capillary blood glucose measurement by glucometer (mass/volume) 282 mg/dL 70-110 Serum or plasma troponin i.cardiac measurement (mass/volume) - 07/29/16 19:18 Serum or plasma troponin i.cardiac measurement (mass/volume) < ng/ mL <0.30 Serum or plasma troponin i.cardiac measurement (mass/volume) - 07/29/16 19:18 Serum or plasma troponin i.cardiac measurement (mass/volume) < ng/ mL <0.30 Capillary blood glucose measurement by glucometer (mass/volume) - 07/29/16 21: 53 Capillary blood glucose measurement by glucometer (mass/volume) 234 mg/dL 70-110 Serum or plasma troponin i.cardiac measurement (mass/volume) - 07/30/16 00:55 Serum or plasma troponin i.cardiac measurement (mass/volume) < ng/ mL <0.30 Capillary blood glucose measurement by glucometer (mass/volume) - 07/30/16 05: 01 Capillary blood glucose measurement by glucometer (mass/volume) 192 mg/dL 70-110 Capillary blood glucose measurement by glucometer (mass/volume) - 07/30/16 10: 44 Capillary blood glucose measurement by glucometer (mass/volume) 177 mg/dL 70-110 Capillary blood glucose measurement by glucometer (mass/volume) - 07/30/16 15: 42 Capillary blood glucose measurement by glucometer (mass/volume) 206 mg/dL 70-110 Capillary blood glucose measurement by glucometer (mass/volume) - 07/30/16 20: 34 Capillary blood glucose measurement by glucometer (mass/volume) 241 mg/dL 70-110 Capillary blood glucose measurement by glucometer (mass/volume) - 07/31/16 05: 05 Capillary blood glucose measurement by glucometer (mass/volume) 175 mg/dL 70-110 Complete blood count (CBC) with automated white blood cell (WBC) differential - 07/31/16 06:00 Blood leukocytes automated count (number/volume) 9.0 10*3/uL 4.3-11.0 Blood erythrocytes automated count (number/volume) 3.10 10*6/uL 4.35-5.85 Venous blood hemoglobin measurement (mass/volume) 7.7 g/dL 11.5-16.0 Blood hematocrit (volume fraction) 25 % 35-52 Automated erythrocyte mean corpuscular volume 80 [foz_us] 80-99 Automated erythrocyte mean corpuscular hemoglobin (mass per erythrocyte) 25 pg 25-34 Automated erythrocyte mean corpuscular hemoglobin concentration measurement ( mass/volume) 31 g/dL 32-36 Automated erythrocyte distribution width ratio 17.3 % 10.0-14.5 Automated blood platelet count (count/volume) 460 10*3/uL 130-400 Automated blood platelet mean volume measurement 9.3 [foz_us] 7.4-10.4 Automated blood neutrophils/100 leukocytes 79 % 42-75 Automated blood lymphocytes/100 leukocytes 14 % 12-44 Blood monocytes/100 leukocytes 6 % 0-12 Automated blood eosinophils/100 leukocytes 1 % 0-10 Automated blood basophils/100 leukocytes 0 % 0-10 Blood neutrophils automated count (number/volume) 7.1 10*3 1.8-7.8 Blood lymphocytes automated count (number/volume) 1.3 10*3 1.0-4.0 Blood monocytes automated count (number/volume) 0.6 10*3 0.0-1.0 Automated eosinophil count 0.1 10*3/uL 0.0-0.3 Automated blood basophil count (count/volume) 0.0 10*3/uL 0.0-0.1 Comprehensive metabolic panel - 07/31/16 06:00 Serum or plasma sodium measurement (moles/volume) 138 mmol/L 135-145 Serum or plasma potassium measurement (moles/volume) 3.4 mmol/L 3.6-5.0 Serum or plasma chloride measurement (moles/volume) 106 mmol/L 98-107 Carbon dioxide 23 mmol/L 21-32 Serum or plasma anion gap determination (moles/volume) 9 mmol/L 5-14 Serum or plasma urea nitrogen measurement (mass/volume) 3 mg/dL 7-18 Serum or plasma creatinine measurement (mass/volume) 0.57 mg/dL 0.60-1.30 Serum or plasma urea nitrogen/creatinine mass ratio 5 NRG Serum or plasma creatinine measurement with calculation of estimated glomerular filtration rate > NRG Serum or plasma glucose measurement (mass/volume) 207 mg/dL 70-105 Serum or plasma calcium measurement (mass/volume) 8.5 mg/dL 8.5-10.1 Serum or plasma total bilirubin measurement (mass/volume) 0.3 mg/dL 0.1-1.0 Serum or plasma alkaline phosphatase measurement (enzymatic activity/volume) 93 U/L 40-136 Serum or plasma aspartate aminotransferase measurement (enzymatic activity/ volume) 11 U/L 5-34 Serum or plasma alanine aminotransferase measurement (enzymatic activity/volume ) 47 U/L 0-55 Serum or plasma protein measurement (mass/volume) 6.1 g/dL 6.4-8.2 Serum or plasma albumin measurement (mass/volume) 2.9 g/dL 3.2-4.5 Magnesium - 07/31/16 06:00 Magnesium 1.6 mg/dL 1.8-2.4 Capillary blood glucose measurement by glucometer (mass/volume) - 07/31/16 10: 54 Capillary blood glucose measurement by glucometer (mass/volume) 267 mg/dL 70-110 Capillary blood glucose measurement by glucometer (mass/volume) - 07/31/16 16: 17 Capillary blood glucose measurement by glucometer (mass/volume) 167 mg/dL 70-110 Capillary blood glucose measurement by glucometer (mass/volume) - 07/31/16 20: 56 Capillary blood glucose measurement by glucometer (mass/volume) 219 mg/dL 70-110 Capillary blood glucose measurement by glucometer (mass/volume) - 08/01/16 05: 24 Capillary blood glucose measurement by glucometer (mass/volume) 189 mg/dL 70-110 Automated blood complete blood count (hemogram) panel - 08/01/16 09:37 Blood leukocytes automated count (number/volume) 9.5 10*3/uL 4.3-11.0 Blood erythrocytes automated count (number/volume) 3.60 10*6/uL 4.35-5.85 Venous blood hemoglobin measurement (mass/volume) 8.9 g/dL 11.5-16.0 Blood hematocrit (volume fraction) 29 % 35-52 Automated erythrocyte mean corpuscular volume 81 [foz_us] 80-99 Automated erythrocyte mean corpuscular hemoglobin (mass per erythrocyte) 25 pg 25-34 Automated erythrocyte mean corpuscular hemoglobin concentration measurement ( mass/volume) 31 g/dL 32-36 Automated erythrocyte distribution width ratio 17.6 % 10.0-14.5 Automated blood platelet count (count/volume) 454 10*3/uL 130-400 Automated blood platelet mean volume measurement 10.2 [foz_us] 7.4-10.4 Capillary blood glucose measurement by glucometer (mass/volume) - 08/01/16 11: 31 Capillary blood glucose measurement by glucometer (mass/volume) 235 mg/dL 70-110 Capillary blood glucose measurement by glucometer (mass/volume) - 08/01/16 15: 48 Capillary blood glucose measurement by glucometer (mass/volume) 249 mg/dL 70-110 Complete urinalysis with reflex to culture - 12/02/16 21:25 Urine color determination YELLOW NRG Urine clarity determination CLEAR NRG Urine pH measurement by test strip 5 5-9 Specific gravity of urine by test strip 1.025 1.016- 1.022 Urine protein assay by test strip, semi-quantitative 2+ NEGATIVE Urine glucose detection by automated test strip 2+ NEGATIVE Erythrocytes detection in urine sediment by [...] urine sediment by light microscopy FEW NRG Squamous epithelial cells detection in urine sediment by light microscopy 2-5 NRG Crystals detection in urine sediment by light microscopy NONE NRG Casts detection in urine sediment by light microscopy NONE NRG Mucus detection in urine sediment by light microscopy MODERATE NRG Complete urinalysis with reflex to culture YES NRG Bacterial urine culture - 12/02/16 21:25 Bacterial urine culture [id number] NRG COLONY COUNT 10,000/ML - 100,000/ML NRG FTX;REPORTABLE SENSITIVITY REPORTED AT 1019, 9--17 NR URINE CULTURE RESULTS PLUS NR Bacterial susceptibility panel - 12/02/16 21:25 Oxacillin susceptibility test by minimum inhibitory concentration < = NRG Gentamicin susceptibility test by minimum inhibitory concentration < = NRG Trimethoprim/sulfamethoxazole susceptibility test by minimum inhibitoryconcentration <= NRG Vancomycin susceptibility test by minimum inhibitory concentration < = NRG Levofloxacin susceptibility test by minimum inhibitory concentration <= NRG Rifampin susceptibility test by minimum inhibitory concentration <= NRG Tetracycline susceptibility test by minimum inhibitory concentration <= NRG Complete blood count (CBC) with automated white blood cell (WBC) differential - 12/02/16 22:25 Blood leukocytes automated count (number/volume) 9.2 10*3/uL 4.3-11.0 Blood erythrocytes automated count (number/volume) 4.09 10*6/uL 4.35-5.85 Venous blood hemoglobin measurement (mass/volume) 10.3 g/dL 11.5-16.0 Blood hematocrit (volume fraction) 33 % 35-52 Automated erythrocyte mean corpuscular volume 80 [foz_us] 80-99 Automated erythrocyte mean corpuscular hemoglobin (mass per erythrocyte) 25 pg 25-34 Automated erythrocyte mean corpuscular hemoglobin concentration measurement ( mass/volume) 32 g/dL 32-36 Automated erythrocyte distribution width ratio 15.8 % 10.0-14.5 Automated blood platelet count (count/volume) 486 10*3/uL 130-400 Automated blood platelet mean volume measurement 9.4 [foz_us] 7.4-10.4 Automated blood neutrophils/100 leukocytes 54 % 42-75 Automated blood lymphocytes/100 leukocytes 36 % 12-44 Blood monocytes/100 leukocytes 9 % 0-12 Automated blood eosinophils/100 leukocytes 1 % 0-10 Automated blood basophils/100 leukocytes 0 % 0-10 Blood neutrophils automated count (number/volume) 5.0 10*3 1.8-7.8 Blood lymphocytes automated count (number/volume) 3.3 10*3 1.0-4.0 Blood monocytes automated count (number/volume) 0.8 10*3 0.0-1.0 Automated eosinophil count 0.1 10*3/uL 0.0-0.3 Automated blood basophil count (count/volume) 0.0 10*3/uL 0.0-0.1 Comprehensive metabolic panel - 12/02/16 22:25 Serum or plasma sodium measurement (moles/volume) 141 mmol/L 135-145 Serum or plasma potassium measurement (moles/volume) 3.7 mmol/L 3.6-5.0 Serum or plasma chloride measurement (moles/volume) 108 mmol/L 98-107 Carbon dioxide 21 mmol/L 21-32 Serum or plasma anion gap determination (moles/volume) 12 mmol/L 5-14 Serum or plasma urea nitrogen measurement (mass/volume) 10 mg/dL 7-18 Serum or plasma creatinine measurement (mass/volume) 1.03 mg/dL 0.60-1.30 Serum or plasma urea nitrogen/creatinine mass ratio 10 NRG Serum or plasma creatinine measurement with calculation of estimated glomerular filtration rate 58 NRG Serum or plasma glucose measurement (mass/volume) 138 mg/dL 70-105 Serum or plasma calcium measurement (mass/volume) 9.4 mg/dL 8.5-10.1 Serum or plasma total bilirubin measurement (mass/volume) 0.3 mg/dL 0.1-1.0 Serum or plasma alkaline phosphatase measurement (enzymatic activity/volume) 71 U/L 40-136 Serum or plasma aspartate aminotransferase measurement (enzymatic activity/ volume) 14 U/L 5-34 Serum or plasma alanine aminotransferase measurement (enzymatic activity/volume ) 15 U/L 0-55 Serum or plasma protein measurement (mass/volume) 8.0 g/dL 6.4-8.2 Serum or plasma albumin measurement (mass/volume) 4.2 g/dL 3.2-4.5 Magnesium - 12/02/16 22:25 Magnesium 1.9 mg/dL 1.8-2.4 Serum or plasma amylase measurement (enzymatic activity/volume) - 12/02/16 22: 25 Serum or plasma amylase measurement (enzymatic activity/volume) 38 U /L 25-125 Lipase - 12/02/16 22:25 Lipase 47 U/L 8-78 Urine beta human chorionic gonadotropin (hCG) measurement - 01/14/17 07:55 Urine beta human chorionic gonadotropin (hCG) measurement NEGATIVE NEGATIVE Capillary blood glucose measurement by glucometer (mass/volume) - 01/14/17 09: 23 Capillary blood glucose measurement by glucometer (mass/volume) 163 mg/dL 70-110 TSH - 02/11/17 09:03 TSH 1.74 mIU/L NRG CBC - 02/25/17 10:15 WHITE BLOOD CELL COUNT 6.1 Thousand/uL 3.8-10.8 RED BLOOD CELL COUNT 3.83 Million/uL 3.80-5.10 HEMOGLOBIN 9.8 g/dL 11.7-15.5 HEMATOCRIT 32.6 % 35.0-45.0 MCV 85.1 fL 80.0-100.0 MCH 25.6 pg 27.0-33.0 MCHC 30.1 g/dL 32.0-36.0 RDW 16.8 % 11.0-15.0 PLATELET COUNT 474 Thousand/uL 140-400 MPV 9.9 fL 7.5-12.5 ABSOLUTE NEUTROPHILS 3361 cells/uL 0912-1943 ABSOLUTE LYMPHOCYTES 2159 cells/uL 850-3900 ABSOLUTE MONOCYTES 464 cells/uL 200-950 ABSOLUTE EOSINOPHILS 73 cells/uL 15-500 ABSOLUTE BASOPHILS 43 cells/uL 0-200 NEUTROPHILS 55.1 % NRG LYMPHOCYTES 35.4 % NRG MONOCYTES 7.6 % NRG EOSINOPHILS 1.2 % NRG BASOPHILS 0.7 % NRG CBC - 07/22/17 09:44 WHITE BLOOD CELL COUNT 6.4 Thousand/uL 3.8-10.8 RED BLOOD CELL COUNT 4.18 Million/uL 3.80-5.10 HEMOGLOBIN 12.8 g/dL 11.7-15.5 HEMATOCRIT 38.7 % 35.0-45.0 MCV 92.6 fL 80.0-100.0 MCH 30.6 pg 27.0-33.0 MCHC 33.1 g/dL 32.0-36.0 RDW 12.7 % 11.0-15.0 PLATELET COUNT 371 Thousand/uL 140-400 MPV 9.5 fL 7.5-12.5 ABSOLUTE NEUTROPHILS 3270 cells/uL 9999-2477 ABSOLUTE LYMPHOCYTES 2470 cells/uL 850-3900 ABSOLUTE MONOCYTES 538 cells/uL 200-950 ABSOLUTE EOSINOPHILS 83 cells/uL 15-500 ABSOLUTE BASOPHILS 38 cells/uL 0-200 NEUTROPHILS 51.1 % NRG LYMPHOCYTES 38.6 % NRG MONOCYTES 8.4 % NRG EOSINOPHILS 1.3 % NRG BASOPHILS 0.6 % NRG SUREPATH PAP AND HPV mRNA E6/E7 - 08/09/17 11:13 CLINICAL INFORMATION: NRG LMP: 08/02/17 NRG PREV. PAP: 06/2009 NRG PREV. 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 Visit Date/Time Discharge Status Pt. Type Provider Facility Loc./Unit Complaint [id number] 07/02/2014 09:11:00 07/02/2014 23:59:59 CLS Outpatient CHERRY MARTIN APRN [id number] 05/31/2014 09:13:00 05/31/2014 23:59:59 CLS Outpatient CHERRY MARTIN APRN [id number] 03/31/2014 09:55:00 03/31/2014 23:59:59 CLS Outpatient CHERRY MARTIN APRN [id number] 02/22/2014 16:10:00 02/22/2014 23:59:59 CLS Outpatient CHERRY MARTIN APRN [id number] 01/22/2014 08:37:00 01/22/2014 23:59:59 CLS Outpatient CHERRY MARTIN APRN [id number] 08/24/2013 09:05:00 08/24/2013 23:59:59 CLS Outpatient CHERRY MARTIN APRN [id number] 07/24/2013 09:45:00 07/24/2013 23:59:59 CLS Outpatient CHERRY MARTIN APRN [id number] 05/23/2012 08:12:00 05/23/2012 23:59:59 CLS Outpatient [id number] 01/08/2012 09:40:00 01/08/2012 23:59:59 CLS Outpatient ADDIE RIAZ Kelsi [id number] 01/08/2012 09:40:00 01/08/2012 23:59:59 CLS Outpatient [id number] 11/21/2012 09:20:00 Document Registration [id number] 09/02/2012 09:01:00 Document Registration [id number] 08/01/2012 09:41:00 Document Registration [id number] 07/04/2012 08:48:00 Document Registration [id number] 06/24/2012 13:23:00 Document Registration [id number] 10/11/2017 09:00:00 10/11/2017 23:59:59 CLS Outpatient CHERRY MARTIN APRN [facility] [id number] 08/09/2017 09:00:00 Document Registration [id number] 07/22/2017 09:20:00 Document Registration [id number] 02/25/2017 10:20:00 Document Registration [id number] 02/11/2017 08:40:00 Document Registration [id number] 10/01/2014 02:53:42 ACT Document Registration [id number] 01/24/2018 08:18:00 01/24/2018 23:59:59 CLS Outpatient HU VICKERS [facility] RAD OSTEOARTHRITIS KNEE RIGHT [id number] 01/18/2018 23:45:00 01/19/2018 02:05:00 DIS Emergency NOEL CHIN DO [facility] ER RT KNEE SWELLING PAIN [id number] 09/23/2017 10:45:00 09/23/2017 23:59:59 CLS Outpatient RENEA STAHL APRN [facility] RAD ABN MAMMO OF LEFT BREAST [id number] 09/10/2017 11:11:00 09/10/2017 23:59:59 CLS Preadmit RENEA STAHL [employer] [facility] RAD ABNORMAL MAMMOGRAM OF LEFT BREAST [id number] 09/06/2017 12:52:00 09/06/2017 23:59:59 CLS Outpatient MARIBETHDONNELLRENEA R [employer] [facility] RAD ABNORMAL MAMMOGRAM OF LEFT BREAST [id number] 08/14/2017 10:00:00 08/14/2017 23:59:59 CLS Outpatient RENEA STAHL [employer] [facility] RAD SCREENING BREAST EXAMINATION [id number] 01/14/2017 07:38:00 01/14/2017 10:30:00 DIS Outpatient ADAN COLLIER MD [facility] ENDO IRON DEFICIENCY ANEMIA/DYSPHAGIA/ABNORMAL CT [id number] 01/11/2017 09:30:00 01/11/2017 09:52:00 DIS Outpatient ADAN COLLIER MD [facility] PREOP COLONOSCOPY/EGD [id number] 12/02/2016 21:57:00 12/03/2016 02:27:00 DIS Emergency WILEY AMBRIZ MD [facility] ER L SIDE PAIN [id number] 09/18/2016 09:15:00 09/18/2016 23:59:59 CLS Outpatient CASSANDRA VELASCO APRN [facility] RAD PNEUMONIA [id number] 07/28/2016 18:13:00 08/01/2016 18:20:00 DIS Inpatient ADAN COLLIER MD [facility] 4TH GASTRIC DISTENSION, BIBASILAR ATELECTASIS [id number] 07/25/2016 08:18:00 07/26/2016 15:30:00 DIS Outpatient ADAN COLLIER MD [facility] SDC SEVERE REFLUX, DYSPHAGIA [id number] 07/18/2016 09:13:00 07/18/2016 09:53:00 DIS Outpatient ADAN COLLIER MD [facility] PREOP SEVERE REFLUX, DYSPHAGIA [id number] 06/07/2016 20:14:00 06/09/2016 14:04:00 DIS Inpatient GILLES JONES, VALERIE R [facility] 4TH UPPER ABDOMINAL PAIN, ILEUS,NAUSEA + VOMITING [id number] 05/23/2016 10:37:00 05/23/2016 23:59:59 CLS Outpatient CASSANDRA VELASCO APRN [facility] RT DYSPNEA,COUGH, ASTHMA [id number] 04/22/2016 20:13:00 04/23/2016 00:09:00 DIS Emergency WILEY AMBRIZ MD [facility] ER N/V [id number] 04/16/2016 21:10:00 04/16/2016 22:05:00 DIS Emergency LISS BAGLEY APRN [facility] ER BRONCHITIS/RIB PAIN/SINUS INFECTION [id number] 04/04/2016 22:54:00 04/05/2016 02:39:00 DIS Emergency WILEY AMBRIZ MD [facility] ER ABD PAIN [id number] 03/10/2016 20:30:00 03/10/2016 21:41:00 DIS Emergency LISS BAGLEY APRN [facility] ER COUGHING, CONGESTION [id number] 03/03/2016 22:07:00 03/03/2016 23:33:00 DIS Emergency ELSY CHAVEZ NOEL Dolan [facility] ER COUGHING, THROAT PAIN [id number] 02/21/2016 12:19:00 02/21/2016 23:59:59 CLS Outpatient ADRIENNE BRITTON DO [facility] SDC GERD [id number] 02/16/2016 06:15:00 02/16/2016 23:59:59 CLS Outpatient ADRIENNE BRITTON DO [facility] PREOP GERD [id number] 12/19/2015 11:49:00 12/19/2015 23:59:59 CLS Outpatient CHERRY MARTIN [facility] CARD RT UPPER QUAD PAIN [id number] 12/16/2015 07:43:00 12/16/2015 23:59:59 CLS Outpatient CHERRY MARTIN [facility] RAD RUQ PAIN [id number] 12/13/2015 20:40:00 12/13/2015 23:30:00 DIS Emergency FATIMAH VICK [facility] ER GALLBLADDER ISSUES/GAS /PAIN [id number] 11/27/2015 20:07:00 11/27/2015 22:05:00 DIS Emergency FATIMAH VICK [facility] ER PAINFUL URINATION, BACK AND SIDE PAIN [id number] 08/22/2015 20:32:00 08/22/2015 22:14:00 DIS Emergency LISS BAGLEY CLE[employer]ER [facility] ER LT SIDE ABD PAIN/VOMITTING /LIGHT HEADED [id number] 07/13/2015 21:29:00 07/14/2015 00:14:00 DIS Emergency YADIRA WHITEHEAD MD [facility] ER ABD PAIN,NAUSEA [id number] 01/12/2015 20:20:00 01/12/2015 22:37:00 DIS Emergency LISS BAGLEY APRN [facility] ER [id number] 09/30/2014 21:41:00 10/01/2014 01:05:00 DIS Emergency FATIMAH VICK [facility] ER [id number] 08/14/2014 20:54:00 08/14/2014 23:33:00 DIS Emergency LISS BAGLEY APRN [facility] ER [id number] 04/12/2014 20:35:00 04/12/2014 23:45:00 DIS Emergency FATIMAH VICK [facility] ER [id number] 04/08/2014 21:11:00 04/09/2014 01:12:00 DIS Emergency CHERRY OLIVER DO [facility] ER [id number] 10/20/2017 20:00:00 Document Registration [id number] 04/25/2010 22:38:00 Document Registration [id number] 04/20/2016 12:09:00 Document Registration
--- NOTE | 2018-02-16 16:44 | ED Lower Extremity ---
General Stated Complaint: KNEE SURGERY TUES, KNEE PAINFUL/SWELLING Source: patient Exam Limitations: no limitations History of Present Illness Date Seen by Provider: Feb 16, 2018 Time Seen by Provider: 16:42 Initial Comments To ER per private vehicle with reports of right knee pain. She is ambulatory to room 6 with the use of a cane. She had knee arthroscopy on the right by Dr. Dyer on 02/11/18 for torn meniscus. She started having increased pain and swelling on Saturday02/14/18. She took her last dose of hydrocodone at 1 PM today without improvement. No fevers or chills. Onset: last week, other Severity: moderate Pain/Injury Location: right knee Method of Injury: unknown, other (no falls or other known injury) Modifying Factors: Improves With Movement Allergies and Home Medications Allergies Coded Allergies: metoclopramide (Verified Allergy, Intermediate, 07/30/16) S.O.A. Penicillins (Verified Allergy, Mild, 03/10/16) Home Medications Albuterol Sulfate 1 Puff Puff, 2 PUFF IH Q6H PRN for SHORTNESS OF BREATH, ( Reported) Cetirizine HCl 10 Mg Capsule, 10 MG PO DAILY, (Reported) Insulin Glargine,Hum.rec.anlog 100 Unit/1 Ml Insuln.pen, 24 UNITS SC HS, ( Reported) Metformin HCl 1,000 Mg Tablet, 1,000 MG PO BID, (Reported) Montelukast Sodium 10 Mg Tablet, 10 MG PO HS, (Reported) Naproxen 500 Mg Tablet, 500 MG PO BID Prescribed by: NOEL CHIN on 01/19/18 0117 Pantoprazole Sodium 40 Mg Tablet.dr, 40 MG PO HS, (Reported) Sulfamethoxazole/Trimethoprim 1 Each Tablet, 1 EACH PO BID Prescribed by: LISS BAGLEY on 10/20/17 9915 Patient Home Medication List Home Medication List Reviewed: Yes Review of Systems Constitutional: see HPI EENTM: see HPI Cardiovascular: no symptoms reported Genitourinary: no symptoms reported Musculoskeletal: see HPI Skin: no symptoms reported Psychiatric/Neurological: No Symptoms Reported Past Rukqvnj-Bjhrfw-Uwtgar Hx Patient Social History 2nd Hand Smoke Exposure: No Recent Foreign Travel: No Contact w/Someone Who Travel: No Recent Hopitalizations: No Immunizations Up To Date Tetanus Booster (TDap): Unknown PED Vaccines UTD: No Date of Pneumonia Vaccine: July 28, 2009 Date of Influenza Vaccine: Jan 09, 2017 Seasonal Allergies Seasonal Allergies: Yes Past Medical History Surgeries: Yes (LT KNEE SCOPE 2012; ENDOSCOPY; EYE SURGERY; ANDREW FUNDOPLICATION 2016) Abdominal, Eye Surgery, Orthopedic Respiratory: Yes Asthma Currently Using CPAP: No Currently Using BIPAP: No Cardiac: Yes High Cholesterol Neurological: No Reproductive Disorders: No Female Reproductive Disorders: Denies Sexually Transmitted Disease: No HIV/AIDS: No Genitourinary: Yes UTI-Chronic Gastrointestinal: Yes (ESOPHAGEAL NARROWING) Gastroesophageal Reflux, Hiatal Hernia, Ulcer Musculoskeletal: Yes (LEFT KNEE SCOPE) Arthritis Endocrine: Yes Diabetes, Insulin dep HEENT: No Loss of Vision: Bilateral Hearing Impairment: Denies Cancer: No Psychosocial: No Integumentary: No Blood Disorders: No Adverse Reaction/Blood Tranf: No Family Medical History Arthritis 19 FATHER 19 MOTHER G8 SISTER Asthma 19 FATHER 19 MOTHER G8 SISTER Cataracts 19 MOTHER Diabetes mellitus 19 FATHER 19 MOTHER G8 SISTER FH: leukemia 19 FATHER Myocardial infarction 19 MOTHER Parkinson's disease 19 FATHER Thyroid disease 19 MOTHER Asthma, CAD Over 55 Years Old, Diabetes Physical Exam Vital Signs Capillary Refill : Height, Weight, BMI Height: 5'3.00" Weight: 179lbs. 0oz. 81.027458wb; 28.7 BMI Method:Stated General Appearance: WD/WN, no apparent distress HEENT: PERRL/EOMI, normal ENT inspection Respiratory: no respiratory distress, no accessory muscle use Hips: bilateral hip non-tender, bilateral hip normal inspection, bilateral hip normal range of motion Legs: bilateral leg non-tender, bilateral leg normal inspection, bilateral leg normal range of motion Knees: right knee pain; left knee other (to puncture sites at the anterior aspect of the knee medially and laterally to the patella with a suture remaining in place. No erythema, no drainage, no palpable effusion.) Ankles: bilateral ankle non-tender, bilateral ankle normal inspection, bilateral ankle normal range of motion Neurologic/Psychiatric: alert, normal mood/affect, oriented x 3 Departure Impression Primary Impression: Postoperative pain of right knee Disposition: 01 HOME, SELF-CARE Condition: Stable Departure-Patient Inst. Decision time for Depature: 16:44 Referrals: RIAZ REAL DO (PCP) Primary Care Physician CHERRY MARTIN (Family) Primary Care Physician Patient Instructions: Knee Pain Add. Discharge Instructions: 1. Pain medication as directed 2. Call Dr. Dyer tomorrow to make an appointment to be seen 2. LISS BAGLEY APRN Feb 16, 2018 16:44
[2018-02-16] MEDS ORDERED: KETOROLAC 60 MG/2 ML VIAL IM ONE (16:45)
[2018-02-16 17:20] LABS: BASOPHILS % (AUTO) 1 % (0-10); EOSINOPHILS # (AUTO) 0.1 10^3/uL (0.0-0.3); EOSINOPHILS % (AUTO) 1 % (0-10); HEMATOCRIT 37 % (35-52); HEMOGLOBIN 12.3 G/DL (11.5-16.0); LYMPHOCYTES # (AUTO) 2.3 X 10^3 (1.0-4.0); LYMPHOCYTES % (AUTO) 28 % (12-44); MEAN CORPUSCULAR HEMOGLOBIN 29 PG (25-34); MEAN CORPUSCULAR HGB CONC 33 G/DL (32-36); MEAN CORPUSCULAR VOLUME 88 FL (80-99); MEAN PLATELET VOLUME 9.9 FL (7.4-10.4); MONOCYTES # (AUTO) 0.5 X 10^3 (0.0-1.0); MONOCYTES % (AUTO) 7 % (0-12); NEUTROPHILS # (AUTO) 5.1 X 10^3 (1.8-7.8); NEUTROPHILS % (AUTO) 64 % (42-75); PLATELET COUNT 387 10^3/uL (130-400); RED BLOOD COUNT 4.24 10^6/uL (4.35-5.85); RED CELL DISTRIBUTION WIDTH 13.7 % (10.0-14.5); WHITE BLOOD COUNT 8.1 10^3/uL (4.3-11.0)
[2018-02-16 17:43] VITALS: BP 135/78
== END 2018-02-16 17:44 | disposition home or self-care (01) ==
LOC: EDUNIT# 16:20 → ER 16:22
DX: G89.18 Other acute postprocedural pain (principal); M25.561 Pain in right knee; J45.909 Unspecified asthma, uncomplicated; E78.00 Pure hypercholesterolemia, unspecified; K21.9 Gastro-esophageal reflux disease without esophagitis; E11.9 Type 2 diabetes mellitus without complications; Z82.49 Family history of ischemic heart disease and other diseases of the circulatory system; Z87.19 Personal history of other diseases of the digestive system; Z98.890 Other specified postprocedural states; Z87.440 Personal history of urinary (tract) infections; Z88.0 Allergy status to penicillin; Z88.8 Allergy status to other drugs, medicaments and biological substances; Z79.4 Long term (current) use of insulin; Z79.51 Long term (current) use of inhaled steroids
CPT/HCPCS: 36415; 85025; 99284

== ENCOUNTER 2018-05-26 20:07 | Emergency (ER) | payer OTHER ==
[~2018-05-26] VITALS: Ht 160 cm; Wt 80.7 kg
[~2018-05-26 20:07] MED LIST changes: +LOSA25TA41 PO; -LOSA25TA6 PO
[2018-05-26] MEDS ORDERED: ONDANSETRON 4 MG/2 ML (SDV) Z0FRAN IVP ONE (20:15)
[2018-05-26 20:32] LABS: BASOPHILS % (AUTO) 0 % (0-10); EOSINOPHILS # (AUTO) 0.1 10^3/uL (0.0-0.3); EOSINOPHILS % (AUTO) 1 % (0-10); HEMATOCRIT 34 % (35-52); HEMOGLOBIN 11.4 G/DL (11.5-16.0); LYMPHOCYTES # (AUTO) 3.1 X 10^3 (1.0-4.0); LYMPHOCYTES % (AUTO) 33 % (12-44); MEAN CORPUSCULAR HEMOGLOBIN 30 PG (25-34); MEAN CORPUSCULAR HGB CONC 33 G/DL (32-36); MEAN CORPUSCULAR VOLUME 89 FL (80-99); MEAN PLATELET VOLUME 9.5 FL (7.4-10.4); MONOCYTES # (AUTO) 0.7 X 10^3 (0.0-1.0); MONOCYTES % (AUTO) 8 % (0-12); NEUTROPHILS # (AUTO) 5.4 X 10^3 (1.8-7.8); NEUTROPHILS % (AUTO) 58 % (42-75); PLATELET COUNT 429 10^3/uL (130-400); RED CELL DISTRIBUTION WIDTH 15.1 % (10.0-14.5); WHITE BLOOD COUNT 9.3 10^3/uL (4.3-11.0)
--- NOTE | 2018-05-26 20:45 | ED Abdominal Pain ---
General Chief Complaint: Abdominal/GI Problems Stated Complaint: R SIDE PAIN Nursing Triage Note: PT PRESENTS TO ED WITH COMPLAINTS OF RUQ PAIN STARTING AT 1700 TODAY. PT STATES SHE HAS BEEN VERY NAUSEAUS BUT HAS NOT VOMITED. Sepsis Screen: No Definite Risk Source of Information: Patient Exam Limitations: No Limitations History of Present Illness Date Seen by Provider: May 26, 2018 Time Seen by Provider: 20:10 Initial Comments 48-year-old female who presents to emergency room with complaints of right upper quadrant abdominal pain that started at 1700 this evening. She also reports nausea but no vomiting due to laboratory sent procedure. She denies fevers or diarrhea. Timing/Duration: 1-3 Hours Severity/Quality: Throbbing Location: RUQ Radiation: No Radiation Associated Symptoms: Nausea/Vomiting Allergies and Home Medications Allergies Coded Allergies: metoclopramide (Verified Allergy, Intermediate, 07/30/16) S.O.A. Penicillins (Verified Allergy, Mild, 03/10/16) Home Medications Albuterol Sulfate 1 Puff Puff, 2 PUFF IH Q6H PRN for SHORTNESS OF BREATH, ( Reported) Cetirizine HCl 10 Mg Capsule, 10 MG PO DAILY, (Reported) Insulin Glargine,Hum.rec.anlog 100 Unit/1 Ml Insuln.pen, 24 UNITS SC HS, ( Reported) Metformin HCl 1,000 Mg Tablet, 1,000 MG PO BID, (Reported) Montelukast Sodium 10 Mg Tablet, 10 MG PO HS, (Reported) Naproxen 500 Mg Tablet, 500 MG PO BID Prescribed by: NOEL CHIN on 01/19/18 0117 Pantoprazole Sodium 40 Mg Tablet.dr, 40 MG PO HS, (Reported) Sulfamethoxazole/Trimethoprim 1 Each Tablet, 1 EACH PO BID Prescribed by: LISS BAGLEY on 10/20/17 0937 Patient Home Medication List Home Medication List Reviewed: Yes Review of Systems Review of Systems Constitutional: no symptoms reported, see HPI Gastrointestinal: See HPI, Abdominal Pain, Nausea All Other Systems Reviewed Negative Unless Noted: Yes Past Wskiuha-Omzplo-Exqtma Hx Past Med/Social Hx: Reviewed Nursing Past Med/Soc Hx Patient Social History Alcohol Use: Denies Use Recreational Drug Use: No Smoking Status: Never a Smoker 2nd Hand Smoke Exposure: No Recent Foreign Travel: No Contact w/Someone Who Travel: No Recent Infectious Disease Expo: No Recent Hopitalizations: No Physical Abuse: No Sexual Abuse: No Mistreated: No Fear: No Immunizations Up To Date Tetanus Booster (TDap): Unknown PED Vaccines UTD: No Date of Pneumonia Vaccine: July 28, 2009 Date of Influenza Vaccine: Jan 09, 2017 Seasonal Allergies Seasonal Allergies: Yes Past Medical History Surgeries: Yes (LT/RT KNEE SCOPE 2012; ENDOSCOPY; EYE SURGERY; ANDREW FUNDOPLICATION 2016) Abdominal, Eye Surgery, Orthopedic Respiratory: Yes Asthma Currently Using CPAP: No Currently Using BIPAP: No Cardiac: No High Cholesterol Neurological: No Reproductive Disorders: No Female Reproductive Disorders: Denies Sexually Transmitted Disease: No HIV/AIDS: No Genitourinary: Yes UTI-Chronic Gastrointestinal: Yes (ESOPHAGEAL NARROWING) Gastroesophageal Reflux, Hiatal Hernia, Ulcer Musculoskeletal: Yes (LEFT KNEE SCOPE) Arthritis Endocrine: Yes Diabetes, Insulin dep HEENT: No Loss of Vision: Bilateral Hearing Impairment: Denies Cancer: No Psychosocial: No Integumentary: No Blood Disorders: No Adverse Reaction/Blood Tranf: No Family Medical History Reviewed Nursing Family Hx Arthritis 19 FATHER 19 MOTHER G8 SISTER Asthma 19 FATHER 19 MOTHER G8 SISTER Cataracts 19 MOTHER Diabetes mellitus 19 FATHER 19 MOTHER G8 SISTER FH: leukemia 19 FATHER Myocardial infarction 19 MOTHER Parkinson's disease 19 FATHER Thyroid disease 19 MOTHER Asthma, CAD Over 55 Years Old, Diabetes Physical Exam Vital Signs Vital Signs - First Documented 05/26/18 20:16 Temp 97.8 Pulse 86 Resp 20 B/P (MAP) 154/106 (122) Pulse Ox 100 Capillary Refill : Less Than 3 Seconds Height/Weight/BMI Height: 5'3.00" Weight: 178lbs. 0oz. 80.162546yn; 28.7 BMI Method:Stated General Appearance: WD/WN, no apparent distress Respiratory: chest non-tender, lungs clear, normal breath sounds, no respiratory distress, no accessory muscle use Cardiovascular: normal peripheral pulses, regular rate, rhythm, no edema, no gallop, no JVD, no murmur Gastrointestinal: normal bowel sounds, soft, no organomegaly, no pulsatile mass , tenderness (right upper quadrant tenderness) Extremities: normal capillary refill Neurologic/Psychiatric: alert, normal mood/affect, oriented x 3 Skin: normal color, warm/dry Progress/Results/Core Measures Results/Orders Lab Results Laboratory Tests Test 05/26/18 20:25 05/26/18 21:21 Range/Units White Blood Count 9.3 4.3-11.0 10^3/uL Red Blood Count 3.83 L 4.35-5.85 10^6/uL Hemoglobin 11.4 L 11.5-16.0 G/DL Hematocrit 34 L 35-52 % Mean Corpuscular Volume 89 80-99 FL Mean Corpuscular Hemoglobin 30 25-34 PG Mean Corpuscular Hemoglobin Concent 33 32-36 G/DL Red Cell Distribution Width 15.1 H 10.0-14.5 % Platelet Count 429 H 130-400 10^3/uL Mean Platelet Volume 9.5 7.4-10.4 FL Neutrophils (%) (Auto) 58 42-75 % Lymphocytes (%) (Auto) 33 12-44 % Monocytes (%) (Auto) 8 0-12 % Eosinophils (%) (Auto) 1 0-10 % Basophils (%) (Auto) 0 0-10 % Neutrophils # (Auto) 5.4 1.8-7.8 X 10^3 Lymphocytes # (Auto) 3.1 1.0-4.0 X 10^3 Monocytes # (Auto) 0.7 0.0-1.0 X 10^3 Eosinophils # (Auto) 0.1 0.0-0.3 10^3/uL Basophils # (Auto) 0.0 0.0-0.1 10^3/uL Sodium Level 135 135-145 MMOL/L Potassium Level 3.8 3.6-5.0 MMOL/L Chloride Level 108 H 98-107 MMOL/L Carbon Dioxide Level 18 L 21-32 MMOL/L Anion Gap 9 5-14 MMOL/L Blood Urea Nitrogen 16 7-18 MG/DL Creatinine 0.81 0.60-1.30 MG/DL Estimat Glomerular Filtration Rate > 60 BUN/Creatinine Ratio 20 Glucose Level 99 70-105 MG/DL Calcium Level 8.7 8.5-10.1 MG/DL Corrected Calcium 8.7 8.5-10.1 MG/DL Total Bilirubin 0.2 0.1-1.0 MG/DL Aspartate Amino Transf (AST/SGOT) 14 5-34 U/L Alanine Aminotransferase (ALT/SGPT) 8 0-55 U/L Alkaline Phosphatase 51 40-136 U/L Total Protein 7.0 6.4-8.2 GM/DL Albumin 4.0 3.2-4.5 GM/DL Amylase Level 64 25-125 U/L Lipase 52 8-78 U/L Urine Color YELLOW Urine Clarity SLIGHTLY CLOUDY Urine pH 5 5-9 Urine Specific [place] 1.015 L 1.016-1.022 Urine Protein 1+ H NEGATIVE Urine Glucose (UA) NEGATIVE NEGATIVE Urine Ketones NEGATIVE NEGATIVE Urine Nitrite NEGATIVE NEGATIVE Urine Bilirubin NEGATIVE NEGATIVE Urine Urobilinogen NORMAL NORMAL MG/DL Urine Leukocyte Esterase 1+ H NEGATIVE Urine RBC (Auto) 1+ H NEGATIVE Urine RBC RARE /HPF Urine WBC RARE /HPF Urine Squamous Epithelial Cells 5-10 /HPF Urine Crystals NONE /LPF Urine Bacteria TRACE /HPF Urine Casts PRESENT /LPF Urine Hyaline Casts RARE /LPF Urine Mucus NEGATIVE /LPF Urine Culture Indicated NO My Orders Orders - AIDEE SOUZA Comprehensive Metabolic Panel (05/26/18 20:15) Lipase (05/26/18 20:15) Amylase (05/26/18 20:15) Ua Culture If Indicated (05/26/18 20:15) Urine Bedside (05/26/18 20:15) Saline Lock/Iv-Start (05/26/18 20:15) Cbc With Automated Diff (05/26/18 20:15) Ct Abdomen/Pelvis W (05/26/18 20:15) Ondansetron Injection (Zofran Injectio (05/26/18 20:15) Iohexol Injection (Omnipaque 350 Mg/Ml 1 (05/26/18 21:00) Received Contrast (Hold Metformin- Contr (05/26/18 21:00) Ketorolac Injection (Toradol Injection) (05/26/18 21:30) Medications Given in ED Current Medications Medications Dose Ordered Sig/Hunter Route Start Time Stop Time Status Last Admin Dose Admin Iohexol 100 ml ONCE ONCE IV 05/26/18 21:00 05/26/18 21:16 DC 05/26/18 20:54 100 ML Ketorolac Tromethamine 30 mg ONCE ONCE IVP 05/26/18 21:30 05/26/18 21:31 DC 05/26/18 21:33 30 MG Ondansetron HCl 8 mg ONCE ONCE IVP 05/26/18 20:15 05/26/18 20:18 DC 05/26/18 20:31 8 MG Vital Signs/I&O 05/26/18 20:16 Temp 97.8 Pulse 86 Resp 20 B/P (MAP) 154/106 (122) Pulse Ox 100 Blood Pressure Mean: 122 Departure Impression Primary Impression: Right upper quadrant abdominal pain Disposition: 01 HOME, SELF-CARE Condition: Stable/Unchanged Departure-Patient Inst. Decision time for Depature: 22:02 Referrals: RIAZ REAL DO (PCP) Primary Care Physician CHERRY MI (Family) Primary Care Physician Patient Instructions: Acute Abdomen (Belly Pain), Adult (DC) Add. Discharge Instructions: Take medications as directed. Follow-up with Talha Mi on as scheduled and be sure to discuss the options of an ultrasound of your gallbladder for further evaluation of your pain. Return back to the emergency room for worsening symptoms or concerns as needed. All discharge instructions reviewed with patient and/or family. Voiced understanding. Scripts Ondansetron HCl (Zofran) 4 Mg Tab 4 MG PO Q4H, #14 TAB Prov: AIDEE SOUZA 05/26/18 Hydrocodone Bit/Acetaminophen (Hydrocodone/Acetaminophen 5/325mg Tablet) 1 Tab Tab 1 EACH PO Q4-6HR PRN for PAIN-MODERATE MDD 10, #14 TAB Prov: AIDEE SOUZA 05/26/18 AIDEE SOUZA May 26, 2018 20:45
[2018-05-26 20:52] LABS: ALANINE AMINOTRANSFERASE 8 U/L (0-55); ALKALINE PHOSPHATASE 51 U/L (40-136); AMYLASE 64 U/L (25-125); BILIRUBIN,TOTAL 0.2 MG/DL (0.1-1.0); BUN/CREATININE RATIO 20; CALCIUM 8.7 MG/DL (8.5-10.1); CARBON DIOXIDE 18 MMOL/L (21-32); CHLORIDE 108 MMOL/L (98-107); CREATININE SERUM 0.81 MG/DL (0.60-1.30); GFR ESTIMATED > 60; GLUCOSE 99 MG/DL (70-105); LIPASE 52 U/L (8-78); POTASSIUM 3.8 MMOL/L (3.6-5.0); SODIUM 135 MMOL/L (135-145)
[2018-05-26] MEDS ORDERED: HOLD METFORMIN - RECEIVED CONTRAST 20 ML VIAL IV SCH (21:00)
[2018-05-26] MEDS ORDERED: IOHEXOL 350 MG/ML 100 ML (OMNIPAQUE 350) VIAL IV ONE (21:00)
--- NOTE | 2018-05-26 21:12 | Diagnostic Imaging Report ---
PROCEDURE: CT abdomen and pelvis with contrast. TECHNIQUE: Multiple contiguous axial images were obtained through the abdomen and pelvis after administration of intravenous contrast. INDICATION: Right upper quadrant pain and nausea. COMPARISON: CT of the abdomen and pelvis of 10/20/2017 FINDINGS: Lower chest: The lung bases are clear. No pericardial or pleural effusion. Peritoneum: No free intraperitoneal air or fluid. Liver and biliary system: The liver is normal. The gallbladder is normal. No biliary duct dilation. Spleen and Pancreas: Spleen is normal. The pancreas enhances normally without mass lesion or peripancreatic inflammatory changes. Adrenals: Normal. tract: The kidneys enhance normally without suspicious mass or obstruction. Punctate nonobstructing 2 mm stone in the lower pole of the right kidney. Urinary bladder is distended without wall thickening. Multiple uterine fibroids are present and unchanged. The largest is at the level of the fundus measuring 3.2 x 2.5 cm. GI tract: Stomach is partially filled with fluid and food debris. No bowel obstruction. No pericolonic inflammatory changes. Normal appendix. Vasculature and Lymph nodes: Normal caliber aorta. No abdominal or pelvic lymphadenopathy. Musculoskeletal: No concerning osseous lesion. No abdominal, pelvic or inguinal hernias. IMPRESSION: 1. Punctate nonobstructing 2 mm stone in the lower pole of the right kidney is stable since 2018. No obstructive uropathy. 2. No acute inflammatory process in the abdomen or pelvis. 3. No abdominal, pelvic or inguinal hernia. Dictated by: Dictated on workstation # [id number]
[2018-05-26 21:29] LABS: BILIRUBIN,URINE NEGATIVE (NEGATIVE); CLARITY,URINE SLIGHTLY CLOUDY; COLOR,URINE YELLOW; GLUCOSE, URINE (UA) NEGATIVE (NEGATIVE); KETONES,URINE NEGATIVE (NEGATIVE); LEUKOCYTE ESTERASE ,URINE 1+ (NEGATIVE); NITRITE,URINE NEGATIVE (NEGATIVE); PH,URINE 5 (5-9); PROTEIN,URINE 1+ (NEGATIVE); UROBILINOGEN,URINE NORMAL (NORMAL)
[2018-05-26] MEDS ORDERED: KETOROLAC 30 MG/ML VIAL IVP ONE (21:30)
[2018-05-26 21:34] LABS: BACTERIA,URINE TRACE /HPF; HYALINE CASTS, URINE RARE /LPF; RBC,URINE RARE /HPF; WBC,URINE RARE /HPF
[2018-05-26] MEDS ORDERED: ACHD5005 PO (22:03)
[2018-05-26] MEDS ORDERED: ONDN4T PO (22:03)
[2018-05-26] MEDS ORDERED: RX-ONDANSETRON 4 MG ODT (ZOFRAN) PPK #4 PO STA (22:05)
[2018-05-26] MEDS ORDERED: RX-HYDROCODONE/APAP 5/325 MG #4 TAB PK PO PRN (22:15)
[2018-05-26 22:19] VITALS: BP 154/106
== END 2018-05-26 22:22 | disposition home or self-care (01) ==
LOC: EDUNIT# 20:07 → ER 20:08
DX: R10.11 Right upper quadrant pain (principal); J45.909 Unspecified asthma, uncomplicated; E78.00 Pure hypercholesterolemia, unspecified; K21.9 Gastro-esophageal reflux disease without esophagitis; E11.9 Type 2 diabetes mellitus without complications; Z87.440 Personal history of urinary (tract) infections; Z82.49 Family history of ischemic heart disease and other diseases of the circulatory system; Z80.6 Family history of leukemia; Z88.0 Allergy status to penicillin; Z88.8 Allergy status to other drugs, medicaments and biological substances; Z79.51 Long term (current) use of inhaled steroids; Z79.4 Long term (current) use of insulin; Z98.890 Other specified postprocedural states
CPT/HCPCS: 36415; 74177; 80053; 81000; 82150; 83690; 85025

== ENCOUNTER 2018-06-12 10:13 | Outpatient (CLI) | payer OTHER ==
[~2018-06-12] VITALS: Ht 160 cm; Wt 80.7 kg
[~2018-06-12 10:13] MED LIST changes: +ACHD5005 PO; +GUAI120013 PO; +ONDN4T PO
== END 2018-06-12 10:57 | disposition home or self-care (01) ==
LOC: PREOP 10:13
PROVIDERS: ATTEND Surgery
DX: Z01.818 Encounter for other preprocedural examination (principal)

== ENCOUNTER → 2018-06-13 | Outpatient (CLI) | payer OTHER ==
--- NOTE | 2018-06-13 16:59 | Diagnostic Imaging Report ---
INDICATION: Followup left breast stereotactic biopsy. Biopsy result was benign. COMPARISON: Correlation is made with prior left mammogram from 08/14/2017, 09/06/2017 as well as 09/23/2017. EXAMINATION: Left breast digital diagnostic mammogram with CAD. The current study was also evaluated with a Computer Aided Detection (CAD) system. FINDINGS: Post biopsy changes of upper outer left breast are noted. There is a marker clip in the upper-outer left breast. Previously noted cluster of microcalcifications has reduced, status post biopsy. There are scattered benign calcifications throughout the left breast. Left breast is heterogeneously dense, limiting sensitivity of mammography. No mass or malignant appearing microcalcifications are seen. Left axilla is unremarkable. IMPRESSION: Status post stereotactic biopsy. No mammographic features suspicious for malignancy are identified. ACR BI-RADS Category 2: Benign findings. Result letter will be mailed to the patient. Note: At least 10% of breast cancer is not imaged by mammography. Dictated on workstation # [id number]
== END ==
LOC: RAD 12:48
PROVIDERS: ATTEND Surgery
DX: R92.8 Other abnormal and inconclusive findings on diagnostic imaging of breast (principal); Z98.890 Other specified postprocedural states

== ENCOUNTER 2018-06-17 10:04 | Day surgery (SDC) | payer OTHER ==
[~2018-06-17] VITALS: Ht 160 cm; Wt 80.7 kg
--- OUTSIDE RECORDS SUMMARY | 2018-06-17 10:09 | XMS REPORT ---
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 Name Role Phone Migration, Doctor Unavailable Unavailable PROBLEMS Type Condition ICD9-CM Code FOQ08-VN Code Onset Dates Condition Status SNOMED Code Problem Abnormal mammogram of left breast R92.8 Active 737525138 Problem Esophageal spasm K22.4 Active 21500547 Problem Type 2 diabetes mellitus without complication E11.9 Active 99263637 Problem 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 Active 833278333 Problem Type 2 diabetes mellitus with hyperglycemia E11.65 Active 989419968 Problem Ulcer of esophagus without bleeding K22.10 Active 74696936 Problem Other chronic pain G89.29 Active 71576819 Problem Type 2 diabetes mellitus without complications E11.9 Active 328556416 Problem GERD (gastroesophageal reflux disease) K21.9 Active 675981600 Problem Acute seasonal allergic rhinitis, unspecified trigger J30.2 Active 420698836 Problem Uncontrolled type 2 diabetes mellitus with hyperglycemia E11.65 Active 176899897 Problem Seasonal allergic rhinitis, unspecified allergic rhinitis trigger J30.2 Active 204766118 Problem Calculus of gallbladder without cholecystitis without obstruction K80.20 Active 285507473 Problem Gastroesophageal reflux disease with esophagitis K21.0 Active 764691822 Problem Acute left-sided back pain with sciatica M54.42 Active 370079140 Problem Iron deficiency anemia due to chronic blood loss D50.0 Active 150867509 Problem Body mass index (BMI) of 33.0-33.9 in adult Z68.33 Active 508563563 Problem Other obesity due to excess calories E66.09 Active 653684655 ALLERGIES No Information ENCOUNTERS Encounter Location Date Diagnosis [facility] [address] [facility] [id number], [place] [address] May, [facility] [address] [facility] [place] [id number], [place] [address] May, [facility] [address] [id number], [place] [address] May, Calculus of gallbladder without cholecystitis without obstruction K80.20 ; Uncontrolled type 2 diabetes mellitus with hyperglycemia E11.65 and Breast mass, left N63.20 [place] [id number] [place] [address]56- [address]21 May, Uncontrolled type 2 diabetes mellitus with hyperglycemia E11.65 ; Breast mass, left N63.20 and Calculus of gallbladder without cholecystitis without obstruction K80.20 [place] [id number] [place] [address] 65455- 5535 Apr, Type 2 diabetes mellitus without complications E11.9 and Bronchitis J40 [facility] [place] [id number] [place] [address] 7[address]78 -2556 Apr, Viral upper respiratory tract infection J06.9 [place] [id number] [place] [address] 43380- 9390 Mar, [place] [id number] [place] [address] 45802- 4742 Oct, [place] [id number] [place] [address] 65425- 9193 Oct, Type 2 diabetes mellitus with hyperglycemia E11.65 [place] [id number] [place] [address] 89636- 8284 Sep, Acute pain of left knee M25.562 [facility] [place] [address] [id number] [place] [address] 90574 -0939 Sep, Right anterior knee pain M25.561 [place] [id number] [place] [address] 14032- 0290 Sep, Abnormal mammogram of left breast R92.8 [place] [id number] [place] [address] 27379- 6330 Sep, Abnormal mammogram of left breast R92.8 [place] [id number] [place] [address] 88490- 6126 13 Aug, 2017 [place] [id number] [place] [address] 77878- 2881 11 Aug, 2017 Abnormal mammogram of left breast R92.8 [place] [id number] [place] [address] 72173- 3341 08 Aug, 2017 [place] [id number] [place] [address] 48992- 3936 01 Aug, 2017 Encounter for well woman exam with routine gynecological exam Z01.419 ; Screen for STD (sexually transmitted disease) Z11.3 ; Screening breast examination Z12.31 ; Other obesity due to excess calories E66.09 and Body mass index (BMI) of 33.0-33.9 in adult Z68.33 [place] [id number] [place] [address] 74537- 7358 14 Jul, 2017 Type 2 diabetes mellitus with hyperglycemia E11.65 and Iron deficiency anemia due to chronic blood loss D50.0 [place] [id number] [place] [address] 49493- 3500 16 Jun, 2017 Acute left-sided back pain with sciatica M54.42 ; Type 2 diabetes mellitus without complications E11.9 and 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 [facility] [id number] [place] [address] 46666 [address]5636 Jun, Dysuria R30.0 and Lumbar back pain M54.5 [facility] [id number] [place] [address] 07692 -2531 Feb, Acute seasonal allergic rhinitis, unspecified trigger J30.2 [place] [id number] [place] [address] 20967- 2874 Feb, Acute posthemorrhagic anemia D62 [place] [id number] [place] [address] 10971- 2439 05 Feb, 2017 Acute posthemorrhagic anemia D62 [place] [id number] [place] [address] 30631- 1930 04 Feb, 2017 Type 2 diabetes mellitus without complication E11.9 and Dry skin L85.3 [place] [address] 38871- 2443 Dec, [facility] [address] [address]127 18 Nov, 2016 Weakness R53.1 and GERD (gastroesophageal reflux disease) K21.9 [place] [address] 22893- 0780 Nov, [place] [address] 23948- 7087 Sep, Type 2 diabetes mellitus without complications E11.9 [facility] [place] [address] 30176 [address] July, Dysuria R30.0 and Acute cystitis with hematuria N30.01 [facility] [place] [address] 55191 [address]6767 Jun, Seasonal allergic rhinitis, unspecified allergic rhinitis trigger J30.2 [place] [address] 87554- 8786 Jun, Hiatal hernia K44.9 and Ulcer of esophagus without bleeding K22.10 [place] [address] 58759- 2187 Jun, Gastroesophageal reflux disease with esophagitis K21.0 [facility] [address] [id number] Jun, [place] [address] [address]21[address]70 May, Type 2 diabetes mellitus with hyperglycemia E11.65 and 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 [place] [address] 21646- 7158 May, Other chronic pain G89.29 and Pain in left hip M25.552 [place] [id number] [place] [address] 93331- 8433 13 Apr, 2016 Nausea R11.0 [facility] [address] 72045- 5640 09 Apr, 2016 SOB (shortness of breath) R06.02 ; Coughing R05 and Type 2 diabetes mellitus without complication E11.9 [facility] [address] 18820 [address] Apr, Bronchitis J40 [place] [address] 96725- 4721 Mar, Hiatal hernia K44.9 and Bronchitis J40 [place] [address] 84373- 4534 Mar, [place] [address] 34312- 8195 Mar, [facility] [address] 74841- 6291 Jan, [place] [address] 84662- 6632 Dec, [facility] [id number] [place] [address] 67829- 2273 Dec, Esophageal spasm K22.4 [facility] [id number] [place] [address] 03285- 3983 Dec, [facility] [id number] [place] [address] 58832 -1101 Dec, Right upper quadrant pain R10.11 and Abdominal pain, unspecified location R10.9 [facility] [id number] [place] [address] 83886 -3725 Dec, Right upper quadrant pain R10.11 [facility] [id number] [place] [address] 89672- 8380 Nov, Type 2 diabetes mellitus without complication E11.9 and Right upper quadrant pain R10.11 [facility] [id number] [place] [address] 17451 -5499 Nov, Dysuria R30.0 and Abdominal pain, unspecified location R10.9 [place] [address] 89843- 1989 24 Aug, 2015 Chronic gastritis without bleeding, unspecified gastritis type K29.50 ; Dysuria R30.0 and Type 2 diabetes mellitus without complication E11.9 [place] [address] 68360- 2935 10 Aug, 2015 Gastroesophageal reflux disease, esophagitis presence not specified K21.9 and Acute cystitis with hematuria N30.01 [facility] [place] [address] 63899 -8183 Aug, Dysuria R30.0 [place] [address] 70631- 4839 July, [place] [address] 32579- 7376 Jun, [place] [address] 23762- 9269 May, Diabetes type 2, controlled E11.9 and Allergic rhinitis J30.9 [place] [address] 80137- 1379 Apr, Type 2 diabetes mellitus without complication E11.9 and Cough R05 [place] [id number] [place] [address] 01109- 3056 02 Apr, 2015 Vertigo R42 and Non-intractable vomiting with nausea, vomiting of unspecified type R11.2 [facility] [place] [address] 22798 -8106 Mar, Acute laryngopharyngitis J06.0 ; Acute diarrhea R19.7 and Acute bacterial sinusitis J01.90 [place] [address] [place] [address] Mar, Upper respiratory infection 465.9 [facility] [id number] [place] [address] 475386- 5090 Dec, Diabetes E11.9 [facility] [id number] [place] [address] 21794- 3303 10 Nov, 2014 Upper respiratory infection 465.9 [facility] [id number] [place] [address] 76959- 4808 Sep, [facility] [id number] [place] [address] 647208- 9138 Sep, Diabetes 250.00 [facility] [id number] [place] [address] 037080- 4532 July, Diabetes mellitus without mention of complication, type II or unspecified type, uncontrolled 250.02 and Cervicalgia 723.1 [facility] [id number] [place] [address] 12141- 3895 July, [facility] [id number] [place] [address] 03160- 0399 Jun, [facility] [id number] [place] [address] 45280- 5254 Jun, [facility] [address] [address] 279[address] May, [facility] [address], [place] [address] 3258 May, [facility] [address], [place] [address]- 6568 Apr, [facility] [address] [address] Apr, [facility] [address], [place] [address] 2656 Apr, [facility] [id number] [place] [address] [place] [address] 2792 Apr, [facility] [address] [id number] [place] [address]- 4981 Mar, [facility] [place] [facility] [address] [id number] [place] [address]- 7694 Mar, [facility] [place] [facility] [address] [id number] [place] [address]- 8110 Feb, [facility] [place] [facility] [address] [id number] [place] [address]- 0911 Feb, [facility] [place] [facility] [address] [id number] [place] [address]- 6072 Jan, [facility] [place] [facility] [address] [id number] [place] [address]- 5464 Jan, [facility] [place] [facility] [address] [id number] [place] [address]- 8286 Aug, [facility] [place] [facility] [address] [id number] [place] [address]- 5138 Aug, [facility] [place] [facility] [address] [id number] [place] [address]- 3681 July, [facility] [place] [facility] [address] [id number] [place] [address]- 8786 July, [facility] [place] [facility] [address] [id number] [place] [address]- 3712 Nov, [facility] [place] [facility] [address] [id number] [place] [address]- 9074 Nov, [facility] [place] [facility] [address] [id number] [place] [address]- 8873 Nov, [facility] [place] [facility] [address] [id number] [place] [address]- 8817 Sep, [facility] [place] [facility] [address] [id number] [place] [address]10 Aug, [facility] [place] [facility] [address] [id number] [place] [address]- 4823 July, [facility] [place] [facility] [address] [id number] [place] [address]- 2863 Jun, [facility] [place] [facility] [address] [id number] [place] [address]- 1381 Jun, [facility] [place] [facility] [address] [id number] [place] [address]- 1396 Jun, [facility] [place] [facility] [address] [id number] [place] [address]- 9424 Jun, [facility] [place] [facility] [address] [id number] [place] [address]- 8217 May, [facility] [place] [facility] [address] [id number] [place] [address]- 3704 May, [facility] [place] [facility] [address] [id number] [place] [address]- 2894 Jan, [facility] [place] [facility] [address] [id number] [place] [address]- 4650 Jan, [facility] [place] [facility] [address] [id number] [place] [address]- 2342 Dec, [facility] [place] [facility] [address] [id number] [place] [address]- 0785 Dec, [facility] [place] [facility] [address] [id number] [place] [address]- 9284 Dec, [facility] [place] [facility] [address] [id number] [place] [address]- 0419 Dec, [facility] [place] [facility] [address] [id number] [place] [address]- 6104 Dec, [facility] [place] [facility] [address] [id number] [place] [address]- 6502 Dec, [facility] [place] [facility] [address] [id number] [place] [address]- 4329 Dec, [facility] [address] [id number] [place] [address]- 1998 Aug, [facility] [address] [id number] [place] [id number] Apr, [facility] [address] [id number] [place] [address]- 2059 Apr, [facility] [address] [id number] [place] [address]- 9329 Apr, [facility] [address] [id number] [place] [address]- 6553 Apr, [facility] [address] [id number] [place] [address]- 5506 Apr, [facility] [address] [id number] [place] [address]- 7862 Dec, [facility] [place] [facility] [address] [id number], [place] [address]- 8120 14 Dec, 2010 [facility] [address] [id number], [place] [address]- 0289 Dec, [facility] [address] [facility] [place] [id number] [place] [address]- 6177 Dec, [facility] [address] [id number], [place] [address]- 8187 19 Feb, 2010 [facility] [place] [facility] [address] [id number], [place] [address]- 1987 16 Feb, 2010 [facility] [place] [facility] [address] [id number] [place] [address]- 1396 13 Feb, 2010 [facility] [place] [facility] [address] [facility] [place] [id number] [place] [address]- 3945 13 Feb, 2010 [facility] [place] [facility] [address] [id number], [place] [address]- 5758 14 Aug, 2009 [facility] [place] [facility] [address] [facility] [place] [id number] [place]689 May, IMMUNIZATIONS No Known Immunizations SOCIAL HISTORY Never Assessed REASON FOR VISIT [facility] PLAN OF CARE VITAL SIGNS MEDICATIONS Medication Instructions Dosage Frequency Start Date End Date Duration Status Lovastatin 40 mg take 1 tablet by Oral route with the evening meal 1 time per day voucher 1st fill only Mar, Active Levemir 100 unit/mL inject 33 Units 1 time per day voucher 1st fill only Mar, Active Zithromax Z-Shaun 250 mg 2 tablet by Oral route 1 time per day for 1 days then take 1 tab daily on days 2-5 voucher July, Active Naproxen 500 mg take 1 tablet (500 mg) by oral route 2 times per day with food May, Active PredniSONE 20 mg 2 tablet by Oral route 1 time per day for 5 day(s) voucher Apr, Active Lisinopril 5 mg take 1 tablet by Oral route 1 time per day voucher 1st fill only Mar, Active Glucophage 1,000 mg take 1 tablet 2 times per day voucher 1st fill only Mar, Active RESULTS No Results PROCEDURES No Known procedures INSTRUCTIONS MEDICATIONS ADMINISTERED No Known Medications MEDICAL (GENERAL) HISTORY Type Description Date Medical History type II diabetes Medical History allergies Medical History asthma Medical History hyperlipidemia Medical History hiatal hernia Surgical History tear duct surgery as an Surgical History Left knee surgery 10/2012 Surgical History hital hernia repair 07/25/16 Surgical History breast biopsy 09/23/2017 Surgical History Right knee meniscus repair 02/11/18 Hospitalization History surgery Hospitalization History ER for a UTI 11/27/15 Hospitalization History Upper abdominal pain, Ileus-[facility] 06/08/16 Hospitalization History [facility] ER, Gallbladder attack 05/26/2018
[2018-06-17 10:10] VITALS: BP 150/91
[2018-06-17] MEDS ORDERED: CLINDAMYCIN 600 MG/50 ML IVPB 50 ML IV ONE (10:15)
[2018-06-17] MEDS ORDERED: IOPAMIDOL 61% 30 ML (ISOVUE 300) VIAL IV ONE (10:31)
[2018-06-17] MEDS ORDERED: BUP/EPI 0.5% 1:200,000 (SENSORCAINE) 30 ML VIAL ONE (10:31)
[2018-06-17] MEDS ORDERED: LIDOCAINE 1% INJ 20 ML 20 ML VIAL ONE (10:31)
[2018-06-17] MEDS ORDERED: LIDOCAINE PF 1% 5 ML (XYLOCAINE) AMP ONE (10:45)
[2018-06-17] MEDS: LACTATED RINGERS 1,000 ML IV PRN ×2 (10:50→13:00)
[2018-06-17] MEDS ORDERED: DEXAMETHASONE 10 MG/ML (DECADRON) 1 ML VIAL ONE (10:52)
[2018-06-17] MEDS ORDERED: ROCURONIUM 10 MG/ML 5 ML SYRINGE IV ONE (10:52)
[2018-06-17] MEDS ORDERED: proPOfol 200 MG/20 ML (DIPRIVAN) VIAL IV ONE (10:52)
[2018-06-17] MEDS ORDERED: ONDANSETRON 4 MG/2 ML (SDV) Z0FRAN ONE (10:52)
[2018-06-17] MEDS ORDERED: LIDOCAINE PF 2% 5 ML (XYLOCAINE) VIAL ONE (10:52)
[2018-06-17] MEDS ORDERED: MIDAZOLAM 2 MG/2 ML (VERSED) VIAL ONE (10:53)
[2018-06-17] MEDS ORDERED: fentaNYL INJECTION 100 MCG/2 ML AMP ONE ×2 (10:53→12:50)
[2018-06-17] MEDS ORDERED: SEVOFLURANE (ULTANE) 15 ML INHAL SOLN ONE ×2 (10:57→12:02)
[2018-06-17] MEDS ORDERED: NEOSTIGMINE 1 MG/ML 5 ML SYRINGE ONE (10:57)
[2018-06-17] MEDS ORDERED: GLYCOPYRROLATE 0.2 MG/ML (ROBINUL) 2 ML VIAL ONE (10:57)
[2018-06-17] MEDS ORDERED: FAMOTIDINE 20MG/2ML IV (PEPCID) IV ONE (11:15)
[2018-06-17] MEDS ORDERED: ONDANSETRON 4 MG/2 ML (SDV) Z0FRAN IV ONE (11:15)
--- NOTE | 2018-06-17 12:01 | Progress Note-Pre Operative ---
Pre-Operative Progress Note H&P Reviewed The H&P was reviewed, patient examined and no changes noted. Time Seen by Provider: 11:57 Date H&P Reviewed: Jun 17, 2018 Time H&P Reviewed: 11:58 Pre-Operative Diagnosis: fátima/fátima VALERIA CONTRERAS DO Jun 17, 2018 12:01
--- NOTE | 2018-06-17 13:10 | Progress Note-Post Operative ---
Post-Operative Progess Note Surgeon (s)/Senior Core Java Developer (s) Surgeon VALERIA CONTRERAS DO Senior Core Java Developer: [place] Pre-Operative Diagnosis fátima/fátima Post-Operative Diagnosis Same Procedure & Operative Findings Date of Procedure 06/17/18 Procedure Performed/Findings Lap fátima with IOC Anesthesia Type GET Estimated Blood Loss Estimated blood loss (mL): scant Specimens/Packing Specimens Removed GB and contents VALERIA CONTRERAS DO Jun 17, 2018 13:10
[2018-06-17] MEDS ORDERED: ACHD5005 PO (13:12)
--- NOTE | 2018-06-17 13:13 | Discharge Inst-Surgical ---
Discharge Inst-Surgical Depart Medication/Instructions New, Converted or Re-Newed RX: RX Given to Pt/Family Patient Instructions Follow up Appt: Make appointment for 1 week. [phone] Instructions: No lifting greater than 20 pounds. No strenuous activity. May shower in 24 hours, no tub bath or soaking. Use incentive spirometer at home as directed. No Smoking Skin/Wound Care: May remove bandages in am. You need to leave the Dermabond on incision it will fall off on it's own. Symptoms to Report: Appetite Changes, Extremity Discoloration, Numbness/Tingling, Swelling Increased , Bleeding Excessive, Eyesight Changes, Pain Increased, Urine Color Change, Constipation(Persistent), Fever over 101 degree F, Pain/Pressure in chest, Urinating Difficulty, Cough Up/Vomit Blood, Heart Beat Irreg/Pounding, Pain/ Pressure in jaw, Cramps in feet or legs, Lightheadedness, Pain/Pressure in shoulder, Diarrhea(Persistent), Memory Changes Suddenly, Questions/Concerns, Weight gain consecutive days, Dizziness/Fainting, Nausea/Vomiting, Shortness of Breath, Weight gain over 2 pounds If questions or concerns contact your physician Or seek help at emergency department. Activity Activity as Tolerated: Yes Activity Instructions: Avoid Stress to Incision Driving Instructions: No Driving/Refer to Diet Discharge Diet: Avoid Fatty Foods, Low Fat/Low Cholesterol Diet After 24 Hours: Clear Liquid if Nauseous If Any Problems/Questions/Issu: Contact Your Physician, Go to Emergency Room Skin/Wound Care Infection Signs and Symptoms: Increased Redness, Foul Odor of Wound, Increased Drainage, Skin Itchy or Has a Rash, Increased Swelling, Temperature Above 101 F Wound Care Comment: Heating pad to shoulder or neck tonight for pain Bathing Instructions: Shower Stitches/[place]/Dermabond Dis: Dermabond Ice Pack: Ice On and Off Site (as needed for pain at incision sites) VALERIA CONTRERAS DO Jun 17, 2018 13:13
[2018-06-17] MEDS ORDERED: ONDANSETRON 4 MG/2 ML (SDV) Z0FRAN IVP PRN (13:15)
[2018-06-17] MEDS ORDERED: morphine INJ 10 MG/ML 1ML (SYR OR VIAL) IVP ONE (13:15)
[2018-06-17 14:15] VITALS: BP 121/74
[2018-06-17] MEDS ORDERED: HYDROcodone/APAP 5 MG/325 MG (LORTAB) TAB PO ONE (14:30)
[2018-06-17] MEDS ORDERED: HYDROcodone/APAP 5 MG/325 MG (LORTAB) TAB ONE (14:37)
--- NOTE | 2018-06-17 14:49 | NUR ---
HAS HAD CRACKERS AND PO FLUIDS. LORTAB 5/325 MG, ONE TAB, GIVEN PO FOR C/O MID ABD PAIN RATED 7. LARGE BANDAIDS X3 D/I TO ABD SURGICAL SITES.
[2018-06-17 14:50] VITALS: BP 136/74
[2018-06-17 15:20] VITALS: BP 124/67
[2018-06-17 15:40] VITALS: BP 124/67
--- NOTE | 2018-06-17 15:40 | NUR ---
ALERT, PAIN RATED 2-3. NO CHANGE IN SITE ASSESSMENT. HAS BEEN UP TO BR TO VOID, GAIT STEADY. STATES SHE IS READY FOR DISMISSAL.
--- NOTE | 2018-06-17 17:15 | OPERATIVE REPORT ---
DATE OF SERVICE: 06/17/2018 PREOPERATIVE DIAGNOSES: Cholelithiasis, cholecystitis. POSTOPERATIVE DIAGNOSES: Cholelithiasis, cholecystitis. PROCEDURE: Laparoscopic cholecystectomy with intraoperative cholangiogram. SURGEON: Buster Botello DO EXTRUSION DIE COORDINATOR: Eliel Botello DO ANESTHESIA: General endotracheal tube. SPECIMEN: Gallbladder and contents. BLOOD LOSS: Scant. FLUIDS: Per anesthesia. POSTOPERATIVE CONDITION: Stable. INDICATION FOR PROCEDURE: The patient is a 48-year-old female, who has been having some abdominal pain since she had fried and fatty foods and had an ultrasound, which showed stones and needed to get her gallbladder removed. FINDINGS: The patient had some stones in the gallbladder, did not really see any adhesions in the gallbladder, removed and sent to pathology. PROCEDURE NOTE: After informed consent was obtained, the patient was brought to the operating room, placed on the table in supine position. She was sterilely prepped and draped in normal fashion. Local lidocaine was used to infiltrate the skin above the umbilicus. Made incision with #11 blade, carried down through the skin into subcutaneous tissue and deepened down to subcutaneous tissue with Bovie electrocautery down to the fascia. Fascia was incised with Bovie electrocautery and bluntly entered the abdomen, swept a finger around. I then placed 11 mm trocar port under direct visualization. Created pneumoperitoneum and then placed 3 more ports in normal fashion using local lidocaine, 11 blade for stab incision and VersaStep system, all done under direct visualization, one subxiphoid and 2 in the right upper quadrant. The patient was then placed in reverse Trendelenburg and rotated left, able to visualize the gallbladder, grasped at the fundus and taken in superior direction and then grasped down the Myesha's pouch and pulled in the inferolateral direction and start dissecting out the cystic duct and cystic artery. I was able to get on the cystic duct, placed 1 clip distally and then one distally and 2 proximally on the cystic artery. Cut the cystic duct usp through Metzenbaum scissors. Placed a cholangiogram catheter and shot a cholangiogram. Good spillage of dye down the common bile duct into the small intestine as well as up into common hepatic and right and left hepatics. Removed the cholangiogram catheter, placed 2 clips proximally on the cystic duct and cut the cystic duct and the cystic artery with Metzenbaum scissors. Removed the gallbladder from the bed of liver with L-hook cautery, which was completely removed, placed a bag in the abdomen, placed the gallbladder in the bag and then removed through the supraumbilical incision. Placed the port back in the abdomen, copiously irrigated with normal saline, suctioned this out. Hemostasis was obtained from the bed of liver with L-hook cautery. No other bleeding, no other obvious pathology. Removed the scope, placed the patient supine and then allowed the pneumoperitoneum to escape as well as suctioned out. Closed the supraumbilical incision with 0 Vicryl running suture and copiously irrigated all incisions with normal saline and closed the 3 small 5 mm incisions with a single interrupted 4-0 undyed Monocryl subcuticular stitch. Closed the supraumbilical incision with 3 interrupted 4-0 undyed Monocryl subcuticular stitches. Area was cleaned and dried. Dermabond was placed as well as Band-Aids. The patient was then transferred to recovery room in stable condition. Sponge, instrument and needle count were correct at the end of the case. Dr. Botello assisted in this case helping to make incisions, closed incisions, identify anatomy and hold the anatomy away. Job ID: [id number] DocumentID: [id number] Dictated Date: 06/17/2018 15:24:59 Solution Architect Date: 06/17/2018 17:14:32 Dictated By: BUSTER BOTELLO DO
--- NOTE | 2018-06-17 20:15 | Diagnostic Imaging Report ---
EXAMINATION: Fluoroscopy. INDICATION: Abdominal pain. FINDINGS: Fluoroscopic assistance was provided for Dr. Botello during his operative cholangiogram. 12 seconds of fluoroscopy time was utilized. More than 60 spot films of the right upper quadrant were received from the OR. There are laparoscopic devices in place. There has been opacification of the common bile duct via a cystic duct catheter. The duct does not appear to be dilated and there is no defect within the duct to suggest retained calculus. However, a small portion of the duct was obscured by one of the instruments. Contrast was seen extending into the small bowel. IMPRESSION: 1. Fluoroscopic assistance was provided for Dr. Botello. 2. The common bile duct, where visualized shows no evidence for retained calculus. Dictated by: Dictated on workstation # [id number]
== END 2018-06-17 15:40 | disposition home or self-care (01) ==
LOC: SDC 10:04
PROVIDERS: ATTEND Surgery
DX: K81.1 Chronic cholecystitis (principal); E11.9 Type 2 diabetes mellitus without complications; K21.9 Gastro-esophageal reflux disease without esophagitis; J45.909 Unspecified asthma, uncomplicated; Z79.4 Long term (current) use of insulin; Z79.899 Other long term (current) drug therapy
CPT/HCPCS: 82962; 84703; 87081

== ENCOUNTER 2018-07-19 00:22 | Emergency (ER) | payer OTHER ==
[~2018-07-19] VITALS: Ht 160 cm; Wt 81.2 kg
--- OUTSIDE RECORDS SUMMARY | 2018-07-19 00:28 | XMS REPORT ---
Author Author Migration, Doctor Organization [facility] Address Unknown Phone Unavailable Care Team Providers Care Associate Brand Manager Name Role Phone Migration, Doctor Unavailable Unavailable PROBLEMS Type Condition ICD9-CM Code HVY75-JC Code Onset Dates Condition Status SNOMED Code Problem Abnormal mammogram of left breast R92.8 Active 439242490 Problem Esophageal spasm K22.4 Active 59048925 Problem Type 2 diabetes mellitus without complication E11.9 Active 04165167 Problem longterm current use of insulin Z79.4 Active 130155378 Problem Type 2 diabetes mellitus with hyperglycemia E11.65 Active 453714495 Problem Ulcer of esophagus without bleeding K22.10 Active 56621158 Problem Other chronic pain G89.29 Active 05685458 Problem Type 2 diabetes mellitus without complications E11.9 Active 866750356 Problem GERD (gastroesophageal reflux disease) K21.9 Active 790666176 Problem Acute seasonal allergic rhinitis, unspecified trigger J30.2 Active 772207873 Problem Uncontrolled type 2 diabetes mellitus with hyperglycemia E11.65 Active 493851647 Problem Seasonal allergic rhinitis, unspecified allergic rhinitis trigger J30.2 Active 450075560 Problem Calculus of gallbladder without cholecystitis without obstruction K80.20 Active 429671954 Problem Gastroesophageal reflux disease with esophagitis K21.0 Active 580153857 Problem Acute left-sided back pain with sciatica M54.42 Active 208981426 Problem Iron deficiency anemia due to chronic blood loss D50.0 Active 145771985 Problem Body mass index (BMI) of 33.0-33.9 in adult Z68.33 Active 833343802 Problem Other obesity due to excess calories E66.09 Active 382921309 ALLERGIES No Information ENCOUNTERS Encounter Location Date Diagnosis [facility] [address] [facility] [id number] [address] May, [facility] [address] [facility] [id number], [place] [address] May, [facility] [address] [id number] [address] May, Calculus of gallbladder without cholecystitis without obstruction K80.20 ; Uncontrolled type 2 diabetes mellitus with hyperglycemia E11.65 and Breast mass, left N63.20 [place] [address] [place] [id number] [place] [address]22- 8137 May, Uncontrolled type 2 diabetes mellitus with hyperglycemia E11.65 ; Breast mass, left N63.20 and Calculus of gallbladder without cholecystitis without obstruction K80.20 [place] [address] [place] [id number] [place] [address] 83449- 4477 Apr, Type 2 diabetes mellitus without complications E11.9 and Bronchitis J40 [facility] [place] [address] [id number] [place] [address] 64883 -6668 Apr, Viral upper respiratory tract infection J06.9 [place] [address] [place] [id number] [place] [address] 98573- 3158 Mar, [place] [address] [id number] [place] [address] 68486- 2768 Oct, [place] [address] [place] [id number] [place] [address] 57383- 2201 Oct, Type 2 diabetes mellitus with hyperglycemia E11.65 [place] [address] [place] [id number] [place] [address] 40443- 1314 Sep, Acute pain of left knee M25.562 [facility] [place] [address] [place] [id number] [place] [address] 34671 -7891 Sep, Right anterior knee pain M25.561 [place] [address] [place] [id number] [place] [address] 60396- 4087 Sep, Abnormal mammogram of left breast R92.8 [place] [address] [place] [id number] [place] [address] 69298- 7640 Sep, Abnormal mammogram of left breast R92.8 [place] [address] [place] [id number] [place] [address] 85602- 5408 13 Aug, 2017 [place] [address] [place] [id number] [place] [address] 61710- 1096 11 Aug, 2017 Abnormal mammogram of left breast R92.8 [place] [address] [place] [id number] [place] [address] 63383- 5848 08 Aug, 2017 [place] [address] [place] [place] [id number] [place] [address] 59279- 7459 01 Aug, 2017 Encounter for well woman exam with routine gynecological exam Z01.419 ; Screen for STD (sexually transmitted disease) Z11.3 ; Screening breast examination Z12.31 ; Other obesity due to excess calories E66.09 and Body mass index (BMI) of 33.0-33.9 in adult Z68.33 [place] [address] [place] [id number] [place] [address] 47711- 6716 14 Jul, 2017 Type 2 diabetes mellitus with hyperglycemia E11.65 and Iron deficiency anemia due to chronic blood loss D50.0 [place] [address] [place] [id number] [place] [address] 04819- 4362 16 Jun, 2017 Acute left-sided back pain with sciatica M54.42 ; Type 2 diabetes mellitus without complications E11.9 and longterm current use of insulin Z79.4 [facility] [id number] [place] [address]342 [address]3459 Jun, Dysuria R30.0 and Lumbar back pain M54.5 [facility] [id number] [place] [address] 39570 -9239 Feb, Acute seasonal allergic rhinitis, unspecified trigger J30.2 [place] [address] [place] [id number] [place] [address] 12073- 9199 Feb, Acute posthemorrhagic anemia D62 [place] [address] [place] [id number] [place] [address] 64580- 6940 05 Feb, 2017 Acute posthemorrhagic anemia D62 [place] [address] [place] [id number] [place] [address] 20910- 6159 04 Feb, 2017 Type 2 diabetes mellitus without complication E11.9 and Dry skin L85.3 [place] [address] 96679- 6456 Dec, [facility] [address] 10861 -8258 18 Nov, 2016 Weakness R53.1 and GERD (gastroesophageal reflux disease) K21.9 [place] [address] 08500- 5179 Nov, [place] [address] 37905- 7902 Sep, Type 2 diabetes mellitus without complications E11.9 [facility] [place] [address] 26089 [address]1271 July, Dysuria R30.0 and Acute cystitis with hematuria N30.01 [facility] [place] [address] 45998 -4375 Jun, Seasonal allergic rhinitis, unspecified allergic rhinitis trigger J30.2 [place] [address] 97207- 1229 Jun, Hiatal hernia K44.9 and Ulcer of esophagus without bleeding K22.10 [place] [address] 34816- 3642 Jun, Gastroesophageal reflux disease with esophagitis K21.0 [facility] [address] [id number] Jun, [place] [address] 96204- 9874 May, Type 2 diabetes mellitus with hyperglycemia E11.65 and longterm current use of insulin Z79.4 [place] [address] 99083- 7389 May, Other chronic pain G89.29 and Pain in left hip M25.552 [place] [address] [place] [id number] [place] [address] 85535- 9643 13 Apr, [address] [facility] [address] 60899- 3370 09 Apr, 2016 SOB (shortness of breath) R06.02 ; Coughing R05 and Type 2 diabetes mellitus without complication E11.9 [facility] [address] 77549 -9005 Apr, Bronchitis J40 [place] [address] 94386- 9292 Mar, Hiatal hernia K44.9 and Bronchitis J40 [place] [address] 96450- 0366 Mar, [place] [address] 51795- [address]00 Mar, [facility] [address] 40695- 4043 Jan, [place] [address] 20038- 0614 Dec, [facility] [address] [place] [id number] [place] [address] 58632- 9579 Dec, Esophageal spasm K22.4 [facility] [address] [place] [id number] [place] [address] 79554- 1754 Dec, [facility] [address] [place] [id number] [place] [address] 76972 -5789 Dec, Right upper quadrant pain R10.11 and Abdominal pain, unspecified location R10.9 [facility] [address] [id number] [place] [address] 61384 -7366 Dec, Right upper quadrant pain R10.11 [facility] [address] [place] [address] [id number] [place] [address] 15002- 2788 Nov, Type 2 diabetes mellitus without complication E11.9 and Right upper quadrant pain R10.11 [facility] [address] [place] [id number] [place] [address] 11512 -2645 Nov, Dysuria R30.0 and Abdominal pain, unspecified location R10.9 [place] [address] 59788- 8161 24 Aug, 2015 Chronic gastritis without bleeding, unspecified gastritis type K29.50 ; Dysuria R30.0 and Type 2 diabetes mellitus without complication E11.9 [place] [address] 58442- 2516 10 Aug, 2015 Gastroesophageal reflux disease, esophagitis presence not specified K21.9 and Acute cystitis with hematuria N30.01 [facility] [place] [address] 25272 -7748 Aug, Dysuria R30.0 [place] [address] 02354- 8326 July, [place] [address] 75904- 5343 Jun, [place] [address] 44480- 9898 May, Diabetes type 2, controlled E11.9 and Allergic rhinitis J30.9 [place] [address] 31013- 5036 Apr, Type 2 diabetes mellitus without complication E11.9 and Cough R05 [place] [address] [place] [id number] [place] [address] 57563- 6335 02 Apr, 2015 Vertigo R42 and Non-intractable vomiting with nausea, vomiting of unspecified type R11.2 [facility] [place] [address] 29478 -4720 Mar, Acute laryngopharyngitis J06.0 ; Acute diarrhea R19.7 and Acute bacterial sinusitis J01.90 [place] [address] [place] [address] Mar, Upper respiratory infection 465.9 [facility] [address] [place] [id number] [place] [address] 141594- 1804 Dec, Diabetes E11.9 [facility] [address] [place] [id number] [place] [address] 99103- 6947 10 Nov, 2014 Upper respiratory infection 465.9 [facility] [address] [place] [id number] [place] [address] 52885- 2990 Sep, [facility] [address] [place] [id number] [place] [address] 624165- 8113 Sep, Diabetes 250.00 [facility] [address] [place] [address] [id number] [place] [address] 416510- 7313 July, Diabetes mellitus without mention of complication, type II or unspecified type, uncontrolled 250.[address] [facility] [address] [place] [id number] [place] [address] 46870- 7393 July, [facility] [address] [id number] [place] [address] 55426- 5153 Jun, [facility] [address] [place] [id number] [place] [address] 45553- 7071 Jun, [facility] [address] [address] May, [facility] [address] [address]29 May, [facility] [address] [address] Apr, [facility] [address] Apr, [facility] [address] [address] Apr, [facility] [address] [place] [address] [id number] [place] [address] [place] [address]- 5262 Apr, [facility] [address] [id number] [place] [address]- 3586 Mar, [facility] [place] [facility] [address] [id number] [place] [address]- 2748 Mar, [facility] [place] [facility] [address] [id number] [place] [address]- 5508 Feb, [facility] [place] [facility] [address] [id number] [place] [address]- 7152 Feb, [facility] [place] [facility] [address] [id number] [place] [address]- 0912 Jan, [facility] [place] [facility] [address] [id number] [place] [address]- 0783 Jan, [facility] [place] [facility] [address] [id number] [place] [address]- 6744 Aug, [facility] [place] [facility] [address] [id number] [place] [address]- 6749 Aug, [facility] [place] [facility] [address] [id number] [place] [address]- 1306 July, [facility] [place] [facility] [address] [id number] [place] [address]- 6880 July, [facility] [place] [facility] [address] [id number] [place] [address]- 4013 Nov, [facility] [place] [facility] [address] [id number] [place] [address]- 5787 Nov, [facility] [place] [facility] [address] [id number] [place] [address]- 6678 Nov, [facility] [place] [facility] [address] [id number] [place] [address]- 3943 Sep, [facility] [place] [facility] [address] [id number] [place] 2309 Aug, [facility] [place] [facility] [address] [id number] [place] [address]- 2662 July, [facility] [place] [facility] [address] [id number] [place] [address]- 5671 Jun, [facility] [place] [facility] [address] [id number] [place] [address]- 3857 Jun, [facility] [place] [facility] [address] [id number] [place] [address]- 9599 Jun, [facility] [place] [facility] [address] [id number] [place] [address]- 3010 Jun, [facility] [place] [facility] [address] [id number] [place] [address]- 7235 May, [facility] [place] [facility] [address] [id number] [place] [address]- 3131 May, [facility] [place] [facility] [address] [id number] [place] [address]- 2794 Jan, [facility] [place] [facility] [address] [id number] [place] [address]- 4338 Jan, [facility] [place] [facility] [address] [id number] [place] [address]- 3095 Dec, [facility] [place] [facility] [address] [id number] [place] [address]- 8896 Dec, [facility] [place] [facility] [address] [id number] [place] [address]- 9054 Dec, [facility] [place] [facility] [address] [id number] [place] [address]- 6361 Dec, [facility] [place] [facility] [address] [id number] [place] [address]- 5735 Dec, [facility] [place] [facility] [address] [id number] [place] [address]- 9107 Dec, [facility] [place] [facility] [address] [id number] [place] [address]- 7886 Dec, [facility] [address] [id number] [place] [address]- 7641 Aug, [facility] [address] [id number] [place] [id number] Apr, [facility] [address] [id number] [place] [address]- 0593 Apr, [facility] [address] [id number] [place] [address]- 7508 Apr, [facility] [address] [id number] [place] [address]- 1212 Apr, [facility] [address] [id number] [place] [address]- 7536 Apr, [facility] [address] [id number] [place] [address]- 5376 Dec, [facility] [place] [facility] [address] [id number], [place] [address]- 2183 14 Dec, 2010 [facility] [address] [id number], [place] [address]- 0530 Dec, [facility] [address] [facility] [id number] [place] [address]- 6203 Dec, [facility] [address] [id number], [place] [address]- 7430 19 Feb, 2010 [facility] [place] [facility] [address] [id number], [place] [address]- 9593 16 Feb, 2010 [facility] [place] [facility] [address] [id number] [place] [address]- 1506 13 Feb, 2010 [facility] [place] [facility] [address] [facility] [id number] [place] [address]- 3181 13 Feb, 2010 [facility] [place] [facility] [address] [id number], [place] [address]- 4945 14 Aug, 2009 [facility] [place] [facility] [address] [facility] [id number] [place] [address] May, IMMUNIZATIONS No Known Immunizations SOCIAL HISTORY Never Assessed REASON FOR VISIT EMR-[facility] PLAN OF CARE VITAL SIGNS MEDICATIONS Unknown [...] Hospitalization History Upper abdominal pain, [facility] 06/08/16 Hospitalization History [facility] ER, Gallbladder attack 05/26/2018
--- OUTSIDE RECORDS SUMMARY | 2018-07-19 00:28 | XMS REPORT ---
Author Author Migration, Doctor Organization [facility] Address Unknown Phone Unavailable Care Team Providers Care Steel Manager Name Role Phone Migration, Doctor Unavailable Unavailable PROBLEMS Type Condition ICD9-CM Code JBW38-PS Code Onset Dates Condition Status SNOMED Code Problem Abnormal mammogram of left breast R92.8 Active 086295380 Problem Esophageal spasm K22.4 Active 62520016 Problem Type 2 diabetes mellitus without complication E11.9 Active 25714204 Problem detention current use of insulin Z79.4 Active 445176635 Problem Type 2 diabetes mellitus with hyperglycemia E11.65 Active 990595613 Problem Ulcer of esophagus without bleeding K22.10 Active 00976127 Problem Other chronic pain G89.29 Active 43076540 Problem Type 2 diabetes mellitus without complications E11.9 Active 721716026 Problem GERD (gastroesophageal reflux disease) K21.9 Active 786695251 Problem Acute seasonal allergic rhinitis, unspecified trigger J30.2 Active 833231312 Problem Uncontrolled type 2 diabetes mellitus with hyperglycemia E11.65 Active 569325460 Problem Seasonal allergic rhinitis, unspecified allergic rhinitis trigger J30.2 Active 983898060 Problem Calculus of gallbladder without cholecystitis without obstruction K80.20 Active 540738648 Problem Gastroesophageal reflux disease with esophagitis K21.0 Active 539373137 Problem Acute left-sided back pain with sciatica M54.42 Active 634047445 Problem Iron deficiency anemia due to chronic blood loss D50.0 Active 099802745 Problem Body mass index (BMI) of 33.0-33.9 in adult Z68.33 Active 358792741 Problem Other obesity due to excess calories E66.09 Active 595713571 ALLERGIES No Information ENCOUNTERS Encounter Location Date Diagnosis [facility] [address] [facility] [id number] [address] May, [facility] [address] [facility] [id number] [address] May, [facility] [address] [id number] [address] May, Calculus of gallbladder without cholecystitis without obstruction K80.20 ; Uncontrolled type 2 diabetes mellitus with hyperglycemia E11.65 and Breast mass, left N63.20 [place] [id number] [place] [address] 88297- 7294 May, Uncontrolled type 2 diabetes mellitus with hyperglycemia E11.65 ; Breast mass, left N63.20 and Calculus of gallbladder without cholecystitis without obstruction K80.20 [place] [id number] [place] [address] 82698- 4361 Apr, Type 2 diabetes mellitus without complications E11.9 and Bronchitis J40 [facility] [place] [id number] [place] [address] 78252 -5467 Apr, Viral upper respiratory tract infection J06.9 [place] [id number] [place] [address] 67237- 0019 Mar, [place] [id number] [place] [address] 78922- 4166 Oct, [place] [id number] [place] [address] 22299- 1537 Oct, Type 2 diabetes mellitus with hyperglycemia E11.65 [place] [id number] [place] [address] 60239- 5177 Sep, Acute pain of left knee M25.562 [facility] [place] [id number] [place] [address] 02318 -3204 Sep, Right anterior knee pain M25.561 [place] [id number] [place] [address] 76951- 6165 Sep, Abnormal mammogram of left breast R92.8 [place] [id number] [place] [address] 99411- 1899 Sep, Abnormal mammogram of left breast R92.8 [place] [id number] [place] [address] 96128- 0505 13 Aug, 2017 [place] [id number] [place] [address] 38082- 0254 11 Aug, 2017 Abnormal mammogram of left breast R92.8 [place] [id number] [place] [address] 72816- 1733 08 Aug, 2017 [place] [id number] [place] [address] 90807- 9042 01 Aug, 2017 Encounter for well woman exam with routine gynecological exam Z01.419 ; Screen for STD (sexually transmitted disease) Z11.3 ; Screening breast examination Z12.31 ; Other obesity due to excess calories E66.09 and Body mass index (BMI) of 33.0-33.9 in adult Z68.33 [place] [id number] [place] [address] 42180- 4513 14 Jul, 2017 Type 2 diabetes mellitus with hyperglycemia E11.65 and Iron deficiency anemia due to chronic blood loss D50.0 [place] [id number] [place] [address] 03583- 7755 16 Jun, 2017 Acute left-sided back pain with sciatica M54.42 ; Type 2 diabetes mellitus without complications E11.9 and detention current use of insulin Z79.4 [facility] [id number] [place] [address] 07726 -0383 Jun, Dysuria R30.0 and Lumbar back pain M54.5 [facility] [id number] [place] [address] 60053 -8086 Feb, Acute seasonal allergic rhinitis, unspecified trigger J30.2 [place] [id number] [place] [address] 60600- 0782 Feb, Acute posthemorrhagic anemia D62 [place] [id number] [place] [address] 47326- 5816 05 Feb, 2017 Acute posthemorrhagic anemia D62 [place] [id number] [place] [address] 67498- 2119 04 Feb, 2017 Type 2 diabetes mellitus without complication E11.9 and Dry skin L85.3 [place] [address] 43796- 2759 Dec, [facility] [address] 73235 -3177 18 Nov, 2016 Weakness R53.1 and GERD (gastroesophageal reflux disease) K21.9 [place] [address] 39057- 3435 Nov, [place] [address] 90974- 3660 Sep, Type 2 diabetes mellitus without complications E11.9 [facility] [place] [address] 8[address]306 July, Dysuria R30.0 and Acute cystitis with hematuria N30.01 [facility] [place] [address] 04365 -5649 Jun, Seasonal allergic rhinitis, unspecified allergic rhinitis trigger J30.2 [place] [address] 60017- 3134 Jun, Hiatal hernia K44.9 and Ulcer of esophagus without bleeding K22.10 [place] [address] 69379- 8310 Jun, Gastroesophageal reflux disease with esophagitis K21.0 [facility] [address] [id number] Jun, [place] [address] 58920[address] 5163 May, Type 2 diabetes mellitus with hyperglycemia E11.65 and detention current use of insulin Z79.4 [place] [address] 66594- 7452 May, Other chronic pain G89.29 and Pain in left hip M25.552 [place] [id number] [place] [address] 10525- 3840 13 Apr, 2016 Nausea R11.0 [facility] [address] [address] 4810 09 Apr, 2016 SOB (shortness of breath) R06.02 ; Coughing R05 and Type 2 diabetes mellitus without complication E11.9 [facility] [address] 26909 [address]6 Apr, Bronchitis J40 [place] [address] 12598- 0297 Mar, Hiatal hernia K44.9 and Bronchitis J40 [place] [address] 12575- 7581 Mar, [place] [address] 08780- 6824 Mar, [facility] [address] 03586- 0950 Jan, [place] [address] 36918- 0443 Dec, [facility] [id number] [place] [address] 14391- 5039 Dec, Esophageal spasm K22.4 [facility] [id number] [place] [address] 07461- 3551 Dec, [facility] [id number] [place] [address] 65879 -1760 Dec, Right upper quadrant pain R10.11 and Abdominal pain, unspecified location R10.9 [facility] [id number] [place] [address] 57616 -0466 Dec, Right upper quadrant pain R10.11 [facility] [id number] [place] [address] 43744- 3847 Nov, Type 2 diabetes mellitus without complication E11.9 and Right upper quadrant pain R10.11 [facility] [id number] [place] [address] 29733 [address]54[address] Nov, Dysuria R30.0 and Abdominal pain, unspecified location R10.9 [place] [address] 74204- 7877 24 Aug, 2015 Chronic gastritis without bleeding, unspecified gastritis type K29.50 ; Dysuria R30.0 and Type 2 diabetes mellitus without complication E11.9 [place] [address] 22457- 3065 10 Aug, 2015 Gastroesophageal reflux disease, esophagitis presence not specified K21.9 and Acute cystitis with hematuria N30.01 [facility] [place] [address] 77398 -4415 Aug, Dysuria R30.0 [place] [address] 92234- 3621 July, [place] [address] 01696- 2076 Jun, [place] [address] 14173- 4909 May, Diabetes type 2, controlled E11.9 and Allergic rhinitis J30.9 [place] [address] 38472- 3251 Apr, Type 2 diabetes mellitus without complication E11.9 and Cough R05 [place] [id number] [place] [address] 59116- 0543 02 Apr, 2015 Vertigo R42 and Non-intractable vomiting with nausea, vomiting of unspecified type R11.2 [facility] [place] [address] 48450 -9159 Mar, Acute laryngopharyngitis J06.0 ; Acute diarrhea R19.7 and Acute bacterial sinusitis J01.90 [place] [address] [place] [address] [address] Mar, Upper respiratory infection 465.9 [facility] [id number] [place] [address] 490131- 5397 Dec, Diabetes E11.9 [facility] [id number] [place] [address] 53223- 3610 10 Nov, 2014 Upper respiratory infection 465.9 [facility] [id number] [place] [address] 96859- 0297 Sep, [facility] [id number] [place] [address] 232611- 0134 Sep, Diabetes 250.00 [facility] [id number] [place] [address] 226055- 4100 July, Diabetes mellitus without mention of complication, type II or unspecified type, uncontrolled 250.02 and Cervicalgia 723.1 [facility] [id number] [place] [address] 85445- 8842 July, [facility] [id number] [place] [address] 62848- 1889 Jun, [facility] [id number] [place] [address] 46804- 7293 Jun, [facility] [address] [address] 2214 May, [facility] [address] [address] May, [facility] [address] [address] 0414 Apr, [facility] [address] [address] Apr, [facility] [address] [address] 97[address] Apr, [facility] [id number] [place] [address] [place] [address] Apr, [facility] [address] [id number] [place] [address] 3210 Mar, [facility] [place] [facility] [address] [id number] [place] [address] 2254 Mar, [facility] [place] [facility] [address] [id number] [place] [address]- 9661 Feb, [facility] [place] [facility] [address] [id number] [place] [address]- 7852 Feb, [facility] [place] [facility] [address] [id number] [place] [address]- 0887 Jan, [facility] [place] [facility] [address] [id number] [place] [address]- 4742 Jan, [facility] [place] [facility] [address] [id number] [place] [address]- 1531 Aug, [facility] [place] [facility] [address] [id number] [place] [address]- 9756 Aug, [facility] [place] [facility] [address] [id number] [place] [address]- 4876 July, [facility] [place] [facility] [address] [id number] [place] [address]- 1830 July, [facility] [place] [facility] [address] [id number] [place] [address]- 1495 Nov, [facility] [place] [facility] [address] [id number] [place] [address]- 9832 Nov, [facility] [place] [facility] [address] [id number] [place] [address]- 6837 Nov, [facility] [place] [facility] [address] [id number] [place] [address]- 5249 Sep, [facility] [place] [facility] [address] [id number] [place] [address] Aug, [facility] [place] [facility] [address] [id number] [place] [address]- 4918 July, [facility] [place] [facility] [address] [id number] [place] [address]- 4902 Jun, [facility] [place] [facility] [address] [id number] [place] [address]- 9758 Jun, [facility] [place] [facility] [address] [id number] [place] [address]- 7825 Jun, [facility] [place] [facility] [address] [id number] [place] [address]- 8979 Jun, [facility] [place] [facility] [address] [id number] [place] [address]- 9920 May, [facility] [place] [facility] [address] [id number] [place] [address]- 8584 May, [facility] [place] [facility] [address] [id number] [place] [address]- 2564 Jan, [facility] [place] [facility] [address] [id number] [place] [address]- 4856 Jan, [facility] [place] [facility] [address] [id number] [place] [address]- 4233 Dec, [facility] [place] [facility] [address] [id number] [place] [address]- 7488 Dec, [facility] [place] [facility] [address] [id number] [place] [address]- 1461 Dec, [facility] [place] [facility] [address] [id number] [place] [address]- 2679 Dec, [facility] [place] [facility] [address] [id number] [place] [address]- 1107 Dec, [facility] [place] [facility] [address] [id number] [place] [address]- 6907 Dec, [facility] [place] [facility] [address] [id number] [place] [address]- 6456 Dec, [facility] [address] [id number] [place] [address]- 9182 Aug, [facility] [address] [id number] [place] [id number] Apr, [facility] [address] [id number] [place] [address]- 7057 Apr, [facility] [address] [id number] [place] [address]- 7789 Apr, [facility] [address] [id number] [place] [address]- 8861 Apr, [facility] [address] [id number] [place] [address]- 9146 Apr, [facility] [address] [id number] [place] [address]- 2047 Dec, [facility] [place] [facility] [address] [id number] [address]- 5252 14 Dec, 2010 [facility] [address] [id number], [place] [address] 8832 Dec, [facility] [address] [facility] [id number] [place] [address]- 8527 Dec, [facility] [address] [id number] [address]- 0712 19 Feb, 2010 [facility] [place] [facility] [address] [id number], [place] [address]- 6081 16 Feb, 2010 [facility] [place] [facility] [address] [id number] [place] [address]- 4496 13 Feb, 2010 [facility] [place] [facility] [address] [facility] [id number] [place] [address]- 8750 13 Feb, 2010 [facility] [place] [facility] [address] [id number], [place] [address]- 1195 14 Aug, 2009 [facility] [place] [facility] [address] [facility] [id number] [place] [address] May, IMMUNIZATIONS No Known Immunizations SOCIAL HISTORY Never Assessed REASON FOR VISIT EMR-[facility] PLAN OF CARE VITAL SIGNS MEDICATIONS Unknown [...] Upper abdominal pain, Ileus-[facility] 06/08/16 Hospitalization History [facility] ER, Gallbladder attack 05/26/2018
[2018-07-19] MEDS ORDERED: KETOROLAC 60 MG/2 ML VIAL IM STA (02:11)
[2018-07-19] MEDS ORDERED: RX-HYDROCODONE/APAP 5/325 MG #4 TAB PK PO PRN (02:15)
[2018-07-19] MEDS ORDERED: RX-OXYCODONE/APAP 5-325 MG #4 TAB PK PO ONE (02:17)
--- NOTE | 2018-07-19 02:20 | ED Upper Extremity ---
General Chief Complaint: Upper Extremity Stated Complaint: LEFT SHOULDER PAIN Nursing Triage Note: Pt complaining of left shoulder pain, usually chronic but in a lot worse pain today. Pt seen at [facility] today and was told to take ibuprofen and apply heat to shoulder. Nursing Sepsis Screen: No Definite Risk Source: patient Exam Limitations: no limitations History of Present Illness Date Seen by Provider: July 19, 2018 Time Seen by Provider: 02:02 Initial Comments Here with report of left shoulder pain has been going on for 1-1/2 days. Seen at the clinic yesterday afternoon. Instructed to take ibuprofen and use heat. She tried ibuprofen with last dose at 400 mg at 10 PM and that has not helped out the pain. Here for further pain control. Denies specific injury but does have occasional problems with the shoulder. Complains of tension to the left side of the neck that radiates up to the base of the skull. Onset: yesterday Severity: moderate Pain/Injury Location: left shoulder Method of Injury: unknown Modifying Factors: Improves With Immobilization; Worse With Movement Allergies and Home Medications Allergies Coded Allergies: Penicillins (Verified Allergy, Mild, RASH, 06/12/18) metoclopramide (Verified Allergy, Mild, RED RASH/GI UPSET, 06/12/18) Home Medications Albuterol Sulfate 1 Puff Puff, 2 PUFF IH Q6H PRN for SHORTNESS OF BREATH, ( Reported) Cetirizine HCl 10 Mg Capsule, 10 MG PO DAILY, (Reported) Guaifenesin 1,200 Mg Tab.er.12h, 1,200 MG PO DAILY, (Reported) Hydrocodone Bit/Acetaminophen 1 Tab Tab, 1 TAB PO Q6H PRN for PAIN-MODERATE Prescribed by: VALERIA CONTRERAS on 06/17/18 1312 Insulin Glargine,Hum.rec.anlog 100 Unit/1 Ml Insuln.pen, 50 UNITS SC HS, ( Reported) Metformin HCl 1,000 Mg Tablet, 1,000 MG PO BID, (Reported) Ondansetron HCl 4 Mg Tab, 4 MG PO Q4H Prescribed by: AIDEE SOUZA on 05/26/18 2203 Patient Home Medication List Home Medication List Reviewed: Yes Review of Systems Constitutional: see HPI; No chills, No fever Respiratory: no symptoms reported Cardiovascular: no symptoms reported Gastrointestinal: no symptoms reported Musculoskeletal: see HPI, muscle pain, muscle stiffness; No muscle weakness; neck pain Psychiatric/Neurological: No Symptoms Reported Past [place]-Rfaqcg-Trqbnz Hx Past Med/Social Hx: Reviewed Nursing Past Med/Soc Hx Patient Social History Alcohol Use: Denies Use Recreational Drug Use: No Smoking Status: Never a Smoker 2nd Hand Smoke Exposure: No Recent Foreign Travel: No Contact w/Someone Who Travel: No Recent Infectious Disease Expo: No Recent Hopitalizations: No Immunizations Up To Date Tetanus Booster (TDap): Unknown PED Vaccines UTD: No Date of Pneumonia Vaccine: Dec 12, 2009 Date of Influenza Vaccine: Dec 16, 2017 Seasonal Allergies Seasonal Allergies: Yes Past Medical History Surgeries: Yes (LT/RT KNEE SCOPE 2012; ENDOSCOPY; EYE SURGERY; ANDREW FUNDOPLICATION 2016) Abdominal, Eye Surgery, Orthopedic Respiratory: Yes Asthma Currently Using CPAP: No Currently Using BIPAP: No Cardiac: No High Cholesterol Neurological: No Reproductive Disorders: No Female Reproductive Disorders: Denies Sexually Transmitted Disease: No HIV/AIDS: No Genitourinary: Yes UTI-Chronic Gastrointestinal: Yes (ESOPHAGEAL NARROWING) Ulcer, Gall Bladder Disease Musculoskeletal: Yes Arthritis Endocrine: Yes Diabetes, Insulin dep HEENT: Yes (GLASSES) Loss of Vision: Bilateral Hearing Impairment: Denies Cancer: No Psychosocial: No Integumentary: No Blood Disorders: No Adverse Reaction/Blood Tranf: No (N/A) Family Medical History Reviewed Nursing Family Hx Arthritis 19 FATHER 19 MOTHER G8 SISTER Asthma 19 FATHER 19 MOTHER G8 SISTER Cataracts 19 MOTHER Diabetes mellitus 19 FATHER 19 MOTHER G8 SISTER FH: leukemia 19 FATHER Myocardial infarction 19 MOTHER Parkinson's disease 19 FATHER Thyroid disease 19 MOTHER Asthma, CAD Over 55 Years Old, Diabetes Physical Exam Vital Signs Vital Signs - First Documented 07/19/18 00:34 Temp 97.7 Pulse 66 Resp 18 B/P (MAP) 163/97 (119) O2 Delivery Room Air Capillary Refill : Less Than 3 Seconds Height, Weight, BMI Height: 5'3.00" Weight: 179lbs. 0.0oz. 81.594773nt; 31.5 BMI Method:Stated General Appearance: WD/WN, no apparent distress Neck: full range of motion, supple Cardiovascular: regular rate, rhythm, no murmur Respiratory: lungs clear, normal breath sounds Gastrointestinal: non tender, soft Back: normal inspection, no CVA tenderness, no vertebral tenderness Shoulder: limited ROM (pain limited), soft tissue tenderness (left shoulder and up the left side of the neck.) Hand: normal inspection, Right, Left Neurologic/Psychiatric: alert, oriented x 3 Skin: normal color, warm/dry Progress/Results/Core Measures Results/Orders My Orders Orders - WILEY AMBRIZ MD Ketorolac Injection (Toradol Injection) (07/19/18 02:11) Rx-Hydrocodone/Apap 5-325 Mg (Rx-Vicodin (07/19/18 02:15) Vital Signs/I&O 07/19/18 00:34 Temp 97.7 Pulse 66 Resp 18 B/P (MAP) 163/97 (119) O2 Delivery Room Air Blood Pressure Mean: 119 Progress Progress Note : Progress Note Seen and evaluated. Sling applied. Toradol 60 mg IM. Go-pack of oxycodone 5/ 325. Discharged home with return precautions. Patient verbalize understanding instructions and agreement with plan. Departure Impression Primary Impression: Left shoulder strain Qualified Codes: S46.912A - Strain of unspecified muscle, fascia and tendon at shoulder and upper arm level, left arm, initial encounter Additional Impression: Neck muscle strain Qualified Codes: S16.1XXA - Strain of muscle, fascia and tendon at neck level , initial encounter Disposition: 01 HOME, SELF-CARE Condition: Improved Departure-Patient Inst. Decision time for Depature: 02:19 Referrals: RIAZ REAL DO (PCP) Primary Care Physician CHERRY MARTIN (Family) Primary Care Physician Patient Instructions: Neck Sprain (DC), Shoulder Sprain (DC) Add. Discharge Instructions: All discharge instructions reviewed with patient and/or family. Voiced understanding. You may take ibuprofen 600 mg every 8 hours as needed for pain. You may also take Tylenol/acetaminophen 1000 mg every 8 hours as needed for pain. Use sling as needed for the next few days. You may use ice packs or heat over area of concern as needed. Return for worse pain, fever, vomiting, weakness, breathing problems or other concerns as needed. Follow-up with your in a few days for recheck and further evaluation. WILEY AMBRIZ MD July 19, 2018 02:20
[2018-07-19 02:34] VITALS: BP 157/96
== END 2018-07-19 02:34 | disposition home or self-care (01) ==
LOC: EDUNIT# 00:22 → ER 00:24
DX: S46.912A Strain of unspecified muscle, fascia and tendon at shoulder and upper arm level, left arm, initial encounter (principal); S16.1XXA Strain of muscle, fascia and tendon at neck level, initial encounter; J45.909 Unspecified asthma, uncomplicated; E78.00 Pure hypercholesterolemia, unspecified; E11.9 Type 2 diabetes mellitus without complications; Z82.49 Family history of ischemic heart disease and other diseases of the circulatory system; Z87.19 Personal history of other diseases of the digestive system; Z87.440 Personal history of urinary (tract) infections; Z88.0 Allergy status to penicillin; Z88.8 Allergy status to other drugs, medicaments and biological substances; Z79.4 Long term (current) use of insulin; Z98.890 Other specified postprocedural states; X58.XXXA Exposure to other specified factors, initial encounter
CPT/HCPCS: 96372; 99284

== ENCOUNTER 2018-10-04 20:14 | Emergency (ER) | payer OTHER ==
[~2018-10-04] VITALS: Ht 160 cm; Wt 80.7 kg
[2018-10-04] MEDS ORDERED: PANTOPRAZOLE 40 MG (PROTONIX) VIAL IV ONE (20:45)
[2018-10-04] MEDS ORDERED: ANTACID SUSP 30 ML UDC (MYLANTA) PO ONE (20:45)
[2018-10-04] MEDS ORDERED: LIDOCAINE 2% VISCOUS 15 ML UDC PO ONE (20:45)
[2018-10-04] MEDS ORDERED: ONDANSETRON 4 MG/2 ML (SDV) Z0FRAN IVP ONE (20:45)
[2018-10-04] MEDS ORDERED: ASPIRIN 81 MG CHEW (CHILDREN'S ASA) PO ONE (20:45)
[2018-10-04 20:46] LABS: BASOPHILS % (AUTO) 1 % (0-10); EOSINOPHILS # (AUTO) 0.1 10^3/uL (0.0-0.3); EOSINOPHILS % (AUTO) 1 % (0-10); HEMATOCRIT 34 % (35-52); HEMOGLOBIN 11.3 G/DL (11.5-16.0); LYMPHOCYTES % (AUTO) 44 % (12-44); MEAN CORPUSCULAR HEMOGLOBIN 29 PG (25-34); MEAN CORPUSCULAR HGB CONC 33 G/DL (32-36); MEAN CORPUSCULAR VOLUME 86 FL (80-99); MEAN PLATELET VOLUME 9.8 FL (7.4-10.4); MONOCYTES # (AUTO) 0.4 X 10^3 (0.0-1.0); MONOCYTES % (AUTO) 6 % (0-12); NEUTROPHILS # (AUTO) 3.4 X 10^3 (1.8-7.8); NEUTROPHILS % (AUTO) 49 % (42-75); PLATELET COUNT 395 10^3/uL (130-400); RED CELL DISTRIBUTION WIDTH 15.8 % (10.0-14.5)
[2018-10-04 20:50] LABS: INR 0.9 (0.8-1.4); PROTHROMBIN TIME PATIENT 12.8 SEC (12.2-14.7)
[2018-10-04 20:58] LABS: BILIRUBIN,URINE NEGATIVE (NEGATIVE); CLARITY,URINE SLIGHTLY CLOUDY; COLOR,URINE YELLOW; GLUCOSE, URINE (UA) 3+ (NEGATIVE); KETONES,URINE 1+ (NEGATIVE); LEUKOCYTE ESTERASE ,URINE 2+ (NEGATIVE); NITRITE,URINE NEGATIVE (NEGATIVE); PH,URINE 5 (5-9); PROTEIN,URINE 1+ (NEGATIVE); UROBILINOGEN,URINE NORMAL (NORMAL)
[2018-10-04 21:00] LABS: ALANINE AMINOTRANSFERASE 11 U/L (0-55); ALBUMIN 4.1 GM/DL (3.2-4.5); ALKALINE PHOSPHATASE 71 U/L (40-136); AMYLASE 39 U/L (25-125); BILIRUBIN,TOTAL 0.2 MG/DL (0.1-1.0); BUN/CREATININE RATIO 13; CALCIUM 9.3 MG/DL (8.5-10.1); CARBON DIOXIDE 21 MMOL/L (21-32); CHLORIDE 108 MMOL/L (98-107); CREATININE SERUM 0.77 MG/DL (0.60-1.30); GFR ESTIMATED > 60; GLUCOSE 143 MG/DL (70-105); LIPASE 33 U/L (8-78); MAGNESIUM 2.1 MG/DL (1.8-2.4); POTASSIUM 3.4 MMOL/L (3.6-5.0); SODIUM 140 MMOL/L (135-145); TOTAL PROTEIN 7.4 GM/DL (6.4-8.2)
[2018-10-04 21:08] LABS: BACTERIA,URINE MODERATE /HPF; RBC,URINE RARE /HPF; WBC,URINE 25-50 /HPF
[2018-10-04 21:10] LABS: AMPHETAMINE SCREEN, URINE NEGATIVE (NEGATIVE); BARBITURATE SCREEN URINE NEGATIVE (NEGATIVE); BENZODIAZEPINES SCREEN URINE NEGATIVE (NEGATIVE); CANNABINOID SCREEN, URINE NEGATIVE (NEGATIVE); COCAINE SCREEN URINE NEGATIVE (NEGATIVE); METHADONE STAT NEGATIVE (NEGATIVE); METHAMPHETAMINE SCREEN URINE S NEGATIVE (NEGATIVE); OPIATE SCREEN URINE POSITIVE (NEGATIVE); OXYCODONE STAT NEGATIVE (NEGATIVE); PROPOXYPHENE STAT NEGATIVE (NEGATIVE); TRICYCLIC ANTIDEPRESSANTS SCRE NEGATIVE (NEGATIVE)
[2018-10-04] MEDS ORDERED: cefTRIAXone FOR IV USE 1,000 MG in WATER (STERILE) FOR INJECTION 10 ML IV ONE (21:30)
--- NOTE | 2018-10-04 21:40 | Diagnostic Imaging Report ---
INDICATION: Left-sided pain. EXAMINATION: Single view of the chest was obtained. FINDINGS: The lungs are clear. The heart and vessels are normal. There is no effusion or pneumothorax. IMPRESSION: Negative. Dictated by: Dictated on workstation # [id number]
[2018-10-04] MEDS ORDERED: PANT40TA2 PO (23:43)
[2018-10-04] MEDS ORDERED: NITR-65 PO (23:43)
[2018-10-04] MEDS ORDERED: SUCR1ORA5 PO (23:43)
--- NOTE | 2018-10-04 23:44 | ED General ---
General Chief Complaint: Abdominal/GI Problems Stated Complaint: ABD PAIN, SEVERE HEARTBURN Nursing Triage Note: Pt amb to room #7 w/o difficulty. a&ox4. C/o "heart burn" and left upper quadrant abd pain. Pt reports discomfort began on this day @ approx 1300. 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 Pt states, "it taste like metal." Denies cardiac hx. Nursing Sepsis Screen: No Definite Risk Allergies and Home Medications Allergies Coded Allergies: Penicillins (Verified Allergy, Mild, RASH, 06/12/18) metoclopramide (Verified Allergy, Mild, RED RASH/GI UPSET, 06/12/18) Home Medications Albuterol Sulfate 1 Puff Puff, 2 PUFF IH Q6H PRN for SHORTNESS OF BREATH, (Reported) Cetirizine HCl 10 Mg Capsule, 10 MG PO DAILY, (Reported) Guaifenesin 1,200 Mg Tab.er.12h, 1,200 MG PO DAILY, (Reported) Hydrocodone Bit/Acetaminophen 1 Tab Tab, 1 TAB PO Q6H PRN for PAIN-MODERATE Prescribed by: VALERIA CONTRERAS on 06/17/18 1312 Insulin Glargine,Hum.rec.anlog 100 Unit/1 Ml Insuln.pen, 50 UNITS SC HS, (Reported) Metformin HCl 1,000 Mg Tablet, 1,000 MG PO BID, (Reported) Ondansetron HCl 4 Mg Tab, 4 MG PO Q4H Prescribed by: AIDEE SOUZA on 05/26/18 2203 Past Manisbi-Oxkfgz-Ojvmva Hx Patient Social History Alcohol Use: Denies Use Recreational Drug Use: No Smoking Status: Never a Smoker 2nd Hand Smoke Exposure: No Recent Foreign Travel: No Contact w/Someone Who Travel: No Recent Infectious Disease Expo: No Recent Hopitalizations: No Immunizations Up To Date Tetanus Booster (TDap): Unknown PED Vaccines UTD: No Date of Pneumonia Vaccine: Dec 12, 2009 Date of Influenza Vaccine: Dec 16, 2017 Seasonal Allergies Seasonal Allergies: Yes Past Medical History Surgeries: Yes (LT/RT KNEE SCOPE 2012; ENDOSCOPY; EYE SURGERY; ANDREW FUNDOPLICATION 2016) Abdominal, Eye Surgery, Orthopedic Respiratory: Yes Asthma Currently Using CPAP: No Currently Using BIPAP: No Cardiac: No High Cholesterol Neurological: No Reproductive Disorders: No Female Reproductive Disorders: Denies Sexually Transmitted Disease: No HIV/AIDS: No Genitourinary: Yes UTI-Chronic Gastrointestinal: Yes (ESOPHAGEAL NARROWING) Ulcer, Gall Bladder Disease Musculoskeletal: Yes Arthritis Endocrine: Yes Diabetes, Insulin dep HEENT: Yes (GLASSES) Loss of Vision: Bilateral Hearing Impairment: Denies Cancer: No Psychosocial: No Integumentary: No Blood Disorders: No Adverse Reaction/Blood Tranf: No (N/A) Family Medical History Arthritis 19 FATHER 19 MOTHER G8 SISTER Asthma 19 FATHER 19 MOTHER G8 SISTER Cataracts 19 MOTHER Diabetes mellitus 19 FATHER 19 MOTHER G8 SISTER FH: leukemia 19 FATHER Myocardial infarction 19 MOTHER Parkinson's disease 19 FATHER Thyroid disease 19 MOTHER Asthma, CAD Over 55 Years Old, Diabetes Physical Exam Vital Signs Vital Signs - First Documented 10/04/18 20:23 Temp 97.7 Pulse 84 Resp 16 B/P (MAP) 170/105 (126) Pulse Ox 100 O2 Delivery Room Air Capillary Refill : Less Than 3 Seconds Height, Weight, BMI Height: 5'3.00" Weight: 178lbs. 0.0oz. 80.383944bl; 31.5 BMI Method:Stated Progress/Results/Core Measures Suspected Sepsis Recent Fever Within 48 Hours: No Infection Criteria Present: None New/Unexplained Altered Menta: No Sepsis Screen: No Definite Risk SIRS Temperature:97.7 Pulse: 84 Respiratory Rate: 16 Laboratory Tests 10/04/18 20:30: White Blood Count 7.0 Blood Pressure 170 /105 Mean: 126 Laboratory Tests 10/04/18 20:30: Creatinine 0.77, INR Comment 0.9, Platelet Count 395, Total Bilirubin 0.2 Results/Orders Lab Results Laboratory Tests Test 10/04/18 20:30 10/04/18 20:52 Range/Units White Blood Count 7.0 4.3-11.0 10^3/uL Red Blood Count 3.95 L 4.35-5.85 10^6/uL Hemoglobin 11.3 L 11.5-16.0 G/DL Hematocrit 34 L 35-52 % Mean Corpuscular Volume 86 80-99 FL Mean Corpuscular Hemoglobin 29 25-34 PG Mean Corpuscular Hemoglobin Concent 33 32-36 G/DL Red Cell Distribution Width 15.8 H 10.0-14.5 % Platelet Count 395 130-400 10^3/uL Mean Platelet Volume 9.8 7.4-10.4 FL Neutrophils (%) (Auto) 49 42-75 % Lymphocytes (%) (Auto) 44 12-44 % Monocytes (%) (Auto) 6 0-12 % Eosinophils (%) (Auto) 1 0-10 % Basophils (%) (Auto) 1 0-10 % Neutrophils # (Auto) 3.4 1.8-7.8 X 10^3 Lymphocytes # (Auto) 3.0 1.0-4.0 X 10^3 Monocytes # (Auto) 0.4 0.0-1.0 X 10^3 Eosinophils # (Auto) 0.1 0.0-0.3 10^3/uL Basophils # (Auto) 0.0 0.0-0.1 10^3/uL Prothrombin Time 12.8 12.2-14.7 SEC INR Comment 0.9 0.8-1.4 Activated Partial Thromboplast Time 28 24-35 SEC Sodium Level 140 135-145 MMOL/L Potassium Level 3.4 L 3.6-5.0 MMOL/L Chloride Level 108 H 98-107 MMOL/L Carbon Dioxide Level 21 21-32 MMOL/L Anion Gap 11 5-14 MMOL/L Blood Urea Nitrogen 10 7-18 MG/DL Creatinine 0.77 0.60-1.30 MG/DL Estimat Glomerular Filtration Rate > 60 BUN/Creatinine Ratio 13 Glucose Level 143 H 70-105 MG/DL Calcium Level 9.3 8.5-10.1 MG/DL Corrected Calcium 9.2 8.5-10.1 MG/DL Magnesium Level 2.1 1.8-2.4 MG/DL Total Bilirubin 0.2 0.1-1.0 MG/DL Aspartate Amino Transf (AST/SGOT) 17 5-34 U/L Alanine Aminotransferase (ALT/SGPT) 11 0-55 U/L Alkaline Phosphatase 71 40-136 U/L Myoglobin 33.9 10.0-92.0 NG/ML Troponin I < 0.028 <0.028 NG/ML B-Type Natriuretic Peptide 79.0 <100.0 PG/ML Total Protein 7.4 6.4-8.2 GM/DL Albumin 4.1 3.2-4.5 GM/DL Amylase Level 39 25-125 U/L Lipase 33 8-78 U/L Serum Test, Qualitative NEGATIVE NEGATIVE Serum Alcohol < 10 <10 MG/DL Urine Color YELLOW Urine Clarity SLIGHTLY CLOUDY Urine pH 5 5-9 Urine Specific [place] 1.025 H 1.016-1.022 Urine Protein 1+ H NEGATIVE Urine Glucose (UA) 3+ H NEGATIVE Urine Ketones 1+ H NEGATIVE Urine Nitrite NEGATIVE NEGATIVE Urine Bilirubin NEGATIVE NEGATIVE Urine Urobilinogen NORMAL NORMAL MG/DL Urine Leukocyte Esterase 2+ H NEGATIVE Urine RBC (Auto) 4+ H NEGATIVE Urine RBC RARE /HPF Urine WBC 25-50 H /HPF Urine Squamous Epithelial Cells 10-25 H /HPF Urine Crystals NONE /LPF Urine Bacteria MODERATE H /HPF Urine Casts NONE /LPF Urine Mucus SMALL H /LPF Urine Culture Indicated YES Urine Opiates Screen POSITIVE H NEGATIVE Urine Oxycodone Screen NEGATIVE NEGATIVE Urine Methadone Screen NEGATIVE NEGATIVE Urine Propoxyphene Screen NEGATIVE NEGATIVE Urine Barbiturates Screen NEGATIVE NEGATIVE Ur Tricyclic Antidepressants Screen NEGATIVE NEGATIVE Urine Phencyclidine Screen NEGATIVE NEGATIVE Urine Amphetamines Screen NEGATIVE NEGATIVE Urine Methamphetamines Screen NEGATIVE NEGATIVE Urine Benzodiazepines Screen NEGATIVE NEGATIVE Urine Cocaine Screen NEGATIVE NEGATIVE Urine Cannabinoids Screen NEGATIVE NEGATIVE My Orders Orders - NOEL CHIN DO Cbc With Automated Diff (10/04/18 20:38) Magnesium (10/04/18 20:38) Chest 1 View, Ap/Pa Only (10/04/18 20:38) Ekg Tracing (10/04/18 20:38) Cardiac Profile 1 (10/04/18 20:38) Comprehensive Metabolic Panel (10/04/18 20:38) Myoglobin Serum (10/04/18 20:38) Protime With Inr (10/04/18 20:38) Partial Thromboplastin Time (10/04/18 20:38) O2 (10/04/18 20:38) Monitor-Rhythm Ecg Trace Only (10/04/18 20:38) Lipid Panel (10/05/18 06:00) Ed Iv/Invasive Line Start (10/04/18 20:38) Lipase (10/04/18 20:38) Amylase (10/04/18 20:38) BNP (10/04/18 20:38) Aspirin Chewable Tablet (Baby Aspirin Ch (10/04/18 20:45) Alcohol (10/04/18 20:43) Drug Screen Stat (Urine) (10/04/18 20:43) Hcg,Qualitative Serum (10/04/18 20:43) Ua Culture If Indicated (10/04/18 20:43) Ondansetron Injection (Zofran Injectio (10/04/18 20:45) Pantoprazole Injection (Protonix Injecti (10/04/18 20:45) Lidocaine 2% Viscous 15 Ml (Xylocaine Vi (10/04/18 20:45) Antacid Suspension (Mylanta Suspension (10/04/18 20:45) Urine Culture (10/04/18 20:52) Ct Angio Chst/Abd/Pelv W (10/04/18 21:27) Ceftriaxone For Iv Use (Rocephin For I (10/04/18 21:30) Medications Given in ED Current Medications Medications Dose Ordered Sig/Hunter Route Start Time Stop Time Status Last Admin Dose Admin Al Hydrox/Mg Hydrox/Simethicone 30 ml ONCE ONCE PO 10/04/18 20:45 10/04/18 20:46 DC 10/04/18 20:53 30 ML Aspirin 324 mg ONCE ONCE PO 10/04/18 20:45 10/04/18 20:46 DC 10/04/18 20:54 324 MG Ceftriaxone Sodium 1000 mg/ Sterile Water 10 ml @ 200 mls/hr ONCE ONCE IV 10/04/18 21:30 10/04/18 21:32 DC 10/04/18 21:37 200 MLS/HR Lidocaine HCl 15 ml ONCE ONCE PO 10/04/18 20:45 10/04/18 20:46 DC 10/04/18 20:53 15 ML Ondansetron HCl 4 mg ONCE ONCE IVP 10/04/18 20:45 10/04/18 20:46 DC 10/04/18 20:53 4 MG Pantoprazole 40 mg ONCE ONCE IV 10/04/18 20:45 10/04/18 20:46 DC 10/04/18 20:53 40 MG Vital Signs/I&O 10/04/18 20:23 Temp 97.7 Pulse 84 Resp 16 B/P (MAP) 170/105 (126) Pulse Ox 100 O2 Delivery Room Air Capillary Refill : Less Than 3 Seconds Blood Pressure Mean: 126 Departure Impression Primary Impression: GERD SYMPTOMS Additional Impression: Urinary tract infection Disposition: 01 HOME, SELF-CARE Condition: Improved Departure-Patient Inst. Referrals: RIAZ REAL DO (PCP) Primary Care Physician CHERRY MARTIN (Family) Primary Care Physician Patient Instructions: Acid Reflux (Gastroesophageal Reflux Disease), Adult (DC), Urinary Tract Infection, Adult (DC) Add. Discharge Instructions: CONTINUE YOUR MEDICATIONS PRESCRIBED FOLLOW UP WITH YOUR DR THIS WEEK FOR FURTHER CARE All discharge instructions reviewed with patient and/or family. Voiced understanding. Scripts Nitrofurantoin Monohyd/M-Cryst (Macrobid 100 mg Capsule) 100 Mg Capsule 100 MG PO BID, #20 CAP Prov: NOEL CHIN DO 10/04/18 Sucralfate (Carafate) 1 Gm/10 Ml Oral.susp 1 GM PO QID, #400 ML Prov: NOEL CHIN DO 10/04/18 Pantoprazole Sodium (Protonix) 40 Mg Tablet. 40 MG PO DAILY, #15 TAB Prov: NOEL CHIN DO 10/04/18 NOEL CHIN DO Oct 04, 2018 23:44
[2018-10-05] VITALS: BP 144/95
--- NOTE | 2018-10-05 09:26 | Diagnostic Imaging Report ---
PROCEDURE: CT angiography of the chest with contrast and CT abdomen and pelvis with contrast. TECHNIQUE: Multiple contiguous axial images were obtained through the chest, abdomen and pelvis after administration of intravenous contrast. 3D MIP reconstructed CT angiography acquisitions of the aorta were then performed. Auto Exposure Controls were utilized during the CT exam to meet ALARA standards for radiation dose reduction. INDICATION: Abdominal pain. COMPARISON: CT abdomen and pelvis with IV contrast 05/26/2017. FINDINGS: CTA chest: No pulmonary emboli. No thoracic aortic aneurysm or dissection. Normal heart size. No pericardial effusion. Normal heart size. No pericardial effusion. No mediastinal, hilar or axillary lymphadenopathy. Lungs are clear. No pleural effusion or pneumothorax. No endobronchial lesions. Indeterminate 2.5 cm nodule in the left thyroid. Abdomen and pelvis: Cholecystectomy. The liver, pancreas, spleen, adrenals, kidneys, collecting systems and bladder are negative. No evidence of appendicitis. Probable uterine fibroid. No free intraperitoneal air or fluid. No lymphadenopathy. No evidence of bowel obstruction. No acute osseous findings. IMPRESSION: 1. No acute CT findings in the chest, abdomen or pelvis. 2. No pulmonary emboli. No thoracic aortic aneurysm or dissection. 3. Indeterminate 2.5 cm nodule in the left thyroid. Recommend further evaluation with dedicated ultrasound. Dictated by: Dictated on workstation # [id number]
== END 2018-10-05 | disposition home or self-care (01) ==
LOC: EDUNIT# 20:14 → ER 20:16
DX: R10.12 Left upper quadrant pain (principal); R12 Heartburn; N39.0 Urinary tract infection, site not specified; E11.9 Type 2 diabetes mellitus without complications; J45.909 Unspecified asthma, uncomplicated; E78.00 Pure hypercholesterolemia, unspecified; Z88.0 Allergy status to penicillin; Z88.8 Allergy status to other drugs, medicaments and biological substances; Z79.4 Long term (current) use of insulin; Z98.890 Other specified postprocedural states; Z82.49 Family history of ischemic heart disease and other diseases of the circulatory system
CPT/HCPCS: 36415; 71045; 71275; 74174; 80053; 80306; 80320; 81000; 82150; 83690; 83735; 83874; 83880; 84484; 84703; 85025; 85610; 85730; 87088; 93005; 93041

== ENCOUNTER 2018-11-22 20:22 | Emergency (ER) | payer OTHER ==
[~2018-11-22] VITALS: Ht 160 cm; Wt 81.8 kg
[~2018-11-22 20:22] MED LIST changes: +SUCR1ORA5 PO
[2018-11-22] MEDS ORDERED: fentaNYL INJECTION 100 MCG/2 ML AMP IVP ONE (21:00)
[2018-11-22] MEDS ORDERED: ANTACID SUSP 30 ML UDC (MYLANTA) PO ONE (21:00)
[2018-11-22] MEDS ORDERED: LIDOCAINE 2% VISCOUS 15 ML UDC PO ONE (21:00)
--- NOTE | 2018-11-22 21:06 | ED General ---
General Stated Complaint: ABDOMINAL PAIN Source of Information: Patient Exam Limitations: No Limitations History of Present Illness Date Seen by Provider: Nov 22, 2018 Time Seen by Provider: 21:05 Initial Comments To ER with reports of diffuse abdominal pain present for one week associated loose stools and no nausea but she does have heartburn. Timing/Duration: 1 Week Severity: Moderate Allergies and Home Medications Allergies Coded Allergies: Penicillins (Verified Allergy, Mild, RASH, 06/12/18) metoclopramide (Verified Allergy, Mild, RED RASH/GI UPSET, 06/12/18) Home Medications Albuterol Sulfate 1 Puff Puff, 2 PUFF IH Q6H PRN for SHORTNESS OF BREATH, (Reported) Cetirizine HCl 10 Mg Capsule, 10 MG PO DAILY, (Reported) Guaifenesin 1,200 Mg Tab.er.12h, 1,200 MG PO DAILY, (Reported) Hydrocodone Bit/Acetaminophen 1 Tab Tab, 1 TAB PO Q6H PRN for PAIN-MODERATE Prescribed by: VALERIA CONTRERAS on 06/17/18 1312 Insulin Glargine,Hum.rec.anlog 100 Unit/1 Ml Insuln.pen, 50 UNITS SC HS, (Reported) Metformin HCl 1,000 Mg Tablet, 1,000 MG PO BID, (Reported) Nitrofurantoin Monohyd/M-Cryst 100 Mg Capsule, 100 MG PO BID Prescribed by: NOEL CHIN on 10/04/182342 Ondansetron HCl 4 Mg Tab, 4 MG PO Q4H Prescribed by: AIDEE SOUZA on 05/26/182202 Pantoprazole Sodium 40 Mg Tablet.dr, 40 MG PO DAILY Prescribed by: NOEL CHIN on 10/04/182342 Sucralfate 1 Gm/10 Ml Oral.susp, 1 GM PO QID Prescribed by: NOEL CHIN on 10/04/182342 Patient Home Medication List Home Medication List Reviewed: Yes Review of Systems Review of Systems Constitutional: see HPI EENTM: see HPI Respiratory: no symptoms reported Cardiovascular: no symptoms reported Gastrointestinal: abdominal pain, diarrhea, heartburn; No nausea, No vomiting Genitourinary: no symptoms reported Musculoskeletal: no symptoms reported Skin: no symptoms reported Psychiatric/Neurological: No Symptoms Reported Past [place]x-Pihjgo-Bjdmof Hx Patient Social History 2nd Hand Smoke Exposure: No Recent Foreign Travel: No Contact w/Someone Who Travel: No Recent Hopitalizations: No Immunizations Up To Date Tetanus Booster (TDap): Unknown PED Vaccines UTD: No Date of Pneumonia Vaccine: Dec 12, 2009 Date of Influenza Vaccine: Dec 16, 2017 Seasonal Allergies Seasonal Allergies: Yes Past Medical History Surgeries: Yes (LT/RT KNEE SCOPE 2012; ENDOSCOPY; EYE SURGERY; ANDREW F UNDOPLICATION 2016) Abdominal, Eye Surgery, Orthopedic Respiratory: Yes Asthma Currently Using CPAP: No Currently Using BIPAP: No Cardiac: No High Cholesterol Neurological: No Reproductive Disorders: No Female Reproductive Disorders: Denies Sexually Transmitted Disease: No HIV/AIDS: No Genitourinary: Yes UTI-Chronic Gastrointestinal: Yes (ESOPHAGEAL NARROWING) Ulcer, Gall Bladder Disease Musculoskeletal: Yes Arthritis Endocrine: Yes Diabetes, Insulin dep HEENT: Yes (GLASSES) Loss of Vision: Bilateral Hearing Impairment: Denies Cancer: No Psychosocial: No Integumentary: No Blood Disorders: No Adverse Reaction/Blood Tranf: No (N/A) Family Medical History Arthritis 19 FATHER 19 MOTHER G8 SISTER Asthma 19 FATHER 19 MOTHER G8 SISTER Cataracts 19 MOTHER Diabetes mellitus 19 FATHER 19 MOTHER G8 SISTER FH: leukemia 19 FATHER Myocardial infarction 19 MOTHER Parkinson's disease 19 FATHER Thyroid disease 19 MOTHER Asthma, CAD Over 55 Years Old, Diabetes Physical Exam Vital Signs Vital Signs - First Documented 11/22/18 20:55 Temp 37.0 Pulse 85 Resp 18 B/P (MAP) 156/92 (113) Pulse Ox 99 O2 Delivery Room Air Capillary Refill : Height, Weight, BMI Height: 5'3.00" Weight: 178lbs. 0.0oz. [id number]; 31.5 BMI Method:Stated General Appearance: No Apparent Distress, WD/WN Eyes: Bilateral Eye Normal Inspection, Bilateral Eye PERRL, Bilateral Eye EOMI Neck: Full Range of Motion, Normal Inspection Respiratory: No Accessory Muscle Use, No Respiratory Distress Cardiovascular: Regular Rate, Rhythm, Normal Peripheral Pulses Gastrointestinal: Normal Bowel Sounds, Non Tender, Soft Extremity: Normal Capillary Refill, Normal Inspection Neurologic/Psychiatric: Alert, Oriented x3 Skin: Normal Color, Warm/Dry Progress/Results/Core Measures Suspected Sepsis SIRS Temperature: Pulse: Respiratory Rate: Laboratory Tests 11/22/18 21:04: White Blood Count 8.6 Blood Pressure / Mean: Laboratory Tests 11/22/18 21:04: Creatinine 0.75, Platelet Count 380, Total Bilirubin 0.2 Results/Orders Lab Results Laboratory Tests Test 11/22/18 21:04 11/22/18 21:09 Range/Units White Blood Count 8.6 4.3-11.0 10^3/uL Red Blood Count 4.33 L 4.35-5.85 10^6/uL Hemoglobin 12.3 11.5-16.0 G/DL Hematocrit 37 35-52 % Mean Corpuscular Volume 86 80-99 FL Mean Corpuscular Hemoglobin 28 25-34 PG Mean Corpuscular Hemoglobin Concent 33 32-36 G/DL Red Cell Distribution Width 14.7 H 10.0-14.5 % Platelet Count 380 130-400 10^3/uL Mean Platelet Volume 9.9 7.4-10.4 FL Neutrophils (%) (Auto) 62 42-75 % Lymphocytes (%) (Auto) 31 12-44 % Monocytes (%) (Auto) 6 0-12 % Eosinophils (%) (Auto) 1 0-10 % Basophils (%) (Auto) 0 0-10 % Neutrophils # (Auto) 5.3 1.8-7.8 X 10^3 Lymphocytes # (Auto) 2.7 1.0-4.0 X 10^3 Monocytes # (Auto) 0.5 0.0-1.0 X 10^3 Eosinophils # (Auto) 0.1 0.0-0.3 10^3/uL Basophils # (Auto) 0.0 0.0-0.1 10^3/uL Sodium Level 138 135-145 MMOL/L Potassium Level 3.2 L 3.6-5.0 MMOL/L Chloride Level 110 H 98-107 MMOL/L Carbon Dioxide Level 19 L 21-32 MMOL/L Anion Gap 9 5-14 MMOL/L Blood Urea Nitrogen 9 7-18 MG/DL Creatinine 0.75 0.60-1.30 MG/DL Estimat Glomerular Filtration Rate > 60 BUN/Creatinine Ratio 12 Glucose Level 118 H 70-105 MG/DL Calcium Level 9.0 8.5-10.1 MG/DL Corrected Calcium 8.8 8.5-10.1 MG/DL Total Bilirubin 0.2 0.1-1.0 MG/DL Aspartate Amino Transf (AST/SGOT) 16 5-34 U/L Alanine Aminotransferase (ALT/SGPT) 11 0-55 U/L Alkaline Phosphatase 78 40-136 U/L Total Protein 7.9 6.4-8.2 GM/DL Albumin 4.2 3.2-4.5 GM/DL Lipase 25 8-78 U/L Urine Color YELLOW Urine Clarity SL CLOUDY Urine pH 5 5-9 Urine Specific [place] 1.025 H 1.016-1.022 Urine Protein 1+ H NEGATIVE Urine Glucose (UA) 3+ H NEGATIVE Urine Ketones NEGATIVE NEGATIVE Urine Nitrite NEGATIVE NEGATIVE Urine Bilirubin NEGATIVE NEGATIVE Urine Urobilinogen NORMAL NORMAL MG/DL Urine Leukocyte Esterase 3+ H NEGATIVE Urine RBC (Auto) NEGATIVE NEGATIVE Urine RBC NONE /HPF Urine WBC 2-5 /HPF Urine Squamous Epithelial Cells 10-25 H /HPF Urine Crystals PRESENT H /LPF Urine Calcium Oxalate Crystals MODERATE H /LPF Urine Bacteria TRACE /HPF Urine Casts NONE /LPF Urine Mucus MODERATE H /LPF Urine Yeast FEW H /HPF Urine Culture Indicated NO Urine Test NEGATIVE NEGATIVE My Orders Orders - LISS BAGLEY [employer] Cbc With Automated Diff (11/22/18 20:59) Comprehensive Metabolic Panel (11/22/18 20:59) Lipase (11/22/18 20:59) Ua Culture If Indicated (11/22/18 20:59) Ed Iv/Invasive Line Start (11/22/18 20:59) Ct Abdomen/Pelvis W (11/22/18 20:59) Antacid Suspension (Mylanta Suspension (11/22/18 21:00) Lidocaine 2% Viscous 15 Ml (Xylocaine Vi (11/22/18 21:00) Fentanyl Injection (Sublimaze Injection (11/22/18 21:00) Potassium Chloride (Tablet) (K Dur Table (11/22/18 21:30) Hcg,Qualitative Urine (11/22/18 21:37) Iohexol Injection (Omnipaque 350 Mg/Ml 1 (11/22/18 22:00) Received Contrast (Hold Metformin- Contr (11/22/18 22:00) Ns (Ivpb) (Sodium Chloride 0.9% Ivpb Bag (11/22/18 22:00) Medications Given in ED Current Medications Medications Dose Ordered Sig/Hunter Route Start Time Stop Time Status Last Admin Dose Admin Al Hydrox/Mg Hydrox/Simethicone 30 ml ONCE ONCE PO 11/22/18 21:00 11/22/18 21:01 DC 11/22/18 21:11 30 ML Fentanyl Citrate 50 mcg ONCE ONCE IVP 11/22/18 21:00 11/22/18 21:02 DC 11/22/18 21:11 50 MCG Iohexol 100 ml ONCE ONCE IV 11/22/18 22:00 11/22/18 22:01 DC 11/22/18 22:03 100 ML Lidocaine HCl 15 ml ONCE ONCE PO 11/22/18 21:00 11/22/18 21:01 DC 11/22/18 21:11 15 ML Potassium Chloride 40 meq ONCE ONCE PO 11/22/18 21:30 11/22/18 21:31 DC 11/22/18 22:19 40 MEQ Sodium Chloride 100 ml ONCE ONCE IV 11/22/18 22:00 11/22/18 22:01 DC 11/22/18 22:03 80 ML Vital Signs/I&O 11/22/18 20:55 Temp 37.0 Pulse 85 Resp 18 B/P (MAP) 156/92 (113) Pulse Ox 99 O2 Delivery Room Air Capillary Refill : Departure Impression Primary Impression: Abdominal pain Qualified Codes: R10.9 - Unspecified abdominal pain Disposition: HOME, SELF-CARE Condition: Stable Departure-Patient Inst. Decision time for Depature: 22:31 Referrals: RIAZ REAL DO (PCP) Primary Care Physician CHERRY MARTIN (Family) Primary Care Physician Patient Instructions: Acute Abdomen (Belly Pain), Adult (DC) Add. Discharge Instructions: 1. Follow-up with your doctor next week LISS BAGLEY APRN Nov 22, 2018 21:06
[2018-11-22 21:09] LABS: HEMOGLOBIN 12.3 G/DL (11.5-16.0); WHITE BLOOD COUNT 8.6 10^3/uL (4.3-11.0)
[2018-11-22 21:10] LABS: BASOPHILS % (AUTO) 0 % (0-10); EOSINOPHILS # (AUTO) 0.1 10^3/uL (0.0-0.3); EOSINOPHILS % (AUTO) 1 % (0-10); HEMATOCRIT 37 % (35-52); LYMPHOCYTES # (AUTO) 2.7 X 10^3 (1.0-4.0); LYMPHOCYTES % (AUTO) 31 % (12-44); MEAN CORPUSCULAR HEMOGLOBIN 28 PG (25-34); MEAN CORPUSCULAR HGB CONC 33 G/DL (32-36); MEAN CORPUSCULAR VOLUME 86 FL (80-99); MEAN PLATELET VOLUME 9.9 FL (7.4-10.4); MONOCYTES # (AUTO) 0.5 X 10^3 (0.0-1.0); MONOCYTES % (AUTO) 6 % (0-12); NEUTROPHILS # (AUTO) 5.3 X 10^3 (1.8-7.8); NEUTROPHILS % (AUTO) 62 % (42-75); PLATELET COUNT 380 10^3/uL (130-400); RED CELL DISTRIBUTION WIDTH 14.7 % (10.0-14.5)
[2018-11-22 21:15] LABS: BILIRUBIN,URINE NEGATIVE (NEGATIVE); COLOR,URINE YELLOW; GLUCOSE, URINE (UA) 3+ (NEGATIVE); KETONES,URINE NEGATIVE (NEGATIVE); LEUKOCYTE ESTERASE ,URINE 3+ (NEGATIVE); NITRITE,URINE NEGATIVE (NEGATIVE); PH,URINE 5 (5-9); PROTEIN,URINE 1+ (NEGATIVE); UROBILINOGEN,URINE NORMAL (NORMAL)
[2018-11-22 21:21] LABS: CLARITY,URINE SL CLOUDY
[2018-11-22 21:22] LABS: BACTERIA,URINE TRACE /HPF; CALCIUM OXALATE CRYSTALS,UR MODERATE /LPF; YEAST,URINE FEW /HPF
[2018-11-22 21:28] LABS: ALANINE AMINOTRANSFERASE 11 U/L (0-55); ALBUMIN 4.2 GM/DL (3.2-4.5); ALKALINE PHOSPHATASE 78 U/L (40-136); BILIRUBIN,TOTAL 0.2 MG/DL (0.1-1.0); BUN/CREATININE RATIO 12; CARBON DIOXIDE 19 MMOL/L (21-32); CHLORIDE 110 MMOL/L (98-107); CREATININE SERUM 0.75 MG/DL (0.60-1.30); GFR ESTIMATED > 60; GLUCOSE 118 MG/DL (70-105); LIPASE 25 U/L (8-78); POTASSIUM 3.2 MMOL/L (3.6-5.0); SODIUM 138 MMOL/L (135-145); TOTAL PROTEIN 7.9 GM/DL (6.4-8.2)
[2018-11-22] MEDS ORDERED: KCL 20 MEQ TAB (K-DUR) PO ONE (21:30)
[2018-11-22] MEDS ORDERED: NS 100 ML (IVPB) BAG IV ONE (22:00)
[2018-11-22] MEDS ORDERED: IOHEXOL 350 MG/ML 100 ML (OMNIPAQUE 350) VIAL IV ONE (22:00)
[2018-11-22] MEDS ORDERED: HOLD METFORMIN - RECEIVED CONTRAST 20 ML VIAL IV SCH (22:00)
[2018-11-22 22:49] VITALS: BP 137/77
--- NOTE | 2018-11-23 07:42 | Diagnostic Imaging Report ---
PROCEDURE: CT abdomen and pelvis with contrast. TECHNIQUE: Multiple contiguous axial images were obtained through the abdomen and pelvis after administration of intravenous contrast. Auto Exposure Controls were utilized during the CT exam to meet ALARA standards for radiation dose reduction. INDICATION: Abdominal pain. COMPARISON: CTA chest, abdomen and pelvis 10/04/2018. FINDINGS: The lung bases are clear. Cholecystectomy. The liver, pancreas, spleen, adrenals, kidneys, collecting systems and decompressed bladder are negative. A 7.6 cm mass in the uterus is consistent with a uterine fibroid. The appendix is not identified and may be surgically absent. No evidence of appendicitis. No free intraperitoneal air or fluid. No lymphadenopathy. No evidence of bowel obstruction or inflammation. There are several moderately distended fluid-filled loops of small bowel which are nonspecific. No acute osseous findings. IMPRESSION: 1. Several moderately fluid filled distended loops of small bowel are nonspecific but could represent an enteritis. 2. Chronic and incidental findings as above. Dictated by: Dictated on workstation # [id number]
== END 2018-11-22 22:49 | disposition home or self-care (01) ==
LOC: EDUNIT# 20:22 → ER 20:23
DX: R10.84 Generalized abdominal pain (principal); E11.9 Type 2 diabetes mellitus without complications; J45.909 Unspecified asthma, uncomplicated; E78.00 Pure hypercholesterolemia, unspecified; Z87.440 Personal history of urinary (tract) infections; Z87.19 Personal history of other diseases of the digestive system; Z88.0 Allergy status to penicillin; Z88.8 Allergy status to other drugs, medicaments and biological substances; Z79.4 Long term (current) use of insulin; Z82.49 Family history of ischemic heart disease and other diseases of the circulatory system
CPT/HCPCS: 36415; 74177; 80053; 81000; 83690; 84703; 85025

== ENCOUNTER 2019-03-22 20:21 | Emergency (ER) | payer OTHER ==
[~2019-03-22] VITALS: Ht 160 cm; Wt 81.1 kg
[~2019-03-22 20:21] MED LIST changes: +TRM50T PO
[2019-03-22 20:34] LABS: BILIRUBIN,URINE NEGATIVE (NEGATIVE); CLARITY,URINE CLEAR; COLOR,URINE YELLOW; GLUCOSE, URINE (UA) 1+ (NEGATIVE); KETONES,URINE NEGATIVE (NEGATIVE); LEUKOCYTE ESTERASE ,URINE NEGATIVE (NEGATIVE); NITRITE,URINE NEGATIVE (NEGATIVE); PH,URINE 5.5 (5-9); PROTEIN,URINE NEGATIVE (NEGATIVE)
[2019-03-22 20:40] LABS: BACTERIA,URINE FEW /HPF
[2019-03-22 20:41] LABS: YEAST,URINE FEW /HPF
--- NOTE | 2019-03-22 20:46 | ED GU-Female ---
General Chief Complaint: - Urinary Stated Complaint: LOW BK PN/PAINFUL URINATION Source: patient Exam Limitations: no limitations History of Present Illness Date Seen by Provider: Mar 22, 2019 Time Seen by Provider: 20:23 Initial Comments Patient resents to ER by private conveyance with chief complaint of one week of back pain, dysuria. She has a history of frequent UTIs. 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 She has biopsy scheduled. She has not had this particular episode of dysuria worked up yet. She follows with Talha Mi at [facility]. No fevers chills nausea vomiting diarrhea. She's had some nausea earlier in the week she has Zofran at home as necessary. Allergies and Home Medications Allergies Coded Allergies: Penicillins (Verified Allergy, Mild, RASH, 06/12/18) metoclopramide (Verified Allergy, Mild, RED RASH/GI UPSET, 06/12/18) Home Medications Albuterol Sulfate 1 Puff Puff, 2 PUFF IH Q6H PRN for SHORTNESS OF BREATH, (Reported) Cetirizine HCl 10 Mg Capsule, 10 MG PO DAILY, (Reported) Guaifenesin 1,200 Mg Tab.er.12h, 1,200 MG PO DAILY, (Reported) Hydrocodone Bit/Acetaminophen 1 Tab Tab, 1 TAB PO Q6H PRN for PAIN-MODERATE Prescribed by: VALERIA CONTRERAS on 06/17/18 1312 Insulin Glargine,Hum.rec.anlog 100 Unit/1 Ml Insuln.pen, 50 UNITS SC HS, (Reported) Metformin HCl 1,000 Mg Tablet, 1,000 MG PO BID, (Reported) Nitrofurantoin Monohyd/M-Cryst 100 Mg Capsule, 100 MG PO BID Prescribed by: NOEL CHIN on 10/04/182342 Ondansetron HCl 4 Mg Tab, 4 MG PO Q4H Prescribed by: AIDEE SOUZA on 05/26/182202 Pantoprazole Sodium 40 Mg Tablet.dr, 40 MG PO DAILY Prescribed by: NOEL CHIN on 10/04/182342 Sucralfate 1 Gm/10 Ml Oral.susp, 1 GM PO QID Prescribed by: NOEL CHIN on 10/04/182342 Patient Home Medication List Home Medication List Reviewed: Yes Review of Systems Review of Systems Constitutional: No chills, No fever EENTM: No ear discharge, No ear pain Respiratory: No cough, No short of breath Cardiovascular: No chest pain, No edema Gastrointestinal: No abdominal pain, No nausea Genitourinary: denies burning, denies discharge; dysuria, flank pain Musculoskeletal: No back pain, No joint pain Skin: No pruritus, No rash Psychiatric/Neurological: Denies Headache, Denies Numbness, Denies Paresthesia Past Jycilty-Tsgnub-Rxesgc Hx Patient Social History Alcohol Use: Denies Use Recreational Drug Use: No 2nd Hand Smoke Exposure: No Recent Foreign Travel: No Contact w/Someone Who Travel: No Recent Hopitalizations: No Physical Abuse: No Sexual Abuse: No Mistreated: No Fear: No Immunizations Up To Date Tetanus Booster (TDap): Unknown PED Vaccines UTD: No Date of Pneumonia Vaccine: Dec 12, 2009 Date of Influenza Vaccine: Jan 09, 2019 Seasonal Allergies Seasonal Allergies: Yes Past Medical History Surgeries: Yes Abdominal, Eye Surgery, Gallbladder, Orthopedic Respiratory: Yes Asthma Currently Using CPAP: No Currently Using BIPAP: No Cardiac: Yes High Cholesterol Neurological: No Reproductive Disorders: No Female Reproductive Disorders: Denies Sexually Transmitted Disease: No HIV/AIDS: No Genitourinary: Yes UTI-Chronic Gastrointestinal: Yes (ESOPHAGEAL NARROWING; HIATAL HERNIA REPAIR 2016; CHOLECYSTECTOMY 06/2018) Gastroesophageal Reflux, Hiatal Hernia, Ulcer, Gall Bladder Disease Musculoskeletal: Yes Arthritis Endocrine: Yes Diabetes, Insulin dep HEENT: Yes (GLASSES; DENTAL DECAY) Loss of Vision: Bilateral Hearing Impairment: Denies Cancer: No Psychosocial: No Integumentary: No Blood Disorders: No Adverse Reaction/Blood Tranf: No (N/A) Family Medical History Arthritis 19 FATHER 19 MOTHER G8 SISTER Asthma 19 FATHER 19 MOTHER G8 SISTER Cataracts 19 MOTHER Diabetes mellitus 19 FATHER 19 MOTHER G8 SISTER FH: leukemia 19 FATHER Myocardial infarction 19 MOTHER Parkinson's disease 19 FATHER Thyroid disease 19 MOTHER Asthma, CAD Over 55 Years Old, Diabetes Physical Exam Vital Signs Vital Signs - First Documented 03/22/19 20:26 Temp 36.6 Pulse 83 Resp 20 B/P (MAP) 144/97 (113) Pulse Ox 100 Capillary Refill : Height, Weight, BMI Height: 5'3.00" Weight: 178lbs. 0.0oz. 80.631779so; 31.00 BMI Method:Stated General Appearance: WD/WN, no apparent distress HEENT: PERRL/EOMI, pharynx normal Neck: full range of motion, normal inspection Cardiovascular: normal peripheral pulses, regular rate, rhythm Respiratory: lungs clear, normal breath sounds, no respiratory distress, no accessory muscle use Gastrointestinal: normal bowel sounds, non tender, soft Back: normal inspection, CVA tenderness (R), CVA tenderness (L) Neurologic/Psychiatric: alert, normal mood/affect, oriented x 3 Skin: normal color, warm/dry Progress/Results/Core Measures Suspected Sepsis SIRS Temperature: Pulse: Respiratory Rate: Blood Pressure / Mean: Results/Orders Lab Results Laboratory Tests Test 03/22/19 20:30 Range/Units Urine Color YELLOW Urine Clarity CLEAR Urine pH 5.5 5-9 Urine Specific [place] >=1.030 1.016-1.022 Urine Protein NEGATIVE NEGATIVE Urine Glucose (UA) 1+ H NEGATIVE Urine Ketones NEGATIVE NEGATIVE Urine Nitrite NEGATIVE NEGATIVE Urine Bilirubin NEGATIVE NEGATIVE Urine Urobilinogen 0.2 < = 1.0 MG/DL Urine Leukocyte Esterase NEGATIVE NEGATIVE Urine RBC (Auto) NEGATIVE NEGATIVE Urine RBC NONE /HPF Urine WBC 5-10 H /HPF Urine Squamous Epithelial Cells 10-25 H /HPF Urine Crystals NONE /LPF Urine Bacteria FEW H /HPF Urine Casts NONE /LPF Urine Mucus NEGATIVE /LPF Urine Yeast FEW H /HPF Urine Culture Indicated YES My Orders Orders - ELKE PRICE Ua Culture If Indicated (03/22/19 20:27) Urine Culture (03/22/19 20:30) Vital Signs/I&O 03/22/19 20:26 Temp 36.6 Pulse 83 Resp 20 B/P (MAP) 144/97 (113) Pulse Ox 100 Capillary Refill : Progress Note : Time: 20:52 Progress Note Aseptic appearance. No history of kidney stones and no red blood cells seen in the urine. No unilateral flank pain. We'll treat her for bladder infection. Departure Impression Primary Impression: Urinary tract infection Qualified Codes: N30.00 - Acute cystitis without hematuria Disposition: HOME, SELF-CARE Condition: Stable Departure-Patient Inst. Decision time for Depature: 20:53 Referrals: RIAZ REAL DO (PCP) Primary Care Physician CHERRY MI (Family) Primary Care Physician Patient Instructions: Urinary Tract Infection, Adult (DC) Add. Discharge Instructions: Drink plenty of fluids. Keflex one capsule twice daily for the next 7 days. Keep your follow-up appointments at . All discharge instructions reviewed with patient and/or family. Voiced understanding. Scripts Cephalexin (Keflex) 500 Mg Capsule 500 MG PO BID for 7 Days, #14 CAP 0 Refills Prov: ELKE PRICE 03/22/19 ELKE PRICE Mar 22, 2019 20:46
[2019-03-22] MEDS ORDERED: CEPH-507 PO (20:57)
[2019-03-22] MEDS ORDERED: KETOROLAC 60 MG/2 ML VIAL IM ONE (21:00)
[2019-03-22] MEDS ORDERED: CEPHALEXIN 250 MG (KEFLEX) CAP PO ONE (21:00)
[2019-03-22 21:05] VITALS: BP 135/91
== END 2019-03-22 21:07 | disposition home or self-care (01) ==
LOC: EDUNIT# 20:21 → ER 20:22
DX: N39.0 Urinary tract infection, site not specified (principal); E78.00 Pure hypercholesterolemia, unspecified; J45.909 Unspecified asthma, uncomplicated; E11.9 Type 2 diabetes mellitus without complications; K21.9 Gastro-esophageal reflux disease without esophagitis; Z90.49 Acquired absence of other specified parts of digestive tract; Z88.0 Allergy status to penicillin; Z88.8 Allergy status to other drugs, medicaments and biological substances; Z79.4 Long term (current) use of insulin; Z80.6 Family history of leukemia; Z82.49 Family history of ischemic heart disease and other diseases of the circulatory system
CPT/HCPCS: 81000; 87088; 96372; 99284

== ENCOUNTER 2019-04-05 23:10 | Emergency (ER) | payer OTHER ==
[~2019-04-05] VITALS: Ht 167 cm; Wt 90.7 kg
[~2019-04-05 23:10] MED LIST changes: +CEPH-507 PO
[2019-04-05] MEDS ORDERED: NS IV 1000 ML 1,000 ML IV ONE (23:26)
[2019-04-05] MEDS ORDERED: ONDANSETRON 4 MG/2 ML (SDV) Z0FRAN IVP ONE (23:30)
[2019-04-05] MEDS ORDERED: PANTOPRAZOLE 40 MG (PROTONIX) VIAL IV ONE (23:30)
[2019-04-05 23:34] LABS: BASOPHILS % (AUTO) 0 % (0-10); EOSINOPHILS # (AUTO) 0.1 10^3/uL (0.0-0.3); EOSINOPHILS % (AUTO) 2 % (0-10); HEMATOCRIT 34 % (35-52); HEMOGLOBIN 11.1 G/DL (11.5-16.0); LYMPHOCYTES # (AUTO) 2.7 X 10^3 (1.0-4.0); LYMPHOCYTES % (AUTO) 43 % (12-44); MEAN CORPUSCULAR HEMOGLOBIN 28 PG (25-34); MEAN CORPUSCULAR HGB CONC 33 G/DL (32-36); MEAN CORPUSCULAR VOLUME 86 FL (80-99); MEAN PLATELET VOLUME 9.2 FL (7.4-10.4); MONOCYTES # (AUTO) 0.5 X 10^3 (0.0-1.0); MONOCYTES % (AUTO) 8 % (0-12); NEUTROPHILS # (AUTO) 2.9 X 10^3 (1.8-7.8); NEUTROPHILS % (AUTO) 47 % (42-75); PLATELET COUNT 492 10^3/uL (130-400); WHITE BLOOD COUNT 6.2 10^3/uL (4.3-11.0)
[2019-04-05 23:48] LABS: ALANINE AMINOTRANSFERASE 53 U/L (0-55); ALBUMIN 3.8 GM/DL (3.2-4.5); ALKALINE PHOSPHATASE 96 U/L (40-136); AMYLASE 44 U/L (25-125); BILIRUBIN,TOTAL 0.2 MG/DL (0.1-1.0); BUN/CREATININE RATIO 11; CALCIUM 8.4 MG/DL (8.5-10.1); CARBON DIOXIDE 20 MMOL/L (21-32); CHLORIDE 108 MMOL/L (98-107); CREATININE SERUM 0.73 MG/DL (0.60-1.30); GFR ESTIMATED > 60; GLUCOSE 236 MG/DL (70-105); LIPASE 57 U/L (8-78); POTASSIUM 3.5 MMOL/L (3.6-5.0); SODIUM 139 MMOL/L (135-145); TOTAL PROTEIN 7.5 GM/DL (6.4-8.2)
[2019-04-05 23:48] LABS: BILIRUBIN,URINE NEGATIVE (NEGATIVE); CLARITY,URINE CLEAR; COLOR,URINE YELLOW; GLUCOSE, URINE (UA) 3+ (NEGATIVE); KETONES,URINE NEGATIVE (NEGATIVE); LEUKOCYTE ESTERASE ,URINE NEGATIVE (NEGATIVE); NITRITE,URINE NEGATIVE (NEGATIVE); PH,URINE 5.5 (5-9); PROTEIN,URINE NEGATIVE (NEGATIVE)
[2019-04-05] MEDS ORDERED: KETOROLAC 30 MG/ML VIAL IVP STA (23:51)
[2019-04-05 23:54] LABS: BACTERIA,URINE TRACE /HPF; WBC,URINE 0-2 /HPF
[2019-04-06] MEDS ORDERED: HYOS0.1283 SL (00:55)
[2019-04-06] MEDS ORDERED: ONDA4TAB11 PO (00:55)
[2019-04-06] MEDS ORDERED: POLY17PO6 PO (00:56)
--- NOTE | 2019-04-06 00:56 | ED Abdominal Pain ---
General Chief Complaint: Abdominal/GI Problems Stated Complaint: ABD AND GROIN PAIN Nursing Triage Note: complaint of RLQ pain radiating into groin. Sepsis Screen: No Definite Risk Source of Information: Patient History of Present Illness Date Seen by Provider: Apr 05, 2019 Time Seen by Provider: 23:15 Initial Comments PT ARRIVES VIA POV FROM HOME C/O LEFT UPPER QUADRANT PAIN, RADIATING DOWN TO LEFT GROIN STATES SHE HAS HAD PAIN IN LUQ FOR A WEEK, AND PAIN IN LEFT GROIN BEGAN A COUPLE OF DAYS AGO STATES SHE HAS NO PAIN ON THE RIGHT AT THIS TIME NOTHING WORSENS OR IMPROVES PAIN SYMPTOMS ARE NO DIFFERENT TONIGHT IN ANY WAY HAS NOT SOUGHT CARE THIS WEEK FOR THIS PROBLEM HAS NOT TAKEN ANYTHING FOR PAIN AT ANY TIME PT HAS CHRONIC GENERALIZED ABDOMINAL PAIN, AND PROBLEMS WITH BOWELS. STATES SHE HAS BEEN SEEN AT FOR THESE ISSUES PT STATES SHE HAD A HIATAL HERNIA REPAIR DONE 3 YEARS AGO, AND STATES SHE "THINKS IT POPPED OPEN" STATES THAT SHE HAS 8-9 BM'S EVERY DAY STATES SHE HAD A "ANO-RECTAL SPHINCTER TEST" AT ON 03/10/19, AND HAD A COLONOSCOPY THERE 01/08 STATES SHE HAS NOT ACTUALLY SEEN ANYONE IN AN OFFICE FOR FOLLOW UP THERE SINCE AT LEAST BEFORE LAST OCTOBER--HAS ONLY HAD OUTPATIENT TESTS. PT HAS ONGOING NAUSEA OFF AND ON, NO VOMITING, BUT PT HAS CONTINUED TO EAT AND DRINK USUAL NO CONSTIPATION OR DIARRHEA, JUST MULTIPLE BM'S EVERY DAY. NO FEVER/SWEATS/CHILLS NO URINARY SYMPTOMS, AND IS VOIDING A NORMAL AMOUNT. WAS SEEN HERE A COUPLE OF WEEKS AGO FOR UTI --FINISHED UNKNOWN ANTIBIOTIC, BUT DID NOT FOLLOW UP WITH HER PCP OR ANYONE AFTER THAT ER VISIT. ON REVIEW, WAS SEEN HERE 03/22/19 FOR UTI, GIVEN RX FOR KEFLEX BID X 7 DAYS. NO CULTURE DONE, > 3 ISOLATES NOTED. STATES SHE IS BEING SEEN AT AND IS TO BE EVALUATED FOR "NEUROLOGICAL PROBLEM" WITH HER URINARY TRACT ??--ACCORDING TO PT. STATES SHE HAS NOT FOLLOWED UP WITH [facility] SINCE AT LEAST DECEMBER 2018, AND ONLY HAD LAB DONE AT THAT TIME. PT IS INSULIN-DEPENDENT DIABETIC, BUT HAS NOT CHECKED HER BLOOD SUGARS TODAY LMP 1 1/2 MONTHS AGO, NO CONTROL. PERIODS IRREGULAR. PCP: [facility], PRUDENCIO MARTIN Allergies and Home Medications Allergies Coded Allergies: Penicillins (Verified Allergy, Mild, RASH, 06/12/18) metoclopramide (Verified Allergy, Mild, RED RASH/GI UPSET, 06/12/18) Home Medications Albuterol Sulfate 1 Puff Puff, 2 PUFF IH Q6H PRN for SHORTNESS OF BREATH, (Repo rted) Cephalexin 500 Mg Capsule, 500 MG PO BID Prescribed by: ELKE PRICE on 03/22/192056 Cetirizine HCl 10 Mg Capsule, 10 MG PO DAILY, (Reported) Guaifenesin 1,200 Mg Tab.er.12h, 1,200 MG PO DAILY, (Reported) Hydrocodone Bit/Acetaminophen 1 Tab Tab, 1 TAB PO Q6H PRN for PAIN-MODERATE Prescribed by: VALERIA CONTRERAS on 06/17/18 131 Hyoscyamine Sulfate 0.125 Mg Tab.subl, 1-2 TAB SL Q4H Prescribed by: NOEL CHIN on 04/06/1954 Insulin Glargine,Hum.rec.anlog 100 Unit/1 Ml Insuln.pen, 50 UNITS SC HS, (Reported) Metformin HCl 1,000 Mg Tablet, 1,000 MG PO BID, (Reported) Nitrofurantoin Monohyd/M-Cryst 100 Mg Capsule, 100 MG PO BID Prescribed by: NOEL CHIN on 10/04/182342 Ondansetron 4 Mg Tab.rapdis, 4 MG PO Q4H Prescribed by: NOEL CHIN on 04/06/1954 Ondansetron HCl 4 Mg Tab, 4 MG PO Q4H Prescribed by: AIDEE SOUZA on 05/26/182202 Pantoprazole Sodium 40 Mg Tablet.dr, 40 MG PO DAILY Prescribed by: NOEL CHIN on 10/04/182342 Polyethylene Glycol 3350 17 Gm Powd.pack, 17 GM PO DAILY Prescribed by: NOEL CHIN on 04/06/1955 Sucralfate 1 Gm/10 Ml Oral.susp, 1 GM PO QID Prescribed by: NOEL CHIN on 10/04/182342 Patient Home Medication List Home Medication List Reviewed: Yes Review of Systems Review of Systems Constitutional: no symptoms reported; No chills, No diaphoresis, No dizziness, No fever Respiratory: No Symptoms Reported Cardiovascular: No Symptoms Reported Gastrointestinal: See HPI, Abdominal Pain; Denies Constipated, Denies Diarrhea; Nausea; Denies Poor Appetite, Denies Poor Fluid Intake, Denies Rectal Bleeding, Denies Vomiting Genitourinary: No Symptoms Reported Musculoskeletal: no symptoms reported Skin: no symptoms reported Psychiatric/Neurological: No Symptoms Reported Endocrine: No Symptoms Reported Hematologic/Lymphatic: No Symptoms Reported Past Kubgqbe-Tnrstr-Qymtgw Hx Past Med/Social Hx: Reviewed and Corrections made Patient Social History Alcohol Use: Denies Use Recreational Drug Use: No Smoking Status: Never a Smoker 2nd Hand Smoke Exposure: Yes Recent Foreign Travel: No Contact w/Someone Who Travel: No Recent Infectious Disease Expo: No Recent Hopitalizations: No Immunizations Up To Date Tetanus Booster (TDap): Unknown PED Vaccines UTD: No Date of Pneumonia Vaccine: Dec 12, 2009 Date of Influenza Vaccine: Jan 09, 2019 Seasonal Allergies Seasonal Allergies: Yes Past Medical History Surgeries: Yes (HIATAL HERNIA REPAIR 2016; HARLEY 06/2018; BILAT KNEE SCOPES; EYE SURGERY ) Abdominal, Eye Surgery ( ), Gallbladder, Orthopedic Respiratory: Yes Asthma Currently Using CPAP: No Currently Using BIPAP: No Cardiac: Yes High Cholesterol Neurological: No Reproductive Disorders: Yes Female Reproductive Disorders: Menstrual Problems Sexually Transmitted Disease: No HIV/AIDS: No Genitourinary: Yes Bladder Infection, UTI-Chronic Gastrointestinal: Yes (ESOPHAGEAL NARROWING; HIATAL HERNIA REPAIR 2016; CHOLECYSTECTOMY 06/2018) Gastroesophageal Reflux, Hiatal Hernia, Ulcer, Gall Bladder Disease Musculoskeletal: Yes Arthritis Endocrine: Yes Diabetes, Insulin dep HEENT: Yes (GLASSES; EYE SURGERY ; DENTAL DECAY) Loss of Vision: Bilateral Hearing Impairment: Denies Cancer: No Psychosocial: No Integumentary: No Blood Disorders: No Adverse Reaction/Blood Tranf: No (N/A) Family Medical History Arthritis 19 FATHER 19 MOTHER G8 SISTER Asthma 19 FATHER 19 MOTHER G8 SISTER Cataracts 19 MOTHER Diabetes mellitus 19 FATHER 19 MOTHER G8 SISTER FH: leukemia 19 FATHER Myocardial infarction 19 MOTHER Parkinson's disease 19 FATHER Thyroid disease 19 MOTHER Asthma, CAD Over 55 Years Old, Diabetes PSH: -EYE SURGERY INFANT -BILATERAL KNEE SCOPES -HIATAL HERNIA REPAIR 07/2016 -LAP HARLEY 06/2018 -LAST COLONOSCOPY 01/08/19 Physical Exam Vital Signs Vital Signs - First Documented 04/05/19 23:21 Temp 37.1 Pulse 88 Resp 18 B/P (MAP) 163/94 (117) Pulse Ox 100 O2 Delivery Room Air Capillary Refill : Less Than 3 Seconds Height/Weight/BMI Height: 5'3.00" Weight: 178lbs. 0.0oz. 80.183897dx; 32.00 BMI Method:Stated General Appearance: WD/WN, no apparent distress, other (SMILING, TALKATIVE, WALKS UPRIGHT AND MOVES QUICKLY WITHOUT DIFFICULTY. DOES NOT APPEAR TO BE IN ANY DISCOMFORT OR DISTRESS WHATSOEVER. TALKS NON STOP) HEENT: other (EXTENSIVE DENTAL DECAY--MOST TEETH DECAYED DOWN TO GUMS) Respiratory: normal breath sounds, no respiratory distress, no accessory muscle use Cardiovascular: regular rate, rhythm, no murmur Gastrointestinal: normal bowel sounds, soft, no organomegaly, no pulsatile mass; No distended, No guarding, No rebound; tenderness (MILD GENERALIZED TENDERNESS, BUT IS MORE TENDER ACROSS ENTIRE UPPER ABDOMEN. ); No hernia, No mass Extremities: normal inspection, no pedal edema, normal capillary refill Back: no CVA tenderness Neurologic/Psychiatric: anthropology department chair II-XII nml as tested, no motor/sensory deficits, alert, normal mood/affect, oriented x 3 Skin: normal color, warm/dry, other (FAINT ERYTHEMA ALL ACROSS UPPER ABDOMEN--APPEARS TO BE CHAFING FROM CLOTHES RUBBING AGAINST MOST PROTRUBERANT ASPECT OF UPPER ABDOMEN. AREA IS NOT WARM OR TENDER OR INDURATED. ) Progress/Results/Core Measures Results/Orders Lab Results Laboratory Tests Test 04/05/19 23:20 04/05/19 23:44 04/06/19 00:54 Range/Units White Blood Count 6.2 4.3-11.0 10^3/uL Red Blood Count 3.91 L 4.35-5.85 10^6/uL Hemoglobin 11.1 L 11.5-16.0 G/DL Hematocrit 34 L 35-52 % Mean Corpuscular Volume 86 80-99 FL Mean Corpuscular Hemoglobin 28 25-34 PG Mean Corpuscular Hemoglobin Concent 33 32-36 G/DL Red Cell Distribution Width 16.0 H 10.0-14.5 % Platelet Count 492 H 130-400 10^3/uL Mean Platelet Volume 9.2 7.4-10.4 FL Neutrophils (%) (Auto) 47 42-75 % Lymphocytes (%) (Auto) 43 12-44 % Monocytes (%) (Auto) 8 0-12 % Eosinophils (%) (Auto) 2 0-10 % Basophils (%) (Auto) 0 0-10 % Neutrophils # (Auto) 2.9 1.8-7.8 X 10^3 Lymphocytes # (Auto) 2.7 1.0-4.0 X 10^3 Monocytes # (Auto) 0.5 0.0-1.0 X 10^3 Eosinophils # (Auto) 0.1 0.0-0.3 10^3/uL Basophils # (Auto) 0.0 0.0-0.1 10^3/uL Sodium Level 139 135-145 MMOL/L Potassium Level 3.5 L 3.6-5.0 MMOL/L Chloride Level 108 H 98-107 MMOL/L Carbon Dioxide Level 20 L 21-32 MMOL/L Anion Gap 11 5-14 MMOL/L Blood Urea Nitrogen 8 7-18 MG/DL Creatinine 0.73 0.60-1.30 MG/DL Estimat Glomerular Filtration Rate > 60 BUN/Creatinine Ratio 11 Glucose Level 236 H 70-105 MG/DL Calcium Level 8.4 L 8.5-10.1 MG/DL Corrected Calcium 8.6 8.5-10.1 MG/DL Total Bilirubin 0.2 0.1-1.0 MG/DL Aspartate Amino Transf (AST/SGOT) 37 H 5-34 U/L Alanine Aminotransferase (ALT/SGPT) 53 0-55 U/L Alkaline Phosphatase 96 40-136 U/L Total Protein 7.5 6.4-8.2 GM/DL Albumin 3.8 3.2-4.5 GM/DL Amylase Level 44 25-125 U/L Lipase 57 8-78 U/L Urine Color YELLOW Urine Clarity CLEAR Urine pH 5.5 5-9 Urine Specific [place] 1.020 1.016-1.022 Urine Protein NEGATIVE NEGATIVE Urine Glucose (UA) 3+ H NEGATIVE Urine Ketones NEGATIVE NEGATIVE Urine Nitrite NEGATIVE NEGATIVE Urine Bilirubin NEGATIVE NEGATIVE Urine Urobilinogen 0.2 < = 1.0 MG/DL Urine Leukocyte Esterase NEGATIVE NEGATIVE Urine RBC (Auto) 2+ H NEGATIVE Urine RBC 5-10 H /HPF Urine WBC 0-2 /HPF Urine Crystals NONE /LPF Urine Bacteria TRACE /HPF Urine Casts NONE /LPF Urine Mucus NEGATIVE /LPF Urine Culture Indicated NO Serum Test, Qualitative NEGATIVE NEGATIVE My Orders Orders - ELSY,NOEL K DO Ed Iv/Invasive Line Start (04/05/19 23:26) Amylase (04/05/19 23:26) Cbc With Automated Diff (04/05/19 23:26) Comprehensive Metabolic Panel (04/05/19 23:26) Lipase (04/05/19 23:26) Ua Culture If Indicated (04/05/19 23:26) Ed Iv/Invasive Line Start (04/05/19 23:26) Ns Iv 1000 Ml (Sodium Chloride 0.9%) (04/05/19 23:26) Ondansetron Injection (Zofran Injectio (04/05/19 23:30) Pantoprazole Injection (Protonix Injecti (04/05/19 23:30) Ketorolac Injection (Toradol Injection) (04/05/19 23:51) Ct Abd/Pelvis Wo(Kidney Stone) (04/06/19 00:01) Acute Abd Series (04/06/19 00:01) Hcg,Qualitative Serum (04/06/19 00:58) Medications Given in ED Current Medications Medications Dose Ordered Sig/Hunter Route Start Time Stop Time Status Last Admin Dose Admin Ondansetron HCl 4 mg ONCE ONCE IVP 04/05/19 23:30 04/05/19 23:31 DC 04/05/19 23:42 4 MG Pantoprazole 40 mg ONCE ONCE IV 04/05/19 23:30 04/05/19 23:31 DC 04/05/19 23:42 40 MG Sodium Chloride 1,000 ml @ 0 mls/hr Q0M ONCE IV 04/05/19 23:26 04/05/19 23:27 DC 04/05/19 23:42 0 MLS/HR Vital Signs/I&O 04/05/19 04/06/19 23:21 01:27 Temp 37.1 37.0 Pulse 88 79 Resp 18 16 B/P (MAP) 163/94 (117) 135/94 (117) Pulse Ox 100 99 O2 Delivery Room Air Room Air Blood Pressure Mean: 117 Progress Progress Note : Progress Note NO FURTHER COMPLAINTS DURING ER STAY UNEVENTFUL ER STAY Diagnostic Imaging Comments ABDOMEN XRAYS--NO ACUTE PROCESS, LARGE AMOUNT OF STOOL IN COLON. PENDING RADIOLOGIST REVIEW CT ABDOMEN/PELVIS--NO ACUTE PROCESS, QUESTIONABLE 1-2 MM STONE IN DISTAL RIGHT URETER OF UPPER PELVIS. NON-OBSTRUCTING RIGHT INTRARENAL NEPHROLITHIASIS. OTHERWISE NO ACUTE PROCESS--PER [facility] VIA FAX AT 0048 Reviewed: Reviewed by Me Departure Impression Primary Impression: LUQ AND LEFT GROIN PAIN Additional Impressions: Constipation RIGHT RENAL STONES Microscopic hematuria Diabetes mellitus, insulin dependent (IDDM), uncontrolled Disposition: HOME, SELF-CARE Condition: Stable Departure-Patient Inst. Referrals: RIAZ REAL DO (PCP) Primary Care Physician CHERRY MARTIN (Family) Primary Care Physician Patient Instructions: Constipation, Adult (DC), Acute Abdomen (Belly Pain), Adult (DC) Add. Discharge Instructions: LOTS OF CLEAR LIQUIDS TAKE MIRALAX DAILY CONTINUE PRILOSEC PRESCRIBED FOLLOW UP WITH [facility] THIS WEEK FOR FURTHER CARE All discharge instructions reviewed with patient and/or family. Voiced understanding. Scripts Polyethylene Glycol 3350 (Miralax) 17 Gm Powd.pack 17 GM PO DAILY, #1 EACH Prov: NOEL CHIN DO 04/06/19 Hyoscyamine Sulfate (Levsin-Sl) 0.125 Mg Tab.subl 1-2 TAB SL Q4H for Abdominal Pain, #15 TAB Prov: NOEL CHIN DO 04/06/19 Ondansetron (Ondansetron Odt) 4 Mg Tab.rapdis 4 MG PO Q4H for Nausea/Vomiting, #10 TAB Prov: NOLE CHIN DO 04/06/19 NOEL CHIN DO Apr 06, 2019 00:56
[2019-04-06 01:27] VITALS: BP 135/94
--- NOTE | 2019-04-06 08:17 | Diagnostic Imaging Report ---
EXAMINATION: CT Abdomen Pelvis without contrast. TECHNIQUE: Multiple contiguous axial images were obtained through the abdomen and pelvis without the use of intravenous contrast. All CT scans use one or more of the following dose optimizing techniques: automated exposure control, MA and/or KvP adjustment based on a patient size and exam type, or iterative reconstruction. HISTORY: Abdominal pain COMPARISON: 11/22/2018 FINDINGS: Limited views of the lower thorax are unremarkable. The liver is normal without focal lesion. There is no biliary ductal dilation. Gallbladder is surgically absent. Pancreas is normal. Spleen is normal. Adrenal glands are normal. There are two unchanged tiny stones in the right kidney without obstruction. No suspicious renal lesions. No ureteral calculi. There is no hydronephrosis. Urinary bladder is normal. Lobulated appearance to the uterus likely represents fibroids as seen on the prior exam. There are no dilated loops of large or small bowel. No obstruction or inflammation. No free fluid or air. No abdominal or pelvic lymphadenopathy. Aorta is normal in caliber without aneurysm. There are no suspicious osseus lesions. IMPRESSION: 1. No acute abnormality in the abdomen or pelvis. Dictated by: Dictated on workstation # [id number]
--- NOTE | 2019-04-06 08:21 | Diagnostic Imaging Report ---
INDICATION: Abdominal pain and groin pain. Time of exam: 12:11 AM The heart size is normal. The lungs appear to be clear. No definite free air is identified. There are surgical clips in the gallbladder fossa. Bowel gas pattern is nonobstructed. There is moderate stool in the right colon. There is moderate stool in the transverse colon. No pathologic calcifications are seen. IMPRESSION: Moderate stool. The study is otherwise unremarkable. Dictated by: Dictated on workstation # [id number]
== END 2019-04-06 01:29 | disposition home or self-care (01) ==
LOC: EDUNIT# 23:10 → ER 23:12
DX: K59.00 Constipation, unspecified (principal); N20.0 Calculus of kidney; R31.21 Asymptomatic microscopic hematuria; E11.9 Type 2 diabetes mellitus without complications; J45.909 Unspecified asthma, uncomplicated; K21.9 Gastro-esophageal reflux disease without esophagitis; Z90.49 Acquired absence of other specified parts of digestive tract; Z88.0 Allergy status to penicillin; Z88.8 Allergy status to other drugs, medicaments and biological substances; Z79.4 Long term (current) use of insulin; Z77.22 Contact with and (suspected) exposure to environmental tobacco smoke (acute) (chronic); Z82.49 Family history of ischemic heart disease and other diseases of the circulatory system
CPT/HCPCS: 36415; 74022; 74176; 80053; 81000; 82150; 83690; 84703; 85025

== ENCOUNTER 2019-04-13 20:45 | Emergency (ER) | payer OTHER ==
[~2019-04-13] VITALS: Ht 160 cm; Wt 81.7 kg
[~2019-04-13 20:45] MED LIST changes: +HYOS0.1283 SL; +ONDA4TAB11 PO; +POLY17PO6 PO
[2019-04-13 21:15] LABS: BILIRUBIN,URINE NEGATIVE (NEGATIVE); CLARITY,URINE SL CLOUDY; COLOR,URINE YELLOW; GLUCOSE, URINE (UA) 3+ (NEGATIVE); KETONES,URINE TRACE (NEGATIVE); LEUKOCYTE ESTERASE ,URINE 1+ (NEGATIVE); NITRITE,URINE POSITIVE (NEGATIVE); PROTEIN,URINE 2+ (NEGATIVE)
[2019-04-13] MEDS ORDERED: NS IV 1000 ML 1,000 ML IV SCH (21:15)
[2019-04-13] MEDS ORDERED: KETOROLAC 30 MG/ML VIAL IVP ONE (21:15)
[2019-04-13] MEDS ORDERED: HYOSCYAMINE 0.125 MG (LEVSIN) TAB PO ONE (21:15)
[2019-04-13] MEDS ORDERED: ONDANSETRON 4 MG/2 ML (SDV) Z0FRAN IVP ONE (21:15)
--- NOTE | 2019-04-13 21:23 | ED Abdominal Pain ---
General Chief Complaint: Abdominal/GI Problems Stated Complaint: VOMITTING,ABD PAIN Nursing Triage Note: PT AMBULATE TO TRIAGE WITH C/O ABD AND FLANK PAIN. PT WAS SEEN AT THIS ED LAST WEEK AND DX WITH KIDNEY STONES. PT STATES SHE FOLLOWED UP WITH HER PCP AND WAS TOLD TO CONTINUE TO TAKE THE MEDS GIVEN AT THE ED. Sepsis Screen: No Definite Risk Source of Information: Patient Exam Limitations: No Limitations History of Present Illness Date Seen by Provider: Apr 13, 2019 Time Seen by Provider: 21:12 Initial Comments To ER by private vehicle with reports of diffuse abdominal pain and upper back pain. She was seen here last week for the same and states she was told she had "kidney stones". She denies fevers or chills or diarrhea but reports nausea and vomiting today. Timing/Duration: 1 Week Severity/Quality: Moderate Location: Generalized Abdomen Radiation: No Radiation Activities at Onset: None Associated Symptoms: Nausea/Vomiting Allergies and Home Medications Allergies Coded Allergies: Penicillins (Verified Allergy, Mild, RASH, 06/12/18) metoclopramide (Verified Allergy, Mild, RED RASH/GI UPSET, 06/12/18) Home Medications Albuterol Sulfate 1 Puff Puff, 2 PUFF IH Q6H PRN for SHORTNESS OF BREATH, (Reported) Cephalexin 500 Mg Capsule, 500 MG PO BID Prescribed by: ELKE PRICE on 03/22/192056 Cetirizine HCl 10 Mg Capsule, 10 MG PO DAILY, (Reported) Guaifenesin 1,200 Mg Tab.er.12h, 1,200 MG PO DAILY, (Reported) Hydrocodone Bit/Acetaminophen 1 Tab Tab, 1 TAB PO Q6H PRN for PAIN-MODERATE Prescribed by: VALERIA CONTRERAS on 06/17/18 1312 Hyoscyamine Sulfate 0.125 Mg Tab.subl, 1-2 TAB SL Q4H Prescribed by: NOEL CHIN on 04/06/19 0055 Insulin Glargine,Hum.rec.anlog 100 Unit/1 Ml Insuln.pen, 50 UNITS SC HS, (Reported) Metformin HCl 1,000 Mg Tablet, 1,000 MG PO BID, (Reported) Nitrofurantoin Monohyd/M-Cryst 100 Mg Capsule, 100 MG PO BID Prescribed by: NOEL CHIN on 10/04/18 2343 Ondansetron 4 Mg Tab.rapdis, 4 MG PO Q4H Prescribed by: NOEL CHIN on 04/06/1953 Ondansetron HCl 4 Mg Tab, 4 MG PO Q4H Prescribed by: AIDEE SOUZA on 05/26/182202 Pantoprazole Sodium 40 Mg Tablet.dr, 40 MG PO DAILY Prescribed by: NOEL CHIN on 10/04/182342 Polyethylene Glycol 3350 17 Gm Powd.pack, 17 GM PO DAILY Prescribed by: NOEL CHIN on 04/06/1955 Sucralfate 1 Gm/10 Ml Oral.susp, 1 GM PO QID Prescribed by: NOEL CHIN on 10/04/182342 Patient Home Medication List Home Medication List Reviewed: Yes Review of Systems Review of Systems Constitutional: see HPI EENTM: No Symptoms Reported Respiratory: No Symptoms Reported Cardiovascular: No Symptoms Reported Gastrointestinal: See HPI, Abdominal Pain, Nausea Genitourinary: No Symptoms Reported Musculoskeletal: no symptoms reported Skin: no symptoms reported Psychiatric/Neurological: No Symptoms Reported Endocrine: No Symptoms Reported Hematologic/Lymphatic: No Symptoms Reported Past Inaaxvr-Qypkun-Umtahy Hx Patient Social History Alcohol Use: Denies Use Recreational Drug Use: No Smoking Status: Never a Smoker 2nd Hand Smoke Exposure: Yes Recent Foreign Travel: No Contact w/Someone Who Travel: No Recent Infectious Disease Expo: No Recent Hopitalizations: No Physical Abuse: No Sexual Abuse: No Mistreated: No Fear: No Immunizations Up To Date Tetanus Booster (TDap): Unknown PED Vaccines UTD: No Date of Pneumonia Vaccine: Dec 12, 2009 Date of Influenza Vaccine: Jan 09, 2019 Seasonal Allergies Seasonal Allergies: Yes Past Medical History Surgeries: Yes (HIATAL HERNIA REPAIR 2016; HARLEY 06/2018; BILAT KNEE SCOPES; EYE SURGERY ) Abdominal, Eye Surgery, Gallbladder, Orthopedic Respiratory: Yes Asthma Currently Using CPAP: No Currently Using BIPAP: No Cardiac: Yes High Cholesterol Neurological: No Reproductive Disorders: Yes Female Reproductive Disorders: Menstrual Problems Sexually Transmitted Disease: No HIV/AIDS: No Genitourinary: Yes Bladder Infection, UTI-Chronic Gastrointestinal: Yes (ESOPHAGEAL NARROWING; HIATAL HERNIA REPAIR 2016; CHOLECYSTECTOMY 06/2018) Gastroesophageal Reflux, Hiatal Hernia, Ulcer, Gall Bladder Disease Musculoskeletal: Yes Arthritis Endocrine: Yes Diabetes, Insulin dep HEENT: Yes (GLASSES; EYE SURGERY ; DENTAL DECAY) Loss of Vision: Bilateral Hearing Impairment: Denies Cancer: No Psychosocial: No Integumentary: No Blood Disorders: No Adverse Reaction/Blood Tranf: No (N/A) Family Medical History Arthritis 19 FATHER 19 MOTHER G8 SISTER Asthma 19 FATHER 19 MOTHER G8 SISTER Cataracts 19 MOTHER Diabetes mellitus 19 FATHER 19 MOTHER G8 SISTER FH: leukemia 19 FATHER Myocardial infarction 19 MOTHER Parkinson's disease 19 FATHER Thyroid disease 19 MOTHER Asthma, CAD Over 55 Years Old, Diabetes PSH: -EYE SURGERY INFANT -BILATERAL KNEE SCOPES -HIATAL HERNIA REPAIR 07/2016 -LAP HARLEY 06/2018 -LAST COLONOSCOPY 01/08/19 Physical Exam Vital Signs Vital Signs - First Documented 04/13/19 20:54 Temp 36.9 Pulse 99 Resp 18 B/P (MAP) 137/86 (103) O2 Delivery Room Air Capillary Refill : Less Than 3 Seconds Height/Weight/BMI Height: 5'3.00" Weight: 178lbs. 0.0oz. 80.075189fc; 31.00 BMI Method:Stated General Appearance: WD/WN, no apparent distress HEENT: PERRL/EOMI, normal ENT inspection Respiratory: no respiratory distress, no accessory muscle use Cardiovascular: regular rate, rhythm, no murmur Gastrointestinal: normal bowel sounds, non tender, soft Extremities: normal range of motion, non-tender Neurologic/Psychiatric: alert, normal mood/affect, oriented x 3 Skin: normal color, warm/dry Progress/Results/Core Measures Results/Orders Lab Results Laboratory Tests Test 04/13/19 21:05 04/13/19 21:10 Range/Units Urine Color YELLOW Urine Clarity SL CLOUDY Urine pH 7.0 5-9 Urine Specific [place] 1.020 1.016-1.022 Urine Protein 2+ H NEGATIVE Urine Glucose (UA) 3+ H NEGATIVE Urine Ketones TRACE H NEGATIVE Urine Nitrite POSITIVE H NEGATIVE Urine Bilirubin NEGATIVE NEGATIVE Urine Urobilinogen 0.2 < = 1.0 MG/DL Urine Leukocyte Esterase 1+ H NEGATIVE Urine RBC (Auto) 3+ H NEGATIVE Urine RBC 25-50 H /HPF Urine WBC 10-25 H /HPF Urine Crystals NONE /LPF Urine Bacteria LARGE H /HPF Urine Casts NONE /LPF Urine Mucus NEGATIVE /LPF Urine Culture Indicated YES White Blood Count 16.0 H 4.3-11.0 10^3/uL Red Blood Count 4.31 L 4.35-5.85 10^6/uL Hemoglobin 11.8 11.5-16.0 G/DL Hematocrit 36 35-52 % Mean Corpuscular Volume 84 80-99 FL Mean Corpuscular Hemoglobin 27 25-34 PG Mean Corpuscular Hemoglobin Concent 33 32-36 G/DL Red Cell Distribution Width 15.8 H 10.0-14.5 % Platelet Count 462 H 130-400 10^3/uL Mean Platelet Volume 9.5 7.4-10.4 FL Neutrophils (%) (Auto) 82 H 42-75 % Lymphocytes (%) (Auto) 11 L 12-44 % Monocytes (%) (Auto) 6 0-12 % Eosinophils (%) (Auto) 0 0-10 % Basophils (%) (Auto) 0 0-10 % Neutrophils # (Auto) 13.1 H 1.8-7.8 X 10^3 Lymphocytes # (Auto) 1.8 1.0-4.0 X 10^3 Monocytes # (Auto) 1.0 0.0-1.0 X 10^3 Eosinophils # (Auto) 0.1 0.0-0.3 10^3/uL Basophils # (Auto) 0.0 0.0-0.1 10^3/uL Neutrophils % (Manual) 88 % Lymphocytes % (Manual) 7 % Monocytes % (Manual) 5 % Blood Morphology Comment NORMAL Sodium Level 134 L 135-145 MMOL/L Potassium Level 4.1 3.6-5.0 MMOL/L Chloride Level 99 98-107 MMOL/L Carbon Dioxide Level 21 21-32 MMOL/L Anion Gap 14 5-14 MMOL/L Blood Urea Nitrogen 8 7-18 MG/DL Creatinine 0.84 0.60-1.30 MG/DL Estimat Glomerular Filtration Rate > 60 BUN/Creatinine Ratio 10 Glucose Level 245 H 70-105 MG/DL Calcium Level 9.2 8.5-10.1 MG/DL Corrected Calcium 9.0 8.5-10.1 MG/DL Total Bilirubin 0.4 0.1-1.0 MG/DL Aspartate Amino Transf (AST/SGOT) 15 5-34 U/L Alanine Aminotransferase (ALT/SGPT) 30 0-55 U/L Alkaline Phosphatase 115 40-136 U/L Total Protein 8.1 6.4-8.2 GM/DL Albumin 4.2 3.2-4.5 GM/DL Lipase 22 8-78 U/L My Orders Orders - LISS BAGLEY APRN Ns Iv 1000 Ml (Sodium Chloride 0.9%) (04/13/19 21:15) Ondansetron Injection (Zofran Injectio (04/13/19 21:15) Ketorolac Injection (Toradol Injection) (04/13/19 21:15) Hyoscyamine Sl Tablet (Levsin Sl Tablet) (04/13/19 21:15) Ceftriaxone For Iv Use (Rocephin For I (04/13/19 21:45) Ct Abdomen/Pelvis W (04/13/19 21:33) Iohexol Injection (Omnipaque 350 Mg/Ml 1 (04/13/19 22:00) Ns (Ivpb) (Sodium Chloride 0.9% Ivpb Bag (04/13/19 22:00) Medications Given in ED Current Medications Medications Dose Ordered Sig/Hunter Route Start Time Stop Time Status Last Admin Dose Admin Ceftriaxone Sodium 1000 mg/ Sterile Water 10 ml @ 200 mls/hr ONCE ONCE IV 04/13/19 21:45 04/13/19 21:47 DC 04/13/19 22:03 200 MLS/HR Hyoscyamine Sulfate 0.25 mg ONCE ONCE PO 04/13/19 21:15 04/13/19 21:16 DC 04/13/19 21:21 0.25 MG Iohexol 100 ml ONCE ONCE IV 04/13/19 22:00 04/13/19 22:01 UNV 04/13/19 21:56 100 ML Ketorolac Tromethamine 30 mg ONCE ONCE IVP 04/13/19 21:15 04/13/19 21:16 DC 04/13/19 21:20 30 MG Ondansetron HCl 8 mg ONCE ONCE IVP 04/13/19 21:15 04/13/19 21:16 DC 04/13/19 21:20 8 MG Sodium Chloride 80 ml ONCE ONCE IV 04/13/19 22:00 04/13/19 22:01 UNV 04/13/19 21:56 80 ML Vital Signs/I&O 04/13/19 20:54 Temp 36.9 Pulse 99 Resp 18 B/P (MAP) 137/86 (103) O2 Delivery Room Air Blood Pressure Mean: 103 Departure Impression Primary Impression: Urinary tract infection Qualified Codes: N30.00 - Acute cystitis without hematuria Disposition: HOME, SELF-CARE Condition: Stable Departure-Patient Inst. Decision time for Depature: 22:09 Referrals: RIAZ REAL DO (PCP) Primary Care Physician CHERRY MARTIN (Family) Primary Care Physician Patient Instructions: Urinary Tract Infection, Adult (DC) Add. Discharge Instructions: 1. Tylenol and motrin for pain. 2. Antibiotics as directed 3. Nausea medication as needed 4. Return to Er for any high fevers, worsening pain, uncontrollable nausea/vomiting. See your doctor later this week for recheck All discharge instructions reviewed with patient and/or family. Voiced understanding. Scripts Cefuroxime Axetil (Cefuroxime) 500 Mg Tablet 500 MG PO BID, #10 TAB Prov: LISS BAGLEY APRN 04/13/19 LISS BAGLEY APRN Apr 13, 2019 21:23
[2019-04-13 21:29] LABS: BACTERIA,URINE LARGE /HPF; RBC,URINE 25-50 /HPF
[2019-04-13 21:33] LABS: BASOPHILS % (AUTO) 0 % (0-10); EOSINOPHILS # (AUTO) 0.1 10^3/uL (0.0-0.3); EOSINOPHILS % (AUTO) 0 % (0-10); HEMATOCRIT 36 % (35-52); HEMOGLOBIN 11.8 G/DL (11.5-16.0); LYMPHOCYTES # (AUTO) 1.8 X 10^3 (1.0-4.0); LYMPHOCYTES % (AUTO) 11 % (12-44); MEAN CORPUSCULAR HEMOGLOBIN 27 PG (25-34); MEAN CORPUSCULAR HGB CONC 33 G/DL (32-36); MEAN CORPUSCULAR VOLUME 84 FL (80-99); MEAN PLATELET VOLUME 9.5 FL (7.4-10.4); MONOCYTES % (AUTO) 6 % (0-12); NEUTROPHILS # (AUTO) 13.1 X 10^3 (1.8-7.8); NEUTROPHILS % (AUTO) 82 % (42-75); PLATELET COUNT 462 10^3/uL (130-400); RED CELL DISTRIBUTION WIDTH 15.8 % (10.0-14.5)
[2019-04-13] MEDS ORDERED: cefTRIAXone FOR IV USE 1,000 MG in WATER (STERILE) FOR INJECTION 10 ML IV ONE (21:45)
[2019-04-13 21:54] LABS: ALANINE AMINOTRANSFERASE 30 U/L (0-55); ALBUMIN 4.2 GM/DL (3.2-4.5); ALKALINE PHOSPHATASE 115 U/L (40-136); BILIRUBIN,TOTAL 0.4 MG/DL (0.1-1.0); BUN/CREATININE RATIO 10; CALCIUM 9.2 MG/DL (8.5-10.1); CARBON DIOXIDE 21 MMOL/L (21-32); CHLORIDE 99 MMOL/L (98-107); CREATININE SERUM 0.84 MG/DL (0.60-1.30); GFR ESTIMATED > 60; GLUCOSE 245 MG/DL (70-105); LIPASE 22 U/L (8-78); POTASSIUM 4.1 MMOL/L (3.6-5.0); SODIUM 134 MMOL/L (135-145); TOTAL PROTEIN 8.1 GM/DL (6.4-8.2)
[2019-04-13 21:59] LABS: LYMPHOCYTES % (MANUAL) 7 %; MONOCYTES % (MANUAL) 5 %; NEUTROPHILS % (MANUAL) 88 %
[2019-04-13] MEDS ORDERED: IOHEXOL 350 MG/ML 100 ML (OMNIPAQUE 350) VIAL IV ONE (22:00)
[2019-04-13] MEDS ORDERED: NS 100 ML (IVPB) BAG IV ONE (22:00)
[2019-04-13 22:03] LABS: RBC MORPH NORMAL
[2019-04-13] MEDS ORDERED: CEFU500T63 PO (22:11)
[2019-04-13] MEDS ORDERED: RX-ONDANSETRON 4 MG ODT (ZOFRAN) PPK #4 PO STA (22:12)
[2019-04-13] MEDS ORDERED: PROMETHAZINE INJ 25 MG/ML (PHENERGAN) AMP IVP ONE (22:45)
[2019-04-13 23:00] VITALS: BP 137/86
--- NOTE | 2019-04-14 07:14 | Diagnostic Imaging Report ---
PROCEDURE: CT abdomen and pelvis with contrast. TECHNIQUE: Multiple contiguous axial images were obtained through the abdomen and pelvis after administration of intravenous contrast. Auto Exposure Controls were utilized during the CT exam to meet ALARA standards for radiation dose reduction. DATE: April 13, 2019. COMPARISON: Abdominal radiographs April 06, 2019. INDICATION: 49-year-old female, abdominal pain and vomiting. FINDINGS: The visualized portions of the lung bases are clear. The heart is not enlarged. There is no identified pericardial effusion. The liver is normal in size and contour. There is no identified liver lesion. The main, right, and left portal veins are patent. The patient is status post cholecystectomy. There is no biliary ductal dilation. The main pancreatic duct is not abnormally dilated. There is grossly unremarkable evaluation of the pancreatic parenchyma. The spleen is normal in size. The adrenal glands are unremarkable. There is a 4 mm nonobstructing right renal stone on axial image 37. There is no identified ureteral stone. There are pelvic calcifications consistent with phleboliths. There is no hydronephrosis. Evaluation of the renal parenchyma is unremarkable. The urinary bladder is grossly unremarkable in appearance. The intestinal tract is not distended. There is no evidence to suggest acute appendicitis. There is no free intraperitoneal air. There is no drainable fluid collection. There is no free pelvic fluid. There are atherosclerotic calcifications. There is no identified abnormally enlarged lymph node in the abdomen or pelvis which meets CT size criteria for adenopathy. There is no identified acute bony abnormality. IMPRESSION: CT ABDOMEN AND PELVIS. 1. No identified acute abnormality in the abdomen or pelvis. 2. 4 mm nonobstructing right renal stone. 3. Atherosclerotic calcifications are noted. Dictated by: Dictated on workstation # [id number]
== END 2019-04-13 23:00 | disposition home or self-care (01) ==
LOC: EDUNIT# 20:45 → ER 20:46
DX: N39.0 Urinary tract infection, site not specified (principal); E11.9 Type 2 diabetes mellitus without complications; J45.909 Unspecified asthma, uncomplicated; K21.9 Gastro-esophageal reflux disease without esophagitis; Z88.0 Allergy status to penicillin; Z88.8 Allergy status to other drugs, medicaments and biological substances; Z79.4 Long term (current) use of insulin; Z77.22 Contact with and (suspected) exposure to environmental tobacco smoke (acute) (chronic); Z82.49 Family history of ischemic heart disease and other diseases of the circulatory system
CPT/HCPCS: 36415; 74177; 80053; 81000; 83690; 85007; 85027; 87077; 87088; 87186

== ENCOUNTER 2019-06-21 16:19 | Emergency (ER) | payer OTHER ==
[~2019-06-21] VITALS: Ht 160 cm; Wt 83.9 kg
[~2019-06-21 16:19] MED LIST changes: +CEFU500T63 PO; -GUAI400T71 PO; +GUAI400T86 PO; -MONT10TA24 PO; +MONT10TA26 PO; -ONDA8TAB12 PO; +ONDA8TAB15 PO
[2019-06-21 16:25] VITALS: BP 157/97
--- NOTE | 2019-06-21 16:32 | ED Upper Extremity ---
General Chief Complaint: Upper Extremity Stated Complaint: R HAND SWELLING Source: patient Exam Limitations: no limitations History of Present Illness Date Seen by Provider: Jun 21, 2019 Time Seen by Provider: 16:29 Initial Comments To ER with pain to the palm of the right hand that began 2 days ago without any known injury. Onset: other Severity: moderate Pain/Injury Location: right hand Method of Injury: unknown Modifying Factors: Worse With Movement Allergies and Home Medications Allergies Coded Allergies: Penicillins (Verified Allergy, Mild, RASH, 06/12/18) metoclopramide (Verified Allergy, Mild, RED RASH/GI UPSET, 06/12/18) Home Medications Albuterol Sulfate 1 Puff Puff, 2 PUFF IH Q6H PRN for SHORTNESS OF BREATH, (Reported) Cefuroxime Axetil 500 Mg Tablet, 500 MG PO BID Prescribed by: LISS BAGLEY on 04/13/192210 Cephalexin 500 Mg Capsule, 500 MG PO BID Prescribed by: ELKE PRICE on 03/22/192056 Cetirizine HCl 10 Mg Capsule, 10 MG PO DAILY, (Reported) Guaifenesin 1,200 Mg Tab.er.12h, 1,200 MG PO DAILY, (Reported) Hydrocodone Bit/Acetaminophen 1 Tab Tab, 1 TAB PO Q6H PRN for PAIN-MODERATE Prescribed by: VALERIA CONTRERAS on 06/17/18 1312 Hyoscyamine Sulfate 0.125 Mg Tab.subl, 1-2 TAB SL Q4H Prescribed by: NOEL CHIN on 04/06/1954 Insulin Glargine,Hum.rec.anlog 100 Unit/1 Ml Insuln.pen, 50 UNITS SC HS, (Reported) Metformin HCl 1,000 Mg Tablet, 1,000 MG PO BID, (Reported) Nitrofurantoin Monohyd/M-Cryst 100 Mg Capsule, 100 MG PO BID Prescribed by: NOEL CHIN on 10/04/182342 Ondansetron 4 Mg Tab.rapdis, 4 MG PO Q4H Prescribed by: NOEL CHIN on 04/06/1954 Ondansetron HCl 4 Mg Tab, 4 MG PO Q4H Prescribed by: AIDEE SOUZA on 05/26/182202 Pantoprazole Sodium 40 Mg Tablet.dr, 40 MG PO DAILY Prescribed by: NOEL CHIN on 10/04/18 2343 Polyethylene Glycol 3350 17 Gm Powd.pack, 17 GM PO DAILY Prescribed by: NOEL CHIN on 04/06/19 0056 Sucralfate 1 Gm/10 Ml Oral.susp, 1 GM PO QID Prescribed by: NOEL CHIN on 10/04/18 2343 Patient Home Medication List Home Medication List Reviewed: Yes Review of Systems Constitutional: see HPI EENTM: see HPI Respiratory: no symptoms reported Cardiovascular: no symptoms reported Genitourinary: no symptoms reported Musculoskeletal: see HPI Skin: no symptoms reported Psychiatric/Neurological: No Symptoms Reported Past Dbmprdq-Guvdbx-Webxhx Hx Patient Social History 2nd Hand Smoke Exposure: Yes Recent Foreign Travel: No Contact w/Someone Who Travel: No Recent Hopitalizations: No Immunizations Up To Date Tetanus Booster (TDap): Unknown PED Vaccines UTD: No Date of Pneumonia Vaccine: Dec 12, 2009 Date of Influenza Vaccine: Jan 09, 2019 Seasonal Allergies Seasonal Allergies: Yes Past Medical History Surgeries: Yes (HIATAL HERNIA REPAIR 2016; HARLEY 06/2018; BILAT KNEE SCOPES; EYE SURGERY ) Abdominal, Eye Surgery, Gallbladder, Orthopedic Respiratory: Yes Asthma Currently Using CPAP: No Currently Using BIPAP: No Cardiac: Yes High Cholesterol Neurological: No Reproductive Disorders: Yes Female Reproductive Disorders: Menstrual Problems Sexually Transmitted Disease: No HIV/AIDS: No Genitourinary: Yes Bladder Infection, UTI-Chronic Gastrointestinal: Yes (ESOPHAGEAL NARROWING; HIATAL HERNIA REPAIR 2016; CHOLECYSTECTOMY 06/2018) Gastroesophageal Reflux, Hiatal Hernia, Ulcer, Gall Bladder Disease Musculoskeletal: Yes Arthritis Endocrine: Yes Diabetes, Insulin dep HEENT: Yes (GLASSES; EYE SURGERY INFANT; DENTAL DECAY) Loss of Vision: Bilateral Hearing Impairment: Denies Cancer: No Psychosocial: No Integumentary: No Blood Disorders: No Adverse Reaction/Blood Tranf: No (N/A) Family Medical History Arthritis 19 FATHER 19 MOTHER G8 SISTER Asthma 19 FATHER 19 MOTHER G8 SISTER Cataracts 19 MOTHER Diabetes mellitus 19 FATHER 19 MOTHER G8 SISTER FH: leukemia 19 FATHER Myocardial infarction 19 MOTHER Parkinson's disease 19 FATHER Thyroid disease 19 MOTHER Asthma, CAD Over 55 Years Old, Diabetes PSH: -EYE SURGERY INFANT -BILATERAL KNEE SCOPES -HIATAL HERNIA REPAIR 07/2016 -LAP HARLEY 06/2018 -LAST COLONOSCOPY 01/08/19 Physical Exam Vital Signs Capillary Refill : Height, Weight, BMI Height: 5'3.00" Weight: 178lbs. 0.0oz. 80.521115gq; 31.00 BMI Method:Stated General Appearance: WD/WN, no apparent distress HEENT: PERRL/EOMI, normal ENT inspection Neck: non-tender, full range of motion Respiratory: no respiratory distress, no accessory muscle use Shoulder: normal inspection, non-tender Elbow/Forearm: normal inspection, non-tender Wrist: Yes normal inspection, Yes non-tender Hand: Right (tender to palpation with some questionable mild swelling of the thenar eminence of the right hand without erythema or ecchymosis. Distal capillary refill is brisk and sensation intact.) Neurologic/Psychiatric: alert, normal mood/affect, oriented x 3 Skin: normal color, warm/dry Departure Impression Primary Impression: Hand pain, right Disposition: 01 HOME, SELF-CARE Condition: Stable Departure-Patient Inst. Decision time for Depature: 16:31 Referrals: RIAZ REAL DO (PCP) Primary Care Physician CHERRY MARTIN (Family) Primary Care Physician Add. Discharge Instructions: 1. Wear the thumb spica as directed 2. call your doctor this week for recheck All discharge instructions reviewed with patient and/or family. Voiced understanding. LISS BAGLEY IMPORT EXPORT CLERK Jun 21, 2019 16:32
== END 2019-06-21 16:37 | disposition home or self-care (01) ==
LOC: EDUNIT# 16:19 → ER 16:20
DX: M79.641 Pain in right hand (principal); J45.909 Unspecified asthma, uncomplicated; E11.9 Type 2 diabetes mellitus without complications; K21.9 Gastro-esophageal reflux disease without esophagitis; Z88.0 Allergy status to penicillin; Z88.8 Allergy status to other drugs, medicaments and biological substances; Z79.4 Long term (current) use of insulin; Z77.22 Contact with and (suspected) exposure to environmental tobacco smoke (acute) (chronic); Z82.49 Family history of ischemic heart disease and other diseases of the circulatory system; Z80.6 Family history of leukemia
CPT/HCPCS: 99282

== ENCOUNTER 2019-07-31 21:06 | Emergency (ER) | payer OTHER ==
[~2019-07-31] VITALS: Ht 160 cm; Wt 83.9 kg
[2019-07-31 21:15] VITALS: BP 166/96
--- OUTSIDE RECORDS SUMMARY | 2019-07-31 21:17 | XMS REPORT | Encounter Summary ---
Author Author [facility] Organization [facility] Address Unknown Phone Unavailable Care Team Providers Care Philosophy Lecturer Name Role Phone Kirt Mi [employer] PCP Reason for Visit * Auth/Cert Referred By Contact Referred To Contact Status Reason Specialty Diagnoses / Procedures Diagnoses Malfunction of anal sphincter Constipation, unspecified constipation type Diarrhea, unspecified type Malfunction of anal sphincter [R19.8] Constipation, unspecified constipation type [K59.00] Diarrhea, unspecified type [R19.7] P rocedures MO ANORECTAL MANOMETRY ANORECTAL MANOMETRY Encounter Details Care Team Description Date Type Department Una Velazquez MD [address] [facility] [address] [place] [address] Malfunction of anal sphincter 03/10/2019 [facility] [address] [place] [address] Social History Date Tobacco Use Types Packs/Day Years Used Never Smoker Smokeless Tobacco: Never Used Drinks/Week oz/Week Comments Alcohol Use Never Alcohol Habits Answer Date Recorded How often do you have a drink containing alcohol? Never 11/03/2018 How many drinks containing alcohol do you have on No t asked a typical day when you are drinking? How often do you have six or more drinks on one Not asked occasion? Sex Assigned at Date Recorded Not on file Industry Job Start Date Occupation Not on file Not on file Not on file Travel End Travel History Travel Start No recent travel history available. documented as of this encounter Medications at Time of Discharge Start Date End Date Medication Sig Dispensed Refills acetaminophen (TYLENOL Take by 0 PO) mouth. cetirizine HCl (ZYRTEC Take by 0 PO) mouth. guaifenesin (MUCINEX PO) Take by 0 mouth. insulin glargine (LANTUS) Inject 50 0 100 unit/mL injection Units under the skin daily. 1 vial contains 10mL 01/08/[address](+) Open capsule 60 capsule 11 (PRILOSEC) 40 mg capsule and sprinkle on applesauce. Take once in the morning before breakfast and once in the evening before last meal of day. 11/03/2018 Sodium,Potassium,&Mag Take 354 mL 354 mL 0 Sulfates (SUPREP BOWEL by mouth as PREP KIT) 17.5-3.13-1.6 directed. gram solrIndications: Take as bowel evacuation directed by GI office. Indications: emptying of the bowel spacer inhalation device by SEE ADMIN 0 (AEROCHAMBER) spcr INSTRUCTIONS route as directed. documented as of this encounter Progress Notes * Una Velazquez MD - 03/10/2019 3:14 PM CUSTOMER SERVICE [employer] alberto Grant order flexible sigmoidoscopy with EMR to r/o hirschsprung disease. thx OMER SERVICE ADVOCATE * Leonora Ridley RN - 03/10/2019 2:21 PM C[employer]OMER SERVICE ADVOC[employer] [facility] Anorectal Manometry 03/10/2019 Raven Bell Attending Physician:Marcus Chief Complaint: Constipation, Rectal Pain, Diarrhea, Incontinence, or Other: co nstipation; diarrhea Medical History: Medical History: Diagnosis Date Arthritis Asthma Back pain Gastric reflux Scoliosis Stomach problems Type II diabetes mellitus (HCC) Surgical History: Surgical History: Procedure Laterality Date Colonoscopy N/A 01/06/2019 Performed by Una Velazquez MD at ENDO/GI EGD with George N/A 01/06/2019 Performed by Una Velazquez MD at ENDO/GI ESOPHAGOGASTRODUODENOSCOPY WITH BIOPSY - FLEXIBLE N/A 01/06/2019 Performed by Una Velazquez MD at ENDO/GI ESOPHAGOGASTRODUODENOSCOPY WITH DILATION ESOPHAGUS WITH BALLOON 30 MM OR GRE ATER - FLEXIBLE N/A 01/06/2019 Performed by Una Velazquez MD at ENDO/GI ESOPHAGEAL MOTILITY STUDY N/A 01/06/2019 Performed by Una Velazquez MD at ENDO/GI EYE SURGERY GALLBLADDER SURGERY HERNIA REPAIR KNEE SURGERY Medications: No current facility-administered medications for this encounter. Symptoms Assessment Frequency: ContinuousNo,EpisodicNo IntermittentYes Onset (Years): 2.5 years Stool Consistency Watery, Formed, Semi-Formed, Mucous, Blood: Watery; formed; s ome blood; mucous Amount Large, Medium, Small, Varies: varies Incomplete Evacuation: Yes Focused Assessment Hemorrhoid Surgery No Anal / Rectal trauma No Physical / Sexual Abuse No Trauma No Stroke No Heart Disease No Recent Weight Loss No Scleroderma No Myasthenia Gravis No Raynaud's Disease No Bladder Control Problems Yes Urgency Yes Diabetes Yes Cancer No Radiation No Chemotherapy No Number of Childbirths: Method of Delivery / Vaginal: Repair? Episiotomy / Vaginal Tear: [employer]ATE documented in this encounter Plan of Treatment Not on filedocumented as of this encounter Procedures Comments Procedure Name Priority Date/Time Associated Diag nosis ANORECTAL MANOMETRY 03/10/2019 Malfunction of an al 2:38 PM CUSTOMER SERVICE AD[employer]ATE sphincter Constipation, unspecified constipation type Diarrhea, unspecified type ANORECTAL MANOMETRY-SCAN 03/10/2019 12:00 AM CUSTOMER SERVICE ADV[employer]ATE ANORECTAL MANOMETRY-SCAN 03/10/2019 12:00 AM CUSTOMER SERVICE ADVOCATE documented in this encounter Results * ANORECTAL MANOMETRY-SCAN (03/10/2019 12:00 AM CUSTOMER SERVICE ADVOCATE) Narrative Performed At This result has an attachment that is n ot available. Ordered by an unspecified provider. * ANORECTAL MANOMETRY-SCAN (03/10/2019 12:00 AM CUSTOMER SERVICE ADVOCATE) Narrative Performed At This result has an attachment that is n ot available. Ordered by an unspecified provider. documented in this encounter Visit Diagnoses Not on filedocumented in this encounter
--- OUTSIDE RECORDS SUMMARY | 2019-07-31 21:17 | XMS REPORT | Encounter Summary ---
Author Author [facility] Organization [facility] Address Unknown Phone Unavailable Care Team Providers Care Wet Primer Powder Blender Name Role Phone Shmuel Kirt Talha TAMPER OPERATOR PCP Reason for Visit * Reason Comments Results ARM Encounter Details Care Team Description Date Type Department Una Velazquez MD [address] [facility] Ortho/Med [place] [address] [place] [address] Results (ARM) 03/19/2019 Telephone [facility] [address] [place] [address] Social History Date Tobacco Use Types Packs/Day [...] history available. documented as of this encounter Miscellaneous Notes * Telephone Encounter - Juanita Johnson RN - 03/31/2019 10:48 AM MATH AND SCIENCE DIVISION CHAIR Order placed. [employer] message sent to pt along w/ prep instructions. Contacted p t on information below. Also directed pt to look on [employer]. Pt verbalized under standing. Pt had no further questions or concerns. AND SCIENCE DIVISION CHAIR * Telephone Encounter - Juanita Johnson RN - 03/31/2019 10:39 AM MATH AND SCIENCE DIVISION CHAIR Progress Notes by Una Velazquez MD at 03/10/19 1514 Author: Una Velazquez MD Service: Gastroenterology Author Type: Physician Filed: 03/21/19 1124 Creation Time: 03/21/191122 Note Type: Progress Notes Status: Signed Car Electronics Installer: Una Velazquez MD (Physician) alberto Grant order flexible sigmoidoscopy with EMR to r/o hirschsprung disease. thx AND SCIENCE DIVISION CHAIR * Telephone Encounter - Una Velazquez MD - 03/19/2019 3:09 PM MATH AND SCIENCE DIVISION CHAIR Yes, flexible sigmoidoscopy with EMR (r/O hirschsprung disease). AND SCIENCE DIVISION CHAIR * Telephone Encounter - Juanita Johnson RN - 03/19/2019 1:43 PM MATH AND SCIENCE DIVISION CHAIR Pt called and request ARM results from 03/10/19: Reviewed results above w/ pt. Pt verbalized understanding. Had no further quest ions or concerns Routing to Dr. Velazquez to advise if ok to place Suction Biopsy EMR. AND SCIENCE DIVISION CHAIR documented in this encounter Plan of Treatment Not on filedocumented as of this encounter Visit Diagnoses Not on filedocumented in this encounter
--- OUTSIDE RECORDS SUMMARY | 2019-07-31 21:17 | XMS REPORT | Encounter Summary ---
Author Author [facility] Organization [facility] Address Unknown Phone Unavailable Care Team Providers Care Bmx Rider Name Role Phone Kirt Mi LUMBER SALES SUPERVISOR PCP Encounter Details Care Team Description Date Type Department Una Velazquez MD [address] [facility] Ortho/Med Pavilion [address] [place] [address] [phone] 06/22/2019 Prep for Case [facility] [address] [place] [phone] Social History Date Tobacco Use Types Packs/Day [...] history available. documented as of this encounter Plan of Treatment Not on filedocumented as of this encounter Visit Diagnoses Not on filedocumented in this encounter
--- OUTSIDE RECORDS SUMMARY | 2019-07-31 21:17 | XMS REPORT | Clinical Summary ---
Author Author [facility] Organization [facility] Address Unknown Phone Unavailable Care Team Providers Care Mail Service Coordinator Name Role Phone Kirt Mi SUPERVISOR KOSHER DIETARY SERVICE PCP Source Comments Some departments are not documenting in the electronic medical record. If you d o not see the information that you expected, contact Release of Information in [facility] [email or web address] Information Management department at [phone] for further assistan ce in locating additional records.[facility] Allergies Comments Active Allergy Reactions Severity Noted Date Penicillin G RASH Medium 11/03/2018 Metoclopramide ANAPHYLAXIS High 01/06/2019 Medications End Date Status Medication Sig Dispensed Refills Start Date Active insulin glargine (LANTUS) Inject 50 0 100 unit/mL injection Units under the skin daily. 1 vial contains 10mL Active guaifenesin (MUCINEX PO) Take by 0 mouth. Active cetirizine HCl (ZYRTEC Take by 0 PO) mouth. Active acetaminophen (TYLENOL Take by 0 PO) mouth. Active spacer inhalation device by SEE ADMIN 0 (AEROCHAMBER) spcr INSTRUCTIONS route as directed. Active Sodium,Potassium,&Mag Take 354 mL 354 mL 0 10/10 Sulfates (SUPREP BOWEL by mouth as 9 PREP KIT) 17.5-3.13-1.6 directed. gram solrIndications: Take as bowel evacuation directed by GI office. Indications: emptying of the bowel Active omeprazole DR(+) Open capsule 60 capsule 11 01/09/20 1 (PRILOSEC) 40 mg capsule and sprinkle 9 on applesauce. Take once in the morning before breakfast and once in the evening before last meal of day. Active peg-electrolyte solution Mix as 4000 mL 0 0 1/30/202 (NULYTELY) 420 gram oral directed on 0 solution package. Keep cold. Drink slowly over 24 hrs. May eat and drink liquids as normally. 07/15/2019 linaclotide (LINZESS) 145 Take one 30 capsule 3 mcg capsule capsule by 0 mouth daily 30 minutes before breakfast for 30 days. 07/15/2019 bisacodyL (BISCOLAX) 10 Insert or 30 3 mg rectal suppository Apply one suppository 0 suppository to rectal area as directed daily as needed for up to 30 days. Active Problems No known active problems Encounters Care Team Description Date Type Specialty Una Velazquez MD 06/22/2019 Prep for Case Gastroenterology Una Velazquez MD Reflux esophagitis (Primary Dx); Pelvic floor dysfunction; Abnormal defecation; Burping; Belching; Abdominal pain, unspecified abdominal location 06/15/2019 Office Visit GastroenterUna Ramos MD ERRONEOUS ENCOUNTER--DISREGARD (Primary Dx) 06/10/2019 Office Visit Gastroenterology Una Velazquez MD Care Coordination (Telehealth) 06/08/2019 Telephone Gastroenterology Una Velazquez MD Appointment (Procedure cancel request) 05/25/2019 Telephone Gastroenterology from Last 3 Months Family History Medical History Relation Name Comments None Reported Brother None Reported Daughter Cancer Father None Reported Maternal Grandfather None Reported Maternal Grandmother None Reported Mother None Reported Other None Reported Paternal Grandfather None Reported Paternal Grandmother None Reported Sister None Reported Son Relation Name Status Comments Brother Daughter Father Maternal Grandfather Maternal Grandmother Mother Alive Other Paternal Grandfather Paternal Grandmother Sister Son Social History Date Tobacco Use Types Packs/Day [...] Travel Start No recent travel history available. Last Filed Vital Signs Reading Time Taken Comments Vital Sign 121/77 01/06/2019 5:25 PM CDT Blood Pressure 92 01/06/2019 5:25 PM CDT Pulse 36.5 C (97.7 F) 01/06/2019 5:00 PM CDT Temperature 16 11/03/2018 8:46 AM CDT Respiratory Rate 100% 01/06/2019 5:25 PM CDT Oxygen Saturation - - Inhaled Oxygen Concentration 83 kg (183 lb) 06/15/2019 11:16 AM CDT Weight 160 cm (5' 2.99") 06/15/2019 11:16 AM CDT Height 32.43 06/15/2019 11:16 AM CDT Body Mass Index Plan of Treatment Health Maintenance Due Date Last Done Comments HIV SCREENING 1986 DTAP/TDAP VACCINES ( - 1989 Tdap) HEPATITIS C SCREENING 1989 PHYSICAL (COMPREHENSIVE) 1989 EXAM CERVICAL CANCER SCREENING 1992 BREAST CANCER SCREENING 2011 INFLUENZA VACCINE 12/10/2019 12/31/2018 Results Not on filefrom Last 3 Months Insurance Type Payer Benefit Subscriber ID Effective Phone Address Plan / Dates Group AETNA AETNA xxxxxxxxxx 2017-P CHOICE POS resent II (Work) Advance Directives Patient Cardiac Technologist Explanation Type Date Recorded Advance Directive/DPOA
--- OUTSIDE RECORDS SUMMARY | 2019-07-31 21:17 | XMS REPORT | Encounter Summary ---
Author Author [facility] Organization [facility] Address Unknown Phone Unavailable Care Team Providers Care Product Marketing Coordinator Name Role Phone Kirt Mi ASSISTANT LOAN PROCESSOR PCP Reason for Visit * Reason Comments Appointment Procedure cancel request Encounter Details Care Team Description Date Type Department Una Velazquez MD [address] [facility] Ortho/Med Pavilion [address] [place] [address] Appointment (Procedure cancel request) 05/25/2019 Telephone [facility] [address] [place] [address] Social History Date Tobacco Use [...] encounter Miscellaneous Notes * Telephone Encounter - Jocelynn Flores RN - 05/25/2019 12:17 PM CDT Incoming call that pt would like to reschedule procedure as she works in a [employer] home and has concerns about exposure to Covid 19. Called back and spoke with pt. She has tried calling to cancel but only getting busy signal. Will fax a schedule change form to GI lab and pt will call to lizzeth rodney at her convenience. Fax sent documented in this encounter Plan of Treatment Not on filedocumented as of this encounter Visit Diagnoses Not on filedocumented in this encounter
--- OUTSIDE RECORDS SUMMARY | 2019-07-31 21:17 | XMS REPORT | Encounter Summary ---
Author Author [facility] Organization [facility] Address Unknown Phone Unavailable Care Team Providers Care Truss Assembler Name Role Phone Kirt Mi BUFFING TURNER AND COUNTER PCP Reason for Visit * Reason Comments Pre-Procedure Instructions Encounter Details Care Team Description Date Type Department Zabrina Adams RN Pre-Procedure Instructions 03/03/2019 Telephone [address] [address] Social History Date Tobacco Use Types Packs/Day [...] encounter Miscellaneous Notes * Telephone Encounter - Zabrina Adams RN - 03/03/2019 8:50 AM SENIOR CLINICAL SAS PROGRAMMER Pre call completed to patient for their ARM scheduled on 03/10/19 at 1500. Pt in structed to do enema prior to procedure. Patient states understanding. OR CLINICAL SAS PROGRAMMER documented in this encounter Plan of Treatment Not on filedocumented as of this encounter Visit Diagnoses Not on filedocumented in this encounter
--- OUTSIDE RECORDS SUMMARY | 2019-07-31 21:17 | XMS REPORT | Encounter Summary ---
Author Author [facility] Organization [facility] Address Unknown Phone Unavailable Care Team Providers Care Crab Fisherman Name Role Phone Shmuel Kirt Talha GARMENT TAG STRINGER PCP Reason for Visit * Reason Comments Care Coordination Telehealth Encounter Details Care Team Description Date Type Department Una Velazquez MD [address] [facility] Ortho/Med Pavilion [address]vl [address] [place] [address] Care Coordination (Telehealth) 06/08/2019 Telephone [facility] [address] [place] [address] Social History Date Tobacco Use [...] Telephone Encounter - Juanita Johnson RN - 06/08/2019 3:08 PM CDT Called pt. Pt agrees to telehealth appt on June 14 at 1200. Will be at work on 06/09. Informed pt there will be a [employer] message with appt link and instruction s. Pt verbalized understanding. Had no further questions or concerns. Message s ent to scheduling to arrange appt. * Telephone Encounter - Juanita Johnson RN - 06/08/2019 9:18 AM CDT Attempted to call pt. LVM to stating OV on 06/10/19 is cancelled due to Covid-19 p andemic precautions. We can schedule telehealth OV via Zoom. Left GI nurse line for pt to call back to let us know if she would like to pursue telehealth. Brendenha rt message sent. documented in this encounter Plan of Treatment Not on filedocumented as of this encounter Visit Diagnoses Not on filedocumented in this encounter
--- OUTSIDE RECORDS SUMMARY | 2019-07-31 21:17 | XMS REPORT | Encounter Summary ---
Author Author [facility] Organization [facility] Address Unknown Phone Unavailable Care Team Providers Care Water Resource Engineer Name Role Phone Kirt Mi CABIN MAN PCP Reason for Visit * Reason Comments Abdominal pain Encounter Details Care Team Description Date Type Department Una Velazquez MD [address] Ortho/Med Pavilion [address]vl [address] [place] [address] Abdominal pain 04/06/2019 Telephone [facility] [address] [place] [address] Social History Date Tobacco Use Types Packs/Day [...] as of this encounter Miscellaneous Notes * Addendum Note - Juanita Johnson RN - 04/09/2019 10:52 AM SLEEVE SETTER SAFETY STITCH Addended by: JUANITA JOHNSON on: 04/09/2019 10:52 AM Modules accepted: Orders VE SETTER SAFETY STITCH * Telephone Encounter - Juanita Johnson RN - 04/09/2019 10:46 AM SLEEVE SETTER SAFETY STITCH Order placed. Attempted to call pt. Left detailed VM (authorization on file) inf orming pt of the below info, directions on how to drink bowel cleansing, and dir ections on daily bowel regimen of 25 mg senna and 1 cap of miralax at night whic h is available over the counter. Informed pt to call back if any questions or co ncerns. VE SETTER SAFETY STITCH * Telephone Encounter - Una Velazquez MD - 04/08/2019 9:06 AM SLEEVE SETTER SAFETY STITCH pls bowel cleansing instruction, then daily laxatives, 25 senna and 1 cap of amari alax at night. Thanks VE SETTER SAFETY STITCH * Telephone Encounter - Juanita Johnson RN - 2019 5:26 PM SLEEVE SETTER SAFETY STITCH Records received. Scanned in chart under media tab w/ Scan date 04/07/19. CT abd/pelvis w/o contrast: Abd Xray: Routing to Dr. Velazquez to review and advise on retained stool. VE SETTER SAFETY STITCH * Telephone Encounter - Juanita Johnson RN - 04/06/2019 1:25 PM SLEEVE SETTER SAFETY STITCH Pt called and stated she was seen in ER last night at [facility] in [place], [place] for kidney stones and an "obstruction in colon". Was given medicine for kidney stones and pain. Was recommended to take Gas X for obstruct ion. Had 9 soft BM's yesterday, 4 soft BM's today, no straining. Has abd pain, pain in groin, and abd is hard. Vomited once yesterday, has nausea. Small amount of BRBPR, on toilet paper and stool. Does not take daily laxatives. Calling for recommendations. Relayed above info to Dr. Velazquez. Was informed we need ER records to review prior to recommendations to clarify what was found and preformed. SYBIL message s ent to GI administrative office specialist to request ER records. Attempted to call pt. Left detailed VM (authorization on file) w/ Dr. Velazquez 's statement above. Informed pt to call back if any questions or concerns. VE SETTER SAFETY STITCH documented in this encounter Plan of Treatment Not on filedocumented as of this encounter Visit Diagnoses Not on filedocumented in this encounter
--- OUTSIDE RECORDS SUMMARY | 2019-07-31 21:17 | XMS REPORT | Encounter Summary ---
Author Author [facility] Organization [facility] Address Unknown Phone Unavailable Care Team Providers Care Boat Ride Operator Name Role Phone Kirt Mi SUPERVISOR DOPING PCP Encounter Details Care Team Description Date Type Department Una Velazquez MD [address] Ortho/Med Pavilion [address] [place] [address] [phone] Malfunction of anal sphincter (Primary D x); Difficulty defecating; Abnormal defecation; Anal reflex absent 03/31/2019 Prep for Case The [facility] [address] [place] [address] Social History Date Tobacco Use [...] filedocumented as of this encounter Visit Diagnoses Diagnosis Malfunction of anal sphincter Other symptoms involving digestive syst em Difficulty defecating Unspecified constipation Abnormal defecation Other symptoms involving digestive syst em Anal reflex absent Abnormal reflex documented in this encounter
--- OUTSIDE RECORDS SUMMARY | 2019-07-31 21:17 | XMS REPORT | Encounter Summary ---
Author Author [facility] Organization [facility] Address Unknown Phone Unavailable Care Team Providers Care Charging Operator Name Role Phone Kirt Mi APRN PCP Reason for Visit * Auth/Cert Referred By Contact Referred To Contact Status Reason Specialty Diagnoses / Procedures Diagnoses Malfunction of anal sphincter Constipation, unspecified constipation type Diarrhea, unspecified type Malfunction of anal sphincter [R19.8] Constipation, unspecified constipation type [K59.00] Diarrhea, unspecified type [R19.7] P rocedures MO ANORECTAL MANOMETRY ANORECTAL MANOMETRY Encounter Details Care Team Description Date Type Department Una Velazquez MD [address] Ortho/Med Pavilion [address] [place] [address] ANORECTAL MANOMETRY 03/10/2019 Surgery The [facility] [address] [place], [place] [id number] Social History Date Tobacco Use Types Packs/Day [...] Una Velazquez MD - 03/10/2019 3:14 PM QUALITY ASSURANCE COORDINATOR alberto Grant order flexible sigmoidoscopy with EMR to r/o hirschsprung disease. thx ITY ASSURANCE COORDINATOR * Leonora Ridley RN - 03/10/2019 2:21 PM QUALITY ASSURANCE COORDINATOR [facility] Anorectal Manometry 03/10/2019 [place] [...] / Vaginal: Repair? Episiotomy / Vaginal Tear: ITY ASSURANCE COORDINATOR documented in this encounter Plan of Treatment Not on filedocumented as of this encounter Procedures Comments Procedure Name Priority Date/Time Associated Diag nosis ANORECTAL MANOMETRY 03/10/2019 Malfunction of an al 2:38 PM QUALITY ASSURANCE COORDINATOR sphincter Constipation, unspecified constipation type Diarrhea, unspecified type ANORECTAL MANOMETRY-SCAN 03/10/2019 12:00 AM QUALITY ASSURANCE COORDINATOR ANORECTAL MANOMETRY-SCAN 03/10/2019 12:00 AM QUALITY ASSURANCE COORDINATOR documented in this encounter Results * ANORECTAL MANOMETRY-SCAN (03/10/2019 12:00 AM QUALITY ASSURANCE COORDINATOR) Narrative Performed At This result has an attachment that is n ot available. Ordered by an unspecified provider. * ANORECTAL MANOMETRY-SCAN (03/10/2019 12:00 AM QUALITY ASSURANCE COORDINATOR) Narrative Performed At This result has an attachment that is n ot available. Ordered by an unspecified provider. documented in this encounter Visit Diagnoses Diagnosis Malfunction of anal sphincter Other symptoms involving digestive syst em Constipation, unspecified constipation type Diarrhea, unspecified type documented in this encounter
--- OUTSIDE RECORDS SUMMARY | 2019-07-31 21:17 | XMS REPORT | Encounter Summary ---
Author Author [facility] Organization [facility] Address Unknown Phone Unavailable Care Team Providers Care Metal Sash Setter Name Role Phone Kirt Mi APRN PCP Reason for Visit * Reason Comments Error * (Routine) Referred By Contact Referred To Contact Status Reason Specialty Diagnoses / Procedures Una Velazquez MD [address] Ortho/Med Pav[address] [place] [address] Incomplete Encounter Details Care Team Description Date Type Department Una Velazquez MD [address] Ortho/Med Pavilion [address] [place], [place] [phone] ERRONEOUS ENCOUNTER--DISREGARD (Primary Dx) 06/10/[address] [facility] [address] [place] [address] Social History Date Tobacco Use Types Packs/Day [...] history available. documented as of this encounter Progress Notes * Una Velazquez MD - 06/10/2019 2:00 PM CDT This encounter was created in error. Please disregard. documented in this encounter Plan of Treatment Not on filedocumented as of this encounter Visit Diagnoses Diagnosis ERRONEOUS ENCOUNTER--DISREGARD documented in this encounter
--- OUTSIDE RECORDS SUMMARY | 2019-07-31 21:17 | XMS REPORT | Encounter Summary ---
Author Author [facility] Organization [facility] Address Unknown Phone Unavailable Care Team Providers Care Sales Producer Name Role Phone Kirt Mi LOAD HAUL DUMP OPERATOR PCP Reason for Referral * Consult, Test & Treat (Routine) Referred By Contact Referred To Contact Status Reason Specialty Diagnoses / Procedures Una Velazquez MD [address] [facility] [address] [place] [address] Pretty Ng, PT [address] [place] [address] New Request Specialty Services Rehabilitation Diagnoses Required Pelvic floor dysfunction Abnormal defecation Scheduling Instructions Can be with any Pelvic Floor Biofeedback Therapist. * Radiology Services (Routine) Referred By Contact Referred To Contact Status Reason Specialty Diagnoses / Procedures Una Velazquez MD [address] [facility] [address] [place] [address] New Request Radiology Diagnoses Reflux esophagitis Burping Belching Abdominal pain, unspecified abdominal location P rocedures NM GASTRIC EMPTYING TIME Reason for Visit * Reason Comments Esophageal Reflux Constipation * (Routine) Referred By Contact Referred To Contact Status Reason Specialty Diagnoses / Procedures Una Velazquez MD [address] [facility] [address] [place] [address] Incomplete Encounter Details Care Team Description Date Type Department Una Velazquez MD [address] [facility] [address] [place] [address] [phone] Reflux esophagitis (Primary Dx); Pelvic floor dysfunction; Abnormal defecation; Burping; Belching; Abdominal pain, unspecified abdominal location 06/15/2019 Office Visit [facility] [address] [place] [address] Social History Date Tobacco Use [...] history available. documented as of this encounter Last Filed Vital Signs Reading Time Taken Comments Vital Sign - - Blood Pressure - - Pulse - - Temperature - - Respiratory Rate - - Oxygen Saturation - - Inhaled Oxygen Concentration 83 kg (183 lb) 06/15/2019 11:16 AM CDT Weight 160 cm (5' 2.99") 06/15/2019 11:16 AM CDT Height 32.43 06/15/2019 11:16 AM CDT Body Mass Index documented in this encounter Patient Instructions * Patient Instructions* Juanita Johnson RN - 06/15/2019 12:00 PM CDT A Gastric Emptying Test has been ordered for you, you will schedule this at counts include 234 beds at the [facility] out today. A gastric emptying scan is a test that looks at how fast the food e mpties from your stomach into your intestines or bowel. Please call [facility] at [phone] once Covid 19 precautions are lifted to schedule. Start Linzess 145 mcg daily, and bisacodyl suppository as needed when having inc omplete evacuation. Script was sent to [id number] - [place], [place] - [address] [facility]. A Flexible Sigmoidoscopy has been ordered for you. See separate Mychart message w/ prep instructions. The GI Scheduling department will contact you to arrange t his once Covid-19 Precautions have been lifted. If you have not heard from sched ing or need to reschedule your procedure please call . A referral was placed for Pelvic Biofeedback Therapy. Please call their scheduli ng department at [phone] to set up appointment. They will not call you. If scheduling is too far out, please send us a [employer] message or call [phone] and we can send you a list of area PT's that can provide this service. See below for more information regarding your visit: Pelvic Health Therapy The goal of pelvic health therapy is to maximize your function and quality of li fe related to your pelvic health complications. The 60-minute evaluation will i nclude review of your medical history and current challenges specifically relate d to bowel, bladder, and pelvic pain or dysfunction. A comprehensive musculoskel etal exam including core, hip, and, if indicated, internal pelvic floor muscle a ssessment will be completed as well. Subsequent visits may include exercises, b reathing techniques, nutrition review, and biofeedback. Your individual care clayton n, including frequency and number of visits, will be determined after your asses sment. Please arrive 15 min prior to your appointment to complete paperwork. Phone number: [phone] Directions: Exit [address] at [place], turn to go North. Take the first turn going [address], onto [address] Continue 0.25 miles, and [facility] your left. We are transitioning to new billing practices; if you have any questions about y our bill please call Patient Financial Services phone line: [phone] or [phone], Saturday-Saturday, 8:30a.m. - 4:30 p.m. Please send [employer] message or call REANNA Grant Dr[address]s nurse at [phone] if you have any questions or concerns. General Instructions: To have a medication refilled: Please use the [employer] Refill request or cont act your pharmacy directly to request medication refills. Please allow 72 hours . [facility] Lab is on the 1st floor. It is open from 7 am-6pm -Saturday and 6:30am-7pm on Mondays, and 7 am - Noon on Saturdays [facility] Lab is located on the 2nd floor and is open 8 am-5 pm Saturday-Saturday [facility] lab is located next to the check out desk and is open from 8 A M to 4:45 PM Saturday through Saturday. Radiology is on the 2nd floor of the Medical Office Building and the 2nd Floo r of [facility]. Radiology Scheduling can be reached at To Schedule office visits: Call [phone] select option 1. For procedure scheduling questions at the Main [facility] or [facility] se call ; for a procedure at [facility] please call . To receive appointment reminders on your cell phone: Make sure we have your c The Box phone number, and Text [facility] to [phone]. Support for many chronic illnesses is available through [facility]: [email or web address] or [phone]. For urgent questions on nights, weekends or holidays, call the Transportation Dispatcher at , and ask for the doctor underwriting operations manager for Gastroenterology. Call [phone] for an y emergencies. documented in this encounter Progress Notes * Juanita Johnson RN - 06/15/2019 12:00 PM CDT Confirmed Flex Sig order still active. Added message to call pt once Covid-19 pr ecautions have been lifted. * Una Velazquez MD - 06/15/2019 12:00 PM CDT Telehealth Visit Note Date of Service: 06/15/2019 Subjective: Obtained patient's verbal consent to treat them and their agreement to [facility] policy and NPP via this telehealth visit during the Coronavirus Public [facility] Raven Bell is a 49 y.o. female. History of Present Illness Raven Bell is a delightful 49-year-old female with PMH of dysphag ia, heartburn, nausea and vomiting since hiatal hernia repair in 2017. She is h ere for follow-up, telehealth. HRM and esophagogram with 13 mmm barium tablet were unremarkable. EGD with Endoflip was normal except retrograde esophageal contractions. Anorectal manometry showed pelvic floor dyssynergia, normal anal sphincter press ure at rest, incomplete relaxation during defecation, inadequate propulsive forc e. RAIR was negative. CT in 12/2018: 1. No CT imaging signs of active small bowel inflammation. 2. Some portions of the proximal small bowel is mildly dilated up to 4 cm, thoug h this is probably due to the glucagon and fluid distention associated with the exam. Cecum is located within the right upper quadrant subhepatic space. 3. 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 4. Tiny left adrenal gland myelolipoma 5. Tiny nonobstructing right renal calculus 6. Ill-defined 22 mm hypodense nodule within the uterus on the right. This is in completely characterized by CT, though probably represents a fibroid. Review of Systems Constitutional: Negative. HENT: Negative. Eyes: Negative. Respiratory: Positive for choking. Cardiovascular: Negative. Gastrointestinal: Positive for abdominal distention and abdominal pain. Endocrine: Negative. Genitourinary: Positive for frequency and urgency. Musculoskeletal: Positive for back pain. Skin: Negative. Allergic/Immunologic: Negative. Neurological: Negative. Hematological: Negative. Psychiatric/Behavioral: Positive for sleep disturbance. Objective: acetaminophen (TYLENOL PO) Take by mouth. cetirizine HCl (ZYRTEC PO) Take by mouth. guaifenesin (MUCINEX PO) Take by mouth. insulin glargine (LANTUS) 100 unit/mL injection Inject 50 Units under the sk in daily. 1 vial contains 10mL omeprazole DR(+) (PRILOSEC) 40 mg capsule Open capsule and sprinkle on apple sauce. Take once in the morning before breakfast and once in the evening before last meal of day. peg-electrolyte solution (NULYTELY) 420 gram oral solution Mix as directed o n package. Keep cold. Drink slowly over 24 hrs. May eat and drink liquids as nor bubba. Sodium,Potassium,&Mag Sulfates (SUPREP BOWEL PREP KIT) 17.5-3.13-1.6 gram solr Take 354 mL by mouth as directed. Take as directed by GI office. Indications: emptying of the bowel spacer inhalation device (AEROCHAMBER) spcr by SEE ADMIN INSTRUCTIONS route as directed. Vitals: 06/15/19 1116 Weight: 83 kg (183 lb) Height: 160 cm (62.99") PainSc: Four Body mass index is 32.43 kg/m. Physical Exam Assessment and Plan: 1. Pelvic floor dysysnergia: will refer her for Biofeedbcak therapy 2. Absent RAIR: Needs suction biopsy to rule out Hirschsprung disease 3. LA grade B esophagistis: takes PPI 40 mg helps but she still has heartburn. 4. S/p hiatal hernia surgery in 2017 5. Burping and belching We discussed about EGD which showed moderate reflux esophagitis, Endoflip, high- resolution manometry, and anorectal manometry, in details. She still complains of heartburn despite taking PPI twice daily. EGD showed LA grade B esophagitis. Will check for gastric emptying study to evaluate for lack of response to PPI therapy. We will start laxative therapy. She had poor response to MiraLAX. We will star t Linzess 145 mcg daily, and bisacodyl suppository as needed when having incompl ete evacuation. We will refer her for biofeedback therapy and will rule out Hir schsprung disease (negative RAIR) by suction biopsy (Flexible sigmoidoscopy was canceld due to COVID 19 pandemic, please a scheduled for restriction is lifted). PCP: Kirt Mi MD I explained the diagnosis and management plan in detail. No barrier to education was noted. she understood me well and repeated her understanding. I answered all her questions and concerns. Total time spent with the patient face to face: 30 min. Una Velazquez MD This note was in part completed with [employer], a voice to text dictation system. S ome errors may have occured and persist despite my best efforts to edit this doc ument to eliminate dictation/translationrelated errors.If you have questio ns/concerns, please contact me for clarification Total time 30 minutes. documented in this encounter Miscellaneous Notes * Addendum Note - Juanita Johnson RN - 06/15/2019 12:00 PM CDT Addended by: JUANITA JOHNSON on: 06/22/2019 05:55 PM Modules accepted: Orders documented in this encounter Plan of Treatment Order Schedule Name Type Priority Associated Diag noses Expected: 06/22/2019 (Approximate), Expi res: 06/21/2020 NM GASTRIC EMPTYING TIME Imaging Routine Reflu x esophagitis Burping Belching Abdominal pain, unspecified abdominal location Order Schedule Name Type Priority Associated Diag noses Ordered: 06/22/2019 AMB REFERRAL TO PELVIC Outpatient Routine Pelvic floor dysfunction FLOOR REHAB Referral Abnormal defecation documented as of this encounter Visit Diagnoses Diagnosis Reflux esophagitis Pelvic floor dysfunction Pelvic muscle wasting Abnormal defecation Other symptoms involving digestive syst em Burping Flatulence, eructation, and gas pain Belching Flatulence, eructation, and gas pain Abdominal pain, unspecified abdominal l ocation documented in this encounter
--- OUTSIDE RECORDS SUMMARY | 2019-07-31 21:19 | XMS REPORT ---
Author Author Raven MARTIN Organization [facility] Address [address] [place] [address] Care Team Providers Care [employer] Project Manager Name Role Phone CHERRY MARTIN Unavailable PROBLEMS Type Condition ICD9-CM Code ZMW33-IM Code Onset Dates Condition S tatus SNOMED Code Problem Other chronic pain G89.29 Active 8 4785838 Problem roasterman current use of insulin Z79.4 Active 058431984 Problem Gastroesophageal reflux disease with esophagitis K 21.0 Active 169007723 Problem Ulcer of esophagus without bleeding K22.10 Active 96377293 Problem Type 2 diabetes mellitus without complications E11 .9 Active 676782482 Problem Seasonal allergic rhinitis, unspecified allergic rhinitis trigger J30.2 Active 593278921 Problem Acute seasonal allergic rhinitis, unspecified trigger J30.2 Active 731649377 Problem Abnormal mammogram of left breast R92.8 Active 691526123 Problem GERD (gastroesophageal reflux disease) K21.9 Active 967532912 Problem Other obesity due to excess calories E66.09 Active 896692142 Problem Body mass index (BMI) of 33.0-33.9 in adult Z68.33 Active 101371760 Problem Uncontrolled type 2 diabetes mellitus with hyperglycemia E11.65 Active 037807948 Problem Irritable bowel syndrome with diarrhea K58.0 Active 207406771 Problem Iron deficiency anemia due to chronic blood loss D 50.0 Active 830534180 Problem Esophageal spasm K22.4 Active 796 77708 Problem Gastroesophageal reflux disease, esophagitis pre sence not specified K21.9 Active 870302982 Problem Acute left-sided back pain with sciatica M54.42 Active 490162903 Problem Type 2 diabetes mellitus without complication E11. 9 Active 89348520 Problem Type 2 diabetes mellitus with hyperglycemia E11.65 Active 544251412 Problem Calculus of gallbladder without cholecystitis wi thout obstruction K80.20 Active 496216920 Problem GERD with esophagitis K21.0 Active 326896098 Problem Seasonal allergic rhinitis due to other allergic trigger J30.89 Active 886091128 Problem assisted (current) use of insulin Z79.4 Active 074589643 ALLERGIES No Information ENCOUNTERS Encounter Location Date Diagnosis [place] [address] [address] 27 Apr, 2019 [facility] [place] [address] [address] 08 Apr, 2019 Gastroesophageal reflux dise ase, esophagitis presence not specified K21.9 [place] [address] [address] Mar, Irritable bowel syndrome with diarrhea K 58.0 and Coughing R05 [place] [address] [address] 24 Dec, 2018 Seasonal allergic rhinitis due to other allergic trigger J30.89 ; Type 2 diabetes mellitus without complications E11.9 and roasterman (current) use of insulin Z79.4 [place] [address] [address] Dec, Type 2 diabetes mellitus without complic ation E11.9 [place] [address] [address] Oct, GERD with esophagitis K21.0 [place] [address] [address] Aug, Type 2 diabetes mellitus without complic ation E11.9 [facility] [place] [address] [address] July, Acute pain of right shoulder M25.511 [facility] [place] [address] [address] May, [place] [address] [address] May, [place] [address] [address] May, Calculus of gallbladder without cholecys titis without obstruction K80.20 ; Uncontrolled type 2 diabetes mellitus with hyperglycemia E11.65 and Breast mass, left N63.20 [place] [address] [address] May, Uncontrolled type 2 diabetes mellitus wi th hyperglycemia E11.65 ; Breast mass, left N63.20 and Calculus of gallbladder without cholecystitis without obstruction K80.20 [place] [address] [address] Apr, Type 2 diabetes mellitus without complic ations E11.9 and Bronchitis J40 [facility] [address] [facility] [id number] [place] [address] Apr, Viral upper respiratory trac t infection J06.9 [place] [address] [address] Mar, [place] [address] [address] Oct, [place] [address] [address] Oct, Type 2 diabetes mellitus with hyperglyce katie E11.65 [place] [address] [address] Sep, Acute pain of left knee M25.562 [facility] [address] [place] [id number] [place] [address] Sep, Right anterior knee pain M25 .561 [place] [address] [address] Sep, Abnormal mammogram of left breast R92.8 [place] [address] [address] Sep, Abnormal mammogram of left breast R92.8 [place] [address] [address] Aug, [place] [address] [address] Aug, Abnormal mammogram of left breast R92.8 [place] [address] [address] Aug, [address] [address] Aug, Encounter for well woman exam with jocelyne bliss gynecological exam Z01.419 ; Screen for STD (sexually transmitted disease) Z11.3 ; Screening breast examination Z12.31 ; Other obesity due to excess calories E66.09 and Body mass index (BMI) of 33.0-33.9 in adult Z68.[address] [address] 14 Jul, 2017 Type 2 diabetes mellitus with hyperglyce katie E11.65 and Iron deficiency anemia due to chronic blood loss D50.[address] [address] 16 Jun, 2017 Acute left-sided back pain with sciatica M54.42 ; Type 2 diabetes mellitus without complications E11.9 and roasterman current use of insulin Z79.4 [facility] [address] [place] [address] 09 Jun, 2017 Dysuria R30.0 and Lumbar luzmaria k pain M54.5 [facility] [address] [address] Feb, Acute seasonal allergic rhin itis, unspecified trigger J30.[address] [address] Feb, Acute posthemorrhagic anemia D62 [address] [address] Feb, Acute posthemorrhagic anemia D62 [address] [address] Feb, Type 2 diabetes mellitus without complic ation E11.9 and Dry skin L85.[address] [address] Dec, [facility] [address] [place] [id number] [place] [address] 18 Nov, 2016 Weakness R53.1 and GERD (gas troesophageal reflux disease) K21.9 [place] [address] [address] 18 Nov, 2016 [place] [address] [address] Sep, Type 2 diabetes mellitus without complic ations E11.9 [facility] [place] [address] [address] July, Dysuria R30.0 and Acute cyst itis with hematuria N30.01 [facility] [address] [address] Jun, Seasonal allergic rhinitis, unspecified allergic rhinitis trigger J30.2 [place] [address] [address] Jun, Hiatal hernia K44.9 and Ulcer of esophag us without bleeding K22.10 [place] [address] [address] 07 Jun, 2016 Gastroesophageal reflux disease with eso phagitis K21.0 [facility] [address] [place] [id number] [place] [id number] Jun, [place] [address] [address] May, Type 2 diabetes mellitus with hyperglyce katie E11.65 and roasterman current use of insulin Z79.4 [place] [address] [address] May, Other chronic pain G89.29 and Pain in le ft hip M25.552 [place] [address] [address] 13 Apr, 2016 Nausea R11.0 [place] [address] [address] 09 Apr, 2016 SOB (shortness of breath) R06.02 ; Cough ing R05 and Type 2 diabetes mellitus without complication E11.9 [facility] [address] [address] Apr, Bronchitis J40 [facility] [address] [address] Mar, Hiatal hernia K44.9 and Bronchitis J40 [facility] [address] [address] Mar, [place] [address] [address] Mar, [place] [address] [address] Jan, [place] [address] [address] Dec, [place] [address] [address] Dec, Esophageal spasm K22.4 [place] [address] [address] Dec, [facility] [place] [address] [address] Dec, Right upper quadrant pain R1 0.11 and Abdominal pain, unspecified location R10.9 [facility] [address] [address] Dec, Right upper quadrant pain R1 0.11 [place] [address] [address] Nov, Type 2 diabetes mellitus without complic ation E11.9 and Right upper quadrant pain R10.11 [facility] [place] [address] [address] Nov, Dysuria R30.0 and Abdominal pain, unspecified location R10.9 [place] [address] [address] 24 Aug, 2015 Chronic gastritis without bleeding, unsp ecified gastritis type K29.50 ; Dysuria R30.0 and Type 2 diabetes mellitus without complication E11.9 [place] [address] [address] 10 Aug, 2015 Gastroesophageal reflux disease, esophag itis presence not specified K21.9 and Acute cystitis with hematuria N30.01 [facility] [address] [place] [address] 07 Aug, 2015 Dysuria R30.0 [place] [address] [address] July, [place] [address] [address] Jun, [place] [address] [address] May, Diabetes type 2, controlled E11.9 and Al lergic rhinitis J30.9 [place] [address] [address] Apr, Type 2 diabetes mellitus without complic ation E11.9 and Cough R05 [place] [address] [address] 02 Apr, 2015 Vertigo R42 and Non-intractable vomiting with nausea, vomiting of unspecified type R11.2 [facility] [address] [place] [address] Mar, Acute laryngopharyngitis J06 .0 ; Acute diarrhea R19.7 and Acute bacterial sinusitis J01.90 [place] [address] [address] Mar, Upper respiratory infection 465.9 [place] [address] [address] 14 Dec, 2014 Diabetes E11.9 [place] [address] [address] Nov, Upper respiratory infection 465.9 [facility] [address] [place] [id number] [place] [address] Sep, [facility] [address] [address] Sep, Diabetes 250.00 [facility] [address] [address] July, Diabetes mellitus without mention of com plication, type II or unspecified type, uncontrolled 250.02 and Cervicalgia 723.1 [facility] [address] [address] July, [facility] [address] [address] Jun, [facility] [address] [address] Jun, [facility] [address] [address] May, [facility] [address] [place] [id number] [place] [address] May, [facility] [address] [address] Apr, [facility] [address] [address] Apr, [facility] [address] [address] Apr, [facility] [address] [place] [id number] [place] [address] Apr, [facility] [address] [address] Mar, [facility] [address] [address] Mar, [facility] [address] [address] Feb, [facility] [address] [id number] [place] [address] 15 Feb, 2014 [facility] [address] [id number] [place] [address] Jan, [facility] [address] [id number] [place] [address] Jan, [facility] [address] [id number] [place] [address] Aug, [facility] [address] [id number] [place] [address] Aug, [facility] [address] [id number] [place] [address] July, [facility] [address] [id number] [place] [address] July, [facility] [address] [id number] [place] [address] Nov, [facility] [address] [id number] [place] [address] Nov, [facility] [address] [id number] [place] [address] Nov, [facility] [address] [id number] [place] [address] Sep, [facility] [address] [id number] [place] [address] Aug, [facility] [address] [id number] [place] [address] July, [facility] [address] [id number] [place] [address] Jun, [facility] [address] [id number] [place] [address] Jun, [facility] [address] [id number] [place] [address] Jun, [facility] [address] [id number] [place] [address] Jun, [facility] [address] [id number] [place] [address] May, [facility] [address] [id number] [place] [address] May, [facility] [address] [id number] [place] [address] Jan, [facility] [address] [id number] [place] [address] Jan, [facility] [address] [id number] [place] [address] Dec, [facility] [address] [id number] [place] [address] Dec, [facility] [address] [id number] [place] [address] Dec, [facility] [address] [id number] [place] [address] Dec, [facility] [address] [id number] [place] [address] Dec, [facility] [address] [id number] [place] [address] Dec, [facility] [address] [id number] [place] [address] Dec, [facility] [address] [id number] [place] [address] Aug, [facility] [id number] [place] [id number] Apr, [facility] [address] [id number] [place] [address] Apr, [facility] [address] [id number] [place] [address] Apr, [facility] [address] [id number] [place] [address] Apr, [facility] [address] [id number] [place] [address] Apr, [facility] [address] [place] [id number] [place] [address] Dec, [facility] [address] [place] [id number] [place] [address] 14 Dec, 2010 [facility] [address] [place] [id number] [place] [address] Dec, [facility] [address] [place] [id number] [place] [address] Dec, [facility] [address] [place] [id number] [place] [address] Feb, [facility] [address] [place] [id number] [place] [address] Feb, [facility] [address] [place] [id number] [place] [address] Feb, [facility] [address] [place] [id number] [place] [address] Feb, [facility] [address] [place] [id number] [place] [address] 14 Aug, 2009 [facility] [address] [place] [id number] [place] [address] May, IMMUNIZATIONS No Known Immunizations SOCIAL HISTORY Never Assessed REASON FOR VISIT PLAN OF CARE VITAL SIGNS Height 63 in 2013-07-24 Weight 188 lbs 2013-07-24 Temperature 97.6 degrees Fahrenheit 2013-07-24 Heart Rate 80 bpm 2013-07-24 Respiratory Rate 18 2013-07-24 Blood pressure systolic 148 mmHg 2013-07-24 Blood pressure diastolic 72 mmHg 2013-07-24 MEDICATIONS Unknown Medications RESULTS No Results PROCEDURES Procedure Date Ordered Result Body Site GLYCATED HEMOGLOBIN TEST July 24, 2013 INSTRUCTIONS MEDICATIONS ADMINISTERED No Known Medications MEDICAL (GENERAL) HISTORY Type Description Date Medical History type II diabetes Medical History allergies Medical History asthma Medical History hyperlipidemia Medical History hiatal hernia Surgical History tear duct surgery as an infant Surgical History Left knee surgery 10/2012 Surgical History hital hernia repair 07/25/16 Surgical History breast biopsy 09/23/2017 Surgical History Right knee meniscus repair 02/11/18 Surgical History Gallbladder Hospitalization History surgery Hospitalization History ER for a UTI 11/27/15 Hospitalization History Upper abdominal pain, [facility] 06/08 Hospitalization History [facility] ER, Gallbladder attack 05/26/2018
--- OUTSIDE RECORDS SUMMARY | 2019-07-31 21:19 | XMS REPORT ---
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 Active 186854800 Problem Gastroesophageal reflux disease with esophagitis K 21.0 Active 984395117 Problem Ulcer of esophagus without bleeding K22.10 Active 04185357 Problem Type 2 diabetes mellitus without complications E11 .9 Active 506709245 Problem Seasonal allergic rhinitis, unspecified allergic rhinitis trigger J30.2 Active 294483873 Problem Acute left-sided back pain with sciatica M54.42 Active 855684536 Problem Iron deficiency anemia due to chronic blood loss D 50.0 Active 462201305 Problem Other obesity due to excess calories E66.09 Active 026820141 Problem Seasonal allergic rhinitis due to other allergic trigger J30.89 Active 481950404 Problem Acute seasonal allergic rhinitis, unspecified trigger J30.2 Active 601194467 Problem Abnormal mammogram of left breast R92.8 Active 350682839 Problem 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 (current) use of insulin Z79.4 Active 783263347 Problem GERD (gastroesophageal reflux disease) K21.9 Active 166399982 Problem Type 2 diabetes mellitus without complication E11. 9 Active 75358839 Problem Body mass index (BMI) of 33.0-33.9 in adult Z68.33 Active 701568375 Problem Uncontrolled type 2 diabetes mellitus with hyperglycemia E11.65 Active 023177341 Problem Calculus of gallbladder without cholecystitis wi thout obstruction K80.20 Active 749851590 Problem GERD with esophagitis K21.0 Active 654530917 ALLERGIES Substance Reaction Event Type Date Status Reglan dizziness Drug Allergy May, Active Penicillin V Potassium Unknown Drug Allergy May, Activ e ENCOUNTERS Encounter Location Date Diagnosis [place] [address] [address] Dec, Seasonal allergic rhinitis due to other allergic trigger J30.89 ; Type 2 diabetes mellitus without complications E11.9 and 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 (current) use of insulin Z79.4 [place] [address] [address] 08 Dec, 2018 Type 2 diabetes mellitus without complic ation E11.9 [place] [address] [address] Oct, GERD with esophagitis K21.0 [place] [address] [address] 12 Aug, 2018 Type 2 diabetes mellitus without complic ation E11.9 [facility] [place] [address] [place] [address] July, Acute pain of right shoulder M25.511 [facility] [place] [address] [address] [place] [id number] [place] [address] May, [place] [address] [address] May, [place] [address] [address] May, Calculus of gallbladder without cholecys titis without obstruction K80.20 ; Uncontrolled type 2 diabetes mellitus with hyperglycemia E11.65 and Breast mass, left N63.20 [place] [address] [address] May, Uncontrolled type 2 diabetes mellitus wi th hyperglycemia E11.65 ; Breast mass, left N63.20 and Calculus of gallbladder without cholecystitis without obstruction K80.20 [place] [address] [address] 18 Apr, 2018 Type 2 diabetes mellitus without complic ations E11.9 and Bronchitis J40 [facility] [address] [facility] [id number] [address] [address] Apr, Viral upper respiratory trac t infection J06.9 [place] [address] [address] Mar, [place] [address] [address] Oct, [place] [address] [address] Oct, Type 2 diabetes mellitus with hyperglyce katie E11.65 [place] [address] [address] Sep, Acute pain of left knee M25.562 [facility] [address] [facility] [id number] [address] [address] Sep, Right anterior knee pain M25 .561 [place] [address] [address] Sep, Abnormal mammogram of left breast R92.8 [place] [address] [address] Sep, Abnormal mammogram of left breast R92.8 [place] [address] [address] Aug, [place] [address] [address] Aug, Abnormal mammogram of left breast R92.8 [place] [address] [address] Aug, [place] [address] [address] Aug, Encounter for well woman exam with jocelyne bliss gynecological exam Z01.419 ; Screen for STD (sexually transmitted disease) Z11.3 ; Screening breast examination Z12.31 ; Other obesity due to excess calories E66.09 and Body mass index (BMI) of 33.0-33.9 in adult Z68.33 [place] [address] [address] 14 Jul, 2017 Type 2 diabetes mellitus with hyperglyce katie E11.65 and Iron deficiency anemia due to chronic blood loss D50.0 [place] [address] [address] 16 Jun, 2017 Acute left-sided back pain with sciatica M54.42 ; Type 2 diabetes mellitus without complications E11.9 and 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 [facility] [place] [address] [address] 09 Jun, 2017 Dysuria R30.0 and Lumbar luzmaria k pain M54.5 [facility] [address] [address] Feb, Acute seasonal allergic rhin itis, unspecified trigger J30.[address] [address] 18 Feb, 2017 Acute posthemorrhagic anemia D62 [place] [address] [address] Feb, Acute posthemorrhagic anemia D62 [address] [address] 04 Feb, 2017 Type 2 diabetes mellitus without complic ation E11.9 and Dry skin L85.[address] [address] Dec, [facility] [address] [address] 18 Nov, 2016 Weakness R53.1 and GERD (gas troesophageal reflux disease) K21.[address] [address] Nov, [address] [address] Sep, Type 2 diabetes mellitus without complic ations E11.9 [facility] [address] [place] [id number] [place] [address] July, Dysuria R30.0 and Acute cyst itis with hematuria N30.01 [facility] [address] [address] Jun, Seasonal allergic rhinitis, unspecified allergic rhinitis trigger J30.2 [place] [address] [address] Jun, Hiatal hernia K44.9 and Ulcer of esophag us without bleeding K22.10 [place] [address] [address] 07 Jun, 2016 Gastroesophageal reflux disease with eso phagitis K21.0 [place] [address] [id number] Jun, [address] [address] May, Type 2 diabetes mellitus with hyperglyce katie E11.65 and 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 [place] [address] [address] May, Other chronic pain G89.29 and Pain in le ft hip M25.[address] [address] 13 Apr, 2016 Nausea R11.0 [place] [address] [address] 09 Apr, 2016 SOB (shortness of breath) R06.02 ; Cough ing R05 and Type 2 diabetes mellitus without complication E11.9 [facility] [address] [address] Apr, Bronchitis J40 [place] [address] [address] Mar, Hiatal hernia K44.9 and Bronchitis J40 [place] [address] [address] Mar, [place] [address] [address] Mar, [place] [address] [address] Jan, [place] [address] [address] Dec, [place] [address] [address] Dec, Esophageal spasm K22.4 [place] [address] [address] Dec, [facility] IN [place] [address] [address] Dec, Right upper quadrant pain R1 0.11 and Abdominal pain, unspecified location R10.9 [facility] IN [place] [address] [address] Dec, Right upper quadrant pain R1 0.11 [place] [address] [address] Nov, Type 2 diabetes mellitus without complic ation E11.9 and Right upper quadrant pain R10.11 [facility] IN [place] [address] [address] Nov, Dysuria R30.0 and Abdominal pain, unspecified location R10.9 [place] [address] [address] Aug, Chronic gastritis without bleeding, unsp ecified gastritis type K29.50 ; Dysuria R30.0 and Type 2 diabetes mellitus without complication E11.9 [place] [address] [address] Aug, Gastroesophageal reflux disease, esophag itis presence not specified K21.9 and Acute cystitis with hematuria N30.01 [facility] IN [place] [address] [address] Aug, Dysuria R30.0 [place] [address] [address] July, [place] [address] [address] Jun, [place] [address] [address] May, Diabetes type 2, controlled E11.9 and Al lergic rhinitis J30.9 [place] [address] [address] Apr, Type 2 diabetes mellitus without complic ation E11.9 and Cough R05 [place] [address] [address] Apr, Vertigo R42 and Non-intractable vomiting with nausea, vomiting of unspecified type R11.2 [facility] [address] [facility] [id number] [address] [place] [address] Mar, Acute laryngopharyngitis J06 .0 ; Acute diarrhea R19.7 and Acute bacterial sinusitis J01.90 [place] [address] [address] Mar, Upper respiratory infection 465.9 [place] [address] [address] 14 Dec, 2014 Diabetes E11.9 [place] [address] [address] 10 Nov, 2014 Upper respiratory infection 465.9 [place] [address] [address] Sep, [place] [address] [address] Sep, Diabetes 250.00 [place] [address] [address] July, Diabetes mellitus without mention of com plication, type II or unspecified type, uncontrolled 250.02 and Cervicalgia 723.1 [facility] [address] [id number] [place] [address] July, [facility] [address] [id number] [place] [address] Jun, [facility] [address] [id number] [place] [address] Jun, [facility] [address] [id number] [place] [address] May, [facility] [address] [id number] [place] [address] May, [facility] [address] [id number] [place] [address] Apr, [facility] [address] [id number] [place] [address] Apr, [facility] [address] [id number] [place] [address] Apr, [facility] [address] [id number] [place] [address] Apr, [facility] [address] [id number] [place] [address] Mar, [facility] [address] [id number] [place] [address] Mar, [facility] [address] [id number] [place] [address] Feb, [facility] [address] [id number] [place] [address] Feb, [facility] [address] [id number] [place] [address] Jan, [facility] [address] [id number] [place] [address] Jan, [facility] [address] [id number] [place] [address] 16 Aug, 2013 [facility] [address] [id number] [place] [address] Aug, [facility] [address] [id number] [place] [address] July, [facility] [address] [id number] [place] [address] July, [facility] [address] [id number] [place] [address] Nov, [facility] [address] [id number] [place] [address] Nov, [facility] [address] [id number] [place] [address] Nov, [facility] [address] [id number] [place] [address] Sep, [facility] [address] [id number] [place] [address] Aug, [facility] [address] [id number] [place] [address] July, [facility] [address] [id number] [place] [address] Jun, [facility] [address] [id number] [place] [address] Jun, [facility] [address] [id number] [place] [address] Jun, [facility] [address] [id number] [place] [address] Jun, [facility] [address] [id number] [place] [address] May, [facility] [address] [id number] [place] [address] May, [facility] [address] [id number] [place] [address] Jan, [facility] [address] [id number] [place] [address] Jan, [facility] [address] [id number] [place] [address] Dec, [facility] [address] [id number] [place] [address] Dec, [facility] [address] [id number] [place] [address] Dec, [facility] [address] [id number] [place] [address] Dec, [facility] [address] [id number] [place] [address] Dec, [facility] [address] [id number] [place] [address] Dec, [facility] [address] [id number] [place] [address] Dec, [facility] [address] [id number] [place] [address] Aug, [facility] [address] [id number] [id number] Apr, [facility] [address] [id number] [place] [address] Apr, [facility] [address] [id number] [place] [address] Apr, [facility] [address] [id number] [place] [address] Apr, [facility] [address] [id number] [place] [address] Apr, [facility] [address] [id number] [place] [address] Dec, [facility] [address] [id number] [place] [address] 14 Dec, 2010 [facility] [address] [id number] [place] [address] Dec, [facility] [address] [id number] [place] [address] Dec, [facility] [address] [id number] [place] [address] Feb, [facility] [address] [id number] [place] [address] Feb, [facility] [address] [id number] [place] [address] Feb, [facility] [address] [place] [id number] [place] [address] Feb, [facility] [address] [id number] [place] [address] Aug, [facility] [address] [id number] [place] [address] May, IMMUNIZATIONS No Known Immunizations SOCIAL HISTORY Never Assessed REASON FOR VISIT DM -Rigo HYDE, PT states she went to [facility] ER on Saturday05/26/2017 due to a gall bladder attack. PT notes they saw at least two gallstones during her CT. -Jamal candelaria MA PLAN OF CARE Activity Details Follow Up 3 Months Reason:dm2 VITAL SIGNS Height 63 in 2018-05-29 Weight 187.1 lbs 2018-05-29 Temperature 98.4 degrees Fahrenheit 2018-05-29 Heart Rate 84 bpm 2018-05-29 Respiratory Rate 18 2018-05-29 Oximetry 98 % 2018-05-29 BMI 33.14 kg/m2 2018-05-29 Blood pressure systolic 128 mmHg 2018-05-29 Blood pressure diastolic 72 mmHg 2018-05-29 MEDICATIONS Medication Instructions Dosage Frequency Start Date End Date Duration S tatus Zithromax Z-Shaun 250 MG Orally Once a day 2 tablets on the first day, then 1 tablet daily for 4 days 24h Apr, 5 day(s) Not- Taking Metformin HCl 1000 MG Orally Twice a day 1 tablet with meals 12h May, 30 day(s) Active Acetaminophen 500 MG Orally every 6 hrs 2 capsules as needed 6h Active Zofran 8 MG Orally every 8 hours as needed 1 tablet Nov, 30 day(s) Active Albuterol Sulfate HFA 108 (90 Base) MCG/ACT Inhalation every 4 hrs 2 puffs as needed 4h Active Lantus SoloStar 100 UNIT/ML Subcutaneous Once a day 50 units 24h Active Zyrtec Allergy 10 MG Orally Once a day 1 tablet 24h Active Tessalon Perles 100 mg Orally Three times a day 1 capsule as needed 8h Apr, Not-Taking Tessalon Perles 100 mg Orally Three times a day 1 capsule as needed 8h Apr, 10 days Not-Taking RESULTS No Results PROCEDURES No Known procedures [...] UTI 11/27/15 Hospitalization History Upper abdominal pain, Ileus-[facility] 06/08 Hospitalization History [facility] ER, Gallbladder attack 05/26/2018
--- OUTSIDE RECORDS SUMMARY | 2019-07-31 21:19 | XMS REPORT ---
Author Author Raven MARTIN Organization [facility] Address [address] [place] [address] Care Team Providers Care Automation Qa Lead Name Role Phone CHERRY MARTIN Unavailable PROBLEMS Type Condition ICD9-CM Code ZBW56-FU Code Onset Dates Condition S tatus SNOMED Code Problem Type 2 diabetes mellitus without complication E11. 9 Active 74243020 Problem Abnormal mammogram of left breast R92.8 Active 947792636 Problem Type 2 diabetes mellitus with hyperglycemia E11.65 Active 528531110 Problem Esophageal spasm K22.4 Active 799 54720 Problem Other chronic pain G89.29 Active 8 4276002 Problem snf current use of insulin Z79.4 Active 546782528 Problem Gastroesophageal reflux disease with esophagitis K 21.0 Active 023354859 Problem Ulcer of esophagus without bleeding K22.10 Active 80744586 Problem GERD (gastroesophageal reflux disease) K21.9 Active 586627623 Problem Acute seasonal allergic rhinitis, unspecified trigger J30.2 Active 792931823 Problem Acute left-sided back pain with sciatica M54.42 Active 010388232 Problem Calculus of gallbladder without cholecystitis wi thout obstruction K80.20 Active 702578189 Problem Type 2 diabetes mellitus without complications E11 .9 Active 119854375 Problem GERD with esophagitis K21.0 Active 865859838 Problem Seasonal allergic rhinitis, unspecified allergic rhinitis trigger J30.2 Active 700911124 Problem Iron deficiency anemia due to chronic blood loss D 50.0 Active 848732560 Problem Other obesity due to excess calories E66.09 Active 092775609 Problem Body mass index (BMI) of 33.0-33.9 in adult Z68.33 Active 594606903 Problem Uncontrolled type 2 diabetes mellitus with hyperglycemia E11.65 Active 221423779 ALLERGIES No Information ENCOUNTERS Encounter Location Date Diagnosis [facility] [address] [facility] [id number] [address] [place] [address] Dec, [facility] [address] [facility] [id number] [address] [place] [address] Dec, Type 2 diabetes mellitus wit hout complication E11.9 [facility] [address] [place] [id number] [address] [place] [address] Oct, GERD with esophagitis K21.0 [place] [address] [place] [id number] [address] [place] [address] Aug, Type 2 diabetes mellitus wit hout complication E11.9 [facility] [address] [facility] [id number] [address] [place] [address] July, Acute pain of right shoulder M25.511 [facility] [address] [place] [id number] [address] [place] [address] May, [place] [address] [place] [address] May, [place] [address] [place] [address] May, Calculus of gallbladder with out cholecystitis without obstruction K80.20 ; Uncontrolled type 2 diabetes mellitus with hyperglycemia E11.65 and Breast mass, left N63.20 [place] [address] [place] [address] May, Uncontrolled type 2 diabetes mellitus with hyperglycemia E11.65 ; Breast mass, left N63.20 and Calculus of gallbladder without cholecystitis without obstruction K80.20 [facility] [address] [place] [id number] [address] [place] [address] 18 Apr, 2018 Type 2 diabetes mellitus wit hout complications E11.9 and Bronchitis J40 [facility] [address] [place] [id number] [address] [place] [address] 08 Apr, 2018 Viral upper respiratory trac t infection J06.9 [facility] [address] [place] [id number] [address] [place] [address] Mar, [place] [address] [place] [address] Oct, [place] [address] [place] [address] Oct, Type 2 diabetes mellitus wit h hyperglycemia E11.65 [place] [address] [facility] [id number] [address] [place] [address] Sep, Acute pain of left knee M25. 562 [facility] [address] [facility] [id number] [address] [place] [address] Sep, Right anterior knee pain M25 .561 [place] [address] [place] [id number] [place] [address] Sep, Abnormal mammogram of left b reast R92.8 [place] [address] [place] [id number] [address] [place] [address] Sep, Abnormal mammogram of left b reast R92.8 [place] [address] [place] [address] Aug, [place] [address] [address] Aug, Abnormal mammogram of left b reast R92.8 [place] [address] [place] [id number] [address] [place] [address] Aug, [place] [address] [address] Aug, Encounter for well woman exa m with routine gynecological exam Z01.419 ; Screen for STD (sexually transmitted disease) Z11.3 ; Screening breast examination Z12.31 ; Other obesity due to excess calories E66.09 and Body mass index (BMI) of 33.0-33.9 in adult Z68.33 [place] [address] [place] [id number] [address] [place] [address] July, Type 2 diabetes mellitus wit h hyperglycemia E11.65 and Iron deficiency anemia due to chronic blood loss D50.0 [place] [address] [facility] [id number] [address] [place] [address] 16 Jun, 2017 Acute left-sided back pain w ith sciatica M54.42 ; Type 2 diabetes mellitus without complications E11.9 and snf current use of insulin Z79.4 [facility] [address] [facility] [id number] [address] [place] [address] 09 Jun, 2017 Dysuria R30.0 and Lumbar luzmaria k pain M54.5 [facility] [address] [facility] [id number] [address] [place] [address] Feb, Acute seasonal allergic rhin itis, unspecified trigger J30.2 [place] [address] [place] [id number] [place] [address] 18 Feb, 2017 Acute posthemorrhagic anemia D62 [place] [address] [place] [id number] [place] [address] Feb, Acute posthemorrhagic anemia D62 [place] [address] [place] [id number] [address] [place] [address] Feb, Type 2 diabetes mellitus wit hout complication E11.9 and Dry skin L85.3 [place] [address] [place] [id number] [address] [place] [address] Dec, [facility] [address] [place] [id number] [address] [place] [address] 18 Nov, 2016 Weakness R53.1 and GERD (gas troesophageal reflux disease) K21.9 [facility] [address] [facility] [id number] [address] [place] [address] 18 Nov, [address] [place] [address] [facility] [id number] [place] [address] Sep, Type 2 diabetes mellitus wit hout complications E11.9 [facility] [address] [facility] [id number] [address] [place] [address] July, Dysuria R30.0 and Acute cyst itis with hematuria N30.01 [facility] [address] [address] Jun, Seasonal allergic rhinitis, unspecified allergic rhinitis trigger J30.2 [place] [address] [address] Jun, Hiatal hernia K44.9 and Ulce r of esophagus without bleeding K22.10 [place] [address] [address] 07 Jun, 2016 Gastroesophageal reflux dise ase with esophagitis K21.0 [facility] [address] [id number] Jun, [place] [address] [address] May, Type 2 diabetes mellitus wit h hyperglycemia E11.65 and snf current use of insulin Z79.4 [place] [address] [address] May, Other chronic pain G89.29 an d Pain in left hip M25.552 [place] [address] [address] 13 Apr, 2016 Nausea R11.0 [place] [address] [address] 09 Apr, 2016 SOB (shortness of breath) R0 6.02 ; Coughing R05 and Type 2 diabetes mellitus without complication E11.9 [facility] [address] [address] Apr, Bronchitis J40 [place] [address] [address] Mar, Hiatal hernia K44.9 and Bron chitis J40 [facility] [address] [address] Mar, [facility] [address] [address] Mar, [facility] [address] [facility] [id number] [address] [place] [address] Jan, [facility] [address] [facility] [id number] [address] [place] [address] Dec, [facility] [address] [facility] [id number] [address] [place] [address] Dec, Esophageal spasm K22.4 [place] [address] [facility] [id number] [address] [place] [address] Dec, [facility] [place] [address] [place] [id number] [place] [address] Dec, Right upper quadrant pain R1 0.11 and Abdominal pain, unspecified location R10.9 [facility] [place] [address] [place] [id number] [place] [address] Dec, Right upper quadrant pain R1 0.11 [facility] [address] [facility] [id number] [address] [place] [address] 29 Nov, 2015 Type 2 diabetes mellitus wit hout complication E11.9 and Right upper quadrant pain R10.11 [facility] [place] [address] [place] [id number] [place] [address] Nov, Dysuria R30.0 and Abdominal pain, unspecified location R10.9 [place] [address] [place] [id number] [address] [place] [address] 24 Aug, 2015 Chronic gastritis without bl eeding, unspecified gastritis type K29.50 ; Dysuria R30.0 and Type 2 diabetes mellitus without complication E11.9 [place] [address] [address] 10 Aug, 2015 Gastroesophageal reflux dise ase, esophagitis presence not specified K21.9 and Acute cystitis with hematuria N30.01 [facility] [address] [place] [id number] [address] [place] [address] 07 Aug, 2015 Dysuria R30.0 [facility] [address] [facility] [id number] [address] [place] [address] July, [facility] [address] [address] Jun, [facility] [address] [place] [id number] [place] [address] May, Diabetes type 2, controlled E11.9 and Allergic rhinitis J30.9 [facility] [address] [place] [id number] [place] [address] Apr, Type 2 diabetes mellitus wit hout complication E11.9 and Cough R05 [place] [address] [address] Apr, Vertigo R42 and Non-intracta ble vomiting with nausea, vomiting of unspecified type R11.2 [facility] [address] [place] [id number] [address] [place] [address] Mar, Acute laryngopharyngitis J06 .0 ; Acute diarrhea R19.7 and Acute bacterial sinusitis J01.90 [place] [address] [place] [id number] [address] [place] [address] Mar, Upper respiratory infection 465.9 [place] [address] [address] Dec, Diabetes E11.9 [place] [address] [place] [id number] [address] [place] [address] Nov, Upper respiratory infection 465.9 [facility] [address] [place] [id number] [address] [place] [address] Sep, [place] [address] [address] Sep, Diabetes 250.00 [place] [address] [place] [id number] [address] [place] [address] July, Diabetes mellitus without me ntion of complication, type II or unspecified type, uncontrolled 250.02 and Cervicalgia 723.1 [facility] [address] [id number] [address] [place] [address], [place] [address] July, [facility] [address] [id number] [address] [place] [address] Jun, [facility] [address] [id number] [address] [place] [address], [place] [address] Jun, [facility] [address] [id number] [address] [place] [address] May, [facility] [address] [id number] [address] [place] [address], [place] [address] May, [facility] [address] [id number] [address] [place] [address], [place] [address] Apr, [facility] [address] [id number] [address] [place] [address] Apr, [facility] [address] [id number] [address] [place] [address], [place] [address] Apr, [facility] [address] [id number] [address] [place] [address], [place] [address] Apr, [facility] [address] [id number] [address] [place] [address], [place] [address] Mar, [facility] [address] [id number] [address] [place] [address] Mar, [facility] [address] [id number] [address] [place] [address] Feb, [facility] [address] [id number] [address] [place] [address] Feb, [facility] [address] [id number] [address] [place] [address] Jan, [facility] [address] [id number] [address] [place] [address] Jan, [facility] [place] [facility] [address] [id number] [address] [place] [address], [place] [address] Aug, [facility] [address] [id number] [address] [place] [address], [place] [address] Aug, [facility] [address] [id number] [address] [place] [address], [place] [address] July, [facility] [address] [id number] [address] [place] [address], [place] [address] July, [facility] [address] [id number] [address] [place] [address], [place] [address] Nov, [facility] [address] [id number] [address] [place] [address], [place] [address] Nov, [facility] [address] [id number] [address] [place] [address], [place] [address] Nov, [facility] [address] [id number] [address] [place] [address], [place] [address] Sep, [facility] [address] [id number] [address] [place] [address], [place] [address] Aug, [facility] [address] [id number] [address] [place] [address], [place] [address] July, [facility] [address] [id number] [address] [place] [address], [place] [address] Jun, [facility] [address] [id number] [address] [place] [address], [place] [address] Jun, [facility] [address] [id number] [address] [place] [address], [place] [address] Jun, [facility] [address] [id number] [address] [place] [address], [place] [address] Jun, [facility] [address] [id number] [address] [place] [address], [place] [address] May, [facility] [address] [id number] [address] [place] [address], [place] [address] May, [facility] [address] [id number] [address] [place] [address], [place] [address] Jan, [facility] [address] [id number] [address] [place] [address], [place] [address] Jan, [facility] [address] [id number] [address] [place] [address], [place] [address] Dec, [facility] [place] [facility] [address] [id number] [address] [place] [address], [place] [address] Dec, [facility] [address] [id number] [address] [place] [address], [place] [address] Dec, [facility] [address] [id number] [address] [place] [address], [place] [address] Dec, [facility] [address] [id number] [address] [place] [address], [place] [address] Dec, [facility] [address] [id number] [address] [place] [address] Dec, [facility] [address] [id number] [address] [place] [address] Dec, [facility] [address] [id number] [address] [place] [address] Aug, [facility] [address] [id number] [place], [facility] [id number] Apr, [facility] [place] [facility] [address] [id number] [address] [place] [address] Apr, [facility] [address] [id number] [address] [place] [address], [place] [address] Apr, [facility] [address] [id number] [address] [place] [address] Apr, [facility] [place] [facility] [address] [id number] [address] [place] [address] Apr, [facility] [address] [id number] [address] [place] [address] 17 Dec, 2010 [facility] [address] [id number] [address] [place] [address] 14 Dec, 2010 [facility] [address] [id number] [address] [place] [address] 11 Dec, 2010 [facility] [address] [id number] [address] [place] [address] 11 Dec, 2010 [facility] [address] [id number] [address] [place] [address] 19 Feb, 2010 [facility] [address] [id number] [address] [place] [address] 16 Feb, 2010 [facility] [address] [id number] [address] [place] [address] 13 Feb, 2010 [facility] [address] [id number] [address] [place] [address] 13 Feb, 2010 [facility] [address] [id number] [address] [place] [address] 14 Aug, 2009 [facility] [address] [id number] [address] [place] [address] 16 May, 2009 IMMUNIZATIONS No Known Immunizations SOCIAL HISTORY Never Assessed REASON FOR VISIT PLAN OF CARE VITAL SIGNS Height 63 in 2013-08-24 Weight 194 lbs 2013-08-24 Temperature 98.5 degrees Fahrenheit 2013-08-24 Heart Rate 76 bpm 2013-08-24 Respiratory Rate 18 2013-08-24 Blood pressure systolic 134 mmHg 2013-08-24 Blood pressure diastolic 74 mmHg 2013-08-24 MEDICATIONS Unknown Medications RESULTS No Results PROCEDURES [...] Upper abdominal pain, Ileus-[facility] 06/08 Hospitalization History [facility], Gallbladder attack 05/26/2018
--- OUTSIDE RECORDS SUMMARY | 2019-07-31 21:19 | XMS REPORT ---
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 Active 433849592 Problem Gastroesophageal reflux disease with esophagitis K 21.0 Active 382792193 Problem Ulcer of esophagus without bleeding K22.10 Active 93869943 Problem Type 2 diabetes mellitus without complications E11 .9 Active 969817727 Problem Seasonal allergic rhinitis, unspecified allergic rhinitis trigger J30.2 Active 161092451 Problem Acute left-sided back pain with sciatica M54.42 Active 210688710 Problem Iron deficiency anemia due to chronic blood loss D 50.0 Active 479382307 Problem Other obesity due to excess calories E66.09 Active 081779223 Problem Seasonal allergic rhinitis due to other allergic trigger J30.89 Active 825219692 Problem Acute seasonal allergic rhinitis, unspecified trigger J30.2 Active 204872439 Problem Abnormal mammogram of left breast R92.8 Active 195022553 Problem MCFP (current) use of insulin Z79.4 Active 135854412 Problem GERD (gastroesophageal reflux disease) K21.9 Active 603677462 Problem Type 2 diabetes mellitus without complication E11. 9 Active 08674278 Problem Body mass index (BMI) of 33.0-33.9 in adult Z68.33 Active 008151536 Problem Uncontrolled type 2 diabetes mellitus with hyperglycemia E11.65 Active 102627052 Problem Calculus of gallbladder without cholecystitis wi thout obstruction K80.20 Active 634549899 Problem GERD with esophagitis K21.0 Active 051429451 ALLERGIES No Information ENCOUNTERS Encounter Location Date Diagnosis [place] [address] [address] 24 Dec, 2018 Seasonal allergic rhinitis due to other allergic trigger J30.89 ; Type 2 diabetes mellitus without complications E11.9 and MCFP (current) use of insulin Z79.4 [place] [address] [address] 08 Dec, 2018 Type 2 diabetes mellitus without complic ation E11.9 [place] [address] [address] Oct, GERD with esophagitis K21.0 [place] [address] [address] 12 Aug, 2018 Type 2 diabetes mellitus without complic ation E11.9 [facility] WALK IN [place] [address] [address] July, Acute pain of right shoulder M25.511 [facility] WALK IN [place] [address] [address] May, [place] [address] [address] May, [place] [address] [address] May, Calculus of gallbladder without cholecys titis without obstruction K80.20 ; Uncontrolled type 2 diabetes mellitus with hyperglycemia E11.65 and Breast mass, left N63.20 [place] [address] [address] May, Uncontrolled type 2 diabetes mellitus wi th hyperglycemia E11.65 ; Breast mass, left N63.20 and Calculus of gallbladder without cholecystitis without obstruction K80.20 [place] [address] [address] 18 Apr, 2018 Type 2 diabetes mellitus without complic ations E11.9 and Bronchitis J40 [facility] WALK IN [place] [address] [address] Apr, Viral upper respiratory trac t infection J06.9 [place] [address] [place] [id number] [place] [address] Mar, [place] [address] [address] Oct, [place] [address] [address] Oct, Type 2 diabetes mellitus with hyperglyce katie E11.65 [place] [address] [place] [id number] [place] [address] Sep, Acute pain of left knee M25.562 [facility] WALK IN [facility] [address] [facility] [id number] [address] [place] [address] Sep, Right anterior knee pain M25 .561 [place] [address] [address] Sep, Abnormal mammogram of left breast R92.8 [place] [address] [place] [id number] [place] [address] Sep, Abnormal mammogram of left breast R92.8 [place] [address] [address] Aug, [place] [address] [address] Aug, Abnormal mammogram of left breast R92.8 [place] [address] [address] Aug, [place] [address] [address] Aug, Encounter for well woman exam with jocelyne bliss gynecological exam Z01.419 ; Screen for STD (sexually transmitted disease) Z11.3 ; Screening breast examination Z12.31 ; Other obesity due to excess calories E66.09 and Body mass index (BMI) of 33.0-33.9 in adult Z68.33 [place] [address] [address] July, Type 2 diabetes mellitus with hyperglyce katie E11.65 and Iron deficiency anemia due to chronic blood loss D50.0 [place] [address] [address] 16 Jun, 2017 Acute left-sided back pain with sciatica M54.42 ; Type 2 diabetes mellitus without complications E11.9 and MCFP current use of insulin Z79.4 [facility] WALK IN [place] [address] [address] 09 Jun, 2017 Dysuria R30.0 and Lumbar luzmaria k pain M54.5 [facility] WALK IN [address] [address] Feb, Acute seasonal allergic rhin itis, unspecified trigger J30.2 [place] [address] [address] 18 Feb, 2017 Acute posthemorrhagic anemia D62 [place] [address] [address] Feb, Acute posthemorrhagic anemia D62 [place] [address] [address] Feb, Type 2 diabetes mellitus without complic ation E11.9 and Dry skin L85.3 [place] [address] [address] Dec, [facility] WALK IN [place] [address] [address] Nov, Weakness R53.1 and GERD (gas troesophageal reflux disease) K21.9 [place] [address] [address] Nov, [address] [address] Sep, Type 2 diabetes mellitus without complic ations E11.9 [facility] WALK IN [place] [address] [address] July, Dysuria R30.0 and Acute cyst itis with hematuria N30.01 [facility] [address] [place] [id number] [place] [address] Jun, Seasonal allergic rhinitis, unspecified allergic rhinitis trigger J30.2 [place] [address] [address] Jun, Hiatal hernia K44.9 and Ulcer of esophag us without bleeding K22.10 [place] [address] [address] 07 Jun, 2016 Gastroesophageal reflux disease with eso phagitis K21.0 [facility] [address] [id number] Jun, [place] [address] [address] May, Type 2 diabetes mellitus with hyperglyce katie E11.65 and MCFP current use of insulin Z79.4 [place] [address] [address] May, Other chronic pain G89.29 and Pain in le ft hip M25.[address] [address] 13 Apr, 2016 Nausea R11.0 [place] [address] [address] 09 Apr, 2016 SOB (shortness of breath) R06.02 ; Cough ing R05 and Type 2 diabetes mellitus without complication E11.9 [facility] [address] [place] [id number] [place] [address] 02 Apr, 2016 Bronchitis J40 [place] [address] [address] Mar, Hiatal hernia K44.9 and Bronchitis J40 [place] [address] [address] Mar, [place] [address] [address] Mar, [facility] [address] [address] Jan, [facility] [address] [address] Dec, [facility] [address] [address] Dec, Esophageal spasm K22.4 [place] [address] [address] Dec, [facility] WALK IN [place] [address] [address] Dec, Right upper quadrant pain R1 0.11 and Abdominal pain, unspecified location R10.9 [facility] WALK IN [place] [address] [address] Dec, Right upper quadrant pain R1 0.11 [place] [address] [address] Nov, Type 2 diabetes mellitus without complic ation E11.9 and Right upper quadrant pain R10.11 [facility] WALK IN [place] [address] [address] Nov, Dysuria R30.0 and Abdominal pain, unspecified location R10.9 [place] [address] [address] Aug, Chronic gastritis without bleeding, unsp ecified gastritis type K29.50 ; Dysuria R30.0 and Type 2 diabetes mellitus without complication E11.9 [place] [address] [address] 10 Aug, 2015 Gastroesophageal reflux disease, esophag itis presence not specified K21.9 and Acute cystitis with hematuria N30.01 [facility] WALK IN [place] [address] [address] 07 Aug, 2015 Dysuria R30.0 [place] [address] [address] July, [facility] [address] [address] Jun, [place] [address] [address] May, Diabetes type 2, controlled E11.9 and Al lergic rhinitis J30.9 [place] [address] [address] Apr, Type 2 diabetes mellitus without complic ation E11.9 and Cough R[address] [address] Apr, Vertigo R42 and Non-intractable vomiting with nausea, vomiting of unspecified type R11.2 [facility] WALK IN [facility] [address] [facility] [id number] [address] [place] [address] Mar, Acute laryngopharyngitis J06 .0 ; Acute diarrhea R19.7 and Acute bacterial sinusitis J01.90 [place] [address] [address] Mar, Upper respiratory infection 465.9 [place] [address] [address] Dec, Diabetes E11.9 [place] [address] [address] Nov, Upper respiratory infection 465.9 [place] [address] [address] Sep, [place] [address] [address] Sep, Diabetes 250.00 [place] [address] [address] July, Diabetes mellitus without mention of com plication, type II or unspecified type, uncontrolled 250.02 and Cervicalgia 723.1 [place] [address] [address] July, [facility] [address] [facility] [place] [address] Jun, [facility] [address] [facility] [place] [address] Jun, [facility] [address] [id number] [place] [address] May, [facility] [address] [id number] [place] [address] May, [facility] [address] [id number] [place] [address] Apr, [facility] [address] [id number] [place] [address] Apr, [facility] [address] [id number] [place] [address] Apr, [facility] [address] [id number] [place] [address] Apr, [facility] [address] [id number] [place] [address] Mar, [facility] [address] [id number] [place] [address] Mar, [facility] [address] [id number] [place] [address] Feb, [facility] [address] [id number] [place] [address] Feb, [facility] [address] [id number] [place] [address] Jan, [facility] [address] [id number] [place] [address] Jan, [facility] [address] [id number] [place] [address] Aug, [facility] [address] [id number] [place] [address] Aug, [facility] [address] [id number] [place] [address] July, [facility] [address] [id number] [place] [address] July, [facility] [address] [id number] [place] [address] Nov, [facility] [address] [id number] [place] [address] Nov, [facility] [address] [id number] [place] [address] Nov, [facility] [address] [id number] [place] [address] Sep, [facility] [address] [id number] [place] [address] Aug, [facility] [address] [id number] [place] [address] July, [facility] [address] [id number] [place] [address] Jun, [facility] [address] [id number] [place] [address] Jun, [facility] [address] [id number] [place] [address] Jun, [facility] [address] [id number] [place] [address] Jun, [facility] [address] [id number] [place] [address] May, [facility] [address] [id number] [place] [address] May, [facility] [address] [place] [id number] [place] [address] Jan, [facility] [address] [id number] [place] [address] Jan, [facility] [address] [id number] [place] [address] Dec, [facility] [address] [id number] [place] [address] Dec, [facility] [address] [id number] [place] [address] Dec, [facility] [address] [facility] [place] [address] Dec, [facility] [address] [facility] [place] [address] Dec, [facility] [address] [id number] [place] [address] Dec, [facility] [address] [id number] [place] [address] Dec, [facility] [address] [id number] [place] [address] Aug, [facility] [address] [id number] Apr, [facility] [address] [id number] [place] [address] Apr, [facility] [address] [id number] [place] [address] Apr, [facility] [address] [id number] [place] [address] Apr, [facility] [address] [id number] [place] [address] Apr, [facility] [address] [id number] [place] [address] Dec, [facility] [address] [facility] [place] [address] 14 Dec, 2010 [facility] [address] [facility] [place] [address] Dec, [facility] [address] [id number] [place] [address] Dec, [facility] [address] [id number] [place] [address] 19 Feb, 2010 [facility] [address] [facility] [place] [address] Feb, [facility] [address] [id number] [place] [address] Feb, [facility] [address] [id number] [place] [address] Feb, [facility] [address] [id number] [place] [address] 14 Aug, 2009 [facility] [address] [id number] [place] [address] May, IMMUNIZATIONS No Known Immunizations SOCIAL HISTORY Never Assessed REASON FOR VISIT Returned call PLAN OF CARE VITAL SIGNS MEDICATIONS Medication Instructions Dosage Frequency Start Date End Date Duration S tatus Pantoprazole Sodium 40 mg Orally Once a day 1 tablet 24h May 30 day(s) Active RESULTS No Results PROCEDURES No Known [...] UTI 11/27/15 Hospitalization History Upper abdominal pain, [facility] 06/08 Hospitalization History [facility] ER, Gallbladder attack 05/26/2018
--- OUTSIDE RECORDS SUMMARY | 2019-07-31 21:19 | XMS REPORT ---
Author Author Raven REAL [facility] Address [address] [place] [address] Care Team Providers Care It Field Technician Name Role Phone RIAZ REAL Unavailable PROBLEMS Type Condition ICD9-CM Code VDB72-LN Code Onset Dates Condition S tatus SNOMED Code Problem Other chronic pain G89.29 Active 8 9434411 Problem terminal gauger current use of insulin Z79.4 Active 485782862 Problem Gastroesophageal reflux disease with esophagitis K 21.0 Active 941366485 Problem Ulcer of esophagus without bleeding K22.10 Active 02699059 Problem Type 2 diabetes mellitus without complications E11 .9 Active 277542959 Problem Seasonal allergic rhinitis, unspecified allergic rhinitis trigger J30.2 Active 277011160 Problem Acute seasonal allergic rhinitis, unspecified trigger J30.2 Active 909359161 Problem Abnormal mammogram of left breast R92.8 Active 395134899 Problem GERD (gastroesophageal reflux disease) K21.9 Active 457980189 Problem Other obesity due to excess calories E66.09 Active 619179258 Problem Body mass index (BMI) of 33.0-33.9 in adult Z68.33 Active 358182597 Problem Uncontrolled type 2 diabetes mellitus with hyperglycemia E11.65 Active 062562146 Problem Irritable bowel syndrome with diarrhea K58.0 Active 611452632 Problem Iron deficiency anemia due to chronic blood loss D 50.0 Active 174140078 Problem Esophageal spasm K22.4 Active 875 97408 Problem Gastroesophageal reflux disease, esophagitis pre sence not specified K21.9 Active 720902254 Problem Acute left-sided back pain with sciatica M54.42 Active 390697830 Problem Type 2 diabetes mellitus without complication E11. 9 Active 60334568 Problem Type 2 diabetes mellitus with hyperglycemia E11.65 Active 822458453 Problem Calculus of gallbladder without cholecystitis wi thout obstruction K80.20 Active 398611376 Problem GERD with esophagitis K21.0 Active 244182842 Problem Seasonal allergic rhinitis due to other allergic trigger J30.89 Active 689820414 Problem custodial (current) use of insulin Z79.4 Active 231803360 ALLERGIES No Information ENCOUNTERS Encounter Location Date Diagnosis [facility] [address] [address] July, [facility] [address] [place] [address] [facility] [id number] [address] 13 Jun, 2019 [place] [address] [address] 02 Jun, 2019 Dysuria R30.0 and Type 2 shalini betes mellitus without complication E11.9 [place] [address] [address] 03 May, 2019 Other obesity due to excess calories E66.09 [place] [address] [address] 27 Apr, 2019 Type 2 diabetes mellitus wit hout complication E11.9 and Gastroesophageal reflux disease with esophagitis K21.0 [facility] IN [facility] [address] [address] 08 Apr, 2019 Gastroesophageal reflux dise ase, esophagitis presence not specified K21.9 [place] [address] [address] Mar, Irritable bowel syndrome wit h diarrhea K58.0 and Coughing R05 [place] [address] [address] Dec, Seasonal allergic rhinitis d ue to other allergic trigger J30.89 ; Type 2 diabetes mellitus without complications E11.9 and custodial (current) use of insulin Z79.4 [place] [address] [address] 08 Dec, 2018 Type 2 diabetes mellitus wit hout complication E11.9 [facility] [address] [address] Oct, GERD with esophagitis K21.0 [facility] [address] [facility] [id number] [address] [place] [address] Aug, Type 2 diabetes mellitus wit hout complication E11.9 [facility] [address] [facility] [id number] [address] [place] [address] July, Acute pain of right shoulder M25.511 [facility] [address] [facility] [id number] [address] [place] [address] May, [facility] [address] [facility] [id number] [address] [place] [address] May, [facility] [address] [facility] [id number] [address] [place] [address] May, Calculus of gallbladder with out cholecystitis without obstruction K80.20 ; Uncontrolled type 2 diabetes mellitus with hyperglycemia E11.65 and Breast mass, left N63.20 [facility] [address] [place] [id number] [address] [place] [address] May, Uncontrolled type 2 diabetes mellitus with hyperglycemia E11.65 ; Breast mass, left N63.20 and Calculus of gallbladder without cholecystitis without obstruction K80.20 [facility] [address] [place] [id number] [address] [place] [address] Apr, Type 2 diabetes mellitus wit hout complications E11.9 and Bronchitis J40 [facility] IN [facility] [address] [facility] [id number] [address] [place] [address] Apr, Viral upper respiratory trac t infection J06.9 [facility] [address] [facility] [id number] [address] [place] [address] Mar, [facility] [address] [place] [id number] [address] [place] [address] Oct, [facility] [address] [facility] [id number] [address] [place] [address] Oct, Type 2 diabetes mellitus wit h hyperglycemia E11.65 [facility] [address] [place] [id number] [address] [place] [address] Sep, Acute pain of left knee M25. 562 [facility] [address] [place] [id number] [address] [place] [address] Sep, Right anterior knee pain M25 .561 [place] [address] [place] [id number] [address] [place] [address] Sep, Abnormal mammogram of left b reast R92.8 [place] [address] [place] [id number] [address] [place] [address] Sep, Abnormal mammogram of left b reast R92.8 [place] [address] [place] [id number] [address] [place] [address] Aug, [place] [address] [place] [id number] [place] [address] Aug, Abnormal mammogram of left b reast R92.8 [place] [address] [place] [id number] [address] [place] [address] Aug, [place] [address] [place] [id number] [address] [place] [address] Aug, Encounter for well woman santiago christine with routine gynecological exam Z01.419 ; Screen for STD (sexually transmitted disease) Z11.3 ; Screening breast examination Z12.31 ; Other obesity due to excess calories E66.09 and Body mass index (BMI) of 33.0-33.9 in adult Z68.33 [place] [address] [place] [id number] [address] [place] [address] July, Type 2 diabetes mellitus wit h hyperglycemia E11.65 and Iron deficiency anemia due to chronic blood loss D50.0 [place] [address] [place] [id number] [place] [address] 16 Jun, 2017 Acute left-sided back pain w ith sciatica M54.42 ; Type 2 diabetes mellitus without complications E11.9 and terminal gauger current use of insulin Z79.4 [facility] [address] [place] [address] Jun, Dysuria R30.0 and Lumbar luzmaria k pain M54.5 [facility] [address] [address] Feb, Acute seasonal allergic rhin itis, unspecified trigger J30.2 [place] [address] [address] Feb, Acute posthemorrhagic anemia D62 [place] [address] [address] Feb, Acute posthemorrhagic anemia D62 [place] [address] [address] Feb, Type 2 diabetes mellitus wit hout complication E11.9 and Dry skin L85.3 [place] [address] [address] Dec, [facility] IN [facility] [address] [address] Nov, Weakness R53.1 and GERD (gas troesophageal reflux disease) K21.9 [place] [address] [address] Nov, [place] [address] [address] Sep, Type 2 diabetes mellitus wit hout complications E11.9 [facility] IN [facility] [address] [address] July, Dysuria R30.0 and Acute cyst itis with hematuria N30.01 [facility] W[facility] IN [place] [address] [address] Jun, Seasonal allergic rhinitis, unspecified allergic rhinitis trigger J30.2 [place] [address] [address] Jun, Hiatal hernia K44.9 and Ulce r of esophagus without bleeding K22.10 [facility] [address] [address] 07 Jun, 2016 Gastroesophageal reflux dise ase with esophagitis K21.0 [facility] [address] [place] [id number] 05 Jun, 2016 [facility] [address] [address] May, Type 2 diabetes mellitus wit h hyperglycemia E11.65 and custodial current use of insulin Z79.4 [place] [address] [address] May, Other chronic pain G89.29 an d Pain in left hip M25.552 [place] [address] [address] 13 Apr, 2016 Nausea R11.0 [place] [address] [address] 09 Apr, 2016 SOB (shortness of breath) R0 6.02 ; Coughing R05 and Type 2 diabetes mellitus without complication E11.9 [facility] [address] [address] 02 Apr, 2016 Bronchitis J40 [facility] [address] [address] Mar, Hiatal hernia K44.9 and Bron chitis J40 [facility] [address] [address] Mar, [place] [address] [address] Mar, [facility] [address] [address] Jan, [facility] [address] [address] Dec, [place] [address] [id number] [address] [place] [address] Dec, Esophageal spasm K22.4 [facility] [address] [id number] [address] [place] [address] Dec, [facility] IN [facility] [address] [facility] [id number] [address] [place] [address] Dec, Right upper quadrant pain R1 0.11 and Abdominal pain, unspecified location R10.9 [facility] IN [facility] [address] [id number] [address] [place] [address] Dec, Right upper quadrant pain R1 0.11 [place] [address] [facility] [id number] [address] [place] [address] Nov, Type 2 diabetes mellitus wit hout complication E11.9 and Right upper quadrant pain R10.11 [facility] [place] [address] [facility] [id number] [address] [place] [address] Nov, Dysuria R30.0 and Abdominal pain, unspecified location R10.9 [place] [address] N [facility] [id number] [address] [place] [address] Aug, Chronic gastritis without bl eeding, unspecified gastritis type K29.50 ; Dysuria R30.0 and Type 2 diabetes mellitus without complication E11.9 [place] [address] [facility] [id number] [address] [place] [address] Aug, Gastroesophageal reflux dise ase, esophagitis presence not specified K21.9 and Acute cystitis with hematuria N30.01 [facility] [address] [facility] [id number] [address] [place] [address] Aug, Dysuria R30.0 [place] [address] [facility] [id number] [address] [place] [address] July, [facility] [address] [facility] [id number] [address] [place] [address] Jun, [facility] [address] [place] [id number] [address] [place] [address] May, Diabetes type 2, controlled E11.9 and Allergic rhinitis J30.9 [facility] [address] [place] [id number] [place] [address] Apr, Type 2 diabetes mellitus wit hout complication E11.9 and Cough R05 [facility] [address] [place] [id number] [address] [place] [address] Apr, Vertigo R42 and Non-intracta ble vomiting with nausea, vomiting of unspecified type R11.2 [facility] [address] [facility] [id number] [address] [place] [address] Mar, Acute laryngopharyngitis J06 .0 ; Acute diarrhea R19.7 and Acute bacterial sinusitis J01.90 [facility] [address] [place] [id number] [address] [place] [address] Mar, Upper respiratory infection 465.9 [facility] [address] [address] Dec, Diabetes E11.9 [place] [address] [address] Nov, Upper respiratory infection 465.9 [facility] [address] [place] [id number] [address] [place] [address] Sep, [facility] [address] [place] [id number] [address] [place] [address] Sep, Diabetes 250.00 [facility] [address] [place] [id number] [address] [place] [address] July, Diabetes mellitus without me ntion of complication, type II or unspecified type, uncontrolled 250.02 and Cervicalgia 723.1 [facility] [address] [place] [id number] [address] [place] [address] July, [facility] [address] [place] [id number] [address] [place] [address] Jun, [facility] [address] [id number] [address] [place] [address], [place] [address] Jun, [facility] [address] [id number] [address] [place] [address], [place] [address] May, [facility] [address] [id number] [address] [place] [address], [place] [address] May, [facility] [address] [id number] [address] [place] [address], [place] [address] Apr, [facility] [address] [id number] [address] [place] [address], [place] [address] Apr, [facility] [address] [id number] [address] [place] [address], [place] [address] Apr, [facility] [address] [id number] [address] [place] [address], [place] [address] Apr, [facility] [address] [id number] [address] [place] [address], [place] [address] Mar, [facility] [address] [id number] [address] [place] [address], [place] [address] Mar, [facility] [address] [id number] [address] [place] [address], [place] [address] Feb, [facility] [address] [id number] [address] [place] [address], [place] [address] 15 Feb, 2014 [facility] [address] [id number] [address] [place] [address], [place] [address] Jan, [facility] [address] [id number] [address] [place] [address], [place] [address] Jan, [facility] [address] [id number] [address] [place] [address], [place] [address] 16 Aug, 2013 [facility] [address] [id number] [address] [place] [address], [place] [address] 16 Aug, 2013 [facility] [address] [id number] [address] [place] [address], [place] [address] July, [facility] [address] [id number] [address] [place] [address], [place] [address] July, [facility] [address] [id number] [address] [place] [address], [place] [address] Nov, [facility] [address] [id number] [address] [place] [address], [place] [address] Nov, [facility] [address] [id number] [address] [place] [address], [place] [address] Nov, [facility] [address] [id number] [address] [place] [address], [place] [address] Sep, [facility] [address] [id number] [address] [place] [address], [place] [address] Aug, [facility] [address] [id number] [address] [place] [address], [place] [address] July, [facility] [address] [id number] [address] [place] [address], [place] [address] Jun, [facility] [address] [id number] [address] [place] [address], [place] [address] Jun, [facility] [address] [id number] [address] [place] [address], [place] [address] Jun, [facility] [address] [id number] [address] [place] [address], [place] [address] Jun, [facility] [address] [id number] [address] [place] [address], [place] [address] May, [facility] [address] [id number] [address] [place] [address], [place] [address] May, [facility] [address] [id number] [address] [place] [address], [place] [address] Jan, [facility] [address] [id number] [address] [place] [address], [place] [address] Jan, [facility] [address] [id number] [address] [place] [address], [place] [address] Dec, [facility] [address] [id number] [address] [place] [address], [place] [address] Dec, [facility] [address] [id number] [address] [place] [address], [place] [address] Dec, [facility] [address] [id number] [address] [place] [address], [place] [address] Dec, [facility] [address] [id number] [address] [place] [address], [place] [address] Dec, [facility] [address] [id number] [address] [place] [address], [place] [address] Dec, [facility] [address] [id number] [address] [place] [address], [place] [address] Dec, [facility] [address] [id number] [address] [place] [address], [place] [address] Aug, [facility] [address] [facility] [address] [id number] [id number] Apr, [facility] [address] [id number] [address] [place] [address], [place] [address] Apr, [facility] [address] [id number] [address] [place] [address], [place] [address] Apr, [facility] [address] [id number] [address] [place] [address], [place] [address] Apr, [facility] [address] [id number] [address] [place] [address], [place] [address] Apr, [facility] [address] [id number] [address] [place] [address], [place] [address] Dec, [facility] [address] [id number] [address] [place] [address], [place] [address] 14 Dec, 2010 [facility] [address] [id number] [address] [place] [address] 11 Dec, 2010 [facility] [address] [id number] [address] [place] [address] 11 Dec, 2010 [facility] [address] [id number] [address] [place] [address] 19 Feb, 2010 [facility] [address] [id number] [address] [place] [address] 16 Feb, 2010 [facility] [address] [id number] [address] [place] [address] Feb, [facility] [address] [id number] [address] [place] [address] Feb, [facility] [address] [id number] [address] [place] [address] 14 Aug, 2009 [facility] [address] [facility] [id number] [address] [place] [address] May, IMMUNIZATIONS No Known Immunizations SOCIAL HISTORY [...] UTI 11/27/15 Hospitalization History Upper abdominal pain, [facility] 06/08 Hospitalization History [facility] ER, Gallbladder attack 05/26/2018
--- OUTSIDE RECORDS SUMMARY | 2019-07-31 21:25 | XMS REPORT | Continuity of Care Document ---
Demographics Preferred Language Unknown Marital Status Unknown Nondenominational Affiliation Unknown Race Unknown Ethnic Group Unknown Author Organization Unknown Address Unknown Phone Unavailable Allergies Active Description Code Type Severity Reaction Onset Reported/Identified Relationship to Patient Clinical Status Yes Penicillins Drug Allergy 05/24/2009 Yes Penicillins Drug Allergy N/A N/A 05/24/2009 Yes Penicillins [id number] Drug Aller gy Mild N/A 03/10/[id number] ug Allergy Moderate N/A 07/30/[id number] ug Allergy Mild RED RASH/GI UPS 06/12/2018 Yes Penicillins [id number] Drug Aller gy Mild RASH 06/12/2018 Medications There is no data. Problems Date Dx Coded Attending Type Code Diagnosis Diagnosed By 05/24/2009 250.02 RAFIA BETES MELLITUS POORLY CONTROLLED 05/24/2009 272.4 HYPE RLIPIDEMIA HYPERLIPOPROTEINEMIAS (Old Classification) 05/24/2009 RIAZ REAL DO 250.02 DIABETES MELLITUS POORLY CONTROLLED 05/24/2009 RIAZ REAL DO 272.4 HYPERLIPIDEMIA HYPERLIPOPROTEINEMIAS (Old Classification) 05/24/2009 250.02 RAFIA BETES MELLITUS POORLY CONTROLLED 05/24/2009 272.4 HYPE RLIPIDEMIA HYPERLIPOPROTEINEMIAS (Old Classification) 05/24/2009 250.02 RAFIA BETES MELLITUS POORLY CONTROLLED 05/24/2009 272.4 HYPE RLIPIDEMIA HYPERLIPOPROTEINEMIAS (Old Classification) 05/24/2009 250.02 RAFIA BETES MELLITUS POORLY CONTROLLED 05/24/2009 272.4 HYPE RLIPIDEMIA HYPERLIPOPROTEINEMIAS (Old Classification) 05/24/2009 250.02 RAFIA BETES MELLITUS POORLY CONTROLLED 05/24/2009 272.4 HYPE RLIPIDEMIA HYPERLIPOPROTEINEMIAS (Old Classification) 05/24/2009 250.02 RAFIA BETES MELLITUS POORLY CONTROLLED 05/24/2009 272.4 HYPE RLIPIDEMIA HYPERLIPOPROTEINEMIAS (Old Classification) 05/24/2009 250.02 RAFIA BETES MELLITUS POORLY CONTROLLED 05/24/2009 272.4 HYPE RLIPIDEMIA HYPERLIPOPROTEINEMIAS (Old Classification) 05/24/2009 MARIO INTEGRATED LOGISTICS SUPPORT MANAGER, CHERRY T 250.02 DIABETES MELLITUS POORLY CONTROLLED 05/24/2009 MARIO INTEGRATED LOGISTICS SUPPORT MANAGER, CHERRY T 27 2.4 HYPERLIPIDEMIA HYPERLIPOPROTEINEMIAS (Old Classification) 05/24/2009 MARIO INTEGRATED LOGISTICS SUPPORT MANAGER, CHERRY T 250.02 DIABETES MELLITUS POORLY CONTROLLED 05/24/2009 MARIO INTEGRATED LOGISTICS SUPPORT MANAGER, CHERRY T 27 2.4 HYPERLIPIDEMIA HYPERLIPOPROTEINEMIAS (Old Classification) 05/24/2009 MARIO INTEGRATED LOGISTICS SUPPORT MANAGER, CHERRY T 250.02 DIABETES MELLITUS POORLY CONTROLLED 05/24/2009 MARIO INTEGRATED LOGISTICS SUPPORT MANAGER, CHERRY T 27 2.4 HYPERLIPIDEMIA HYPERLIPOPROTEINEMIAS (Old Classification) 05/24/2009 MARIO INTEGRATED LOGISTICS SUPPORT MANAGER, CHERRY T 250.02 DIABETES MELLITUS POORLY CONTROLLED 05/24/2009 MARIO INTEGRATED LOGISTICS SUPPORT MANAGER, CHERRY T 27 2.4 HYPERLIPIDEMIA HYPERLIPOPROTEINEMIAS (Old Classification) 05/24/2009 MARIO INTEGRATED LOGISTICS SUPPORT MANAGER, CHERRY T 250.02 DIABETES MELLITUS POORLY CONTROLLED 05/24/2009 MARIO INTEGRATED LOGISTICS SUPPORT MANAGER, CHERRY T 27 2.4 HYPERLIPIDEMIA HYPERLIPOPROTEINEMIAS (Old Classification) 05/24/2009 MARIO INTEGRATED LOGISTICS SUPPORT MANAGER, CHERRY T 250.02 DIABETES MELLITUS POORLY CONTROLLED 05/24/2009 MARIO INTEGRATED LOGISTICS SUPPORT MANAGER, CHERRY T 27 2.4 HYPERLIPIDEMIA HYPERLIPOPROTEINEMIAS (Old Classification) 05/24/2009 MARIO INTEGRATED LOGISTICS SUPPORT MANAGER, CHERRY T 250.02 DIABETES MELLITUS POORLY CONTROLLED 05/24/2009 MARIO SHRESTHAN, CHERRY T 27 2.4 HYPERLIPIDEMIA HYPERLIPOPROTEINEMIAS (Old Classification) 06/14/2009 V72.31 Foam Rubber Molder Exam, Routine 06/14/2009 RIAZ REAL DO V72.31 Foam Rubber Molder Exam, Routine 06/14/2009 V72.31 Foam Rubber Molder Exam, Routine 06/14/2009 V72.31 Foam Rubber Molder Exam, Routine 06/14/2009 V72.31 Foam Rubber Molder Exam, Routine 06/14/2009 V72.31 Foam Rubber Molder Exam, Routine 06/14/2009 V72.31 Foam Rubber Molder Exam, Routine 06/14/2009 V72.31 Foam Rubber Molder Exam, Routine 06/14/2009 CHERRY MARTIN APRN V72.31 Foam Rubber Molder Exam, Routine 06/14/2009 CHERRY MARTIN APRN V72.31 Foam Rubber Molder Exam, Routine 06/14/2009 CHERRY MARTIN APRN V72.31 Foam Rubber Molder Exam, Routine 06/14/2009 CHERRY MARTIN APRN V72.31 Foam Rubber Molder Exam, Routine 06/14/2009 CHERRY MARTIN APRN V72.31 Foam Rubber Molder Exam, Routine 06/14/2009 CHERRY MARTIN APRN V72.31 Foam Rubber Molder Exam, Routine 06/14/2009 CHERRY MARTIN APRN V72.31 Foam Rubber Molder Exam, Routine 07/19/2009 V58.69 christiano ing high-risk medication 07/19/2009 RIAZ REAL DO V58.69 taking high-risk medication 07/19/2009 V58.69 christiano ing high-risk medication 07/19/2009 V58.69 christiano ing high-risk medication 07/19/2009 V58.69 christiano ing high-risk medication 07/19/2009 V58.69 christiano ing high-risk medication 07/19/2009 V58.69 christiano ing high-risk medication 07/19/2009 V58.69 christiano ing high-risk medication 07/19/2009 CHERRY MARTIN APRN V58.69 taking high-risk medication 07/19/2009 CHERRY MARTIN APRN V58.69 taking high-risk medication 07/19/2009 CHERRY MARTIN APRN V58.69 taking high-risk medication 07/19/2009 CHERRY MARTIN APRN V58.69 taking high-risk medication 07/19/2009 CHERRY MARTIN APRN V58.69 taking high-risk medication 07/19/2009 CHERRY MARTIN APRN V58.69 taking high-risk medication 07/19/2009 CHERRY MARTIN APRN V58.69 taking high-risk medication 08/22/2009 250.00 RAFIA BETES MELLITUS 08/22/2009 466.0 Acut e Bronchitis 08/22/2009 RIAZ REAL DO 250.00 DIABETES MELLITUS 08/22/2009 RIAZ REAL DO 466.0 Acute Bronchitis 08/22/2009 250.00 RAFIA BETES MELLITUS 08/22/2009 466.0 Acut e Bronchitis 08/22/2009 250.00 RAFIA BETES MELLITUS 08/22/2009 466.0 Acut e Bronchitis 08/22/2009 250.00 RAFIA BETES MELLITUS 08/22/2009 466.0 Acut e Bronchitis 08/22/2009 250.00 RAFIA BETES MELLITUS 08/22/2009 466.0 Acut e Bronchitis 08/22/2009 250.00 RAFIA BETES MELLITUS 08/22/2009 466.0 Acut e Bronchitis 08/22/2009 250.00 RAFIA BETES MELLITUS 08/22/2009 466.0 Acut e Bronchitis 08/22/2009 MARIO INTEGRATED LOGISTICS SUPPORT MANAGER, CHERRY T 250.00 DIABETES MELLITUS 08/22/2009 MARIO INTEGRATED LOGISTICS SUPPORT MANAGER, CHERRY T 46 6.0 Acute Bronchitis 08/22/2009 MARIO INTEGRATED LOGISTICS SUPPORT MANAGER, CHERRY T 250.00 DIABETES MELLITUS 08/22/2009 MARIO INTEGRATED LOGISTICS SUPPORT MANAGER, CHERRY T 46 6.0 Acute Bronchitis 08/22/2009 MARIO INTEGRATED LOGISTICS SUPPORT MANAGER, CHERRY T 250.00 DIABETES MELLITUS 08/22/2009 MARIO INTEGRATED LOGISTICS SUPPORT MANAGER, CHERRY T 46 6.0 Acute Bronchitis 08/22/2009 MARIO INTEGRATED LOGISTICS SUPPORT MANAGER, CHERRY T 250.00 DIABETES MELLITUS 08/22/2009 MARIO INTEGRATED LOGISTICS SUPPORT MANAGER, CHERRY T 46 6.0 Acute Bronchitis 08/22/2009 MARIO INTEGRATED LOGISTICS SUPPORT MANAGER, CHERRY T 250.00 DIABETES MELLITUS 08/22/2009 MARIO INTEGRATED LOGISTICS SUPPORT MANAGER, CHERRY T 46 6.0 Acute Bronchitis 08/22/2009 MARIO INTEGRATED LOGISTICS SUPPORT MANAGER, CHERRY T 250.00 DIABETES MELLITUS 08/22/2009 MARIO INTEGRATED LOGISTICS SUPPORT MANAGER, CHERRY T 46 6.0 Acute Bronchitis 08/22/2009 MARIO INTEGRATED LOGISTICS SUPPORT MANAGER, CHERRY T 250.00 DIABETES MELLITUS 08/22/2009 MARIO INTEGRATED LOGISTICS SUPPORT MANAGER, CHERRY T 46 6.0 Acute Bronchitis 11/28/2009 V03.82 Nee d For Vaccination Pneumococcal 11/28/2009 V04.81 Vac cines Prophylactic Need Against Influenza 11/28/2009 RIAZ REAL DO V03.82 Need For Vaccination Pneumococcal 11/28/2009 RIAZ REAL DO V04.81 Vaccines Prophylactic Need Against Influenza 11/28/2009 V03.82 Nee d For Vaccination Pneumococcal 11/28/2009 V04.81 Vac cines Prophylactic Need Against Influenza 11/28/2009 V03.82 Nee d For Vaccination Pneumococcal 11/28/2009 V04.81 Vac cines Prophylactic Need Against Influenza 11/28/2009 V03.82 Nee d For Vaccination Pneumococcal 11/28/2009 V04.81 Vac cines Prophylactic Need Against Influenza 11/28/2009 V03.82 Nee d For Vaccination Pneumococcal 11/28/2009 V04.81 Vac cines Prophylactic Need Against Influenza 11/28/2009 V03.82 Nee d For Vaccination Pneumococcal 11/28/2009 V04.81 Vac cines Prophylactic Need Against Influenza 11/28/2009 V03.82 Nee d For Vaccination Pneumococcal 11/28/2009 V04.81 Vac cines Prophylactic Need Against Influenza 11/28/2009 MARIO INTEGRATED LOGISTICS SUPPORT MANAGER, CHERRY T V03.82 Need For Vaccination Pneumococcal 11/28/2009 MARIO INTEGRATED LOGISTICS SUPPORT MANAGER, CHERRY T V04.81 Vaccines Prophylactic Need Against Influenza 11/28/2009 CHERRY MARTIN APRN T V03.82 Need For Vaccination Pneumococcal 11/28/2009 MARIO CALDERÓN CHERRY T V04.81 Vaccines Prophylactic Need Against Influenza 11/28/2009 CHERRY MARTIN APRN T V03.82 Need For Vaccination Pneumococcal 11/28/2009 CHERRY MARTIN APRN T V04.81 Vaccines Prophylactic Need Against Influenza 11/28/2009 CHERRY MARTIN APRN T V03.82 Need For Vaccination Pneumococcal 11/28/2009 MARIO CALDERÓN CHERRY T V04.81 Vaccines Prophylactic Need Against [...] Vaccines Prophylactic Need Against Influenza 02/20/2010 240.9 GOIT ER UNSPECIFIED 02/20/2010 782.0 Dist urbance Of Skin Sensation 02/20/2010 RIAZ REAL DO K 240.9 GOITER UNSPECIFIED 02/20/2010 RIAZ REAL DO 782.0 Disturbance Of Skin Sensation 02/20/2010 240.9 GOIT ER UNSPECIFIED 02/20/2010 782.0 Dist urbance Of Skin Sensation 02/20/2010 240.9 GOIT ER UNSPECIFIED 02/20/2010 782.0 Dist urbance Of Skin Sensation 02/20/2010 240.9 GOIT ER UNSPECIFIED 02/20/2010 782.0 Dist urbance Of Skin Sensation 02/20/2010 240.9 GOIT ER UNSPECIFIED 02/20/2010 782.0 Dist urbance Of Skin Sensation 02/20/2010 240.9 GOIT ER UNSPECIFIED 02/20/2010 782.0 Dist urbance Of Skin Sensation 02/20/2010 240.9 GOIT ER UNSPECIFIED 02/20/2010 782.0 Dist urbance Of Skin Sensation 02/20/2010 MARIO INTEGRATED LOGISTICS SUPPORT MANAGER, CHERRY T 24 0.9 GOITER UNSPECIFIED 02/20/2010 MARIO INTEGRATED LOGISTICS SUPPORT MANAGER, CHERRY T 78 2.0 Disturbance Of Skin Sensation 02/20/2010 MARIO INTEGRATED LOGISTICS SUPPORT MANAGER, CHERRY T 24 0.9 GOITER UNSPECIFIED 02/20/2010 MARIO INTEGRATED LOGISTICS SUPPORT MANAGER, CHERRY T 78 2.0 Disturbance Of Skin Sensation 02/20/2010 MARIO INTEGRATED LOGISTICS SUPPORT MANAGER, CHERRY T 24 0.9 GOITER UNSPECIFIED 02/20/2010 MARIO INTEGRATED LOGISTICS SUPPORT MANAGER, CHERRY T 78 2.0 Disturbance Of Skin Sensation 02/20/2010 MARIO INTEGRATED LOGISTICS SUPPORT MANAGER, CHERRY T 24 0.9 GOITER UNSPECIFIED 02/20/2010 MARIO INTEGRATED LOGISTICS SUPPORT MANAGER, CHERRY T 78 2.0 Disturbance Of Skin Sensation 02/20/2010 MARIO INTEGRATED LOGISTICS SUPPORT MANAGER, CHERRY T 24 0.9 GOITER UNSPECIFIED 02/20/2010 MARIO INTEGRATED LOGISTICS SUPPORT MANAGER, CHERRY T 78 2.0 Disturbance Of Skin Sensation 02/20/2010 MARIO INTEGRATED LOGISTICS SUPPORT MANAGER, CHERRY T 24 0.9 GOITER UNSPECIFIED 02/20/2010 MARIO INTEGRATED LOGISTICS SUPPORT MANAGER, CHRERY T 78 2.0 Disturbance Of Skin Sensation 02/20/2010 MARIO INTEGRATED LOGISTICS SUPPORT MANAGER, CHERRY T 24 0.9 GOITER UNSPECIFIED 02/20/2010 MARIO INTEGRATED LOGISTICS SUPPORT MANAGER, CHERRY T 78 2.0 Disturbance Of Skin Sensation 03/31/2010 465.9 Uppe r Respiratory Infection 03/31/2010 786.2 Cough 03/31/2010 RIAZ REAL DO 465.9 Upper Respiratory Infection 03/31/2010 REAL DORIAZ 786.2 Cough 03/31/2010 465.9 Uppe r Respiratory Infection 03/31/2010 786.2 Cough 03/31/2010 465.9 Uppe r Respiratory Infection 03/31/2010 786.2 Cough 03/31/2010 465.9 Uppe r Respiratory Infection 03/31/2010 786.2 Cough 03/31/2010 465.9 Uppe r Respiratory Infection 03/31/2010 786.2 Cough 03/31/2010 465.9 Uppe r Respiratory Infection 03/31/2010 786.2 Cough 03/31/2010 465.9 Uppe r Respiratory Infection 03/31/2010 786.2 Cough 03/31/2010 MARIO CALDERÓN CHERRY T 46 5.9 Upper Respiratory Infection 03/31/2010 MARIO CALDERÓN, CHERRY T 78 6.2 Cough 03/31/2010 MARIO CALDERÓN CHERRY T 46 5.9 Upper Respiratory Infection 03/31/2010 MARIO INTEGRATED LOGISTICS SUPPORT MANAGER, CHERRY T 78 6.2 Cough 03/31/2010 MARIO INTEGRATED LOGISTICS SUPPORT MANAGER, CHERRY T 46 5.9 Upper Respiratory Infection 03/31/2010 MARIO INTEGRATED LOGISTICS SUPPORT MANAGER, CHERRY T 78 6.2 Cough 03/31/2010 MARIO INTEGRATED LOGISTICS SUPPORT MANAGER, CHERRY T 46 5.9 Upper Respiratory Infection 03/31/2010 MARIO INTEGRATED LOGISTICS SUPPORT MANAGER, CHERRY T 78 6.2 Cough 03/31/2010 MARIO INTEGRATED LOGISTICS SUPPORT MANAGER, CHERRY T 46 5.9 Upper Respiratory Infection 03/31/2010 MARIO INTEGRATED LOGISTICS SUPPORT MANAGER, CHERRY T 78 6.2 Cough 03/31/2010 MARIO INTEGRATED LOGISTICS SUPPORT MANAGER, CHERRY T 46 5.9 Upper Respiratory Infection 03/31/2010 MARIO INTEGRATED LOGISTICS SUPPORT MANAGER, CHERRY T 78 6.2 Cough 03/31/2010 MARIO INTEGRATED LOGISTICS SUPPORT MANAGER, CHERRY T 46 5.9 Upper Respiratory Infection 03/31/2010 MARIO INTEGRATED LOGISTICS SUPPORT MANAGER, CHERRY T 78 6.2 Cough 04/17/2010 466.0 Bron chitis, Acute 04/17/2010 RIAZ REAL DO 466.0 Bronchitis, Acute 04/17/2010 466.0 Bron chitis, Acute 04/17/2010 466.0 Bron chitis, Acute 04/17/2010 466.0 Bron chitis, Acute 04/17/2010 466.0 Bron chitis, Acute 04/17/2010 466.0 Bron chitis, Acute 04/17/2010 466.0 Bron chitis, Acute 04/17/2010 MARIO INTEGRATED LOGISTICS SUPPORT MANAGER, CHERRY T 46 6.0 Bronchitis, Acute 04/17/2010 MARIO INTEGRATED LOGISTICS SUPPORT MANAGER, CHERRY T 46 6.0 Bronchitis, Acute 04/17/2010 MARIO INTEGRATED LOGISTICS SUPPORT MANAGER, CHERRY T 46 6.0 Bronchitis, Acute 04/17/2010 MARIO INTEGRATED LOGISTICS SUPPORT MANAGER, CHERRY T 46 6.0 Bronchitis, Acute 04/17/2010 MARIO INTEGRATED LOGISTICS SUPPORT MANAGER, CHERRY T 46 6.0 Bronchitis, Acute 04/17/2010 MARIO INTEGRATED LOGISTICS SUPPORT MANAGER, CHERRY T 46 6.0 Bronchitis, Acute 04/17/2010 MARIO INTEGRATED LOGISTICS SUPPORT MANAGER, CHERRY T 46 6.0 Bronchitis, Acute 04/26/2010 Ot 491.9 04/26/2010 Ot 786.2 09/14/2010 719.45 cande nt pain, localized in the hip 09/14/2010 RIAZ REAL DO 719.45 joint pain, localized in the hip 09/14/2010 719.45 cande nt pain, localized in the hip 09/14/2010 719.45 cande nt pain, localized in the hip 09/14/2010 719.45 cande nt pain, localized in the hip 09/14/2010 719.45 cande nt pain, localized in the hip 09/14/2010 719.45 cande nt pain, localized in the hip 09/14/2010 719.45 cande nt pain, localized in the hip 09/14/2010 MARIO INTEGRATED LOGISTICS SUPPORT MANAGER, CHERRY T 719.45 joint pain, localized in the hip 09/14/2010 MARIO INTEGRATED LOGISTICS SUPPORT MANAGER, CHERRY T 719.45 joint pain, localized in the hip 09/14/2010 MARIO INTEGRATED LOGISTICS SUPPORT MANAGER, CHERRY T 719.45 joint pain, localized in the hip 09/14/2010 MARIO INTEGRATED LOGISTICS SUPPORT MANAGER, CHERRY T 719.45 joint pain, localized in the hip 09/14/2010 MARIO INTEGRATED LOGISTICS SUPPORT MANAGER, CHERRY T 719.45 JOINT PAIN, LOCALIZED IN THE HIP 09/14/2010 MARIO INTEGRATED LOGISTICS SUPPORT MANAGER, CHERRY T 719.45 JOINT PAIN, LOCALIZED IN THE HIP 09/14/2010 MARIO INTEGRATED LOGISTICS SUPPORT MANAGER, CHERRY T 719.45 JOINT PAIN, LOCALIZED IN THE HIP 01/08/2012 250.02 RAFIA BETES II UNCONTROLLED (UNCOMPLICATED) 01/08/2012 V04.81 FLU DX (3 YRS AND ABOVE, IM) 01/08/2012 RIAZ REAL DO 250.02 DIABETES II UNCONTROLLED (UNCOMPLICATED) 01/08/2012 RIAZ REAL DO V04.81 FLU DX (3 YRS AND ABOVE, IM) 01/08/2012 250.02 RAFIA BETES II UNCONTROLLED (UNCOMPLICATED) 01/08/2012 V04.81 FLU DX (3 YRS AND ABOVE, IM) 01/08/2012 250.02 RAFIA BETES II UNCONTROLLED (UNCOMPLICATED) 01/08/2012 V04.81 FLU DX (3 YRS AND ABOVE, IM) 01/08/2012 250.02 RAFIA BETES II UNCONTROLLED (UNCOMPLICATED) 01/08/2012 V04.81 FLU DX (3 YRS AND ABOVE, IM) 01/08/2012 250.02 RAFIA BETES II UNCONTROLLED (UNCOMPLICATED) 01/08/2012 V04.81 FLU DX (3 YRS AND ABOVE, IM) 01/08/2012 250.02 RAFIA BETES II UNCONTROLLED (UNCOMPLICATED) 01/08/2012 V04.81 FLU DX (3 YRS AND ABOVE, IM) 01/08/2012 250.02 RAFIA BETES II UNCONTROLLED (UNCOMPLICATED) 01/08/2012 V04.81 FLU DX (3 YRS AND ABOVE, IM) 01/08/2012 CHERRY MARTIN APRN 250.02 DIABETES II UNCONTROLLED (UNCOMPLICATED) 01/08/2012 CHERRY MARTIN APRN T V04.81 FLU DX (3 YRS AND ABOVE, IM) 01/08/2012 CHERRY MARTIN APRN T 250.02 DIABETES II UNCONTROLLED (UNCOMPLICATED) 01/08/2012 CHERRY MARTIN APRN T V04.81 FLU DX (3 YRS AND ABOVE, IM) 01/08/2012 CHERRY MARTIN APRN T 250.02 DIABETES II UNCONTROLLED (UNCOMPLICATED) 01/08/2012 CHERRY MARTIN APRN T V04.81 FLU DX (3 YRS AND ABOVE, IM) 01/08/2012 CHERRY MARTIN APRN T 250.02 DIABETES II UNCONTROLLED (UNCOMPLICATED) 01/08/2012 CHERRY MARTIN APRN T V04.81 FLU DX (3 YRS AND ABOVE, IM) 01/08/2012 CHERRY MARTIN APRN T 250.02 DIABETES II UNCONTROLLED (UNCOMPLICATED) 01/08/2012 CHERRY MARTIN APRN T V04.81 FLU DX (3 YRS AND ABOVE, IM) 01/08/2012 CHERRY MARTIN APRN T 250.02 DIABETES II UNCONTROLLED (UNCOMPLICATED) 01/08/2012 CHERRY MARTIN APRN T V04.81 FLU DX (3 YRS AND ABOVE, IM) 01/08/2012 CHERRY MARTIN APRN T 250.02 DIABETES II UNCONTROLLED (UNCOMPLICATED) 01/08/2012 CHERRY MARTIN APRN T V04.81 FLU DX (3 YRS AND ABOVE, IM) 05/23/2012 466.0 BRON CHITIS, ACUTE 05/23/2012 466.0 BRON CHITIS, ACUTE 05/23/2012 466.0 BRON CHITIS, ACUTE 05/23/2012 466.0 BRON CHITIS, ACUTE 05/23/2012 466.0 BRON CHITIS, ACUTE 05/23/2012 466.0 BRON CHITIS, ACUTE 05/23/2012 CHERRY MARTIN APRN T 46 6.0 BRONCHITIS, ACUTE 05/23/2012 CHERRY MARTIN APRN T 46 6.0 BRONCHITIS, ACUTE 05/23/2012 CHERRY MARTIN APRN 46 6.0 BRONCHITIS, ACUTE 05/23/2012 CHERRY MARTIN APRN T 46 6.0 BRONCHITIS, ACUTE 05/23/2012 CHERRY MARTIN APRN 46 6.0 BRONCHITIS, ACUTE 05/23/2012 CHERRY MARTIN APRN 46 6.0 BRONCHITIS, ACUTE 05/23/2012 CHERRY MARTIN APRN T 46 6.0 BRONCHITIS, ACUTE 06/24/2012 719.46 ISABEL N IN JOINT INVOLVING LOWER LEG 06/24/2012 719.46 ISABEL N IN JOINT INVOLVING LOWER LEG 06/24/2012 719.46 ISABEL N IN JOINT INVOLVING LOWER LEG 06/24/2012 719.46 ISABEL N IN JOINT INVOLVING LOWER LEG 06/24/2012 719.46 ISABEL N IN JOINT INVOLVING LOWER LEG 06/24/2012 CHERRY [...] IN JOINT INVOLVING LOWER LEG 08/01/2012 461.9 SINU SITIS ACUTE 08/01/2012 461.9 SINU SITIS ACUTE 08/01/2012 461.9 SINU SITIS ACUTE 08/01/2012 CHERRY MARTIN APRN T 46 1.9 SINUSITIS ACUTE 08/01/2012 CHERRY MARTIN APRN T 46 1.9 SINUSITIS ACUTE 08/01/2012 CHERRY MARTIN APRN T 46 1.9 SINUSITIS ACUTE 08/01/2012 CHERRY MARTIN APRN T 46 1.9 SINUSITIS ACUTE 08/01/2012 CHERRY MARTIN APRN T 46 1.9 SINUSITIS ACUTE 08/01/2012 CHERRY MARTIN APRN T 46 1.9 SINUSITIS ACUTE 08/01/2012 CHERRY MARTIN APRN T 46 1.9 SINUSITIS ACUTE 04/09/2014 CHERRY OLIVER DO Ot 723.1 04/09/2014 CHERRY OLIVER DO Ot 723.5 04/12/2014 FATIMAH VICK Ot 307.81 04/12/2014 FATIMAH VICK Ot 723.4 04/12/2014 FATIMAH VICK Ot 782.0 04/14/2014 CHERRY MARTIN APRN T 72 3.1 PAIN NECK 04/14/2014 CHERRY MARTIN APRN 72 3.1 PAIN NECK 08/14/2014 LISS BAGLEY INTEGRATED LOGISTICS SUPPORT MANAGER Ot 599 .0 08/14/2014 LISS BAGLEY INTEGRATED LOGISTICS SUPPORT MANAGER Ot 789.06 10/01/2014 FATIMAH VICK Ot 250.00 10/01/2014 FATIMAH VICK Ot 788.1 10/01/2014 FATIMAH VICK Ot 789.09 10/01/2014 FATIMAH VICK Ot V58.69 01/12/2015 LISS BAGLEY APRN Ot N39 .0 01/12/2015 LISS BAGLEY APRN Ot R11 .0 01/12/2015 LISS BAGLEY INTEGRATED LOGISTICS SUPPORT MANAGER Ot R51 07/14/2015 YADIRA WHITEHEAD MD T Ot E11.9 TYPE 2 DIABETES MELLITUS WITHOUT COMPLIC 07/14/2015 YADIRA WHITEHEAD MD T Ot K59.00 CONSTIPATION, UNSPECIFIED 07/14/2015 YADIRA WHITEHEAD MD Ot N39.0 URINARY TRACT INFECTION, SITE NOT SPECIF 07/14/2015 YADIRA WHITEHEAD MD Ot Z79.4 MCC (CURRENT) USE OF INSULIN 08/22/2015 LISS BAGLEY INTEGRATED LOGISTICS SUPPORT MANAGER Ot R10.12 LEFT UPPER QUADRANT PAIN 08/22/2015 LISS BAGLEY INTEGRATED LOGISTICS SUPPORT MANAGER Ot R11.10 VOMITING, UNSPECIFIED 08/24/2015 LISS BAGLEY INTEGRATED LOGISTICS SUPPORT MANAGER Ot R10.12 LEFT UPPER QUADRANT PAIN 08/24/2015 LISS BAGLEY INTEGRATED LOGISTICS SUPPORT MANAGER Ot R11.10 VOMITING, UNSPECIFIED 11/27/2015 FATIMAH VICK Ot E11.9 TYPE 2 DIABETES MELLITUS WITHOUT COMPLIC 11/27/2015 FATIMAH VICK Ot N39.0 URINARY TRACT INFECTION, SITE NOT SPECIF 11/27/2015 FATIMAH VICK Ot R30.0 DYSURIA 11/27/2015 FATIMAH VICK Ot Z79.4 MCC (CURRENT) USE OF INSULIN 11/29/2015 FATIMAH VICK Ot E11.9 TYPE 2 DIABETES MELLITUS WITHOUT COMPLIC 11/29/2015 FATIMAH VICK Ot N39.0 URINARY TRACT INFECTION, SITE NOT SPECIF 11/29/2015 FATIMAH VICK L Ot R30.0 DYSURIA 11/29/2015 FATIMAH VICK L Ot Z79.4 NEGATIVE CUTTER (CURRENT) USE OF INSULIN 11/29/2015 FATIMAH VICK Ot E11.9 TYPE 2 DIABETES MELLITUS WITHOUT COMPLIC 11/29/2015 FATIMAH VICK L Ot N39.0 URINARY TRACT INFECTION, SITE NOT SPECIF 11/29/2015 FATIMAH VICK L Ot R30.0 DYSURIA 11/29/2015 FATIMAH VICK Ot Z79.4 MCC (CURRENT) USE OF INSULIN 11/30/2015 FATIMAH VICK Ot E11.9 TYPE 2 DIABETES MELLITUS WITHOUT COMPLIC 11/30/2015 FATIMAH VICK L Ot N39.0 URINARY TRACT INFECTION, SITE NOT SPECIF 11/30/2015 FATIMAH VICK L Ot R30.0 DYSURIA 11/30/2015 FATIMAH VICK Ot Z79.4 MCC (CURRENT) USE OF INSULIN 12/13/2015 FATIMAH VICK Ot E11.9 TYPE 2 DIABETES MELLITUS WITHOUT COMPLIC 12/13/2015 FATIMAH VICK Ot N39.0 URINARY TRACT INFECTION, SITE NOT SPECIF 12/13/2015 FATIMAH VICK L Ot R10.84 GENERALIZED ABDOMINAL PAIN 12/13/2015 FATIMAH VICK Ot R11.0 NAUSEA 12/13/2015 FATIMAH VICK L Ot R14.0 ABDOMINAL DISTENSION (GASEOUS) 12/13/2015 FATIMAH VICK L Ot Z79.4 MCC (CURRENT) USE OF INSULIN 12/14/2015 FATIMAH VICK Ot E11.9 TYPE 2 DIABETES MELLITUS WITHOUT COMPLIC 12/14/2015 FATIMAH VICK L Ot N39.0 URINARY TRACT INFECTION, SITE NOT SPECIF 12/14/2015 FATIMAH VICK L Ot R10.84 GENERALIZED ABDOMINAL PAIN 12/14/2015 FATIMAH VICK L Ot R11.0 NAUSEA 12/14/2015 FATIMAH VICK L Ot R14.0 ABDOMINAL DISTENSION (GASEOUS) 12/14/2015 FATIMAH VICK Ot Z79.4 NEGATIVE CUTTER (CURRENT) USE OF INSULIN 12/19/2015 CHERRY MARTIN CONTINUOUS IMPROVEMENT LEAD Ot R10.11 RIGHT UPPER QUADRANT PAIN 12/21/2015 CHERRY MARTIN CONTINUOUS IMPROVEMENT LEAD Ot R10.11 RIGHT UPPER QUADRANT PAIN 12/30/2015 CHERRY MARTIN CONTINUOUS IMPROVEMENT LEAD Ot R10.11 RIGHT UPPER QUADRANT PAIN 01/26/2016 FATIMAH VICK Ot E11.9 TYPE 2 DIABETES MELLITUS WITHOUT COMPLIC 01/26/2016 FATIMAH VICK Ot N39.0 URINARY TRACT INFECTION, SITE NOT SPECIF 01/26/2016 FATIMAH VICK Ot R10.84 GENERALIZED ABDOMINAL PAIN 01/26/2016 FATIMAH VICK Ot R11.0 NAUSEA 01/26/2016 FATIMAH VICK Ot R14.0 ABDOMINAL DISTENSION (GASEOUS) 01/26/2016 FATIMAH VICK Ot Z79.4 NEGATIVE CUTTER (CURRENT) USE OF INSULIN 02/16/2016 CHERRY MARTIN CONTINUOUS IMPROVEMENT LEAD Ot R10.11 RIGHT UPPER QUADRANT PAIN 02/16/2016 CHERRY MARTINP Ot R10.11 RIGHT UPPER QUADRANT PAIN 02/17/2016 ADRIENNE BRITTON DO Ot K21. 9 GASTRO-ESOPHAGEAL REFLUX DISEASE WITHOUT 02/17/2016 ADRIENNE BRITTON DO Ot Z01.818 ENCOUNTER FOR OTHER PREPROCEDURAL EXAMIN 02/22/2016 ADRIENNE BRITTON DO Ot E11. 9 TYPE 2 DIABETES MELLITUS WITHOUT COMPLIC 02/22/2016 ADRIENNE BRITTON DO Ot K29. 70 GASTRITIS, UNSPECIFIED, WITHOUT BLEEDING 02/22/2016 ADRIENNE BRITTON DO D Ot K44. 9 DIAPHRAGMATIC HERNIA WITHOUT OBSTRUCTION 02/22/2016 ADRIENNE BRITTON DO Ot Z79. 84 NEGATIVE CUTTER (CURRENT) USE OF ORAL HYPOGLYC 03/03/2016 ELSY DO NOEL K Ot E11.9 TYPE 2 DIABETES MELLITUS WITHOUT COMPLIC 03/03/2016 ELSY DO NOEL K Ot J02.9 ACUTE PHARYNGITIS, UNSPECIFIED 03/03/2016 ELSY DO NOEL K Ot R05 COUGH 03/03/2016 ELSY CHAVEZ NOEL K Ot Z79.4 NEGATIVE CUTTER (CURRENT) USE OF INSULIN 03/03/2016 ELSY DO, NOEL K Ot Z79.84 MCC (CURRENT) USE OF ORAL HYPOGLYC 03/06/2016 ELSY DO, NOEL K Ot E11.9 TYPE 2 DIABETES MELLITUS WITHOUT COMPLIC 03/06/2016 ELSY DO, NOEL K Ot J02.9 ACUTE PHARYNGITIS, UNSPECIFIED 03/06/2016 ELSY DO, NOEL K Ot R05 COUGH 03/06/2016 ELSY DO, NOEL K Ot Z79.4 MCC (CURRENT) USE OF INSULIN 03/06/2016 ELSY DO, NOEL K Ot Z79.84 MCC (CURRENT) USE OF ORAL HYPOGLYC 03/08/2016 BRITTON DO, ADRIENNE D Ot E11. 9 TYPE 2 DIABETES MELLITUS WITHOUT COMPLIC 03/08/2016 BRITTON DO, ADRIENNE D Ot K29. 70 GASTRITIS, UNSPECIFIED, WITHOUT BLEEDING 03/08/2016 BRITTON DO ADRIENNE D Ot K44. 9 DIAPHRAGMATIC HERNIA WITHOUT OBSTRUCTION 03/08/2016 BRITTON DO ADRIENNE D Ot Z79. 84 MCC (CURRENT) USE OF ORAL HYPOGLYC 03/10/2016 LISS BAGLEY INTEGRATED LOGISTICS SUPPORT MANAGER Ot E11 .9 TYPE 2 DIABETES MELLITUS WITHOUT COMPLIC 03/10/2016 LISS BAGLEY INTEGRATED LOGISTICS SUPPORT MANAGER Ot I10 ESSENTIAL (PRIMARY) HYPERTENSION 03/10/2016 LISS BAGLEY INTEGRATED LOGISTICS SUPPORT MANAGER Ot J40 BRONCHITIS, NOT SPECIFIED ACUTE OR CH 03/10/2016 LISS BAGLEY APRN Ot R05 COUGH 03/10/2016 LISS BAGLEY INTEGRATED LOGISTICS SUPPORT MANAGER Ot Z79 .4 MCC (CURRENT) USE OF INSULIN 03/10/2016 LISS BAGLEY INTEGRATED LOGISTICS SUPPORT MANAGER Ot Z79.84 MCC (CURRENT) USE OF ORAL HYPOGLYC 03/10/2016 LISS BAGLEY APRN Ot Z79.899 OTHER NEGATIVE CUTTER (CURRENT) DRUG THERAPY 03/13/2016 BRITTON DO ADRIENNE D Ot E11. 9 TYPE 2 DIABETES MELLITUS WITHOUT COMPLIC 03/13/2016 REBA CHAVEZ ADRIENNE D Ot K29. 70 GASTRITIS, UNSPECIFIED, WITHOUT BLEEDING 03/13/2016 BRITTON DO ADRIENNE D Ot K44. 9 DIAPHRAGMATIC HERNIA WITHOUT OBSTRUCTION 03/13/2016 BRITTON DO ADRIENNE D Ot Z79. 84 NEGATIVE CUTTER (CURRENT) USE OF ORAL HYPOGLYC 03/14/2016 LISS BAGLEY INTE[employer]ATED LOGISTICS SUPPORT MANAGER Ot E11 .9 TYPE 2 DIABETES MELLITUS WITHOUT COMPLIC 03/14/2016 LISS BAGLEY INTEGRATED LOGISTICS SUPPORT MANAGER Ot I10 ESSENTIAL (PRIMARY) HYPERTENSION 03/14/2016 LISS BAGLEY INTEGRATED LOGISTICS SUPPORT MANAGER Ot J40 BRONCHITIS, NOT SPECIFIED ACUTE OR CH 03/14/2016 LISS BAGLEY INTEGRATED LOGISTICS SUPPORT MANAGER Ot R05 COUGH 03/14/2016 LISS BAGLEY INTEGRATED LOGISTICS SUPPORT MANAGER Ot Z79 .4 NEGATIVE CUTTER (CURRENT) USE OF INSULIN 03/14/2016 LISS BAGLEY INTEGRATED LOGISTICS SUPPORT MANAGER Ot Z79.84 NEGATIVE CUTTER (CURRENT) USE OF ORAL HYPOGLYC 03/14/2016 LISS BAGLEY INTEGRATED LOGISTICS SUPPORT MANAGER Ot Z79.899 OTHER NEGATIVE CUTTER (CURRENT) DRUG THERAPY 04/05/2016 WILEY AMBRIZ MD Ot E11.9 TYPE 2 DIABETES MELLITUS WITHOUT COMPLIC 04/05/2016 WILEY AMBRIZ MD, Ot J40 BRONCHITIS, NOT SPECIFIED ACUTE OR CH 04/05/2016 WILEY AMBRIZ MD Ot K44.9 DIAPHRAGMATIC HERNIA WITHOUT OBSTRUCTION 04/05/2016 WILEY AMBRIZ MD Ot R10.10 UPPER ABDOMINAL PAIN, UNSPECIFIED 04/05/2016 WILEY AMBRIZ MD Ot R10.13 EPIGASTRIC PAIN 04/05/2016 WILEY AMBRIZ MD Ot Z79.4 MCC (CURRENT) USE OF INSULIN 04/05/2016 WILEY AMBRIZ MD Ot Z79.84 NEGATIVE CUTTER (CURRENT) USE OF ORAL HYPOGLYC 04/05/2016 WILEY AMBRIZ MD Ot Z79.899 OTHER NEGATIVE CUTTER (CURRENT) DRUG THERAPY 04/05/2016 WILEY AMBRIZ MD Ot E11.9 TYPE 2 DIABETES MELLITUS WITHOUT COMPLIC 04/05/2016 WILEY AMBRIZ MD Ot J40 BRONCHITIS, NOT SPECIFIED ACUTE OR CH 04/05/2016 WILEY AMBRIZ MD Ot K44.9 DIAPHRAGMATIC HERNIA WITHOUT OBSTRUCTION 04/05/2016 WILEY AMBRIZ MD Ot R10.10 UPPER ABDOMINAL PAIN, UNSPECIFIED 04/05/2016 WILEY AMBRIZ MD Ot R10.13 EPIGASTRIC PAIN 04/05/2016 WILEY AMBRIZ MD Ot Z79.4 MCC (CURRENT) USE OF INSULIN 04/05/2016 WILEY AMBRIZ MD Ot Z79.84 MCC (CURRENT) USE OF ORAL HYPOGLYC 04/05/2016 WILEY AMBRIZ MD Ot Z79.899 OTHER NEGATIVE CUTTER (CURRENT) DRUG THERAPY 04/16/2016 LISS BAGLEY APRN Ot E11 .9 TYPE 2 DIABETES MELLITUS WITHOUT COMPLIC 04/16/2016 LISS BAGLEY APRN Ot J40 BRONCHITIS, NOT SPECIFIED ACUTE OR CH 04/16/2016 LISS BAGLEY APRN Ot J45.909 UNSPECIFIED ASTHMA, UNCOMPLICATED 04/16/2016 LISS BAGLEY APRN Ot Z79.84 NEGATIVE CUTTER (CURRENT) USE OF ORAL HYPOGLYC 04/16/2016 LISS BAGLEY APRN Ot Z79.899 OTHER NEGATIVE CUTTER (CURRENT) DRUG THERAPY 04/17/2016 LISS BAGLEY APRN Ot E11 .9 TYPE 2 DIABETES MELLITUS WITHOUT COMPLIC 04/17/2016 LISS BAGLEY APRN Ot J40 BRONCHITIS, NOT SPECIFIED ACUTE OR CH 04/17/2016 LISS BAGLEY APRN Ot J45.909 UNSPECIFIED ASTHMA, UNCOMPLICATED 04/17/2016 LISS BAGLEY APRN Ot Z79.84 NEGATIVE CUTTER (CURRENT) USE OF ORAL HYPOGLYC 04/17/2016 LISS BAGLEY APRN Ot Z79.899 OTHER NEGATIVE CUTTER (CURRENT) DRUG THERAPY 04/23/2016 WILEY AMBRIZ MD Ot E11.65 TYPE 2 DIABETES MELLITUS WITH HYPERGLYCE 04/23/2016 WILEY AMBRIZ MD Ot K44.9 DIAPHRAGMATIC HERNIA WITHOUT OBSTRUCTION 04/23/2016 WILEY AMBRIZ MD Ot R10.13 EPIGASTRIC PAIN 04/23/2016 WILEY AMBRIZ MD Ot R11.2 NAUSEA WITH VOMITING, UNSPECIFIED 04/23/2016 WILEY AMBRIZ MD Ot Z79.4 MCC (CURRENT) USE OF INSULIN 04/23/2016 WILEY AMBRIZ MD Ot Z79.84 NEGATIVE CUTTER (CURRENT) USE OF ORAL HYPOGLYC 04/23/2016 WILEY AMBRIZ MD Ot Z79.899 OTHER MCC (CURRENT) DRUG THERAPY 04/23/2016 WILEY AMBRIZ MD, Ot E11.65 TYPE 2 DIABETES MELLITUS WITH HYPERGLYCE 04/23/2016 KATINA MD, WILEY D Ot K44.9 DIAPHRAGMATIC HERNIA WITHOUT OBSTRUCTION 04/23/2016 WILEY AMBRIZ MD Ot R10.13 EPIGASTRIC PAIN 04/23/2016 WILEY AMBRIZ MD Ot R11.2 NAUSEA WITH VOMITING, UNSPECIFIED 04/23/2016 WILEY AMBRIZ MD Ot Z79.4 NEGATIVE CUTTER (CURRENT) USE OF INSULIN 04/23/2016 WILEY AMBRIZ MD Ot Z79.84 NEGATIVE CUTTER (CURRENT) USE OF ORAL HYPOGLYC 04/23/2016 WILEY AMBRIZ MD Ot Z79.899 OTHER NEGATIVE CUTTER (CURRENT) DRUG THERAPY 04/27/2016 WILEY AMBRIZ MD Ot E11.65 TYPE 2 DIABETES MELLITUS WITH HYPERGLYCE 04/27/2016 WILEY AMBRIZ MD, Ot K44.9 DIAPHRAGMATIC HERNIA WITHOUT OBSTRUCTION 04/27/2016 WILEY AMBRIZ MD Ot R10.13 EPIGASTRIC PAIN 04/27/2016 WILEY AMBRIZ MD Ot R11.2 NAUSEA WITH VOMITING, UNSPECIFIED 04/27/2016 WILEY AMBRIZ MD Ot Z79.4 NEGATIVE CUTTER (CURRENT) USE OF INSULIN 04/27/2016 WILEY AMBRIZ MD Ot Z79.84 NEGATIVE CUTTER (CURRENT) USE OF ORAL HYPOGLYC 04/27/2016 WILEY AMBRIZ MD, Ot Z79.899 OTHER MCC (CURRENT) DRUG THERAPY 05/24/2016 CASSANDRA VELASCO INTEGRATED LOGISTICS SUPPORT MANAGER Ot J45.909 UNSPECIFIED ASTHMA, UNCOMPLICATED 05/24/2016 CASSANDRA VELASCO INTE[employer]ATED LOGISTICS SUPPORT MANAGER Ot R05 COUGH 05/24/2016 CASSANDRA VELASCO INTEGRATED LOGISTICS SUPPORT MANAGER Ot R06.00 DYSPNEA, UNSPECIFIED 05/24/2016 CASSANDRA VELASCO INTEGRATED LOGISTICS SUPPORT MANAGER Ot J45.909 UNSPECIFIED ASTHMA, UNCOMPLICATED 05/24/2016 CASSANDRA VELASCO INTEGRATED LOGISTICS SUPPORT MANAGER Ot R05 COUGH 05/24/2016 CASSANDRA VELASCO INTEGRATED LOGISTICS SUPPORT MANAGER Ot R06.00 DYSPNEA, UNSPECIFIED 06/04/2016 CASSANDRA VELASCO INTEGRATED LOGISTICS SUPPORT MANAGER Ot J45.909 UNSPECIFIED ASTHMA, UNCOMPLICATED 06/04/2016 CASSANDRA VELASCO INTEGRATED LOGISTICS SUPPORT MANAGER Ot R05 COUGH 06/04/2016 CASSANDRA VELASCO INTEGRATED LOGISTICS SUPPORT MANAGER Ot R06.00 DYSPNEA, UNSPECIFIED 06/09/2016 VALERIE CAMPOVERDE MD R Ot E11.9 TYPE 2 DIABETES MELLITUS WITHOUT COMPLIC 06/09/2016 VALERIE CAMPOVERDE MD R Ot J45.9 09 UNSPECIFIED ASTHMA, UNCOMPLICATED 06/09/2016 VALERIE CAMPOVERDE MD R Ot K44.9 DIAPHRAGMATIC HERNIA WITHOUT OBSTRUCTION 06/09/2016 VALERIE CAMPOVERDE MD R Ot K56.7 ILEUS, UNSPECIFIED 06/09/2016 VALERIE CAMPOVERDE MD R Ot R10.1 3 EPIGASTRIC PAIN 06/09/2016 VALERIE CAMPOVERDE MD R Ot R11.2 NAUSEA WITH VOMITING, UNSPECIFIED 06/09/2016 VALERIE CAMPOVERDE MD R Ot Z79.4 MCC (CURRENT) USE OF INSULIN 06/09/2016 VALERIE CAMPOVERDE MD R Ot E11.9 TYPE 2 DIABETES MELLITUS WITHOUT COMPLIC 06/09/2016 VALERIE CAMPOVERDE MD R Ot J45.9 09 UNSPECIFIED ASTHMA, UNCOMPLICATED 06/09/2016 VALERIE CAMPOVERDE MD R Ot K44.9 DIAPHRAGMATIC HERNIA WITHOUT OBSTRUCTION 06/09/2016 VALERIE CAMPOVERDE MD R Ot K56.7 ILEUS, UNSPECIFIED 06/09/2016 VALERIE CAMPVOERDE MD R Ot R10.1 3 EPIGASTRIC PAIN 06/09/2016 VALERIE CAMPOVERDE MD R Ot R11.2 NAUSEA WITH VOMITING, UNSPECIFIED 06/09/2016 VALERIE CAMPOVERDE MD R Ot Z79.4 NEGATIVE CUTTER (CURRENT) USE OF INSULIN 07/18/2016 ADAN COLLIER [...] COLLIER MD Ot R13.10 DYSPHAGIA, UNSPECIFIED 07/24/2016 NANDO JONES, ADAN Betancourt Ot Z01.812 ENCOUNTER FOR PREPROCEDURAL LABORATORY E 07/24/2016 ADAN COLLIER MD Ot Z11.2 ENCOUNTER FOR SCREENING FOR OTHER BACTER 07/25/2016 CASSANDRA VELASCO INTEGRATED LOGISTICS SUPPORT MANAGER Ot J45.909 UNSPECIFIED ASTHMA, UNCOMPLICATED 07/25/2016 CASSANDRA VELASCO INTEGRATED LOGISTICS SUPPORT MANAGER Ot R05 COUGH 07/25/2016 CASSANDRA VELASCO INTEGRATED LOGISTICS SUPPORT MANAGER Ot R06.00 DYSPNEA, UNSPECIFIED 07/26/2016 ADAN COLLIER MD Ot E66.9 OBESITY, UNSPECIFIED 07/26/2016 ADAN COLLIER MD Ot E78.5 HYPERLIPIDEMIA, UNSPECIFIED 07/26/2016 ADAN COLLIER MD Ot J45.909 UNSPECIFIED ASTHMA, UNCOMPLICATED 07/26/2016 ADAN COLLIER MD Ot K21.9 GASTRO-ESOPHAGEAL REFLUX DISEASE WITHOUT 07/26/2016 ADAN COLLIER MD Ot Z68.34 BODY MASS INDEX (BMI) 34.0-34.9, ADULT 07/26/2016 ADAN COLLIER MD Ot Z79.899 OTHER NEGATIVE CUTTER (CURRENT) DRUG THERAPY 07/26/2016 ADAN COLLIER MD Ot E66.9 OBESITY, UNSPECIFIED 07/26/2016 ADAN COLLIER MD Ot E78.5 HYPERLIPIDEMIA, UNSPECIFIED 07/26/2016 ADAN COLLIER MD Ot J45.909 UNSPECIFIED ASTHMA, UNCOMPLICATED 07/26/2016 ADAN COLLIER MD Ot K21.9 GASTRO-ESOPHAGEAL REFLUX DISEASE WITHOUT 07/26/2016 ADAN COLLIER MD Ot Z68.34 BODY MASS INDEX (BMI) 34.0-34.9, ADULT 07/26/2016 ADAN COLLIER MD Ot Z79.899 OTHER NEGATIVE CUTTER (CURRENT) DRUG THERAPY 07/27/2016 ADAN COLLIER MD Ot E66.9 OBESITY, UNSPECIFIED 07/27/2016 ADAN COLLIER MD Ot E78.5 HYPERLIPIDEMIA, UNSPECIFIED 07/27/2016 ADAN COLLIER MD Ot J45.909 UNSPECIFIED ASTHMA, UNCOMPLICATED 07/27/2016 NANDO JONES, ADAN Betancourt Ot K21.9 GASTRO-ESOPHAGEAL REFLUX DISEASE WITHOUT 07/27/2016 NANDO JONES, ADAN Betancourt Ot Z68.34 BODY MASS INDEX (BMI) 34.0-34.9, ADULT 07/27/2016 NANDO JONES, ADAN Betancourt Ot Z79.899 OTHER NEGATIVE CUTTER (CURRENT) DRUG THERAPY 07/31/2016 ADAN COLLIER MD Ot E66.9 OBESITY, UNSPECIFIED 07/31/2016 ADAN COLLIER MD Ot E78.5 HYPERLIPIDEMIA, UNSPECIFIED 07/31/2016 NANDO JONES, ADAN Betancourt Ot J45.909 UNSPECIFIED ASTHMA, UNCOMPLICATED 07/31/2016 ADAN COLLIER MD Ot K21.9 GASTRO-ESOPHAGEAL REFLUX DISEASE WITHOUT 07/31/2016 ADAN COLLIER MD Ot Z68.34 BODY MASS INDEX (BMI) 34.0-34.9, ADULT 07/31/2016 ADAN COLLIER MD Ot Z79.899 OTHER NEGATIVE CUTTER (CURRENT) DRUG THERAPY 08/01/2016 ADAN COLLIER MD Ot E66.9 OBESITY, UNSPECIFIED 08/01/2016 ADAN COLLIER MD Ot E78.5 HYPERLIPIDEMIA, UNSPECIFIED 08/01/2016 ADAN COLLIER MD Ot J45.909 UNSPECIFIED ASTHMA, UNCOMPLICATED 08/01/2016 ADAN COLLIER MD Ot K21.9 GASTRO-ESOPHAGEAL REFLUX DISEASE WITHOUT 08/01/2016 ADAN COLLIER MD Ot Z68.34 BODY MASS INDEX (BMI) 34.0-34.9, ADULT 08/01/2016 ADAN COLLIER MD Ot Z79.899 OTHER NEGATIVE CUTTER (CURRENT) DRUG THERAPY 08/01/2016 ADAN COLLIER MD Ot D6 2 ACUTE POSTHEMORRHAGIC ANEMIA 08/01/2016 ADAN COLLIER MD Ot E11.9 TYPE 2 DIABETES MELLITUS WITHOUT COMPLIC 08/01/2016 ADAN COLLIER MD Ot E66.9 OBESITY, UNSPECIFIED 08/01/2016 ADAN COLLIER MD Ot E87.6 HYPOKALEMIA 08/01/2016 ADAN COLLIER MD Ot J98.11 ATELECTASIS 08/01/2016 ADAN COLLIER MD Ot K21.9 GASTRO-ESOPHAGEAL REFLUX DISEASE WITHOUT 08/01/2016 ADAN COLLIER MD Ot K44.9 DIAPHRAGMATIC HERNIA WITHOUT OBSTRUCTION 08/01/2016 ADAN COLLIER MD, Ot K56.7 ILEUS, UNSPECIFIED 08/01/2016 ADAN COLLIER MD Ot K59.00 CONSTIPATION, UNSPECIFIED 08/01/2016 ADAN COLLIER MD Ot Z68.34 BODY MASS INDEX (BMI) 34.0-34.9, ADULT 08/01/2016 ADAN COLLIER MD Ot Z79.4 MCC (CURRENT) USE OF INSULIN 08/01/2016 ADAN COLLIER MD, Ot Z82.49 FAMILY HX OF ISCHEM HEART DIS AND OTH DI 09/28/2016 CASSANDRA VELASCO APRN Ot J18.9 PNEUMONIA, UNSPECIFIED ORGANISM 12/03/2016 WILEY AMBRIZ MD Ot E11.9 TYPE 2 DIABETES MELLITUS WITHOUT COMPLIC 12/03/2016 WILEY AMBRIZ MD Ot E78.00 PURE HYPERCHOLESTEROLEMIA, UNSPECIFIED 12/03/2016 WILEY AMBRIZ MD, Ot J45.909 UNSPECIFIED ASTHMA, UNCOMPLICATED 12/03/2016 WILEY AMBRIZ MD, Ot K21.9 GASTRO-ESOPHAGEAL REFLUX DISEASE WITHOUT 12/03/2016 WILEY AMBRIZ MD, Ot M19.90 UNSPECIFIED OSTEOARTHRITIS, UNSPECIFIED 12/03/2016 WILEY AMBRIZ MD Ot N39.0 URINARY TRACT INFECTION, SITE NOT SPECIF 12/03/2016 WILEY AMBRIZ MD Ot R10.11 RIGHT UPPER QUADRANT PAIN 12/03/2016 WILEY AMBRIZ MD Ot Z79.4 NEGATIVE CUTTER (CURRENT) USE OF INSULIN 12/03/2016 WILEY AMBRIZ MD Ot Z79.84 MCC (CURRENT) USE OF ORAL HYPOGLYC 12/03/2016 WILEY AMBRIZ MD, Ot Z80.6 FAMILY HISTORY OF LEUKEMIA 12/03/2016 WILEY AMBRIZ MD, Ot Z82.49 FAMILY HX OF ISCHEM HEART DIS AND OTH DI 12/03/2016 WILEY AMBRIZ MD Ot Z87.19 PERSONAL HISTORY OF OTHER DISEASES OF TH 12/04/2016 WILEY AMBRIZ MD Ot E11.9 TYPE 2 DIABETES MELLITUS WITHOUT COMPLIC 12/04/2016 WILEY AMBRIZ MD, Ot E78.00 PURE HYPERCHOLESTEROLEMIA, UNSPECIFIED 12/04/2016 WILEY AMBRIZ MD, Ot J45.909 UNSPECIFIED ASTHMA, UNCOMPLICATED 12/04/2016 WILEY AMBRIZ MD, Ot K21.9 GASTRO-ESOPHAGEAL REFLUX DISEASE WITHOUT 12/04/2016 WILEY AMBRIZ MD, Ot M19.90 UNSPECIFIED OSTEOARTHRITIS, UNSPECIFIED 12/04/2016 WILEY AMBRIZ MD, Ot N39.0 URINARY TRACT INFECTION, SITE NOT SPECIF 12/04/2016 WILEY AMBRIZ MD, Ot R10.11 RIGHT UPPER QUADRANT PAIN 12/04/2016 WILEY AMBRIZ MD, Ot Z79.4 NEGATIVE CUTTER (CURRENT) USE OF INSULIN 12/04/2016 WILEY AMBRIZ MD, Ot Z79.84 NEGATIVE CUTTER (CURRENT) USE OF ORAL HYPOGLYC 12/04/2016 WILEY AMBRIZ MD, Ot Z80.6 FAMILY HISTORY OF LEUKEMIA 12/04/2016 WILEY AMBRIZ MD, Ot Z82.49 FAMILY HX OF ISCHEM HEART DIS AND OTH DI 12/04/2016 WILEY AMBRIZ MD, Ot Z87.19 PERSONAL HISTORY OF OTHER DISEASES OF TH 01/11/2017 ADAN COLLIER MD Ot D50.9 IRON [...] TYPE 2 DIABETES MELLITUS WITHOUT COMPLIC 01/14/2017 COLLIER MD, ADAN M Ot E78.00 PURE HYPERCHOLESTEROLEMIA, UNSPECIFIED 01/14/2017 NANDO JONES, ADAN Betancourt Ot K21.9 GASTRO-ESOPHAGEAL REFLUX DISEASE WITHOUT 01/14/2017 ADAN COLLIER MD Ot K22.2 ESOPHAGEAL OBSTRUCTION 01/14/2017 ADAN COLLIER MD Ot K44.9 DIAPHRAGMATIC HERNIA WITHOUT OBSTRUCTION 01/14/2017 ADAN COLLIER MD Ot K57.30 DVRTCLOS OF LG INT W/O PERFORATION OR AB 01/14/2017 ADAN COLLIER MD Ot K63.5 POLYP OF COLON 01/14/2017 ADAN COLLIER MD Ot Z79.4 NEGATIVE CUTTER (CURRENT) USE OF INSULIN 01/18/2017 ADAN COLLIER [...] LG INT W/O PERFORATION OR AB 01/18/2017 ADAN COLLIER MD Ot K63.5 POLYP OF COLON 01/18/2017 ADAN COLLIER MD Ot Z79.4 MCC (CURRENT) USE OF INSULIN 08/13/2017 CASSANDRA VELASCO INTEGRATED LOGISTICS SUPPORT MANAGER Ot J45.909 UNSPECIFIED ASTHMA, UNCOMPLICATED 08/13/2017 CASSANDRA VELASCO INTE[employer]ATED LOGISTICS SUPPORT MANAGER Ot R05 COUGH 08/13/2017 CASSANDRA VELASCO INTEGRATED LOGISTICS SUPPORT MANAGER Ot R06.00 DYSPNEA, UNSPECIFIED 08/13/2017 CASSANDRA VELASCO INTEGRATED LOGISTICS SUPPORT MANAGER Ot J18.9 PNEUMONIA, UNSPECIFIED ORGANISM 08/14/2017 CASSANDRA VELASCO INTEGRATED LOGISTICS SUPPORT MANAGER Ot J45.909 UNSPECIFIED ASTHMA, UNCOMPLICATED 08/14/2017 CASSANDRA VELASCO INTEGRATED LOGISTICS SUPPORT MANAGER Ot R05 COUGH 08/14/2017 CASSANDRA VELASCO INTEGRATED LOGISTICS SUPPORT MANAGER Ot R06.00 DYSPNEA, UNSPECIFIED 08/14/2017 CASSANDRA VELASCO INTEGRATED LOGISTICS SUPPORT MANAGER Ot J18.9 PNEUMONIA, UNSPECIFIED ORGANISM 08/15/2017 RENEA STAHL INTEGRATED LOGISTICS SUPPORT MANAGER Ot Z12.31 ENCNTR SCREEN MAMMOGRAM FOR MALIGNANT NE 08/20/2017 RENEA STAHL INTEGRATED LOGISTICS SUPPORT MANAGER Ot Z12.31 ENCNTR SCREEN MAMMOGRAM FOR MALIGNANT NE 09/09/2017 RENEA STAHL APRN Ot R92.8 OTH ABN AND INCONCLUSIVE FINDINGS ON DX 09/25/2017 RENEA STAHL APRN Ot R92.8 OTH ABN AND INCONCLUSIVE FINDINGS ON DX 10/04/2017 RENEA STAHL INTEGRATED LOGISTICS SUPPORT MANAGER Ot 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 10/04/2017 RENEA STAHL INTEGRATED LOGISTICS SUPPORT MANAGER Ot N60.22 FIBROADENOSIS OF LEFT BREAST 10/04/2017 RENEA STAHL INTEGRATED LOGISTICS SUPPORT MANAGER Ot N60.92 UNSPECIFIED BENIGN MAMMARY DYSPLASIA OF 10/04/2017 RENEA STAHL INTEGRATED LOGISTICS SUPPORT MANAGER Ot 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 10/04/2017 RENEA STAHL INTEGRATED LOGISTICS SUPPORT MANAGER Ot N60.22 FIBROADENOSIS OF LEFT BREAST 10/04/2017 RENEA STAHL INTEGRATED LOGISTICS SUPPORT MANAGER Ot N60.92 UNSPECIFIED BENIGN MAMMARY DYSPLASIA OF 10/20/2017 Ot E11.9 TYPE 2 DIABETES MELLITUS WITHOUT COMPLIC 10/20/2017 Ot E78.00 PUR E HYPERCHOLESTEROLEMIA, UNSPECIFIED 10/20/2017 Ot J45.909 UN SPECIFIED ASTHMA, UNCOMPLICATED 10/20/2017 Ot K21.9 MICHELLE RO-ESOPHAGEAL REFLUX DISEASE WITHOUT 10/20/2017 Ot N39.0 URIN ESTEFANIA TRACT INFECTION, SITE NOT SPECIF 10/20/2017 Ot Z79.4 NEGATIVE CUTTER (CURRENT) USE OF INSULIN 10/20/2017 Ot Z79.51 TAD G TERM (CURRENT) USE OF INHALED STERO 10/20/2017 Ot Z80.6 FAMI LY HISTORY OF LEUKEMIA 10/20/2017 Ot Z82.49 FAM MICHAEL HX OF ISCHEM HEART DIS AND OTH DI 10/20/2017 Ot Z87.19 PER VINCENT HISTORY OF OTHER DISEASES OF TH 10/20/2017 Ot Z87.440 PE RSONAL HISTORY OF URINARY (TRACT) INFE 10/20/2017 Ot Z88.0 KEVAN RGY STATUS TO PENICILLIN 10/20/2017 Ot Z88.8 KEVAN RGY STATUS TO OTH DRUG/MEDS/BIOL SUB 01/18/2018 CASSANDRA VELASCO APRN Ot J45.909 UNSPECIFIED ASTHMA, UNCOMPLICATED 01/18/2018 CASSANDRA VELASCO APRN Ot R05 COUGH 01/18/2018 CASSANDRA VELASCO APRN Ot R06.00 DYSPNEA, UNSPECIFIED 01/18/2018 CASSANDRA VELASCO APRN Ot J18.9 PNEUMONIA, UNSPECIFIED ORGANISM 01/18/2018 RENEA STAHL APRN Ot Z12.31 ENCNTR SCREEN MAMMOGRAM FOR MALIGNANT NE 01/18/2018 RENEA STAHL INTEGRATED LOGISTICS SUPPORT MANAGER Ot R92.8 OTH ABN AND INCONCLUSIVE FINDINGS ON DX 01/18/2018 RENEA STAHL APRN Ot 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 01/18/2018 RENEA STAHL APRN Ot N60.22 FIBROADENOSIS OF LEFT BREAST 01/18/2018 RENEA STAHL APRN Ot N60.92 UNSPECIFIED BENIGN MAMMARY DYSPLASIA OF 01/19/2018 NOEL CHIN DO Ot E11.9 TYPE 2 DIABETES MELLITUS WITHOUT COMPLIC 01/19/2018 ARRON CHIN DOA K Ot E78.00 PURE HYPERCHOLESTEROLEMIA, UNSPECIFIED 01/19/2018 ELSY CHAVEZ NOEL K Ot J45.909 UNSPECIFIED ASTHMA, UNCOMPLICATED 01/19/2018 ARRON CHIN DOA K Ot K21.9 GASTRO-ESOPHAGEAL REFLUX DISEASE WITHOUT 01/19/2018 ARRON CHIN DOA K Ot M25.461 EFFUSION, RIGHT KNEE 01/19/2018 ARRON CHIN DOA K Ot M25.561 PAIN IN RIGHT KNEE 01/19/2018 NOEL CHIN DO Ot Z79.4 NEGATIVE CUTTER (CURRENT) USE OF INSULIN 01/19/2018 ARRON CHIN DOA K Ot Z79.51 MCC (CURRENT) USE OF INHALED STERO 01/19/2018 NOEL CHIN DO Ot Z82.49 FAMILY HX OF ISCHEM HEART DIS AND OTH DI 01/19/2018 NOEL CHIN DO Ot Z87.440 PERSONAL HISTORY OF URINARY (TRACT) INFE 01/19/2018 ARRON CHIN DOA K Ot Z88.0 ALLERGY STATUS TO PENICILLIN 01/19/2018 ARRON CHIN DOA K Ot Z88.8 ALLERGY STATUS TO OTH DRUG/MEDS/BIOL SUB 01/22/2018 CASSANDRA VELASCO APRN Ot J45.909 UNSPECIFIED ASTHMA, UNCOMPLICATED 01/22/2018 CASSANDRA VELASCO INTEGRATED LOGISTICS SUPPORT MANAGER Ot R05 COUGH 01/22/2018 CASSANDRA VELASCO APRN Ot R06.00 DYSPNEA, UNSPECIFIED 01/22/2018 CASSANDRA VELASCO APRN Ot J18.9 PNEUMONIA, UNSPECIFIED ORGANISM 01/22/2018 RENEA STAHL APRN Ot Z12.31 ENCNTR SCREEN MAMMOGRAM FOR MALIGNANT NE 01/22/2018 RENEA STAHL INTEGRATED LOGISTICS SUPPORT MANAGER Ot R92.8 OTH ABN AND INCONCLUSIVE FINDINGS ON DX 01/22/2018 RENEA STAHL APRN Ot 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 01/22/2018 RENEA STAHL APRN Ot N60.22 FIBROADENOSIS OF LEFT BREAST 01/22/2018 RENEA STAHL APRN Ot N60.92 UNSPECIFIED BENIGN MAMMARY DYSPLASIA OF 02/19/2018 LISS BAGLEY APRN Ot E11 .9 TYPE 2 DIABETES MELLITUS WITHOUT COMPLIC 02/19/2018 LISS BAGLEY APRN Ot E78.00 PURE HYPERCHOLESTEROLEMIA, UNSPECIFIED 02/19/2018 LISS BAGLEY APRN Ot G89.18 OTHER ACUTE POSTPROCEDURAL PAIN 02/19/2018 LISS BAGLEY APRN Ot J45.909 UNSPECIFIED ASTHMA, UNCOMPLICATED 02/19/2018 LISS BAGLEY APRN Ot K21 .9 GASTRO-ESOPHAGEAL REFLUX DISEASE WITHOUT 02/19/2018 LISS BAGLEY APRN Ot M25.561 PAIN IN RIGHT KNEE 02/19/2018 LISS BAGLEY APRN Ot Z79 .4 MCC (CURRENT) USE OF INSULIN 02/19/2018 LISS BAGLEY APRN Ot Z79.51 NEGATIVE CUTTER (CURRENT) USE OF INHALED STERO 02/19/2018 LISS BAGLEY APRN Ot Z82.49 FAMILY HX OF ISCHEM HEART DIS AND OTH DI 02/19/2018 LISS BAGLEY APRN Ot Z87.19 PERSONAL HISTORY OF OTHER DISEASES OF TH 02/19/2018 LISS BAGLEY APRN Ot Z87.440 PERSONAL HISTORY OF URINARY (TRACT) INFE 02/19/2018 LISS BAGLEY APRN Ot Z88 .0 ALLERGY STATUS TO PENICILLIN 02/19/2018 LISS BAGLEY INTEGRATED LOGISTICS SUPPORT MANAGER Ot Z88 .8 ALLERGY STATUS TO OTH DRUG/MEDS/BIOL SUB 02/19/2018 LISS BAGLEY INTEGRATED LOGISTICS SUPPORT MANAGER Ot Z98.890 OTHER SPECIFIED POSTPROCEDURAL STATES 05/26/2018 BERNAIDEE MENG Ot E11.9 TYPE 2 DIABETES MELLITUS WITHOUT COMPLIC 05/26/2018 BERNTAQUERIA AIDEE Ot E78.00 PURE HYPERCHOLESTEROLEMIA, UNSPECIFIED 05/26/2018 BERNTAQUERIA AIDEE Ot J45.909 UNSPECIFIED ASTHMA, UNCOMPLICATED 05/26/2018 BERNOT, AIDEE Ot K21.9 GASTRO-ESOPHAGEAL REFLUX DISEASE WITHOUT 05/26/2018 BERNOT, AIDEE Ot R10.11 RIGHT UPPER QUADRANT PAIN 05/26/2018 BERNOT AIDEE Ot Z79.4 NEGATIVE CUTTER (CURRENT) USE OF INSULIN 05/26/2018 BERNOT, AIDEE Ot Z79.51 MCC (CURRENT) USE OF INHALED STERO 05/26/2018 LIBBY AIDEE Ot Z80.6 FAMILY HISTORY OF LEUKEMIA 05/26/2018 DAVID SOUZAIS Ot Z82.49 FAMILY HX OF ISCHEM HEART DIS AND OTH DI 05/26/2018 BERNTAQUERIA AIDEE Ot Z87.440 PERSONAL HISTORY OF URINARY (TRACT) INFE 05/26/2018 LIBBY AIDEE Ot Z88.0 ALLERGY STATUS TO PENICILLIN 05/26/2018 FARNAZOT AIDEE Ot Z88.8 ALLERGY STATUS TO OTH DRUG/MEDS/BIOL SUB 05/26/2018 LIBBY AIDEE Ot Z98.890 OTHER SPECIFIED POSTPROCEDURAL STATES 05/28/2018 DAVID SOUZAIS Ot E11.9 TYPE 2 DIABETES MELLITUS WITHOUT COMPLIC 05/28/2018 BERNOT, AIDEE Ot E78.00 PURE HYPERCHOLESTEROLEMIA, UNSPECIFIED 05/28/2018 BERNOT AIDEE Ot J45.909 UNSPECIFIED ASTHMA, UNCOMPLICATED 05/28/2018 BERNOT AIDEE Ot K21.9 GASTRO-ESOPHAGEAL REFLUX DISEASE WITHOUT 05/28/2018 BERNOT AIDEE Ot R10.11 RIGHT UPPER QUADRANT PAIN 05/28/2018 BERNOT AIDEE Ot Z79.4 NEGATIVE CUTTER (CURRENT) USE OF INSULIN 05/28/2018 BERNOT, AIDEE Ot Z79.51 NEGATIVE CUTTER (CURRENT) USE OF INHALED STERO 05/28/2018 AIDEE SOUZA Ot Z80.6 FAMILY HISTORY OF LEUKEMIA 05/28/2018 AIDEE SOUZA Ot Z82.49 FAMILY HX OF ISCHEM HEART DIS AND OTH DI 05/28/2018 AIDEE SOUZA Ot Z87.440 PERSONAL HISTORY OF URINARY (TRACT) INFE 05/28/2018 AIDEE OSUZA Ot Z88.0 ALLERGY STATUS TO PENICILLIN 05/28/2018 AIDEE SOUZA Ot Z88.8 ALLERGY STATUS TO OTH DRUG/MEDS/BIOL SUB 05/28/2018 AIDEE SOUZA Ot Z98.890 OTHER SPECIFIED POSTPROCEDURAL STATES 06/12/2018 DELISH DO VALERIA B Ot Z01.8 18 ENCOUNTER FOR OTHER PREPROCEDURAL EXAMIN 06/18/2018 DIANE CHAVEZ VALERIA B Ot Z01.8 18 ENCOUNTER FOR OTHER PREPROCEDURAL EXAMIN 06/19/2018 DIANE DO VALERIA B Ot R92.8 OTH ABN AND INCONCLUSIVE FINDINGS ON DX 06/19/2018 DIANE DOALISAIC B Ot Z98.8 90 OTHER SPECIFIED POSTPROCEDURAL STATES 06/19/2018 DELMAN DO, VALERIA B Ot E11.9 TYPE 2 DIABETES MELLITUS WITHOUT COMPLIC 06/19/2018 DIANE DO, VALERIA B Ot J45.9 09 UNSPECIFIED ASTHMA, UNCOMPLICATED 06/19/2018 DIANE DO VALERIA B Ot K21.9 GASTRO-ESOPHAGEAL REFLUX DISEASE WITHOUT 06/19/2018 PARIMAN DO, VALERIA B Ot K81.1 CHRONIC CHOLECYSTITIS 06/19/2018 ALISA CONTRERAS DOIC B Ot Z79.4 NEGATIVE CUTTER (CURRENT) USE OF INSULIN 06/19/2018 ALISA CONTRERAS DOIC B Ot Z79.8 99 OTHER NEGATIVE CUTTER (CURRENT) DRUG THERAPY 07/02/2018 DIANE CHAVEZ VALERIA B Ot R92.8 OTH ABN AND INCONCLUSIVE FINDINGS ON DX 07/02/2018 DIANE DO VALERIA B Ot Z98.8 90 OTHER SPECIFIED POSTPROCEDURAL STATES 07/19/2018 KATINA JONES, WILEY Mancini Ot E11.9 TYPE 2 DIABETES MELLITUS WITHOUT COMPLIC 07/19/2018 KATINA JONES, WILEY Mancini Ot E78.00 PURE HYPERCHOLESTEROLEMIA, UNSPECIFIED 07/19/2018 WILEY AMBRIZ MD Ot J45.909 UNSPECIFIED ASTHMA, UNCOMPLICATED 07/19/2018 WILEY AMBRIZ MD, Ot M25.512 PAIN IN LEFT SHOULDER 07/19/2018 WILEY AMBRIZ MD, Ot S16.1XXA STRAIN OF MUSCLE, FASCIA AND TENDON AT N 07/19/2018 WILEY AMBRIZ MD, Ot S46.912A STRAIN UNSP MUSC/FASC/TEND AT LDR/ A 07/19/2018 WILEY AMBRIZ MD, Ot X58.XXXA EXPOSURE TO OTHER SPECIFIED FACTORS, INI 07/19/2018 WILEY AMBRIZ MD, Ot Z79.4 NEGATIVE CUTTER (CURRENT) USE OF INSULIN 07/19/2018 WILEY AMBRIZ MD, Ot Z82.49 FAMILY HX OF ISCHEM HEART DIS AND OTH DI 07/19/2018 WILEY AMBRIZ MD, Ot Z87.19 PERSONAL HISTORY OF OTHER DISEASES OF TH 07/19/2018 WILEY AMBRIZ MD, Ot Z87.440 PERSONAL HISTORY OF URINARY (TRACT) INFE 07/19/2018 WILEY AMBRIZ MD, Ot Z88.0 ALLERGY STATUS TO PENICILLIN 07/19/2018 WILEY AMBRIZ MD, Ot Z88.8 ALLERGY STATUS TO OTH DRUG/MEDS/BIOL SUB 07/19/2018 WILEY AMBRIZ MD, Ot Z98.890 OTHER SPECIFIED POSTPROCEDURAL STATES 07/25/2018 WILEY AMBRIZ MD Ot E11.9 TYPE 2 DIABETES MELLITUS WITHOUT COMPLIC 07/25/2018 WILEY AMBRIZ MD Ot E78.00 PURE HYPERCHOLESTEROLEMIA, UNSPECIFIED 07/25/2018 WILEY AMBRIZ MD, Ot J45.909 UNSPECIFIED ASTHMA, UNCOMPLICATED 07/25/2018 WILEY AMBRIZ MD, Ot M25.512 PAIN IN LEFT SHOULDER 07/25/2018 WILEY AMBRIZ MD, Ot S16.1XXA STRAIN OF MUSCLE, FASCIA AND TENDON AT N 07/25/2018 WILEY AMBRIZ MD, Ot S46.912A STRAIN UNSP MUSC/FASC/TEND AT LDR/UP A 07/25/2018 WILEY AMBRIZ MD, Ot X58.XXXA EXPOSURE TO OTHER SPECIFIED FACTORS, INI 07/25/2018 WILEY AMBRIZ MD, Ot Z79.4 NEGATIVE CUTTER (CURRENT) USE OF INSULIN 07/25/2018 WILEY AMBRIZ MD Ot Z82.49 FAMILY HX OF ISCHEM HEART DIS AND OTH DI 07/25/2018 WILEY AMBRIZ MD, Ot Z87.19 PERSONAL HISTORY OF OTHER DISEASES OF TH 07/25/2018 WILEY AMBRIZ MD, Ot Z87.440 PERSONAL HISTORY OF URINARY (TRACT) INFE 07/25/2018 WILEY AMBRIZ MD, Ot Z88.0 ALLERGY STATUS TO PENICILLIN 07/25/2018 WILEY AMBRIZ MD, Ot Z88.8 ALLERGY STATUS TO OTH DRUG/MEDS/BIOL SUB 07/25/2018 WILEY AMBRIZ MD Ot Z98.890 OTHER SPECIFIED POSTPROCEDURAL STATES 10/08/2018 ELSY DO, NOEL K Ot E11.9 TYPE 2 DIABETES MELLITUS WITHOUT COMPLIC 10/08/2018 ELSY DO, NOEL K Ot E78.00 PURE HYPERCHOLESTEROLEMIA, UNSPECIFIED 10/08/2018 ELSY DO, NOEL K Ot J45.909 UNSPECIFIED ASTHMA, UNCOMPLICATED 10/08/2018 ELSY DO, NOEL K Ot N39.0 URINARY TRACT INFECTION, SITE NOT SPECIF 10/08/2018 ELSY DO, NOEL K Ot R10.12 LEFT UPPER QUADRANT PAIN 10/08/2018 ELSY DO, NOEL K Ot R12 HEARTBURN 10/08/2018 ELSY DO, NOEL K Ot Z79.4 MCC (CURRENT) USE OF INSULIN 10/08/2018 ELSY DO, NOEL K Ot Z82.49 FAMILY HX OF ISCHEM HEART DIS AND OTH DI 10/08/2018 ELSY DO, NOEL K Ot Z88.0 ALLERGY STATUS TO PENICILLIN 10/08/2018 ELSY DO, NOEL K Ot Z88.8 ALLERGY STATUS TO OTH DRUG/MEDS/BIOL SUB 10/08/2018 ELSY DO, NOEL K Ot Z98.890 OTHER SPECIFIED POSTPROCEDURAL STATES 11/22/2018 LISS BAGLEY APRN Ot E11 .9 TYPE 2 DIABETES MELLITUS WITHOUT COMPLIC 11/22/2018 LISS BAGLEY APRN Ot E78.00 PURE HYPERCHOLESTEROLEMIA, UNSPECIFIED 11/22/2018 LISS BAGLEY APRN Ot J45.909 UNSPECIFIED ASTHMA, UNCOMPLICATED 11/22/2018 LISS BAGLEY INTEGRATED LOGISTICS SUPPORT MANAGER Ot R10.84 GENERALIZED ABDOMINAL PAIN 11/22/2018 LISS BAGLEY APRN Ot R10 .9 UNSPECIFIED ABDOMINAL PAIN 11/22/2018 LISS BAGLEY APRN Ot Z79 .4 MCC (CURRENT) USE OF INSULIN 11/22/2018 LISS BAGLEY INTEGRATED LOGISTICS SUPPORT MANAGER Ot Z82.49 FAMILY HX OF ISCHEM HEART DIS AND OTH DI 11/22/2018 LISS BAGLEY APRN Ot Z87.19 PERSONAL HISTORY OF OTHER DISEASES OF TH 11/22/2018 LISS BAGLEY APRN Ot Z87.440 PERSONAL HISTORY OF URINARY (TRACT) INFE 11/22/2018 LISS BAGLEY APRN Ot Z88 .0 ALLERGY STATUS TO PENICILLIN 11/22/2018 LISS BAGLEY APRN Ot Z88 .8 ALLERGY STATUS TO OTH DRUG/MEDS/BIOL SUB 03/22/2019 ELKE PRICE MD Ot E11. 9 TYPE 2 DIABETES MELLITUS WITHOUT COMPLIC 03/22/2019 ELKE PRICE MD Ot E78. 00 PURE HYPERCHOLESTEROLEMIA, UNSPECIFIED 03/22/2019 ELKE PRICE MD Ot J45.909 UNSPECIFIED ASTHMA, UNCOMPLICATED 03/22/2019 ELKE PRICE MD Ot K21. 9 GASTRO-ESOPHAGEAL REFLUX DISEASE WITHOUT 03/22/2019 ELKE PRICE MD Ot M54. 5 LOW BACK PAIN 03/22/2019 ELKE PRICE MD Ot N39. 0 URINARY TRACT INFECTION, SITE NOT SPECIF 03/22/2019 ELKE PRICE MD Ot Z79. 4 NEGATIVE CUTTER (CURRENT) USE OF INSULIN 03/22/2019 ELKE PRICE MD Ot Z80. 6 FAMILY HISTORY OF LEUKEMIA 03/22/2019 ELKE PRICE MD Ot Z82. 49 FAMILY HX OF ISCHEM HEART DIS AND OTH DI 03/22/2019 ELKE PRICE MD Ot Z88. 0 ALLERGY STATUS TO PENICILLIN 03/22/2019 ELKE PRICE MD Ot Z88. 8 ALLERGY STATUS TO OTH DRUG/MEDS/BIOL SUB 03/22/2019 ELKE PRICE MD Ot Z90. 49 ACQUIRED ABSENCE OF OTHER SPECIFIED PART 04/06/2019 ARRON CHIN DOA Kelsi Ot E11.9 TYPE 2 DIABETES MELLITUS WITHOUT COMPLIC 04/06/2019 ARRON CHIN DOA K Ot J45.909 UNSPECIFIED ASTHMA, UNCOMPLICATED 04/06/2019 ELSY DO, NOEL K Ot K21.9 GASTRO-ESOPHAGEAL REFLUX DISEASE WITHOUT 04/06/2019 ELSY DO, NOEL K Ot K59.00 CONSTIPATION, UNSPECIFIED 04/06/2019 ELSY DO, NOEL K Ot N20.0 CALCULUS OF KIDNEY 04/06/2019 ELSY DO, NOEL K Ot R10.12 LEFT UPPER QUADRANT PAIN 04/06/2019 ELSY DO, NOEL K Ot R31.21 ASYMPTOMATIC MICROSCOPIC HEMATURIA 04/06/2019 ELSY DO, NOEL K Ot Z77.22 CNTCT W AND EXPSR TO ENVIRON TOBACCO SMO 04/06/2019 ELSY DO, NOEL K Ot Z79.4 MCC (CURRENT) USE OF INSULIN 04/06/2019 ELSY DO, ONEL K Ot Z82.49 FAMILY HX OF ISCHEM HEART DIS AND OTH DI 04/06/2019 ELSY DO, NOEL K Ot Z88.0 ALLERGY STATUS TO PENICILLIN 04/06/2019 ELSY DO, NOEL K Ot Z88.8 ALLERGY STATUS TO OTH DRUG/MEDS/BIOL SUB 04/06/2019 ELSY DO, NOEL K Ot Z90.49 ACQUIRED ABSENCE OF OTHER SPECIFIED PART 04/12/2019 ELSY DO, NOEL K Ot E11.9 TYPE 2 DIABETES MELLITUS WITHOUT COMPLIC 04/12/2019 ELSY DO, NOEL K Ot J45.909 UNSPECIFIED ASTHMA, UNCOMPLICATED 04/12/2019 ELSY DO, NOEL K Ot K21.9 GASTRO-ESOPHAGEAL REFLUX DISEASE WITHOUT 04/12/2019 ELSY DO, NOEL K Ot K59.00 CONSTIPATION, UNSPECIFIED 04/12/2019 ELSY DO, NOEL K Ot N20.0 CALCULUS OF KIDNEY 04/12/2019 ELSY DO, NOEL K Ot R10.12 LEFT UPPER QUADRANT PAIN 04/12/2019 ELSY DO, NOEL K Ot R31.21 ASYMPTOMATIC MICROSCOPIC HEMATURIA 04/12/2019 ELSY DO, NOEL K Ot Z77.22 CNTCT W AND EXPSR TO ENVIRON TOBACCO SMO 04/12/2019 ELSY DO, NOEL K Ot Z79.4 NEGATIVE CUTTER (CURRENT) USE OF INSULIN 04/12/2019 ELSY DO, NOEL K Ot Z82.49 FAMILY HX OF ISCHEM HEART DIS AND OTH DI 04/12/2019 ELSY DO, NOEL K Ot Z88.0 ALLERGY STATUS TO PENICILLIN 04/12/2019 ELSY DO, NOEL K Ot Z88.8 ALLERGY STATUS TO OTH DRUG/MEDS/BIOL SUB 04/12/2019 ELSY DO, NOEL K Ot Z90.49 ACQUIRED ABSENCE OF OTHER SPECIFIED PART 04/13/2019 LISS BAGLEY APRN Ot E11 .9 TYPE 2 DIABETES MELLITUS WITHOUT COMPLIC 04/13/2019 LISS BAGLEY APRN Ot J45.909 UNSPECIFIED ASTHMA, UNCOMPLICATED 04/13/2019 LISS BAGLEY APRN Ot K21 .9 GASTRO-ESOPHAGEAL REFLUX DISEASE WITHOUT 04/13/2019 BAGLEYLISS RILEY APRN Ot N39 .0 URINARY TRACT INFECTION, SITE NOT SPECIF 04/13/2019 LISS BAGLEY APRN Ot R10 .9 UNSPECIFIED ABDOMINAL PAIN 04/13/2019 LISS BAGLEY APRN Ot Z77.22 CNTCT W AND EXPSR TO ENVIRON TOBACCO SMO 04/13/2019 LISS BAGLEY APRN Ot Z79 .4 NEGATIVE CUTTER (CURRENT) USE OF INSULIN 04/13/2019 LISS BAGLEY APRN Ot Z82.49 FAMILY HX OF ISCHEM HEART DIS AND OTH DI 04/13/2019 LISS BAGLEY APRN Ot Z88 .0 ALLERGY STATUS TO PENICILLIN 04/13/2019 LISS BAGLEY APRN Ot Z88 .8 ALLERGY STATUS TO OTH DRUG/MEDS/BIOL SUB 06/21/2019 LISS BAGLEY APRN Ot E11 .9 TYPE 2 DIABETES MELLITUS WITHOUT COMPLIC 06/21/2019 LISS BAGLEY APRN Ot J45.909 UNSPECIFIED ASTHMA, UNCOMPLICATED 06/21/2019 LISS BAGLEY APRN Ot K21 .9 GASTRO-ESOPHAGEAL REFLUX DISEASE WITHOUT 06/21/2019 LISS BAGLEY APRN Ot M79.641 PAIN IN RIGHT HAND 06/21/2019 LISS BAGLEY APRN Ot Z77.22 CNTCT W AND EXPSR TO ENVIRON TOBACCO SMO 06/21/2019 LISS BAGLEY APRN Ot Z79 .4 MCC (CURRENT) USE OF INSULIN 06/21/2019 LISS BAGLEY APRN Ot Z80 .6 FAMILY HISTORY OF LEUKEMIA 06/21/2019 LISS BAGLEY APRN Ot Z82.49 FAMILY HX OF ISCHEM HEART DIS AND OTH DI 06/21/2019 LISS BAGLEY APRN Ot Z88 .0 ALLERGY STATUS TO PENICILLIN 06/21/2019 LISS BAGLEY INTEGRATED LOGISTICS SUPPORT MANAGER Ot Z88 .8 ALLERGY STATUS TO OTH DRUG/MEDS/BIOL SUB 06/23/2019 LISS BAGLEY APRN Ot E11 .9 TYPE 2 DIABETES MELLITUS WITHOUT COMPLIC 06/23/2019 LISS BAGLEY APRN Ot J45.909 UNSPECIFIED ASTHMA, UNCOMPLICATED 06/23/2019 LISS BAGLEY APRN Ot K21 .9 GASTRO-ESOPHAGEAL REFLUX DISEASE WITHOUT 06/23/2019 LISS BAGLEY APRN Ot M79.641 PAIN IN RIGHT HAND 06/23/2019 LISS BAGLEY APRN Ot Z77.22 CNTCT W AND EXPSR TO ENVIRON TOBACCO SMO 06/23/2019 LISS BAGLEY APRN Ot Z79 .4 NEGATIVE CUTTER (CURRENT) USE OF INSULIN 06/23/2019 LISS BAGLEY APRN Ot Z80 .6 FAMILY HISTORY OF LEUKEMIA 06/23/2019 LISS BAGLEY APRN Ot Z82.49 FAMILY HX OF ISCHEM HEART DIS AND OTH DI 06/23/2019 LISS BAGLEY APRN Ot Z88 .0 ALLERGY STATUS TO PENICILLIN 06/23/2019 LISS BAGLEY APRN Ot Z88 .8 ALLERGY STATUS TO OTH DRUG/MEDS/BIOL SUB Procedures Code Description [place] [address] A1C (IN-HOUSE) 07/04/2012 ENDOC ROSIE PETERS 07/04/2012 Orthopedi Hu Vickers 07/07/2012 51813 XRAY KNEE LEFT, 1 OR 2 VIEWS 09/02/2012 24313 ROUT INE VENIPUNCTURE 11/21/2012 15468 TSH 11/21/2012 62679 A1C (IN-HOUSE) 11/21/2012 12319 MICR O ALBUMIN-IN HOUSE 11/21/2012 94836 MICR OALBUMIN 11/21/2012 49335 CBC 11/21/2012 97011 CMP 11/21/2012 18416 LIPI D PANEL 11/21/20122729168 GF R CALC (RESULT ONLY) 11/21/2012 39018 A1C (IN-HOUSE) 07/24/2013 50914 ROUT INE VENIPUNCTURE 01/22/2014 00292 CMP 01/22/2014 89089 LIPI D PANEL 01/22/2014 31291 TSH 01/22/2014 25608 CBC 01/22/2014 91707 A1C (IN-HOUSE) 01/22/2014 43802 THER APUTIC INJ SQ/IM 05/31/2014 J1885 CLARIBEL DOL INJ 05/31/2014 96469 MICR O ALBUMIN-IN HOUSE 05/31/2014 66632 MICR OALBUMIN 05/31/2014 96270 XRAY CERVICAL SPINE, 2 OR 3 VIEWS 07/02/[id number] NERI OF STOMACH, PYLORUS, VIA OPENIN 07/28/2016 Results Test Result Range Complete urinalysis with reflex to cultu re - 11/27/15 22:06 Urine color determination YELLOW NRG Urine clarity determination CLEAR NR G Urine pH measurement by test strip 6 5-9 Specific gravity of urine by test strip 1.020 1.016-1.022 Urine protein assay by test strip, semi-quantitative 1+ NEGATIVE Urine glucose detection by automated test strip 3+ NEGATIVE Erythrocytes detection in urine sediment by light micr oscopy NEGATIVE NEGATIVE Urine ketones detection by automated test strip NE GATIVE NEGATIVE Urine nitrite detection by test strip NEGATIVE NEGATIVE Urine total bilirubin detection by test strip NEGA TIVE NEGATIVE Urine urobilinogen measurement by automated test strip (mass/volume) NORMAL NORMAL Urine leukocyte esterase detection by dipstick 3+ NEGATIVE Automated urine sediment erythrocyte cou nt by microscopy (number/high power field) NONE NRG Automated urine sediment leukocyte count by microscopy (number/high power field) [HPF] NRG Bacteria detection in urine sediment by light microsco py TRACE NRG Squamous epithelial cells detection in u rine sediment by light microscopy 5-10 NRG Crystals detection in urine sediment by light microsco py NONE NRG Casts detection in urine sediment by light microscopy NONE NRG Mucus detection in urine sediment by light microscopy NEGATIVE NRG Complete urinalysis with reflex to culture YES NRG Bacterial urine culture - 11/27/15 22:06 Bacterial urine culture [id number] NRG COLONY COUNT 10,000/ML - 100,000/ML NRG FTX;REPORTABLE SEE COMMENT NRG URINE CULTURE RESULTS >100,000/ML NRG Bacterial susceptibility panel - 6 22:06 Oxacillin susceptibility test by minimum inhibitory co ncentration <= NRG Gentamicin susceptibility test by minimum inhibitory c oncentration <= NRG Trimethoprim/sulfamethoxazole susceptibi lity test by minimum inhibitoryconcentration <= NRG Vancomycin susceptibility test by minimum inhibitory c oncentration 1 NRG Levofloxacin susceptibility test by minimum inhibitory concentration <= NRG Rifampin susceptibility test by minimum inhibitory con centration <= NRG Tetracycline susceptibility test by minimum inhibitory concentration <= NRG Nitrofurantoin susceptibility test by mi nimum inhibitory concentration 32 NRG Complete blood count (CBC) with automate d white blood cell (WBC) differential - 12/13/15 20:57 Blood leukocytes automated count (number/volume) 7.1 10*3/uL 4.3-11.0 Blood erythrocytes automated count (number/volume) 3.89 10*6/uL 4.35-5.85 Venous blood hemoglobin measurement (mass/volume) 11.2 g/dL 11.5-16.0 Blood hematocrit (volume fraction) 34 % 35-52 Automated erythrocyte mean corpuscular volume 87 [ foz_us] 80-99 Automated erythrocyte mean corpuscular h emoglobin (mass per erythrocyte) 29 pg 25-34 Automated erythrocyte mean corpuscular h emoglobin concentration measurement (mass/volume) 33 g/dL 32-36 Automated erythrocyte distribution width ratio 13. 8 % 10.0- 14.5 Automated blood platelet count (count/volume) 415 10*3/uL [...] 10*3 1.0-4.0 Blood monocytes automated count (number/volume) 0. 4 10*3 0.0-1.0 Automated eosinophil count 0.1 10*3/uL 0 .0-0.3 Automated blood basophil count (count/volume) 0.0 10*3/uL 0.0-0.1 Comprehensive metabolic panel - 12/13/15 20:57 Serum or plasma sodium measurement (moles/volume) 136 mmol/L 135-145 Serum or plasma potassium measurement (moles/volume) 3.9 mmol/L 3.6-5.0 Serum or plasma chloride measurement (moles/volume) 107 mmol/L 98-107 Carbon dioxide 17 mmol/L 21-32 Serum or plasma anion gap determination (moles/volume) 12 mmol/L 5-14 Serum or plasma urea nitrogen measurement (mass/volume ) 13 mg/dL 7-18 Serum or plasma creatinine measurement (mass/volume) 0.79 mg/dL 0.60-1.30 Serum or plasma urea nitrogen/creatinine mass ratio 16 NRG Serum or plasma creatinine measurement w ith calculation of estimated glomerular filtration rate > NRG Serum or plasma glucose measurement (mass/volume) 185 mg/dL 70-105 Serum or plasma calcium measurement (mass/volume) 9.1 mg/dL 8.5-10.1 Serum or plasma total bilirubin measurement (mass/volu me) 0.2 mg/dL 0.1-1.0 Serum or plasma alkaline phosphatase sindhu surement (enzymatic activity/volume) 57 U/L 40-136 Serum or plasma aspartate aminotransfera se measurement (enzymatic activity/volume) 16 U/L 5-34 Serum or plasma alanine aminotransferase measurement (enzymatic activity/volume) 24 U/L 0-55 Serum or plasma protein measurement (mass/volume) 7.2 g/dL 6.4-8.2 Serum or plasma albumin measurement (mass/volume) 4.0 g/dL 3.2-4.5 Lipase - 12/13/15 20:57 Lipase 44 U/L 8-78 Complete urinalysis with reflex to cultu re - 12/13/15 21:50 Urine color determination YELLOW NRG Urine clarity determination SLIGHTLY CLOUDY NRG Urine pH measurement by test strip 5 5-9 Specific gravity of urine by test strip 1.025 1.016-1.022 Urine protein assay by test strip, semi-quantitative 2+ NEGATIVE Urine glucose detection by automated test strip 4+ NEGATIVE Erythrocytes detection in urine sediment by light micr oscopy 4+ NEGATIVE Urine ketones detection by automated test strip 1+ NEGATIVE Urine nitrite detection by test strip NEGATIVE NEGATIVE Urine total bilirubin detection by test strip NEGA TIVE NEGATIVE Urine urobilinogen measurement by automated test strip (mass/volume) 1 mg/dL NORMAL Urine leukocyte esterase detection by dipstick 3+ NEGATIVE Automated urine sediment erythrocyte cou nt by microscopy (number/high power field) [HPF] NRG Automated urine sediment leukocyte count by microscopy (number/high power field) [HPF] NRG Bacteria detection in urine sediment by light microsco py MODERATE NRG Squamous epithelial cells detection in u rine sediment by light microscopy 2-5 NRG Crystals detection in urine sediment by light microsco py NONE NRG Casts detection in urine sediment by light microscopy NONE NRG Mucus detection in urine sediment by light microscopy NEGATIVE NRG Complete urinalysis with reflex to culture YES NRG Bacterial urine culture - 12/13/15 21:50 Bacterial urine culture [id number] NRG COLONY COUNT >100,000/ML NRG MRSA AGAR Screening test for MRSA is N EGATIVE (Final to follow) NRG FTX;REPORTABLE SENSITIVITY REPORTED AT 0821, NRG URINE CULTURE RESULTS PLUS NRG Bacterial susceptibility panel - 6 21:50 Oxacillin susceptibility test by minimum inhibitory co ncentration <= NRG Gentamicin susceptibility test by minimum inhibitory c oncentration <= NRG Trimethoprim/sulfamethoxazole susceptibi lity test by minimum inhibitoryconcentration <= NRG Vancomycin susceptibility test by minimum inhibitory c oncentration <= NRG Levofloxacin susceptibility test by minimum inhibitory concentration <= NRG Rifampin susceptibility test by minimum inhibitory con centration <= NRG Tetracycline susceptibility test by minimum inhibitory concentration <= NRG Capillary blood glucose measurement by g lucometer (mass/volume) - 02/21/16 12:37 Capillary blood glucose measurement by glucometer (mas s/volume) 181 mg/dL 70-110 Complete blood count (CBC) with automate d white blood cell (WBC) differential - 04/05/16 01:10 Blood leukocytes automated count (number/volume) 7.1 10*3/uL 4.3-11.0 Blood erythrocytes automated count (number/volume) 4.01 10*6/uL 4.35-5.85 Venous blood hemoglobin measurement (mass/volume) 10.7 g/dL 11.5-16.0 Blood hematocrit (volume fraction) 33 % 35-52 Automated erythrocyte mean corpuscular volume 83 [ foz_us] 80-99 Automated erythrocyte mean corpuscular h emoglobin (mass per erythrocyte) 27 pg 25-34 Automated erythrocyte mean corpuscular h emoglobin concentration measurement (mass/volume) 32 g/dL 32-36 Automated erythrocyte distribution width ratio 15. 3 % 10.0- 14.5 Automated blood platelet count (count/volume) 432 10*3/uL [...] 10*3 1.0-4.0 Blood monocytes automated count (number/volume) 0. 6 10*3 0.0-1.0 Automated eosinophil count 0.1 10*3/uL 0 .0-0.3 Automated blood basophil count (count/volume) 0.0 10*3/uL 0.0-0.1 Comprehensive metabolic panel - 04/05/16 01:10 Serum or plasma sodium measurement (moles/volume) 140 mmol/L 135-145 Serum or plasma potassium measurement (moles/volume) 3.2 mmol/L 3.6-5.0 Serum or plasma chloride measurement (moles/volume) 108 mmol/L 98-107 Carbon dioxide 22 mmol/L 21-32 Serum or plasma anion gap determination (moles/volume) 10 mmol/L 5-14 Serum or plasma urea nitrogen measurement (mass/volume ) 9 mg/dL 7-18 Serum or plasma creatinine measurement (mass/volume) 0.73 mg/dL 0.60-1.30 Serum or plasma urea nitrogen/creatinine mass ratio 12 NRG Serum or plasma creatinine measurement w ith calculation of estimated glomerular filtration rate > NRG Serum or plasma glucose measurement (mass/volume) 147 mg/dL 70-105 Serum or plasma calcium measurement (mass/volume) 8.7 mg/dL 8.5-10.1 Serum or plasma total bilirubin measurement (mass/volu me) 0.2 mg/dL 0.1-1.0 Serum or plasma alkaline phosphatase sindhu surement (enzymatic activity/volume) 55 U/L 40-136 Serum or plasma aspartate aminotransfera se measurement (enzymatic activity/volume) 22 U/L 5-34 Serum or plasma alanine aminotransferase measurement (enzymatic activity/volume) 24 U/L 0-55 Serum or plasma protein measurement (mass/volume) 6.9 g/dL 6.4-8.2 Serum or plasma albumin measurement (mass/volume) 3.9 g/dL 3.2-4.5 Serum or plasma amylase measurement (enz ymatic activity/volume) - 04/05/16 01:10 Serum or plasma amylase measurement (enzymatic activit y/volume) 33 U/L 25-125 Lipase - 04/05/16 01:10 Lipase 32 U/L 8-78 Influenza virus A and B antigen detectio n - 04/16/16 21:19 FLU RESULT NEGATIVE FOR INFLUENZA A AND B ANTIGENS BY IA NRG Microalb/Creat Ratio, Randm Ur - 7 10:40 Creatinine, Urine 110.4 mg/dL Not Estab. Microalbumin, Urine 42.4 ug/mL Not Estab . Microalb/Creat Ratio 38.4 mg/g creat 0.0 -30.0 Complete blood count (CBC) with automate d white blood cell (WBC) differential - 04/22/16 20:39 Blood leukocytes automated count (number/volume) 13.2 10*3/uL 4.3-11.0 Blood erythrocytes automated count (number/volume) 4.17 10*6/uL 4.35-5.85 Venous blood hemoglobin measurement (mass/volume) 10.9 g/dL 11.5-16.0 Blood hematocrit (volume fraction) 33 % 35-52 Automated erythrocyte mean corpuscular volume 79 [ foz_us] 80-99 Automated erythrocyte mean corpuscular h emoglobin (mass per erythrocyte) 26 pg 25-34 Automated erythrocyte mean corpuscular h emoglobin concentration measurement (mass/volume) 33 g/dL 32-36 Automated erythrocyte distribution width ratio 15. 3 % 10.0- 14.5 Automated blood platelet count (count/volume) 484 10*3/uL [...] 10*3 1.0-4.0 Blood monocytes automated count (number/volume) 0. 4 10*3 0.0-1.0 Automated eosinophil count 0.0 10*3/uL 0 .0-0.3 Automated blood basophil count (count/volume) 0.0 10*3/uL 0.0-0.1 Blood manual differential performed dete ction - 04/22/16 20:39 Blood monocytes/100 leukocytes 1 % NRG Manual blood segmented neutrophils/100 leukocytes 83 % NRG Blood band neutrophils/100 leukocytes 1 % NRG Manual blood lymphocytes/100 leukocytes 15 % NRG Manual eosinophils/100 leukocytes in nose 0 % NRG Manual blood basophils/100 leukocytes 0 % NRG Blood anisocytosis detection by light microscopy M ODERATE NRG Blood ovalocytes detection by light microscopy SLI GHT NRG Blood toxic granules detection by light microscopy 1+ NRG Blood poikilocytosis detection by light microscopy SLIGHT NRG Blood rouleaux detection by light microscopy SLIGH T NRG Blood hypersegmented neutrophils detection by light mi croscopy SLIGHT NRG Comprehensive metabolic panel - 04/22/16 20:39 Serum or plasma sodium measurement (moles/volume) 131 mmol/L 135-145 Serum or plasma potassium measurement (moles/volume) 5.0 mmol/L 3.6-5.0 Serum or plasma chloride measurement (moles/volume) 102 mmol/L 98-107 Carbon dioxide 12 mmol/L 21-32 Serum or plasma anion gap determination (moles/volume) 17 mmol/L 5-14 Serum or plasma urea nitrogen measurement (mass/volume ) 17 mg/dL 7-18 Serum or plasma creatinine measurement (mass/volume) 1.38 mg/dL 0.60-1.30 Serum or plasma urea nitrogen/creatinine mass ratio 12 NRG Serum or plasma creatinine measurement w ith calculation of estimated glomerular filtration rate 41 NRG Serum or plasma glucose measurement (mass/volume) 434 mg/dL 70-105 Serum or plasma calcium measurement (mass/volume) 9.3 mg/dL 8.5-10.1 Serum or plasma total bilirubin measurement (mass/volu me) 0.3 mg/dL 0.1-1.0 Serum or plasma alkaline phosphatase sindhu surement (enzymatic activity/volume) 61 U/L 40-136 Serum or plasma aspartate aminotransfera se measurement (enzymatic activity/volume) 26 U/L 5-34 Serum or plasma alanine aminotransferase measurement (enzymatic activity/volume) 16 U/L 0-55 Serum or plasma protein measurement (mass/volume) 7.6 g/dL 6.4-8.2 Serum or plasma albumin measurement (mass/volume) 3.9 g/dL 3.2-4.5 Magnesium - 04/22/16 20:39 Magnesium 2.0 mg/dL 1.8-2.4 Serum or plasma C reactive protein measu rement (mass/volume) - 04/22/16 20:39 Serum or plasma C reactive protein measurement (mass/v olume) 0.50 mg/dL 0.00-0.50 Complete urinalysis with reflex to cultu re - 04/22/16 21:17 Urine color determination YELLOW NRG Urine clarity determination CLEAR NR G Urine pH measurement by test strip 5 5-9 Specific gravity of urine by test strip 1.015 1.016-1.022 Urine protein assay by test strip, semi-quantitative NEGATIVE NEGATIVE Urine glucose detection by automated test strip 4+ NEGATIVE Erythrocytes detection in urine sediment by light micr oscopy NEGATIVE NEGATIVE Urine ketones detection by automated test strip 2+ NEGATIVE Urine nitrite detection by test strip NEGATIVE NEGATIVE Urine total bilirubin detection by test strip NEGA TIVE NEGATIVE Urine urobilinogen measurement by automated test strip (mass/volume) NORMAL NORMAL Urine leukocyte esterase detection by dipstick 1+ NEGATIVE Automated urine sediment erythrocyte cou nt by microscopy (number/high power field) NONE NRG Automated urine sediment leukocyte count by microscopy (number/high power field) [HPF] NRG Bacteria detection in urine sediment by light microsco py NEGATIVE NRG Squamous epithelial cells detection in u rine sediment by light microscopy 0-2 NRG Crystals detection in urine sediment by light microsco py NONE NRG Casts detection in urine sediment by light microscopy NONE NRG Mucus detection in urine sediment by light microscopy NEGATIVE NRG Complete urinalysis with reflex to culture NO NRG Yeast detection in urine sediment by light microscopy FEW NRG Renal epithelial cells detection in urin e sediment by light microscopy NONE NRG Capillary blood glucose measurement by g lucometer (mass/volume) - 04/22/16 22:29 Capillary blood glucose measurement by glucometer (mas s/volume) 294 mg/dL 70-110 Complete urinalysis with reflex to cultu re - 06/07/16 21:22 Urine color determination YELLOW NRG Urine clarity determination SLIGHTLY CLOUDY NRG Urine pH measurement by test strip 6.5 5-9 Specific gravity of urine by test strip 1.010 1.016-1.022 Urine protein assay by test strip, semi-quantitative NEGATIVE NEGATIVE Urine glucose detection by automated test strip 4+ NEGATIVE Erythrocytes detection in urine sediment by light micr oscopy NEGATIVE NEGATIVE Urine ketones detection by automated test strip NE GATIVE NEGATIVE Urine nitrite detection by test strip NEGATIVE NEGATIVE Urine total bilirubin detection by test strip NEGA TIVE NEGATIVE Urine urobilinogen measurement by automated test strip (mass/volume) NORMAL NORMAL Urine leukocyte esterase detection by dipstick 2+ NEGATIVE Automated urine sediment erythrocyte cou nt by microscopy (number/high power field) RARE NRG Automated urine sediment leukocyte count by microscopy (number/high power field) [HPF] NRG Bacteria detection in urine sediment by light microsco py TRACE NRG Squamous epithelial cells detection in u rine sediment by light microscopy 5-10 NRG Crystals detection in urine sediment by light microsco py NONE NRG Casts detection in urine sediment by light microscopy NONE NRG Mucus detection in urine sediment by light microscopy NEGATIVE NRG Complete urinalysis with reflex to culture NO NRG Complete blood count (CBC) with automate d white blood cell (WBC) differential - 06/07/16 21:47 Blood leukocytes automated count (number/volume) 8.8 10*3/uL 4.3-11.0 Blood erythrocytes automated count (number/volume) 4.05 10*6/uL 4.35-5.85 Venous blood hemoglobin measurement (mass/volume) 10.2 g/dL 11.5-16.0 Blood hematocrit (volume fraction) 32 % 35-52 Automated erythrocyte mean corpuscular volume 80 [ foz_us] 80-99 Automated erythrocyte mean corpuscular h emoglobin (mass per erythrocyte) 25 pg 25-34 Automated erythrocyte mean corpuscular h emoglobin concentration measurement (mass/volume) 32 g/dL 32-36 Automated erythrocyte distribution width ratio 16. 5 % 10.0- 14.5 Automated blood platelet count (count/volume) 471 10*3/uL [...] 10*3 1.0-4.0 Blood monocytes automated count (number/volume) 0. 5 10*3 0.0-1.0 Automated eosinophil count 0.2 10*3/uL 0 .0-0.3 Automated blood basophil count (count/volume) 0.0 10*3/uL 0.0-0.1 Serum or plasma choriogonadotropin (preg rosie test) detection - 06/07/16 21:47 Serum or plasma choriogonadotropin ( test) de tection NEGATIVE NEGATIVE Comprehensive metabolic panel - 06/07/16 21:47 Serum or plasma sodium measurement (moles/volume) 140 mmol/L 135-145 Serum or plasma potassium measurement (moles/volume) 3.7 mmol/L 3.6-5.0 Serum or plasma chloride measurement (moles/volume) 107 mmol/L 98-107 Carbon dioxide 24 mmol/L 21-32 Serum or plasma anion gap determination (moles/volume) 9 mmol/L 5-14 Serum or plasma urea nitrogen measurement (mass/volume ) 7 mg/dL 7-18 Serum or plasma creatinine measurement (mass/volume) 0.76 mg/dL 0.60-1.30 Serum or plasma urea nitrogen/creatinine mass ratio 9 NRG Serum or plasma creatinine measurement w ith calculation of estimated glomerular filtration rate > NRG Serum or plasma glucose measurement (mass/volume) 210 mg/dL 70-105 Serum or plasma calcium measurement (mass/volume) 9.1 mg/dL 8.5-10.1 Serum or plasma total bilirubin measurement (mass/volu me) 0.3 mg/dL 0.1-1.0 Serum or plasma alkaline phosphatase sindhu surement (enzymatic activity/volume) 65 U/L 40-136 Serum or plasma aspartate aminotransfera se measurement (enzymatic activity/volume) 17 U/L 5-34 Serum or plasma alanine aminotransferase measurement (enzymatic activity/volume) 19 U/L 0-55 Serum or plasma protein measurement (mass/volume) 7.0 g/dL 6.4-8.2 Serum or plasma albumin measurement (mass/volume) 3.8 g/dL 3.2-4.5 Lipase - 06/07/16 21:47 Lipase 27 U/L 8-78 Capillary blood glucose measurement by g lucometer (mass/volume) - 06/08/16 05:09 Capillary blood glucose measurement by glucometer (mas s/volume) 113 mg/dL 70-110 Capillary blood glucose measurement by g lucometer (mass/volume) - 06/08/16 13:15 Capillary blood glucose measurement by glucometer (mas s/volume) 199 mg/dL 70-110 Capillary blood glucose measurement by g lucometer (mass/volume) - 06/08/16 19:41 Capillary blood glucose measurement by glucometer (mas s/volume) 175 mg/dL 70-110 Capillary blood glucose measurement by g lucometer (mass/volume) - 06/09/16 00:29 Capillary blood glucose measurement by glucometer (mas s/volume) 149 mg/dL 70-110 Complete blood count (CBC) with automate d white blood cell (WBC) differential - 06/09/16 04:30 Blood leukocytes automated count (number/volume) 7.1 10*3/uL 4.3-11.0 Blood erythrocytes automated count (number/volume) 4.13 10*6/uL 4.35-5.85 Venous blood hemoglobin measurement (mass/volume) 10.4 g/dL 11.5-16.0 Blood hematocrit (volume fraction) 33 % 35-52 Automated erythrocyte mean corpuscular volume 80 [ foz_us] 80-99 Automated erythrocyte mean corpuscular h emoglobin (mass per erythrocyte) 25 pg 25-34 Automated erythrocyte mean corpuscular h emoglobin concentration measurement (mass/volume) 31 g/dL 32-36 Automated erythrocyte distribution width ratio 16. 5 % 10.0- 14.5 Automated blood platelet count (count/volume) 459 10*3/uL [...] 10*3 1.0-4.0 Blood monocytes automated count (number/volume) 0. 5 10*3 0.0-1.0 Automated eosinophil count 0.2 10*3/uL 0 .0-0.3 Automated blood basophil count (count/volume) 0.0 10*3/uL 0.0-0.1 Comprehensive metabolic panel - 06/09/16 04:30 Serum or plasma sodium measurement (moles/volume) 139 mmol/L 135-145 Serum or plasma potassium measurement (moles/volume) 4.2 mmol/L 3.6-5.0 Serum or plasma chloride measurement (moles/volume) 112 mmol/L 98-107 Carbon dioxide 20 mmol/L 21-32 Serum or plasma anion gap determination (moles/volume) 7 mmol/L 5-14 Serum or plasma urea nitrogen measurement (mass/volume ) 3 mg/dL 7-18 Serum or plasma creatinine measurement (mass/volume) 0.62 mg/dL 0.60-1.30 Serum or plasma urea nitrogen/creatinine mass ratio 5 NRG Serum or plasma creatinine measurement w ith calculation of estimated glomerular filtration rate > NRG Serum or plasma glucose measurement (mass/volume) 160 mg/dL 70-105 Serum or plasma calcium measurement (mass/volume) 8.0 mg/dL 8.5-10.1 Serum or plasma total bilirubin measurement (mass/volu me) 0.5 mg/dL 0.1-1.0 Serum or plasma alkaline phosphatase sindhu surement (enzymatic activity/volume) 54 U/L 40-136 Serum or plasma aspartate aminotransfera se measurement (enzymatic activity/volume) 17 U/L 5-34 Serum or plasma alanine aminotransferase measurement (enzymatic activity/volume) 16 U/L 0-55 Serum or plasma protein measurement (mass/volume) 6.2 g/dL 6.4-8.2 Serum or plasma albumin measurement (mass/volume) 3.2 g/dL 3.2-4.5 Capillary blood glucose measurement by g lucometer (mass/volume) - 06/09/16 09:36 Capillary blood glucose measurement by glucometer (mas s/volume) 165 mg/dL 70-110 Capillary blood glucose measurement by g lucometer (mass/volume) - 06/09/16 11:55 Capillary blood glucose measurement by glucometer (mas s/volume) 199 mg/dL 70-110 Complete blood count (CBC) with automate d white blood cell (WBC) differential - 07/18/16 09:45 Blood leukocytes automated count (number/volume) 7.4 10*3/uL 4.3-11.0 Blood erythrocytes automated count (number/volume) 4.48 10*6/uL 4.35-5.85 Venous blood hemoglobin measurement (mass/volume) 11.2 g/dL 11.5-16.0 Blood hematocrit (volume fraction) 35 % 35-52 Automated erythrocyte mean corpuscular volume 78 [ foz_us] 80-99 Automated erythrocyte mean corpuscular h emoglobin (mass per erythrocyte) 25 pg 25-34 Automated erythrocyte mean corpuscular h emoglobin concentration measurement (mass/volume) 32 g/dL 32-36 Automated erythrocyte distribution width ratio 18. 0 % 10.0- 14.5 Automated blood platelet count (count/volume) 523 10*3/uL [...] 10*3 1.0-4.0 Blood monocytes automated count (number/volume) 0. 5 10*3 0.0-1.0 Automated eosinophil count 0.0 10*3/uL 0 .0-0.3 Automated blood basophil count (count/volume) 0.0 10*3/uL 0.0-0.1 Whole blood basic metabolic panel - 07/09 09:45 Serum or plasma sodium measurement (moles/volume) 140 mmol/L 135-145 Serum or plasma potassium measurement (moles/volume) 3.7 mmol/L 3.6-5.0 Serum or plasma chloride measurement (moles/volume) 108 mmol/L 98-107 Carbon dioxide 22 mmol/L 21-32 Serum or plasma anion gap determination (moles/volume) 10 mmol/L 5-14 Serum or plasma urea nitrogen measurement (mass/volume ) 10 mg/dL 7-18 Serum or plasma creatinine measurement (mass/volume) 0.73 mg/dL 0.60-1.30 Serum or plasma urea nitrogen/creatinine mass ratio 14 NRG Serum or plasma creatinine measurement w ith calculation of estimated glomerular filtration rate > NRG Serum or plasma glucose measurement (mass/volume) 112 mg/dL 70-105 Serum or plasma calcium measurement (mass/volume) 9.7 mg/dL 8.5-10.1 Methicillin resistant Staphylococcus aur eus (MRSA) screening culture - 07/18/16 09:45 Methicillin resistant Staphylococcus aureus (MRSA) scr eening culture NEG NRG Urine beta human chorionic gonadotropin (hCG) measurement - 07/25/16 08:25 Urine beta human chorionic gonadotropin (hCG) measurem ent NEGATIVE NEGATIVE Capillary blood glucose measurement by g lucometer (mass/volume) - 07/25/16 08:33 Capillary blood glucose measurement by glucometer (mas s/volume) 129 mg/dL 70-110 Capillary blood glucose measurement by g lucometer (mass/volume) - 07/25/16 16:08 Capillary blood glucose measurement by glucometer (mas s/volume) 259 mg/dL 70-110 Capillary blood glucose measurement by g lucometer (mass/volume) - 07/25/16 21:11 Capillary blood glucose measurement by glucometer (mas s/volume) 288 mg/dL 70-110 Capillary blood glucose measurement by g lucometer (mass/volume) - 07/26/16 05:48 Capillary blood glucose measurement by glucometer (mas s/volume) 191 mg/dL 70-110 Capillary blood glucose measurement by g lucometer (mass/volume) - 07/26/16 11:14 Capillary blood glucose measurement by glucometer (mas s/volume) 264 mg/dL 70-110 Complete blood count (CBC) with automate d white blood cell (WBC) differential - 07/28/16 15:55 Blood leukocytes automated count (number/volume) 11.6 10*3/uL 4.3-11.0 Blood erythrocytes automated count (number/volume) 3.67 10*6/uL 4.35-5.85 Venous blood hemoglobin measurement (mass/volume) 9.2 g/dL 11.5-16.0 Blood hematocrit (volume fraction) 30 % 35-52 Automated erythrocyte mean corpuscular volume 81 [ foz_us] 80-99 Automated erythrocyte mean corpuscular h emoglobin (mass per erythrocyte) 25 pg 25-34 Automated erythrocyte mean corpuscular h emoglobin concentration measurement (mass/volume) 31 g/dL 32-36 Automated erythrocyte distribution width ratio 18. 1 % 10.0- 14.5 Automated blood platelet count (count/volume) 510 10*3/uL [...] 10*3 1.0-4.0 Blood monocytes automated count (number/volume) 0. 8 10*3 0.0-1.0 Automated eosinophil count 0.0 10*3/uL 0 .0-0.3 Automated blood basophil count (count/volume) 0.0 10*3/uL 0.0-0.1 Comprehensive metabolic panel - 07/28/16 15:55 Serum or plasma sodium measurement (moles/volume) 137 mmol/L 135-145 Serum or plasma potassium measurement (moles/volume) 3.4 mmol/L 3.6-5.0 Serum or plasma chloride measurement (moles/volume) 102 mmol/L 98-107 Carbon dioxide 24 mmol/L 21-32 Serum or plasma anion gap determination (moles/volume) 11 mmol/L 5-14 Serum or plasma urea nitrogen measurement (mass/volume ) 5 mg/dL 7-18 Serum or plasma creatinine measurement (mass/volume) 0.73 mg/dL 0.60-1.30 Serum or plasma urea nitrogen/creatinine mass ratio 7 NRG Serum or plasma creatinine measurement w ith calculation of estimated glomerular filtration rate > NRG Serum or plasma glucose measurement (mass/volume) 234 mg/dL 70-105 Serum or plasma calcium measurement (mass/volume) 9.1 mg/dL 8.5-10.1 Serum or plasma total bilirubin measurement (mass/volu me) 0.6 mg/dL 0.1-1.0 Serum or plasma alkaline phosphatase sindhu surement (enzymatic activity/volume) 109 U/L 40-136 Serum or plasma aspartate aminotransfera se measurement (enzymatic activity/volume) 46 U/L 5-34 Serum or plasma alanine aminotransferase measurement (enzymatic activity/volume) 117 U/L 0-55 Serum or plasma protein measurement (mass/volume) 7.2 g/dL 6.4-8.2 Serum or plasma albumin measurement (mass/volume) 3.7 g/dL 3.2-4.5 Lipase - 07/28/16 15:55 Lipase 5 U/L 8-78 Capillary blood glucose measurement by g lucometer (mass/volume) - 07/29/16 00:42 Capillary blood glucose measurement by glucometer (mas s/volume) 175 mg/dL 70-110 Capillary blood glucose measurement by g lucometer (mass/volume) - 07/29/16 04:37 Capillary blood glucose measurement by glucometer (mas s/volume) 158 mg/dL 70-110 Complete blood count (CBC) with automate d white blood cell (WBC) differential - 07/29/16 05:20 Blood leukocytes automated count (number/volume) 11.1 10*3/uL 4.3-11.0 Blood erythrocytes automated count (number/volume) 3.28 10*6/uL 4.35-5.85 Venous blood hemoglobin measurement (mass/volume) 8.3 g/dL 11.5-16.0 Blood hematocrit (volume fraction) 27 % 35-52 Automated erythrocyte mean corpuscular volume 81 [ foz_us] 80-99 Automated erythrocyte mean corpuscular h emoglobin (mass per erythrocyte) 25 pg 25-34 Automated erythrocyte mean corpuscular h emoglobin concentration measurement (mass/volume) 31 g/dL 32-36 Automated erythrocyte distribution width ratio 17. 7 % 10.0- 14.5 Automated blood platelet count (count/volume) 436 10*3/uL [...] 10*3 1.0-4.0 Blood monocytes automated count (number/volume) 0. 9 10*3 0.0-1.0 Automated eosinophil count 0.1 10*3/uL 0 .0-0.3 Automated blood basophil count (count/volume) 0.0 10*3/uL 0.0-0.1 Comprehensive metabolic panel - 07/29/16 05:20 Serum or plasma sodium measurement (moles/volume) 138 mmol/L 135-145 Serum or plasma potassium measurement (moles/volume) 3.4 mmol/L 3.6-5.0 Serum or plasma chloride measurement (moles/volume) 105 mmol/L 98-107 Carbon dioxide 21 mmol/L 21-32 Serum or plasma anion gap determination (moles/volume) 12 mmol/L 5-14 Serum or plasma urea nitrogen measurement (mass/volume ) 5 mg/dL 7-18 Serum or plasma creatinine measurement (mass/volume) 0.56 mg/dL 0.60-1.30 Serum or plasma urea nitrogen/creatinine mass ratio 9 NRG Serum or plasma creatinine measurement w ith calculation of estimated glomerular filtration rate > NRG Serum or plasma glucose measurement (mass/volume) 160 mg/dL 70-105 Serum or plasma calcium measurement (mass/volume) 8.4 mg/dL 8.5-10.1 Serum or plasma total bilirubin measurement (mass/volu me) 0.5 mg/dL 0.1-1.0 Serum or plasma alkaline phosphatase sindhu surement (enzymatic activity/volume) 116 U/L 40-136 Serum or plasma aspartate aminotransfera se measurement (enzymatic activity/volume) 35 U/L 5-34 Serum or plasma alanine aminotransferase measurement (enzymatic activity/volume) 91 U/L 0-55 Serum or plasma protein measurement (mass/volume) 6.1 g/dL 6.4-8.2 Serum or plasma albumin measurement (mass/volume) 3.1 g/dL 3.2-4.5 Capillary blood glucose measurement by g lucometer (mass/volume) - 07/29/16 11:57 Capillary blood glucose measurement by glucometer (mas s/volume) 158 mg/dL 70-110 Capillary blood glucose measurement by g lucometer (mass/volume) - 07/29/16 18:47 Capillary blood glucose measurement by glucometer (mas s/volume) 282 mg/dL 70-110 Serum or plasma troponin i.cardiac measu rement (mass/volume) - 07/29/16 19:18 Serum or plasma troponin i.cardiac measurement (mass/v olume) < ng/mL <0.30 Serum or plasma troponin i.cardiac measu rement (mass/volume) - 07/29/16 19:18 Serum or plasma troponin i.cardiac measurement (mass/v olume) < ng/mL <0.30 Capillary blood glucose measurement by g lucometer (mass/volume) - 07/29/16 21:53 Capillary blood glucose measurement by glucometer (mas s/volume) 234 mg/dL 70-110 Serum or plasma troponin i.cardiac measu rement (mass/volume) - 07/30/16 00:55 Serum or plasma troponin i.cardiac measurement (mass/v olume) < ng/mL <0.30 Capillary blood glucose measurement by g lucometer (mass/volume) - 07/30/16 05:01 Capillary blood glucose measurement by glucometer (mas s/volume) 192 mg/dL 70-110 Capillary blood glucose measurement by g lucometer (mass/volume) - 07/30/16 10:44 Capillary blood glucose measurement by glucometer (mas s/volume) 177 mg/dL 70-110 Capillary blood glucose measurement by g lucometer (mass/volume) - 07/30/16 15:42 Capillary blood glucose measurement by glucometer (mas s/volume) 206 mg/dL 70-110 Capillary blood glucose measurement by g lucometer (mass/volume) - 07/30/16 20:34 Capillary blood glucose measurement by glucometer (mas s/volume) 241 mg/dL 70-110 Capillary blood glucose measurement by g lucometer (mass/volume) - 07/31/16 05:05 Capillary blood glucose measurement by glucometer (mas s/volume) 175 mg/dL 70-110 Complete blood count (CBC) with automate d white blood cell (WBC) differential - 07/31/16 06:00 Blood leukocytes automated count (number/volume) 9.0 10*3/uL 4.3-11.0 Blood erythrocytes automated count (number/volume) 3.10 10*6/uL 4.35-5.85 Venous blood hemoglobin measurement (mass/volume) 7.7 g/dL 11.5-16.0 Blood hematocrit (volume fraction) 25 % 35-52 Automated erythrocyte mean corpuscular volume 80 [ foz_us] 80-99 Automated erythrocyte mean corpuscular h emoglobin (mass per erythrocyte) 25 pg 25-34 Automated erythrocyte mean corpuscular h emoglobin concentration measurement (mass/volume) 31 g/dL 32-36 Automated erythrocyte distribution width ratio 17. 3 % 10.0- 14.5 Automated blood platelet count (count/volume) 460 10*3/uL [...] 10*3 1.0-4.0 Blood monocytes automated count (number/volume) 0. 6 10*3 0.0-1.0 Automated eosinophil count 0.1 10*3/uL 0 .0-0.3 Automated blood basophil count (count/volume) 0.0 10*3/uL 0.0-0.1 Comprehensive metabolic panel - 07/31/16 06:00 Serum or plasma sodium measurement (moles/volume) 138 mmol/L 135-145 Serum or plasma potassium measurement (moles/volume) 3.4 mmol/L 3.6-5.0 Serum or plasma chloride measurement (moles/volume) 106 mmol/L 98-107 Carbon dioxide 23 mmol/L 21-32 Serum or plasma anion gap determination (moles/volume) 9 mmol/L 5-14 Serum or plasma urea nitrogen measurement (mass/volume ) 3 mg/dL 7-18 Serum or plasma creatinine measurement (mass/volume) 0.57 mg/dL 0.60-1.30 Serum or plasma urea nitrogen/creatinine mass ratio 5 NRG Serum or plasma creatinine measurement w ith calculation of estimated glomerular filtration rate > NRG Serum or plasma glucose measurement (mass/volume) 207 mg/dL 70-105 Serum or plasma calcium measurement (mass/volume) 8.5 mg/dL 8.5-10.1 Serum or plasma total bilirubin measurement (mass/volu me) 0.3 mg/dL 0.1-1.0 Serum or plasma alkaline phosphatase sindhu surement (enzymatic activity/volume) 93 U/L 40-136 Serum or plasma aspartate aminotransfera se measurement (enzymatic activity/volume) 11 U/L 5-34 Serum or plasma alanine aminotransferase measurement (enzymatic activity/volume) 47 U/L 0-55 Serum or plasma protein measurement (mass/volume) 6.1 g/dL 6.4-8.2 Serum or plasma albumin measurement (mass/volume) 2.9 g/dL 3.2-4.5 Magnesium - 07/31/16 06:00 Magnesium 1.6 mg/dL 1.8-2.4 Capillary blood glucose measurement by g lucometer (mass/volume) - 07/31/16 10:54 Capillary blood glucose measurement by glucometer (mas s/volume) 267 mg/dL 70-110 Capillary blood glucose measurement by g lucometer (mass/volume) - 07/31/16 16:17 Capillary blood glucose measurement by glucometer (mas s/volume) 167 mg/dL 70-110 Capillary blood glucose measurement by g lucometer (mass/volume) - 07/31/16 20:56 Capillary blood glucose measurement by glucometer (mas s/volume) 219 mg/dL 70-110 Capillary blood glucose measurement by g lucometer (mass/volume) - 08/01/16 05:24 Capillary blood glucose measurement by glucometer (mas s/volume) 189 mg/dL 70-110 Automated blood complete blood count (he mogram) panel - 08/01/16 09:37 Blood leukocytes automated count (number/volume) 9.5 10*3/uL 4.3-11.0 Blood erythrocytes automated count (number/volume) 3.60 10*6/uL 4.35-5.85 Venous blood hemoglobin measurement (mass/volume) 8.9 g/dL 11.5-16.0 Blood hematocrit (volume fraction) 29 % 35-52 Automated erythrocyte mean corpuscular volume 81 [ foz_us] 80-99 Automated erythrocyte mean corpuscular h emoglobin (mass per erythrocyte) 25 pg 25-34 Automated erythrocyte mean corpuscular h emoglobin concentration measurement (mass/volume) 31 g/dL 32-36 Automated erythrocyte distribution width ratio 17. 6 % 10.0- 14.5 Automated blood platelet count (count/volume) 454 10*3/uL 130-400 Automated blood platelet mean volume measurement 10.2 [foz_us] 7.4-10.4 Capillary blood glucose measurement by g lucometer (mass/volume) - 08/01/16 11:31 Capillary blood glucose measurement by glucometer (mas s/volume) 235 mg/dL 70-110 Capillary blood glucose measurement by g lucometer (mass/volume) - 08/01/16 15:48 Capillary blood glucose measurement by glucometer (mas s/volume) 249 mg/dL 70-110 Complete urinalysis with reflex to cultu re - 12/02/16 21:25 Urine color determination YELLOW NRG Urine clarity determination CLEAR NR G Urine pH measurement by test strip 5 5-9 Specific gravity of urine by test strip 1.025 1.016-1.022 Urine protein assay by test strip, semi-quantitative 2+ NEGATIVE Urine glucose detection by automated test strip 2+ NEGATIVE Erythrocytes detection in urine sediment by light micr oscopy NEGATIVE NEGATIVE Urine ketones detection by automated test strip 1+ NEGATIVE Urine nitrite detection by test strip NEGATIVE NEGATIVE Urine total bilirubin detection by test strip NEGA TIVE NEGATIVE Urine urobilinogen measurement by automated test strip (mass/volume) NORMAL NORMAL Urine leukocyte esterase detection by dipstick 2+ NEGATIVE Automated urine sediment erythrocyte cou nt by microscopy (number/high power field) NONE NRG Automated urine sediment leukocyte count by microscopy (number/high power field) [HPF] NRG Bacteria detection in urine sediment by light microsco py FEW NRG Squamous epithelial cells detection in u rine sediment by light microscopy 2-5 NRG Crystals detection in urine sediment by light microsco py NONE NRG Casts detection in urine sediment by light microscopy NONE NRG Mucus detection in urine sediment by light microscopy MODERATE NRG Complete urinalysis with reflex to culture YES NRG Bacterial urine culture - 12/02/16 21:25 Bacterial urine culture [id number] NRG COLONY COUNT 10,000/ML - 100,000/ML NRG FTX;REPORTABLE SENSITIVITY REPORTED AT 1019, 9-- 17 NR URINE CULTURE RESULTS PLUS NRG Bacterial susceptibility panel - 7 21:25 Oxacillin susceptibility test by minimum inhibitory co ncentration <= NRG Gentamicin susceptibility test by minimum inhibitory c oncentration <= NRG Trimethoprim/sulfamethoxazole susceptibi lity test by minimum inhibitoryconcentration <= NRG Vancomycin susceptibility test by minimum inhibitory c oncentration <= NRG Levofloxacin susceptibility test by minimum inhibitory concentration <= NRG Rifampin susceptibility test by minimum inhibitory con centration <= NRG Tetracycline susceptibility test by minimum inhibitory concentration <= NRG Complete blood count (CBC) with automate d white blood cell (WBC) differential - 12/02/16 22:25 Blood leukocytes automated count (number/volume) 9.2 10*3/uL 4.3-11.0 Blood erythrocytes automated count (number/volume) 4.09 10*6/uL 4.35-5.85 Venous blood hemoglobin measurement (mass/volume) 10.3 g/dL 11.5-16.0 Blood hematocrit (volume fraction) 33 % 35-52 Automated erythrocyte mean corpuscular volume 80 [ foz_us] 80-99 Automated erythrocyte mean corpuscular h emoglobin (mass per erythrocyte) 25 pg 25-34 Automated erythrocyte mean corpuscular h emoglobin concentration measurement (mass/volume) 32 g/dL 32-36 Automated erythrocyte distribution width ratio 15. 8 % 10.0- 14.5 Automated blood platelet count (count/volume) 486 10*3/uL [...] 10*3 1.0-4.0 Blood monocytes automated count (number/volume) 0. 8 10*3 0.0-1.0 Automated eosinophil count 0.1 10*3/uL 0 .0-0.3 Automated blood basophil count (count/volume) 0.0 10*3/uL 0.0-0.1 Comprehensive metabolic panel - 12/02/16 22:25 Serum or plasma sodium measurement (moles/volume) 141 mmol/L 135-145 Serum or plasma potassium measurement (moles/volume) 3.7 mmol/L 3.6-5.0 Serum or plasma chloride measurement (moles/volume) 108 mmol/L 98-107 Carbon dioxide 21 mmol/L 21-32 Serum or plasma anion gap determination (moles/volume) 12 mmol/L 5-14 Serum or plasma urea nitrogen measurement (mass/volume ) 10 mg/dL 7-18 Serum or plasma creatinine measurement (mass/volume) 1.03 mg/dL 0.60-1.30 Serum or plasma urea nitrogen/creatinine mass ratio 10 NRG Serum or plasma creatinine measurement w ith calculation of estimated glomerular filtration rate 58 NRG Serum or plasma glucose measurement (mass/volume) 138 mg/dL 70-105 Serum or plasma calcium measurement (mass/volume) 9.4 mg/dL 8.5-10.1 Serum or plasma total bilirubin measurement (mass/volu me) 0.3 mg/dL 0.1-1.0 Serum or plasma alkaline phosphatase sindhu surement (enzymatic activity/volume) 71 U/L 40-136 Serum or plasma aspartate aminotransfera se measurement (enzymatic activity/volume) 14 U/L 5-34 Serum or plasma alanine aminotransferase measurement (enzymatic activity/volume) 15 U/L 0-55 Serum or plasma protein measurement (mass/volume) 8.0 g/dL 6.4-8.2 Serum or plasma albumin measurement (mass/volume) 4.2 g/dL 3.2-4.5 Magnesium - 12/02/16 22:25 Magnesium 1.9 mg/dL 1.8-2.4 Serum or plasma amylase measurement (enz ymatic activity/volume) - 12/02/16 22:25 Serum or plasma amylase measurement (enzymatic activit y/volume) 38 U/L 25-125 Lipase - 12/02/16 22:25 Lipase 47 U/L 8-78 Urine beta human chorionic gonadotropin (hCG) measurement - 01/14/17 07:55 Urine beta human chorionic gonadotropin (hCG) measurem ent NEGATIVE NEGATIVE Capillary blood glucose measurement by g lucometer (mass/volume) - 01/14/17 09:23 Capillary blood glucose measurement by glucometer (mas s/volume) 163 mg/dL 70-110 TSH - 02/11/17 09:03 TSH 1.74 mIU/L NRG CBC - 02/25/17 10:15 WHITE BLOOD CELL COUNT 6.1 Thousand/uL 3 .8-10.8 RED BLOOD CELL COUNT 3.83 Million/uL 3.8 0-5.10 HEMOGLOBIN 9.8 g/dL 11.7-15.5 HEMATOCRIT 32.6 % 35.0-45.0 MCV 85.1 fL 80.0-100.0 MCH 25.6 pg 27.0-33.0 MCHC 30.1 g/dL 32.0-36.0 RDW 16.8 % 11.0-15.0 PLATELET COUNT 474 Thousand/uL 140-400 MPV 9.9 fL 7.5-12.5 ABSOLUTE NEUTROPHILS 3361 cells/uL 1500- 7800 ABSOLUTE LYMPHOCYTES 2159 cells/uL 850-3 900 ABSOLUTE MONOCYTES 464 cells/uL 200-950 ABSOLUTE EOSINOPHILS 73 cells/uL 15-500 ABSOLUTE BASOPHILS 43 cells/uL 0-200 NEUTROPHILS 55.1 % NRG LYMPHOCYTES 35.4 % NRG MONOCYTES 7.6 % NRG EOSINOPHILS 1.2 % NRG BASOPHILS 0.7 % NRG CBC - 07/22/17 09:44 WHITE BLOOD CELL COUNT 6.4 Thousand/uL 3 .8-10.8 RED BLOOD CELL COUNT 4.18 Million/uL 3.8 0-5.10 HEMOGLOBIN 12.8 g/dL 11.7-15.5 HEMATOCRIT 38.7 % 35.0-45.0 MCV 92.6 fL 80.0-100.0 MCH 30.6 pg 27.0-33.0 MCHC 33.1 g/dL 32.0-36.0 RDW 12.7 % 11.0-15.0 PLATELET COUNT 371 Thousand/uL 140-400 MPV 9.5 fL 7.5-12.5 ABSOLUTE NEUTROPHILS 3270 cells/uL 1500- 7800 ABSOLUTE LYMPHOCYTES 2470 cells/uL 850-3 900 ABSOLUTE MONOCYTES 538 cells/uL 200-950 ABSOLUTE EOSINOPHILS 83 cells/uL 15-500 ABSOLUTE BASOPHILS 38 cells/uL 0-200 NEUTROPHILS 51.1 % NRG LYMPHOCYTES 38.6 % NRG MONOCYTES 8.4 % NRG EOSINOPHILS 1.3 % NRG BASOPHILS 0.6 % NRG SUREPATH PAP AND HPV mRNA E6/E7 - 11:13 CLINICAL INFORMATION: NRG LMP: 08/02/17 NRG PREV. PAP: 06/2009 NRG PREV. BX: NO NRG SOURCE: [employer]erv[employer] NRG STATEMENT OF ADEQUACY: NRG INTERPRETATION/RESULT: NRG PATTERNMAKER BENCH: NRG HPV mRNA E6/E7, SUREPATH VIAL Not Detected NOT DETECTED COMMENT NRG CULTURE, GENITAL - 08/09/17 11:13 CULTURE, GENITAL SEE NOTE NRG Complete blood count (CBC) with automate d white blood cell (WBC) differential - 02/16/18 17:10 Blood leukocytes automated count (number/volume) 8.1 10*3/uL 4.3-11.0 Blood erythrocytes automated count (number/volume) 4.24 10*6/uL 4.35-5.85 Venous blood hemoglobin measurement (mass/volume) 12.3 g/dL 11.5-16.0 Blood hematocrit (volume fraction) 37 % 35-52 Automated erythrocyte mean corpuscular volume 88 [ foz_us] 80-99 Automated erythrocyte mean corpuscular h emoglobin (mass per erythrocyte) 29 pg 25-34 Automated erythrocyte mean corpuscular h emoglobin concentration measurement (mass/volume) 33 g/dL 32-36 Automated erythrocyte distribution width ratio 13. 7 % 10.0- 14.5 Automated blood platelet count (count/volume) 387 10*3/uL 130-400 Automated blood platelet mean volume measurement 9.9 [foz_us] 7.4-10.4 Automated blood neutrophils/100 leukocytes 64 % 42-75 Automated blood lymphocytes/100 leukocytes 28 % 12-44 Blood monocytes/100 leukocytes 7 % 0-12 Automated blood eosinophils/100 leukocytes 1 % 0-10 Automated blood basophils/100 leukocytes 1 % 0-10 Blood neutrophils automated count (number/volume) 5.1 10*3 1.8-7.8 Blood lymphocytes automated count (number/volume) 2.3 10*3 1.0-4.0 Blood monocytes automated count (number/volume) 0. 5 10*3 0.0-1.0 Automated eosinophil count 0.1 10*3/uL 0 .0-0.3 Automated blood basophil count (count/volume) 0.0 10*3/uL 0.0-0.1 Complete blood count (CBC) with automate d white blood cell (WBC) differential - 05/26/18 20:25 Blood leukocytes automated count (number/volume) 9.3 10*3/uL 4.3-11.0 Blood erythrocytes automated count (number/volume) 3.83 10*6/uL 4.35-5.85 Venous blood hemoglobin measurement (mass/volume) 11.4 g/dL 11.5-16.0 Blood hematocrit (volume fraction) 34 % 35-52 Automated erythrocyte mean corpuscular volume 89 [ foz_us] 80-99 Automated erythrocyte mean corpuscular h emoglobin (mass per erythrocyte) 30 pg 25-34 Automated erythrocyte mean corpuscular h emoglobin concentration measurement (mass/volume) 33 g/dL 32-36 Automated erythrocyte distribution width ratio 15. 1 % 10.0- 14.5 Automated blood platelet count (count/volume) 429 10*3/uL 130-400 Automated blood platelet mean volume measurement 9.5 [foz_us] 7.4-10.4 Automated blood neutrophils/100 leukocytes 58 % 42-75 Automated blood lymphocytes/100 leukocytes 33 % 12-44 Blood monocytes/100 leukocytes 8 % 0-12 Automated blood eosinophils/100 leukocytes 1 % 0-10 Automated blood basophils/100 leukocytes 0 % 0-10 Blood neutrophils automated count (number/volume) 5.4 10*3 1.8-7.8 Blood lymphocytes automated count (number/volume) 3.1 10*3 1.0-4.0 Blood monocytes automated count (number/volume) 0. 7 10*3 0.0-1.0 Automated eosinophil count 0.1 10*3/uL 0 .0-0.3 Automated blood basophil count (count/volume) 0.0 10*3/uL 0.0-0.1 Comprehensive metabolic panel - 05/26/18 20:25 Serum or plasma sodium measurement (moles/volume) 135 mmol/L 135-145 Serum or plasma potassium measurement (moles/volume) 3.8 mmol/L 3.6-5.0 Serum or plasma chloride measurement (moles/volume) 108 mmol/L 98-107 Carbon dioxide 18 mmol/L 21-32 Serum or plasma anion gap determination (moles/volume) 9 mmol/L 5-14 Serum or plasma urea nitrogen measurement (mass/volume ) 16 mg/dL 7-18 Serum or plasma creatinine measurement (mass/volume) 0.81 mg/dL 0.60-1.30 Serum or plasma urea nitrogen/creatinine mass ratio 20 NRG Serum or plasma creatinine measurement w ith calculation of estimated glomerular filtration rate > NRG Serum or plasma glucose measurement (mass/volume) 99 mg/dL 70-105 Serum or plasma calcium measurement (mass/volume) 8.7 mg/dL 8.5-10.1 Serum or plasma total bilirubin measurement (mass/volu me) 0.2 mg/dL 0.1-1.0 Serum or plasma alkaline phosphatase sindhu surement (enzymatic activity/volume) 51 U/L 40-136 Serum or plasma aspartate aminotransfera se measurement (enzymatic activity/volume) 14 U/L 5-34 Serum or plasma alanine aminotransferase measurement (enzymatic activity/volume) 8 U/L 0-55 Serum or plasma protein measurement (mass/volume) 7.0 g/dL 6.4-8.2 Serum or plasma albumin measurement (mass/volume) 4.0 g/dL 3.2-4.5 CALCIUM CORRECTED 8.7 mg/dL 8.5-10.1 Serum or plasma amylase measurement (enz ymatic activity/volume) - 05/26/18 20:25 Serum or plasma amylase measurement (enzymatic activit y/volume) 64 U/L 25-125 Lipase - 05/26/18 20:25 Lipase 52 U/L 8-78 Complete urinalysis with reflex to cultu re - 05/26/18 21:21 Urine color determination YELLOW NRG Urine clarity determination SLIGHTLY CLOUDY NRG Urine pH measurement by test strip 5 5-9 Specific gravity of urine by test strip 1.015 1.016-1.022 Urine protein assay by test strip, semi-quantitative 1+ NEGATIVE Urine glucose detection by automated test strip NE GATIVE NEGATIVE Erythrocytes detection in urine sediment by light micr oscopy 1+ NEGATIVE Urine ketones detection by automated test strip NE GATIVE NEGATIVE Urine nitrite detection by test strip NEGATIVE NEGATIVE Urine total bilirubin detection by test strip NEGA TIVE NEGATIVE Urine urobilinogen measurement by automated test strip (mass/volume) NORMAL NORMAL Urine leukocyte esterase detection by dipstick 1+ NEGATIVE Automated urine sediment erythrocyte cou nt by microscopy (number/high power field) RARE NRG Automated urine sediment leukocyte count by microscopy (number/high power field) RARE NRG Bacteria detection in urine sediment by light microsco py TRACE NRG Squamous epithelial cells detection in u rine sediment by light microscopy 5-10 NRG Crystals detection in urine sediment by light microsco py NONE NRG Casts detection in urine sediment by light microscopy PRESENT NRG Mucus detection in urine sediment by light microscopy NEGATIVE NRG Complete urinalysis with reflex to culture NO NRG Hyaline casts detection in urine sediment by light amita roscopy RARE NRG Urine beta human chorionic gonadotropin (hCG) measurement - 06/17/18 10:25 Urine beta human chorionic gonadotropin (hCG) measurem ent NEGATIVE NEGATIVE Capillary blood glucose measurement by g lucometer (mass/volume) - 06/17/18 10:45 Capillary blood glucose measurement by glucometer (mas s/volume) 195 mg/dL 70-110 Methicillin resistant Staphylococcus aur eus (MRSA) screening culture - 06/17/18 11:05 Methicillin resistant Staphylococcus aureus (MRSA) scr eening culture NEG NRG Capillary blood glucose measurement by g lucometer (mass/volume) - 06/17/18 13:25 Capillary blood glucose measurement by glucometer (mas s/volume) 194 mg/dL 70-110 Complete blood count (CBC) with automate d white blood cell (WBC) differential - 10/04/18 20:30 Blood leukocytes automated count (number/volume) 7.0 10*3/uL 4.3-11.0 Blood erythrocytes automated count (number/volume) 3.95 10*6/uL 4.35-5.85 Venous blood hemoglobin measurement (mass/volume) 11.3 g/dL 11.5-16.0 Blood hematocrit (volume fraction) 34 % 35-52 Automated erythrocyte mean corpuscular volume 86 [ foz_us] 80-99 Automated erythrocyte mean corpuscular h emoglobin (mass per erythrocyte) 29 pg 25-34 Automated erythrocyte mean corpuscular h emoglobin concentration measurement (mass/volume) 33 g/dL 32-36 Automated erythrocyte distribution width ratio 15. 8 % 10.0- 14.5 Automated blood platelet count (count/volume) 395 10*3/uL 130-400 Automated blood platelet mean volume measurement 9.8 [foz_us] 7.4-10.4 Automated blood neutrophils/100 leukocytes 49 % 42-75 Automated blood lymphocytes/100 leukocytes 44 % 12-44 Blood monocytes/100 leukocytes 6 % 0-12 Automated blood eosinophils/100 leukocytes 1 % 0-10 Automated blood basophils/100 leukocytes 1 % 0-10 Blood neutrophils automated count (number/volume) 3.4 10*3 1.8-7.8 Blood lymphocytes automated count (number/volume) 3.0 10*3 1.0-4.0 Blood monocytes automated count (number/volume) 0. 4 10*3 0.0-1.0 Automated eosinophil count 0.1 10*3/uL 0 .0-0.3 Automated blood basophil count (count/volume) 0.0 10*3/uL 0.0-0.1 PT panel in platelet poor plasma by coag ulation assay - 10/04/18 20:30 Prothrombin time (PT) in platelet poor plasma by coagu lation assay 12.8 s 12.2-14.7 INR in platelet poor plasma or blood by coagulation as say 0.9 0.8-1.4 Activated partial thromboplastin time (a PTT) in platelet poor plasma bycoagulation assay - 10/04/18 20:30 Activated partial thromboplastin time (a PTT) in platelet poor plasma bycoagulation assay 28 s 24-35 Serum or plasma ethanol measurement (mas s/volume) - 10/04/18 20:30 Serum or plasma ethanol measurement (mass/volume) < mg/dL <10 Comprehensive metabolic panel - 10/04/18 20:30 Serum or plasma sodium measurement (moles/volume) 140 mmol/L 135-145 Serum or plasma potassium measurement (moles/volume) 3.4 mmol/L 3.6-5.0 Serum or plasma chloride measurement (moles/volume) 108 mmol/L 98-107 Carbon dioxide 21 mmol/L 21-32 Serum or plasma anion gap determination (moles/volume) 11 mmol/L 5-14 Serum or plasma urea nitrogen measurement (mass/volume ) 10 mg/dL 7-18 Serum or plasma creatinine measurement (mass/volume) 0.77 mg/dL 0.60-1.30 Serum or plasma urea nitrogen/creatinine mass ratio 13 NRG Serum or plasma creatinine measurement w ith calculation of estimated glomerular filtration rate > NRG Serum or plasma glucose measurement (mass/volume) 143 mg/dL 70-105 Serum or plasma calcium measurement (mass/volume) 9.3 mg/dL 8.5-10.1 Serum or plasma total bilirubin measurement (mass/volu me) 0.2 mg/dL 0.1-1.0 Serum or plasma alkaline phosphatase sindhu surement (enzymatic activity/volume) 71 U/L 40-136 Serum or plasma aspartate aminotransfera se measurement (enzymatic activity/volume) 17 U/L 5-34 Serum or plasma alanine aminotransferase measurement (enzymatic activity/volume) 11 U/L 0-55 Serum or plasma protein measurement (mass/volume) 7.4 g/dL 6.4-8.2 Serum or plasma albumin measurement (mass/volume) 4.1 g/dL 3.2-4.5 CALCIUM CORRECTED 9.2 mg/dL 8.5-10.1 Magnesium - 10/04/18 20:30 Magnesium 2.1 mg/dL 1.8-2.4 Serum or plasma troponin i.cardiac measu rement (mass/volume) - 10/04/18 20:30 Serum or plasma troponin i.cardiac measurement (mass/v olume) < ng/mL <0.028 Myoglobin, serum - 10/04/18 20:30 Myoglobin, serum 33.9 ng/mL 10.0-92.0 Serum or plasma choriogonadotropin (preg rosie test) detection - 10/04/18 20:30 Serum or plasma choriogonadotropin ( test) de tection NEGATIVE NEGATIVE Serum or plasma amylase measurement (enz ymatic activity/volume) - 10/04/18 20:30 Serum or plasma amylase measurement (enzymatic activit y/volume) 39 U/L 25-125 Lipase - 10/04/18 20:30 Lipase 33 U/L 8-78 Serum or plasma lithium measurement (mol es/volume) - 10/04/18 20:30 BNP PT 79.0 pg/mL <100.0 Complete urinalysis with reflex to cultu re - 10/04/18 20:52 Urine color determination YELLOW NRG Urine clarity determination SLIGHTLY CLOUDY NRG Urine pH measurement by test strip 5 5-9 Specific gravity of urine by test strip 1.025 1.016-1.022 Urine protein assay by test strip, semi-quantitative 1+ NEGATIVE Urine glucose detection by automated test strip 3+ NEGATIVE Erythrocytes detection in urine sediment by light micr oscopy 4+ NEGATIVE Urine ketones detection by automated test strip 1+ NEGATIVE Urine nitrite detection by test strip NEGATIVE NEGATIVE Urine total bilirubin detection by test strip NEGA TIVE NEGATIVE Urine urobilinogen measurement by automated test strip (mass/volume) NORMAL NORMAL Urine leukocyte esterase detection by dipstick 2+ NEGATIVE Automated urine sediment erythrocyte cou nt by microscopy (number/high power field) RARE NRG Automated urine sediment leukocyte count by microscopy (number/high power field) [HPF] NRG Bacteria detection in urine sediment by light microsco py MODERATE NRG Squamous epithelial cells detection in u rine sediment by light microscopy 10-25 NRG Crystals detection in urine sediment by light microsco py NONE NRG Casts detection in urine sediment by light microscopy NONE NRG Mucus detection in urine sediment by light microscopy SMALL NRG Complete urinalysis with reflex to culture YES NRG Urine drug screening test - 10/04/18 20: 52 Urine phencyclidine detection by screening method NEGATIVE NEGATIVE Urine benzodiazepines detection by screening method NEGATIVE NEGATIVE Urine cocaine detection NEGATIVE NEGATI VE Urine amphetamines detection by screening method N EGATIVE NEGATIVE Urine methamphetamine detection by screening method NEGATIVE NEGATIVE Urine cannabinoids detection by screening method N EGATIVE NEGATIVE Urine opiates detection by screening method POSITI VE NEGATIVE Urine barbiturates detection NEGATIVE N EGATIVE Screening urine tricyclic antidepressants detection NEGATIVE NEGATIVE Urine methadone detection by screening method NEGA TIVE NEGATIVE Urine oxycodone detection NEGATIVE NEGA TIVE Urine propoxyphene detection NEGATIVE N EGATIVE Bacterial urine culture - 10/04/18 20:52 Bacterial urine culture 3 OR MORE NRG COLONY COUNT >100,000/ML NRG FTX;REPORTABLE GRAM POSITIVE SUGGESTING PROBABLE NRG FREE TEXT ENTRY 2 COLLECTION CONTAMINATION WITH SK IN CAROLYN NRG FREE TEXT ENTRY 3 NO SUSCEPTIBILITY PERFORMED NRG Complete blood count (CBC) with automate d white blood cell (WBC) differential - 11/22/18 21:04 Blood leukocytes automated count (number/volume) 8.6 10*3/uL 4.3-11.0 Blood erythrocytes automated count (number/volume) 4.33 10*6/uL 4.35-5.85 Venous blood hemoglobin measurement (mass/volume) 12.3 g/dL 11.5-16.0 Blood hematocrit (volume fraction) 37 % 35-52 Automated erythrocyte mean corpuscular volume 86 [ foz_us] 80-99 Automated erythrocyte mean corpuscular h emoglobin (mass per erythrocyte) 28 pg 25-34 Automated erythrocyte mean corpuscular h emoglobin concentration measurement (mass/volume) 33 g/dL 32-36 Automated erythrocyte distribution width ratio 14. 7 % 10.0- 14.5 Automated blood platelet count (count/volume) 380 10*3/uL 130-400 Automated blood platelet mean volume measurement 9.9 [foz_us] 7.4-10.4 Automated blood neutrophils/100 leukocytes 62 % 42-75 Automated blood lymphocytes/100 leukocytes 31 % 12-44 Blood monocytes/100 leukocytes 6 % 0-12 Automated blood eosinophils/100 leukocytes 1 % 0-10 Automated blood basophils/100 leukocytes 0 % 0-10 Blood neutrophils automated count (number/volume) 5.3 10*3 1.8-7.8 Blood lymphocytes automated count (number/volume) 2.7 10*3 1.0-4.0 Blood monocytes automated count (number/volume) 0. 5 10*3 0.0-1.0 Automated eosinophil count 0.1 10*3/uL 0 .0-0.3 Automated blood basophil count (count/volume) 0.0 10*3/uL 0.0-0.1 Comprehensive metabolic panel - 11/22/18 21:04 Serum or plasma sodium measurement (moles/volume) 138 mmol/L 135-145 Serum or plasma potassium measurement (moles/volume) 3.2 mmol/L 3.6-5.0 Serum or plasma chloride measurement (moles/volume) 110 mmol/L 98-107 Carbon dioxide 19 mmol/L 21-32 Serum or plasma anion gap determination (moles/volume) 9 mmol/L 5-14 Serum or plasma urea nitrogen measurement (mass/volume ) 9 mg/dL 7-18 Serum or plasma creatinine measurement (mass/volume) 0.75 mg/dL 0.60-1.30 Serum or plasma urea nitrogen/creatinine mass ratio 12 NRG Serum or plasma creatinine measurement w ith calculation of estimated glomerular filtration rate > NRG Serum or plasma glucose measurement (mass/volume) 118 mg/dL 70-105 Serum or plasma calcium measurement (mass/volume) 9.0 mg/dL 8.5-10.1 Serum or plasma total bilirubin measurement (mass/volu me) 0.2 mg/dL 0.1-1.0 Serum or plasma alkaline phosphatase sindhu surement (enzymatic activity/volume) 78 U/L 40-136 Serum or plasma aspartate aminotransfera se measurement (enzymatic activity/volume) 16 U/L 5-34 Serum or plasma alanine aminotransferase measurement (enzymatic activity/volume) 11 U/L 0-55 Serum or plasma protein measurement (mass/volume) 7.9 g/dL 6.4-8.2 Serum or plasma albumin measurement (mass/volume) 4.2 g/dL 3.2-4.5 CALCIUM CORRECTED 8.8 mg/dL 8.5-10.1 Lipase - 11/22/18 21:04 Lipase 25 U/L 8-78 Complete urinalysis with reflex to cultu re - 11/22/18 21:09 Urine color determination YELLOW NRG Urine clarity determination SL CLOUDY N RG Urine pH measurement by test strip 5 5-9 Specific gravity of urine by test strip 1.025 1.016-1.022 Urine protein assay by test strip, semi-quantitative 1+ NEGATIVE Urine glucose detection by automated test strip 3+ NEGATIVE Erythrocytes detection in urine sediment by light micr oscopy NEGATIVE NEGATIVE Urine ketones detection by automated test strip NE GATIVE NEGATIVE Urine nitrite detection by test strip NEGATIVE NEGATIVE Urine total bilirubin detection by test strip NEGA TIVE NEGATIVE Urine urobilinogen measurement by automated test strip (mass/volume) NORMAL NORMAL Urine leukocyte esterase detection by dipstick 3+ NEGATIVE Automated urine sediment erythrocyte cou nt by microscopy (number/high power field) NONE NRG Automated urine sediment leukocyte count by microscopy (number/high power field) [HPF] NRG Bacteria detection in urine sediment by light microsco py TRACE NRG Squamous epithelial cells detection in u rine sediment by light microscopy 10-25 NRG Crystals detection in urine sediment by light microsco py PRESENT NRG Casts detection in urine sediment by light microscopy NONE NRG Mucus detection in urine sediment by light microscopy MODERATE NRG Complete urinalysis with reflex to culture NO NRG Yeast detection in urine sediment by light microscopy FEW NRG Calcium oxalate crystals detection in ur ine sediment by light microscopy MODERATE NRG Urine beta human chorionic gonadotropin (hCG) measurement - 11/22/18 21:09 Urine beta human chorionic gonadotropin (hCG) measurem ent NEGATIVE NEGATIVE Complete urinalysis with reflex to cultu re - 03/22/19 20:30 Urine color determination YELLOW NRG Urine clarity determination CLEAR NR G Urine pH measurement by test strip 5.5 5-9 Specific gravity of urine by test strip >= 1.016-1.022 Urine protein assay by test strip, semi-quantitative NEGATIVE NEGATIVE Urine glucose detection by automated test strip 1+ NEGATIVE Erythrocytes detection in urine sediment by light micr oscopy NEGATIVE NEGATIVE Urine ketones detection by automated test strip NE GATIVE NEGATIVE Urine nitrite detection by test strip NEGATIVE NEGATIVE Urine total bilirubin detection by test strip NEGA TIVE NEGATIVE Urine urobilinogen measurement by automated test strip (mass/volume) 0.2 mg/dL < = 1.0 Urine leukocyte esterase detection by dipstick NEG ATIVE NEGATIVE Automated urine sediment erythrocyte cou nt by microscopy (number/high power field) NONE NRG Automated urine sediment leukocyte count by microscopy (number/high power field) [HPF] NRG Bacteria detection in urine sediment by light microsco py FEW NRG Squamous epithelial cells detection in u rine sediment by light microscopy 10-25 NRG Crystals detection in urine sediment by light microsco py NONE NRG Casts detection in urine sediment by light microscopy NONE NRG Mucus detection in urine sediment by light microscopy NEGATIVE NRG Complete urinalysis with reflex to culture YES NRG Yeast detection in urine sediment by light microscopy FEW NRG Bacterial urine culture - 03/22/19 20:30 Bacterial urine culture 3 OR MORE NRG COLONY COUNT 30,000 CFU/ML NRG FTX;REPORTABLE (GRAM POSITIVE) SUGGESTING PROBABLE NRG FREE TEXT ENTRY 2 COLLECTION CONTAMINATION WITH SK IN CAROLYN NRG Complete blood count (CBC) with automate d white blood cell (WBC) differential - 04/05/19 23:20 Blood leukocytes automated count (number/volume) 6.2 10*3/uL 4.3-11.0 Blood erythrocytes automated count (number/volume) 3.91 10*6/uL 4.35-5.85 Venous blood hemoglobin measurement (mass/volume) 11.1 g/dL 11.5-16.0 Blood hematocrit (volume fraction) 34 % 35-52 Automated erythrocyte mean corpuscular volume 86 [ foz_us] 80-99 Automated erythrocyte mean corpuscular h emoglobin (mass per erythrocyte) 28 pg 25-34 Automated erythrocyte mean corpuscular h emoglobin concentration measurement (mass/volume) 33 g/dL 32-36 Automated erythrocyte distribution width ratio 16. 0 % 10.0- 14.5 Automated blood platelet count (count/volume) 492 10*3/uL 130-400 Automated blood platelet mean volume measurement 9.2 [foz_us] 7.4-10.4 Automated blood neutrophils/100 leukocytes 47 % 42-75 Automated blood lymphocytes/100 leukocytes 43 % 12-44 Blood monocytes/100 leukocytes 8 % 0-12 Automated blood eosinophils/100 leukocytes 2 % 0-10 Automated blood basophils/100 leukocytes 0 % 0-10 Blood neutrophils automated count (number/volume) 2.9 10*3 1.8-7.8 Blood lymphocytes automated count (number/volume) 2.7 10*3 1.0-4.0 Blood monocytes automated count (number/volume) 0. 5 10*3 0.0-1.0 Automated eosinophil count 0.1 10*3/uL 0 .0-0.3 Automated blood basophil count (count/volume) 0.0 10*3/uL 0.0-0.1 Comprehensive metabolic panel - 04/05/19 23:20 Serum or plasma sodium measurement (moles/volume) 139 mmol/L 135-145 Serum or plasma potassium measurement (moles/volume) 3.5 mmol/L 3.6-5.0 Serum or plasma chloride measurement (moles/volume) 108 mmol/L 98-107 Carbon dioxide 20 mmol/L 21-32 Serum or plasma anion gap determination (moles/volume) 11 mmol/L 5-14 Serum or plasma urea nitrogen measurement (mass/volume ) 8 mg/dL 7-18 Serum or plasma creatinine measurement (mass/volume) 0.73 mg/dL 0.60-1.30 Serum or plasma urea nitrogen/creatinine mass ratio 11 NRG Serum or plasma creatinine measurement w ith calculation of estimated glomerular filtration rate > NRG Serum or plasma glucose measurement (mass/volume) 236 mg/dL 70-105 Serum or plasma calcium measurement (mass/volume) 8.4 mg/dL 8.5-10.1 Serum or plasma total bilirubin measurement (mass/volu me) 0.2 mg/dL 0.1-1.0 Serum or plasma alkaline phosphatase sindhu surement (enzymatic activity/volume) 96 U/L 40-136 Serum or plasma aspartate aminotransfera se measurement (enzymatic activity/volume) 37 U/L 5-34 Serum or plasma alanine aminotransferase measurement (enzymatic activity/volume) 53 U/L 0-55 Serum or plasma protein measurement (mass/volume) 7.5 g/dL 6.4-8.2 Serum or plasma albumin measurement (mass/volume) 3.8 g/dL 3.2-4.5 CALCIUM CORRECTED 8.6 mg/dL 8.5-10.1 Serum or plasma amylase measurement (enz ymatic activity/volume) - 04/05/19 23:20 Serum or plasma amylase measurement (enzymatic activit y/volume) 44 U/L 25-125 Lipase - 04/05/19 23:20 Lipase 57 U/L 8-78 Complete urinalysis with reflex to cultu re - 04/05/19 23:44 Urine color determination YELLOW NRG Urine clarity determination CLEAR NR G Urine pH measurement by test strip 5.5 5-9 Specific gravity of urine by test strip 1.020 1.016-1.022 Urine protein assay by test strip, semi-quantitative NEGATIVE NEGATIVE Urine glucose detection by automated test strip 3+ NEGATIVE Erythrocytes detection in urine sediment by light micr oscopy 2+ NEGATIVE Urine ketones detection by automated test strip NE GATIVE NEGATIVE Urine nitrite detection by test strip NEGATIVE NEGATIVE Urine total bilirubin detection by test strip NEGA TIVE NEGATIVE Urine urobilinogen measurement by automated test strip (mass/volume) 0.2 mg/dL < = 1.0 Urine leukocyte esterase detection by dipstick NEG ATIVE NEGATIVE Automated urine sediment erythrocyte cou nt by microscopy (number/high power field) [HPF] NRG Automated urine sediment leukocyte count by microscopy (number/high power field) [HPF] NRG Bacteria detection in urine sediment by light microsco py TRACE NRG Crystals detection in urine sediment by light microsco py NONE NRG Casts detection in urine sediment by light microscopy NONE NRG Mucus detection in urine sediment by light microscopy NEGATIVE NRG Complete urinalysis with reflex to culture NO NRG Serum or plasma choriogonadotropin (preg rosie test) detection - 04/06/19 00:54 Serum or plasma choriogonadotropin ( test) de tection NEGATIVE NEGATIVE Complete urinalysis with reflex to cultu re - 04/13/19 21:05 Urine color determination YELLOW NRG Urine clarity determination SL CLOUDY N RG Urine pH measurement by test strip 7.0 5-9 Specific gravity of urine by test strip 1.020 1.016-1.022 Urine protein assay by test strip, semi-quantitative 2+ NEGATIVE Urine glucose detection by automated test strip 3+ NEGATIVE Erythrocytes detection in urine sediment by light micr oscopy 3+ NEGATIVE Urine ketones detection by automated test strip TR RYAN NEGATIVE Urine nitrite detection by test strip POSITIVE NEGATIVE Urine total bilirubin detection by test strip NEGA TIVE NEGATIVE Urine urobilinogen measurement by automated test strip (mass/volume) 0.2 mg/dL < = 1.0 Urine leukocyte esterase detection by dipstick 1+ NEGATIVE Automated urine sediment erythrocyte cou nt by microscopy (number/high power field) [HPF] NRG Automated urine sediment leukocyte count by microscopy (number/high power field) [HPF] NRG Bacteria detection in urine sediment by light microsco py LARGE NRG Crystals detection in urine sediment by light microsco py NONE NRG Casts detection in urine sediment by light microscopy NONE NRG Mucus detection in urine sediment by light microscopy NEGATIVE NRG Complete urinalysis with reflex to culture YES NRG Bacterial urine culture - 04/13/19 21:05 Bacterial urine culture [id number] NRG COLONY COUNT >100,000/ML NRG FTX;REPORTABLE SUSCEPTIBILITY REPORTED 04/15 10:05 NRG FREE TEXT ENTRY 2 PRELIM RAPID ID TEST AT [facility] 04/14 10:53 NRG FREE TEXT ENTRY 3 RML CONFIRMED ID 04/14 15:05 NRG Dirithromycin susceptibility test by dis k diffusion - 04/13/19 21:05 Gentamicin susceptibility test by minimum inhibitory c oncentration <= NRG Trimethoprim/sulfamethoxazole susceptibi lity test by minimum inhibitoryconcentration <= NRG Levofloxacin susceptibility test by minimum inhibitory concentration <= NRG Ampicillin susceptibility test by minimum inhibitory c oncentration <= NRG Cefazolin susceptibility test by minimum inhibitory co ncentration <= NRG Ceftriaxone susceptibility test by minimum inhibitory concentration <= NRG Ciprofloxacin susceptibility test by minimum inhibitor y concentration <= NRG Meropenem susceptibility test by minimum inhibitory co ncentration <= NRG Nitrofurantoin susceptibility test by mi nimum inhibitory concentration <= NRG Amoxicillin and clavulanate potassium susc AMITA <= NRG Complete blood count (CBC) with automate d white blood cell (WBC) differential - 04/13/19 21:10 Blood leukocytes automated count (number/volume) 16.0 10*3/uL 4.3-11.0 Blood erythrocytes automated count (number/volume) 4.31 10*6/uL 4.35-5.85 Venous blood hemoglobin measurement (mass/volume) 11.8 g/dL 11.5-16.0 Blood hematocrit (volume fraction) 36 % 35-52 Automated erythrocyte mean corpuscular volume 84 [ foz_us] 80-99 Automated erythrocyte mean corpuscular h emoglobin (mass per erythrocyte) 27 pg 25-34 Automated erythrocyte mean corpuscular h emoglobin concentration measurement (mass/volume) 33 g/dL 32-36 Automated erythrocyte distribution width ratio 15. 8 % 10.0- 14.5 Automated blood platelet count (count/volume) 462 10*3/uL 130-400 Automated blood platelet mean volume measurement 9.5 [foz_us] 7.4-10.4 Automated blood neutrophils/100 leukocytes 82 % 42-75 Automated blood lymphocytes/100 leukocytes 11 % 12-44 Blood monocytes/100 leukocytes 6 % 0-12 Automated blood eosinophils/100 leukocytes 0 % 0-10 Automated blood basophils/100 leukocytes 0 % 0-10 Blood neutrophils automated count (number/volume) 13.1 10*3 1.8-7.8 Blood lymphocytes automated count (number/volume) 1.8 10*3 1.0-4.0 Blood monocytes automated count (number/volume) 1. 0 10*3 0.0-1.0 Automated eosinophil count 0.1 10*3/uL 0 .0-0.3 Automated blood basophil count (count/volume) 0.0 10*3/uL 0.0-0.1 Comprehensive metabolic panel - 04/13/19 21:10 Serum or plasma sodium measurement (moles/volume) 134 mmol/L 135-145 Serum or plasma potassium measurement (moles/volume) 4.1 mmol/L 3.6-5.0 Serum or plasma chloride measurement (moles/volume) 99 mmol/L 98-107 Carbon dioxide 21 mmol/L 21-32 Serum or plasma anion gap determination (moles/volume) 14 mmol/L 5-14 Serum or plasma urea nitrogen measurement (mass/volume ) 8 mg/dL 7-18 Serum or plasma creatinine measurement (mass/volume) 0.84 mg/dL 0.60-1.30 Serum or plasma urea nitrogen/creatinine mass ratio 10 NRG Serum or plasma creatinine measurement w ith calculation of estimated glomerular filtration rate > NRG Serum or plasma glucose measurement (mass/volume) 245 mg/dL 70-105 Serum or plasma calcium measurement (mass/volume) 9.2 mg/dL 8.5-10.1 Serum or plasma total bilirubin measurement (mass/volu me) 0.4 mg/dL 0.1-1.0 Serum or plasma alkaline phosphatase sindhu surement (enzymatic activity/volume) 115 U/L 40-136 Serum or plasma aspartate aminotransfera se measurement (enzymatic activity/volume) 15 U/L 5-34 Serum or plasma alanine aminotransferase measurement (enzymatic activity/volume) 30 U/L 0-55 Serum or plasma protein measurement (mass/volume) 8.1 g/dL 6.4-8.2 Serum or plasma albumin measurement (mass/volume) 4.2 g/dL 3.2-4.5 CALCIUM CORRECTED 9.0 mg/dL 8.5-10.1 Lipase - 04/13/19 21:10 Lipase 22 U/L 8-78 Manual absolute plasma cell count - 05/28 21:10 Blood monocytes/100 leukocytes 5 % NRG Manual blood segmented neutrophils/100 leukocytes 88 % NRG Manual blood lymphocytes/100 leukocytes 7 % NRG Blood erythrocyte morphology finding identification NORMAL NRG LIPID PANEL - 05/07/19 08:31 CHOLESTEROL, TOTAL 253 mg/dL <200 HDL CHOLESTEROL 63 mg/dL > OR = 50 TRIGLYCERIDES 135 mg/dL <150 LDL-CHOLESTEROL 163 mg/dL (calc) NRG CHOL/HDLC RATIO 4.0 (calc) <5.0 NON HDL CHOLESTEROL 190 mg/dL (calc) <13 0 Encounters ACCT No. Visit Date/Time Discharge Status Pt. Type Provider Facility Loc./Unit Complaint [id number] 04/20/2016 12:09:00 Document Registration [id number] 07/02/2014 09:11:00 07/02/2014 23:59: 59 [facility] Outpatient CHERRY MARTIN APRN [id number] 05/31/2014 09:13:00 05/31/2014 23:59: 59 [facility] Outpatient CHERRY MARTIN APRN [id number] 03/31/2014 09:55:00 03/31/2014 23:59: 59 [facility] Outpatient CHERRY MARTIN APRN [id number] 02/22/2014 16:10:00 02/22/2014 23:59: 59 [facility] Outpatient CHERRY MARTIN APRN [id number] 01/22/2014 08:37:00 01/22/2014 23:59: 59 [facility] Outpatient CHERRY MARTIN APRN [id number] 08/24/2013 09:05:00 08/24/2013 23:59: 59 C[facility] Outpatient CHERRY MARTIN APRN Hillary [id number] 07/24/2013 09:45:00 07/24/2013 23:59: 59 C[facility] Outpatient CHERRY MARTIN APRN [id number] 05/23/2012 08:12:00 05/23/2012 23:59: 59 CLS Outpatient [id number] 01/08/2012 09:40:00 01/08/2012 23:59: 59 CLS Outpatient RIAZ REAL DO [id number] 01/08/2012 09:40:00 01/08/2012 23:59:5 9 CLS Outpatient [id number] 11/21/2012 09:20:00 Document Registration [id number] 09/02/2012 09:01:00 Document Registration [id number] 08/01/2012 09:41:00 Document Registration [id number] 07/04/2012 08:48:00 Document Registration [id number] 06/24/2012 13:23:00 Document Registration [id number] 04/18/2019 18:50:00 04/18/2019 23:59:5 9 CLS Outpatient CHERRY MARTIN APRN Hillary [facility] [id number] 05/07/2019 08:40:00 Document Registration [id number] 08/09/2017 09:00:00 Document Registration [id number] 07/22/2017 09:20:00 Document Registration [id number] 02/25/2017 10:20:00 Document Registration [id number] 02/11/2017 08:40:00 Document Registration [id number] 06/21/2019 16:20:00 16:37:00 DIS Emergency LISS BAGLEY APRN [facility] ER R HAND SWELLING [id number] 04/13/2019 20:46:00 23:00:00 DIS Emergency LISS BAGLEY APRN [facility] ER VOMITING,ABD PAIN [id number] 04/05/2019 23:12:00 01:29:00 DIS Emergency NOEL CHIN DO [facility] ER ABD AND GROIN PAIN [id number] 03/22/2019 20:22:00 020 21:07:00 DIS Emergency ELKE PRICE MD [facility] ER LOW BK PN/PAINFUL URINA TION [id number] 11/22/2018 20:23:00 22:49:00 DIS Emergency LISS BAGLEY APRN [facility] ER ABDOMINAL PAIN [id number] 10/04/2018 20:16:00 019 00:00:00 DIS Outpatient NOEL CHIN DO [facility] ER ABD PAIN, SEVERE HEARTB URN [id number] 07/19/2018 00:24:00 02:34:00 DIS Emergency WILEY AMBRIZ MD [facility] ER LEFT SHOULDER P AIN [id number] 06/17/2018 10:04:00 019 15:40:00 DIS Outpatient VALERIA CONTRERAS DO [facility] SDC GALLSTONES [id number] 06/13/2018 12:48:00 23:59:59 CLS Outpatient VALERIA CONTRERAS DO [facility] RAD ABN MAMMO [id number] 06/12/2018 10:13:00 10:57:00 DIS Outpatient VALERIA CONTRERAS DO [facility] PREOP GALLSTONES [id number] 05/26/2018 20:08:00 22:22:00 DIS Emergency BERNAIDEE MENG [facility] ER R SIDE PAIN [id number] 02/16/2018 16:22:00 17:44:00 DIS Outpatient LISS BAGLEY APRN [facility] ER KNEE SURGERY TUES, KNEE PAINFUL/SWELLING [id number] 01/24/2018 08:18:00 23:59:59 CLS Outpatient HU VICKERS [facility] RAD OSTEOARTHRITIS KNEE RIG HT [id number] 01/18/2018 23:45:00 018 02:05:00 DIS Emergency NOEL CHIN DO [facility] ER RT KNEE SWELLING PAIN [id number] 09/23/2017 10:45:00 018 23:59:59 CLS Outpatient RENEA STAHL APRN [facility] RAD ABN MAMMO OF LE FT BREAST [id number] 09/10/2017 11:11:00 018 23:59:59 CLS Preadmit RENEA STAHL APRN [facility] RAD ABNORMAL MAMMOGRAM OF L EFT BREAST [id number] 09/06/2017 12:52:00 018 23:59:59 CLS Outpatient RENEA STAHL APRN [facility] RAD ABNORMAL MAMMOG NERY OF LEFT BREAST [id number] 08/14/2017 10:00:00 018 23:59:59 CLS Outpatient RENEA STAHL APRN [facility] RAD SCREENING BREAS T EXAMINATION [id number] 01/14/2017 07:38:00 017 10:30:00 DIS Outpatient ADAN COLLIER MD [facility] ENDO IRON DEFICIENCY ANEMIA/DYSPHAGIA/ABNORMAL CT [id number] 01/11/2017 09:30:00 017 09:52:00 DIS Outpatient ADAN COLLIER MD [facility] PREOP COLONOSCOPY/EGD [id number] 12/02/2016 21:57:00 017 02:27:00 DIS Emergency WILEY AMBRIZ MD [facility] ER L SIDE PAIN [id number] 09/18/2016 09:15:00 017 23:59:59 CLS Outpatient CASSANDRA VELASCO APRN [facility] RAD PNEUMONIA [id number] 07/28/2016 18:13:00 017 18:20:00 DIS Inpatient ADAN COLLIER MD [facility] 4TH GASTRIC DISTENSION, BIB ASILAR ATELECTASIS [id number] 07/25/2016 08:18:00 017 15:30:00 DIS Outpatient ADAN COLLIER MD [facility] SEVERE REFLUX, DYSPHAG IA [id number] 07/18/2016 09:13:00 017 09:53:00 DIS Outpatient ADAN COLLIER MD [facility] PREOP SEVERE REFLUX, DYSPHAG IA [id number] 06/07/2016 20:14:00 017 14:04:00 DIS Inpatient GILLES JONES, VALERIE Calabrese [facility] 4TH UPPER ABDOMINAL PAIN,IL EUS,NAUSEA + VOMITING [id number] 05/23/2016 10:37:00 017 23:59:59 CLS Outpatient CASSANDRA VELASCO APRN [facility] RT DYSPNEA,COUGH,A STHMA [id number] 04/22/2016 20:13:00 017 00:09:00 DIS Emergency WILEY AMBRIZ MD [facility] ER N/V [id number] 04/16/2016 21:10:00 017 22:05:00 DIS Emergency LISS BAGLEY APRN [facility] ER BRONCHITIS/RIB PAIN/SIN US INFECTION [id number] 04/04/2016 22:54:00 017 02:39:00 DIS Emergency WILEY AMBRIZ MD [facility] ER ABD PAIN [id number] 03/10/2016 20:30:00 016 21:41:00 DIS Emergency LISS BAGLEY APRN [facility] ER COUGHING, CONGESTION [id number] 03/03/2016 22:07:00 016 23:33:00 DIS Emergency NOEL CHIN DO [facility] ER COUGHING, THROAT PAIN [id number] 02/21/2016 12:19:00 23:59:59 [id number] 02/16/2016 06:15:00 23:59:59 CLS Outpatient ADRIENNE BRITTON DO [facility] PREOP GERD [id number] 12/19/2015 11:49:00 23:59:59 CLS Outpatient CHERRY MARTIN TYE [facility] CARD RT UPPER QUAD PAIN [id number] 12/16/2015 07:43:00 23:59:59 CLS Outpatient CHERRY MARTIN CONTINUOUS IMPROVEMENT LEAD [facility] RAD RUQ PAIN [id number] 12/13/2015 20:40:00 23:30:00 DIS Emergency FATIMAH VICK [facility] ER GALLBLADDER ISSUES/GAS /PAIN [id number] 11/27/2015 20:07:00 22:05:00 DIS Emergency FATIMAH VICK [facility] ER PAINFUL URINATION, BONY K AND SIDE PAIN [id number] 08/22/2015 20:32:00 016 22:14:00 DIS Emergency LISS BAGLEY APRN [facility] ER LT SIDE ABD PAIN/VOMITT ING/LIGHT HEADED [id number] 07/13/2015 21:29:00 016 00:14:00 DIS Emergency YADIRA WHITEHEAD MD [facility] ER ABD PAIN,NAUSEA [id number] 01/12/2015 20:20:00 22:37:00 DIS Emergency LISS BAGLEY APRN [facility] ER [id number] 09/30/2014 21:41:00 01:05:00 DIS Emergency FATIMAH VICK [facility] ER [id number] 08/14/2014 20:54:00 23:33:00 DIS Emergency LISS BAGLEY INTEGRATED LOGISTICS SUPPORT MANAGER [facility] ER [id number] 04/12/2014 20:35:00 02/02/2 015 23:45:00 DIS Emergency FATIMAH VICK [facility] ER [id number] 04/08/2014 21:11:00 01:12:00 DIS Emergency CHERRY OLIVER DO [facility] ER [id number] 10/20/2017 20:00:00 Document Registration [id number] 04/25/2010 22:38:00 Document Registration
--- NOTE | 2019-07-31 21:40 | ED Lower Extremity ---
General Chief Complaint: Lower Extremity Stated Complaint: L LEG KNOT/PAIN WARM TO TOUCH Nursing Triage Note: PT AMBULATE TO ROOM 06 WITH C/O KNOT ON THE REAR OF LEFT CALF. PT REPORTS LEG WAS HURTING TODAY AT WORK AND SHE FELT THE KNOT WHEN SHE GOT HOME. NO OTHER C/O. Nursing Sepsis Screen: No Definite Risk Source: patient Exam Limitations: no limitations History of Present Illness Date Seen by Provider: July 31, 2019 Time Seen by Provider: 21:35 Initial Comments To ER per private vehicle from home with reports of left lower extremity "knot". Onset: just prior to arrival Severity: moderate Pain/Injury Location: left leg Method of Injury: unknown Modifying Factors: Worse With Movement Allergies and Home Medications Allergies Coded Allergies: Penicillins (Verified Allergy, Mild, RASH, 06/12/18) metoclopramide (Verified Allergy, Mild, RED RASH/GI UPSET, 06/12/18) Home Medications Albuterol Sulfate 1 Puff Puff, 2 PUFF IH Q6H PRN for SHORTNESS OF BREATH, (Repor jonny) Cefuroxime Axetil 500 Mg Tablet, 500 MG PO BID Prescribed by: LISS BAGLEY on 04/13/192210 Cephalexin 500 Mg Capsule, 500 MG PO BID Prescribed by: ELKE PRICE on 03/22/192056 Cetirizine HCl 10 Mg Capsule, 10 MG PO DAILY, (Reported) Guaifenesin 1,200 Mg Tab.er.12h, 1,200 MG PO DAILY, (Reported) Hydrocodone Bit/Acetaminophen 1 Tab Tab, 1 TAB PO Q6H PRN for PAIN-MODERATE Prescribed by: VALERIA CONTRERAS on 06/17/18 1312 Hyoscyamine Sulfate 0.125 Mg Tab.subl, 1-2 TAB SL Q4H Prescribed by: NOEL CHIN on 04/06/19 0055 Insulin Glargine,Hum.rec.anlog 100 Unit/1 Ml Insuln.pen, 50 UNITS SC HS, (Reported) Metformin HCl 1,000 Mg Tablet, 1,000 MG PO BID, (Reported) Nitrofurantoin Monohyd/M-Cryst 100 Mg Capsule, 100 MG PO BID Prescribed by: NOEL CHIN on 10/04/18 2343 Ondansetron 4 Mg Tab.rapdis, 4 MG PO Q4H Prescribed by: NOEL CHIN on 04/06/1954 Ondansetron HCl 4 Mg Tab, 4 MG PO Q4H Prescribed by: AIDEE SOUZA on 05/26/182202 Pantoprazole Sodium 40 Mg Tablet.dr, 40 MG PO DAILY Prescribed by: NOEL CHIN on 10/04/182342 Polyethylene Glycol 3350 17 Gm Powd.pack, 17 GM PO DAILY Prescribed by: NOEL CHIN on 04/06/1955 Sucralfate 1 Gm/10 Ml Oral.susp, 1 GM PO QID Prescribed by: NOEL CHIN on 10/04/182342 Patient Home Medication List Home Medication List Reviewed: Yes Review of Systems Constitutional: see HPI EENTM: see HPI Respiratory: no symptoms reported Cardiovascular: no symptoms reported Genitourinary: no symptoms reported Musculoskeletal: see HPI Skin: no symptoms reported Psychiatric/Neurological: No Symptoms Reported Past Ztqusez-Ezfbxs-Nrhraw Hx Patient Social History Alcohol Use: Denies Use Recreational Drug Use: No Smoking Status: Never a Smoker 2nd Hand Smoke Exposure: Yes Recent Foreign Travel: No Contact w/Someone Who Travel: No Recent Infectious Disease Expo: No Recent Hopitalizations: No Physical Abuse: No Sexual Abuse: No Mistreated: No Fear: No Immunizations Up To Date Tetanus Booster (TDap): Unknown PED Vaccines UTD: No Date of Pneumonia Vaccine: Dec 12, 2009 Date of Influenza Vaccine: Jan 09, 2019 Seasonal Allergies Seasonal Allergies: Yes Past Medical History Surgeries: Yes (HIATAL HERNIA REPAIR 2016; HARLEY 06/2018; BILAT KNEE SCOPES; EYE SURGERY ) Abdominal, Eye Surgery, Gallbladder, Orthopedic Respiratory: Yes Asthma Currently Using CPAP: No Currently Using BIPAP: No Cardiac: Yes High Cholesterol Neurological: No Reproductive Disorders: Yes Female Reproductive Disorders: Menstrual Problems Sexually Transmitted Disease: No HIV/AIDS: No Genitourinary: Yes Bladder Infection, UTI-Chronic Gastrointestinal: Yes (ESOPHAGEAL NARROWING; HIATAL HERNIA REPAIR 2016; CHOLECYSTECTOMY 06/2018) Gastroesophageal Reflux, Hiatal Hernia, Ulcer, Gall Bladder Disease Musculoskeletal: Yes Arthritis Endocrine: Yes Diabetes, Insulin dep HEENT: Yes (GLASSES; EYE SURGERY INFANT; DENTAL DECAY) Loss of Vision: Bilateral Hearing Impairment: Denies Cancer: No Psychosocial: No Integumentary: No Blood Disorders: No Adverse Reaction/Blood Tranf: No (N/A) Family Medical History Arthritis 19 FATHER 19 MOTHER G8 SISTER Asthma 19 FATHER 19 MOTHER G8 SISTER Cataracts 19 MOTHER Diabetes mellitus 19 FATHER 19 MOTHER G8 SISTER FH: leukemia 19 FATHER Myocardial infarction 19 MOTHER Parkinson's disease 19 FATHER Thyroid disease 19 MOTHER Asthma, CAD Over 55 Years Old, Diabetes PSH: -EYE SURGERY -BILATERAL KNEE SCOPES -HIATAL HERNIA REPAIR 07/2016 -LAP HARLEY 06/2018 -LAST COLONOSCOPY 01/08/19 Physical Exam Vital Signs Vital Signs - First Documented 07/31/19 21:15 Temp 36.6 Pulse 91 Resp 18 B/P (MAP) 166/96 (119) O2 Delivery Room Air Capillary Refill : Less Than 3 Seconds Height, Weight, BMI Height: 5'3.00" Weight: 178lbs. 0.0oz. 80.914335vf; 32.00 BMI Method:Stated General Appearance: WD/WN, no apparent distress HEENT: PERRL/EOMI, normal ENT inspection Respiratory: no respiratory distress, no accessory muscle use Gastrointestinal: normal bowel sounds, non tender Hips: bilateral hip non-tender, bilateral hip normal inspection, bilateral hip normal range of motion Legs: bilateral leg non-tender, bilateral leg normal inspection, bilateral leg normal range of motion Knees: bilateral knee non-tender, bilateral knee normal inspection, bilateral knee normal range of motion; left knee other (there is a half-dollar sized area that is tender and slightly firm to touch consistent with an engorged varicose vein. No erythema.) Ankles: bilateral ankle non-tender, bilateral ankle normal inspection, bilateral ankle normal range of motion Feet: bilateral foot non-tender, bilateral foot normal inspection, bilateral foot normal range of motion Neurologic/Psychiatric: alert, normal mood/affect, oriented x 3 Skin: normal color, warm/dry Progress/Results/Core Measures Results/Orders Vital Signs/I&O 07/31/19 21:15 Temp 36.6 Pulse 91 Resp 18 B/P (MAP) 166/96 (119) O2 Delivery Room Air Blood Pressure Mean: 119 Departure Impression Primary Impression: Superficial thrombophlebitis Disposition: 01 HOME, SELF-CARE Condition: Stable Departure-Patient Inst. Decision time for Depature: 21:38 Referrals: NO,LOCAL PHYSICIAN (PCP) Primary Care Physician CHERRY MARTIN (Family) Primary Care Physician Patient Instructions: Superficial Phlebitis Add. Discharge Instructions: 1. Ice pack to the area for 30 minutes several times a day 2. Take a full dose aspirin daily 3. Call the scheduling department on Saturday to make an appointment for the ultrasound. Return to ER for any worsening. All discharge instructions reviewed with patient and/or family. Voiced understanding. Images Extremities-Lower 1 - Tenderness LISS BAGLEY APRN July 31, 2019 21:40
== END 2019-07-31 21:47 | disposition home or self-care (01) ==
LOC: EDUNIT# 21:06 → ER 21:08
DX: I80.02 Phlebitis and thrombophlebitis of superficial vessels of left lower extremity (principal); E11.9 Type 2 diabetes mellitus without complications; J45.909 Unspecified asthma, uncomplicated; K21.9 Gastro-esophageal reflux disease without esophagitis; Z82.49 Family history of ischemic heart disease and other diseases of the circulatory system; Z88.0 Allergy status to penicillin; Z88.8 Allergy status to other drugs, medicaments and biological substances; Z79.4 Long term (current) use of insulin; Z77.22 Contact with and (suspected) exposure to environmental tobacco smoke (acute) (chronic)
CPT/HCPCS: 99283

== ENCOUNTER → 2019-08-05 | Outpatient (CLI) | payer OTHER ==
--- NOTE | 2019-08-05 09:35 | Diagnostic Imaging Report ---
PROCEDURE: US left lower extremity venous. TECHNIQUE: Multiple real-time grayscale images were obtained over the left lower extremity in various projections. Additional duplex Doppler and color Doppler images were also obtained. INDICATION: Superficial thrombophlebitis . There is no evidence of left lower extremity DVT. The left lower extremity deep venous system shows normal compressibility with normal response to augmentation and Valsalva. No definite superficial thrombosis is detected. No fluid collection or mass is detected. IMPRESSION: No evidence of left lower extremity DVT. Dictated by: Dictated on workstation # [id number]
== END ==
LOC: RAD 08:24
PROVIDERS: ATTEND Nurse Practitioner Family
DX: I80.292 Phlebitis and thrombophlebitis of other deep vessels of left lower extremity (principal)

== ENCOUNTER 2019-09-04 21:06 | Emergency (ER) | payer OTHER ==
[~2019-09-04] VITALS: Ht 160 cm; Wt 81.0 kg
--- OUTSIDE RECORDS SUMMARY | 2019-09-04 21:16 | XMS REPORT | Clinical Summary ---
Author Author [facility] Address Unknown Phone Unavailable Care Team Providers Care Container Coordinator Name Role Phone Kirt Mi TRAILHEAD CONSTRUCTION WORKER PCP Source Comments Some departments are not documenting in the electronic medical record. If you d o not see the information that you expected, contact Release of Information in [facility] [employer] Information Management department at [phone] for further assistan ce in locating additional records.[facility] Allergies Comments Active Allergy Reactions Severity Noted [...] May eat and drink liquids as normally. Active Problems No known active problems Encounters Care Team Description Date Type Specialty Una Velazquez MD 06/22/2019 Prep for Case Gastroenterology Una Velazquez MD Reflux esophagitis (Primary Dx); Pelvic floor dysfunction; Abnormal defecation; Burping; Belching; Abdominal pain, unspecified abdominal location 06/15/2019 Office Visit Gastroenterology Una Velazquez MD ERRONEOUS ENCOUNTER--DISREGARD (Primary Dx) 06/10/2019 Office Visit Gastroenterology Una Velazquez MD Care Coordination (Telehealth) 06/08/2019 Telephone Gastroenterology from Last 3 Months Family [...] Done Comments HIV SCREENING 1986 DTAP/TDAP VACCINES (1 - 1989 Tdap) HEPATITIS C SCREENING 1989 PHYSICAL (COMPREHENSIVE) 1989 EXAM CERVICAL CANCER SCREENING 1992 BREAST CANCER SCREENING 2011 INFLUENZA VACCINE 12/10/2019 12/31/2018 Results Not on filefrom Last 3 Months Insurance Type Payer Benefit Subscriber ID Effective Phone Address Plan / Dates Group AETNA AETNA xxxxxxxxxx 2017-P CHOICE POS resent II (Work) 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
--- OUTSIDE RECORDS SUMMARY | 2019-09-04 21:16 | XMS REPORT | Encounter Summary ---
Author Author [facility] Organization [facility] Address Unknown Phone Unavailable Care Team Providers Care Suppression Crew Leader Name Role Phone Kirt Mi TEACHER OF THE SIGHT IMPAIRED PCP Reason for Visit * Auth/Cert Referred By Contact Referred To Contact Status Reason Specialty Diagnoses / Procedures Diagnoses Malfunction of anal sphincter Constipation, unspecified constipation type Diarrhea, unspecified type Malfunction of anal sphincter [R19.8] Constipation, unspecified constipation type [K59.00] Diarrhea, unspecified type [R19.7] P rocedures NE ANORECTAL MANOMETRY ANORECTAL MANOMETRY Encounter Details Care Team Description Date Type Department Una Velazquez MD [address] Ortho/Med Pavilion Lvl [address] [place] [address] Malfunction of anal sphincter 03/10/2019 [facility] [address] [place], [place] [id number] Social History Date Tobacco Use Types Packs/Day [...] Una Velazquez MD - 03/10/2019 3:14 PM OIL DISTRIBUTOR alberto Grant order flexible sigmoidoscopy with EMR to r/o hirschsprung disease. thx DISTRIBUTOR * Leonora Ridley RN - 03/10/2019 2:21 PM OIL DISTRIBUTOR [facility] Endoscopy/Motility Center Anorectal Manometry 03/10/2019 [...] / Vaginal: Repair? Episiotomy / Vaginal Tear: DISTRIBUTOR documented in this encounter Plan of Treatment Not on filedocumented as of this encounter Procedures Comments Procedure Name Priority Date/Time Associated Diag nosis ANORECTAL MANOMETRY 03/10/2019 Malfunction of an al 2:38 PM OIL DISTRIBUTOR sphincter Constipation, unspecified constipation type Diarrhea, unspecified type ANORECTAL MANOMETRY-SCAN 03/10/2019 12:00 AM OIL DISTRIBUTOR ANORECTAL MANOMETRY-SCAN 03/10/2019 12:00 AM OIL DISTRIBUTOR documented in this encounter Results * ANORECTAL MANOMETRY-SCAN (03/10/2019 12:00 AM OIL DISTRIBUTOR) Narrative Performed At This result has an attachment that is n ot available. Ordered by an unspecified provider. * ANORECTAL MANOMETRY-SCAN (03/10/2019 12:00 AM OIL DISTRIBUTOR) Narrative Performed At This result has an attachment that is n ot available. Ordered by an unspecified provider. documented in this encounter Visit Diagnoses Not on filedocumented in this encounter
--- OUTSIDE RECORDS SUMMARY | 2019-09-04 21:16 | XMS REPORT | Encounter Summary ---
Author Author [facility] Organization [facility] Address Unknown Phone Unavailable Care Team Providers Care Gse Mechanic Name Role Phone Kirt Mi ROPE MAKER PCP Reason for Visit * Reason Comments Abdominal pain Encounter Details Care Team Description Date Type Department Una Velazquez MD [address] Ortho/Med Pavilion Lvl 2B [place] [address] Abdominal pain 04/06/2019 Telephone [facility] [address] [place] [address] Social History Date Tobacco Use [...] Juanita Johnson RN - 04/09/2019 10:52 AM MANAGER FLORAL Addended by: JUANITA JOHNSON on: 04/09/2019 10:52 AM Modules accepted: Orders GER FLORAL * Telephone Encounter - Juanita Johnson RN - 04/09/2019 10:46 AM MANAGER FLORAL Order placed. Attempted to call pt. Left detailed VM (authorization on file) inf orming pt of the below info, directions on how to drink bowel cleansing, and dir ections on daily bowel regimen of 25 mg senna and 1 cap of miralax at night whic h is available over the counter. Informed pt to call back if any questions or co ncerns. GER FLORAL * Telephone Encounter - Una Velazquez MD - 04/08/2019 9:06 AM MANAGER FLORAL pls bowel cleansing instruction, then daily laxatives, 25 senna and 1 cap of amari alax at night. Thanks GER FLORAL * Telephone Encounter - Juanita Johnson RN - 2019 5:26 PM MANAGER FLORAL Records received. Scanned in chart under media tab w/ Scan date 04/07/19. CT abd/pelvis w/o contrast: Abd Xray: Routing to Dr. Velazquez to review and advise on retained stool. GER FLORAL * Telephone Encounter - Juanita Johnson RN - 04/06/2019 1:25 PM MANAGER FLORAL Pt called and stated she was seen in ER last night at [facility] in [place], [place] for kidney stones and an "obstruction [...] preformed. SYBIL message s ent to GI medical records administrator to request ER records. Attempted to call pt. Left detailed VM (authorization on file) w/ Dr. Velazquez 's statement above. Informed pt to call back if any questions or concerns. GER FLORAL documented in this encounter Plan of Treatment Not on filedocumented as of this encounter Visit Diagnoses Not on filedocumented in this encounter
--- OUTSIDE RECORDS SUMMARY | 2019-09-04 21:16 | XMS REPORT | Encounter Summary ---
Author Author [facility] Organization [facility] Address Unknown Phone Unavailable Care Team Providers Care Clinical Genetics Laboratory Chief Name Role Phone Shmuel Kirt Talha ICT SUPPORT AND TEST ENGINEERS PCP Reason for Visit * Reason Comments Results ARM Encounter Details Care Team Description Date Type Department Una Velazquez MD [address] [facility] Ortho/Med Pavilion Lvl [address] [place] [address] Results (ARM) 03/19/2019 Telephone [facility] [address] [place] [address] Social History Date Tobacco Use [...] Juanita Johnson RN - 03/31/2019 10:48 AM DRY FOLDER CLOTH Order placed. GFS IT message sent to pt along w/ prep instructions. Contacted p t on information below. Also directed pt to look on ReefEdget. Pt verbalized under standing. Pt had no further questions or concerns. FOLDER CLOTH * Telephone Encounter - Juanita Johnson RN - 03/31/2019 10:39 AM DRY FOLDER CLOTH Progress Notes by Una Velazquez MD at 03/10/19 1514 Author: Una Velazquez MD Service: Gastroenterology Author Type: Physician Filed: 03/21/19 1124 Creation Time: 03/21/191122 Note Type: Progress Notes Status: Signed Pressure Supervisor: Una Velazquez MD (Physician) alberto Grant order flexible sigmoidoscopy with EMR to r/o hirschsprung disease. thx FOLDER CLOTH * Telephone Encounter - Una Velazquez MD - 03/19/2019 3:09 PM DRY FOLDER CLOTH Yes, flexible sigmoidoscopy with EMR (r/O hirschsprung disease). FOLDER CLOTH * Telephone Encounter - Juanita Johnson RN - 03/19/2019 1:43 PM DRY FOLDER CLOTH Pt called and request ARM results from 03/10/19: Reviewed results above w/ pt. Pt verbalized understanding. Had no further quest ions or concerns Routing to Dr. Velazquez to advise if ok to place Suction Biopsy EMR. FOLDER CLOTH documented in this encounter Plan of Treatment Not on filedocumented as of this encounter Visit Diagnoses Not on filedocumented in this encounter
--- OUTSIDE RECORDS SUMMARY | 2019-09-04 21:16 | XMS REPORT | Encounter Summary ---
Author Author [facility] Organization [facility] Address Unknown Phone Unavailable Care Team Providers Care Slice Cutting Machine Operator Name Role Phone Kirt Mi ARMAMENT AIRCRAFT MECHANIC PCP Reason for Referral * Consult, Test & Treat (Routine) Referred By Contact Referred To Contact Status Reason Specialty Diagnoses / Procedures Una Velazquez MD [address] Ortho/Med Pavilion Lvl 2B [place] [address] Pretty Ng, PT [address] [place] [address] New Request Specialty Services Rehabilitation Diagnoses Required Pelvic floor dysfunction Abnormal defecation Scheduling Instructions Can be with any Pelvic Floor Biofeedback Therapist. * Radiology Services (Routine) Referred By Contact Referred To Contact Status Reason Specialty Diagnoses / Procedures Una Velazquez MD [address] Orth[facility]Med Pavilion Lvl [address]B [place] [address] [facility] [address] [address] No Auth Needed Radiology Diagnoses Reflux esophagitis Burping Belching Abdominal pain, unspecified abdominal location P rocedures NM GASTRIC EMPTYING TIME Reason for Visit * Reason Comments Esophageal Reflux Constipation * (Routine) Referred By Contact Referred To Contact Status Reason Specialty Diagnoses / Procedures Una Velazquez MD [address] Orth[facility] Pav[facility] Lvl [address] [place] [address] Incomplete Encounter Details Care Team Description Date Type Department Una Velazquez MD [address] Ortho/Med Pavilion Lvl [address] [place] [address] [phone] Reflux esophagitis (Primary Dx); Pelvic floor dysfunction; Abnormal defecation; Burping; Belching; Abdominal pain, unspecified abdominal location 06/15/2019 Office Visit [facility] [address] [place] [address] Social History Date Tobacco Use [...] for you, [facility] will [facility] at [facility]. A gastric emptying scan is a test that looks at how fast the food e mpties from your stomach into your intestines or bowel. Please call radiology [facility] at [phone] once Covid 19 precautions are lifted to schedule. Start Linzess 145 mcg daily, and bisacodyl suppository as needed when having inc omplete evacuation. Script was sent to [id number] - [place], [place] - [address] [facility] . A Flexible Sigmoidoscopy has been ordered for you. See separate PhaseRx message w/ prep instructions. The GI Scheduling department will contact you to arrange t his once Covid-19 Precautions have been lifted. If you have not heard from sched uling or need to reschedule your procedure please call . A referral was placed for Pelvic Biofeedback Therapy. Please call their scheduli ng department at [phone] to set up appointment. They will not call you. If scheduling is too far out, please send us a Apriva message or call [phone] and we can send you a list [...] your appointment to complete paperwork. Phone number: [phone] Directions: Exit [address] at [place], turn to go North. Take the first turn going [address], onto [address] Continue 0.25 miles, and [facility] Medical Pavilion will be on your left. We are transitioning to new billing practices; if you have any questions about y our bill please call Patient Financial Services phone line: [phone] or [phone], Saturday-Saturday, 8:30a.m. - 4:30 p.m. Please send PhaseRx message or call REANNA Grant Dr[address]s nurse at if you have any questions or concerns. General Instructions: To have a medication refilled: Please use the Apriva Refill request or cont act your pharmacy directly to request medication refills. Please allow 72 hours . [facility] Lab is on the 1st floor. It is open from 7 am-6pm Tu -Saturday and 6:30am-7pm on Mondays, and 7 am - Noon on Saturdays [facility] Lab is located on the 2nd floor and is open 8 am-5 pm Saturday-Saturday [facility] lab is located next to the check out desk and is open from 8 A M to 4:45 PM Saturday through Saturday. Radiology is on the 2nd floor of the Medical Office Building and the 2nd Floo r of [facility]. Radiology Scheduling can be reached at To Schedule office visits: Call [phone] select option 1. For procedure scheduling questions at the Main [facility] or [facility] se call ; for a procedure at [facility] please call . To receive appointment reminders on your cell phone: Make sure we have your c ell phone number, and Text [facility] to [phone]. Support for many chronic illnesses is available through [facility]: turnin [facility] or [phone]. For urgent questions on nights, weekends or holidays, call the Crystal Grower at , and ask for the doctor extrusion engineer for Gastroenterology. Call [phone] for an y emergencies. documented in this [...] to treat them and their agreement to [facility]EL[facility] policy and NPP via this telehealth visit during the [facility] Emergency Raven Bell is a 49 y.o. [...] This note was in part completed with zEconomy, a voice to text dictation system. S [...]
--- OUTSIDE RECORDS SUMMARY | 2019-09-04 21:16 | XMS REPORT | Encounter Summary ---
Author Author [facility] Organization [facility] Address Unknown Phone Unavailable Care Team Providers Care Purchasing Manager Name Role Phone Kirt Mi APRN PCP Reason for Visit * Auth/Cert Referred By Contact Referred To Contact Status Reason Specialty Diagnoses / Procedures Diagnoses Malfunction of anal sphincter Constipation, unspecified constipation type Diarrhea, unspecified type Malfunction of anal sphincter [R19.8] Constipation, unspecified constipation type [K59.00] Diarrhea, unspecified type [R19.7] P rocedures GA ANORECTAL MANOMETRY ANORECTAL MANOMETRY Encounter Details Care Team Description Date Type Department Una Velazquez MD [address] Ortho/Med Pavilion Lvl [address] [place] [address] ANORECTAL MANOMETRY 03/10/[address] [facility] [address] [place], [place] [id number] Social History Date Tobacco Use Types Packs/Day [...] Una Velazquez MD - 03/10/2019 3:14 PM CORRESPONDENCE SCHOOL TEACHER alberto Grant order flexible sigmoidoscopy with EMR to r/o hirschsprung disease. thx ESPONDENCE SCHOOL TEACHER * Leonora Ridley RN - 03/10/2019 2:21 PM CORRESPONDENCE SCHOOL TEACHER [facility] Endoscopy/Motility Center Anorectal Manometry 03/10/2019 [...] / Vaginal: Repair? Episiotomy / Vaginal Tear: ESPONDENCE SCHOOL TEACHER documented in this encounter Plan of Treatment Not on filedocumented as of this encounter Procedures Comments Procedure Name Priority Date/Time Associated Diag nosis ANORECTAL MANOMETRY 03/10/2019 Malfunction of an al 2:38 PM CORRESPONDENCE SCHOOL TEACHER sphincter Constipation, unspecified constipation type Diarrhea, unspecified type ANORECTAL MANOMETRY-SCAN 03/10/2019 12:00 AM CORRESPONDENCE SCHOOL TEACHER ANORECTAL MANOMETRY-SCAN 03/10/2019 12:00 AM CORRESPONDENCE SCHOOL TEACHER documented in this encounter Results * ANORECTAL MANOMETRY-SCAN (03/10/2019 12:00 AM CORRESPONDENCE SCHOOL TEACHER) Narrative Performed At This result has an attachment that is n ot available. Ordered by an unspecified provider. * ANORECTAL MANOMETRY-SCAN (03/10/2019 12:00 AM CORRESPONDENCE SCHOOL TEACHER) Narrative Performed At This result has an attachment that is n ot available. Ordered by an unspecified provider. documented in this encounter Visit Diagnoses Diagnosis Malfunction of anal sphincter Other symptoms involving digestive syst em Constipation, unspecified constipation type Diarrhea, unspecified type documented in this encounter
--- OUTSIDE RECORDS SUMMARY | 2019-09-04 21:16 | XMS REPORT | Encounter Summary ---
Author Author [facility] Organization [facility] Address Unknown Phone Unavailable Care Team Providers Care Contract Administration Specialist Name Role Phone Kirt Mi YARDER ENGINEER PCP Encounter Details Care Team Description Date Type Department Una Velazquez MD [address] [facility] Ortho/Med Pavilion Lvl [address] [place] [address] [phone] 06/22/2019 Prep for Case [facility] [address] [place] [phone] Social History Date Tobacco Use Types Packs/Day [...]
--- OUTSIDE RECORDS SUMMARY | 2019-09-04 21:16 | XMS REPORT | Encounter Summary ---
Author Author [facility] Organization [facility] Address Unknown Phone Unavailable Care Team Providers Care Tissue Rewinder Name Role Phone Shmuel Kirt Talha AGRONOMY MANAGER PCP Reason for Visit * Reason Comments Care Coordination Telehealth Encounter Details Care Team Description Date Type Department Una Velazquez MD [address] [facility] Ortho/Med Pavilion Lvl [address] [place] [address] Care Coordination (Telehealth) 06/08/2019 Telephone [facility] [address] [place] [address] Social History Date Tobacco Use [...] 06/09. Informed pt there will be a [email or web address] message with appt link and instruction s. [...]
--- OUTSIDE RECORDS SUMMARY | 2019-09-04 21:16 | XMS REPORT | Encounter Summary ---
Author Author [facility] Organization [facility] Address Unknown Phone Unavailable Care Team Providers Care Ski Base Trimmer Name Role Phone Kirt Mi INTERVENTIONAL TECHNOLOGIST PCP Encounter Details Care Team Description Date Type Department Una Velazquez MD [address] Ortho/Med Pavilion Lvl [address] [place], [place] [id number] Malfunction of anal sphincter (Primary D x); Difficulty defecating; Abnormal defecation; Anal reflex absent 03/31/2019 Prep for Case [facility] [address] [place] [address] Social History Date Tobacco Use [...]
--- OUTSIDE RECORDS SUMMARY | 2019-09-04 21:16 | XMS REPORT | Encounter Summary ---
Author Author [facility] Organization [facility] Address Unknown Phone Unavailable Care Team Providers Care Paramedic Instructor Name Role Phone Kirt Mi APRN PCP Reason for Visit * Reason Comments Error * (Routine) Referred By Contact Referred To Contact Status Reason Specialty Diagnoses / Procedures Una Velazquez MD [address] Ortho/Med Pavilion Lvl [address] [place] [address] Incomplete Encounter Details Care Team Description Date Type Department Una Velazquez MD [address] Ortho/Med Pavilion [address]vl [address] [place], [place] [id number] ERRONEOUS ENCOUNTER--DISREGARD (Primary Dx) 06/10/2019 Office Visit [facility] [address] [place] [address] Social History Date Tobacco Use [...]
--- OUTSIDE RECORDS SUMMARY | 2019-09-04 21:16 | XMS REPORT | Encounter Summary ---
Author Author [facility] Organization [facility] Address Unknown Phone Unavailable Care Team Providers Care Realtime Court Reporter Name Role Phone Kirt Mi SALES ROUTE DRIVER PCP Reason for Visit * Reason Comments Appointment Procedure cancel request Encounter Details Care Team Description Date Type Department Una Velazquez MD [address] [facility] Ortho/Med Pav[place] [address] [place] [address] Appointment (Procedure cancel request) 05/25/2019 Telephone [facility] [address] [place] [address] Social History Date Tobacco Use [...] reschedule procedure as she works in a [employer] home and has concerns about exposure to [...]
--- OUTSIDE RECORDS SUMMARY | 2019-09-04 21:21 | XMS REPORT | Continuity of Care Document ---
Demographics Preferred Language Unknown Marital Status Unknown Hinduism Affiliation Unknown Race Unknown Ethnic Group Unknown Author Organization Unknown Address Unknown Phone Unavailable Allergies Active Description Code Type Severity Reaction Onset Reported/Identified Relationship to Patient Clinical Status Yes Penicillins Drug Allergy 05/24/2009 Yes Penicillins Drug Allergy N/A N/A 05/24/2009 Medications There is no data. Problems Date [...] 272.4 HYPE RLIPIDEMIA HYPERLIPOPROTEINEMIAS (Old Classification) 05/24/2009 CHERRY MARTIN APRN 250.02 DIABETES MELLITUS POORLY CONTROLLED 05/24/2009 CHERRY MARTIN APRN 27 2.4 HYPERLIPIDEMIA HYPERLIPOPROTEINEMIAS (Old Classification) 05/24/2009 CHERRY MARTIN APRN 250.02 DIABETES MELLITUS POORLY CONTROLLED 05/24/2009 CHERRY MARTIN APRN 27 2.4 HYPERLIPIDEMIA HYPERLIPOPROTEINEMIAS (Old Classification) 05/24/2009 MARIO SHRESTHAN, CHERRY T 250.02 DIABETES MELLITUS POORLY CONTROLLED 05/24/2009 MARIO POLICE RADIO DISPATCHER, CHERRY T 27 2.4 HYPERLIPIDEMIA HYPERLIPOPROTEINEMIAS (Old Classification) 05/24/2009 MARIO POLICE RADIO DISPATCHER, CHERRY T 250.02 DIABETES MELLITUS POORLY CONTROLLED 05/24/2009 MARIO POLICE RADIO DISPATCHER, CHERRY T 27 2.4 HYPERLIPIDEMIA HYPERLIPOPROTEINEMIAS (Old Classification) 05/24/2009 MARIO POLICE RADIO DISPATCHER, CHERRY T 250.02 DIABETES MELLITUS POORLY CONTROLLED 05/24/2009 MARIO POLICE RADIO DISPATCHER, CHERRY T 27 2.4 HYPERLIPIDEMIA HYPERLIPOPROTEINEMIAS (Old Classification) 05/24/2009 MARIO POLICE RADIO DISPATCHER, CHERRY T 250.02 DIABETES MELLITUS POORLY CONTROLLED 05/24/2009 MARIO POLICE RADIO DISPATCHER, CHERRY T 27 2.4 HYPERLIPIDEMIA HYPERLIPOPROTEINEMIAS (Old Classification) 05/24/2009 MARIO POLICE RADIO DISPATCHER, CHERRY T 250.02 DIABETES MELLITUS POORLY CONTROLLED 05/24/2009 MARIO POLICE RADIO DISPATCHER, CHERRY T 27 2.4 HYPERLIPIDEMIA HYPERLIPOPROTEINEMIAS (Old Classification) 06/14/2009 V72.31 Advisory Software Engineer Exam, Routine 06/14/2009 RIAZ REAL DO V72.31 Advisory Software Engineer Exam, Routine 06/14/2009 V72.31 Advisory Software Engineer Exam, Routine 06/14/2009 V72.31 Advisory Software Engineer Exam, Routine 06/14/2009 V72.31 Advisory Software Engineer Exam, Routine 06/14/2009 V72.31 Advisory Software Engineer Exam, Routine 06/14/2009 V72.31 Advisory Software Engineer Exam, Routine 06/14/2009 V72.31 Advisory Software Engineer Exam, Routine 06/14/2009 CHERRY MARTIN APRN V72.31 Advisory Software Engineer Exam, Routine 06/14/2009 CHERRY MARTIN APRN V72.31 Advisory Software Engineer Exam, Routine 06/14/2009 CHERRY MARTIN APRN T V72.31 Advisory Software Engineer Exam, Routine 06/14/2009 CHERRY MARTIN APRN V72.31 Advisory Software Engineer Exam, Routine 06/14/2009 CHERRY MARTIN APRN V72.31 Advisory Software Engineer Exam, Routine 06/14/2009 CHERRY MARTIN APRN V72.31 Advisory Software Engineer Exam, Routine 06/14/2009 CHERRY MARTIN APRN V72.31 Advisory Software Engineer Exam, Routine 07/19/2009 V58.69 christiano ing high-risk [...] MELLITUS 08/22/2009 466.0 Acut e Bronchitis 08/22/2009 REAL DORIAZ K 250.00 DIABETES MELLITUS 08/22/2009 REAL DOKANDISA K 466.0 Acute Bronchitis 08/22/2009 250.00 RAFIA BETES [...] MELLITUS 08/22/2009 466.0 Acut e Bronchitis 08/22/2009 CHERRY MARTIN APRN 250.00 DIABETES MELLITUS 08/22/2009 CHERRY MARTIN APRN 46 6.0 Acute Bronchitis 08/22/2009 CHERRY MARTIN APRN 250.00 DIABETES MELLITUS 08/22/2009 CHERRY MARTIN APRN 46 6.0 Acute Bronchitis 08/22/2009 MARIO POLICE RADIO DISPATCHER, CHERRY T 250.00 DIABETES MELLITUS 08/22/2009 MARIO POLICE RADIO DISPATCHER, CHERRY T 46 6.0 Acute Bronchitis 08/22/2009 MARIO POLICE RADIO DISPATCHER, CHERRY T 250.00 DIABETES MELLITUS 08/22/2009 MARIO POLICE RADIO DISPATCHER, CHERRY T 46 6.0 Acute Bronchitis 08/22/2009 MARIO POLICE RADIO DISPATCHER, CHERRY T 250.00 DIABETES MELLITUS 08/22/2009 MARIO POLICE RADIO DISPATCHER, CHERRY T 46 6.0 Acute Bronchitis 08/22/2009 MARIO POLICE RADIO DISPATCHER, CHERRY T 250.00 DIABETES MELLITUS 08/22/2009 MARIO POLICE RADIO DISPATCHER, CHERRY T 46 6.0 Acute Bronchitis 08/22/2009 MARIO POLICE RADIO DISPATCHER, CHERRY T 250.00 DIABETES MELLITUS 08/22/2009 MARIO POLICE RADIO DISPATCHER, CHERRY T 46 6.0 Acute Bronchitis 11/28/2009 [...] Vac cines Prophylactic Need Against Influenza 11/28/2009 CHERRY MARTIN APRN V03.82 Need For Vaccination Pneumococcal 11/28/2009 CHERRY MARTIN APRN V04.81 Vaccines Prophylactic Need Against Influenza 11/28/2009 CHERRY MARTIN APRN V03.82 Need For Vaccination Pneumococcal 11/28/2009 CHERRY MARTIN APRN V04.81 Vaccines Prophylactic Need Against Influenza 11/28/2009 MARIO POLICE RADIO DISPATCHER, CHERRY T V03.82 Need For Vaccination Pneumococcal 11/28/2009 MARIO CALDERÓN, CHERRY T V04.81 Vaccines Prophylactic Need Against [...] 782.0 Dist urbance Of Skin Sensation 02/20/2010 REAL DO RIAZ K 240.9 GOITER UNSPECIFIED 02/20/2010 REAL [...] 782.0 Dist urbance Of Skin Sensation 02/20/2010 CHERRY MARTIN APRN T 24 0.9 GOITER UNSPECIFIED 02/20/2010 CHERRY MARTIN APRN T 78 2.0 Disturbance Of Skin Sensation 02/20/2010 CHERRY MARTIN APRN T 24 0.9 GOITER UNSPECIFIED 02/20/2010 CHERRY MARTIN APRN 78 2.0 Disturbance Of Skin Sensation 02/20/2010 MARIO POLICE RADIO DISPATCHER, CHERRY T 24 0.9 GOITER UNSPECIFIED 02/20/2010 MARIO POLICE RADIO DISPATCHER, CHERRY T 78 2.0 Disturbance Of Skin Sensation 02/20/2010 MARIO POLICE RADIO DISPATCHER, CHERRY T 24 0.9 GOITER UNSPECIFIED 02/20/2010 MARIO POLICE RADIO DISPATCHER, CHERRY T 78 2.0 Disturbance Of Skin Sensation 02/20/2010 MARIO POLICE RADIO DISPATCHER, CHERRY T 24 0.9 GOITER UNSPECIFIED 02/20/2010 MARIO SHRESTHAN, CHERRY T 78 2.0 Disturbance Of Skin Sensation 02/20/2010 MARIO SHRESTHAN, CHERRY T 24 0.9 GOITER UNSPECIFIED 02/20/2010 MARIO POLICE RADIO DISPATCHER, CHERRY T 78 2.0 Disturbance Of Skin Sensation 02/20/2010 MARIO POLICE RADIO DISPATCHER, CHERRY T 24 0.9 GOITER UNSPECIFIED 02/20/2010 MARIO SHRESTHAN, CHERRY T 78 2.0 Disturbance Of Skin Sensation 03/31/2010 465.9 Uppe r Respiratory Infection 03/31/2010 786.2 Cough 03/31/2010 REAL DOKANDISA K 465.9 Upper Respiratory Infection 03/31/2010 REAL DO, RIAZ K 786.2 Cough 03/31/2010 465.9 Uppe r Respiratory Infection 03/31/2010 786.2 Cough 03/31/2010 465.9 Uppe r Respiratory Infection 03/31/2010 786.2 Cough 03/31/2010 465.9 Uppe r Respiratory Infection 03/31/2010 786.2 Cough 03/31/2010 465.9 Uppe r Respiratory Infection 03/31/2010 786.2 Cough 03/31/2010 465.9 Uppe r Respiratory Infection 03/31/2010 786.2 Cough 03/31/2010 465.9 Uppe r Respiratory Infection 03/31/2010 786.2 Cough 03/31/2010 MARIO SHRESTHAN, CHERRY T 46 5.9 Upper Respiratory Infection 03/31/2010 MARIO POLICE RADIO DISPATCHER, CHERRY T 78 6.2 Cough 03/31/2010 MARIO SHRESTHAN CHERRY T 46 5.9 Upper Respiratory Infection 03/31/2010 MARIO CALDERÓN CHERRY T 78 6.2 Cough 03/31/2010 MARIO CALDERÓN CHERRY T 46 5.9 Upper Respiratory Infection 03/31/2010 MARIO CALDERÓN CHERRY T 78 6.2 Cough 03/31/2010 MARIO CALDERÓN CHERRY T 46 5.9 Upper Respiratory Infection 03/31/2010 MARIO CALDERÓN CHERRY T 78 6.2 Cough 03/31/2010 MARIO SHRESTHAN, CHERRY T 46 5.9 Upper Respiratory Infection 03/31/2010 MARIO SHRESTHAN, CHERRY T 78 6.2 Cough 03/31/2010 MARIO SHRESTHAN, CHERRY T 46 5.9 Upper Respiratory Infection 03/31/2010 MARIO SHRESTHAN, CHERRY T 78 6.2 Cough 03/31/2010 MARIO SHRESTHAN, CHERRY T 46 5.9 Upper Respiratory Infection 03/31/2010 MARIO SHRESTHAN, CHERRY T 78 6.2 Cough 04/17/2010 466.0 Bron chitis, Acute 04/17/2010 RIAZ REAL DO 466.0 Bronchitis, Acute 04/17/2010 466.0 Bron chitis, Acute 04/17/2010 466.0 Bron chitis, Acute 04/17/2010 466.0 Bron chitis, Acute 04/17/2010 466.0 Bron chitis, Acute 04/17/2010 466.0 Bron chitis, Acute 04/17/2010 466.0 Bron chitis, Acute 04/17/2010 CHERRY MARTIN APRN T 46 6.0 Bronchitis, Acute 04/17/2010 MARIO CALDERÓN CHERRY T 46 6.0 Bronchitis, Acute 04/17/2010 MARIO SHRESTHAN, CHERRY T 46 6.0 Bronchitis, Acute 04/17/2010 CHERRY MARTIN APRN T 46 6.0 Bronchitis, Acute 04/17/2010 CHERRY MARTIN APRN T 46 6.0 Bronchitis, Acute 04/17/2010 CHERRY MARTIN APRN T 46 6.0 Bronchitis, Acute 04/17/2010 MARIO CALDERÓN CHERRY T 46 6.0 Bronchitis, Acute 09/14/2010 719.45 cande nt pain, localized in [...] pain, localized in the hip 09/14/2010 MARIO POLICE RADIO DISPATCHER, CHERRY T 719.45 joint pain, localized in the hip 09/14/2010 CHERRY MARTIN APRN T 719.45 joint pain, localized in the hip 09/14/2010 CHERRY MARTIN APRN T 719.45 joint pain, localized in the hip 09/14/2010 CHERRY MARTIN APRN T 719.45 joint pain, localized in the hip 09/14/2010 CHERRY MARTIN APRN T 719.45 JOINT PAIN, LOCALIZED IN THE HIP 09/14/2010 CHERRY MARTIN APRN 719.45 JOINT PAIN, LOCALIZED IN THE HIP 09/14/2010 CHERRY MARTIN APRN 719.45 JOINT PAIN, LOCALIZED IN THE HIP 01/08/2012 250.02 RAFIA BETES II UNCONTROLLED (UNCOMPLICATED) 01/08/2012 V04.81 FLU DX (3 YRS AND ABOVE, IM) 01/08/2012 RIAZ REAL DO 250.02 DIABETES II UNCONTROLLED (UNCOMPLICATED) 01/08/2012 RIAZ ERAL DO V04.81 FLU DX (3 YRS AND [...] SINU SITIS ACUTE 08/01/2012 CHERRY MARTIN APRN 46 1.9 SINUSITIS ACUTE 08/01/2012 CHERRY MARTIN APRN 46 1.9 SINUSITIS ACUTE 08/01/2012 CHERRY MARTIN APRN 46 1.9 SINUSITIS ACUTE 08/01/2012 CHERRY MARTIN APRN 46 1.9 SINUSITIS ACUTE 08/01/2012 CHERRY MARTIN APRN 46 1.9 SINUSITIS ACUTE 08/01/2012 CHERRY MARTIN APRN 46 1.9 SINUSITIS ACUTE 08/01/2012 CHERRY MARTIN APRN 46 1.9 SINUSITIS ACUTE 04/14/2014 CHERRY MARTIN APRN 72 3.1 PAIN NECK 04/14/2014 CHERRY MARTIN APRN 72 3.1 PAIN NECK Procedures Code Description [place] [address] A1C (IN-HOUSE) 07/04/2012 ENDOC BRANDIE PETERS 07/04/2012 Orthopedi Kal Gibson 07/07/2012 73079 XRAY KNEE LEFT, 1 OR 2 VIEWS 09/02/2012 04314 ROUT INE VENIPUNCTURE 11/21/2012 44178 TSH 11/21/2012 73994 A1C (IN-HOUSE) 11/21/2012 99431 MICR O ALBUMIN-IN HOUSE 11/21/2012 23563 MICR OALBUMIN 11/21/2012 85485 CBC 11/21/2012 04219 CMP 11/21/2012 72249 LIPI D PANEL 11/21/2012 6043388 GF R CALC (RESULT ONLY) 11/21/2012 64941 A1C (IN-HOUSE) 07/24/2013 42287 ROUT INE VENIPUNCTURE 01/22/2014 63125 CMP 01/22/2014 13627 LIPI D PANEL 01/22/2014 80610 TSH 01/22/2014 45172 CBC 01/22/2014 73712 A1C (IN-HOUSE) 01/22/2014 12703 THER APUTIC INJ SQ/IM 05/31/2014 J1885 CLARIBEL DOL INJ 05/31/2014 45988 MICR O ALBUMIN-IN HOUSE 05/31/2014 71330 MICR OALBUMIN 05/31/2014 21602 XRAY CERVICAL SPINE, 2 OR 3 VIEWS 07/02/2014 Results Test Result Range Microalb/Creat Ratio, Randm Ur - 7 10:40 Creatinine, Urine 110.4 mg/dL Not Estab. Microalbumin, Urine 42.4 ug/mL Not Estab . Microalb/Creat Ratio 38.4 mg/g creat 0.0 -30.0 TSH - 02/11/17 09:03 TSH 1.74 mIU/L [...] NRG PREV. BX: NO NRG SOURCE: Cervix NR STATEMENT OF ADEQUACY: NR INTERPRETATION/RESULT: NR COMMODITIES BROKER: NRG HPV mRNA E6/E7, SUREPATH VIAL Not Detected NOT DETECTED COMMENT NRG CULTURE, GENITAL - 08/09/17 11:13 CULTURE, GENITAL SEE NOTE NR LIPID PANEL - 05/07/19 08:31 CHOLESTEROL, TOTAL 253 mg/dL <200 HDL CHOLESTEROL 63 mg/dL > OR = 50 TRIGLYCERIDES 135 mg/dL <150 LDL-CHOLESTEROL 163 mg/dL (calc) NRG CHOL/HDLC RATIO 4.0 (calc) <5.0 NON HDL CHOLESTEROL 190 mg/dL (calc) <13 0 Encounters ACCT No. Visit Date/Time Discharge Status Pt. Type Provider Facility Loc./Unit Complaint [id number] 04/20/2016 12:09:00 Document Registration [id number] 07/02/2014 09:11:00 07/02/2014 23:59: 59 CLS Outpatient CHERRY MARTIN APRN [id number] 05/31/2014 09:13:00 05/31/2014 23:59: 59 CLS Outpatient CHERRY MARTIN APRN [id number] 03/31/2014 09:55:00 03/31/2014 23:59: 59 CLS Outpatient CHERRY MARTIN APRN [id number] 02/22/2014 16:10:00 02/22/2014 23:59: 59 CLS Outpatient CHERRY MARTIN APRN [id number] 01/22/2014 08:37:00 01/22/2014 23:59: 59 CLS Outpatient CHERRY MARTIN APRN [id number] 08/24/2013 09:05:00 08/24/2013 23:59: 59 CLS Outpatient CHERRY MARTIN APRN [id number] 07/24/2013 09:45:00 07/24/2013 23:59: 59 CLS Outpatient CHERRY MARTIN APRN [id number] 05/23/2012 08:12:00 05/23/2012 23:59: 59 CLS Outpatient [id number] 01/08/2012 09:40:00 01/08/2012 23:59: 59 CLS Outpatient RIAZ REAL DO Kelsi 2905 01/08/2012 09:40:00 01/08/2012 23:59:5 9 CLS Outpatient [id number] 11/21/2012 09:20:00 Document Registration [id number] 09/02/2012 09:01:00 Document Registration [id number] 08/01/2012 09:41:00 Document Registration [id number] 07/04/2012 08:48:00 Document Registration [id number] 06/24/2012 13:23:00 Document Registration [id number] 04/18/2019 18:50:00 04/18/2019 23:59:5 9 CLS Outpatient CHERRY MARTIN APRN [facility] [id number] 05/07/2019 08:40:00 Document Registration [id number] 08/09/2017 09:00:00 Document Registration [id number] 07/22/2017 09:20:00 Document Registration [id number] 02/25/2017 10:20:00 Document Registration [id number] 02/11/2017 08:40:00 Document Registration
[2019-09-04] MEDS ORDERED: NS IV 500 ML 500 ML IV ONE (21:29)
--- NOTE | 2019-09-04 21:36 | ED Headache ---
General Chief Complaint: Head/Cervical Problems Stated Complaint: HEAD PAIN Source: patient Exam Limitations: no limitations History of Present Illness Date Seen by Provider: Sep 04, 2019 Time Seen by Provider: 21:18 Initial Comments Patient presents to ER by private conveyance with chief complaint of headache consistently for the past one week. She does not have a history of migraines or headaches. She says it is both in her occiput and her forehead over her right eye. Certain having some blurry vision today. She's had Tylenol 6 times today without help. She does not use any NSAIDs. She's not having any blindness weakness loss of control of bowel or bladder, inability to walk. She has a history of allergies and takes allergy medicines. She's having some nasal congestion and pain in her right face. No discharge fevers chills cough short ness of breath dysuria chest pain or abdominal pain. Allergies and Home Medications Allergies Coded Allergies: Penicillins (Verified Allergy, Mild, RASH, 06/12/18) metoclopramide (Verified Allergy, Mild, RED RASH/GI UPSET, 06/12/18) Home Medications Albuterol Sulfate 1 Puff Puff, 2 PUFF IH Q6H PRN for SHORTNESS OF BREATH, (Reported) Cefuroxime Axetil 500 Mg Tablet, 500 MG PO BID Prescribed by: LISS BAGLEY on 04/13/192210 Cephalexin 500 Mg Capsule, 500 MG PO BID Prescribed by: ELKE PRICE on 03/22/192056 Cetirizine HCl 10 Mg Capsule, 10 MG PO DAILY, (Reported) Guaifenesin 1,200 Mg Tab.er.12h, 1,200 MG PO DAILY, (Reported) Hydrocodone Bit/Acetaminophen 1 Tab Tab, 1 TAB PO Q6H PRN for PAIN-MODERATE Prescribed by: VALERIA CONTRERAS on 06/17/18 1312 Hyoscyamine Sulfate 0.125 Mg Tab.subl, 1-2 TAB SL Q4H Prescribed by: NOEL CHIN on 04/06/19 0055 Insulin Glargine,Hum.rec.anlog 100 Unit/1 Ml Insuln.pen, 50 UNITS SC HS, (Reported) Metformin HCl 1,000 Mg Tablet, 1,000 MG PO BID, (Reported) Nitrofurantoin Monohyd/M-Cryst 100 Mg Capsule, 100 MG PO BID Prescribed by: NOEL CHIN on 10/04/182342 Ondansetron 4 Mg Tab.rapdis, 4 MG PO Q4H Prescribed by: NOEL CHIN on 04/06/1954 Ondansetron HCl 4 Mg Tab, 4 MG PO Q4H Prescribed by: AIDEE SOUZA on 05/26/182202 Pantoprazole Sodium 40 Mg Tablet.dr, 40 MG PO DAILY Prescribed by: NOEL CHIN on 10/04/182342 Polyethylene Glycol 3350 17 Gm Powd.pack, 17 GM PO DAILY Prescribed by: NOEL CHIN on 04/06/1955 Sucralfate 1 Gm/10 Ml Oral.susp, 1 GM PO QID Prescribed by: NOEL CHIN on 10/04/182342 Patient Home Medication List Home Medication List Reviewed: Yes Review of Systems Review of Systems Constitutional: No chills, No diaphoresis Eyes: See HPI; Denies Blindness; Blurred Vision; Denies Drainage Ears, Nose, Mouth, Throat: denies ear pain, denies ear discharge Respiratory: No cough, No short of breath Cardiovascular: No chest pain, No edema Gastrointestinal: No abdominal pain, No nausea, No vomiting Genitourinary: No discharge, No dysuria Musculoskeletal: No back pain, No joint pain All Other Systems Reviewed Negative Unless Noted: Yes Past M[place]nu[place]iz-[place] Hx Patient Social History Alcohol Use: Denies Use Recreational Drug Use: No Smoking Status: Never a Smoker 2nd Hand Smoke Exposure: Yes Recent Foreign Travel: No Contact w/Someone Who Travel: No Recent Hopitalizations: No Immunizations Up To Date Tetanus Booster (TDap): Unknown PED Vaccines UTD: No Date of Pneumonia Vaccine: Dec 12, 2009 Date of Influenza Vaccine: Jan 09, 2019 Seasonal Allergies Seasonal Allergies: Yes Past Medical History Surgeries: Yes (HIATAL HERNIA REPAIR 2016; HARLEY 06/2018; BILAT KNEE SCOPES; EYE SURGERY ) Abdominal, Eye Surgery, Gallbladder, Orthopedic Respiratory: Yes Asthma Currently Using CPAP: No Currently Using BIPAP: No Cardiac: Yes High Cholesterol Neurological: No Reproductive Disorders: Yes Female Reproductive Disorders: Menstrual Problems Sexually Transmitted Disease: No HIV/AIDS: No Genitourinary: Yes Bladder Infection, UTI-Chronic Gastrointestinal: Yes (ESOPHAGEAL NARROWING; HIATAL HERNIA REPAIR 2016; CHOLECYSTECTOMY 06/2018) Gastroesophageal Reflux, Hiatal Hernia, Ulcer, Gall Bladder Disease Musculoskeletal: Yes Arthritis Endocrine: Yes Diabetes, Insulin dep HEENT: Yes (GLASSES; EYE SURGERY ; DENTAL DECAY) Loss of Vision: Bilateral Hearing Impairment: Denies Cancer: No Psychosocial: No Integumentary: No Blood Disorders: No Adverse Reaction/Blood Tranf: No (N/A) Family Medical History Arthritis 19 FATHER 19 MOTHER G8 SISTER Asthma 19 FATHER 19 MOTHER G8 SISTER Cataracts 19 MOTHER Diabetes mellitus 19 FATHER 19 MOTHER G8 SISTER FH: leukemia 19 FATHER Myocardial infarction 19 MOTHER Parkinson's disease 19 FATHER Thyroid disease 19 MOTHER Asthma, CAD Over 55 Years Old, Diabetes PSH: -EYE SURGERY INFANT -BILATERAL KNEE SCOPES -HIATAL HERNIA REPAIR 07/2016 -LAP HARLEY 06/2018 -LAST COLONOSCOPY 01/08/19 Physical Exam Vital Signs Vital Signs - First Documented 09/04/19 21:24 Temp 36.7 Pulse 80 Resp 17 B/P (MAP) 152/94 (113) Pulse Ox 98 O2 Delivery Room Air Capillary Refill : Height, Weight, BMI Height: 5'3.00" Weight: 178lbs. 0.0oz. 80.777171cu; 32.00 BMI Method:Stated General Appearance: WD/WN, no apparent distress HEENT: PERRL/EOMI, TMs normal, other (teeth are all blackened, stumps; tenderness to palpation over right frontal and maxillary sinus without appreciable discharge but some modest nasal congestion.) Neck: non-tender, full range of motion, normal inspection Cardiovascular: normal peripheral pulses, regular rate, rhythm, no edema Respiratory: no respiratory distress, no accessory muscle use Psychiatric: alert, oriented x 3 Crainal Nerves: normal hearing, normal speech, PERRL Coordination/Gait: normal finger to nose, normal gait Motor/Sensory: no motor deficit, no sensory deficit Skin: normal color, warm/dry Progress/Results/Core Measures Results/Orders Lab Results Laboratory Tests Test 09/04/19 21:46 Range/Units White Blood Count 8.2 4.3-11.0 10^3/uL Red Blood Count 4.22 L 4.35-5.85 10^6/uL Hemoglobin 12.0 11.5-16.0 G/DL Hematocrit 36 35-52 % Mean Corpuscular Volume 85 80-99 FL Mean Corpuscular Hemoglobin 28 25-34 PG Mean Corpuscular Hemoglobin Concent 34 32-36 G/DL Red Cell Distribution Width 15.6 H 10.0-14.5 % Platelet Count 433 H 130-400 10^3/uL Mean Platelet Volume 10.5 H 7.4-10.4 FL Neutrophils (%) (Auto) 57 42-75 % Lymphocytes (%) (Auto) 33 12-44 % Monocytes (%) (Auto) 8 0-12 % Eosinophils (%) (Auto) 1 0-10 % Basophils (%) (Auto) 0 0-10 % Neutrophils # (Auto) 4.7 1.8-7.8 X 10^3 Lymphocytes # (Auto) 2.7 1.0-4.0 X 10^3 Monocytes # (Auto) 0.7 0.0-1.0 X 10^3 Eosinophils # (Auto) 0.1 0.0-0.3 10^3/uL Basophils # (Auto) 0.0 0.0-0.1 10^3/uL Erythrocyte Sedimentation Rate 17 0-20 MM/HR Sodium Level 136 135-145 MMOL/L Potassium Level 4.1 3.6-5.0 MMOL/L Chloride Level 104 98-107 MMOL/L Carbon Dioxide Level 19 L 21-32 MMOL/L Anion Gap 13 5-14 MMOL/L Blood Urea Nitrogen 8 7-18 MG/DL Creatinine 0.85 0.60-1.30 MG/DL Estimat Glomerular Filtration Rate > 60 BUN/Creatinine Ratio 9 Glucose Level 272 H 70-105 MG/DL Calcium Level 9.4 8.5-10.1 MG/DL Corrected Calcium 9.5 8.5-10.1 MG/DL Total Bilirubin 0.2 0.1-1.0 MG/DL Aspartate Amino Transf (AST/SGOT) 15 5-34 U/L Alanine Aminotransferase (ALT/SGPT) 12 0-55 U/L Alkaline Phosphatase 89 40-136 U/L C-Reactive Protein High Sensitivity 0.21 0.00-0.50 MG/DL Total Protein 7.4 6.4-8.2 GM/DL Albumin 3.9 3.2-4.5 GM/DL My Orders Orders - ELKE PRICE Ed Iv/Invasive Line Start (09/04/19 21:29) Ns Iv 500 Ml (Sodium Chloride 0.9%) (6/26/20 21:29) Ct Head Wo (09/04/19 21:29) Cbc With Automated Diff (09/04/19 21:29) Comprehensive Metabolic Panel (09/04/19 21:29) Hs C Reactive Protein (09/04/19 21:29) Erythrocyte Sedimentation Rate (09/04/19 21:29) Ketorolac Injection (Toradol Injection) (09/04/19 22:45) Medications Given in ED Current Medications Medications Dose Ordered Sig/Hunter Route Start Time Stop Time Status Last Admin Dose Admin Sodium Chloride 500 ml @ 0 mls/hr Q0M ONCE IV 09/04/19 21:29 09/04/19 21:31 DC 09/04/19 21:45 0 MLS/HR Vital Signs/I&O 09/04/19 21:24 Temp 36.7 Pulse 80 Resp 17 B/P (MAP) 152/94 (113) Pulse Ox 98 O2 Delivery Room Air Progress Progress Note #1: Time: 21:33 Progress Note No history of migraines and now having some right-sided headache is persistent for a week and she says is worse than any usual headaches and does not respond to Tylenol. Plan to get a CT of her head. Suspect she has sinusitis related to her congestion and tenderness to palpation over the right maxillary and frontal sinus. Would rule out anything significant with a CT, CRP, ESR and labs. Plan to get visual acuity screening. Progress Note #2: Time: 22:48 Progress Note PT is okay. Waiting on radiology over read before we discharge her. Suspect she has sinusitis with a sinus headache. Plan to put her on cefdinir. She says she gets a rash with penicillin but has tolerated cephalosporins in the past. Diagnostic Imaging Diagonstic Imaging: CT (without IV contrast) Plain Films/CT/US/NM/MRI: head Comments No acute intracranial hemorrhage or mass effect. No midline shift or tumors. Reviewed: Reviewed by Me Departure Impression Primary Impression: Sinusitis Qualified Codes: J01.00 - Acute maxillary sinusitis, unspecified Additional Impression: Sinus headache Disposition: HOME, SELF-CARE Condition: Stable Departure-Patient Inst. Decision time for Depature: 22:40 Referrals: [facility] (PCP) Primary Care Physician CHERRY MARTIN (Family) Primary Care Physician Patient Instructions: Sinusitis in Adults, Sinus Headache (DC) Add. Discharge Instructions: Tylenol 1000 mg every 8 hours as necessary for pain. Ibuprofen 800 mg every 8 hours as necessary for pain. Warm moist compresses applied to the face may be helpful for pain. Get plenty of sleep and drink lots of fluids to help her sinuses drain. Continue taking your allergy medicine as prescribed. Cefdinir 1 tablet twice a day with food for the next week. Expect to see turn around in your symptoms within the next 3 days. Follow up your primary care doctor if you're not seeing good results by Saturday- Saturday. All discharge instructions reviewed with patient and/or family. Voiced understanding. Scripts Cefdinir (Cefdinir) 300 Mg Capsule 300 MG PO BID for 7 Days, #14 CAP 0 Refills Prov: ELKE PRICE 09/04/19 ELKE PRICE Sep 04, 2019 21:36
[2019-09-04 21:55] LABS: BASOPHILS % (AUTO) 0 % (0-10); EOSINOPHILS # (AUTO) 0.1 10^3/uL (0.0-0.3); EOSINOPHILS % (AUTO) 1 % (0-10); HEMATOCRIT 36 % (35-52); LYMPHOCYTES # (AUTO) 2.7 X 10^3 (1.0-4.0); LYMPHOCYTES % (AUTO) 33 % (12-44); MEAN CORPUSCULAR HEMOGLOBIN 28 PG (25-34); MEAN CORPUSCULAR HGB CONC 34 G/DL (32-36); MEAN CORPUSCULAR VOLUME 85 FL (80-99); MEAN PLATELET VOLUME 10.5 FL (7.4-10.4); MONOCYTES # (AUTO) 0.7 X 10^3 (0.0-1.0); MONOCYTES % (AUTO) 8 % (0-12); NEUTROPHILS # (AUTO) 4.7 X 10^3 (1.8-7.8); NEUTROPHILS % (AUTO) 57 % (42-75); PLATELET COUNT 433 10^3/uL (130-400); RED CELL DISTRIBUTION WIDTH 15.6 % (10.0-14.5); WHITE BLOOD COUNT 8.2 10^3/uL (4.3-11.0)
[2019-09-04 22:05] LABS: ALBUMIN 3.9 GM/DL (3.2-4.5); CHLORIDE 104 MMOL/L (98-107); POTASSIUM 4.1 MMOL/L (3.6-5.0); SODIUM 136 MMOL/L (135-145)
[2019-09-04 22:07] LABS: CALCIUM 9.4 MG/DL (8.5-10.1)
[2019-09-04 22:08] LABS: GLUCOSE 272 MG/DL (70-105); TOTAL PROTEIN 7.4 GM/DL (6.4-8.2)
[2019-09-04 22:09] LABS: CARBON DIOXIDE 19 MMOL/L (21-32)
[2019-09-04 22:10] LABS: BILIRUBIN,TOTAL 0.2 MG/DL (0.1-1.0)
[2019-09-04 22:11] LABS: ALKALINE PHOSPHATASE 89 U/L (40-136)
[2019-09-04 22:12] LABS: CREATININE SERUM 0.85 MG/DL (0.60-1.30); GFR ESTIMATED > 60
[2019-09-04 22:13] LABS: BUN/CREATININE RATIO 9; ERYTHROCYTE SEDIMENTATION RATE 17 MM/HR (0-20)
[2019-09-04 22:14] LABS: ALANINE AMINOTRANSFERASE 12 U/L (0-55)
[2019-09-04] MEDS ORDERED: KETOROLAC 30 MG/ML VIAL IVP ONE (22:45)
[2019-09-04] MEDS ORDERED: CEFD300C3 PO (22:48)
[2019-09-04 22:56] VITALS: BP 130/85
--- NOTE | 2019-09-05 05:31 | Diagnostic Imaging Report ---
PROCEDURE: CT head without contrast. TECHNIQUE: Multiple contiguous axial images were obtained through the brain without the use of intravenous contrast. Auto Exposure Controls were utilized during the CT exam to meet ALARA standards for radiation dose reduction. INDICATION: Headache. FINDINGS: The ventricles and sulci are within normal limits. There is no hydrocephalus or cerebral edema. There is no midline shift or mass effect. There is no intracranial mass, hemorrhage, or extra-axial fluid collection. The visualized paranasal sinuses and mastoid air cells are clear. There are no regional areas of decreased attenuation appreciated to suggest an acute CVA. IMPRESSION: No acute intracranial abnormality. Dictated by: Dictated on workstation # [id number]
== END 2019-09-04 22:57 | disposition home or self-care (01) ==
LOC: EDUNIT# 21:06 → ER 21:09
DX: J32.1 Chronic frontal sinusitis (principal); J32.0 Chronic maxillary sinusitis; E11.9 Type 2 diabetes mellitus without complications; J45.909 Unspecified asthma, uncomplicated; N39.0 Urinary tract infection, site not specified; K21.9 Gastro-esophageal reflux disease without esophagitis; Z88.0 Allergy status to penicillin; Z88.8 Allergy status to other drugs, medicaments and biological substances; Z79.4 Long term (current) use of insulin; Z77.22 Contact with and (suspected) exposure to environmental tobacco smoke (acute) (chronic); Z82.49 Family history of ischemic heart disease and other diseases of the circulatory system
CPT/HCPCS: 36415; 70450; 80053; 85025; 85652; 86141

== ENCOUNTER 2019-09-15 23:26 | Emergency (ER) | payer OTHER ==
[~2019-09-15] VITALS: Ht 160 cm; Wt 83.0 kg
[~2019-09-15 23:26] MED LIST changes: +CEFD300C3 PO
[2019-09-15 23:37] VITALS: BP 170/104
[2019-09-15] MEDS ORDERED: CEPH500C PO (23:43)
--- NOTE | 2019-09-15 23:43 | ED EENT ---
History of Present Illness General Stated Complaint: LEFT SIDE JAW PAIN Source: patient Exam Limitations: no limitations History of Present Illness Date Seen by Provider: Sep 15, 2019 Time Seen by Provider: 23:30 Initial Comments Patient presents to ER by private conveyance with chief complaint and some pain along the angle of her left jaw for the past week or so. She went to [facility] and they gave her some topical gauze products that did not help. She has not tried ibuprofen but she did take some Tylenol with minimal relief. She feels pain in her ear. She's having no discharge from the ear no fevers chills nausea vomiting or difficulty swallowing. No difficulty breathing. Allergies and Home Medications Allergies Coded Allergies: Penicillins (Verified Allergy, Mild, RASH, 06/12/18) metoclopramide (Verified Allergy, Mild, RED RASH/GI UPSET, 06/12/18) Home Medications Albuterol Sulfate 1 Puff Puff, 2 PUFF IH Q6H PRN for SHORTNESS OF BREATH, (Reported) Cefdinir 300 Mg Capsule, 300 MG PO BID Prescribed by: ELKE PRICE on 09/04/198 Cefuroxime Axetil 500 Mg Tablet, 500 MG PO BID Prescribed by: LISS BAGLEY on 04/13/19 221 Cephalexin 500 Mg Capsule, 500 MG PO BID Prescribed by: ELKE PRICE on 03/22/192056 Cetirizine HCl 10 Mg Capsule, 10 MG PO DAILY, (Reported) Guaifenesin 1,200 Mg Tab.er.12h, 1,200 MG PO DAILY, (Reported) Hydrocodone Bit/Acetaminophen 1 Tab Tab, 1 TAB PO Q6H PRN for PAIN-MODERATE Prescribed by: VALERIA CONTRERAS on 06/17/18 1312 Hyoscyamine Sulfate 0.125 Mg Tab.subl, 1-2 TAB SL Q4H Prescribed by: NOEL CHIN on 04/06/19 0055 Insulin Glargine,Hum.rec.anlog 100 Unit/1 Ml Insuln.pen, 50 UNITS SC HS, (Reported) Metformin HCl 1,000 Mg Tablet, 1,000 MG PO BID, (Reported) Nitrofurantoin Monohyd/M-Cryst 100 Mg Capsule, 100 MG PO BID Prescribed by: NOEL CHIN on 10/04/18 2343 Ondansetron 4 Mg Tab.rapdis, 4 MG PO Q4H Prescribed by: NOEL CHIN on 04/06/1954 Ondansetron HCl 4 Mg Tab, 4 MG PO Q4H Prescribed by: AIDEE SOUZA on 05/26/182202 Pantoprazole Sodium 40 Mg Tablet.dr, 40 MG PO DAILY Prescribed by: NOEL CHIN on 10/04/18 234 Polyethylene Glycol 3350 17 Gm Powd.pack, 17 GM PO DAILY Prescribed by: NOEL CHIN on 04/06/1955 Sucralfate 1 Gm/10 Ml Oral.susp, 1 GM PO QID Prescribed by: NOEL CHIN on 10/04/182342 Patient Home Medication List Home Medication List Reviewed: Yes Review of Systems Review of Systems Constitutional: No chills, No diaphoresis, No fever Eyes: Denies Blindness, Denies Blurred Vision Ears: Denies Dizziness; Pain Nose: denies clots, denies congestion, denies pain Mouth: denies clots, denies loose teeth Throat: denies pain, denies swelling Respiratory: No cough, No short of breath All Other Systems Reviewed Negative Unless Noted: Yes Past Bvnsasl-Sxlrhl-Xujmcp Hx Patient Social History Alcohol Use: Denies Use Recreational Drug Use: No Smoking Status: Never a Smoker 2nd Hand Smoke Exposure: Yes Recent Foreign Travel: No Contact w/Someone Who Travel: No Recent Hopitalizations: No Immunizations Up To Date Tetanus Booster (TDap): Unknown PED Vaccines UTD: No Date of Pneumonia Vaccine: Dec 12, 2009 Date of Influenza Vaccine: Jan 09, 2019 Seasonal Allergies Seasonal Allergies: Yes Past Medical History Surgeries: Yes (HIATAL HERNIA REPAIR 2016; HARLEY 06/2018; BILAT KNEE SCOPES; EYE SURGERY ) Abdominal, Eye Surgery, Gallbladder, Orthopedic Respiratory: Yes Asthma Currently Using CPAP: No Currently Using BIPAP: No Cardiac: Yes High Cholesterol Neurological: No Reproductive Disorders: Yes Female Reproductive Disorders: Menstrual Problems Sexually Transmitted Disease: No HIV/AIDS: No Genitourinary: Yes Bladder Infection, UTI-Chronic Gastrointestinal: Yes (ESOPHAGEAL NARROWING; HIATAL HERNIA REPAIR 2016; CHOLECYSTECTOMY 06/2018) Gastroesophageal Reflux, Hiatal Hernia, Ulcer, Gall Bladder Disease Musculoskeletal: Yes Arthritis Endocrine: Yes Diabetes, Insulin dep HEENT: Yes (GLASSES; EYE SURGERY INFANT; DENTAL DECAY) Loss of Vision: Bilateral Hearing Impairment: Denies Cancer: No Psychosocial: No Integumentary: No Blood Disorders: No Adverse Reaction/Blood Tranf: No (N/A) Family Medical History Arthritis 19 FATHER 19 MOTHER G8 SISTER Asthma 19 FATHER 19 MOTHER G8 SISTER Cataracts 19 MOTHER Diabetes mellitus 19 FATHER 19 MOTHER G8 SISTER FH: leukemia 19 FATHER Myocardial infarction 19 MOTHER Parkinson's disease 19 FATHER Thyroid disease 19 MOTHER Asthma, CAD Over 55 Years Old, Diabetes PSH: -EYE SURGERY -BILATERAL KNEE SCOPES -HIATAL HERNIA REPAIR 07/2016 -LAP HARLEY 06/2018 -LAST COLONOSCOPY 01/08/19 Physical Exam Height, Weight, BMI Height: 5'3.00" Weight: 178lbs. 0.0oz. 80.025158ad; 31.00 BMI Method:Stated General Appearance: WD/WN, no apparent distress Eyes: bilateral eye normal inspection, bilateral eye PERRL, bilateral eye EOMI Ears: bilateral ear auricle normal, bilateral ear canal normal, bilateral ear TM normal Nose: normal inspection, active bleeding, discharge Mouth/Throat: other (patient only has a few anterior teeth on her mandible and nowhere else. No swelling pointing or erythema in her mouth. Tenderness to palpation over the left mandible angle without palpable silo adenitis) Neck: non-tender, full range of motion, supple, normal inspection Cardiovascular: normal peripheral pulses, regular rate, rhythm Respiratory: no respiratory distress, no accessory muscle use Neurologic/Psychiatric: alert, oriented x 3 Skin: normal color, warm/dry Progress/Results/Core Measures Progress Progress Note : Time: 23:39 Progress Note She could infection of the bone versus sialadenitis or sialadenolithiasis. The ear does not appear to be inflamed or involved. Is not tender to manipulation. Plan to put her on some Keflex. Her allergy to penicillin is red rash. We have encouraged her to use a hard candies and Tylenol, ibuprofen and warm compresses. Departure Impression Primary Impression: Submandibular sialolithiasis Disposition: 01 HOME, SELF-CARE Condition: Stable Departure-Patient Inst. Decision time for Depature: 23:41 Referrals: [facility] (PCP) Primary Care Physician CHERRY MARTIN (Family) Primary Care Physician Patient Instructions: Salivary Gland Stones Add. Discharge Instructions: Drink plenty of fluids. Suck on hard candies or throat lozenges throughout the day. Tylenol 1000 mg every 8 hours as necessary for pain. Ibuprofen 800 mg every 8 hours as necessary for pain. Keflex one tablet 3 times a day for the next week. Warm moist heat applied to the outside of the jaw can be helpful for pain. If it does not improve in the next 3-5 days then you should follow-up either with a dentist or your primary care doctor for reevaluation. If you have difficulty breathing or cannot swallow please return to the nearest ER. Scripts Cephalexin (Cephalexin) 500 Mg Capsule 500 MG PO TID for 7 Days, #21 CAP 0 Refills Prov: ELKE PRICE 09/15/19 ELKE PRICE Sep 15, 2019 23:43
--- OUTSIDE RECORDS SUMMARY | 2019-09-16 00:16 | XMS REPORT | Encounter Summary ---
Author Author [facility] Organization [facility] Address Unknown Phone Unavailable Care Team Providers Care Stage Director Name Role Phone Kirt Mi APRN PCP Reason for Visit * Reason Comments Error * (Routine) Referred By Contact Referred To Contact Status Reason Specialty Diagnoses / Procedures Una Velazquez MD [address] Ortho[facility] [place] [place] [address] Incomplete Encounter Details Care Team Description Date Type Department Una Velazquez MD [address] Orth[facility] [address] [place], [place] [id number] ERRONEOUS ENCOUNTER--DISREGARD (Primary Dx) 06/10/2019 Office Visit [facility] [address] [place] [address] Social History Date Tobacco Use [...]
--- OUTSIDE RECORDS SUMMARY | 2019-09-16 00:16 | XMS REPORT | Clinical Summary ---
Author Author [facility] Organization [facility] Address Unknown Phone Unavailable Care Team Providers Care Nitriles Lab Technician Name Role Phone Kirt Mi MICROSTRATEGY BI DEVELOPER PCP Source Comments Some departments are not documenting in the electronic medical record. If you d o not see the information that you expected, contact Release of Information in [facility] [employer] Information Management department at [phone] for further assistan ce in locating additional records.[facility] Allergies Comments Active Allergy Reactions Severity [...] Velazquez MD 06/22/2019 Prep for Case Gastroenterology from Last 3 Months Family History [...] POS resent II (Work) Advance Directives Patient Medical Geneticist Explanation Type Date Recorded Advance Directive/DPOA
--- OUTSIDE RECORDS SUMMARY | 2019-09-16 00:16 | XMS REPORT | Encounter Summary ---
Author Author [facility] Organization [facility] Address Unknown Phone Unavailable Care Team Providers Care Engineer/Conductor Name Role Phone Kirt Mi TUNNELING MACHINE OPERATOR PCP Encounter Details Care Team Description Date Type Department Una Velazquez MD [address] [facility] Ortho/Med [address] [place] [address] [phone] 06/22/2019 Prep for Case [facility] [address] [place] [phone] Social History Date Tobacco Use Types Packs/Day [...]
--- OUTSIDE RECORDS SUMMARY | 2019-09-16 00:16 | XMS REPORT | Encounter Summary ---
Author Author [facility] Organization [facility] Address Unknown Phone Unavailable Care Team Providers Care Production Machinist Name Role Phone Shmuel Kirt Talha PATHOLOGY TRANSCRIPTIONIST PCP Reason for Visit * Reason Comments Care Coordination Telehealth Encounter Details Care Team Description Date Type Department Una Velazquez MD [address] [facility] [address] [place] [address] Care Coordination (Telehealth) 06/08/2019 Telephone [facility] [address] [place] [address] Social History Date Tobacco Use [...] 06/09. Informed pt there will be a Informed Trades message with appt link and instruction s. [...]
--- OUTSIDE RECORDS SUMMARY | 2019-09-16 00:16 | XMS REPORT | Encounter Summary ---
Author Author [facility] Organization [facility] Address Unknown Phone Unavailable Care Team Providers Care Systems Support Specialist Name Role Phone Kirt Mi COSTUME SPECIALIST PCP Reason for Referral * Consult, Test & Treat (Routine) Referred By Contact Referred To Contact Status Reason Specialty Diagnoses / Procedures Una Velazquez MD [address] [facility] [address] [place] [address] Pretty Ng, PT [address] [place] [address] New Request Specialty Services Rehabilitation Diagnoses Required Pelvic floor dysfunction Abnormal defecation Scheduling Instructions Can be with any Pelvic Floor Biofeedback Therapist. * Radiology Services (Routine) Referred By Contact Referred To Contact Status Reason Specialty Diagnoses / Procedures Una Velazquez MD [address] [facility] [address] [place] [address] Formerly [facility] Nuclear [facility] [address] [address] No Auth Needed Radiology Diagnoses Reflux esophagitis Burping Belching Abdominal pain, unspecified abdominal location P rocedures NM GASTRIC EMPTYING TIME Reason for Visit * Reason Comments Esophageal Reflux Constipation * (Routine) Referred By Contact Referred To Contact Status Reason Specialty Diagnoses / Procedures Una Velazquez MD [address] [facility] [address] [place] [address] Incomplete Encounter Details Care Team Description Date Type Department Una Velazquez MD [address] Orth[facility] [address] [place] [address] [phone] Reflux esophagitis (Primary Dx); Pelvic floor dysfunction; Abnormal defecation; Burping; Belching; Abdominal pain, unspecified abdominal location 06/15/2019 Office Visit [facility] [address] [place] [address] Social History Date Tobacco [...] for you, you will schedule this at [facility] out today. A gastric emptying scan is a test that looks at how fast the food e mpties from your stomach into your intestines or bowel. Please call radiology [facility] at [phone] once Covid 19 precautions are lifted to schedule. Start Linzess 145 mcg daily, and bisacodyl suppository as needed when having inc omplete evacuation. Script was sent to [id number] - [place], [place] - [address] [facility] . A Flexible Sigmoidoscopy has been ordered for you. See separate Tapomat message w/ prep instructions. The GI Scheduling department will contact you to arrange t his once Covid-19 Precautions have been lifted. If you have not heard from sched uling or need to reschedule your procedure please call . A referral was placed for Pelvic Biofeedback Therapy. Please call their scheduli ng department at [phone] to set up appointment. They will not call you. If scheduling is too far out, please send us a Quibb message or call [phone] and we can send you a list [...] your appointment to complete paperwork. Phone number: [phone] Directions: Exit [address] at [place], turn to go North. Take the first turn going [address], onto [address] Continue 0.25 miles, and [facility] will be on your left. We are transitioning to new billing practices; if you have any questions about y our bill please call Patient Financial Services phone line: [phone] or [phone], Saturday-Saturday, 8:30a.m. - 4:30 p.m. Please send Tapomat message or call REANNA Grant Dr[address]s nurse at [phone] if you have any questions or concerns. General Instructions: To have a medication refilled: Please use the Quibb Refill request or cont act your pharmacy directly to request medication refills. Please allow 72 hours . [facility] Lab is on the 1st floor. It is open from 7 am-6pm Tu -Saturday and 6:30am-7pm on Mondays, and 7 am - Noon on Saturdays [facility] Lab is located on the 2nd floor and is open 8 am-5 pm Saturday-Saturday [facility] lab is located next to the check out desk and is open from 8 A M to 4:45 PM Saturday through Saturday. Radiology is on the 2nd floor of the Medical Office Building and the 2nd Floo r of [facility]. Radiology Scheduling can be reached at To Schedule office visits: Call [phone] select option 1. For procedure scheduling questions at the Main [facility] or [facility] se call ; for a procedure at [facility] please call . To receive appointment reminders on your cell phone: Make sure we have your c ell phone number, and Text [facility] to [phone]. Support for many chronic illnesses is available through [facility]: [facility] or [phone]. For urgent questions on nights, weekends or holidays, call the Lieutenant Colonel at , and ask for the doctor certified professional midwife for Gastroenterology. Call [phone] for an y emergencies. documented in this [...] them and their agreement to SHANTELLE hung [facility] policy and NPP via this telehealth visit during the [facility] Emergency Raven Bell is a 49 y.o. [...] This note was in part completed with [employer], a voice to text dictation system. S [...]
--- OUTSIDE RECORDS SUMMARY | 2019-09-16 00:16 | XMS REPORT | Encounter Summary ---
Author Author [facility] Organization [facility] Address Unknown Phone Unavailable Care Team Providers Care Retail Department Supervisor Name Role Phone Kirt Mi RESIDENTIAL INTERIOR DESIGNER PCP Reason for Visit * Reason Comments Appointment Procedure cancel request Encounter Details Care Team Description Date Type Department Una Velazquez MD [address] [facility] [address] [place] [address] Appointment (Procedure cancel request) 05/25/2019 Telephone [facility] [address] [place] [address] Social History Date Tobacco Use [...] reschedule procedure as she works in a [employer] home and has concerns about exposure to [...]
--- OUTSIDE RECORDS SUMMARY | 2019-09-16 00:16 | XMS REPORT | Encounter Summary ---
Author Author [facility] Organization [facility] Address Unknown Phone Unavailable Care Team Providers Care Disaster Response Director Name Role Phone Kirt Mi MASH PROCESSING OPERATOR PCP Reason for Visit * Reason Comments Abdominal pain Encounter Details Care Team Description Date Type Department Una Velazquez MD [address] Ortho[facility]Med [facility] [place] [address] Abdominal pain 04/06/2019 Telephone [facility] [address] [place] [address] Social History Date Tobacco Use [...] Juanita Johnson RN - 04/09/2019 10:52 AM STRATEGY CONSULTANT Addended by: JUANITA JOHNSON on: 04/09/2019 10:52 AM Modules accepted: Orders TEGY CONSULTANT * Telephone Encounter - Juanita Johnson RN - 04/09/2019 10:46 AM STRATEGY CONSULTANT Order placed. Attempted to call pt. Left detailed VM (authorization on file) inf orming pt of the below info, directions on how to drink bowel cleansing, and dir ections on daily bowel regimen of 25 mg senna and 1 cap of miralax at night whic h is available over the counter. Informed pt to call back if any questions or co ncerns. TEGY CONSULTANT * Telephone Encounter - Una Velazquez MD - 04/08/2019 9:06 AM STRATEGY CONSULTANT pls bowel cleansing instruction, then daily laxatives, 25 senna and 1 cap of amari alax at night. Thanks TEGY CONSULTANT * Telephone Encounter - Juanita Johnson RN - 2019 5:26 PM STRATEGY CONSULTANT Records received. Scanned in chart under media tab w/ Scan date 04/07/19. CT abd/pelvis w/o contrast: Abd Xray: Routing to Dr. Velazquez to review and advise on retained stool. TEGY CONSULTANT * Telephone Encounter - Juanita Johnson RN - 04/06/2019 1:25 PM STRATEGY CONSULTANT Pt called and stated she was seen in ER last night at [facility] in [place], [place] for kidney stones and an "obstruction [...] preformed. SYBIL message s ent to GI drug enforcement administration agent to request ER records. Attempted to call pt. Left detailed VM (authorization on file) w/ Dr. Velazquez 's statement above. Informed pt to call back if any questions or concerns. TEGY CONSULTANT documented in this encounter Plan of Treatment Not on filedocumented as of this encounter Visit Diagnoses Not on filedocumented in this encounter
--- OUTSIDE RECORDS SUMMARY | 2019-09-16 00:17 | XMS REPORT | Encounter Summary ---
Author Author [facility] Organization [facility] Address Unknown Phone Unavailable Care Team Providers Care Transitional Care Nurse Name Role Phone Shmule Kirt Talha RAILROAD DESIGN CONSULTANT PCP Reason for Visit * Reason Comments Results ARM Encounter Details Care Team Description Date Type Department Una Velazquez MD [address] [facility]/Med [address] [place] [address] Results (ARM) 03/19/2019 Telephone [facility] [address] [place] [address] Social History Date Tobacco Use [...] Juanita Johnson RN - 03/31/2019 10:48 AM ACCESS LIAISON Order placed. Teachable message sent to pt along w/ prep instructions. Contacted p t on information below. Also directed pt to look on [employer]. Pt verbalized under standing. Pt had no further questions or concerns. SS LIAISON * Telephone Encounter - Juanita Johnson RN - 03/31/2019 10:39 AM ACCESS LIAISON Progress Notes by Una Velazquez MD at 03/10/19 1514 Author: Una Velazquez MD Service: Gastroenterology Author Type: Physician Filed: 03/21/19 1124 Creation Time: 03/21/191122 Note Type: Progress Notes Status: Signed Smoke Eater: Una Velazquez MD (Physician) alberto Grant order flexible sigmoidoscopy with EMR to r/o hirschsprung disease. thx SS LIAISON * Telephone Encounter - Una Velazquez MD - 03/19/2019 3:09 PM ACCESS LIAISON Yes, flexible sigmoidoscopy with EMR (r/O hirschsprung disease). SS LIAISON * Telephone Encounter - Juanita Johnson RN - 03/19/2019 1:43 PM ACCESS LIAISON Pt called and request ARM results from 03/10/19: Reviewed results above w/ pt. Pt verbalized understanding. Had no further quest ions or concerns Routing to Dr. Velazquez to advise if ok to place Suction Biopsy EMR. SS LIAISON documented in this encounter Plan of Treatment Not on filedocumented as of this encounter Visit Diagnoses Not on filedocumented in this encounter
--- OUTSIDE RECORDS SUMMARY | 2019-09-16 00:17 | XMS REPORT | Encounter Summary ---
Author Author [facility] Organization [facility] Address Unknown Phone Unavailable Care Team Providers Care Anhydrous Ammonia Production Supervisor Name Role Phone Kirt Mi INTERNAL CONTROL CONSULTANT PCP Encounter Details Care Team Description Date Type Department Una Velazquez MD [address] Ortho/Med [address] [place] [address] [phone] Malfunction of anal sphincter (Primary D x); Difficulty defecating; Abnormal defecation; Anal reflex absent 03/31/2019 Prep for Case [facility] [address] [place] [address] Social History Date Tobacco Use [...]
--- OUTSIDE RECORDS SUMMARY | 2019-09-16 00:20 | XMS REPORT | Continuity of Care Document ---
Demographics Preferred Language Unknown Marital Status Unknown Sikhism Affiliation Unknown Race Unknown Ethnic Group Unknown [...] 250.02 DIABETES MELLITUS POORLY CONTROLLED 05/24/2009 MARIO JUICE PACKAGING MACHINES SETTER, CHERRY T 27 2.4 HYPERLIPIDEMIA HYPERLIPOPROTEINEMIAS (Old Classification) 05/24/2009 MARIO JUICE PACKAGING MACHINES SETTER, CHERRY T 250.02 DIABETES MELLITUS POORLY CONTROLLED 05/24/2009 MARIO JUICE PACKAGING MACHINES SETTER, CHERRY T 27 2.4 HYPERLIPIDEMIA HYPERLIPOPROTEINEMIAS (Old Classification) 05/24/2009 MARIO JUICE PACKAGING MACHINES SETTER, CHERRY T 250.02 DIABETES MELLITUS POORLY CONTROLLED 05/24/2009 MAROI JUICE PACKAGING MACHINES SETTER, CHERRY T 27 2.4 HYPERLIPIDEMIA HYPERLIPOPROTEINEMIAS (Old Classification) 05/24/2009 MARIO JUICE PACKAGING MACHINES SETTER, CHERRY T 250.02 DIABETES MELLITUS POORLY CONTROLLED 05/24/2009 MARIO JUICE PACKAGING MACHINES SETTER, CHERRY T 27 2.4 HYPERLIPIDEMIA HYPERLIPOPROTEINEMIAS (Old Classification) 05/24/2009 MARIO JUICE PACKAGING MACHINES SETTER, CHERRY T 250.02 DIABETES MELLITUS POORLY CONTROLLED 05/24/2009 MARIO JUICE PACKAGING MACHINES SETTER, CHERRY T 27 2.4 HYPERLIPIDEMIA HYPERLIPOPROTEINEMIAS (Old Classification) 06/14/2009 V72.31 Utilization Review Coordinator Exam, Routine 06/14/2009 RIAZ REAL DO V72.31 Utilization Review Coordinator Exam, Routine 06/14/2009 V72.31 Utilization Review Coordinator Exam, Routine 06/14/2009 V72.31 Utilization Review Coordinator Exam, Routine 06/14/2009 V72.31 Utilization Review Coordinator Exam, Routine 06/14/2009 V72.31 Utilization Review Coordinator Exam, Routine 06/14/2009 V72.31 Utilization Review Coordinator Exam, Routine 06/14/2009 V72.31 Utilization Review Coordinator Exam, Routine 06/14/2009 CHERRY MARTIN APRN V72.31 Utilization Review Coordinator Exam, Routine 06/14/2009 CHERRY MARTIN APRN V72.31 Utilization Review Coordinator Exam, Routine 06/14/2009 CHERRY MATRIN APRN T V72.31 Utilization Review Coordinator Exam, Routine 06/14/2009 CHERRY MARTIN APRN V72.31 Utilization Review Coordinator Exam, Routine 06/14/2009 CHERRY AMRTIN APRN V72.31 Utilization Review Coordinator Exam, Routine 06/14/2009 CHERRY MARTIN APRN V72.31 Utilization Review Coordinator Exam, Routine 06/14/2009 CHERRY MARTIN APRN V72.31 Utilization Review Coordinator Exam, Routine 07/19/2009 V58.69 christiano ing high-risk medication 07/19/2009 RIAZ REAL DO V58.69 taking high-risk medication 07/19/2009 V58.69 christiano ing high-risk medication 07/19/2009 V58.69 christiano ing high-risk medication 07/19/2009 V58.69 chrisitano ing high-risk medication 07/19/2009 V58.69 christiano ing [...] APRN 46 6.0 Acute Bronchitis 08/22/2009 MARIO JUICE PACKAGING MACHINES SETTER, CHERRY T 250.00 DIABETES MELLITUS 08/22/2009 MARIO JUICE PACKAGING MACHINES SETTER, CHERRY T 46 6.0 Acute Bronchitis 08/22/2009 MARIO JUICE PACKAGING MACHINES SETTER, CHERRY T 250.00 DIABETES MELLITUS 08/22/2009 MARIO JUICE PACKAGING MACHINES SETTER, CHERRY T 46 6.0 Acute Bronchitis 08/22/2009 MARIO JUICE PACKAGING MACHINES SETTER, CHERRY T 250.00 DIABETES MELLITUS 08/22/2009 MARIO JUICE PACKAGING MACHINES SETTER, CHERRY T 46 6.0 Acute Bronchitis 08/22/2009 MARIO JUICE PACKAGING MACHINES SETTER, CHERRY T 250.00 DIABETES MELLITUS 08/22/2009 MARIO JUICE PACKAGING MACHINES SETTER, CHERRY T 46 6.0 Acute Bronchitis 08/22/2009 MARIO JUICE PACKAGING MACHINES SETTER, CHERRY T 250.00 DIABETES MELLITUS 08/22/2009 MARIO JUICE PACKAGING MACHINES SETTER, CHERRY T 46 6.0 Acute Bronchitis 11/28/2009 [...] Vaccines Prophylactic Need Against Influenza 11/28/2009 MARIO JUICE PACKAGING MACHINES SETTER, CHERRY T V03.82 Need For Vaccination Pneumococcal [...] 2.0 Disturbance Of Skin Sensation 02/20/2010 MARIO JUICE PACKAGING MACHINES SETTER, CHERRY T 24 0.9 GOITER UNSPECIFIED 02/20/2010 MARIO JUICE PACKAGING MACHINES SETTER, CHERRY T 78 2.0 Disturbance Of Skin Sensation 02/20/2010 MARIO JUICE PACKAGING MACHINES SETTER, CHERRY T 24 0.9 GOITER UNSPECIFIED 02/20/2010 MARIO JUICE PACKAGING MACHINES SETTER, CHERRY T 78 2.0 Disturbance Of Skin Sensation 02/20/2010 MARIO JUICE PACKAGING MACHINES SETTER, CHERRY T 24 0.9 GOITER UNSPECIFIED 02/20/2010 MARIO SHRESTHAN, CHERRY T 78 2.0 Disturbance Of Skin Sensation 02/20/2010 MARIO SHRESTHAN, CHERRY T 24 0.9 GOITER UNSPECIFIED 02/20/2010 MARIO JUICE PACKAGING MACHINES SETTER, CHERRY T 78 2.0 Disturbance Of Skin Sensation 02/20/2010 MARIO JUICE PACKAGING MACHINES SETTER, CHERRY T 24 0.9 GOITER UNSPECIFIED 02/20/2010 [...] 46 5.9 Upper Respiratory Infection 03/31/2010 MARIO JUICE PACKAGING MACHINES SETTER, CHERRY T 78 6.2 Cough 03/31/2010 MARIO [...] 04/17/2010 466.0 Bron chitis, Acute 04/17/2010 CHERRY MARTNI APRN T 46 6.0 Bronchitis, Acute 04/17/2010 [...] pain, localized in the hip 09/14/2010 MARIO JUICE PACKAGING MACHINES SETTER, CHERRY T 719.45 joint pain, localized in [...] IN JOINT INVOLVING LOWER LEG 06/24/2012 719.46 ISAEBL N IN JOINT INVOLVING LOWER LEG 06/24/2012 [...] Code Description [place] [address] A1C (IN-HOUSE) 07/04/2012 ENDOC BRANDIE PETERS 07/04/2012 Orthopedi Kal Gibson 07/07/2012 25197 XRAY KNEE LEFT, 1 OR 2 VIEWS 09/02/2012 35572 ROUT INE VENIPUNCTURE 11/21/2012 90015 TSH 11/21/2012 77816 A1C (IN-HOUSE) 11/21/2012 16705 MICR O ALBUMIN-IN HOUSE 11/21/2012 18689 MICR OALBUMIN 11/21/2012 82948 CBC 11/21/2012 43811 CMP 11/21/2012 80322 LIPI D PANEL 11/21/2012 [id number] GF R CALC (RESULT ONLY) 11/21/2012 53378 A1C (IN-HOUSE) 07/24/2013 40569 ROUT INE VENIPUNCTURE 01/22/2014 41315 CMP 01/22/2014 13326 LIPI D PANEL 01/22/2014 66467 TSH 01/22/2014 18673 CBC 01/22/2014 28098 A1C (IN-HOUSE) 01/22/2014 14226 THER APUTIC INJ SQ/IM 05/31/2014 J1885 CLARIBEL DOL INJ 05/31/2014 41336 MICR O ALBUMIN-IN HOUSE 05/31/2014 50121 MICR OALBUMIN 05/31/2014 69746 XRAY CERVICAL SPINE, 2 OR 3 VIEWS [...] NR STATEMENT OF ADEQUACY: NR INTERPRETATION/RESULT: NR PAPER GRADER: NRG HPV mRNA E6/E7, SUREPATH VIAL Not [...] Status Pt. Type Provider Facility Loc./Unit Complaint [id number] 04/20/2016 12:09:00 Document Registration [id number] 07/02/2014 09:11:00 07/02/2014 23:59: 59 CLS Outpatient CHERRY MARTIN APRN [id number] 05/31/2014 09:13:00 05/31/2014 23:59: 59 CLS Outpatient CHERRY MARTIN APRN [id number] 03/31/2014 09:55:00 03/31/2014 23:59: 59 CLS Outpatient CHERRY MARTIN APRN [id number] 02/22/2014 16:10:00 02/22/2014 23:59: 59 CLS Outpatient CHERRY MARTIN APRN [id number] 01/22/2014 08:37:00 01/22/2014 23:59: 59 CLS Outpatient CHERRY MARTIN APRN [id number] 08/24/2013 09:05:00 08/24/2013 23:59: 59 CLS Outpatient CHERRY MARTIN APRN [id number] 07/24/2013 09:45:00 07/24/2013 23:59: 59 CLS Outpatient CHERRY MARTIN APRN [id number] 05/23/2012 08:12:00 05/23/2012 23:59: 59 CLS Outpatient [id number] 01/08/2012 09:40:00 01/08/2012 23:59: 59 CLS Outpatient RIAZ REAL DO Kelsi [id number] 01/08/2012 09:40:00 01/08/2012 23:59:5 9 CLS Outpatient [id number] 11/21/2012 09:20:00 Document Registration [id number] 09/02/2012 09:01:00 Document Registration [id number] 08/01/2012 09:41:00 Document Registration [id number] 07/04/2012 08:48:00 Document Registration [id number] 06/24/2012 13:23:00 Document Registration [id number] 09/07/2019 18:50:00 09/07/2019 23:59:5 9 CLS Outpatient CHERRY MARTIN APRN [facility] [id number] 05/07/2019 08:40:00 Document Registration [id number] 08/09/2017 09:00:00 Document Registration [id number] 07/22/2017 09:20:00 Document Registration [id number] 02/25/2017 10:20:00 Document Registration [id number] 02/11/2017 08:40:00 Document Registration
[2019-09-16] MEDS ORDERED: CEPH500C PO (19:22)
== END 2019-09-15 23:51 | disposition home or self-care (01) ==
LOC: EDUNIT# 23:26 → ER 23:29
DX: K11.5 Sialolithiasis (principal); J45.909 Unspecified asthma, uncomplicated; E11.9 Type 2 diabetes mellitus without complications; K21.9 Gastro-esophageal reflux disease without esophagitis; Z88.0 Allergy status to penicillin; Z88.8 Allergy status to other drugs, medicaments and biological substances; Z79.4 Long term (current) use of insulin; Z77.22 Contact with and (suspected) exposure to environmental tobacco smoke (acute) (chronic); Z82.49 Family history of ischemic heart disease and other diseases of the circulatory system
CPT/HCPCS: 99282

== ENCOUNTER 2019-12-17 23:30 | Emergency (ER) | payer OTHER ==
[~2019-12-17] VITALS: Ht 160 cm; Wt 83.0 kg
[~2019-12-17 23:30] MED LIST changes: -PANT40TA3 PO; +PANT40TA52 PO
[2019-12-17 23:56] VITALS: BP 146/92
[2019-12-18] MEDS ORDERED: CLINDAMYCIN 150 MG (CLEOCIN) CAP PO ONE
[2019-12-18] MEDS ORDERED: LIDOCAINE 2% VISCOUS 15 ML UDC MM ONE
[2019-12-18] MEDS ORDERED: CLIN300C11 PO (00:02)
--- NOTE | 2019-12-18 00:03 | ED EENT ---
History of Present Illness General Chief Complaint: Dental Problems/Pain Stated Complaint: GUM INFECTION Nursing Triage Note: Patient has an abscess-type wound to her lower-left gum. States onset was 2 days ago. Source: patient History of Present Illness Date Seen by Provider: Dec 18, 2019 Time Seen by Provider: 23:52 Initial Comments PT ARRIVES VIA POV FROM HOME C/O ABSCESS TO LEFT LOWER GUM/TOOTH AREA STATES SHE JUST NOTICED IT AT 2230 TONIGHT, WHEN "IT WAS SHOOTING OUT PUS" REPORTS TO ME SHE WAS UNAWARE OF ANY PROBLEM UNTIL THIS TIME NO FEVER NO SWELLING OF FACE NO HISTORY OF PRIOR PT IS INSULIN-DEPENDENT DIABETIC HAS NOT TAKEN ANYTHING FOR PAIN HAS BEEN TO [facility] IN PAST, BUT NOT FOR LONG TIME [place]CP: [facility] [place]ies and Home Medications Allergies Coded Allergies: Penicillins (Verified Allergy, Mild, RASH, 06/12/18) metoclopramide (Verified Allergy, Mild, RED RASH/GI UPSET, 06/12/18) Home Medications Albuterol Sulfate 1 Puff Puff, 2 PUFF IH Q6H PRN for SHORTNESS OF BREATH, (Reported) Cefdinir 300 Mg Capsule, 300 MG PO BID Prescribed by: ELKE PRICE on 09/04/19 2248 Cefuroxime Axetil 500 Mg Tablet, 500 MG PO BID Prescribed by: LISS BAGLEY on 04/13/19 221 Cephalexin 500 Mg Capsule, 500 MG PO BID Prescribed by: ELKE PRIEC on 03/22/192056 Cephalexin 500 Mg Capsule, 500 MG PO TID Prescribed by: ELKE PRICE on 09/16/19 192 Cetirizine HCl 10 Mg Capsule, 10 MG PO DAILY, (Reported) Clindamycin HCl 300 Mg Capsule, 300 MG PO QID Prescribed by: NOEL CHIN on 12/18/19 0002 Guaifenesin 1,200 Mg Tab.er.12h, 1,200 MG PO DAILY, (Reported) Hydrocodone Bit/Acetaminophen 1 Tab Tab, 1 TAB PO Q6H PRN for PAIN-MODERATE Prescribed by: VALERIA CONTRERAS on 06/17/18 1312 Hyoscyamine Sulfate 0.125 Mg Tab.subl, 1-2 TAB SL Q4H Prescribed by: NOEL CHIN on 04/06/19 0055 Insulin Glargine,Hum.rec.anlog 100 Unit/1 Ml Insuln.pen, 50 UNITS SC HS, (Reported) Metformin HCl 1,000 Mg Tablet, 1,000 MG PO BID, (Reported) Nitrofurantoin Monohyd/M-Cryst 100 Mg Capsule, 100 MG PO BID Prescribed by: NOEL CHIN on 10/04/182342 Ondansetron 4 Mg Tab.rapdis, 4 MG PO Q4H Prescribed by: NOEL HCIN on 04/06/1954 Ondansetron HCl 4 Mg Tab, 4 MG PO Q4H Prescribed by: AIDEE SOUZA on 05/26/182202 Pantoprazole Sodium 40 Mg Tablet.dr, 40 MG PO DAILY Prescribed by: NOEL CHIN on 10/04/182342 Polyethylene Glycol 3350 17 Gm Powd.pack, 17 GM PO DAILY Prescribed by: NOEL CHIN on 04/06/1955 Sucralfate 1 Gm/10 Ml Oral.susp, 1 GM PO QID Prescribed by: NOEL CHIN on 10/04/182342 Patient Home Medication List Home Medication List Reviewed: Yes Review of Systems Review of Systems Constitutional: no symptoms reported Mouth: see HPI Skin: no symptoms reported Neurological: No Symptoms Reported Past Gnbcrna-Tobplz-Judjcq Hx Past Med/Social Hx: Reviewed and Corrections made Patient Social History Alcohol Use: Denies Use Recreational Drug Use: No Smoking Status: Never a Smoker 2nd Hand Smoke Exposure: Yes Recent Foreign Travel: No Contact w/Someone Who Travel: No Recent Infectious Disease Expo: No Recent Hopitalizations: No Immunizations Up To Date Tetanus Booster (TDap): Unknown PED Vaccines UTD: No Date of Pneumonia Vaccine: Dec 12, 2009 Date of Influenza Vaccine: Jan 09, 2019 Seasonal Allergies Seasonal Allergies: Yes Past Medical History Surgeries: Yes (HIATAL HERNIA REPAIR 2016; HARLEY 06/2018; BILAT KNEE SCOPES; EYE SURGERY ) Abdominal, Eye Surgery, Gallbladder, Orthopedic Respiratory: Yes Asthma Currently Using CPAP: No Currently Using BIPAP: No Cardiac: Yes High Cholesterol Neurological: No Reproductive Disorders: Yes Female Reproductive Disorders: Menstrual Problems Sexually Transmitted Disease: No HIV/AIDS: No Genitourinary: Yes Bladder Infection, UTI-Chronic Gastrointestinal: Yes (ESOPHAGEAL NARROWING; HIATAL HERNIA REPAIR 2016; CHOLECYSTECTOMY 06/2018) Gastroesophageal Reflux, Hiatal Hernia, Ulcer, Gall Bladder Disease Musculoskeletal: Yes Arthritis Endocrine: Yes Diabetes, Insulin dep HEENT: Yes (GLASSES; EYE SURGERY ;EXTENSIVE DENTAL DECAY) Loss of Vision: Bilateral Hearing Impairment: Denies Cancer: No Psychosocial: No Integumentary: No Blood Disorders: No Adverse Reaction/Blood Tranf: No (N/A) Family Medical History Arthritis 19 FATHER 19 MOTHER G8 SISTER Asthma 19 FATHER 19 MOTHER G8 SISTER Cataracts 19 MOTHER Diabetes mellitus 19 FATHER 19 MOTHER G8 SISTER FH: leukemia 19 FATHER Myocardial infarction 19 MOTHER Parkinson's disease 19 FATHER Thyroid disease 19 MOTHER Asthma, CAD Over 55 Years Old, Diabetes PSH: -EYE SURGERY INFANT -BILATERAL KNEE SCOPES -HIATAL HERNIA REPAIR 07/2016 -LAP HARLEY 06/2018 -LAST COLONOSCOPY 01/08/19 Physical Exam Vital Signs Vital Signs - First Documented 12/17/19 23:56 Temp 36.3 Pulse 83 Resp 18 B/P (MAP) 146/92 (110) Pulse Ox 97 O2 Delivery Room Air Height, Weight, BMI Height: 5'3.00" Weight: 178lbs. 0.0oz. 80.301561ut; 32.00 BMI Method:Stated General Appearance: WD/WN, no apparent distress, other (SMILING, DOES NOT APPEAR TO BE IN ANY DISCOMFORT ) Ears: bilateral ear TM normal Nose: normal inspection Mouth/Throat: No trismus; other (MULTIPLE MISSING TEETH, AND REMAINING TEETH ALL WITH EXTENSIVE DECAY DOWN TO GUMS. LEFT LOWER CANINE/PREMOLAR TOOTH WITH MODERATE SURROUNDING INFLAMMATION AND TENDERNESS. NO DRAINAGE AT THIS TIME. NO FACIAL SWELLING. NO TRISMUS. ) Neck: non-tender, normal inspection; No lymphadenopathy (R), No lymphadenopathy (L) Cardiovascular: regular rate, rhythm, no murmur Respiratory: normal breath sounds Neurologic/Psychiatric: senior account representative II-XII nml as tested, no motor/sensory deficits, alert, normal mood/affect, oriented x 3 Skin: normal color, warm/dry Progress/Results/Core Measures Results/Orders My Orders Orders - NOEL CHIN DO Clindamycin Capsule (Cleocin Capsule) (12/18/19 00:00) Lidocaine 2% Viscous 15 Ml (Xylocaine Vi (12/18/19 00:00) Medications Given in ED Current Medications Medications Dose Ordered Sig/Hunter Route Start Time Stop Time Status Last Admin Dose Admin Clindamycin HCl 300 mg ONCE ONCE PO 12/18/19 00:00 12/18/19 00:01 DC 12/18/19 00:14 300 MG Lidocaine HCl 5 ml ONCE ONCE MM 12/18/19 00:00 12/18/19 00:01 DC 12/18/19 00:15 5 ML Vital Signs/I&O 12/17/19 23:56 Temp 36.3 Pulse 83 Resp 18 B/P (MAP) 146/92 (110) Pulse Ox 97 O2 Delivery Room Air Blood Pressure Mean: 110 Departure Impression Primary Impression: Dental abscess Additional Impression: DENTAL CARIES WITH ABSCESS Disposition: HOME, SELF-CARE Condition: Stable Departure-Patient Inst. Referrals: [facility]I (PCP) Primary Care Physician CHERRY MARTIN (Family) Primary Care Physician Patient Instructions: Tooth Abscess (DC), Tooth Decay, Adult (DC) Add. Discharge Instructions: FREQUENT SALT WATER SWISHES MOIST HEAT TO AREA AT 20 MINUTE INTERVALS TYLENOL AND MOTRIN NEEDED FOR PAIN FOLLOW UP WITH DENTIST SOON POSSIBLE--CALL IN THE MORNING TO SCHEDULE APPOINTMENT All discharge instructions reviewed with patient and/or family. Voiced understanding. Scripts Clindamycin HCl (Clindamycin HCl) 300 Mg Capsule 300 MG PO QID for 10 Days, #40 CAP Prov: NOEL CHIN DO 12/18/19 NOEL CHIN DO Dec 18, 2019 00:02
== END 2019-12-18 00:17 | disposition home or self-care (01) ==
LOC: EDUNIT# 23:30 → ER 23:33
DX: K04.7 Periapical abscess without sinus (principal); K02.9 Dental caries, unspecified; E11.9 Type 2 diabetes mellitus without complications; J45.909 Unspecified asthma, uncomplicated; K21.9 Gastro-esophageal reflux disease without esophagitis; Z88.0 Allergy status to penicillin; Z88.8 Allergy status to other drugs, medicaments and biological substances; Z79.4 Long term (current) use of insulin; Z77.22 Contact with and (suspected) exposure to environmental tobacco smoke (acute) (chronic); Z82.49 Family history of ischemic heart disease and other diseases of the circulatory system
CPT/HCPCS: 99283

== ENCOUNTER 2019-12-27 18:18 | Emergency (ER) | payer OTHER ==
[~2019-12-27] VITALS: Ht 160 cm; Wt 86.1 kg
[~2019-12-27 18:18] MED LIST changes: +CLIN300C11 PO
[2019-12-27 19:29] LABS: BASOPHILS % (AUTO) 1 % (0-10); EOSINOPHILS # (AUTO) 0.1 10^3/uL (0.0-0.3); EOSINOPHILS % (AUTO) 1 % (0-10); HEMATOCRIT 37 % (35-52); HEMOGLOBIN 12.2 g/dL (11.5-16.0); LYMPHOCYTES # (AUTO) 2.3 10^3/uL (1.0-4.0); LYMPHOCYTES % (AUTO) 33 % (12-44); MEAN CORPUSCULAR HEMOGLOBIN 28 pg (25-34); MEAN CORPUSCULAR HGB CONC 33 g/dL (32-36); MEAN CORPUSCULAR VOLUME 87 fL (80-99); MEAN PLATELET VOLUME 9.9 fL (9.0-12.2); MONOCYTES # (AUTO) 0.5 10^3/uL (0.0-1.0); MONOCYTES % (AUTO) 7 % (0-12); NEUTROPHILS % (AUTO) 58 % (42-75); PLATELET COUNT 440 10^3/uL (130-400)
[2019-12-27] MEDS ORDERED: ANTACID SUSP 30 ML UDC (MYLANTA) PO ONE (19:30)
[2019-12-27] MEDS ORDERED: LIDOCAINE 2% VISCOUS 15 ML UDC PO ONE (19:30)
[2019-12-27] MEDS ORDERED: PROMETHAZINE INJ 25 MG/ML (PHENERGAN) AMP IVP ONE (19:30)
--- NOTE | 2019-12-27 19:32 | ED GI ---
General Chief Complaint: Abdominal/GI Problems Stated Complaint: HIATAL HERNIA/VOMITING Source of Information: Patient History of Present Illness Date Seen by Provider: Dec 27, 2019 Time Seen by Provider: 19:23 Initial Comments PT ARRIVES VIA POV FROM HOME C/O "ACID REFLUX" STATES "ACID REFLUX KEEPS WAKING ME UP AND I THROW UP"--NOT ACTUAL EMESIS, GASTRIC CONTENTS COME INTO BACK OF THROAT "AND SOMETIMES EVEN INTO MY NOSE" IS A CHRONIC PROBLEM FOR MANY YEARS, AND HAS HAD HIATAL HERNIA REPAIR 07/2016, AND STATES THAT LAST YEAR IT WAS FOUND TO HAVE "RE-OPENED" AND WAS REFERRED TO . STATES SHE WAS SEEN AT 03/10/19, FOR THIS PROBLEM BUT HAS NOT FOLLOWED UP WITH THEM SINCE. PT CLAIMS "I TRIED TO CALL THEM BUT THEY NEVER CALLED BACK" PT TAKES PRILOSEC 40 MG BID WAS SEEN AT [facility] ON SATURDAY FOR THIS, AND WAS GIVEN RX FOR ZOFRAN. PT SLEEPS ON COUCH, STATES SHE HAS A RECLINER, BUT HAS NOT TRIED TO SLEEP IN IT. SYMPTOMS ARE NO DIFFERENT IN ANY WAY TONIGHT PT WITH A MULTITUDE OF VISITS HERE FOR VARIOUS COMPLAINTS. 10 VISITS IN 2019 LAST VISIT 12/18/19 FOR DENTAL PAIN/ABSCESS. PCP: [facility] Allergies and Home Medications Allergies Coded Allergies: Penicillins (Verified Allergy, Mild, RASH, 06/12/18) metoclopramide (Verified Allergy, Mild, RED RASH/GI UPSET, 06/12/18) Home Medications Albuterol Sulfate 1 Puff Puff, 2 PUFF IH Q6H PRN for SHORTNESS OF BREATH, (Reported) Cefdinir 300 Mg Capsule, 300 MG PO BID Prescribed by: ELKE PRICE on 09/04/192247 Cefuroxime Axetil 500 Mg Tablet, 500 MG PO BID Prescribed by: LISS BAGLEY on 04/13/192210 Cephalexin 500 Mg Capsule, 500 MG PO BID Prescribed by: ELKE PRICE on 03/22/192056 Cephalexin 500 Mg Capsule, 500 MG PO TID Prescribed by: ELKE PRICE on 09/16/191921 Cetirizine HCl 10 Mg Capsule, 10 MG PO DAILY, (Reported) Clindamycin HCl 300 Mg Capsule, 300 MG PO QID Prescribed by: NOEL CHIN on 12/18/19 0002 Guaifenesin 1,200 Mg Tab.er.12h, 1,200 MG PO DAILY, (Reported) Hydrocodone Bit/Acetaminophen 1 Tab Tab, 1 TAB PO Q6H PRN for PAIN-MODERATE Prescribed by: VALERIA CONTRERAS on 06/17/18 1312 Hyoscyamine Sulfate 0.125 Mg Tab.subl, 1-2 TAB SL Q4H Prescribed by: NOEL CHIN on 04/06/1954 Insulin Glargine,Hum.rec.anlog 100 Unit/1 Ml Insuln.pen, 50 UNITS SC HS, (Reported) Metformin HCl 1,000 Mg Tablet, 1,000 MG PO BID, (Reported) Nitrofurantoin Monohyd/M-Cryst 100 Mg Capsule, 100 MG PO BID Prescribed by: NOEL CHIN on 10/04/182342 Ondansetron 4 Mg Tab.rapdis, 4 MG PO Q4H Prescribed by: NOEL CHIN on 04/06/1954 Ondansetron HCl 4 Mg Tab, 4 MG PO Q4H Prescribed by: AIDEE SOUZA on 05/26/182202 Pantoprazole Sodium 40 Mg Tablet.dr, 40 MG PO DAILY Prescribed by: NOEL CHIN on 10/04/182342 Polyethylene Glycol 3350 17 Gm Powd.pack, 17 GM PO DAILY Prescribed by: NOEL CHIN on 04/06/1955 Sucralfate 1 Gm/10 Ml Oral.susp, 1 GM PO QID Prescribed by: NOEL CHIN on 10/04/182342 Patient Home Medication List Home Medication List Reviewed: Yes Review of Systems Review of Systems Constitutional: no symptoms reported Respiratory: No Symptoms Reported; Denies Cough, Denies Shortness of Air Cardiovascular: No Symptoms Reported; Denies Chest Pain Gastrointestinal: See HPI Genitourinary: No Symptoms Reported Musculoskeletal: no symptoms reported Skin: no symptoms reported Psychiatric/Neurological: No Symptoms Reported Endocrine: No Symptoms Reported Hematologic/Lymphatic: No Symptoms Reported Past Cdovopq-Xplteq-Cqcrts Hx Past Med/Social Hx: Reviewed and Corrections made Patient Social History Alcohol Use: Denies Use Recreational Drug Use: No Smoking Status: Never a Smoker 2nd Hand Smoke Exposure: Yes Recent Foreign Travel: No Contact w/Someone Who Travel: No Recent Hopitalizations: No Immunizations Up To Date Tetanus Booster (TDap): Unknown PED Vaccines UTD: No Date of Pneumonia Vaccine: Dec 12, 2009 Date of Influenza Vaccine: Jan 09, 2019 Seasonal Allergies Seasonal Allergies: Yes Past Medical History Surgeries: Yes (HIATAL HERNIA REPAIR 2016; HARLEY 06/2018; BILAT KNEE SCOPES; EYE SURGERY ) Abdominal, Eye Surgery, Gallbladder, Orthopedic Respiratory: Yes Asthma Currently Using CPAP: No Currently Using BIPAP: No Cardiac: Yes High Cholesterol Neurological: No Reproductive Disorders: Yes Female Reproductive Disorders: Menstrual Problems Sexually Transmitted Disease: No HIV/AIDS: No Genitourinary: Yes Bladder Infection, UTI-Chronic Gastrointestinal: Yes (ESOPHAGEAL NARROWING; HIATAL HERNIA REPAIR 2016; CHOLECYSTECTOMY 06/2018) Gastroesophageal Reflux, Hiatal Hernia, Ulcer, Gall Bladder Disease Musculoskeletal: Yes Arthritis Endocrine: Yes Diabetes, Insulin dep HEENT: Yes (GLASSES; EYE SURGERY ;EXTENSIVE DENTAL DECAY) Loss of Vision: Bilateral Hearing Impairment: Denies Cancer: No Psychosocial: No Integumentary: No Blood Disorders: No Adverse Reaction/Blood Tranf: No (N/A) Family Medical History Arthritis 19 FATHER 19 MOTHER G8 SISTER Asthma 19 FATHER 19 MOTHER G8 SISTER Cataracts 19 MOTHER Diabetes mellitus 19 FATHER 19 MOTHER G8 SISTER FH: leukemia 19 FATHER Myocardial infarction 19 MOTHER Parkinson's disease 19 FATHER Thyroid disease 19 MOTHER Asthma, CAD Over 55 Years Old, Diabetes PSH: -EYE SURGERY -BILATERAL KNEE SCOPES -HIATAL HERNIA REPAIR 07/2016 -LAP HARLEY 06/2018 -LAST COLONOSCOPY 01/08/19 Physical Exam Vital Signs Capillary Refill : Height/Weight/BMI Height: 5'3.00" Weight: 178lbs. 0.0oz. 80.311254ek; 32.00 BMI Method:Stated General Appearance: WD/WN, no apparent distress HEENT: other (POOR DENTITION) Neck: normal inspection Respiratory: normal breath sounds, no respiratory distress, no accessory muscle use Cardiovascular: regular rate, rhythm, no murmur Gastrointestinal: soft, tenderness (MILD EPIGASTRIC TENDERNESS) Extremities: normal inspection Back: no CVA tenderness Neurologic/Psychiatric: still tender II-XII nml as tested, no motor/sensory deficits, alert, normal mood/affect, oriented x 3 Skin: normal color, warm/dry Progress/Results/Core Measures Results/Orders Lab Results Laboratory Tests Test 12/27/19 19:17 Range/Units White Blood Count 7.0 4.3-11.0 10^3/uL Red Blood Count 4.29 3.80-5.11 10^6/uL Hemoglobin 12.2 11.5-16.0 g/dL Hematocrit 37 35-52 % Mean Corpuscular Volume 87 80-99 fL Mean Corpuscular Hemoglobin 28 25-34 pg Mean Corpuscular Hemoglobin Concent 33 32-36 g/dL Red Cell Distribution Width 15.2 H 10.0-14.5 % Platelet Count 440 H 130-400 10^3/uL Mean Platelet Volume 9.9 9.0-12.2 fL Immature Granulocyte % (Auto) 0 % Neutrophils (%) (Auto) 58 42-75 % Lymphocytes (%) (Auto) 33 12-44 % Monocytes (%) (Auto) 7 0-12 % Eosinophils (%) (Auto) 1 0-10 % Basophils (%) (Auto) 1 0-10 % Neutrophils # (Auto) 4.0 1.8-7.8 10^3/uL Lymphocytes # (Auto) 2.3 1.0-4.0 10^3/uL Monocytes # (Auto) 0.5 0.0-1.0 10^3/uL Eosinophils # (Auto) 0.1 0.0-0.3 10^3/uL Basophils # (Auto) 0.0 0.0-0.1 10^3/uL Immature Granulocyte # (Auto) 0.0 0.0-0.1 10^3/uL Sodium Level 136 135-145 MMOL/L Potassium Level 4.3 3.6-5.0 MMOL/L Chloride Level 102 98-107 MMOL/L Carbon Dioxide Level 22 21-32 MMOL/L Anion Gap 12 5-14 MMOL/L Blood Urea Nitrogen 11 7-18 MG/DL Creatinine 0.83 0.60-1.30 MG/DL Estimat Glomerular Filtration Rate > 60 BUN/Creatinine Ratio 13 Glucose Level 253 H 70-105 MG/DL Calcium Level 8.9 8.5-10.1 MG/DL Corrected Calcium 8.9 8.5-10.1 MG/DL Total Bilirubin 0.3 0.1-1.0 MG/DL Aspartate Amino Transf (AST/SGOT) 14 5-34 U/L Alanine Aminotransferase (ALT/SGPT) 19 0-55 U/L Alkaline Phosphatase 87 40-136 U/L Total Protein 8.0 6.4-8.2 GM/DL Albumin 4.0 3.2-4.5 GM/DL Amylase Level 42 25-125 U/L Lipase 35 8-78 U/L My Orders Orders - NOEL CHIN DO Amylase (12/27/19 19:47) Drug Screen Stat (Urine) (12/27/19 19:47) Medications Given in ED Current Medications Medications Dose Ordered Sig/Hunter Route Start Time Stop Time Status Last Admin Dose Admin Al Hydrox/Mg Hydrox/Simethicone 30 ml ONCE ONCE PO 12/27/19 19:30 12/27/19 19:31 DC 12/27/19 19:34 30 ML Lidocaine HCl 15 ml ONCE ONCE PO 12/27/19 19:30 12/27/19 19:31 DC 12/27/19 19:34 15 ML Promethazine HCl 12.5 mg ONCE ONCE IVP 12/27/19 19:30 12/27/19 19:31 DC 12/27/19 19:35 12.5 MG Progress Progress Note : Progress Note GIVEN PHENERGAN AND GI COCKTAIL Departure Impression Primary Impression: GERD Additional Impression: Hx of hiatal hernia Disposition: HOME, SELF-CARE Condition: Stable Departure-Patient Inst. Referrals: [facility] (PCP) Primary Care Physician CHERRY MARTIN (Family) Primary Care Physician Patient Instructions: Acid Reflux and GERD in Adults (DC), Hiatal Hernia (DC) Add. Discharge Instructions: CONTINUE PRILOSEC 40 MG TWICE A DAY SLEEP IN UPRIGHT POSITION IN RECLINER FOLLOW UP K[facility] FOR FURTHER CARE--CALL IN AM TO SCHEDULE APPOINTMENT All discharge instructions reviewed with patient and/or family. Voiced understanding. Scripts Sucralfate (Carafate) 1 Gm Tablet 1 GM PO QID, #60 TAB Prov: NOEL CHIN DO 12/27/19 NOEL CHIN DO Dec 27, 2019 19:32
[2019-12-27 19:48] LABS: ALANINE AMINOTRANSFERASE 19 U/L (0-55); ALKALINE PHOSPHATASE 87 U/L (40-136); BILIRUBIN,TOTAL 0.3 MG/DL (0.1-1.0); BUN/CREATININE RATIO 13; CALCIUM 8.9 MG/DL (8.5-10.1); CARBON DIOXIDE 22 MMOL/L (21-32); CHLORIDE 102 MMOL/L (98-107); CREATININE SERUM 0.83 MG/DL (0.60-1.30); GFR ESTIMATED > 60; GLUCOSE 253 MG/DL (70-105); LIPASE 35 U/L (8-78); POTASSIUM 4.3 MMOL/L (3.6-5.0); SODIUM 136 MMOL/L (135-145)
[2019-12-27] MEDS ORDERED: SUCR1TAB36 PO (19:56)
[2019-12-27 20:07] VITALS: BP 139/98
== END 2019-12-27 20:10 | disposition home or self-care (01) ==
LOC: EDUNIT# 18:18 → ER 18:19
DX: K21.9 Gastro-esophageal reflux disease without esophagitis (principal); J45.909 Unspecified asthma, uncomplicated; E11.9 Type 2 diabetes mellitus without complications; Z82.49 Family history of ischemic heart disease and other diseases of the circulatory system; Z83.3 Family history of diabetes mellitus; Z82.61 Family history of arthritis; Z80.6 Family history of leukemia; Z77.22 Contact with and (suspected) exposure to environmental tobacco smoke (acute) (chronic); Z79.4 Long term (current) use of insulin; Z88.0 Allergy status to penicillin; Z88.8 Allergy status to other drugs, medicaments and biological substances
CPT/HCPCS: 36415; 80053; 82150; 83690; 85025; 99283

== ENCOUNTER 2020-03-12 20:04 | Emergency (ER) | payer OTHER ==
[~2020-03-12] VITALS: Ht 160 cm; Wt 86.0 kg
[~2020-03-12 20:04] MED LIST changes: -CLIN300C11 PO; +CLIN300C12 PO; -MONT10TA26 PO; +MONT10TA97 PO
[2020-03-12] MEDS ORDERED: RX-TRAMADOL 50 MG (ULTRAM) TAB PPK#4 PO STA (20:30)
--- NOTE | 2020-03-12 20:30 | ED EENT ---
History of Present Illness General Chief Complaint: Dental Problems/Pain Stated Complaint: JAW/LOWER TEETH PAIN/INFECTION Source: patient Exam Limitations: no limitations History of Present Illness Date Seen by Provider: Mar 12, 2020 Time Seen by Provider: 20:27 Initial Comments To ER with reports of lower midline mandible teeth pain for about a month. She saw [facility] and was given antibiotics which she completed about a month ago. No swelling just persistent pain. She tried to make an appointment with [facility] but they were booked out for 6 weeks. Timing/Duration: abrupt Severity: moderate Location: dental Associated Symptoms: facial pain/swelling Allergies and Home Medications Allergies Coded Allergies: Penicillins (Verified Allergy, Mild, RASH, 06/12/18) metoclopramide (Verified Allergy, Mild, RED RASH/GI UPSET, 06/12/18) Home Medications Albuterol Sulfate 1 Puff Puff, 2 PUFF IH Q6H PRN for SHORTNESS OF BREATH, (Reported) Cefdinir 300 Mg Capsule, 300 MG PO BID Prescribed by: ELKE PRICE on 09/04/192247 Cefuroxime Axetil 500 Mg Tablet, 500 MG PO BID Prescribed by: LISS BAGLEY on 04/13/19 221 Cephalexin 500 Mg Capsule, 500 MG PO BID Prescribed by: ELKE PRICE on 03/22/192056 Cephalexin 500 Mg Capsule, 500 MG PO TID Prescribed by: ELKE PRICE on 09/16/19 192 Cetirizine HCl 10 Mg Capsule, 10 MG PO DAILY, (Reported) Clindamycin HCl 300 Mg Capsule, 300 MG PO QID Prescribed by: NOEL CHIN on 12/18/19 0002 Guaifenesin 1,200 Mg Tab.er.12h, 1,200 MG PO DAILY, (Reported) Hydrocodone Bit/Acetaminophen 1 Tab Tab, 1 TAB PO Q6H PRN for PAIN-MODERATE Prescribed by: VALERIA CONTRERAS on 06/17/18 1312 Hyoscyamine Sulfate 0.125 Mg Tab.subl, 1-2 TAB SL Q4H Prescribed by: NOEL CHIN on 04/06/19 0055 Insulin Glargine,Hum.rec.anlog 100 Unit/1 Ml Insuln.pen, 50 UNITS SC HS, (Reported) Metformin HCl 1,000 Mg Tablet, 1,000 MG PO BID, (Reported) Nitrofurantoin Monohyd/M-Cryst 100 Mg Capsule, 100 MG PO BID Prescribed by: NOEL CHIN on 10/04/182342 Ondansetron 4 Mg Tab.rapdis, 4 MG PO Q4H Prescribed by: NOEL CHIN on 04/06/1954 Ondansetron HCl 4 Mg Tab, 4 MG PO Q4H Prescribed by: AIDEE SOUZA on 05/26/182202 Pantoprazole Sodium 40 Mg Tablet.dr, 40 MG PO DAILY Prescribed by: NOEL CHIN on 10/04/182342 Polyethylene Glycol 3350 17 Gm Powd.pack, 17 GM PO DAILY Prescribed by: NOEL CHIN on 04/06/1955 Sucralfate 1 Gm/10 Ml Oral.susp, 1 GM PO QID Prescribed by: NOEL CHIN on 10/04/182342 Sucralfate 1 Gm Tablet, 1 GM PO QID Prescribed by: NOEL CHIN on 12/27/191955 Patient Home Medication List Home Medication List Reviewed: Yes Review of Systems Review of Systems Constitutional: see HPI Eyes: No Symptoms Reported Ears: No Symptoms Reported Nose: no symptoms reported Mouth: see HPI Throat: no symptoms reported Respiratory: no symptoms reported Cardiovascular: no symptoms reported Musculoskeletal: no symptoms reported Past Ndauxsr-Vbdits-Bvhbwp Hx Patient Social History Alcohol Use: Denies Use Recreational Drug Use: No Smoking Status: Never a Smoker 2nd Hand Smoke Exposure: Yes Recent Foreign Travel: No Contact w/Someone Who Travel: No Recent Hopitalizations: No Physical Abuse: No Sexual Abuse: No Mistreated: No Fear: No Immunizations Up To Date Tetanus Booster (TDap): Unknown PED Vaccines UTD: No Date of Pneumonia Vaccine: Jan 02, 2020 Date of Influenza Vaccine: Jan 02, 2020 Seasonal Allergies Seasonal Allergies: Yes Past Medical History Surgeries: Yes (HIATAL HERNIA REPAIR 2016; HARLEY 06/2018; BILAT KNEE SCOPES; EYE SURGERY ) Abdominal, Eye Surgery, Gallbladder, Orthopedic Respiratory: Yes Asthma Currently Using CPAP: No Currently Using BIPAP: No Cardiac: Yes High Cholesterol Neurological: No Reproductive Disorders: Yes Female Reproductive Disorders: Menstrual Problems Sexually Transmitted Disease: No HIV/AIDS: No Genitourinary: Yes Bladder Infection, UTI-Chronic Gastrointestinal: Yes (ESOPHAGEAL NARROWING; HIATAL HERNIA REPAIR 2016; CHOLECYSTECTOMY 06/2018) Gastroesophageal Reflux, Hiatal Hernia, Ulcer, Gall Bladder Disease Musculoskeletal: Yes Arthritis Endocrine: Yes Diabetes, Insulin dep HEENT: Yes (GLASSES; EYE SURGERY INFANT;EXTENSIVE DENTAL DECAY) Loss of Vision: Bilateral Hearing Impairment: Denies Cancer: No Psychosocial: No Integumentary: No Blood Disorders: No Adverse Reaction/Blood Tranf: No (N/A) Family Medical History Arthritis 19 FATHER 19 MOTHER G8 SISTER Asthma 19 FATHER 19 MOTHER G8 SISTER Cataracts 19 MOTHER Diabetes mellitus 19 FATHER 19 MOTHER G8 SISTER FH: leukemia 19 FATHER Myocardial infarction 19 MOTHER Parkinson's disease 19 FATHER Thyroid disease 19 MOTHER Asthma, CAD Over 55 Years Old, Diabetes PSH: -EYE SURGERY -BILATERAL KNEE SCOPES -HIATAL HERNIA REPAIR 07/2016 -LAP HARLEY 06/2018 -LAST COLONOSCOPY 01/08/19 Physical Exam Height, Weight, BMI Height: 5'3.00" Weight: 178lbs. 0.0oz. 80.996231oq; 33.00 BMI Method:Stated General Appearance: WD/WN, no apparent distress Eyes: bilateral eye normal inspection, bilateral eye PERRL, bilateral eye EOMI Ears: bilateral ear auricle normal, bilateral ear canal normal, bilateral ear TM normal Mouth/Throat: No mandibular swelling, No tonsillar swelling; other (All of the remaining teeth on the mandible are eroded fractured and carious but there is no swelling to suggest abscess. Did a mental nerve block bilaterally using a total of 1.5 mL of bupivacaine with epinephrine on each side.) Neck: non-tender, full range of motion; No lymphadenopathy (R), No lymphadenopathy (L) Respiratory: no respiratory distress, no accessory muscle use Neurologic/Psychiatric: alert, normal mood/affect, oriented x 3 Skin: normal color, warm/dry Departure Impression Primary Impression: Pain, dental Disposition: HOME, SELF-CARE Condition: Stable Departure-Patient Inst. Decision time for Depature: 20:30 Referrals: [facility]/ (PCP) Primary Care Physician CHERRY MARTIN (Family) Primary Care Physician Patient Instructions: Dental Pain ED Add. Discharge Instructions: 1. Take the pain medication as directed. All discharge instructions reviewed with patient and/or family. Voiced understanding. LISS BAGLEY APRN Mar 12, 2020 20:30
[2020-03-12 20:41] VITALS: BP 0/0
== END 2020-03-12 20:41 | disposition home or self-care (01) ==
LOC: EDUNIT# 20:04 → ER 20:06
DX: K08.89 Other specified disorders of teeth and supporting structures (principal); K21.9 Gastro-esophageal reflux disease without esophagitis; J45.909 Unspecified asthma, uncomplicated; E11.9 Type 2 diabetes mellitus without complications; Z82.61 Family history of arthritis; Z83.3 Family history of diabetes mellitus; Z82.49 Family history of ischemic heart disease and other diseases of the circulatory system; Z80.6 Family history of leukemia; Z77.22 Contact with and (suspected) exposure to environmental tobacco smoke (acute) (chronic); Z88.0 Allergy status to penicillin; Z88.8 Allergy status to other drugs, medicaments and biological substances; Z79.4 Long term (current) use of insulin
CPT/HCPCS: 99283

== ENCOUNTER 2020-12-05 13:31 | Emergency (ER) | payer OTHER ==
[~2020-12-05] VITALS: Ht 162 cm; Wt 84.0 kg
[~2020-12-05 13:31] MED LIST changes: +DOXY-311 PO; -DOXY100C42 PO; +ERYT-108 PO; -ERYT-99 PO; +MONT10TA32 PO; -MONT10TA97 PO; -SULF1TAB35 PO; +SULF1TAB38 PO
[2020-12-05 14:03] LABS: BILIRUBIN,URINE NEGATIVE (NEGATIVE); CLARITY,URINE CLEAR; COLOR,URINE YELLOW; GLUCOSE, URINE (UA) 3+ (NEGATIVE); KETONES,URINE NEGATIVE (NEGATIVE); LEUKOCYTE ESTERASE ,URINE NEGATIVE (NEGATIVE); NITRITE,URINE NEGATIVE (NEGATIVE); PROTEIN,URINE NEGATIVE (NEGATIVE)
[2020-12-05 14:21] LABS: BACTERIA,URINE NEGATIVE /HPF; SQUAMOUS EPITHELIAL CELL,UR 0-2 /HPF
[2020-12-05 14:22] LABS: YEAST,URINE FEW /HPF
--- NOTE | 2020-12-05 14:24 | ED Abdominal Pain ---
General Chief Complaint: Abdominal/GI Problems Stated Complaint: ABD PAIN, HIATAL HERNIA Nursing Triage Note: AMB TO ROOM WITH C/O ABD PAIN X 1 WEEK HAS PMH OF HIATAL HERNIA Source of Information: Patient Exam Limitations: No Limitations History of Present Illness Date Seen by Provider: Dec 05, 2020 Time Seen by Provider: 14:09 Initial Comments This is a well-appearing 50-year-old female who presented to the ER with complaints of midepigastric abdominal pain x1 week. States that she was eating today around noon and she vomited 2 times. Has history of ventral hernia and is concerned for strangulation or incarceration. Was to have repaired beginning of year but her procedure was cancelled due to COVID. No fever, chills, cough, shortness of breath. Has intermittent nausea/vomiting and has had diarrhea x1 week. Allergies and Home Medications Allergies Coded Allergies: Penicillins (Verified Allergy, Mild, RASH, 06/12/18) metoclopramide (Verified Allergy, Mild, RED RASH/GI UPSET, 06/12/18) Patient Home Medication List Home Medication List Reviewed: Yes Albuterol Sulfate (Proair Hfa) 1 Puff Puff, 2 PUFF IH Q6H PRN for SHORTNESS OF BREATH, (Reported) Entered as Reported by: LAUREN PAYNE on 12/02/16 223 Cefdinir (Cefdinir) 300 Mg Capsule, 300 MG PO BID Prescribed by: ELKE PRICE on 09/04/19 2248 Cefuroxime Axetil (Cefuroxime) 500 Mg Tablet, 500 MG PO BID Prescribed by: LISS BAGLEY on 04/13/19 221 Cephalexin (Keflex) 500 Mg Capsule, 500 MG PO BID Prescribed by: ELKE PRICE on 03/22/192056 Cephalexin (Cephalexin) 500 Mg Capsule, 500 MG PO TID Prescribed by: ELKE PRICE on 09/16/19 192 Cetirizine HCl (Zyrtec) 10 Mg Capsule, 10 MG PO DAILY, (Reported) Entered as Reported by: FLAVIA DUNHAM on 04/04/16 2340 Clindamycin HCl (Clindamycin HCl) 300 Mg Capsule, 300 MG PO QID Prescribed by: NOEL CHIN on 12/18/19 0002 Guaifenesin (Mucinex) 1,200 Mg Tab.er.12h, 1,200 MG PO DAILY, (Reported) Entered as Reported by: ANDREA BARBER on 06/12/18 0953 Hydrocodone Bit/Acetaminophen (Lortab 5 Mg Tablet) 1 Tab Tab, 1 TAB PO Q6H PRN for PAIN-MODERATE Prescribed by: VALERIA CONTRERAS on 06/17/18 1312 Hyoscyamine Sulfate (Levsin-Sl) 0.125 Mg Tab.subl, 1-2 TAB SL Q4H Prescribed by: NOEL CHIN on 04/06/1954 Insulin Glargine,Hum.rec.anlog (Lantus Solostar) 100 Unit/1 Ml Insuln.pen, 50 UNITS SC HS, (Reported) Entered as Reported by: FLAVIA DUNHAM on 07/13/152140 Metformin HCl (Metformin HCl) 1,000 Mg Tablet, 1,000 MG PO BID, (Reported) Entered as Reported by: FLAVIA DUNHAM on 07/13/152140 Nitrofurantoin Monohyd/M-Cryst (Macrobid 100 mg Capsule) 100 Mg Capsule, 100 MG PO BID Prescribed by: NOEL CHIN on 10/04/182342 Ondansetron (Ondansetron Odt) 4 Mg Tab.rapdis, 4 MG PO Q4H Prescribed by: NOEL CHIN on 04/06/1954 Ondansetron (Ondansetron Odt) 4 Mg Tab.rapdis, 4 MG PO Q6H PRN for NAUSEA/VOMITING-1ST LINE Prescribed by: DIANN GALVEZ on 12/05/20 1558 Ondansetron HCl (Zofran) 4 Mg Tab, 4 MG PO Q4H Prescribed by: AIDEE SOUZA on 05/26/182202 Pantoprazole Sodium (Protonix) 40 Mg Tablet.dr, 40 MG PO DAILY Prescribed by: NOEL CHIN on 10/04/182342 Polyethylene Glycol 3350 (Miralax) 17 Gm Powd.pack, 17 GM PO DAILY Prescribed by: NOEL CHIN on 04/06/1955 Sucralfate (Carafate) 1 Gm/10 Ml Oral.susp, 1 GM PO QID Prescribed by: NOEL CHIN on 10/04/182342 Sucralfate (Carafate) 1 Gm Tablet, 1 GM PO QID Prescribed by: NOEL CHIN on 12/27/191955 Review of Systems Review of Systems Constitutional: no symptoms reported EENTM: No Symptoms Reported Respiratory: No Symptoms Reported Cardiovascular: No Symptoms Reported Gastrointestinal: See HPI Genitourinary: No Symptoms Reported Musculoskeletal: no symptoms reported Skin: other ("redness on belly") Psychiatric/Neurological: No Symptoms Reported Endocrine: No Symptoms Reported Hematologic/Lymphatic: No Symptoms Reported Past Flke[place]-Ocvtkf-Ywlkwx Hx Immunizations Up To Date Tetanus Booster (TDap): Unknown PED Vaccines UTD: No Seasonal Allergies Seasonal Allergies: Yes Past Medical History Surgeries: Yes (HIATAL HERNIA REPAIR 2016; HARLEY 06/2018; BILAT KNEE SCOPES; EYE SURGERY ) Abdominal, Eye Surgery, Gallbladder, Orthopedic Respiratory: Yes Asthma Currently Using CPAP: No Currently Using BIPAP: No Cardiac: Yes High Cholesterol Neurological: No Reproductive Disorders: Yes Female Reproductive Disorders: Menstrual Problems Sexually Transmitted Disease: No HIV/AIDS: No Genitourinary: Yes Bladder Infection, UTI-Chronic Gastrointestinal: Yes (ESOPHAGEAL NARROWING; HIATAL HERNIA REPAIR 2016; CHOLECYSTECTOMY 06/2018) Gastroesophageal Reflux, Hiatal Hernia, Ulcer, Gall Bladder Disease Musculoskeletal: Yes Arthritis Endocrine: Yes Diabetes, Insulin dep HEENT: Yes (GLASSES; EYE SURGERY INFANT;EXTENSIVE DENTAL DECAY) Loss of Vision: Bilateral Hearing Impairment: Denies Cancer: No Psychosocial: No Integumentary: No Blood Disorders: No Adverse Reaction/Blood Tranf: No (N/A) Family Medical History Arthritis 19 FATHER 19 MOTHER G8 SISTER Asthma 19 FATHER 19 MOTHER G8 SISTER Cataracts 19 MOTHER Diabetes mellitus 19 FATHER 19 MOTHER G8 SISTER FH: leukemia 19 FATHER Myocardial infarction 19 MOTHER Parkinson's disease 19 FATHER Thyroid disease 19 MOTHER Asthma, CAD Over 55 Years Old, Diabetes PSH: -EYE SURGERY -BILATERAL KNEE SCOPES -HIATAL HERNIA REPAIR 07/2016 -LAP HARLEY 06/2018 -LAST COLONOSCOPY 01/08/19 Physical Exam Vital Signs Vital Signs - First Documented 12/05/20 13:35 Temp 36.3 Pulse 84 Resp 18 B/P (MAP) 183/103 (129) Pulse Ox 100 O2 Delivery Room Air Capillary Refill : Less Than 3 Seconds Height/Weight/BMI Height: 5'3.00" Weight: 178lbs. 0.0oz. 80.144847tq; 32.00 BMI Method:Stated General Appearance: WD/WN, no apparent distress HEENT: PERRL/EOMI, normal ENT inspection, pharynx normal Neck: full range of motion, normal inspection Respiratory: lungs clear, normal breath sounds, no respiratory distress, no accessory muscle use Cardiovascular: regular rate, rhythm, no edema, no murmur Gastrointestinal: normal bowel sounds, no pulsatile mass (mid epigastric ), distended, tenderness; No hernia, No mass Extremities: normal range of motion, normal inspection, no pedal edema Back: normal inspection, no vertebral tenderness Neurologic/Psychiatric: no motor/sensory deficits, alert, normal mood/affect, oriented x 3 Skin: normal color, warm/dry Lymphatic: no adenopathy Progress/Results/Core Measures Results/Orders Lab Results Laboratory Tests Test 12/05/20 13:55 12/05/20 14:29 12/05/20 14:56 Range/Units Urine Color YELLOW Urine Clarity CLEAR Urine pH 6.0 5-9 Urine Specific [place] 1.020 1.016-1.022 Urine Protein NEGATIVE NEGATIVE Urine Glucose (UA) 3+ H NEGATIVE Urine Ketones NEGATIVE NEGATIVE Urine Nitrite NEGATIVE NEGATIVE Urine Bilirubin NEGATIVE NEGATIVE Urine Urobilinogen 0.2 < = 1.0 MG/DL Urine Leukocyte Esterase NEGATIVE NEGATIVE Urine RBC (Auto) NEGATIVE NEGATIVE Urine RBC NONE /HPF Urine WBC NONE /HPF Urine Squamous Epithelial Cells 0-2 /HPF Urine Crystals NONE /LPF Urine Bacteria NEGATIVE /HPF Urine Casts NONE /LPF Urine Mucus NEGATIVE /LPF Urine Yeast FEW H /HPF Urine Culture Indicated YES Sodium Level 137 135-145 MMOL/L Potassium Level 4.1 3.6-5.0 MMOL/L Chloride Level 107 98-107 MMOL/L Carbon Dioxide Level 20 L 21-32 MMOL/L Anion Gap 10 5-14 MMOL/L Blood Urea Nitrogen 9 7-18 MG/DL Creatinine 0.76 0.60-1.30 MG/DL Estimat Glomerular Filtration Rate 81 BUN/Creatinine Ratio 12 Glucose Level 269 H 70-105 MG/DL Calcium Level 9.2 8.5-10.1 MG/DL Corrected Calcium 9.4 8.5-10.1 MG/DL Total Bilirubin 0.2 0.1-1.0 MG/DL Aspartate Amino Transf (AST/SGOT) 15 5-34 U/L Alanine Aminotransferase (ALT/SGPT) 15 0-55 U/L Alkaline Phosphatase 81 40-136 U/L Total Creatine Kinase 89 29-168 U/L C-Reactive Protein High Sensitivity 0.23 0.00-0.50 MG/DL Total Protein 7.2 6.4-8.2 GM/DL Albumin 3.8 3.2-4.5 GM/DL White Blood Count 8.2 4.3-11.0 10^3/uL Red Blood Count 3.81 3.80-5.11 10^6/uL Hemoglobin 11.4 L 11.5-16.0 g/dL Hematocrit 35 35-52 % Mean Corpuscular Volume 92 80-99 fL Mean Corpuscular Hemoglobin 30 25-34 pg Mean Corpuscular Hemoglobin Concent 33 32-36 g/dL Red Cell Distribution Width 14.7 H 10.0-14.5 % Platelet Count 342 130-400 10^3/uL Mean Platelet Volume 10.1 9.0-12.2 fL Immature Granulocyte % (Auto) 0 % Neutrophils (%) (Auto) 69 42-75 % Lymphocytes (%) (Auto) 23 12-44 % Monocytes (%) (Auto) 6 0-12 % Eosinophils (%) (Auto) 1 0-10 % Basophils (%) (Auto) 1 0-10 % Neutrophils # (Auto) 5.7 1.8-7.8 X 10^3 Lymphocytes # (Auto) 1.9 1.0-4.0 X 10^3 Monocytes # (Auto) 0.5 0.0-1.0 X 10^3 Eosinophils # (Auto) 0.1 0.0-0.3 10^3/uL Basophils # (Auto) 0.0 0.0-0.1 10^3/uL Immature Granulocyte # (Auto) 0.0 0.0-0.1 10^3/uL Micro Results Microbiology 12/05/20 Urine Culture - Preliminary, Resulted Culture In Progress My Orders Orders - DIANN GALVEZ APRN Urinalysis (12/05/20 13:44) Cbc With Automated Diff (12/05/20 14:21) Comprehensive Metabolic Panel (12/05/20 14:21) Creatine Kinase (12/05/20 14:21) Hs C Reactive Protein (12/05/20 14:21) Ct Abdomen/Pelvis W (12/05/20 14:21) Urine Culture (12/05/20 13:55) Ondansetron Injection (Zofran Injectio (12/05/20 14:30) Fentanyl Inj (Sublimaze Injection) (12/05/20 14:30) Iohexol Injection (Omnipaque 350 Mg/Ml 1 (12/05/20 15:15) Received Contrast (Hold Metformin- Contr (12/05/20 15:15) Sodium Chloride Flush (Catheter Flush Sy (12/05/20 15:15) Ns (Ivpb) (Sodium Chloride 0.9% Ivpb Bag (12/05/20 15:15) Medications Given in ED Vital Signs/I&O 12/05/20 12/05/20 13:35 16:24 Temp 36.3 Pulse 84 70 Resp 18 18 B/P (MAP) 183/103 (129) 128/78 Pulse Ox 100 73 O2 Delivery Room Air Room Air Blood Pressure Mean: 129 Progress Progress Note : Progress Note Patient examined. No distress. Laughing talking about school. No redness or warmth seen on abdomen. Labs reviewed and are unremarkable. CT abd/pelvis show no perforation or incarcerated hernia. Will give Zofran PRN nausea. To follow up with her primary care provider for p ersistent symptoms. Reviewed discharge POC and she is agreeable with plan. Diagnostic Imaging Diagonstic Imaging: CT Plain Films/CT/US/NM/MRI: abdomen, pelvis Comments [facility] [place] NAME: THOMASPilyLONILAYLA [facility] REC#: [id number] PT STATUS: DEP ER : 1970 PHYSICIAN: DIANN GALVEZ BRAZER RESISTANCE ADMIT DATE: 12/05/20/ER Signed Date of Exam:12/05/20 CT ABDOMEN/PELVIS W PROCEDURE: CT abdomen and pelvis with contrast. TECHNIQUE: Multiple contiguous axial images were obtained through the abdomen and pelvis after administration of intravenous contrast. Auto Exposure Controls were utilized during the CT exam to meet ALARA standards for radiation dose reduction. All CT scans use one or more of the following dose optimizing techniques: Automated exposure control, MA and/or KvP adjustment based on patient size and exam type or iterative reconstruction. INDICATION: Abdominal pain, bloating, vomiting. COMPARISON: 04/13/2019. FINDINGS: The stomach and proximal duodenum are distended with ingested debris. No gastric wall thickening. No perigastric edema. The aortomesenteric artery angle is normal. The SMA did not appear to compress the transverse duodenum, and the space between that structure and the aorta is normal. No findings of small or large bowel obstruction. Much of the left colon is decompressed and difficult to evaluate and visualize. There is a small hiatal hernia. The gallbladder is absent. The liver and bile ducts are unremarkable. The pancreas is nonacute. The spleen and adrenals are negative. Kidneys are unobstructed. There are calculi within right lower pole calyces, nonobstructing and chronic. No opaque ureteral stone. There is aortoiliac atherosclerotic vascular disease without aneurysm, dissection, or rupture. There is heterogeneity of the uterus. There may be a fibroid on its right fundal aspect. There is a right adnexal cyst showing no complexity measuring 3.2 cm. The left adnexa are normal. The urinary bladder is normal. There is no mesenteric or retroperitoneal lymphadenopathy. IMPRESSION: 1. Nonspecific gastroduodenal dilatation may reflect recently ingested meal. No diverticulitis or appreciable appendicitis. No focal inflammatory changes. No scout obstruction, and no perforation. Right renal calculus and a right ovarian cyst. No hydronephrosis or acute appearing adnexal lesion. 2. Probably fibroid uterus. No ascites or free air. Dictated by: Dictated on workstation # [id number] Dict: 12/05/20 1530 Trans: 12/05/20 1729 [id number] Interpreted by: TIFFANY GONSALVES Electronically signed by: TIFFANY GONASLVES 12/05/20 1729 Reviewed: Reviewed by Or Departure Impression Primary Impression: Gastroenteritis Disposition: 01 HOME, SELF-CARE Condition: Improved Departure-Patient Inst. Decision time for Depature: 15:55 Referrals: [facility] (PCP) Primary Care Physician JESUS ALVARADO (Family) Primary Care Physician Patient Instructions: [id number], Gas and Bloating Add. Discharge Instructions: Plan: 1. Clear liquid diet the remainder of today. Advance slowly to BRAT diet. 2. May use Zofran every 6 hours as needed for nausea/vomiting. 3. Drink plenty of fluids. 4. May use over the counter Imodium for persistent diarrhea. 5. Follow up with your doctor for persistent problems. 6. Return for any new or concerning symptoms. All discharge instructions reviewed with patient and/or family. Voiced understanding. Scripts Ondansetron (Ondansetron Odt) 4 Mg Tab.rapdis 4 MG PO Q6H PRN for NAUSEA/VOMITING-1ST LINE, #30 TAB 0 Refills Prov: DIANN GALVEZ BRAZER RESISTANCE 12/05/20 DIANN GALVEZ BRAZER RESISTANCE Dec 05, 2020 14:24
[2020-12-05] MEDS ORDERED: ONDANSETRON 4 MG/2 ML (SDV) Z0FRAN IVP ONE (14:30)
[2020-12-05] MEDS ORDERED: fentaNYL INJ 100 MCG/2 ML AMP IVP ONE (14:30)
[2020-12-05 15:01] LABS: BASOPHILS % (AUTO) 1 % (0-10); EOSINOPHILS # (AUTO) 0.1 10^3/uL (0.0-0.3); EOSINOPHILS % (AUTO) 1 % (0-10); HEMATOCRIT 35 % (35-52); HEMOGLOBIN 11.4 g/dL (11.5-16.0); LYMPHOCYTES # (AUTO) 1.9 X 10^3 (1.0-4.0); LYMPHOCYTES % (AUTO) 23 % (12-44); MEAN CORPUSCULAR HEMOGLOBIN 30 pg (25-34); MEAN CORPUSCULAR HGB CONC 33 g/dL (32-36); MEAN CORPUSCULAR VOLUME 92 fL (80-99); MEAN PLATELET VOLUME 10.1 fL (9.0-12.2); MONOCYTES # (AUTO) 0.5 X 10^3 (0.0-1.0); MONOCYTES % (AUTO) 6 % (0-12); NEUTROPHILS # (AUTO) 5.7 X 10^3 (1.8-7.8); NEUTROPHILS % (AUTO) 69 % (42-75); PLATELET COUNT 342 10^3/uL (130-400); WHITE BLOOD COUNT 8.2 10^3/uL (4.3-11.0)
[2020-12-05] MEDS ORDERED: HOLD METFORMIN - RECEIVED CONTRAST 20 ML VIAL IV SCH (15:15)
[2020-12-05] MEDS ORDERED: IOHEXOL 350 MG/ML 100 ML (OMNIPAQUE 350) VIAL IV ONE (15:15)
[2020-12-05] MEDS ORDERED: CATHETER FLUSH 10 ML SYR IV PRN (15:15)
[2020-12-05] MEDS ORDERED: NS 100 ML (IVPB) BAG IV ONE (15:15)
[2020-12-05 15:19] LABS: ALBUMIN 3.8 GM/DL (3.2-4.5); POTASSIUM 4.1 MMOL/L (3.6-5.0)
[2020-12-05 15:21] LABS: CALCIUM 9.2 MG/DL (8.5-10.1)
[2020-12-05 15:22] LABS: TOTAL PROTEIN 7.2 GM/DL (6.4-8.2)
[2020-12-05 15:24] LABS: BILIRUBIN,TOTAL 0.2 MG/DL (0.1-1.0)
[2020-12-05 15:26] LABS: CREATININE SERUM 0.76 MG/DL (0.60-1.30)
--- NOTE | 2020-12-05 15:46 | Diagnostic Imaging Report ---
PROCEDURE: CT abdomen and pelvis with contrast. TECHNIQUE: Multiple contiguous axial images were obtained through the abdomen and pelvis after administration of intravenous contrast. Auto Exposure Controls were utilized during the CT exam to meet ALARA standards for radiation dose reduction. All CT scans use one or more of the following dose optimizing techniques: Automated exposure control, MA and/or KvP adjustment based on patient size and exam type or iterative reconstruction. INDICATION: Abdominal pain, bloating, vomiting. COMPARISON: 04/13/2019. FINDINGS: The stomach and proximal duodenum are distended with ingested debris. No gastric wall thickening. No perigastric edema. The aortomesenteric artery angle is normal. The SMA did not appear to compress the transverse duodenum, and the space between that structure and the aorta is normal. No findings of small or large bowel obstruction. Much of the left colon is decompressed and difficult to evaluate and visualize. There is a small hiatal hernia. The gallbladder is absent. The liver and bile ducts are unremarkable. The pancreas is nonacute. The spleen and adrenals are negative. Kidneys are unobstructed. There are calculi within right lower pole calyces, nonobstructing and chronic. No opaque ureteral stone. There is aortoiliac atherosclerotic vascular disease without aneurysm, dissection, or rupture. There is heterogeneity of the uterus. There may be a fibroid on its right fundal aspect. There is a right adnexal cyst showing no complexity measuring 3.2 cm. The left adnexa are normal. The urinary bladder is normal. There is no mesenteric or retroperitoneal lymphadenopathy. IMPRESSION: 1. Nonspecific gastroduodenal dilatation may reflect recently ingested meal. No diverticulitis or appreciable appendicitis. No focal inflammatory changes. No scout obstruction, and no perforation. Right renal calculus and a right ovarian cyst. No hydronephrosis or acute appearing adnexal lesion. 2. Probably fibroid uterus. No ascites or free air. Dictated by: Dictated on workstation # [id number]
[2020-12-05] MEDS ORDERED: ONDA4TAB11 PO (15:58)
[2020-12-05 16:24] VITALS: BP 128/78
== END 2020-12-05 16:24 | disposition home or self-care (01) ==
LOC: EDUNIT# 13:31 → ER 13:33
DX: K52.9 Noninfective gastroenteritis and colitis, unspecified (principal); E11.9 Type 2 diabetes mellitus without complications; J45.909 Unspecified asthma, uncomplicated; K21.9 Gastro-esophageal reflux disease without esophagitis; Z90.49 Acquired absence of other specified parts of digestive tract; Z79.4 Long term (current) use of insulin; Z79.899 Other long term (current) drug therapy
CPT/HCPCS: 36415; 74177; 80053; 81000; 82550; 85025; 86141; 87088

== ENCOUNTER 2021-07-22 20:32 | Emergency (ER) | payer OTHER ==
[~2021-07-22] VITALS: Ht 160 cm; Wt 86.0 kg
[~2021-07-22 20:32] MED LIST changes: +CLIN-144 PO; -CLIN300C12 PO; +MONT-40 PO; -MONT10TA32 PO; +ONDA-106 PO; -ONDA8TAB15 PO
--- NOTE | 2021-07-22 20:58 | ED General ---
General Chief Complaint: General Problems/Pain Stated Complaint: L SIDE LOWER BACK PAIN Source of Information: Patient Exam Limitations: No Limitations (AGUILAR REAL) History of Present Illness Date Seen by Provider: July 22, 2021 Time Seen by Provider: 20:55 Initial Comments Patient is a 51-year-old female who presents ED with left flank pain. Described as sharp without radiation. Pain is constant over the past 2 days. Denies of any specific injuries. She denies any urinary symptoms abdominal pain vomiting. She reports chronic diarrhea. She is concerned for UTI she noted some white substance in her urine. History of similar type pain diagnosed with UTI and states this feels very similar. She believes she has a history of kidney stones but denies of any surgical intervention. Denies of any bloody urine. No radiating pain, fever, chest pain, cough or shortness of breath, lower extremity weakness or sensory changes. Patient denies any trauma. She has no swelling, bruising to the back (AGUILAR REAL) Allergies and Home Medications Allergies Coded Allergies: Penicillins (Verified Allergy, Mild, RASH, 06/12/18) metoclopramide (Verified Allergy, Mild, RED RASH/GI UPSET, 06/12/18) Patient Home Medication List Home Medication List Reviewed: Yes (AGUILAR REAL) Albuterol Sulfate (Proair Hfa) 1 Puff Puff, 2 PUFF IH Q6H PRN for SHORTNESS OF BREATH, (Reported) Entered as Reported by: LAUREN PAYNE on 12/02/16 223 Cefdinir (Cefdinir) 300 Mg Capsule, 300 MG PO BID Prescribed by: ELKE PRICE on 09/04/19 224 Cefuroxime Axetil (Cefuroxime) 500 Mg Tablet, 500 MG PO BID Prescribed by: LISS BAGLEY on 04/13/19 221 Cephalexin (Keflex) 500 Mg Capsule, 500 MG PO BID Prescribed by: ELKE PRICE on 03/22/192056 Cephalexin (Cephalexin) 500 Mg Capsule, 500 MG PO TID Prescribed by: ELKE PRICE on 09/16/19 1922 Cetirizine HCl (Zyrtec) 10 Mg Capsule, 10 MG PO DAILY, (Reported) Entered as Reported by: FLAVIA DUNHAM on 04/04/16 2340 Clindamycin HCl (Clindamycin HCl) 300 Mg Capsule, 300 MG PO QID Prescribed by: NOEL CHIN on 12/18/19 0002 Cyclobenzaprine HCl (Cyclobenzaprine HCl) 10 Mg Tablet, 10 MG PO TID Prescribed by: ASIF LEON on 07/22/212258 Fluconazole (Diflucan) 150 Mg Tablet, 150 MG PO DAILY Prescribed by: ASIF LEON on 07/23/21 1216 Guaifenesin (Mucinex) 1,200 Mg Tab.er.12h, 1,200 MG PO DAILY, (Reported) Entered as Reported by: ANDREA BARBER on 06/12/18 0953 Hydrocodone Bit/Acetaminophen (Lortab 5 Mg Tablet) 1 Tab Tab, 1 TAB PO Q6H PRN for PAIN-MODERATE Prescribed by: VALERIA CONTRERAS on 06/17/18 1312 Hydrocodone/Acetaminophen (Hydrocodone-Acetamin 5-325 mg) 5 Mg-325 Mg Tablet, 1 TAB PO Q4H PRN for PAIN-MODERATE (5-7) Prescribed by: ASIF LEON on 07/22/212258 Hyoscyamine Sulfate (Levsin-Sl) 0.125 Mg Tab.subl, 1-2 TAB SL Q4H Prescribed by: NOEL CHIN on 04/06/19 005 Insulin Glargine,Hum.rec.anlog (Lantus Solostar) 100 Unit/1 Ml Insuln.pen, 50 UNITS SC HS, (Reported) Entered as Reported by: FLAVIA DUNHAM on 07/13/152140 Metformin HCl (Metformin HCl) 1,000 Mg Tablet, 1,000 MG PO BID, (Reported) Entered as Reported by: FLAVIA DUNHAM on 07/13/152140 Naproxen (Naproxen) 500 Mg Tablet.dr, 500 MG PO BID Prescribed by: ASIF LEON on 07/22/212258 Nitrofurantoin Monohyd/M-Cryst (Macrobid 100 mg Capsule) 100 Mg Capsule, 100 MG PO BID Prescribed by: NOEL CHIN on 10/04/18 234 Ondansetron (Ondansetron Odt) 4 Mg Tab.rapdis, 4 MG PO Q4H Prescribed by: NOEL CHIN on 04/06/19 005 Ondansetron (Ondansetron Odt) 4 Mg Tab.rapdis, 4 MG PO Q6H PRN for NAUSEA/VOMITING-1ST LINE Prescribed by: DIANN GALVEZ on 12/05/20 1558 Ondansetron HCl (Zofran) 4 Mg Tab, 4 MG PO Q4H Prescribed by: AIDEE SOUZA on 05/26/182202 Pantoprazole Sodium (Protonix) 40 Mg Tablet.dr, 40 MG PO DAILY Prescribed by: NOEL CHIN on 10/04/182342 Polyethylene Glycol 3350 (Miralax) 17 Gm Powd.pack, 17 GM PO DAILY Prescribed by: NOEL CHIN on 04/06/1955 Sucralfate (Carafate) 1 Gm/10 Ml Oral.susp, 1 GM PO QID Prescribed by: NOEL CHIN on 10/04/182342 Sucralfate (Carafate) 1 Gm Tablet, 1 GM PO QID Prescribed by: NOEL CHIN on 12/27/191955 Review of Systems Review of Systems Constitutional: No chills, No diaphoresis, No malaise, No weakness EENTM: No ear pain, No blurred vision, No double vision Respiratory: No cough, No dyspnea on exertion, No short of breath Cardiovascular: No chest pain Gastrointestinal: No abdominal pain, No nausea Genitourinary: No decreased output Musculoskeletal: back pain; No joint pain, No muscle pain, No muscle stiffness Skin: No change in color, No change in hair/nails (AGUILAR REAL) All Other Systems Reviewed Negative Unless Noted: Yes (AGUILAR REAL) Past Slvbjls-Ktibws-Eshrvj Hx Immunizations Up To Date Tetanus Booster (TDap): Unknown PED Vaccines UTD: No First/Initial COVID19 Vaccinat: MAR Second COVID19 Vaccination Franco: MAR (AGUILAR REAL) Seasonal Allergies Seasonal Allergies: Yes (AGUILAR REAL) Past Medical History Surgeries: Yes (HIATAL HERNIA REPAIR 2016; HARLEY 06/2018; BILAT KNEE SCOPES; EYE SURGERY ) Abdominal, Eye Surgery, Gallbladder, Orthopedic Respiratory: Yes Asthma Currently Using CPAP: No Currently Using BIPAP: No Cardiac: Yes High Cholesterol Neurological: No Reproductive Disorders: Yes Female Reproductive Disorders: Menstrual Problems Sexually Transmitted Disease: No HIV/AIDS: No Genitourinary: Yes Bladder Infection, UTI-Chronic Gastrointestinal: Yes (ESOPHAGEAL NARROWING; HIATAL HERNIA REPAIR 2016; CHOLECYSTECTOMY 06/2018) Gastroesophageal Reflux, Hiatal Hernia, Ulcer, Gall Bladder Disease Musculoskeletal: Yes Arthritis Endocrine: Yes Diabetes, Insulin dep HEENT: Yes (GLASSES; EYE SURGERY ;EXTENSIVE DENTAL DECAY) Loss of Vision: Bilateral Hearing Impairment: Denies Cancer: No Psychosocial: No Integumentary: No Blood Disorders: No Adverse Reaction/Blood Tranf: No (N/A) (AGUILAR REAL) Family Medical History Arthritis 19 FATHER 19 MOTHER G8 SISTER Asthma 19 FATHER 19 MOTHER G8 SISTER Cataracts 19 MOTHER Diabetes mellitus 19 FATHER 19 MOTHER G8 SISTER FH: leukemia 19 FATHER Myocardial infarction 19 MOTHER Parkinson's disease 19 FATHER Thyroid disease 19 MOTHER Asthma, CAD Over 55 Years Old, Diabetes PSH: -EYE SURGERY INFANT -BILATERAL KNEE SCOPES -HIATAL HERNIA REPAIR 07/2016 -LAP HARLEY 06/2018 -LAST COLONOSCOPY 01/08/19 (AGUILAR REAL) Physical Exam Vital Signs Vital Signs - First Documented 07/22/21 20:40 Temp 36.0 Pulse 80 Resp 18 B/P (MAP) 154/86 (108) Pulse Ox 96 O2 Delivery Room Air (ELSY,NOEL K DO) Vital Signs Capillary Refill : (AGUILAR REAL) Height, Weight, BMI Height: 5'3.00" Weight: 178lbs. 0.0oz. 80.192536hr; 32.00 BMI Method:Stated General Appearance: WD/WN Eyes: Bilateral Eye Normal Inspection, Bilateral Eye PERRL, Bilateral Eye EOMI, Bilateral Eye Abnormal EOM HEENT: PERRL/EOMI, TMs Normal, Normal ENT Inspection, Pharynx Normal Neck: Full Range of Motion, Normal Inspection, Non Tender, Supple Respiratory: Chest Non Tender, Lungs Clear, Normal Breath Sounds, No Accessory Muscle Use Cardiovascular: Regular Rate, Rhythm, No Edema, No Gallop, No JVD Gastrointestinal: Normal Bowel Sounds, No Organomegaly, No Pulsatile Mass Back: CVA Tenderness (L); No Vertebral Tenderness Extremity: Normal Capillary Refill, Normal Inspection Neurologic/Psychiatric: Alert, Oriented x3, No Motor/Sensory Deficits, body and fender mechanic II- XII Norm as Tested Skin: Normal Color, Warm/Dry (AGUILAR REAL) Progress/Results/Core Measures Suspected Sepsis SIRS Temperature: Pulse: Respiratory Rate: Laboratory Tests 07/22/21 21:30: White Blood Count 7.1 Blood Pressure / Mean: Laboratory Tests 07/22/21 21:30: Creatinine 0.80, Platelet Count 339, Total Bilirubin 0.3 (AGUILAR REAL) Results/Orders Lab Results Laboratory Tests Test 07/22/21 20:42 07/22/21 21:30 Range/Units Urine Color YELLOW Urine Clarity CLEAR Urine pH 6.0 5-9 Urine Specific [place] 1.025 H 1.016-1.022 Urine Protein NEGATIVE NEGATIVE Urine Glucose (UA) 3+ H NEGATIVE Urine Ketones NEGATIVE NEGATIVE Urine Nitrite NEGATIVE NEGATIVE Urine Bilirubin NEGATIVE NEGATIVE Urine Urobilinogen 0.2 < = 1.0 MG/DL Urine Leukocyte Esterase NEGATIVE NEGATIVE Urine RBC (Auto) NEGATIVE NEGATIVE Urine RBC NONE /HPF Urine WBC 2-5 /HPF Urine Squamous Epithelial Cells 2-5 /HPF Urine Crystals NONE /LPF Urine Bacteria FEW H /HPF Urine Casts NONE /LPF Urine Mucus NEGATIVE /LPF Urine Yeast MODERATE H /HPF Urine Culture Indicated YES White Blood Count 7.1 4.3-11.0 10^3/uL Red Blood Count 3.83 3.80-5.11 10^6/uL Hemoglobin 11.3 L 11.5-16.0 g/dL Hematocrit 34 L 35-52 % Mean Corpuscular Volume 89 80-99 fL Mean Corpuscular Hemoglobin 30 25-34 pg Mean Corpuscular Hemoglobin Concent 33 32-36 g/dL Red Cell Distribution Width 13.9 10.0-14.5 % Platelet Count 339 130-400 10^3/uL Mean Platelet Volume 9.9 9.0-12.2 fL Immature Granulocyte % (Auto) 0 % Neutrophils (%) (Auto) 53 42-75 % Lymphocytes (%) (Auto) 38 12-44 % Monocytes (%) (Auto) 8 0-12 % Eosinophils (%) (Auto) 1 0-10 % Basophils (%) (Auto) 1 0-10 % Neutrophils # (Auto) 3.7 1.8-7.8 10^3/uL Lymphocytes # (Auto) 2.7 1.0-4.0 10^3/uL Monocytes # (Auto) 0.5 0.0-1.0 10^3/uL Eosinophils # (Auto) 0.1 0.0-0.3 10^3/uL Basophils # (Auto) 0.1 0.0-0.1 10^3/uL Immature Granulocyte # (Auto) 0.0 0.0-0.1 10^3/uL Sodium Level 137 135-145 MMOL/L Potassium Level 3.5 L 3.6-5.0 MMOL/L Chloride Level 106 98-107 MMOL/L Carbon Dioxide Level 21 21-32 MMOL/L Anion Gap 10 5-14 MMOL/L Blood Urea Nitrogen 8 7-18 MG/DL Creatinine 0.80 0.60-1.30 MG/DL Estimat Glomerular Filtration Rate 90 BUN/Creatinine Ratio 10 Glucose Level 230 H 70-105 MG/DL Calcium Level 8.8 8.5-10.1 MG/DL Corrected Calcium 9.0 8.5-10.1 MG/DL Total Bilirubin 0.3 0.1-1.0 MG/DL Aspartate Amino Transf (AST/SGOT) 15 5-34 U/L Alanine Aminotransferase (ALT/SGPT) 14 0-55 U/L Alkaline Phosphatase 72 40-136 U/L Total Protein 6.9 6.4-8.2 GM/DL Albumin 3.7 3.2-4.5 GM/DL Lipase 22 8-78 U/L (ELSY,NOEL K DO) Medications Given in ED Current Medications Medications Dose Ordered Sig/Hunter Route Start Time Stop Time Status Last Admin Dose Admin Acetaminophen/ Hydrocodone Bitart 1 ea ONCE ONCE PO 07/22/21 21:30 07/22/21 21:31 DC 07/22/21 22:05 1 EA Ketorolac Tromethamine 30 mg ONCE ONCE IM 07/22/21 23:00 07/22/21 23:01 DC 07/22/21 23:05 30 MG (ELSY,NOEL K DO) Vital Signs/I&O 07/22/21 07/22/21 20:40 23:22 Temp 36.0 36.0 Pulse 80 65 Resp 18 16 B/P (MAP) 154/86 (108) 152/92 Pulse Ox 96 95 O2 Delivery Room Air Room Air (NOEL CHIN DO) Vital Signs/I&O Capillary Refill : (AGUILAR REAL) Departure Communication (PCP) Urinalysis did show yeast. No strong evidence of infection. +3 glucose. Blood sugar 230. Does not appear in DKA. Normal white blood count, kidney function liver function. She has is pain on her left flank. Sharp and stabbing. Denies of any specific injury. 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 After urinalysis patient started having pain in her lower abdomen. Secondary to the pain location on the left side CT scan to rule out any nephrolithiasis, ureterolithiasis, potential other etiology. CT abdomen pelvis shows slight gastroduodenal dilation which is again demonstrated but less pronounced from prior. 2 small nonobstructing right renal stones without evidence of left-sided calcification or obstructive uropathy. Probable fibroid uterus. She states she still does have her menstrual cycles. No severe pain with menstrual cycles or heavier bleeding. Gynecology outpatient follow-up if this does occur. Pain is likely more muscular skeletal. She has no bowel or urine cons, saddle paresthesia, lower extremity weakness or sensory changes suggesting radiculopathy type pain. will discharge with few days worth of pain medication. Was given IM pain dose here in the ED with improvement as well as oral. Outpatient follow-up with PCP in 2 to 3 days for reevaluation. Lidocaine patch, ice or heat may be other alternative treatment options.. If any worsening symptoms return back to ED for further evaluation (AGUILAR REAL) Impression Primary Impression: Back pain Disposition: 01 HOME, SELF-CARE Condition: Stable Departure-Patient Inst. Decision time for Depature: 22:57 (AGUILAR REAL) Referrals: [facility] (PCP) Primary Care Physician JESUS ALVARADO (Family) Primary Care Physician Patient Instructions: Low Back Pain ED Scripts Fluconazole (Diflucan) 150 Mg Tablet 150 MG PO DAILY, #1 TAB Prov: AGUILAR REAL 07/23/21 Hydrocodone/Acetaminophen (Hydrocodone-Acetamin 5-325 mg) 5 Mg-325 Mg Tablet 1 TAB PO Q4H PRN for PAIN-MODERATE (5-7), #6 TAB Prov: AGUILAR REAL 07/22/21 Cyclobenzaprine HCl (Cyclobenzaprine HCl) 10 Mg Tablet 10 MG PO TID, #16 TAB Prov: AGUILAR REAL 07/22/21 Naproxen (Naproxen) 500 Mg Tablet.dr 500 MG PO BID for 10 Days, #20 TAB Prov: AGUILAR REAL 07/22/21 ATTENDING PHYSICIAN NOTE: I WAS PHYSICALLY PRESENT ER PHYSICIAN, BUT I WAS NOT INVOLVED IN ANY DECISION MAKING OR ANY CARE OF THIS PATIENT. (NOEL CHIN DO) AGUILAR REAL July 22, 2021 20:58 NOEL CHIN DO July 23, 2021 01:05
[2021-07-22 21:09] LABS: BILIRUBIN,URINE NEGATIVE (NEGATIVE); CLARITY,URINE CLEAR; COLOR,URINE YELLOW; GLUCOSE, URINE (UA) 3+ (NEGATIVE); KETONES,URINE NEGATIVE (NEGATIVE); LEUKOCYTE ESTERASE ,URINE NEGATIVE (NEGATIVE); NITRITE,URINE NEGATIVE (NEGATIVE); PROTEIN,URINE NEGATIVE (NEGATIVE)
[2021-07-22 21:17] LABS: BACTERIA,URINE FEW /HPF; YEAST,URINE MODERATE /HPF
[2021-07-22] MEDS ORDERED: HYDROcodone/APAP 5 MG/325 MG (LORTAB) TAB PO ONE (21:30)
[2021-07-22 21:41] LABS: BASOPHILS # (AUTO) 0.1 10^3/uL (0.0-0.1); BASOPHILS % (AUTO) 1 % (0-10); EOSINOPHILS # (AUTO) 0.1 10^3/uL (0.0-0.3); EOSINOPHILS % (AUTO) 1 % (0-10); HEMATOCRIT 34 % (35-52); HEMOGLOBIN 11.3 g/dL (11.5-16.0); LYMPHOCYTES # (AUTO) 2.7 10^3/uL (1.0-4.0); LYMPHOCYTES % (AUTO) 38 % (12-44); MEAN CORPUSCULAR HEMOGLOBIN 30 pg (25-34); MEAN CORPUSCULAR HGB CONC 33 g/dL (32-36); MEAN CORPUSCULAR VOLUME 89 fL (80-99); MEAN PLATELET VOLUME 9.9 fL (9.0-12.2); MONOCYTES # (AUTO) 0.5 10^3/uL (0.0-1.0); MONOCYTES % (AUTO) 8 % (0-12); NEUTROPHILS # (AUTO) 3.7 10^3/uL (1.8-7.8); NEUTROPHILS % (AUTO) 53 % (42-75); PLATELET COUNT 339 10^3/uL (130-400); WHITE BLOOD COUNT 7.1 10^3/uL (4.3-11.0)
[2021-07-22 21:47] LABS: ALBUMIN 3.7 GM/DL (3.2-4.5); POTASSIUM 3.5 MMOL/L (3.6-5.0)
[2021-07-22 21:48] LABS: CALCIUM 8.8 MG/DL (8.5-10.1)
[2021-07-22 21:49] LABS: TOTAL PROTEIN 6.9 GM/DL (6.4-8.2)
[2021-07-22 21:51] LABS: BILIRUBIN,TOTAL 0.3 MG/DL (0.1-1.0)
[2021-07-22 21:53] LABS: CREATININE SERUM 0.8 MG/DL (0.60-1.30)
--- NOTE | 2021-07-22 22:40 | Diagnostic Imaging Report ---
PROCEDURE: CT urinary tract, rule out kidney stone. TECHNIQUE: Multiple contiguous axial images were obtained through the abdomen and pelvis without the use of intravenous contrast. Auto Exposure Controls were utilized during the CT exam to meet ALARA standards for radiation dose reduction. INDICATION: 51-year-old female, left flank pain, urinary tract infection. CORRELATION STUDY: 12/05/2020. FINDINGS: LOWER THORAX: Clear. Small hiatal hernia. LIVER: Unremarkable on unenhanced imaging. GALLBLADDER: Cholecystectomy. SPLEEN: Unremarkable. PANCREAS: Appears somewhat short and truncated, otherwise unremarkable. ADRENAL GLANDS: Unremarkable. KIDNEYS: Too small nonobstructing stones in inferior pole of right kidney. No definitive ureteric calcification. ABDOMINAL AORTA: Unremarkable, nonaneurysmal. GASTROINTESTINAL TRACT: Stomach is mildly distended with retained gastric contents. There is again noted some distention of the stomach and proximal duodenum but less pronounced from prior. A few prominent fluid-filled loops of small bowel without transition or evidence for suggestion of underlying obstruction. There is significant redundancy throughout the gastrointestinal tract. Definitive inflammation is not demonstrated. The appendix cannot be discretely localized. No abdominal ascites and/or free air. URINARY BLADDER: Decompressed. REPRODUCTIVE: Uterus is slightly prominent and lobulated. Fibroids not excluded. OSSEOUS STRUCTURES: No acute abnormality. OTHER: None. IMPRESSION: 1. Negative for acute abnormality of the abdomen or pelvis. 2. Slight gastroduodenal dilatation is again demonstrated but appears less pronounced from prior. 3. Two small nonobstructing right renal stones. No evidence for left sided calcification or obstructive uropathy. 4. Probable fibroid uterus. Dictated by: Dictated on workstation # [id number]
[2021-07-22] MEDS ORDERED: CYCL10TA25 PO (22:59)
[2021-07-22] MEDS ORDERED: NAPR500T8 PO (22:59)
[2021-07-22] MEDS ORDERED: ACHD5005 PO (22:59)
[2021-07-22] MEDS ORDERED: KETOROLAC 60 MG/2 ML VIAL IM ONE (23:00)
[2021-07-22] MEDS ORDERED: ORPHENADRINE 60 MG/2 ML (NORFLEX) AMP (ED ONLY) IM ONE (23:00)
[2021-07-22 23:22] VITALS: BP 152/92
[2021-07-23] MEDS ORDERED: FLUC150T PO (12:16)
== END 2021-07-22 23:22 | disposition home or self-care (01) ==
LOC: EDUNIT# 20:32 → ER 20:33
DX: M54.50 Low back pain, unspecified (principal); E11.65 Type 2 diabetes mellitus with hyperglycemia; Z79.4 Long term (current) use of insulin
CPT/HCPCS: 36415; 74176; 80053; 81000; 83690; 85025; 87088

== ENCOUNTER 2021-09-29 21:54 | Emergency (ER) | payer OTHER ==
[~2021-09-29] VITALS: Ht 160 cm; Wt 74.8 kg
[~2021-09-29 21:54] MED LIST changes: +CYCL10TA25 PO; +NAPR500T8 PO
[2021-09-29 22:00] VITALS: BP 162/100
--- NOTE | 2021-09-29 22:23 | ED Upper Extremity ---
General Chief Complaint: Upper Extremity Stated Complaint: R THUMB PAD AREA PAIN/SWOLLEN Nursing Triage Note: C/O RIGHT THUMB/HAND PAIN/SWELLING/INTERMITTANT NUMBNESS X1 WEEK. DENIES INJURY. Source: patient Exam Limitations: no limitations History of Present Illness Date Seen by Provider: Sep 29, 2021 Time Seen by Provider: 22:10 Initial Comments Patient is a 51-year-old female who presents to the emergency department today with a chief complaint of right thumb and wrist pain. Patient states that she has had discomfort in this area for at least a year and it normally comes and goes however over the last week it has been persistent. She has been taking tyjc-puh-jbzqlva Tylenol without any relief of symptoms. She has not been applying any ice packs. She states that when the pain is at its worst it causes pain into the wrist and then into the mid forearm with "numbness". 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 Denies any trauma. No elbow pain or proximal upper extremity pain. She is right-hand dominant. She is a diabetic, she does not check her blood sugars. No fevers, chills, rashes. All other review of systems reviewed and negative except as stated. Onset: other (Chronic) Severity: moderate Pain/Injury Location: right thumb Method of Injury: unknown Modifying Factors: Worse With Movement Allergies and Home Medications Allergies Coded Allergies: Penicillins (Verified Allergy, Mild, RASH, 06/12/18) metoclopramide (Verified Allergy, Mild, RED RASH/GI UPSET, 06/12/18) Patient Home Medication List Home Medication List Reviewed: Yes Albuterol Sulfate (Proair Hfa) 1 Puff Puff, 2 PUFF IH Q6H PRN for SHORTNESS OF BREATH, (Reported) Entered as Reported by: LAUREN PAYNE on 12/02/162230 Cefdinir (Cefdinir) 300 Mg Capsule, 300 MG PO BID Prescribed by: ELKE PRICE on 09/04/19 2248 Cefuroxime Axetil (Cefuroxime) 500 Mg Tablet, 500 MG PO BID Prescribed by: LISS BAGLEY on 04/13/19 221 Cephalexin (Keflex) 500 Mg Capsule, 500 MG PO BID Prescribed by: ELKE PRICE on 03/22/192056 Cephalexin (Cephalexin) 500 Mg Capsule, 500 MG PO TID Prescribed by: ELKE PRICE on 09/16/19 192 Cetirizine HCl (Zyrtec) 10 Mg Capsule, 10 MG PO DAILY, (Reported) Entered as Reported by: FLAVIA DUNHAM on 04/04/16 2340 Clindamycin HCl (Clindamycin HCl) 300 Mg Capsule, 300 MG PO QID Prescribed by: NOEL CHIN on 12/18/19 0002 Cyclobenzaprine HCl (Cyclobenzaprine HCl) 10 Mg Tablet, 10 MG PO TID Prescribed by: ASIF LEON on 07/22/212258 Fluconazole (Diflucan) 150 Mg Tablet, 150 MG PO DAILY Prescribed by: ASIF LEON on 07/23/21 1216 Guaifenesin (Mucinex) 1,200 Mg Tab.er.12h, 1,200 MG PO DAILY, (Reported) Entered as Reported by: ANDREA BARBER on 06/12/18 0953 Hydrocodone Bit/Acetaminophen (Lortab 5 Mg Tablet) 1 Tab Tab, 1 TAB PO Q6H PRN for PAIN-MODERATE Prescribed by: VALERIA CONTRERAS on 06/17/18 1312 Hydrocodone/Acetaminophen (Hydrocodone-Acetamin 5-325 mg) 5 Mg-325 Mg Tablet, 1 TAB PO Q4H PRN for PAIN-MODERATE (5-7) Prescribed by: ASIF LEON on 07/22/212258 Hyoscyamine Sulfate (Levsin-Sl) 0.125 Mg Tab.subl, 1-2 TAB SL Q4H Prescribed by: NOEL CHIN on 04/06/19 0055 Insulin Glargine,Hum.rec.anlog (Lantus Solostar) 100 Unit/1 Ml Insuln.pen, 50 UNITS SC HS, (Reported) Entered as Reported by: FLAVIA DUNHAM on 07/13/152140 Metformin HCl (Metformin HCl) 1,000 Mg Tablet, 1,000 MG PO BID, (Reported) Entered as Reported by: FLAVIA DUNHAM on 07/13/152140 Naproxen (Naproxen) 500 Mg Tablet.dr, 500 MG PO BID Prescribed by: ASIF LEON on 07/22/212258 Nitrofurantoin Monohyd/M-Cryst (Macrobid 100 mg Capsule) 100 Mg Capsule, 100 MG PO BID Prescribed by: NOEL CHIN on 10/04/182342 Ondansetron (Ondansetron Odt) 4 Mg Tab.rapdis, 4 MG PO Q4H Prescribed by: NOEL CHIN on 04/06/1954 Ondansetron (Ondansetron Odt) 4 Mg Tab.rapdis, 4 MG PO Q6H PRN for N AUSEA/VOMITING-1ST LINE Prescribed by: DIANN GALVEZ on 12/05/20 1558 Ondansetron HCl (Zofran) 4 Mg Tab, 4 MG PO Q4H Prescribed by: AIDEE SOUZA on 05/26/182202 Pantoprazole Sodium (Protonix) 40 Mg Tablet.dr, 40 MG PO DAILY Prescribed by: NOEL CHIN on 10/04/182342 Polyethylene Glycol 3350 (Miralax) 17 Gm Powd.pack, 17 GM PO DAILY Prescribed by: NOEL CHIN on 04/06/1955 Sucralfate (Carafate) 1 Gm/10 Ml Oral.susp, 1 GM PO QID Prescribed by: NOEL CHIN on 10/04/182342 Sucralfate (Carafate) 1 Gm Tablet, 1 GM PO QID Prescribed by: NOEL CHIN on 12/27/191955 Review of Systems Constitutional: see HPI EENTM: no symptoms reported Respiratory: no symptoms reported Cardiovascular: no symptoms reported Gastrointestinal: no symptoms reported Musculoskeletal: joint pain (Right thumb) Skin: no symptoms reported All Other Systems Reviewed Negative Unless Noted: Yes Past Jnpesyi-Pszrwu-Gfzpeq Hx Patient Social History Tobacco Use?: No Substance use?: No Alcohol Use?: No Pt feels they are or have been: No Immunizations Up To Date Tetanus Booster (TDap): Unknown PED Vaccines UTD: No First/Initial COVID19 Vaccinat: 03/19/20 Second COVID19 Vaccination Franco: 04/08/20 Seasonal Allergies Seasonal Allergies: Yes Past Medical History Surgery/Hospitalization HX: PMH;DM, GERD, HTN SURGERY;HITAL HERNIA SURGERY, GALLBLADDER, BILATERAL KNEES, AND EYE SURGERY. Surgeries: Yes (HIATAL HERNIA REPAIR 2016; HARLEY 06/2018; BILAT KNEE SCOPES; EYE SURGERY ) Abdominal, Eye Surgery, Gallbladder, Orthopedic Respiratory: Yes Asthma Currently Using CPAP: No Currently Using BIPAP: No Cardiac: Yes High Cholesterol Neurological: No Reproductive Disorders: Yes Female Reproductive Disorders: Menstrual Problems Sexually Transmitted Disease: No HIV/AIDS: No Genitourinary: Yes Bladder Infection, UTI-Chronic Gastrointestinal: Yes (ESOPHAGEAL NARROWING; HIATAL HERNIA REPAIR 2016; CHOLECY STECTOMY 06/2018) Gastroesophageal Reflux, Hiatal Hernia, Ulcer, Gall Bladder Disease Musculoskeletal: Yes Arthritis Endocrine: Yes Diabetes, Insulin dep HEENT: Yes (GLASSES; EYE SURGERY ;EXTENSIVE DENTAL DECAY) Loss of Vision: Bilateral Hearing Impairment: Denies Cancer: No Psychosocial: No Integumentary: No Blood Disorders: No Adverse Reaction/Blood Tranf: No (N/A) Family Medical History Arthritis 19 FATHER 19 MOTHER G8 SISTER Asthma 19 FATHER 19 MOTHER G8 SISTER Cataracts 19 MOTHER Diabetes mellitus 19 FATHER 19 MOTHER G8 SISTER FH: leukemia 19 FATHER Myocardial infarction 19 MOTHER Parkinson's disease 19 FATHER Thyroid disease 19 MOTHER Asthma, CAD Over 55 Years Old, Diabetes PSH: -EYE SURGERY INFANT -BILATERAL KNEE SCOPES -HIATAL HERNIA REPAIR 07/2016 -LAP HARLEY 06/2018 -LAST COLONOSCOPY 01/08/19 Physical Exam Vital Signs Vital Signs - First Documented 09/29/21 22:00 Temp 36.7 Pulse 66 Resp 16 B/P (MAP) 162/100 (120) Pulse Ox 99 O2 Delivery Room Air Capillary Refill : Less Than 3 Seconds Height, Weight, BMI Height: 5'3.00" Weight: 178lbs. 0.0oz. 80.242410pv; 29.00 BMI Method:Stated General Appearance: WD/WN, no apparent distress HEENT: PERRL/EOMI Cardiovascular: regular rate, rhythm Respiratory: lungs clear, normal breath sounds, no respiratory distress, no accessory muscle use Shoulder: normal inspection, normal ROM Elbow/Forearm: normal inspection, non-tender, no evidence of injury, normal ROM, Right Wrist: Yes normal inspection, Yes non-tender, Yes no evidence of injury, Yes normal ROM Hand: normal inspection, swelling (Patient has minimal swelling over the thenar eminence. No overlying erythema, wounds or fluctuance. She has good range of motion of the thumb with normal strength and sensation. No crepitance is felt at the MCP joint. No snuffbox tenderness at the wrist. No injuries or unusual findings of the nailbed of the thumb.) Neurologic/Tendon: normal sensation, normal motor functions, normal tendon functions Neurologic/Psychiatric: alert, normal mood/affect, oriented x 3 Skin: normal color, warm/dry Progress/Results/Core Measures Results/Orders Vital Signs/I&O 09/29/21 22:00 Temp 36.7 Pulse 66 Resp 16 B/P (MAP) 162/100 (120) Pulse Ox 99 O2 Delivery Room Air Blood Pressure Mean: 120 Departure Impression Primary Impression: Pain of right thumb Disposition: HOME, SELF-CARE Condition: Stable Departure-Patient Inst. Decision time for Depature: 22:21 Referrals: [facility] (PCP) Primary Care Physician JESUS KNIGHT (Family) Primary Care Physician Patient Instructions: Reactive Arthritis Add. Discharge Instructions: Switch from Tylenol to idll-ptl-nbuvzyn Aleve/naproxen. Take 2 tablets with food twice daily for pain. Apply ice packs to the sore area of your thumb. Please call Dr. Knight's office on Saturday for a follow-up appointment. Return to the emergency department if the thumb becomes more swollen, red, warm or you develop streaking from the thumb up the arm with fever. you should check your blood sugars at least twice a day. Copy Copies To 1: RIAZ REAL KATHRYN M MD Sep 29, 2021 22:23
[2021-09-29] MEDS ORDERED: NAPROXEN 250 MG (NAPROSYN) TABLET PO ONE (22:30)
== END 2021-09-29 22:33 | disposition home or self-care (01) ==
LOC: EDUNIT# 21:54 → ER 21:57
DX: M79.644 Pain in right finger(s) (principal); E11.9 Type 2 diabetes mellitus without complications; Z79.4 Long term (current) use of insulin
CPT/HCPCS: 99283

== ENCOUNTER → 2021-11-15 | Outpatient (CLI) | payer OTHER ==
[~2021-11-15] VITALS: Ht 160 cm; Wt 85.9 kg
[~2021-11-15] MED LIST changes: +LIDOCAINE 1% INJ 50 ML (XYLOCAINE) VIAL IJ ONE; +LIDOCAINE 1% INJ 50 ML (XYLOCAINE) VIAL ONE
--- NOTE | 2021-11-15 13:18 | Diagnostic Imaging Report ---
Indication: Left breast mass. Patient presents for ultrasound-guided biopsy. Patient brought to the sonographic suite placed on table supine position. Ultrasound imaging of the left breast was performed to evaluate appropriate entry site. Left breast was then prepped and draped in usual sterile fashion. Small amount 1% lidocaine was utilized for local anesthesia. A total of 4 core biopsies were obtained of the hypoechoic solid nodule 11:00 location left breast, 8 cm from the nipple utilizing a 14-gauge achieve needle. A marker clip was deployed. Hemostasis was obtained using manual compression. Patient tolerated the procedure well. IMPRESSION: Successful ultrasound-guided core biopsy of left breast mass 11:00 location, 8 cm from the nipple. Pathology results are currently pending. Dictated by: Dictated on workstation # [id number]
--- NOTE | 2021-11-15 13:26 | Diagnostic Imaging Report ---
INDICATION: Left breast mass. Patient presents for ultrasound-guided core biopsy. Patient brought to the sonographic suite placed on table in supine position. Ultrasound imaging of the left breast was performed to evaluate appropriate entry site. Total of 4 core biopsies were obtained of the hyperechoic nodule at the 9 o'clock location left breast utilizing a 14-gauge Achieve needle. A marker clip was deployed. Hemostasis was obtained using manual compression. Patient tolerated the procedure well and was sent for post procedure mammogram in satisfactory condition. IMPRESSION: Successful ultrasound guided core biopsy of the solid mass at the 9 o'clock location of the left breast, 4 cm from the nipple. Pathology results are currently pending. Dictated by: Dictated on workstation # [id number]
--- NOTE | 2021-11-15 14:56 | Diagnostic Imaging Report ---
INDICATION: Left breast nodules, status post biopsy. Unilateral left 2-D CC and ML mammography was performed after patient underwent ultrasound guided left breast biopsy. There is a marker clip in the medial left breast at anterior depth. There is also a marker clip in the superior left breast. IMPRESSION: Marker clip placement, after which the patient underwent ultrasound-guided core biopsy of lesions at the 9:00 and 11:00 location left breast. Dictated by: Dictated on workstation # [id number]
== END ==
LOC: RAD 08:45
PROVIDERS: ATTEND Nurse Practitioner Family
DX: N63.22 Unspecified lump in the left breast, upper inner quadrant (principal); N63.25 Unspecified lump in the left breast, overlapping quadrants
CPT/HCPCS: 19083; 19084; 77065; G0279

== ENCOUNTER 2021-11-21 23:19 | Emergency (ER) | payer OTHER ==
[~2021-11-21] VITALS: Ht 160 cm; Wt 89.3 kg
[~2021-11-21 23:19] MED LIST changes: -LIDOCAINE 1% INJ 50 ML (XYLOCAINE) VIAL IJ ONE; -LIDOCAINE 1% INJ 50 ML (XYLOCAINE) VIAL ONE
[2021-11-21 23:30] VITALS: BP 161/95
[2021-11-21] MEDS ORDERED: OMEP40CA6 (23:36)
[2021-11-21] MEDS ORDERED: RX-NAPROXEN (NAPROSYN) 250 MG TAB PPK#4 PO STA (23:56)
[2021-11-21] MEDS ORDERED: NAPR500T8 PO (23:59)
--- NOTE | 2021-11-21 23:59 | ED General ---
General Chief Complaint: Post OP Complications/Pain Stated Complaint: POST OP BREAST BIOPSY PAIN,POSS INFECTION Nursing Triage Note: left breast biopsy 11/15/21. c/o continued bruising, redness to puncture site since biopsy. Source of Information: Patient History of Present Illness Date Seen by Provider: Nov 21, 2021 Time Seen by Provider: 23:41 Initial Comments PT ARRIVES VIA POV FROM HOME SHE HAD AN ULTRASOUND-GUIDED LEFT BREAST BIOPSY ON 11/15/21 BY RADIOLOGIST PT STATES SHE DEVELOPED A LARGE HEMATOMA DURING THE PROCEDURE PT HAS NOT FOLLOWED UP WITH ANYONE SINCE THE PROCEDURE PATHOLOGY RESULTS--BENIGN STATES SHE HAS HAD CONTINUED BRUISING AND PAIN TO THE AREA NO DRAINAGE NO FEVER NO STREAKS NO INCREASED SWELLING TO BREAST PT IS NOT ON ASPIRIN OR BLOOD THINNERS PT IS DIABETIC PT HAS NOT TAKEN ANYTHING FOR PAIN SYMPTOMS NO DIFFERENT TONIGHT HAS NOT SOUGHT CARE UNTIL TONIGHT PCP: PRUDENCIO CUELLO Allergies and Home Medications Allergies Coded Allergies: Penicillins (Verified Allergy, Mild, RASH, 06/12/18) metoclopramide (Verified Allergy, Mild, RED RASH/GI UPSET, 06/12/18) Patient Home Medication List Home Medication List Reviewed: Yes Albuterol Sulfate (Proair Hfa) 1 Puff Puff, 2 PUFF IH Q6H PRN for SHORTNESS OF BREATH, (Reported) Entered as Reported by: LAUREN PAYNE on 12/02/16 2231 Cetirizine HCl (Zyrtec) 10 Mg Capsule, 10 MG PO DAILY, (Reported) Entered as Reported by: FLAVIA DUNHAM on 04/04/16 2340 Guaifenesin (Mucinex) 1,200 Mg Tab.er.12h, 1,200 MG PO DAILY, (Reported) Entered as Reported by: ANDREA BARBER on 06/12/18 0953 Hydrocodone/Acetaminophen (Hydrocodone-Acetamin 5-325 mg) 5 Mg-325 Mg Tablet, 1 TAB PO Q4H PRN for PAIN-MODERATE (5-7) Prescribed by: ASIF LEON on 07/22/21 2259 Insulin Glargine,Hum.rec.anlog (Lantus Solostar) 100 Unit/1 Ml Insuln.pen, 50 UNITS SC HS, (Reported) Entered as Reported by: FLAVIA DUNHAM on 5/4/16 2141 Metformin HCl (Metformin HCl) 1,000 Mg Tablet, 1,000 MG PO BID, (Reported) Entered as Reported by: FLAVIA DUNHAM on 07/13/152140 Naproxen (Naproxen) 500 Mg Tablet., 500 MG PO BID Prescribed by: ASIF LEON on 07/22/21 225 Naproxen (Naproxen) 500 Mg Tablet., 500 MG PO BID Prescribed by: NOEL CHIN on 11/21/21 235 Omeprazole (Omeprazole) 40 Mg Capsule., (Reported) Entered as Reported by: LAUREN PAYNE on 11/21/21 2336 Last Action: New Order Ondansetron HCl (Zofran) 4 Mg Tab, 4 MG PO Q4H Prescribed by: AIDEE SOUZA on 05/26/182202 Polyethylene Glycol 3350 (Miralax) 17 Gm Powd.pack, 17 GM PO DAILY Prescribed by: NOEL CHIN on 04/06/19 0056 Sucralfate (Carafate) 1 Gm Tablet, 1 GM PO QID Prescribed by: NOEL CHIN on 12/27/19 195 Discontinued Medications Cefdinir (Cefdinir) 300 Mg Capsule, 300 MG PO BID Discontinued Reason: No Longer Taking Prescribed by: ELKE PRICE on 09/04/19 2248 Last Action: Discontinued Cefuroxime Axetil (Cefuroxime) 500 Mg Tablet, 500 MG PO BID Discontinued Reason: No Longer Taking Prescribed by: LISS BAGLEY on 04/13/19 2211 Last Action: Discontinued Cephalexin (Keflex) 500 Mg Capsule, 500 MG PO BID Discontinued Reason: No Longer Taking Prescribed by: ELKE PRICE on 03/22/19 205 Last Action: Discontinued Cephalexin (Cephalexin) 500 Mg Capsule, 500 MG PO TID Discontinued Reason: No Longer Taking Prescribed by: ELKE PRICE on 09/16/19 192 Last Action: Discontinued Clindamycin HCl (Clindamycin HCl) 300 Mg Capsule, 300 MG PO QID Discontinued Reason: No Longer Taking Prescribed by: NOEL CHIN on 12/18/19 0002 Last Action: Discontinued Cyclobenzaprine HCl (Cyclobenzaprine HCl) 10 Mg Tablet, 10 MG PO TID Discontinued Reason: No Longer Taking Prescribed by: ASIF LEON on 07/22/21 6066 Last Action: Discontinued Fluconazole (Diflucan) 150 Mg Tablet, 150 MG PO DAILY Discontinued Reason: No Longer Taking Prescribed by: ASIF LEON on 07/23/21 1216 Last Action: Discontinued Hydrocodone Bit/Acetaminophen (Lortab 5 Mg Tablet) 1 Tab Tab, 1 TAB PO Q6H PRN for PAIN-MODERATE Discontinued Reason: No Longer Taking Prescribed by: VALERIA CONTRERAS on 06/17/18 1312 Last Action: Discontinued Hyoscyamine Sulfate (Levsin-Sl) 0.125 Mg Tab.subl, 1-2 TAB SL Q4H Discontinued Reason: No Longer Taking Prescribed by: NOEL CHIN on 04/06/1954 Last Action: Discontinued Nitrofurantoin Monohyd/M-Cryst (Macrobid 100 mg Capsule) 100 Mg Capsule, 100 MG PO BID Discontinued Reason: No Longer Taking Prescribed by: NOEL CHIN on 10/04/182342 Last Action: Discontinued Ondansetron (Ondansetron Odt) 4 Mg Tab.rapdis, 4 MG PO Q4H Discontinued Reason: No Longer Taking Prescribed by: NOEL CHIN on 04/06/1954 Last Action: Discontinued Ondansetron (Ondansetron Odt) 4 Mg Tab.rapdis, 4 MG PO Q6H PRN for NAUSEA/VOMITING-1ST LINE Discontinued Reason: No Longer Taking Prescribed by: DIANN GALVEZ on 12/05/20 1558 Last Action: Discontinued Pantoprazole Sodium (Protonix) 40 Mg Tablet.dr, 40 MG PO DAILY Discontinued Reason: No Longer Taking Prescribed by: NOEL CHIN on 10/04/182342 Last Action: Discontinued Sucralfate (Carafate) 1 Gm/10 Ml Oral.susp, 1 GM PO QID Discontinued Reason: No Longer Taking Prescribed by: NOEL CHIN on 10/04/182342 Last Action: Discontinued Review of Systems Review of Systems Constitutional: no symptoms reported Respiratory: no symptoms reported Cardiovascular: no symptoms reported Skin: see HPI Psychiatric/Neurological: No Symptoms Reported Hematologic/Lymphatic: No Symptoms Reported Past Puxzzle-Vlcutz-Yzrzfv Hx Patient Social History Tobacco Use?: No Substance use?: No Alcohol Use?: No Immunizations Up To Date Tetanus Booster (TDap): Unknown PED Vaccines UTD: No First/Initial COVID19 Vaccinat: 03/19/20 Second COVID19 Vaccination Franco: 04/08/20 Third COVID19 Vaccination Date: 01/05/21 Seasonal Allergies Seasonal Allergies: Yes Past Medical History Surgery/Hospitalization HX: PMH;DM, GERD, HTN SURGERY;HITAL HERNIA SURGERY, GALLBLADDER, BILATERAL KNEES, AND EYE SURGERY. LEFT BREAST BIOPSY 11/15/21-BENIGN Surgeries: Yes (HIATAL HERNIA REPAIR 2016; [facility] 06/2018; BILAT KNEE SCOPES; EYE SURGERY ) Abdominal, Breast, Eye Surgery, Gallbladder, Orthopedic Respiratory: Yes Asthma Currently Using CPAP: No Currently Using BIPAP: No Cardiac: Yes High Cholesterol Neurological: No Reproductive Disorders: Yes Female Reproductive Disorders: Menstrual Problems Sexually Transmitted Disease: No HIV/AIDS: No Genitourinary: Yes Bladder Infection, UTI-Chronic Gastrointestinal: Yes (ESOPHAGEAL NARROWING; HIATAL HERNIA REPAIR 2016; CHOLECYSTECTOMY 06/2018) Gastroesophageal Reflux, Hiatal Hernia, Ulcer, Gall Bladder Disease Musculoskeletal: Yes Arthritis Endocrine: Yes Diabetes, Insulin dep HEENT: Yes (GLASSES; EYE SURGERY INFANT;EXTENSIVE DENTAL DECAY) Loss of Vision: Bilateral Hearing Impairment: Denies Cancer: No Psychosocial: No Integumentary: No Blood Disorders: No Adverse Reaction/Blood Tranf: No (N/A) Family Medical History Arthritis 19 FATHER 19 MOTHER G8 SISTER Asthma 19 FATHER 19 MOTHER G8 SISTER Cataracts 19 MOTHER Diabetes mellitus 19 FATHER 19 MOTHER G8 SISTER FH: leukemia 19 FATHER Myocardial infarction 19 MOTHER Parkinson's disease 19 FATHER Thyroid disease 19 MOTHER Asthma, CAD Over 55 Years Old, Diabetes PSH: -EYE SURGERY -BILATERAL KNEE SCOPES -HIATAL HERNIA REPAIR 07/2016 -LAP [facility] 06/2018 -LAST COLONOSCOPY 01/08/19 Physical Exam Vital Signs Vital Signs - First Documented 11/21/21 23:30 Temp 36.5 Pulse 68 Resp 16 B/P (MAP) 161/95 (117) Pulse Ox 99 O2 Delivery Room Air Capillary Refill : Less Than 3 Seconds Height, Weight, BMI Height: 5'3.00" Weight: 178lbs. 0.0oz. 80.786665br; 34.00 BMI Method:Stated General Appearance: No Apparent Distress, WD/WN Respiratory: Normal Breath Sounds Cardiovascular: Regular Rate, Rhythm Neurologic/Psychiatric: Alert, Oriented x3 Skin: Warm/Dry, Other (LEFT BREAST--SMALL SCABBED WOUND TO MEDIAL ASPECT OF BREAST. HAS OLD APPEARING ECCHYMOSIS TO ENTIRE BREAST. PT HAS APPROXIMATELY 5 CM DIAMETER FIRM SUB Q AREA UNDER THE INCISION SITE. THERE IS NOT WARMTH, NO REDNESS, NO DRAINAGE. NO STREAKS. AREA IS TENDER. NO SIGNS OF INFECTION AT THIS TIME) Progress/Results/Core Measures Suspected Sepsis SIRS Temperature: Pulse: 68 Respiratory Rate: 16 Blood Pressure 161 /95 Mean: 117 Results/Orders My Orders Orders - NOEL CHIN DO Rx-Naproxen (Rx-Naprosyn) (11/21/21 23:56) Vital Signs/I&O 11/21/21 23:30 Temp 36.5 Pulse 68 Resp 16 B/P (MAP) 161/95 (117) Pulse Ox 99 O2 Delivery Room Air Capillary Refill : Less Than 3 Seconds Blood Pressure Mean: 117 Progress Note : Progress Note INSTRUCTED ON IMPORTANCE OF FOLLOW UP WITH [facility] FOR RECHECK, AND RETURN PRECAUTIONS DISCUSSED Departure Impression Primary Impression: Status post left breast biopsy Additional Impression: LEFT BREAST POST OP HEMATOMA Disposition: 01 HOME, SELF-CARE Condition: Stable Departure-Patient Inst. Decision time for Depature: 23:58 Referrals: [facility] (PCP) Primary Care Physician JESUS ALVARADO (Family) Primary Care Physician Patient Instructions: Breast Biopsy (DC), HEMATOMA Add. Discharge Instructions: MOIST HEAT TO THE AREA AT 20 MINUTE INTERVALS FOLLOW UP WITH [facility] IN 2-3 DAYS FOR FURTHER CARE Scripts Naproxen (Naproxen) 500 Mg Tablet. 500 MG PO BID, #20 TAB Prov: NOEL CHIN DO 11/21/21 NOEL CHIN DO Nov 21, 2021 23:59
== END 2021-11-22 | disposition home or self-care (01) ==
LOC: EDUNIT# 23:19 → ER 23:22
DX: L76.32 Postprocedural hematoma of skin and subcutaneous tissue following other procedure (principal); E11.9 Type 2 diabetes mellitus without complications; Z98.890 Other specified postprocedural states; Z79.4 Long term (current) use of insulin
CPT/HCPCS: 99281

== ENCOUNTER 2021-12-08 21:15 | Emergency (ER) | payer OTHER ==
[~2021-12-08 21:15] MED LIST changes: +OMEP40CA6
[2021-12-08 21:57] LABS: BILIRUBIN,URINE NEGATIVE (NEGATIVE); CLARITY,URINE CLEAR; COLOR,URINE YELLOW; GLUCOSE, URINE (UA) 3+ (NEGATIVE); KETONES,URINE NEGATIVE (NEGATIVE); LEUKOCYTE ESTERASE ,URINE TRACE (NEGATIVE); NITRITE,URINE NEGATIVE (NEGATIVE); PROTEIN,URINE NEGATIVE (NEGATIVE)
[2021-12-08 22:07] LABS: BACTERIA,URINE TRACE /HPF; RBC,URINE RARE /HPF; SQUAMOUS EPITHELIAL CELL,UR 0-2 /HPF; YEAST,URINE FEW /HPF
[2021-12-08] MEDS ORDERED: PHENAZOPYRIDINE 100 MG (PYRIDIUM) TABLET PO ONE (23:30)
[2021-12-09] MEDS ORDERED: LACTATED RINGERS 1,000 ML IV ONE (01:00)
[2021-12-09] MEDS ORDERED: ONDANSETRON 4 MG/2 ML (SDV) Z0FRAN IVP ONE (01:00)
[2021-12-09] MEDS ORDERED: HYOSCYAMINE 0.125 MG (LEVSIN) TAB SL ONE (01:00)
[2021-12-09 01:38] LABS: BASOPHILS % (AUTO) 1 % (0-10); EOSINOPHILS # (AUTO) 0.1 10^3/uL (0.0-0.3); EOSINOPHILS % (AUTO) 1 % (0-10); HEMATOCRIT 39 % (35-52); HEMOGLOBIN 12.9 g/dL (11.5-16.0); LYMPHOCYTES # (AUTO) 2.7 10^3/uL (1.0-4.0); LYMPHOCYTES % (AUTO) 42 % (12-44); MEAN CORPUSCULAR HEMOGLOBIN 30 pg (25-34); MEAN CORPUSCULAR HGB CONC 34 g/dL (32-36); MEAN CORPUSCULAR VOLUME 90 fL (80-99); MEAN PLATELET VOLUME 10.1 fL (9.0-12.2); MONOCYTES # (AUTO) 0.4 10^3/uL (0.0-1.0); MONOCYTES % (AUTO) 6 % (0-12); NEUTROPHILS # (AUTO) 3.2 10^3/uL (1.8-7.8); NEUTROPHILS % (AUTO) 50 % (42-75); PLATELET COUNT 300 10^3/uL (130-400); WHITE BLOOD COUNT 6.4 10^3/uL (4.3-11.0)
[2021-12-09 01:59] LABS: ALBUMIN 3.8 GM/DL (3.2-4.5)
[2021-12-09 02:00] LABS: POTASSIUM 3.3 MMOL/L (3.6-5.0)
[2021-12-09 02:01] LABS: CALCIUM 9.6 MG/DL (8.5-10.1)
[2021-12-09 02:02] LABS: TOTAL PROTEIN 7.3 GM/DL (6.4-8.2)
[2021-12-09 02:04] LABS: BILIRUBIN,TOTAL 0.3 MG/DL (0.1-1.0)
[2021-12-09 02:06] LABS: CREATININE SERUM 0.85 MG/DL (0.60-1.30)
[2021-12-09] MEDS ORDERED: FLUCONAZOLE 150 MG TABLET (ED ONLY) PO ONE (02:45)
[2021-12-09] MEDS ORDERED: HYOS0.1283 SL (02:49)
[2021-12-09] MEDS ORDERED: ONDA4TAB11 SL (02:49)
[2021-12-09] MEDS ORDERED: FLUC150T PO (02:49)
--- NOTE | 2021-12-09 02:49 | ED General ---
General Chief Complaint: - Reproductive Stated Complaint: UTI Nursing Triage Note: TO ED VIA POV AND AMBULATORY TO FT3 WITH C/O DX WITH UTI ON SATURDAY FROM WALK IN CLINIC. COMPLETED MACROBID AND THEN WAS GIVEN CIPRO AFTER CX. CONTINUED BURING WITH URINATION AND DISCOMFORT. Source of Information: Patient Exam Limitations: No Limitations History of Present Illness Date Seen by Provider: Dec 09, 2021 Allergies and Home Medications Allergies Coded Allergies: Penicillins (Verified Allergy, Mild, RASH, 06/12/18) metoclopramide (Verified Allergy, Mild, RED RASH/GI UPSET, 06/12/18) Patient Home Medication List Albuterol Sulfate (Proair Hfa) 1 Puff Puff, 2 PUFF IH Q6H PRN for SHORTNESS OF BREATH, (Reported) Entered as Reported by: LAUREN PAYNE on 12/02/16 223 Cetirizine HCl (Zyrtec) 10 Mg Capsule, 10 MG PO DAILY, (Reported) Entered as Reported by: FLAVIA DUNHAM on 04/04/16 2340 Guaifenesin (Mucinex) 1,200 Mg Tab.er.12h, 1,200 MG PO DAILY, (Reported) Entered as Reported by: ANDREA BARBER on 06/12/18 0953 Hydrocodone/Acetaminophen (Hydrocodone-Acetamin 5-325 mg) 5 Mg-325 Mg Tablet, 1 TAB PO Q4H PRN for PAIN-MODERATE (5-7) Prescribed by: ASIF LEON on 07/22/21 225 Insulin Glargine,Hum.rec.anlog (Lantus Solostar) 100 Unit/1 Ml Insuln.pen, 50 UNITS SC HS, (Reported) Entered as Reported by: FLAVIA DUNHAM on 07/13/152140 Metformin HCl (Metformin HCl) 1,000 Mg Tablet, 1,000 MG PO BID, (Reported) Entered as Reported by: FLAVIA DUNHAM on 07/13/152140 Naproxen (Naproxen) 500 Mg Tablet., 500 MG PO BID Prescribed by: ASIF LEON on 07/22/21 225 Naproxen (Naproxen) 500 Mg Tablet., 500 MG PO BID Prescribed by: NOEL CHIN on 11/21/21 2359 Omeprazole (Omeprazole) 40 Mg Capsule.dr (Reported) Entered as Reported by: LAUREN PAYNE on 11/21/21 2336 Ondansetron HCl (Zofran) 4 Mg Tab, 4 MG PO Q4H Prescribed by: AIDEE SOUZA on 05/26/182202 Polyethylene Glycol 3350 (Miralax) 17 Gm Powd.pack, 17 GM PO DAILY Prescribed by: NOEL CHIN on 04/06/19 005 Sucralfate (Carafate) 1 Gm Tablet, 1 GM PO QID Prescribed by: NOEL CHIN on 12/27/191955 Past Lgseoxh-Chrqvo-Cosgcs Hx Patient Social History Tobacco Use?: No Substance use?: No Alcohol Use?: No Immunizations Up To Date Tetanus Booster (TDap): Unknown PED Vaccines UTD: No First/Initial COVID19 Vaccinat: 03/19/20 Second COVID19 Vaccination Franco: 04/08/20 Third COVID19 Vaccination Date: 01/05/21 Seasonal Allergies Seasonal Allergies: Yes Past Medical History Surgery/Hospitalization HX: PMH;DM, GERD, HTN SURGERY;HITAL HERNIA SURGERY, GALLBLADDER, BILATERAL KNEES, AND EYE SURGERY. LEFT BREAST BIOPSY 11/15/21-BENIGN Surgeries: Yes (HIATAL HERNIA REPAIR 2016; [facility] 06/2018; BILAT KNEE SCOPES; EYE SURGERY ) Abdominal, Breast, Eye Surgery, Gallbladder, Orthopedic Respiratory: Yes Asthma Currently Using CPAP: No Currently Using BIPAP: No Cardiac: Yes High Cholesterol Neurological: No Reproductive Disorders: Yes Female Reproductive Disorders: Menstrual Problems Sexually Transmitted Disease: No HIV/AIDS: No Genitourinary: Yes Bladder Infection, UTI-Chronic Gastrointestinal: Yes (ESOPHAGEAL NARROWING; HIATAL HERNIA REPAIR 2016; CHOLECYSTECTOMY 06/2018) Gastroesophageal Reflux, Hiatal Hernia, Ulcer, Gall Bladder Disease Musculoskeletal: Yes Arthritis Endocrine: Yes Diabetes, Insulin dep HEENT: Yes (GLASSES; EYE SURGERY ;EXTENSIVE DENTAL DECAY) Loss of Vision: Bilateral Hearing Impairment: Denies Cancer: No Psychosocial: No Integumentary: No Blood Disorders: No Adverse Reaction/Blood Tranf: No (N/A) Family Medical History Arthritis 19 FATHER 19 MOTHER G8 SISTER Asthma 19 FATHER 19 MOTHER G8 SISTER Cataracts 19 MOTHER Diabetes mellitus 19 FATHER 19 MOTHER G8 SISTER FH: leukemia 19 FATHER Myocardial infarction 19 MOTHER Parkinson's disease 19 FATHER Thyroid disease 19 MOTHER Asthma, CAD Over 55 Years Old, Diabetes PSH: -EYE SURGERY INFANT -BILATERAL KNEE SCOPES -HIATAL HERNIA REPAIR 07/2016 -LAP [facility] 06/2018 -LAST COLONOSCOPY 01/08/19 Physical Exam Vital Signs Vital Signs - First Documented 12/08/21 21:40 Temp 36.6 Pulse 63 Resp 16 B/P (MAP) 133/82 (99) Pulse Ox 98 O2 Delivery Room Air Capillary Refill : Less Than 3 Seconds Height, Weight, BMI Height: 5'3.00" Weight: 178lbs. 0.0oz. 80.038623tr; 34.00 BMI Method:Stated Progress/Results/Core Measures Suspected Sepsis SIRS Temperature: Pulse: 63 Respiratory Rate: 16 Laboratory Tests 12/09/21 01:30: White Blood Count 6.4 Blood Pressure 133 /82 Mean: 99 Laboratory Tests 12/09/21 01:30: Creatinine 0.85, Platelet Count 300, Total Bilirubin 0.3 Results/Orders Lab Results Laboratory Tests Test 12/08/21 21:47 12/09/21 01:30 Range/Units Urine Color YELLOW Urine Clarity CLEAR Urine pH 6.0 5-9 Urine Specific [place] 1.015 L 1.016-1.022 Urine Protein NEGATIVE NEGATIVE Urine Glucose (UA) 3+ H NEGATIVE Urine Ketones NEGATIVE NEGATIVE Urine Nitrite NEGATIVE NEGATIVE Urine Bilirubin NEGATIVE NEGATIVE Urine Urobilinogen 0.2 < = 1.0 MG/DL Urine Leukocyte Esterase TRACE H NEGATIVE Urine RBC (Auto) NEGATIVE NEGATIVE Urine RBC RARE /HPF Urine WBC 5-10 H /HPF Urine Squamous Epithelial Cells 0-2 /HPF Urine Crystals NONE /LPF Urine Bacteria TRACE /HPF Urine Casts NONE /LPF Urine Mucus NEGATIVE /LPF Urine Yeast FEW H /HPF Urine Culture Indicated YES White Blood Count 6.4 4.3-11.0 10^3/uL Red Blood Count 4.30 3.80-5.11 10^6/uL Hemoglobin 12.9 11.5-16.0 g/dL Hematocrit 39 35-52 % Mean Corpuscular Volume 90 80-99 fL Mean Corpuscular Hemoglobin 30 25-34 pg Mean Corpuscular Hemoglobin Concent 34 32-36 g/dL Red Cell Distribution Width 13.5 10.0-14.5 % Platelet Count 300 130-400 10^3/uL Mean Platelet Volume 10.1 9.0-12.2 fL Immature Granulocyte % (Auto) 0 % Neutrophils (%) (Auto) 50 42-75 % Lymphocytes (%) (Auto) 42 12-44 % Monocytes (%) (Auto) 6 0-12 % Eosinophils (%) (Auto) 1 0-10 % Basophils (%) (Auto) 1 0-10 % Neutrophils # (Auto) 3.2 1.8-7.8 10^3/uL Lymphocytes # (Auto) 2.7 1.0-4.0 10^3/uL Monocytes # (Auto) 0.4 0.0-1.0 10^3/uL Eosinophils # (Auto) 0.1 0.0-0.3 10^3/uL Basophils # (Auto) 0.0 0.0-0.1 10^3/uL Immature Granulocyte # (Auto) 0.0 0.0-0.1 10^3/uL Sodium Level 138 135-145 MMOL/L Potassium Level 3.3 L 3.6-5.0 MMOL/L Chloride Level 103 98-107 MMOL/L Carbon Dioxide Level 24 21-32 MMOL/L Anion Gap 11 5-14 MMOL/L Blood Urea Nitrogen 6 L 7-18 MG/DL Creatinine 0.85 0.60-1.30 MG/DL Estimat Glomerular Filtration Rate 83 BUN/Creatinine Ratio 7 Glucose Level 280 H 70-105 MG/DL Calcium Level 9.6 8.5-10.1 MG/DL Corrected Calcium 9.8 8.5-10.1 MG/DL Total Bilirubin 0.3 0.1-1.0 MG/DL Aspartate Amino Transf (AST/SGOT) 16 5-34 U/L Alanine Aminotransferase (ALT/SGPT) 17 0-55 U/L Alkaline Phosphatase 87 40-136 U/L C-Reactive Protein High Sensitivity 0.25 0.00-0.50 MG/DL Total Protein 7.3 6.4-8.2 GM/DL Albumin 3.8 3.2-4.5 GM/DL Lipase 28 8-78 U/L My Orders Orders - YADIRA WHITEHEAD MD Ua Culture If Indicated (12/08/21 21:44) Urine Culture (12/08/21 21:47) Phenazopyridine Tablet (Pyridium Tablet) (12/08/21 23:30) Cbc With Automated Diff (10/1/22 00:55) Comprehensive Metabolic Panel (12/09/21 00:55) Hs C Reactive Protein (12/09/21 00:55) Lipase (12/09/21 00:55) Lactated Ringers (Lr 1000 Ml Iv Solution (12/09/21 01:00) Ondansetron Injection (Zofran Injectio (12/09/21 01:00) Hyoscyamine Sl Tablet (Levsin Sl Tablet) (12/09/21 01:00) Fluconazole Tablet (Ed Only) (Diflucan T (12/09/21 02:45) Medications Given in ED Current Medications Medications Dose Ordered Sig/Hunter Route Start Time Stop Time Status Last Admin Dose Admin Hyoscyamine Sulfate 0.25 mg ONCE ONCE SL 12/09/21 01:00 12/09/21 01:01 DC 12/09/21 01:26 0.25 MG Lactated Ringer's 1,000 ml @ 0 mls/hr Q0M ONCE IV 12/09/21 01:00 12/09/21 01:01 DC 12/09/21 01:31 999 MLS/HR Ondansetron HCl 8 mg ONCE ONCE IVP 12/09/21 01:00 12/09/21 01:01 DC 12/09/21 01:31 8 MG Phenazopyridine HCl 200 mg ONCE ONCE PO 12/08/21 23:30 12/08/21 23:31 DC 12/08/21 23:48 200 MG Vital Signs/I&O 12/08/21 21:40 Temp 36.6 Pulse 63 Resp 16 B/P (MAP) 133/82 (99) Pulse Ox 98 O2 Delivery Room Air Capillary Refill : Less Than 3 Seconds Blood Pressure Mean: 99 Departure Impression Primary Impression: Nausea vomiting and diarrhea Additional Impressions: Upper abdominal pain Vulvovaginal candidiasis Urinary tract infection Qualified Codes: N39.0 - Urinary tract infection, site not specified Disposition: HOME, SELF-CARE Condition: Improved Departure-Patient Inst. Decision time for Depature: 02:45 Referrals: [facility] (PCP) Primary Care Physician JESUS ALVARADO (Family) Primary Care Physician Patient Instructions: Abdominal Pain, Adult ED, Vulvovaginal Yeast Infection Add. Discharge Instructions: Start with a noncarbonated clear liquid diet and gradually advance her diet with small quantities of bland food as tolerated. Use Zofran (ondansetron) as prescribed for nausea and vomiting. Use Levsin (hyoscyamine) as prescribed for bowel cramping. Complete your antibiotic as previously prescribed. Use Pyridium for bladder pain. Diflucan has been prescribed for probable yeast infection. Follow-up with your primary care provider soon as possible. Return to the ER if you have worsening symptoms despite following these instructions. All discharge instructions reviewed with patient and/or family. Voiced understanding. Scripts Fluconazole (Diflucan) 150 Mg Tablet 150 MG PO UD, #2 TAB Take December 12 and . Prov: YADIRA WHITEHEAD MD 12/09/21 Ondansetron (Ondansetron Odt) 4 Mg Tab.rapdis 4 MG SL Q4H PRN for NAUSEA/VOMITING, #10 TAB Prov: YADIRA WHITEHEAD MD 12/09/21 Hyoscyamine Sulfate (Levsin-Sl) 0.125 Mg Tab.subl 0.125 MG SL Q4H PRN for CRAMPS, #10 TAB 0 Refills Prov: YADIRA WHITEHEAD MD 12/09/21 YADIRA WHITEHEAD MD Dec 09, 2021 02:49
[2021-12-09 02:51] VITALS: BP 127/79
== END 2021-12-09 02:55 | disposition home or self-care (01) ==
LOC: EDUNIT# 21:15 → ER 21:17
DX: N39.0 Urinary tract infection, site not specified (principal); R11.2 Nausea with vomiting, unspecified; R19.7 Diarrhea, unspecified; E11.9 Type 2 diabetes mellitus without complications; Z79.4 Long term (current) use of insulin
CPT/HCPCS: 36415; 80053; 81000; 83690; 85025; 86141; 87088; 96361; 96374

== ENCOUNTER 2022-01-14 20:31 | Emergency (ER) | payer OTHER ==
[~2022-01-14 20:31] MED LIST changes: +ALBU8.5H6 IH; +ONDA4TAB11 SL; -RT-ALBUINH IH
[2022-01-14 22:39] LABS: BILIRUBIN,URINE NEGATIVE (NEGATIVE); CLARITY,URINE CLEAR; COLOR,URINE YELLOW; GLUCOSE, URINE (UA) 3+ (NEGATIVE); KETONES,URINE NEGATIVE (NEGATIVE); LEUKOCYTE ESTERASE ,URINE NEGATIVE (NEGATIVE); NITRITE,URINE NEGATIVE (NEGATIVE); PROTEIN,URINE NEGATIVE (NEGATIVE)
[2022-01-14 22:46] LABS: BACTERIA,URINE TRACE /HPF; WBC,URINE 0-2 /HPF
[2022-01-14] MEDS ORDERED: NS IV 1000 ML 1,000 ML IV STA (23:16)
[2022-01-14] MEDS ORDERED: fentaNYL INJ 100 MCG/2 ML AMP IVP STA (23:16)
--- NOTE | 2022-01-14 23:18 | ED Abdominal Pain ---
General Chief Complaint: Abdominal/GI Problems Stated Complaint: LEFT SIDE ABD PAIN/DIARRHEA Nursing Triage Note: PT ARRIVAL TO ER WITH COMPLAINT OF ABDOMINAL PAIN, DIARRHEA AND SOME PAINFUL URINATION. HX OF HIATAL HERNIA AND HAS THESE SYMPTOMS EXCEPT PAINFUL URINATION WHEN IT FLARES UP PER PATIENT. PT STATES THAT SHE HAS HAD AT LEAST 12 EPISODES OF DIARRHEA TODAY, AND HAS TAKEN NOTHING TO TRY TO CONTROL IT. Source of Information: Patient Exam Limitations: No Limitations History of Present Illness Date Seen by Provider: Jan 14, 2022 Time Seen by Provider: 23:06 Initial Comments Here with complaint of diarrhea today that has been persistent. She reports left-sided total. With this. Has had nausea but no vomiting. Does have history of hiatal hernia. Denies fever or chills. Unsure what started this. Denies blood in her stool. 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, 12/27/21) Patient Home Medication List Home Medication List Reviewed: Yes Albuterol Sulfate (Ventolin Hfa) 1 Puff Puff, 2 PUFF IH Q6H PRN for SHORTNESS OF BREATH, (Reported) Entered as Reported by: LAUREN PAYNE on 12/02/16 2231 Cetirizine HCl (Zyrtec) 10 Mg Capsule, 10 MG PO DAILY, (Reported) Entered as Reported by: FLAVIA DUNHAM on 04/04/16 2340 Fluconazole (Diflucan) 150 Mg Tablet, 150 MG PO UD Prescribed by: YADIRA FERMIN on 12/09/21 0249 Guaifenesin (Mucinex) 1,200 Mg Tab.er.12h, 1,200 MG PO DAILY, (Reported) Entered as Reported by: ANDREA BARBER on 06/12/18 0953 Hydrocodone/Acetaminophen (Hydrocodone-Acetamin 5-325 mg) 5 Mg-325 Mg Tablet, 1 TAB PO Q4H PRN for PAIN-MODERATE (5-7) Prescribed by: ASIF LEON on 07/22/212258 Hyoscyamine Sulfate (Levsin-Sl) 0.125 Mg Tab.subl, 0.125 MG SL Q4H PRN for CRAMPS Prescribed by: YADIRA FERMIN on 12/09/21248 Insulin Glargine,Hum.rec.anlog (Lantus Solostar) 100 Unit/1 Ml Insuln.pen, 50 UNITS SC HS, (Reported) Entered as Reported by: FLAVIA DUNHAM on 07/13/152140 Metformin HCl (Metformin HCl) 1,000 Mg Tablet, 1,000 MG PO BID, (Reported) Entered as Reported by: FLAVIA DUNHAM on 07/13/152140 Naproxen (Naproxen) 500 Mg Tablet., 500 MG PO BID Prescribed by: ASIF LEON on 07/22/212258 Naproxen (Naproxen) 500 Mg Tablet.dr, 500 MG PO BID Prescribed by: NOEL CHIN on 11/21/21 235 Omeprazole (Omeprazole) 40 Mg Capsule., (Reported) Entered as Reported by: LAUREN PAYNE on 11/21/21 2336 Ondansetron (Ondansetron Odt) 4 Mg Tab.rapdis, 4 MG SL Q4H PRN for NAUSEA/VOMITING Prescribed by: YADIRA FERMIN on 12/09/21248 Ondansetron HCl (Zofran) 4 Mg Tab, 4 MG PO Q4H Prescribed by: AIDEE SOUZA on 05/26/182202 Polyethylene Glycol 3350 (Miralax) 17 Gm Powd.pack, 17 GM PO DAILY Prescribed by: NOEL CHIN on 04/06/19 005 Sucralfate (Carafate) 1 Gm Tablet, 1 GM PO QID Prescribed by: NOEL CHIN on 12/27/191955 Review of Systems Review of Systems Constitutional: see HPI; No chills, No fever EENTM: No Nose Congestion, No Throat Pain Respiratory: Denies Cough, Denies Shortness of Air Cardiovascular: Denies Chest Pain, Denies Edema Gastrointestinal: Abdominal Pain, Diarrhea, Nausea Genitourinary: Burning; Denies Frequency Musculoskeletal: No back pain, No joint pain Skin: No change in color, No lesions, No rash Psychiatric/Neurological: Denies Headache, Denies Weakness All Other Systems Reviewed Negative Unless Noted: Yes Past Ooixayp-Tmjoaj-Ivuyrg Hx Patient Social History Tobacco Use?: No Use of E-Cig and/or Vaping dev: No Substance use?: No Alcohol Use?: No Pt feels they are or have been: No Immunizations Up To Date Tetanus Booster (TDap): Unknown PED Vaccines UTD: No Influenza Vaccine Up-to-Date: Yes; Up-to-Date First/Initial COVID19 Vaccinat: 03/19/20 Second COVID19 Vaccination Franco: 04/08/20 Third COVID19 Vaccination Date: 01/05/21 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 LEFT BREAST BIOPSY 11/15/21-BENIGN Surgeries: Yes (HIATAL HERNIA REPAIR 2016; HARLEY 06/2018; BILAT KNEE SCOPES; EYE SURGERY ) Abdominal, Breast, Eye Surgery, Gallbladder, Orthopedic Respiratory: Yes Asthma Currently Using CPAP: No Currently Using BIPAP: No Cardiac: Yes High Cholesterol Neurological: No Reproductive Disorders: Yes Female Reproductive Disorders: Menstrual Problems Sexually Transmitted Disease: No HIV/AIDS: No Genitourinary: Yes Bladder Infection, UTI-Chronic Gastrointestinal: Yes (ESOPHAGEAL NARROWING; HIATAL HERNIA REPAIR 2016; CHOLECYSTECTOMY 06/2018) Gastroesophageal Reflux, Hiatal Hernia, Ulcer, Gall Bladder Disease Musculoskeletal: Yes Arthritis Endocrine: Yes Diabetes, Insulin dep HEENT: Yes (GLASSES; EYE SURGERY ;EXTENSIVE DENTAL DECAY) Loss of Vision: Bilateral Hearing Impairment: Denies Cancer: No Psychosocial: No Integumentary: No Blood Disorders: No Adverse Reaction/Blood Tranf: No (N/A) Family Medical History Reviewed Nursing Family Hx Arthritis 19 FATHER 19 MOTHER G8 SISTER Asthma 19 FATHER 19 MOTHER G8 SISTER Cataracts 19 MOTHER Diabetes mellitus 19 FATHER 19 MOTHER G8 SISTER FH: leukemia 19 FATHER Myocardial infarction 19 MOTHER Parkinson's disease 19 FATHER Thyroid disease 19 MOTHER Asthma, CAD Over 55 Years Old, Diabetes PSH: -EYE SURGERY INFANT -BILATERAL KNEE SCOPES -HIATAL HERNIA REPAIR 07/2016 -LAP HARLEY 06/2018 -LAST COLONOSCOPY 01/08/19 Physical Exam Vital Signs Vital Signs - First Documented 01/14/22 21:43 Temp 36.6 Pulse 77 Resp 18 B/P (MAP) 145/90 (108) Pulse Ox 99 O2 Delivery Room Air Capillary Refill : Less Than 3 Seconds Height/Weight/BMI Height: 5'3.00" Weight: 178lbs. 0.0oz. 80.978012ly; 34.00 BMI Method:Stated General Appearance: WD/WN, mild distress HEENT: PERRL/EOMI, pharynx normal Neck: full range of motion, supple Respiratory: lungs clear, normal breath sounds Cardiovascular: regular rate, rhythm, no murmur Peripheral Pulses: 2+ Dorsalis Pedis (R), 2+ Left Dors-Pedis (L), 2+ Radial Pulses (R), 2+ Radial Pulses (L) Gastrointestinal: normal bowel sounds, soft; No guarding, No rebound; tenderness (Mild left-sided upper and lower abdominal pain) Extremities: non-tender, normal inspection Back: normal inspection, no CVA tenderness, no vertebral tenderness Neurologic/Psychiatric: alert, oriented x 3 Skin: normal color, warm/dry Progress/Results/Core Measures Results/Orders Lab Results Laboratory Tests Test 01/14/22 22:33 01/14/22 23:45 Range/Units Urine Color YELLOW Urine Clarity CLEAR Urine pH 6.0 5-9 Urine Specific [place] 1.020 1.016-1.022 Urine Protein NEGATIVE NEGATIVE Urine Glucose (UA) 3+ H NEGATIVE Urine Ketones NEGATIVE NEGATIVE Urine Nitrite NEGATIVE NEGATIVE Urine Bilirubin NEGATIVE NEGATIVE Urine Urobilinogen 0.2 < = 1.0 MG/DL Urine Leukocyte Esterase NEGATIVE NEGATIVE Urine RBC (Auto) NEGATIVE NEGATIVE Urine RBC NONE /HPF Urine WBC 0-2 /HPF Urine Squamous Epithelial Cells 5-10 /HPF Urine Crystals NONE /LPF Urine Bacteria TRACE /HPF Urine Casts NONE /LPF Urine Mucus NEGATIVE /LPF Urine Culture Indicated NO White Blood Count 7.2 4.3-11.0 10^3/uL Red Blood Count 4.15 3.80-5.11 10^6/uL Hemoglobin 12.3 11.5-16.0 g/dL Hematocrit 37 35-52 % Mean Corpuscular Volume 90 80-99 fL Mean Corpuscular Hemoglobin 30 25-34 pg Mean Corpuscular Hemoglobin Concent 33 32-36 g/dL Red Cell Distribution Width 13.2 10.0-14.5 % Platelet Count 340 130-400 10^3/uL Mean Platelet Volume 9.9 9.0-12.2 fL Immature Granulocyte % (Auto) 0 % Neutrophils (%) (Auto) 51 42-75 % Lymphocytes (%) (Auto) 40 12-44 % Monocytes (%) (Auto) 6 0-12 % Eosinophils (%) (Auto) 1 0-10 % Basophils (%) (Auto) 1 0-10 % Neutrophils # (Auto) 3.7 1.8-7.8 10^3/uL Lymphocytes # (Auto) 2.9 1.0-4.0 10^3/uL Monocytes # (Auto) 0.5 0.0-1.0 10^3/uL Eosinophils # (Auto) 0.1 0.0-0.3 10^3/uL Basophils # (Auto) 0.0 0.0-0.1 10^3/uL Immature Granulocyte # (Auto) 0.0 0.0-0.1 10^3/uL Sodium Level 138 135-145 MMOL/L Potassium Level 3.7 3.6-5.0 MMOL/L Chloride Level 105 98-107 MMOL/L Carbon Dioxide Level 20 L 21-32 MMOL/L Anion Gap 13 5-14 MMOL/L Blood Urea Nitrogen 13 7-18 MG/DL Creatinine 0.76 0.60-1.30 MG/DL Estimat Glomerular Filtration Rate 95 BUN/Creatinine Ratio 17 Glucose Level 258 H 70-105 MG/DL Calcium Level 9.5 8.5-10.1 MG/DL Corrected Calcium 9.6 8.5-10.1 MG/DL Magnesium Level 1.7 1.6-2.4 MG/DL Total Bilirubin 0.2 0.1-1.0 MG/DL Aspartate Amino Transf (AST/SGOT) 14 5-34 U/L Alanine Aminotransferase (ALT/SGPT) 16 0-55 U/L Alkaline Phosphatase 94 40-136 U/L C-Reactive Protein High Sensitivity 0.37 0.00-0.50 MG/DL Total Protein 7.4 6.4-8.2 GM/DL Albumin 3.9 3.2-4.5 GM/DL Lipase 51 8-78 U/L My Orders Orders - WILEY AMBRIZ MD Ua Culture If Indicated (01/14/22 22:27) Cbc With Automated Diff (01/14/22 23:16) Comprehensive Metabolic Panel (01/14/22 23:16) Hs C Reactive Protein (01/14/22 23:16) Lipase (01/14/22 23:16) Magnesium (01/14/22 23:16) Ondansetron Injection (Zofran Injectio (01/14/22 23:30) Ns Iv 1000 Ml (Sodium Chloride 0.9%) (01/14/22 23:16) Ed Iv/Invasive Line Start (01/14/22 23:16) Fentanyl Inj (Sublimaze Injection) (01/14/22 23:16) Ct Abdomen/Pelvis W (01/15/22 00:25) Iohexol Injection (Omnipaque 350 Mg/Ml 1 (01/15/22 00:45) Sodium Chloride Flush (Catheter Flush Sy (01/15/22 00:45) Ns (Ivpb) (Sodium Chloride 0.9% Ivpb Bag (01/15/22 00:45) Medications Given in ED Current Medications Medications Dose Ordered Sig/Hunter Route Start Time Stop Time Status Last Admin Dose Admin Iohexol 100 ml ONCE ONCE IV 01/15/22 00:45 01/15/22 00:46 DC 01/15/22 00:45 80 ML Ondansetron HCl 4 mg ONCE ONCE IVP 01/14/22 23:30 01/14/22 23:31 DC 01/14/22 23:59 4 MG Sodium Chloride 10 ml NEEDED PRN IV 01/15/22 00:45 01/15/22 00:45 10 ML Sodium Chloride 100 ml ONCE ONCE IV 01/15/22 00:45 01/15/22 00:46 DC 01/15/22 00:45 80 ML Vital Signs/I&O 01/14/22 21:43 Temp 36.6 Pulse 77 Resp 18 B/P (MAP) 145/90 (108) Pulse Ox 99 O2 Delivery Room Air Blood Pressure Mean: 108 Progress Progress Note : Progress Note Seen and evaluated. IV, labs, UA, normal saline 1 L bolus. Fentanyl 50 mcg IV ordered for pain. Zofran 4 mg IV for nausea. Monitor patient. 0059: We have ordered CT scan of the abdomen and pelvis due to the pain. That is complete we are pending results. Patient resting peacefully. Monitor patient. 0132: CT report noted. No significant persistent diarrhea currently. She has received her fluid. We did discuss her blood sugars. Discharged home with return precautions. Patient verbalized understanding instructions and agreement with plan. Diagnostic Imaging Diagonstic Imaging: CT Plain Films/CT/US/NM/MRI: abdomen, pelvis Comments Thickening of the proximal jejunal folds. No other acute or suspicious abnormality. No evidence of cystitis. Small hiatal hernia. Per radiology report. See full report for details. Departure Impression Primary Impression: Left sided abdominal pain Additional Impression: Diarrhea Qualified Codes: R19.7 - Diarrhea, unspecified Disposition: HOME, SELF-CARE Condition: Stable Departure-Patient Inst. Decision time for Depature: 01:33 Referrals: [facility] (PCP/Family) Primary Care Physician Patient Instructions: Severe Abdominal Pain, Adult (DC), Diarrhea, Adult ED Add. Discharge Instructions: All discharge instructions reviewed with patient and/or family. Voiced understanding. Clear a light diet for the next 24 hours and then advance as tolerated. You may use [id number] Imodium per package directions. Follow-up with your doctor early this week for recheck and further evaluation. Return for worse pain, fever, vomiting, weakness, breathing problems or other concerns as needed. WILEY AMBRIZ MD Jan 14, 2022 23:18
[2022-01-14] MEDS ORDERED: ONDANSETRON 4 MG/2 ML (SDV) Z0FRAN IVP ONE (23:30)
[2022-01-15 00:01] LABS: BASOPHILS % (AUTO) 1 % (0-10); EOSINOPHILS # (AUTO) 0.1 10^3/uL (0.0-0.3); EOSINOPHILS % (AUTO) 1 % (0-10); HEMATOCRIT 37 % (35-52); HEMOGLOBIN 12.3 g/dL (11.5-16.0); LYMPHOCYTES # (AUTO) 2.9 10^3/uL (1.0-4.0); LYMPHOCYTES % (AUTO) 40 % (12-44); MEAN CORPUSCULAR HEMOGLOBIN 30 pg (25-34); MEAN CORPUSCULAR HGB CONC 33 g/dL (32-36); MEAN CORPUSCULAR VOLUME 90 fL (80-99); MEAN PLATELET VOLUME 9.9 fL (9.0-12.2); MONOCYTES # (AUTO) 0.5 10^3/uL (0.0-1.0); MONOCYTES % (AUTO) 6 % (0-12); NEUTROPHILS # (AUTO) 3.7 10^3/uL (1.8-7.8); NEUTROPHILS % (AUTO) 51 % (42-75); PLATELET COUNT 340 10^3/uL (130-400); WHITE BLOOD COUNT 7.2 10^3/uL (4.3-11.0)
[2022-01-15 00:11] LABS: ALBUMIN 3.9 GM/DL (3.2-4.5); POTASSIUM 3.7 MMOL/L (3.6-5.0)
[2022-01-15 00:13] LABS: CALCIUM 9.5 MG/DL (8.5-10.1)
[2022-01-15 00:14] LABS: TOTAL PROTEIN 7.4 GM/DL (6.4-8.2)
[2022-01-15 00:16] LABS: BILIRUBIN,TOTAL 0.2 MG/DL (0.1-1.0)
[2022-01-15 00:17] LABS: CREATININE SERUM 0.76 MG/DL (0.60-1.30)
[2022-01-15 00:20] LABS: MAGNESIUM 1.7 MG/DL (1.6-2.4)
[2022-01-15] MEDS ORDERED: IOHEXOL 350 MG/ML 100 ML (OMNIPAQUE 350) VIAL IV ONE (00:45)
[2022-01-15] MEDS ORDERED: NS 100 ML (IVPB) BAG IV ONE (00:45)
[2022-01-15] MEDS ORDERED: CATHETER FLUSH 10 ML SYR IV PRN (00:45)
[2022-01-15 01:41] VITALS: BP 159/96
--- NOTE | 2022-01-15 06:30 | Diagnostic Imaging Report ---
EXAMINATION: CT abdomen and pelvis with intravenous contrast. TECHNIQUE: Multiple contiguous axial images were obtained through the abdomen and pelvis after the uneventful administration of intravenous contrast. All CT scans use one or more of the following dose optimizing techniques: automated exposure control, MA and/or KvP adjustment based on patient size and exam type or iterative reconstruction. HISTORY: Left-sided abdominal pain COMPARISON: 07/22/2021 FINDINGS: Lung bases: Bibasilar dependent atelectasis. Solid organs: The liver is normal without focal lesion. The gallbladder is surgically absent. There is no biliary ductal dilation. Pancreas is normal. Spleen is normal. Adrenal glands are normal. The kidneys are normal without hydronephrosis. Bowel: The stomach and small bowel are normal without obstruction. The colon is unremarkable. No findings of acute appendicitis. Peritoneum: There is no intraperitoneal free fluid or free air. No suspicious lymphadenopathy. Vasculature: Normal without aneurysm. Musculoskeletal: No suspicious osseous lesion or compression fracture. Pelvis: There is suggestion of intramural uterine fibroid. The urinary bladder is normal. IMPRESSION: 1. No acute abnormality in the abdomen or pelvis. 2. Agree with preliminary interpretation. Dictated by: Dictated on workstation # [id number]
== END 2022-01-15 01:45 | disposition home or self-care (01) ==
LOC: EDUNIT# 20:31 → ER 20:34
DX: R10.12 Left upper quadrant pain (principal); R10.32 Left lower quadrant pain; R19.7 Diarrhea, unspecified; E11.9 Type 2 diabetes mellitus without complications; Z90.49 Acquired absence of other specified parts of digestive tract; Z79.4 Long term (current) use of insulin
CPT/HCPCS: 36415; 74177; 80053; 81000; 83690; 83735; 85025; 86141

== ENCOUNTER 2022-01-22 15:30 | Emergency (ER) | payer OTHER ==
[~2022-01-22] VITALS: Ht 160 cm; Wt 83.9 kg
--- NOTE | 2022-01-22 15:56 | ED Integumentary General ---
General Chief Complaint: Skin/Wound Problems Stated Complaint: POLYP IN NOSE,HEADACHE,DIZZY Nursing Triage Note: PT PRESENTS TO ED VIA POV FROM HOME WITH COMPLAINTS OF POLYP/REDNESS ON NOSE SINCE LAST WEEK. PT REPORTS SHE HAS BEEN SEEN BY HER PRIMARY DR AND PRESCRIBED ANTIBIOTICS BUT HAS NOT HAD IMPROVEMENT. Source: patient Exam Limitations: no limitations History of Present Illness Date Seen by Provider: Jan 22, 2022 Time Seen by Provider: 15:45 Initial Comments Patient is a 51-year-old female who presents to the emergency room from [facility] with a chief complaint of cellulitis to the nose. Patient had a lesion on the left nare diagnosed a week ago last Saturday. She has been on Bactrim and mupirocin ointment with continuous pain. She has had frontal headache and pain over the left maxillary sinus. No fevers or chills. She states intermittent blurry vision and weakness. No unilateral numbness weakness or tingling. No alteration in mentation. No double vision or eye pain. No problems with balance or coordination. She states she has been using the mupirocin and Bactrim faithfully. Complains of intense pain in her nose. Taking Tylenol without relief of symptoms. She is a diabetic on insulin, large doses. Last A1c reported by the nurse practitioner who initially evaluated her was 13.2. All other review of systems reviewed and negative except as stated. 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, 12/27/21) Patient Home Medication List Home Medication List Reviewed: Yes Albuterol Sulfate (Ventolin Hfa) 1 Puff Puff, 2 PUFF IH Q6H PRN for SHORTNESS OF BREATH, (Reported) Entered as Reported by: LAUREN PAYNE on 12/02/162230 Cetirizine HCl (Zyrtec) 10 Mg Capsule, 10 MG PO DAILY, (Reported) Entered as Reported by: FLAIVA DUNHAM on 04/04/16 2340 Doxycycline Hyclate (Doxycycline Hyclate) 100 Mg Tablet, 100 MG PO BID Prescribed by: LUPE BUENO on 01/22/22 165 Fluconazole (Diflucan) 150 Mg Tablet, 150 MG PO UD Prescribed by: YADIRA FERMIN on 12/09/21248 Guaifenesin (Mucinex) 1,200 Mg Tab.er.12h, 1,200 MG PO DAILY, (Reported) Entered as Reported by: ANDREA BARBER on 06/12/18 0953 Hydrocodone/Acetaminophen (Hydrocodone-Acetamin 5-325 mg) 5 Mg-325 Mg Tablet, 1 TAB PO Q4H PRN for PAIN-MODERATE (5-7) Prescribed by: ASIF LEON on 07/22/212258 Hyoscyamine Sulfate (Levsin-Sl) 0.125 Mg Tab.subl, 0.125 MG SL Q4H PRN for CRAMPS Prescribed by: YADIAR FERMIN on 12/09/21248 Insulin Glargine,Hum.rec.anlog (Lantus Solostar) 100 Unit/1 Ml Insuln.pen, 50 UNITS SC HS, (Reported) Entered as Reported by: FLAVIA DUNHAM on 07/13/152140 Metformin HCl (Metformin HCl) 1,000 Mg Tablet, 1,000 MG PO BID, (Reported) Entered as Reported by: FLAVIA DUNHAM on 07/13/152140 Naproxen (Naproxen) 500 Mg Tablet.dr, 500 MG PO BID Prescribed by: ASIF LEON on 07/22/212258 Naproxen (Naproxen) 500 Mg Tablet.dr, 500 MG PO BID Prescribed by: NOEL CHIN on 11/21/21 235 Omeprazole (Omeprazole) 40 Mg Capsule., (Reported) Entered as Reported by: LAUREN PAYNE on 11/21/21 2336 Ondansetron (Ondansetron Odt) 4 Mg Tab.rapdis, 4 MG SL Q4H PRN for NAUSEA/VOMITING Prescribed by: YADIRA FERMIN on 12/09/21 024 Ondansetron HCl (Zofran) 4 Mg Tab, 4 MG PO Q4H Prescribed by: AIDEE SOUZA on 05/26/182202 Polyethylene Glycol 3350 (Miralax) 17 Gm Powd.pack, 17 GM PO DAILY Prescribed by: NOEL CHIN on 04/06/1955 Sucralfate (Carafate) 1 Gm Tablet, 1 GM PO QID Prescribed by: NOEL CHIN on 12/27/191955 Review of Systems Review of Systems Constitutional: see HPI, malaise EENTM: blurred vision (intermittently), other (left facial pain) Respiratory: no symptoms reported Cardiovascular: no symptoms reported Gastrointestinal: no symptoms reported Genitourinary: no symptoms reported Musculoskeletal: no symptoms reported Skin: lesions (left nare) Past Kwmqxnl-[id number]-Rjjrjh Hx Patient Social History Tobacco Use?: No Substance use?: No Alcohol Use?: No Pt feels they are or have been: No Immunizations Up To Date Tetanus Booster (TDap): Unknown PED Vaccines UTD: No First/Initial COVID19 Vaccinat: 03/19/20 Second COVID19 Vaccination Franco: 04/08/20 Third COVID19 Vaccination Date: 01/05/21 Seasonal Allergies Seasonal Allergies: Yes Past Medical History Surgery/Hospitalization HX: PMH;DM, GERD, HTN SURGERY;HITAL HERNIA SURGERY, GALLBLADDER, BILATERAL KNEES, AND EYESURGERY.LEFT BREAST BIOPSY 11/15/21-BENIGN Surgeries: Yes (HIATAL HERNIA REPAIR 2016; HARLEY 06/2018; BILAT KNEE SCOPES; EYE SURGERY ) Abdominal, Breast, Eye Surgery, Gallbladder, Orthopedic Respiratory: Yes Asthma Currently Using CPAP: No Currently Using BIPAP: No Cardiac: Yes High Cholesterol Neurological: No Reproductive Disorders: Yes Female Reproductive Disorders: Menstrual Problems Sexually Transmitted Disease: No HIV/AIDS: No Genitourinary: Yes Bladder Infection, UTI-Chronic Gastrointestinal: Yes (ESOPHAGEAL NARROWING; HIATAL HERNIA REPAIR 2016; CHOLECYSTECTOMY 06/2018) Gastroesophageal Reflux, Hiatal Hernia, Ulcer, Gall Bladder Disease Musculoskeletal: Yes Arthritis Endocrine: Yes Diabetes, Insulin dep HEENT: Yes (GLASSES; EYE SURGERY INFANT;EXTENSIVE DENTAL DECAY) Loss of Vision: Bilateral Hearing Impairment: Denies Cancer: No Psychosocial: No Integumentary: No Blood Disorders: No Adverse Reaction/Blood Tranf: No (N/A) Family Medical History Arthritis 19 FATHER 19 MOTHER G8 SISTER Asthma 19 FATHER 19 MOTHER G8 SISTER Cataracts 19 MOTHER Diabetes mellitus 19 FATHER 19 MOTHER G8 SISTER FH: leukemia 19 FATHER Myocardial infarction 19 MOTHER Parkinson's disease 19 FATHER Thyroid disease 19 MOTHER Asthma, CAD Over 55 Years Old, Diabetes PSH: -EYE SURGERY INFANT -BILATERAL KNEE SCOPES -HIATAL HERNIA REPAIR 07/2016 -LAP HARLEY 06/2018 -LAST COLONOSCOPY 01/08/19 Physical Exam Vital Signs Vital Signs - First Documented 01/22/22 15:45 Temp 36.2 Pulse 74 Resp 18 B/P (MAP) 156/97 (116) Pulse Ox 100 Capillary Refill : General Appearance: WD/WN HEENT: PERRL/EOMI, pharynx normal, other (tenderness adjacent to the left side of the nose over the maxilla; no fluctucance. crusted lesion to the left nare external and internally; no fluctuance or active drainage. very tender to palpation. erythema over the entire nose.) Neck: full range of motion, supple, normal inspection Cardiovascular: regular rate, rhythm Respiratory: lungs clear, normal breath sounds, no respiratory distress, no accessory muscle use Extremities: normal range of motion, non-tender, normal inspection, no pedal edema Neurologic/Psychiatric: washer meat II-XII nml as tested, no motor/sensory deficits, alert, normal mood/affect, oriented x 3, other (normal finger to nose; normal strength and sensation; no nystagmus; no EOM palsies.) Skin: normal color, warm/dry, other (as above EENT exam) Progress/Results/Core Measures Results/Orders Lab Results Laboratory Tests Test 01/22/22 16:06 Range/Units White Blood Count 6.7 4.3-11.0 10^3/uL Red Blood Count 4.45 3.80-5.11 10^6/uL Hemoglobin 13.1 11.5-16.0 g/dL Hematocrit 40 35-52 % Mean Corpuscular Volume 89 80-99 fL Mean Corpuscular Hemoglobin 29 25-34 pg Mean Corpuscular Hemoglobin Concent 33 32-36 g/dL Red Cell Distribution Width 13.0 10.0-14.5 % Platelet Count 344 130-400 10^3/uL Mean Platelet Volume 10.2 9.0-12.2 fL Immature Granulocyte % (Auto) 0 % Neutrophils (%) (Auto) 56 42-75 % Lymphocytes (%) (Auto) 37 12-44 % Monocytes (%) (Auto) 6 0-12 % Eosinophils (%) (Auto) 0 0-10 % Basophils (%) (Auto) 1 0-10 % Neutrophils # (Auto) 3.7 1.8-7.8 10^3/uL Lymphocytes # (Auto) 2.5 1.0-4.0 10^3/uL Monocytes # (Auto) 0.4 0.0-1.0 10^3/uL Eosinophils # (Auto) 0.0 0.0-0.3 10^3/uL Basophils # (Auto) 0.1 0.0-0.1 10^3/uL Immature Granulocyte # (Auto) 0.0 0.0-0.1 10^3/uL Sodium Level 136 135-145 MMOL/L Potassium Level 4.0 3.6-5.0 MMOL/L Chloride Level 104 98-107 MMOL/L Carbon Dioxide Level 19 L 21-32 MMOL/L Anion Gap 13 5-14 MMOL/L Blood Urea Nitrogen 12 7-18 MG/DL Creatinine 0.78 0.60-1.30 MG/DL Estimat Glomerular Filtration Rate 92 BUN/Creatinine Ratio 15 Glucose Level 247 H 70-105 MG/DL Lactic Acid Level 1.49 0.50-2.00 MMOL/L Calcium Level 9.6 8.5-10.1 MG/DL C-Reactive Protein High Sensitivity 0.60 H 0.00-0.50 MG/DL My Orders Orders - LUPE BUENO MD Ed Iv/Invasive Line Start (01/22/22 15:56) Cbc With Automated Diff (01/22/22 15:56) Basic Metabolic Panel (01/22/22 15:56) Blood Culture (01/22/22 15:56) Lactic Acid Analyzer (01/22/22 15:56) Hs C Reactive Protein (01/22/22 15:56) Hydrocodone/Apap 5/325 Tablet (Lortab 5 (01/22/22 16:00) Ondansetron Oral Dissolve Tab (Zofran (01/22/22 16:00) Ns Iv 1000 Ml (Sodium Chloride 0.9%) (01/22/22 16:00) Blood Culture (01/22/22 16:10) Medications Given in ED Current Medications Medications Dose Ordered Sig/Hunter Route Start Time Stop Time Status Last Admin Dose Admin Acetaminophen/ Hydrocodone Bitart 1 ea ONCE ONCE PO 01/22/22 16:00 01/22/22 16:01 DC 01/22/22 16:22 1 EA Ondansetron HCl 4 mg ONCE ONCE PO 01/22/22 16:00 01/22/22 16:01 DC 01/22/22 16:22 4 MG Vital Signs/I&O 01/22/22 15:45 Temp 36.2 Pulse 74 Resp 18 B/P (MAP) 156/97 (116) Pulse Ox 100 Blood Pressure Mean: 116 Departure Impression Primary Impression: Cellulitis of nose, external Disposition: 01 HOME, SELF-CARE Condition: Stable Departure-Patient Inst. Decision time for Depature: 16:49 Referrals: [facility] (PCP/Family) Primary Care Physician Patient Instructions: Cellulitis (Skin Infection), Adult ED Add. Discharge Instructions: Wash the area on your nose gently twice a day with a gentle soap and water. Continue to use the mupirocin ointment both outside the nose and on the inside. Change your antibiotics to Doxycycline 100mg twice a day for the next 10 days. You need to take an over the counter PROBIOTIC daily - as the pharmacist for one of the refrigerated ones behind the counter and take this daily while on antibiotics. You can take Hydrocodone 5mg 1 pill with an extra strength tylenol every 6 hours for pain as needed for severe pain -otherwise 2 Extra Strength Tylenol every 6 hours. Follow up with [facility] in 3-4 days for a wound re-evaluation. Return to the Emergency Department for any worsening symptoms, high fever, vomi ting, spreading redness, change in mental state. Scripts Hydrocodone/Acetaminophen (Hydrocodone-Acetamin 5-325 mg) 5 Mg-325 Mg Tablet 1 TAB PO Q6H PRN for PAIN-MODERATE (5-7), #8 TAB Prov: LUPE BUENO MD 01/22/22 Doxycycline Hyclate (Doxycycline Hyclate) 100 Mg Tablet 100 MG PO BID for 10 Days, #20 TAB Prov: LUPE BUENO MD 01/22/22 LUPE BUENO MD Jan 22, 2022 15:56
[2022-01-22] MEDS ORDERED: ONDANSETRON 4 MG (ZOFRAN) ORAL DISSOLVE TAB PO ONE (16:00)
[2022-01-22] MEDS ORDERED: HYDROcodone/APAP 5 MG/325 MG (LORTAB) TAB PO ONE (16:00)
[2022-01-22] MEDS ORDERED: NS IV 1000 ML 1,000 ML IV SCH (16:00)
[2022-01-22 16:23] LABS: BASOPHILS # (AUTO) 0.1 10^3/uL (0.0-0.1); BASOPHILS % (AUTO) 1 % (0-10); EOSINOPHILS % (AUTO) 0 % (0-10); HEMATOCRIT 40 % (35-52); HEMOGLOBIN 13.1 g/dL (11.5-16.0); LYMPHOCYTES # (AUTO) 2.5 10^3/uL (1.0-4.0); LYMPHOCYTES % (AUTO) 37 % (12-44); MEAN CORPUSCULAR HEMOGLOBIN 29 pg (25-34); MEAN CORPUSCULAR HGB CONC 33 g/dL (32-36); MEAN CORPUSCULAR VOLUME 89 fL (80-99); MEAN PLATELET VOLUME 10.2 fL (9.0-12.2); MONOCYTES # (AUTO) 0.4 10^3/uL (0.0-1.0); MONOCYTES % (AUTO) 6 % (0-12); NEUTROPHILS # (AUTO) 3.7 10^3/uL (1.8-7.8); NEUTROPHILS % (AUTO) 56 % (42-75); PLATELET COUNT 344 10^3/uL (130-400); WHITE BLOOD COUNT 6.7 10^3/uL (4.3-11.0)
[2022-01-22 16:31] LABS: CALCIUM 9.6 MG/DL (8.5-10.1)
[2022-01-22 16:35] LABS: CREATININE SERUM 0.78 MG/DL (0.60-1.30)
[2022-01-22] MEDS ORDERED: DOXY100T2 PO (16:52)
[2022-01-22] MEDS ORDERED: ACHD5005 PO (17:00)
[2022-01-22 17:40] VITALS: BP 146/99
== END 2022-01-22 17:40 | disposition home or self-care (01) ==
LOC: EDUNIT# 15:30 → ER 15:32
DX: J34.0 Abscess, furuncle and carbuncle of nose (principal); E11.9 Type 2 diabetes mellitus without complications; Z88.0 Allergy status to penicillin; Z79.4 Long term (current) use of insulin
CPT/HCPCS: 36415; 80048; 83605; 85025; 86141; 87040

== ENCOUNTER 2022-06-02 20:48 | Emergency (ER) | payer OTHER ==
[~2022-06-02] VITALS: Ht 160 cm; Wt 84.4 kg
[~2022-06-02 20:48] MED LIST changes: -DOXY-311 PO; +DOXY-444 PO; +DOXY100T2 PO
[2022-06-02 20:53] VITALS: BP 177/113
[2022-06-02] MEDS ORDERED: FAMOTIDINE 20 MG (PEPCID) TABLET PO STA (20:59)
[2022-06-02] MEDS ORDERED: NS IV 1000 ML 1,000 ML IV STA (20:59)
[2022-06-02] MEDS ORDERED: ACETAMINOPHEN 500 MG TAB (TYLENOL) PO ONE (21:00)
[2022-06-02] MEDS ORDERED: ANTACID SUSP 30 ML UDC (MYLANTA) PO ONE (21:00)
[2022-06-02] MEDS ORDERED: PROMETHAZINE INJ 25 MG/ML (PHENERGAN) AMP IVP ONE (21:00)
[2022-06-02] MEDS ORDERED: LIDOCAINE 2% VISCOUS 15 ML UDC PO ONE (21:00)
--- NOTE | 2022-06-02 21:02 | ED Abdominal Pain ---
General Chief Complaint: Abdominal/GI Problems Stated Complaint: ABD PAIN Nursing Triage Note: PT AMB TO ED BY POV WITH C/O ABD PAIN. PT REPORTS SHE IS SCHEDULED FOR SURGERY AT FOR A HIATAL HERNIA AND GASTROPARESIS IN JULY. PT REPORTS ABD PAIN BECAME MUCH WORSE TODAY. PT REPORTS NAUSEA, DENIES VOMITING OR FEVER, LBM NORMAL FOR HER AT 1530 TODAY. Source of Information: Patient Exam Limitations: No Limitations History of Present Illness Date Seen by Provider: Jun 02, 2022 Time Seen by Provider: 20:51 Initial Comments 52-year-old female with past medical history of gastroparesis and diabetes most notably coming in due to upper abdominal pain started earlier today, constant, sharp, feels similar to numerous prior episodes that she has been dealing with for several months to years. Follows with , and is supposed to have surgery within the next month roughly for her gastroparesis as well as hiatal hernia. Took Tylenol last this morning, no meds really since then. Otherwise denying any other acute complaints. Having some nausea but no vomiting. Had a normal bowel movement several hours ago. LMP 2 weeks ago. 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) Patient Home Medication List Home Medication List Reviewed: Yes Albuterol Sulfate (Ventolin Hfa) 1 Puff Puff, 2 PUFF IH Q6H PRN for SHORTNESS OF BREATH, (Reported) Entered as Reported by: LAUREN PAYNE on 12/02/16 2231 Cetirizine HCl (Zyrtec) 10 Mg Capsule, 10 MG PO DAILY, (Reported) Entered as Reported by: FLAVIA DUNHAM on 04/04/16 2340 Doxycycline Hyclate (Doxycycline Hyclate) 100 Mg Tablet, 100 MG PO BID Prescribed by: LUPE BUENO on 01/22/22 165 Fluconazole (Diflucan) 150 Mg Tablet, 150 MG PO UD Prescribed by: YADIRA FERMIN on 12/09/21 0249 Guaifenesin (Mucinex) 1,200 Mg Tab.er.12h, 1,200 MG PO DAILY, (Reported) Entered as Reported by: ANDREA BARBER on 06/12/18 0953 Hydrocodone/Acetaminophen (Hydrocodone-Acetamin 5-325 mg) 5 Mg-325 Mg Tablet, 1 TAB PO Q4H PRN for PAIN-MODERATE (5-7) Prescribed by: ASIF LEON on 07/22/21 225 Hydrocodone/Acetaminophen (Hydrocodone-Acetamin 5-325 mg) 5 Mg-325 Mg Tablet, 1 TAB PO Q6H PRN for PAIN-MODERATE (5-7) Prescribed by: LUPE BUENO on 01/22/22 1700 Hyoscyamine Sulfate (Levsin-Sl) 0.125 Mg Tab.subl, 0.125 MG SL Q4H PRN for CRAMPS Prescribed by: YADIRA FERMIN on 12/09/21 024 Insulin Glargine,Hum.rec.anlog (Lantus Solostar) 100 Unit/1 Ml Insuln.pen, 50 UNITS SC HS, (Reported) Entered as Reported by: FLAVIA DUNHAM on 07/13/152140 Metformin HCl (Metformin HCl) 1,000 Mg Tablet, 1,000 MG PO BID, (Reported) Entered as Reported by: FLAVIA DUNHAM on 07/13/152140 Naproxen (Naproxen) 500 Mg Tablet., 500 MG PO BID Prescribed by: ASIF LEON on 07/22/212258 Naproxen (Naproxen) 500 Mg Tablet., 500 MG PO BID Prescribed by: NOEL CHIN on 11/21/21 2359 Omeprazole (Omeprazole) 40 Mg Capsule., (Reported) Entered as Reported by: LAUREN PAYNE on 11/21/21 2336 Ondansetron (Ondansetron Odt) 4 Mg Tab.rapdis, 4 MG SL Q4H PRN for NAUSEA/VOMITING Prescribed by: YADIRA FERMIN on 12/09/21 024 Ondansetron HCl (Zofran) 4 Mg Tab, 4 MG PO Q4H Prescribed by: AIDEE SOUZA on 05/26/182202 Polyethylene Glycol 3350 (Miralax) 17 Gm Powd.pack, 17 GM PO DAILY Prescribed by: NOEL CHIN on 04/06/1955 Sucralfate (Carafate) 1 Gm Tablet, 1 GM PO QID Prescribed by: NOEL CHIN on 12/27/191955 Review of Systems Review of Systems Constitutional: No fever EENTM: No Symptoms Reported Respiratory: No Symptoms Reported Cardiovascular: No Symptoms Reported Gastrointestinal: See HPI Genitourinary: No Symptoms Reported Musculoskeletal: no symptoms reported Skin: no symptoms reported Psychiatric/Neurological: No Symptoms Reported Endocrine: No Symptoms Reported Hematologic/Lymphatic: No Symptoms Reported Past Emelvoo-Zudxmz-Wdpnkn Hx Patient Social History Tobacco Use?: No Use of E-Cig and/or Vaping dev: No Substance use?: No Alcohol Use?: No Pt feels they are or have been: No Immunizations Up To Date Tetanus Booster (TDap): Unknown PED Vaccines UTD: No Influenza Vaccine Up-to-Date: Yes; Up-to-Date First/Initial COVID19 Vaccinat: 03/19/20 Second COVID19 Vaccination Franco: 04/08/20 Third COVID19 Vaccination Date: 01/05/21 Seasonal Allergies Seasonal Allergies: Yes Past Medical History Surgery/Hospitalization HX: PMH;DM, GERD, HTN SURGERY;HITAL HERNIA SURGERY, GALLBLADDER, BILATERAL KNEES, AND EYESURGERY.LEFT BREAST BIOPSY 11/15/21-BENIGN Surgeries: Yes (HIATAL HERNIA REPAIR 2016; HARLEY 06/2018; BILAT KNEE SCOPES; EYE SURGERY ) Abdominal, Breast, Eye Surgery, Gallbladder, Orthopedic Respiratory: Yes Asthma Currently Using CPAP: No Currently Using BIPAP: No Cardiac: Yes High Cholesterol Neurological: No Reproductive Disorders: Yes Female Reproductive Disorders: Menstrual Problems Sexually Transmitted Disease: No HIV/AIDS: No Genitourinary: Yes Bladder Infection, UTI-Chronic Gastrointestinal: Yes (ESOPHAGEAL NARROWING; HIATAL HERNIA REPAIR 2016; CHOLECYSTECTOMY 06/2018) Gastroesophageal Reflux, Hiatal Hernia, Ulcer, Gall Bladder Disease Musculoskeletal: Yes Arthritis Endocrine: Yes Diabetes, Insulin dep HEENT: Yes (GLASSES; EYE SURGERY INFANT;EXTENSIVE DENTAL DECAY) Loss of Vision: Bilateral Hearing Impairment: Denies Cancer: No Psychosocial: No Integumentary: No Blood Disorders: No Adverse Reaction/Blood Tranf: No (N/A) Family Medical History Arthritis 19 FATHER 19 MOTHER G8 SISTER Asthma 19 FATHER 19 MOTHER G8 SISTER Cataracts 19 MOTHER Diabetes mellitus 19 FATHER 19 MOTHER G8 SISTER FH: leukemia 19 FATHER Myocardial infarction 19 MOTHER Parkinson's disease 19 FATHER Thyroid disease 19 MOTHER Asthma, CAD Over 55 Years Old, Diabetes PSH: -EYE SURGERY -BILATERAL KNEE SCOPES -HIATAL HERNIA REPAIR 07/2016 -LAP HARLEY 06/2018 -LAST COLONOSCOPY 01/08/19 Physical Exam Vital Signs Vital Signs - First Documented 06/02/22 20:53 Temp 36.7 Pulse 84 Resp 16 B/P (MAP) 177/113 (134) Pulse Ox 98 O2 Delivery Room Air Capillary Refill : Less Than 3 Seconds Height/Weight/BMI Height: 5'3.00" Weight: 178lbs. 0.0oz. 80.491870hd; 32.00 BMI Method:Stated General Appearance: WD/WN, no apparent distress HEENT: PERRL/EOMI, normal ENT inspection, pharynx normal Neck: non-tender, full range of motion, supple, normal inspection Respiratory: chest non-tender, lungs clear, normal breath sounds, no respiratory distress, no accessory muscle use Cardiovascular: regular rate, rhythm, no edema, no murmur Gastrointestinal: normal bowel sounds, soft; No distended, No guarding, No rebound; tenderness Extremities: normal range of motion, non-tender, normal inspection, no pedal edema, no calf tenderness, normal capillary refill Back: normal inspection, no CVA tenderness Neurologic/Psychiatric: no motor/sensory deficits, alert, normal mood/affect Skin: normal color, warm/dry Progress/Results/Core Measures Results/Orders Lab Results Laboratory Tests Test 06/02/22 20:59 06/02/22 21:04 Range/Units White Blood Count 7.5 4.3-11.0 10^3/uL Red Blood Count 4.47 3.80-5.11 10^6/uL Hemoglobin 13.4 11.5-16.0 g/dL Hematocrit 40 35-52 % Mean Corpuscular Volume 89 80-99 fL Mean Corpuscular Hemoglobin 30 25-34 pg Mean Corpuscular Hemoglobin Concent 34 32-36 g/dL Red Cell Distribution Width 13.4 10.0-14.5 % Platelet Count 349 130-400 10^3/uL Mean Platelet Volume 10.2 9.0-12.2 fL Immature Granulocyte % (Auto) 0 % Neutrophils (%) (Auto) 52 42-75 % Lymphocytes (%) (Auto) 39 12-44 % Monocytes (%) (Auto) 7 0-12 % Eosinophils (%) (Auto) 1 0-10 % Basophils (%) (Auto) 0 0-10 % Neutrophils # (Auto) 3.9 1.8-7.8 10^3/uL Lymphocytes # (Auto) 2.9 1.0-4.0 10^3/uL Monocytes # (Auto) 0.6 0.0-1.0 10^3/uL Eosinophils # (Auto) 0.1 0.0-0.3 10^3/uL Basophils # (Auto) 0.0 0.0-0.1 10^3/uL Immature Granulocyte # (Auto) 0.0 0.0-0.1 10^3/uL Sodium Level 140 135-145 MMOL/L Potassium Level 3.2 L 3.6-5.0 MMOL/L Chloride Level 106 98-107 MMOL/L Carbon Dioxide Level 19 L 21-32 MMOL/L Anion Gap 15 H 5-14 MMOL/L Blood Urea Nitrogen 10 7-18 MG/DL Creatinine 0.90 0.60-1.30 MG/DL Estimat Glomerular Filtration Rate 77 BUN/Creatinine Ratio 11 Glucose Level 278 H 70-105 MG/DL Calcium Level 9.4 8.5-10.1 MG/DL Corrected Calcium 9.1 8.5-10.1 MG/DL Total Bilirubin 0.3 0.1-1.0 MG/DL Aspartate Amino Transf (AST/SGOT) 16 5-34 U/L Alanine Aminotransferase (ALT/SGPT) 20 0-55 U/L Alkaline Phosphatase 98 40-136 U/L Total Protein 8.3 H 6.4-8.2 GM/DL Albumin 4.4 3.2-4.5 GM/DL Lipase 29 8-78 U/L Urine Color YELLOW Urine Clarity CLEAR Urine pH 6.0 5-9 Urine Specific Stirum 1.015 L 1.016-1.022 Urine Protein NEGATIVE NEGATIVE Urine Glucose (UA) 3+ H NEGATIVE Urine Ketones NEGATIVE NEGATIVE Urine Nitrite NEGATIVE NEGATIVE Urine Bilirubin NEGATIVE NEGATIVE Urine Urobilinogen 0.2 < = 1.0 MG/DL Urine Leukocyte Esterase NEGATIVE NEGATIVE Urine RBC (Auto) NEGATIVE NEGATIVE Urine RBC NONE /HPF Urine WBC 2-5 /HPF Urine Squamous Epithelial Cells 0-2 /HPF Urine Crystals NONE /LPF Urine Bacteria NEGATIVE /HPF Urine Casts NONE /LPF Urine Mucus NEGATIVE /LPF Urine Yeast FEW H /HPF Urine Culture Indicated YES My Orders Orders - AGUILAR ARRINGTON MD Comprehensive Metabolic Panel (06/02/22 20:59) Lipase (06/02/22 20:59) Ua Culture If Indicated (06/02/22 20:59) Urine Bedside (06/02/22 20:59) Cbc With Automated Diff (06/02/22 20:59) Ct Abdomen/Pelvis W (06/02/22 20:59) Acetaminophen Tablet (Tylenol Tablet) (06/02/22 21:00) Lidocaine 2% Viscous 15 Ml (Xylocaine Vi (06/02/22 21:00) Famotidine Tablet (Pepcid Tablet) (06/02/22 20:59) Ns Iv 1000 Ml (Sodium Chloride 0.9%) (06/02/22 20:59) Antacid Suspension (Mylanta Suspension (06/02/22 21:00) Ed Iv/Invasive Line Start (06/02/22 20:59) Promethazine Injection (Phenergan Injec (06/02/22 21:00) Urine Culture (06/02/22 21:04) Iohexol Injection (Omnipaque 350 Mg/Ml 1 (06/02/22 22:00) Sodium Chloride Flush (Catheter Flush Sy (06/02/22 22:00) Ns (Ivpb) (Sodium Chloride 0.9% Ivpb Bag (06/02/22 22:00) Medications Given in ED Current Medications Medications Dose Ordered Sig/Hunter Route Start Time Stop Time Status Last Admin Dose Admin Acetaminophen 1,000 mg ONCE ONCE PO 06/02/22 21:00 06/02/22 21:02 DC 06/02/22 21:07 1,000 MG Al Hydrox/Mg Hydrox/Simethicone 30 ml ONCE ONCE PO 06/02/22 21:00 06/02/22 21:02 DC 06/02/22 21:08 30 ML Iohexol 100 ml ONCE ONCE IV 06/02/22 22:00 06/02/22 22:01 06/02/22 21:53 80 ML Lidocaine HCl 15 ml ONCE ONCE PO 06/02/22 21:00 06/02/22 21:02 DC 06/02/22 21:08 15 ML Promethazine HCl 25 mg ONCE ONCE IVP 06/02/22 21:00 06/02/22 21:02 DC 06/02/22 21:08 25 MG Sodium Chloride 10 ml NEEDED PRN IV 06/02/22 22:00 06/02/22 21:53 10 ML Sodium Chloride 100 ml ONCE ONCE IV 06/02/22 22:00 06/02/22 22:01 06/02/22 21:53 80 ML Vital Signs/I&O 06/02/22 20:53 Temp 36.7 Pulse 84 Resp 16 B/P (MAP) 177/113 (134) Pulse Ox 98 O2 Delivery Room Air Blood Pressure Mean: 134 Progress Progress Note : Progress Note 52yoF with above history coming in due to abdominal pain. ABCs intact and VSS on presentation. Physical exam with abdominal pain globally but no signs of peritonitis. An IV was placed and she was given phenergan as well as IV fluids. Also given tylenol for pain. Labs essentially unremarkable including normal WBC, normal lipase, normal creatinine. CT abd pelvis on my interpretation with no obvious obstruction and no free air. Radiology formal read with no acute findings. Patient otherwise well-appearing and repeat abdominal exam reassuring. I believe she is otherwise stable for discharge with outpatient follow-up. She was sent home with strict return precautions. Diagnostic Imaging Diagonstic Imaging: CT (abd/pelvis) Comments NAME: LAYLA NETTLES [facility] REC#: [id number] PT STATUS: REG ER : 1970 PHYSICIAN: AGUILAR ARRINGTON MD ADMIT DATE: 06/02/22/ER Draft Date of Exam:06/02/22 CT ABDOMEN/PELVIS W EXAMINATION: CT abdomen and pelvis with intravenous contrast. TECHNIQUE: Multiple contiguous axial images were obtained through the abdomen and pelvis after the uneventful administration of intravenous contrast. All CT scans use one or more of the following dose optimizing techniques: automated exposure control, MA and/or KvP adjustment based on patient size and exam type or iterative reconstruction. HISTORY: Upper abd pain COMPARISON: 01/15/2022. FINDINGS: Lung bases: The lung bases are clear. Solid organs: The liver is normal without focal lesion. The gallbladder is surgically absent. There is no biliary ductal dilation. Pancreas is normal. Spleen is normal. Adrenal glands are normal. The kidneys are normal without hydronephrosis. Bowel: There is a small hiatal hernia. No bowel obstruction. The colon and appendix are normal. Peritoneum: There is no intraperitoneal free fluid or free air. No suspicious lymphadenopathy. Vasculature: Calcification of the aorta without aneurysm. Musculoskeletal: Degenerative changes of the spine without suspicious osseous lesion or compression fracture. Pelvis: Multiple fibroids within the uterus. The urinary bladder is normal. IMPRESSION: No acute abnormality in the abdomen or pelvis. Dictated on workstation # [id number] Dict: 06/02/222152 Trans: 06/02/222156 PJE [id number] Interpreted by: LAUREN MARIE DO Electronically signed by: Departure Impression Primary Impression: Abdominal pain Qualified Codes: R10.84 - Generalized abdominal pain Additional Impression: Gastroparesis Disposition: HOME, SELF-CARE Condition: Stable Departure-Patient Inst. Decision time for Depature: 22:15 Referrals: [facility] (PCP/Family) Primary Care Physician Patient Instructions: Gastroparesis (Delayed Gastric Emptying) Add. Discharge Instructions: We do not see anything concerning on your labs or imaging. Please follow-up with your surgeons at sooner if needed. Nausea medicines were sent to your pharmacy. Scripts Promethazine HCl (Promethazine Tablet) 25 Mg Tablet 25 MG PO Q6H PRN for NAUSEA/VOMITING for 5 Days, #20 TAB Prov: AGUILAR ARRINGTON MD 06/02/22 Work/School Note: Work Release Form Date Seen in the Emergency Department: Jun 02, 2022 Return to Work: Jun 04, 2022 Restrictions: No Restrictions AGUILAR ARRINGTON MD Jun 02, 2022 21:02
[2022-06-02 21:13] LABS: BILIRUBIN,URINE NEGATIVE (NEGATIVE); CLARITY,URINE CLEAR; COLOR,URINE YELLOW; GLUCOSE, URINE (UA) 3+ (NEGATIVE); KETONES,URINE NEGATIVE (NEGATIVE); LEUKOCYTE ESTERASE ,URINE NEGATIVE (NEGATIVE); NITRITE,URINE NEGATIVE (NEGATIVE); PROTEIN,URINE NEGATIVE (NEGATIVE)
[2022-06-02 21:13] LABS: BASOPHILS % (AUTO) 0 % (0-10); EOSINOPHILS # (AUTO) 0.1 10^3/uL (0.0-0.3); EOSINOPHILS % (AUTO) 1 % (0-10); HEMATOCRIT 40 % (35-52); HEMOGLOBIN 13.4 g/dL (11.5-16.0); LYMPHOCYTES # (AUTO) 2.9 10^3/uL (1.0-4.0); LYMPHOCYTES % (AUTO) 39 % (12-44); MEAN CORPUSCULAR HEMOGLOBIN 30 pg (25-34); MEAN CORPUSCULAR HGB CONC 34 g/dL (32-36); MEAN CORPUSCULAR VOLUME 89 fL (80-99); MEAN PLATELET VOLUME 10.2 fL (9.0-12.2); MONOCYTES # (AUTO) 0.6 10^3/uL (0.0-1.0); MONOCYTES % (AUTO) 7 % (0-12); NEUTROPHILS # (AUTO) 3.9 10^3/uL (1.8-7.8); NEUTROPHILS % (AUTO) 52 % (42-75); PLATELET COUNT 349 10^3/uL (130-400); WHITE BLOOD COUNT 7.5 10^3/uL (4.3-11.0)
[2022-06-02 21:21] LABS: ALBUMIN 4.4 GM/DL (3.2-4.5); POTASSIUM 3.2 MMOL/L (3.6-5.0)
[2022-06-02 21:22] LABS: BACTERIA,URINE NEGATIVE /HPF; SQUAMOUS EPITHELIAL CELL,UR 0-2 /HPF
[2022-06-02 21:22] LABS: CALCIUM 9.4 MG/DL (8.5-10.1)
[2022-06-02 21:23] LABS: YEAST,URINE FEW /HPF
[2022-06-02 21:23] LABS: TOTAL PROTEIN 8.3 GM/DL (6.4-8.2)
[2022-06-02 21:25] LABS: BILIRUBIN,TOTAL 0.3 MG/DL (0.1-1.0)
[2022-06-02 21:27] LABS: CREATININE SERUM 0.9 MG/DL (0.60-1.30)
--- NOTE | 2022-06-02 21:58 | Diagnostic Imaging Report ---
EXAMINATION: CT abdomen and pelvis with intravenous contrast. TECHNIQUE: Multiple contiguous axial images were obtained through the abdomen and pelvis after the uneventful administration of intravenous contrast. All CT scans use one or more of the following dose optimizing techniques: automated exposure control, MA and/or KvP adjustment based on patient size and exam type or iterative reconstruction. HISTORY: Upper abd pain COMPARISON: 01/15/2022. FINDINGS: Lung bases: The lung bases are clear. Solid organs: The liver is normal without focal lesion. The gallbladder is surgically absent. There is no biliary ductal dilation. Pancreas is normal. Spleen is normal. Adrenal glands are normal. The kidneys are normal without hydronephrosis. Bowel: There is a small hiatal hernia. No bowel obstruction. The colon and appendix are normal. Peritoneum: There is no intraperitoneal free fluid or free air. No suspicious lymphadenopathy. Vasculature: Calcification of the aorta without aneurysm. Musculoskeletal: Degenerative changes of the spine without suspicious osseous lesion or compression fracture. Pelvis: Multiple fibroids within the uterus. The urinary bladder is normal. IMPRESSION: No acute abnormality in the abdomen or pelvis. Dictated by: Dictated on workstation # [id number]
[2022-06-02] MEDS ORDERED: NS 100 ML (IVPB) BAG IV ONE (22:00)
[2022-06-02] MEDS ORDERED: CATHETER FLUSH 10 ML SYR IV PRN (22:00)
[2022-06-02] MEDS ORDERED: IOHEXOL 350 MG/ML 100 ML (OMNIPAQUE 350) VIAL IV ONE (22:00)
[2022-06-02] MEDS ORDERED: PROM25TA14 PO (22:10)
[2022-06-02] MEDS ORDERED: HYDROcodone/APAP 5 MG/325 MG (LORTAB) TAB PO ONE (22:15)
== END 2022-06-02 22:20 | disposition home or self-care (01) ==
LOC: EDUNIT# 20:48 → ER 20:49
DX: E11.43 Type 2 diabetes mellitus with diabetic autonomic (poly)neuropathy (principal); K31.84 Gastroparesis; Z90.49 Acquired absence of other specified parts of digestive tract
CPT/HCPCS: 36415; 74177; 80053; 81000; 83690; 84703; 85025; 87088

== ENCOUNTER 2022-07-21 11:15 | Emergency (ER) | payer OTHER ==
[~2022-07-21] VITALS: Ht 160 cm; Wt 84.0 kg
[~2022-07-21 11:15] MED LIST changes: +PROM25TA14 PO
[2022-07-21] MEDS ORDERED: LIDOCAINE 4% (SALONPAS) PATCH TOP ONE (12:00)
[2022-07-21] MEDS ORDERED: ORPHENADRINE 60 MG/2 ML (NORFLEX) AMP (ED ONLY) IM ONE (12:00)
[2022-07-21] MEDS ORDERED: KETOROLAC 60 MG/2 ML VIAL IM ONE (12:00)
--- NOTE | 2022-07-21 12:09 | ED Lower Extremity ---
General Chief Complaint: Lower Extremity Stated Complaint: RIGHT LEG PAIN/NUMBNESS Nursing Triage Note: PT AMB TO TRIAGE WITH C/O R LEG AND R BACK PAIN SINCE SATURDAY. PT STATES SHE HAD HIATAL HERNIA SURG AT ON THE THIRD. PT TOOK TYLENOL 0900 THIS MORNING Source: patient Exam Limitations: no limitations History of Present Illness Date Seen by Provider: July 21, 2022 Time Seen by Provider: 11:40 Initial Comments 52-year-old female presents to the ED with complaints of right lower back/hip pain that radiates down her leg to her toes. She states that this pain started on , 07/18/2022. She reports intermittent numbness of her entire leg. States that it alternates between numbness and pain. On 07/11/2022 she had a hiatal hernia repair and gastric sleeve placed due to gastroparesis at . She reports that since the surgery she has been incontinent of urine. She denies bowel incontinence. She denies fevers, abdominal pain, nausea, vomiting. She reports an episode of diarrhea today. She reports intermittent chest pain and shortness of air since leaving the hospital after surgery. She states that she was diagnosed with pneumonia after her surgery and was treated while in the hospital. She is not currently on antibiotic. She denies any chest pain today. Past medical history includes diabetes, asthma, scoliosis. 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) Patient Home Medication List Home Medication List Reviewed: Yes Albuterol Sulfate (Ventolin Hfa) 1 Puff Puff, 2 PUFF IH Q6H PRN for SHORTNESS OF BREATH, (Reported) Entered as Reported by: LAUREN PAYNE on 12/02/161 Baclofen (Baclofen) 10 Mg Tablet, 10 MG PO TID Prescribed by: Luana Fields on 07/21/22 1536 Cetirizine HCl (Zyrtec) 10 Mg Capsule, 10 MG PO DAILY, (Reported) Entered as Reported by: FLAVIA DUNHAM on 04/04/16 2340 Doxycycline Hyclate (Doxycycline Hyclate) 100 Mg Tablet, 100 MG PO BID Prescribed by: LUPE BUENO on 01/22/22 1652 Fluconazole (Diflucan) 150 Mg Tablet, 150 MG PO UD Prescribed by: YADIRA FERMIN on 12/09/21 0249 Guaifenesin (Mucinex) 1,200 Mg Tab.er.12h, 1,200 MG PO DAILY, (Reported) Entered as Reported by: ANDREA BARBER on 06/12/18 0953 Hydrocodone/Acetaminophen (Hydrocodone-Acetamin 5-325 mg) 5 Mg-325 Mg Tablet, 1 TAB PO Q4H PRN for PAIN-MODERATE (5-7) Prescribed by: ASIF LEON on 07/22/212258 Hydrocodone/Acetaminophen (Hydrocodone-Acetamin 5-325 mg) 5 Mg-325 Mg Tablet, 1 TAB PO Q6H PRN for PAIN-MODERATE (5-7) Prescribed by: LUPE BUENO on 01/22/22 1700 Hyoscyamine Sulfate (Levsin-Sl) 0.125 Mg Tab.subl, 0.125 MG SL Q4H PRN for CRAMPS Prescribed by: YADIRA FERMIN on 12/09/21 024 Insulin Glargine,Hum.rec.anlog (Lantus Solostar) 100 Unit/1 Ml Insuln.pen, 50 UNITS SC HS, (Reported) Entered as Reported by: FLAVIA DUNHAM on 07/13/152140 Lidocaine (Salonpas) 4 % Adh..patch, 1 EACH TP DAILY Prescribed by: Luana Fields on 07/21/22 1536 Metformin HCl (Metformin HCl) 1,000 Mg Tablet, 1,000 MG PO BID, (Reported) Entered as Reported by: FLAVIA DUNHAM on 07/13/152140 Naproxen (Naproxen) 500 Mg Tablet., 500 MG PO BID Prescribed by: ASIF LEON on 07/22/212258 Naproxen (Naproxen) 500 Mg Tablet.dr, 500 MG PO BID Prescribed by: NOEL CHIN on 11/21/21 6879 Omeprazole (Omeprazole) 40 Mg Capsule., (Reported) Entered as Reported by: LAUREN PAYNE on 11/21/21 2336 Ondansetron (Ondansetron Odt) 4 Mg Tab.rapdis, 4 MG SL Q4H PRN for NAUSEA/VOMITING Prescribed by: YADIRA FERMIN on 12/09/21 0249 Ondansetron HCl (Zofran) 4 Mg Tab, 4 MG PO Q4H Prescribed by: AIDEE SOUZA on 05/26/18 220 Polyethylene Glycol 3350 (Miralax) 17 Gm Powd.pack, 17 GM PO DAILY Prescribed by: NOEL CHIN on 04/06/19 0056 Promethazine HCl (Promethazine Tablet) 25 Mg Tablet, 25 MG PO Q6H PRN for NAUSEA/VOMITING Prescribed by: AGUILAR ARRINGTON on 06/02/222209 Sucralfate (Carafate) 1 Gm Tablet, 1 GM PO QID Prescribed by: NOEL CHIN on 12/27/191955 Review of Systems Constitutional: no symptoms reported Past Mllazxh-Svjdxe-Kpxanm Hx Patient Social History Tobacco Use?: No Substance use?: No Alcohol Use?: No Pt feels they are or have been: No Immunizations Up To Date Tetanus Booster (TDap): Unknown PED Vaccines UTD: No First/Initial COVID19 Vaccinat: 03/19/20 Second COVID19 Vaccination Franco: 04/08/20 Third COVID19 Vaccination Date: 01/05/21 Seasonal Allergies Seasonal Allergies: Yes Past Medical History Surgery/Hospitalization HX: PMH;DM, GERD, HTN SURGERY;HITAL HERNIA SURGERY, GALLBLADDER, BILATERAL KNEES, AND EYESURGERY.LEFT BREAST BIOPSY 11/15/21-BENIGN HIATAL HERNIA, GASTRIC SLEEVE FOR GASTROPROERSIS Surgeries: Yes (HIATAL HERNIA REPAIR 2016; HARLEY 06/2018; BILAT KNEE SCOPES; EYE SURGERY ) Abdominal, Breast, Eye Surgery, Gallbladder, Orthopedic Respiratory: Yes Asthma Currently Using CPAP: No Currently Using BIPAP: No Cardiac: Yes High Cholesterol Neurological: No Reproductive Disorders: Yes Female Reproductive Disorders: Menstrual Problems Sexually Transmitted Disease: No HIV/AIDS: No Genitourinary: Yes Bladder Infection, UTI-Chronic Gastrointestinal: Yes (ESOPHAGEAL NARROWING; HIATAL HERNIA REPAIR 2016; CHOLECYSTECTOMY 06/2018) Gastroesophageal Reflux, Hiatal Hernia, Ulcer, Gall Bladder Disease Musculoskeletal: Yes Arthritis Endocrine: Yes Diabetes, Insulin dep HEENT: Yes (GLASSES; EYE SURGERY INFANT;EXTENSIVE DENTAL DECAY) Loss of Vision: Bilateral Hearing Impairment: Denies Cancer: No Psychosocial: No Integumentary: No Blood Disorders: No Adverse Reaction/Blood Tranf: No (N/A) Family Medical History Arthritis 19 FATHER 19 MOTHER G8 SISTER Asthma 19 FATHER 19 MOTHER G8 SISTER Cataracts 19 MOTHER Diabetes mellitus 19 FATHER 19 MOTHER G8 SISTER FH: leukemia 19 FATHER Myocardial infarction 19 MOTHER Parkinson's disease 19 FATHER Thyroid disease 19 MOTHER Asthma, CAD Over 55 Years Old, Diabetes PSH: -EYE SURGERY -BILATERAL KNEE SCOPES -HIATAL HERNIA REPAIR 07/2016 -LAP HARLEY 06/2018 -LAST COLONOSCOPY 01/08/19 Physical Exam Vital Signs Vital Signs - First Documented 07/21/22 07/21/22 11:28 15:50 Temp 36.4 Pulse 75 Resp 14 B/P (MAP) 151/88 (109) Pulse Ox 94 O2 Delivery Room Air Capillary Refill : Height, Weight, BMI Height: 5'3.00" Weight: 178lbs. 0.0oz. 80.790725wh; 32.00 BMI Method:Stated General Appearance: WD/WN, no apparent distress Neck: supple, normal inspection Cardiovascular: regular rate, rhythm Respiratory: lungs clear, normal breath sounds, no respiratory distress, no accessory muscle use Back: vertebral tenderness (Lumbar), other (Muscle tenderness in left thoracic and right lumbar region) Legs: bilateral leg normal inspection Neurologic/Psychiatric: alert, normal mood/affect Skin: normal color, warm/dry Progress/Results/Core Measures Results/Orders Lab Results Laboratory Tests Test 07/21/22 13:28 07/21/22 14:02 07/21/22 14:12 07/21/22 15:26 Range/Units Urine Color YELLOW Urine Clarity CLEAR Urine pH 5.0 5-9 Urine Specific [place] 1.020 1.016-1.022 Urine Protein TRACE H NEGATIVE Urine Glucose (UA) 2+ H NEGATIVE Urine Ketones 1+ H NEGATIVE Urine Nitrite NEGATIVE NEGATIVE Urine Bilirubin 1+ H NEGATIVE Urine Urobilinogen 1.0 < = 1.0 MG/DL Urine Leukocyte Esterase NEGATIVE NEGATIVE Urine RBC (Auto) NEGATIVE NEGATIVE Urine RBC NONE /HPF Urine WBC RARE /HPF Urine Squamous Epithelial Cells 2-5 /HPF Urine Crystals NONE /LPF Urine Bacteria NEGATIVE /HPF Urine Casts PRESENT /LPF Urine Hyaline Casts RARE /LPF Urine Mucus NEGATIVE /LPF Urine Culture Indicated NO Glucometer 250 H 256 H 70-110 MG/DL White Blood Count 7.1 4.3-11.0 10^3/uL Red Blood Count 4.57 3.80-5.11 10^6/uL Hemoglobin 13.6 11.5-16.0 g/dL Hematocrit 40 35-52 % Mean Corpuscular Volume 88 80-99 fL Mean Corpuscular Hemoglobin 30 25-34 pg Mean Corpuscular Hemoglobin Concent 34 32-36 g/dL Red Cell Distribution Width 13.2 10.0-14.5 % Platelet Count 534 H 130-400 10^3/uL Mean Platelet Volume 9.4 9.0-12.2 fL Immature Granulocyte % (Auto) 0 % Neutrophils (%) (Auto) 78 H 42-75 % Lymphocytes (%) (Auto) 15 12-44 % Monocytes (%) (Auto) 3 0-12 % Eosinophils (%) (Auto) 3 0-10 % Basophils (%) (Auto) 1 0-10 % Neutrophils # (Auto) 5.6 1.8-7.8 10^3/uL Lymphocytes # (Auto) 1.0 1.0-4.0 10^3/uL Monocytes # (Auto) 0.2 0.0-1.0 10^3/uL Eosinophils # (Auto) 0.2 0.0-0.3 10^3/uL Basophils # (Auto) 0.1 0.0-0.1 10^3/uL Immature Granulocyte # (Auto) 0.0 0.0-0.1 10^3/uL Venous Blood pH 7.37 7.31-7.41 Venous Blood Partial Pressure CO2 43 40-52 MMHG Venous Blood HCO3 25 22-28 MMOL/L Sodium Level 138 135-145 MMOL/L Potassium Level 3.8 3.6-5.0 MMOL/L Chloride Level 103 98-107 MMOL/L Carbon Dioxide Level 20 L 21-32 MMOL/L Anion Gap 15 H 5-14 MMOL/L Blood Urea Nitrogen 6 L 7-18 MG/DL Creatinine 0.80 0.60-1.30 MG/DL Estimat Glomerular Filtration Rate 89 BUN/Creatinine Ratio 8 Glucose Level 273 H 70-105 MG/DL Calcium Level 9.7 8.5-10.1 MG/DL Corrected Calcium 9.8 8.5-10.1 MG/DL Total Bilirubin 0.3 0.1-1.0 MG/DL Aspartate Amino Transf (AST/SGOT) 13 5-34 U/L Alanine Aminotransferase (ALT/SGPT) 24 0-55 U/L Alkaline Phosphatase 129 40-136 U/L Total Protein 8.1 6.4-8.2 GM/DL Albumin 3.9 3.2-4.5 GM/DL Beta-Hydroxybutyrate (Chem panel) 0.53 H 0.00-0.27 MMOL/L My Orders Orders - LUANA FIELDS APRN Urinalysis (07/21/22 11:57) Ketorolac Injection (Toradol Injection) (07/21/22 12:00) Orphenadrine Inj (Ed Only) (Norflex Inje (07/21/22 12:00) Dexamethasone Injection (Decadron Inje (07/21/22 12:00) Lidocaine 4% Patch (Salonpas 4% Patch) (07/21/22 12:00) Ct Thoracic/Lumbar Spine Wo (07/21/22 12:02) Accucheck Stat ONCE (07/21/22 13:53) Cbc With Automated Diff (07/21/22 14:03) Comprehensive Metabolic Panel (07/21/22 14:03) Venous Blood Gas (07/21/22 14:03) Beta Hydroxybutyrate (07/21/22 14:03) Ed Iv/Invasive Line Start (07/21/22 14:03) Ns Iv 1000 Ml (Sodium Chloride 0.9%) (07/21/22 14:15) Fentanyl Inj (Sublimaze Injection) (07/21/22 14:15) Accucheck Stat ONCE (07/21/22 15:11) Medications Given in ED Current Medications Medications Dose Ordered Sig/Hunter Route Start Time Stop Time Status Last Admin Dose Admin Dexamethasone Sodium Phosphate 8 mg ONCE ONCE IM 07/21/22 12:00 07/21/22 12:01 DC 07/21/22 12:16 8 MG Fentanyl Citrate 50 mcg ONCE ONCE IVP 07/21/22 14:15 07/21/22 14:16 DC 07/21/22 14:22 50 MCG Ketorolac Tromethamine 30 mg ONCE ONCE IM 07/21/22 12:00 07/21/22 12:01 DC 07/21/22 12:17 30 MG Lidocaine 1 ea ONCE ONCE TOP 07/21/22 12:00 07/21/22 12:01 DC 07/21/22 12:17 1 EA Orphenadrine Citrate 60 mg ONCE ONCE IM 07/21/22 12:00 07/21/22 12:01 DC 07/21/22 12:16 60 MG Vital Signs/I&O 07/21/22 07/21/22 11:28 15:50 Temp 36.4 Pulse 75 60 Resp 14 18 B/P (MAP) 151/88 (109) 166/95 Pulse Ox 94 O2 Delivery Room Air Blood Pressure Mean: 109 Progress Progress Note : Progress Note Patient seen and evaluated, resting in bed, no acute distress. Pain is likely sciatic nerve pain possibly due to her scoliosis. I am less concerned for cauda equina syndrome since patient's urinary incontinence has been going on since well before her back pain started, and she has normal bowel function, is able to tell when she needs to have a bowel movement. I ordered a CT of her thoracic and lumbar spine. Urinalysis for her urinary incontinence. I also ordered Toradol, Norflex, Decadron, and a lidocaine patch. Patient was able to feel when she had to urinate. Urinalysis showed 2+ glucose, 1+ ketones. Accu-Chek 250. Labs ordered including CBC, CMP, VBG, beta hydroxybutyrate. IV fluids ordered. CT reviewed. It shows degenerative changes in the thoracic and lumbar spine. There is foraminal stenosis at L5-S1 on the right side. This is likely the cause of her sciatic nerve pain. Fentanyl ordered for continued pain. Labs reviewed. CBC shows elevated platelets 534. Patient states her platelets were elevated prior to her surgery. CMP shows slightly decreased CO2 20, slightly elevated anion gap 15, glucose 273, beta hydroxybutyrate 0.53. pH 0.37. Not concerned for DKA. Results discussed with patient. Will discharge with baclofen and lidocaine patch. Patient states she cannot take ibuprofen or steroids due to her surgery. Discharge instructions return precautions provided. Diagnostic Imaging Diagonstic Imaging: CT Plain Films/CT/US/NM/MRI: other (Lumbar and thoracic spine) Comments [facility] [place], [place] NAME: LAYLA NETTLES [facility] REC#: [id number] PT STATUS: REG ER : 1970 PHYSICIAN: LUANA FIELDS APRN ADMIT DATE: 07/21/22/ER Signed Date of Exam:07/21/22 CT THORACIC/LUMBAR SPINE WO PROCEDURE: CT thoracic and lumbar spine without contrast. TECHNIQUE: Multiple contiguous axial images were obtained through the thoracic and lumbar spine without the use of intravenous contrast. Sagittal and coronal reformations were then performed. All CT scans use one or more of the following dose optimizing techniques: automated exposure control, MA and/or KvP adjustment based on a patient size and exam type, or iterative reconstruction. INDICATION: Back pain COMPARISON: CT of the abdomen and pelvis from 06/02/2022 FINDINGS: THORACIC SPINE: There is mildly exaggerated kyphosis of the thoracic spine. There is no spondylolisthesis. Alignment is otherwise normal. There are mild degenerative changes throughout the thoracic spine. No acute fracture is seen. No bony fragments or hyperdense fluid collections are seen in the spinal canal. There are small bilateral pleural effusions, left greater than right. There is atelectasis in the lung bases. Postsurgical changes are seen in the abdomen. LUMBAR SPINE: Alignment of the lumbar spine appears normal with no spondylolisthesis. Vertebral body heights are preserved. Disc heights are generally preserved. There is facet arthropathy at L4-L5 and L5-S1. No acute fracture is seen. There does appear to be foraminal stenosis at L5-S1 on the right and L4-L5 on the left. There are degenerative changes in the sacroiliac joints bilaterally. IMPRESSION: 1. Degenerative changes in the thoracic and lumbar spine with no acute osseous abnormality seen. 2. Small bilateral pleural effusions, left greater than right. Dictated by: Dictated on workstation # [id number] Dict: 07/21/22 1233 Trans: 07/21/22 1434 [facility] [id number] Interpreted by: XIOMARA MARTIN MD Electronically signed by: XIOMARA MARTIN MD 07/21/22 1434 Departure Impression Primary Impression: Sciatic nerve pain Additional Impressions: Hyperglycemia Incontinence of urine Elevated platelet count Disposition: HOME, SELF-CARE Condition: Stable Departure-Patient Inst. Decision time for Depature: 15:33 Referrals: [facility] (PCP/Family) Primary Care Physician Patient Instructions: Sciatica ED Add. Discharge Instructions: Call your primary care provider on Saturday to schedule follow-up appointment for next week. Your platelet count on your blood work was slightly elevated, discussed this with your primary care provider. Your urinary incontinence may be related to your liquid diet or your elevated blood sugar. Take baclofen as needed for muscle pain. Use lidocaine patches for pain. You may wear 1 for 12 hours, then you must remove it for 12 hours before placing another one. Return for inability to walk, worsening pain, bowel incontinence, or any other new, concerning, or worsening symptoms. All discharge instructions reviewed with patient and/or family. Voiced understanding. Scripts Lidocaine (Salonpas) 4 % Adh..patch 1 EACH TP DAILY, #14 PATCH 0 Refills Wear for 12 hours, remove for 12 hours prior to placing a new one Prov: LUANA FIELDS APRN 07/21/22 Baclofen (Baclofen) 10 Mg Tablet 10 MG PO TID, #21 TAB 0 Refills Prov: LUANA FIELDS APRN 07/21/22 LUANA FIELDS APRN July 21, 2022 12:09
--- NOTE | 2022-07-21 12:46 | Diagnostic Imaging Report ---
PROCEDURE: CT thoracic and lumbar spine without contrast. TECHNIQUE: Multiple contiguous axial images were obtained through the thoracic and lumbar spine without the use of intravenous contrast. Sagittal and coronal reformations were then performed. All CT scans use one or more of the following dose optimizing techniques: automated exposure control, MA and/or KvP adjustment based on a patient size and exam type, or iterative reconstruction. INDICATION: Back pain COMPARISON: CT of the abdomen and pelvis from 06/02/2022 FINDINGS: THORACIC SPINE: There is mildly exaggerated kyphosis of the thoracic spine. There is no spondylolisthesis. Alignment is otherwise normal. There are mild degenerative changes throughout the thoracic spine. No acute fracture is seen. No bony fragments or hyperdense fluid collections are seen in the spinal canal. There are small bilateral pleural effusions, left greater than right. There is atelectasis in the lung bases. Postsurgical changes are seen in the abdomen. LUMBAR SPINE: Alignment of the lumbar spine appears normal with no spondylolisthesis. Vertebral body heights are preserved. Disc heights are generally preserved. There is facet arthropathy at L4-L5 and L5-S1. No acute fracture is seen. There does appear to be foraminal stenosis at L5-S1 on the right and L4-L5 on the left. There are degenerative changes in the sacroiliac joints bilaterally. IMPRESSION: 1. Degenerative changes in the thoracic and lumbar spine with no acute osseous abnormality seen. 2. Small bilateral pleural effusions, left greater than right. Dictated by: Dictated on workstation # [id number]
[2022-07-21 13:38] LABS: CLARITY,URINE CLEAR; COLOR,URINE YELLOW; GLUCOSE, URINE (UA) 2+ (NEGATIVE); KETONES,URINE 1+ (NEGATIVE); LEUKOCYTE ESTERASE ,URINE NEGATIVE (NEGATIVE); NITRITE,URINE NEGATIVE (NEGATIVE); PROTEIN,URINE TRACE (NEGATIVE)
[2022-07-21 13:45] LABS: BACTERIA,URINE NEGATIVE /HPF; BILIRUBIN,URINE 1+ (NEGATIVE); HYALINE CASTS, URINE RARE /LPF; WBC,URINE RARE /HPF
[2022-07-21] MEDS ORDERED: fentaNYL INJ 100 MCG/2 ML AMP IVP ONE (14:15)
[2022-07-21] MEDS ORDERED: NS IV 1000 ML 1,000 ML IV SCH (14:15)
[2022-07-21 14:19] LABS: BASOPHILS # (AUTO) 0.1 10^3/uL (0.0-0.1); BASOPHILS % (AUTO) 1 % (0-10); EOSINOPHILS # (AUTO) 0.2 10^3/uL (0.0-0.3); EOSINOPHILS % (AUTO) 3 % (0-10); HEMATOCRIT 40 % (35-52); HEMOGLOBIN 13.6 g/dL (11.5-16.0); LYMPHOCYTES % (AUTO) 15 % (12-44); MEAN CORPUSCULAR HEMOGLOBIN 30 pg (25-34); MEAN CORPUSCULAR HGB CONC 34 g/dL (32-36); MEAN CORPUSCULAR VOLUME 88 fL (80-99); MEAN PLATELET VOLUME 9.4 fL (9.0-12.2); MONOCYTES # (AUTO) 0.2 10^3/uL (0.0-1.0); MONOCYTES % (AUTO) 3 % (0-12); NEUTROPHILS # (AUTO) 5.6 10^3/uL (1.8-7.8); NEUTROPHILS % (AUTO) 78 % (42-75); PLATELET COUNT 534 10^3/uL (130-400); WHITE BLOOD COUNT 7.1 10^3/uL (4.3-11.0)
[2022-07-21 14:29] LABS: ALBUMIN 3.9 GM/DL (3.2-4.5); POTASSIUM 3.8 MMOL/L (3.6-5.0)
[2022-07-21 14:31] LABS: CALCIUM 9.7 MG/DL (8.5-10.1)
[2022-07-21 14:32] LABS: TOTAL PROTEIN 8.1 GM/DL (6.4-8.2)
[2022-07-21 14:34] LABS: BILIRUBIN,TOTAL 0.3 MG/DL (0.1-1.0)
[2022-07-21 14:35] LABS: CREATININE SERUM 0.8 MG/DL (0.60-1.30)
[2022-07-21] MEDS ORDERED: METH4TAB10 PO (15:36)
[2022-07-21] MEDS ORDERED: LIDO1ADH74 TP (15:36)
[2022-07-21] MEDS ORDERED: BACL10TA PO (15:36)
[2022-07-21 15:50] VITALS: BP 166/95
== END 2022-07-21 15:50 | disposition home or self-care (01) ==
LOC: EDUNIT# 11:15 → ER 11:17
DX: M54.41 Lumbago with sciatica, right side (principal); E11.65 Type 2 diabetes mellitus with hyperglycemia; E87.20 Acidosis, unspecified; R32 Unspecified urinary incontinence; D75.839 Thrombocytosis, unspecified; Z79.4 Long term (current) use of insulin
CPT/HCPCS: 36415; 72128; 72131; 80053; 81000; 82010; 82805; 82947; 85025

== ENCOUNTER 2022-08-09 22:35 | Emergency (ER) | payer OTHER ==
[~2022-08-09 22:35] MED LIST changes: +BACL10TA PO; +LIDO1ADH74 TP; +METH4TAB10 PO
[2022-08-09] MEDS ORDERED: LACTATED RINGERS 1,000 ML IV ONE (23:00)
[2022-08-09] MEDS ORDERED: ONDANSETRON 4 MG/2 ML (SDV) Z0FRAN IVP ONE (23:00)
--- NOTE | 2022-08-09 23:01 | ED GI ---
General Chief Complaint: Abdominal/GI Problems Stated Complaint: STOMACH ISSUES Nursing Triage Note: PT PRESENTS TO ED WITH C/O ABDOMINAL PAIN AND DECREASED APPETITE. PT SEEN AT [facility] ON SATURDAY AND WAS DIAGNOSED WITH UTI. ONE MONTH AGO, PT HAD HIATAL HERNIA SURGERY AND THEY RESECTED PART OF HER STOMACH AND COLON D/T GASTROPERESIS. PT HASN'T HAD A BM FOR 5 DAYS. Source of Information: Patient History of Present Illness Date Seen by Provider: Aug 09, 2022 Time Seen by Provider: 22:50 Initial Comments PT ARRIVES VIA POV FROM HOME PT HAD SURGERY AT ON 07/11/22--PT STATES SHE HAD PART OF STOMACH AND COLON REMOVED/RESECTED DUE TO GASTROPARESIS, AND HIATAL HERNIA REPAIRED SHE HAD A ROUTINE FOLLOW UP APPOINTMENT WITH [facility]ST SATURDAY, AND HAS ANOTHER ONE SCHEDULED FOR NEXT SATURDAY SHE HAD A ROUTINE APPOINTMENT WITH [facility] ON SATURDAY AND WAS DX WITH UTI AND GIVEN RX FOR CIPRO. SHE HAD NOT BEEN HAVING ANY URINARY SYMPTOMS AND HAS BEEN VOIDING A NORMAL AMOUNT. SHE BEGAN TO HAVE SOME GENERALIZED ABDOMINAL PAIN AND DECREASED APPETITE YESTERDAY. SHE HAS HAD NAUSEA, BUT NO VOMITING SINCE YESTERDAY SHE HAS NOT HAD A BM SINCE SATURDAY, BUT IS PASSING GAS. SHE HAS BEEN "COUGHING UP SPIT" BUT NO SHORTNESS OF BREATH OR CHEST PAIN OR PAIN WITH BREATHING NO BACK PAIN NO FEVER AT ANY TIME. STATES HER TEMP HAS BEEN LOW--94-95 DEGREES. SHE HAS NOT TAKEN ANYTHING FOR PAIN--STATES SHE DOES HAVE OXYCODONE AT HOME, BUT HAS NOT BEEN TAKING IT SHE ALSO HAS ZOFRAN ODT AT HOME, BUT HAS NOT TAKEN ANY--DOES NOT LIKE THE TASTE SHE HAS NOT TAKEN HER EVENING MEDICATIONS SHE HAS NOT TAKEN ANYTHING FOR HER SYMPTOMS SYMPTOMS ARE NO DIFFERENT TONIGHT IN ANY WAY SHE HAS NOT SOUGHT CARE FOR THIS PROBLEM UNTIL TONIGHT. PCP: [facility] 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: Hand clerk analyst (Allergy, Unknown, 12/27/21) Patient Home Medication List Home Medication List Reviewed: Yes Albuterol Sulfate (Ventolin Hfa) 1 Puff Puff, 2 PUFF IH Q6H PRN for SHORTNESS OF BREATH, (Reported) Entered as Reported by: LAUREN PAYNE on 12/02/16 2231 Baclofen (Baclofen) 10 Mg Tablet, 10 MG PO TID Prescribed by: Luana Larkin on 07/21/22 1536 Cetirizine HCl (Zyrtec) 10 Mg Capsule, 10 MG PO DAILY, (Reported) Entered as Reported by: FLAVIA DUNHAM on 04/04/16 2340 Dicyclomine HCl (Dicyclomine HCl) 20 Mg Tablet, 20 MG PO Q6H Prescribed by: NOEL CHIN on 08/10/22 0112 Doxycycline Hyclate (Doxycycline Hyclate) 100 Mg Tablet, 100 MG PO BID Prescribed by: LUPE BUENO on 01/22/22 165 Fluconazole (Diflucan) 150 Mg Tablet, 150 MG PO UD Prescribed by: YADIRA FERMIN on 12/09/21 0249 Guaifenesin (Mucinex) 1,200 Mg Tab.er.12h, 1,200 MG PO DAILY, (Reported) Entered as Reported by: ANDREA BARBER on 06/12/18 0953 Hydrocodone/Acetaminophen (Hydrocodone-Acetamin 5-325 mg) 5 Mg-325 Mg Tablet, 1 TAB PO Q4H PRN for PAIN-MODERATE (5-7) Prescribed by: ASIF LEON on 07/22/21 2259 Hydrocodone/Acetaminophen (Hydrocodone-Acetamin 5-325 mg) 5 Mg-325 Mg Tablet, 1 TAB PO Q6H PRN for PAIN-MODERATE (5-7) Prescribed by: LUPE BUENO on 01/22/22 1700 Hyoscyamine Sulfate (Levsin-Sl) 0.125 Mg Tab.subl, 0.125 MG SL Q4H PRN for CRAMPS Prescribed by: YADIRA FERMIN on 12/09/21 0249 Insulin Glargine,Hum.rec.anlog (Lantus Solostar) 100 Unit/1 Ml Insuln.pen, 50 UNITS SC HS, (Reported) Entered as Reported by: FLAVIA DUNHAM on 07/13/15 2141 Lidocaine (Salonpas) 4 % Adh..patch, 1 EACH TP DAILY Prescribed by: Luana Larkin on 07/21/22 1536 Metformin HCl (Metformin HCl) 1,000 Mg Tablet, 1,000 MG PO BID, (Reported) Entered as Reported by: FLAVIA DUNHAM on 07/13/15 2141 Naproxen (Naproxen) 500 Mg Tablet., 500 MG PO BID Prescribed by: ASIF LEON on 07/22/21 2259 Naproxen (Naproxen) 500 Mg Tablet.dr, 500 MG PO BID Prescribed by: NOEL CHIN on 11/21/21 2359 Omeprazole (Omeprazole) 40 Mg Capsule.dr, (Reported) Entered as Reported by: LAUREN PAYNE on 11/21/21 2336 Ondansetron (Ondansetron Odt) 4 Mg Tab.rapdis, 4 MG SL Q4H PRN for NAUSEA/VOMITING Prescribed by: YADIRA FERMIN on 12/09/21 0249 Ondansetron HCl (Zofran) 4 Mg Tab, 4 MG PO Q4H Prescribed by: AIDEE SOUZA on 05/26/18 220 Ondansetron HCl (Ondansetron HCl) 8 Mg Tablet, 8 MG PO Q6H PRN for NAUSEA/VOMITING Prescribed by: NOEL CHIN on 08/10/22 011 Pantoprazole Sodium (Protonix) 40 Mg Tablet.dr, 40 MG PO DAILY Prescribed by: NOEL CHIN on 08/10/22 0112 Polyethylene Glycol 3350 (Miralax) 17 Gm Powd.pack, 17 GM PO DAILY Prescribed by: NOEL CHIN on 04/06/19 0056 Promethazine HCl (Promethazine Tablet) 25 Mg Tablet, 25 MG PO Q6H PRN for NAUSEA/VOMITING Prescribed by: AGUILAR ARRINGTON on 06/02/22 221 Sucralfate (Carafate) 1 Gm Tablet, 1 GM PO QID Prescribed by: NOEL CHIN on 12/27/191955 Review of Systems Review of Systems Constitutional: see HPI; No dizziness; malaise, weakness EENTM: No Symptoms Reported Respiratory: See HPI; Denies Shortness of Air, Denies Wheezing Cardiovascular: No Symptoms Reported; Denies Chest Pain, Denies Edema, Denies Lightheadedness, Denies Palpitations, Denies Syncope Gastrointestinal: See HPI, Abdominal Pain, Constipated; Denies Diarrhea; Nausea, Poor Appetite, Poor Fluid Intake; Denies Vomiting Genitourinary: See HPI Past Zyiqqcw-Geveay-Xatzaj Hx Patient Social History Tobacco Use?: No Substance use?: No Alcohol Use?: No Pt feels they are or have been: No Immunizations Up To Date Tetanus Booster (TDap): Unknown PED Vaccines UTD: No First/Initial COVID19 Vaccinat: 03/19/20 Second COVID19 Vaccination Franco: 04/08/20 Third COVID19 Vaccination Date: 01/05/21 Seasonal Allergies Seasonal Allergies: Yes Past Medical History Surgery/Hospitalization HX: PMH;DM, GERD, HTN SURGERY;HITAL HERNIA SURGERY, GALLBLADDER, BILATERAL KNEES, AND EYESURGERY.LEFT BREAST BIOPSY 11/15/21-BENIGN HIATAL HERNIA, GASTRIC SLEEVE AND INTESTIONAL RESECTION FOR GASTROPARESIS DONE AT 07/11/22 Surgeries: Yes (HIATAL HERNIA REPAIR 2016; [facility] 06/2018; BILAT KNEE SCOPES; EYE SURGERY ) Abdominal, Breast, Eye Surgery, Gallbladder, Orthopedic Respiratory: Yes Asthma Currently Using CPAP: No Currently Using BIPAP: No Cardiac: Yes High Cholesterol Neurological: No Reproductive Disorders: Yes Female Reproductive Disorders: Menstrual Problems Sexually Transmitted Disease: No HIV/AIDS: No Genitourinary: Yes Bladder Infection, UTI-Chronic Gastrointestinal: Yes (ESOPHAGEAL NARROWING;HIATAL HERNIA REPAIR 2016;[facility] 06/2018;GASTROPARESIS) Gastroesophageal Reflux, Hiatal Hernia, Ulcer, Gall Bladder Disease Musculoskeletal: Yes (BILATERAL KNEE SURGERY) Arthritis Endocrine: Yes (MORBID OBESITY) Diabetes, Insulin dep HEENT: Yes (GLASSES; EYE SURGERY INFANT;EXTENSIVE DENTAL DECAY) Loss of Vision: Bilateral Hearing Impairment: Denies Cancer: No Psychosocial: No Integumentary: No Blood Disorders: No Adverse Reaction/Blood Tranf: No (N/A) Family Medical History Arthritis 19 FATHER 19 MOTHER G8 SISTER Asthma 19 FATHER 19 MOTHER G8 SISTER Cataracts 19 MOTHER Diabetes mellitus 19 FATHER 19 MOTHER G8 SISTER FH: leukemia 19 FATHER Myocardial infarction 19 MOTHER Parkinson's disease 19 FATHER Thyroid disease 19 MOTHER Asthma, CAD Over 55 Years Old, Diabetes PSH: -EYE SURGERY -BILATERAL KNEE SCOPES -HIATAL HERNIA REPAIR 07/2016 -LAP [facility] 06/2018 -LAST COLONOSCOPY 01/08/19 -SURGERY AT 07/11/22: GASTRIC AND INTESTINAL RESECTION FOR GASTROPARESIS AND HIATAL HERNIA REPAIR Physical Exam Vital Signs Vital Signs - First Documented 08/09/22 22:48 Temp 37.2 Pulse 77 Resp 18 B/P (MAP) 139/92 (108) Pulse Ox 98 O2 Delivery Room Air Capillary Refill : Height/Weight/BMI Height: 5'3.00" Weight: 178lbs. 0.0oz. 80.751317tt; 32.00 BMI Method:Stated General Appearance: WD/WN, no apparent distress, obese HEENT: other (EDENTULOUS; ORAL MUCOSA DRY) Neck: normal inspection Respiratory: normal breath sounds, no respiratory distress, no accessory muscle use Cardiovascular: regular rate, rhythm, no murmur Gastrointestinal: normal bowel sounds, non tender, soft; No distended; other (SURGICAL SITES WELL HEALED WITHOUT SIGNS OF INFECTION. ) Extremities: normal inspection, normal capillary refill Back: no CVA tenderness Neurologic/Psychiatric: moving worker II-XII nml as tested, no motor/sensory deficits, alert, normal mood/affect, oriented x 3 Skin: normal color, warm/dry Progress/Results/Core Measures Results/Orders Lab Results Laboratory Tests Test 08/09/22 22:58 08/09/22 23:05 Range/Units White Blood Count 6.0 4.3-11.0 10^3/uL Red Blood Count 4.50 3.80-5.11 10^6/uL Hemoglobin 13.3 11.5-16.0 g/dL Hematocrit 40 35-52 % Mean Corpuscular Volume 88 80-99 fL Mean Corpuscular Hemoglobin 30 25-34 pg Mean Corpuscular Hemoglobin Concent 33 32-36 g/dL Red Cell Distribution Width 14.0 10.0-14.5 % Platelet Count 214 130-400 10^3/uL Mean Platelet Volume 11.7 9.0-12.2 fL Immature Granulocyte % (Auto) 0 % Neutrophils (%) (Auto) 51 42-75 % Lymphocytes (%) (Auto) 38 12-44 % Monocytes (%) (Auto) 8 0-12 % Eosinophils (%) (Auto) 2 0-10 % Basophils (%) (Auto) 1 0-10 % Neutrophils # (Auto) 3.1 1.8-7.8 10^3/uL Lymphocytes # (Auto) 2.3 1.0-4.0 10^3/uL Monocytes # (Auto) 0.5 0.0-1.0 10^3/uL Eosinophils # (Auto) 0.1 0.0-0.3 10^3/uL Basophils # (Auto) 0.1 0.0-0.1 10^3/uL Immature Granulocyte # (Auto) 0.0 0.0-0.1 10^3/uL Sodium Level 137 135-145 MMOL/L Potassium Level 3.5 L 3.6-5.0 MMOL/L Chloride Level 104 98-107 MMOL/L Carbon Dioxide Level 15 L 21-32 MMOL/L Anion Gap 18 H 5-14 MMOL/L Blood Urea Nitrogen 8 7-18 MG/DL Creatinine 0.90 0.60-1.30 MG/DL Estimat Glomerular Filtration Rate 77 BUN/Creatinine Ratio 9 Glucose Level 277 H 70-105 MG/DL Calcium Level 10.0 8.5-10.1 MG/DL Corrected Calcium 9.9 8.5-10.1 MG/DL Magnesium Level 1.5 L 1.6-2.4 MG/DL Total Bilirubin 0.6 0.1-1.0 MG/DL Aspartate Amino Transf (AST/SGOT) 19 5-34 U/L Alanine Aminotransferase (ALT/SGPT) 24 0-55 U/L Alkaline Phosphatase 76 40-136 U/L Total Protein 7.4 6.4-8.2 GM/DL Albumin 4.1 3.2-4.5 GM/DL Amylase Level 22 L 25-125 U/L Lipase 23 8-78 U/L Urine Color YELLOW Urine Clarity SL CLOUDY Urine pH 6.0 5-9 Urine Specific [place] >=1.030 1.016-1.022 Urine Protein 2+ H NEGATIVE Urine Glucose (UA) 2+ H NEGATIVE Urine Ketones 3+ H NEGATIVE Urine Nitrite NEGATIVE NEGATIVE Urine Bilirubin 2+ H NEGATIVE Urine Urobilinogen 0.2 < = 1.0 MG/DL Urine Leukocyte Esterase NEGATIVE NEGATIVE Urine RBC (Auto) NEGATIVE NEGATIVE Urine RBC 0-2 /HPF Urine WBC 0-2 /HPF Urine Squamous Epithelial Cells 5-10 /HPF Urine Crystals NONE /LPF Urine Bacteria TRACE /HPF Urine Casts PRESENT /LPF Urine Hyaline Casts 5-10 H /LPF Urine Mucus LARGE H /LPF Urine Yeast FEW H /HPF Urine Culture Indicated YES My Orders Orders - NOEL CHIN DO Ed Iv/Invasive Line Start (08/09/22 22:56) Monitor-Rhythm Ecg Trace Only (08/09/22 22:56) Amylase (08/09/22 22:56) Cbc With Automated Diff (08/09/22 22:56) Comprehensive Metabolic Panel (08/09/22 22:56) Lipase (08/09/22 22:56) Magnesium (08/09/22 22:56) Ua Culture If Indicated (08/09/22 22:56) Ed Iv/Invasive Line Start (08/09/22 22:56) Lactated Ringers (Lr 1000 Ml Iv Solution (08/09/22 23:00) Ondansetron Injection (Zofran Injectio (08/09/22 23:00) Urine Culture (08/09/22 23:05) Ct Abdomen/Pelvis W (08/10/22 00:01) Iohexol Injection (Omnipaque 350 Mg/Ml 1 (08/10/22 00:30) Sodium Chloride Flush (Catheter Flush Sy (08/10/22 00:30) Ns (Ivpb) (Sodium Chloride 0.9% Ivpb Bag (08/10/22 00:30) Ondansetron Injection (Zofran Injectio (08/10/22 01:15) Pantoprazole Injection (Protonix Injecti (08/10/22 01:15) Medications Given in ED Vital Signs/I&O 08/09/22 08/10/22 22:48 01:01 Temp 37.2 Pulse 77 78 Resp 18 20 B/P (MAP) 139/92 (108) 121/69 Pulse Ox 98 99 O2 Delivery Room Air Room Air Blood Pressure Mean: 108 Progress Progress Note : Progress Note GIVEN: -IV FLUIDS -ZOFRAN -PROTONIX UNEVENTFUL ER STAY NAUSEA IS IMPROVED, AND PT IS TOLERATING ICE CHIPS PRIOR TO DISMISSAL. LABS FAIRLY UNREMARKABLE, GLUCOSE IS 277. URINE DOES HAVE SOME GLUCOSE AND KETONES BUT NO SIGNIFICANT BACTERIA. NO EVIDENCE OF SEPSIS OR DKA OR DEHYDRATION CT SCAN DOES NOT SHOW ANY ACUTE ABNORMALITY OR ANY POST OP COMPLICATIONS. VITALS STABLE DISCUSSED TEST RESULTS, ANTICIPATED COURSE, SYMPTOMATIC TREATMENT, DIET, NEED FOR FOLLOW UP AND RETURN PRECAUTIONS. REVIEWED PRIOR RECORDS, INCLUDING ER VISITS, ADMITS/H&P'S/CONSULTS/DISCHARGE SUMMARIES, TESTS/PROCEDURES. Diagnostic Imaging Comments CT ABDOMEN AND PELVIS--PER [facility] VIA FAX AT 0100 -NO ACUTE FINDINGS Reviewed: Reviewed by Me Departure Impression Primary Impression: Abdominal pain Additional Impressions: Nausea alone S/P GATRIC AND INTESTINAL SURGERY AND HIATAL HERNIA REPAIR Constipation IDDM Disposition: 01 HOME, SELF-CARE Condition: Improved Departure-Patient Inst. Decision time for Depature: 01:08 Referrals: EMMA VEGA APRN (PCP/Family) Primary Care Physician Patient Instructions: Abdominal Pain, Adult ED, Constipation, Adult ED, Nausea and Vomiting, Adult (DC), Postoperative Pain (DC) Add. Discharge Instructions: CLEAR LIQUIDS--WATER, BROTH, JELLO, GATORADE BRATS DIET--BANANAS, RICE, APPLESAUCE, TOAST, SALTINES CONTINUE YOUR REGULAR MEDICATIONS PRESCRIBED TAKE MIRALAX 1 CAPFUL IN 8 OZ WATER EVERY HOUR UNTIL YOU HAVE A BM, AND THEN TAKE ONCE A DAY EVERY DAY FOLLOW UP WITH [facility] NEXT WEEK SCHEDULED RETURN TO ER IF SYMPTOMS WORSEN All discharge instructions reviewed with patient and/or family. Voiced understanding. Scripts Pantoprazole Sodium (Protonix) 40 Mg Tablet. 40 MG PO DAILY, #15 TAB Prov: NOEL CHIN DO 08/10/22 Dicyclomine HCl (Dicyclomine HCl) 20 Mg Tablet 20 MG PO Q6H for Abdominal Pain, #20 TAB Prov: NOEL CHIN DO 08/10/22 Ondansetron HCl (Ondansetron HCl) 8 Mg Tablet 8 MG PO Q6H PRN for NAUSEA/VOMITING, #12 TAB Prov: NOEL CHIN DO 08/10/22 NOEL CHIN DO Aug 09, 2022 23:01
[2022-08-09 23:07] LABS: BASOPHILS # (AUTO) 0.1 10^3/uL (0.0-0.1); BASOPHILS % (AUTO) 1 % (0-10); EOSINOPHILS # (AUTO) 0.1 10^3/uL (0.0-0.3); EOSINOPHILS % (AUTO) 2 % (0-10); HEMATOCRIT 40 % (35-52); HEMOGLOBIN 13.3 g/dL (11.5-16.0); LYMPHOCYTES # (AUTO) 2.3 10^3/uL (1.0-4.0); LYMPHOCYTES % (AUTO) 38 % (12-44); MEAN CORPUSCULAR HEMOGLOBIN 30 pg (25-34); MEAN CORPUSCULAR HGB CONC 33 g/dL (32-36); MEAN CORPUSCULAR VOLUME 88 fL (80-99); MEAN PLATELET VOLUME 11.7 fL (9.0-12.2); MONOCYTES # (AUTO) 0.5 10^3/uL (0.0-1.0); MONOCYTES % (AUTO) 8 % (0-12); NEUTROPHILS # (AUTO) 3.1 10^3/uL (1.8-7.8); NEUTROPHILS % (AUTO) 51 % (42-75); PLATELET COUNT 214 10^3/uL (130-400)
[2022-08-09 23:13] LABS: CLARITY,URINE SL CLOUDY; COLOR,URINE YELLOW; GLUCOSE, URINE (UA) 2+ (NEGATIVE); KETONES,URINE 3+ (NEGATIVE); LEUKOCYTE ESTERASE ,URINE NEGATIVE (NEGATIVE); NITRITE,URINE NEGATIVE (NEGATIVE); PROTEIN,URINE 2+ (NEGATIVE)
[2022-08-09 23:23] LABS: ALBUMIN 4.1 GM/DL (3.2-4.5); POTASSIUM 3.5 MMOL/L (3.6-5.0)
[2022-08-09 23:24] LABS: BACTERIA,URINE TRACE /HPF; RBC,URINE 0-2 /HPF; WBC,URINE 0-2 /HPF; YEAST,URINE FEW /HPF
[2022-08-09 23:25] LABS: TOTAL PROTEIN 7.4 GM/DL (6.4-8.2)
[2022-08-09 23:27] LABS: BILIRUBIN,TOTAL 0.6 MG/DL (0.1-1.0)
[2022-08-09 23:28] LABS: BILIRUBIN,URINE 2+ (NEGATIVE)
[2022-08-09 23:29] LABS: CREATININE SERUM 0.9 MG/DL (0.60-1.30)
[2022-08-09 23:32] LABS: MAGNESIUM 1.5 MG/DL (1.6-2.4)
[2022-08-10] MEDS ORDERED: IOHEXOL 350 MG/ML 100 ML (OMNIPAQUE 350) VIAL IV ONE (00:30)
[2022-08-10] MEDS ORDERED: NS 100 ML (IVPB) BAG IV ONE (00:30)
[2022-08-10] MEDS ORDERED: CATHETER FLUSH 10 ML SYR IV PRN (00:30)
[2022-08-10 01:01] VITALS: BP 121/69
[2022-08-10] MEDS ORDERED: PANT40TA2 PO (01:12)
[2022-08-10] MEDS ORDERED: DICY20TA PO (01:12)
[2022-08-10] MEDS ORDERED: ONDA-106 PO (01:12)
[2022-08-10] MEDS ORDERED: PANTOPRAZOLE 40 MG (PROTONIX) VIAL IV ONE (01:15)
[2022-08-10] MEDS ORDERED: ONDANSETRON 4 MG/2 ML (SDV) Z0FRAN IVP ONE (01:15)
--- NOTE | 2022-08-10 07:42 | Diagnostic Imaging Report ---
PROCEDURE: CT abdomen and pelvis with contrast. TECHNIQUE: Multiple contiguous axial images were obtained through the abdomen and pelvis after administration of intravenous contrast. Auto Exposure Controls were utilized during the CT exam to meet ALARA standards for radiation dose reduction. All CT scans use one or more of the following dose optimizing techniques: automated exposure control, MA and/or KvP adjustment based on patient size and exam type or iterative reconstruction. INDICATION: Abdominal pain. Comparison is made with prior exam of 06/02/2022. FINDINGS: Heart size is normal. The lung bases are clear. The liver is normal in size without focal lesions. Gallbladder surgically absent. There is no biliary ductal dilatation. Spleen is normal. Pancreas and adrenal glands are unremarkable. Kidneys are normal. Aorta is nonaneurysmal. Bowel gas pattern is nonspecific. There is no no free air. There is no ascites. There are no focal inflammatory changes. Bladder is normal. There is no pelvic mass, adenopathy or free fluid. The osseous structures are unremarkable. IMPRESSION: No acute abnormality in the abdomen or pelvis. Dictated by: Dictated on workstation # [id number]
== END 2022-08-10 01:18 | disposition home or self-care (01) ==
LOC: EDUNIT# 22:35 → ER 22:37
DX: R10.84 Generalized abdominal pain (principal); K59.00 Constipation, unspecified; E11.9 Type 2 diabetes mellitus without complications; R11.0 Nausea; Z79.4 Long term (current) use of insulin; E66.01 Morbid (severe) obesity due to excess calories; Z98.890 Other specified postprocedural states; Z68.32 Body mass index [BMI] 32.0-32.9, adult
CPT/HCPCS: 36415; 74177; 80053; 81000; 82150; 83690; 83735; 85025; 87088; 93041

== ENCOUNTER 2022-08-10 22:14 | Emergency (ER) | payer OTHER ==
[~2022-08-10] VITALS: Ht 160 cm; Wt 73.5 kg
[~2022-08-10 22:14] MED LIST changes: +DICY20TA PO
[2022-08-10 22:18] VITALS: BP 161/96
[2022-08-10] MEDS ORDERED: NS IV 1000 ML 1,000 ML IV SCH ×2 (22:30→22:45)
[2022-08-10] MEDS ORDERED: PANTOPRAZOLE 40 MG (PROTONIX) VIAL IV ONE (22:30)
[2022-08-10] MEDS ORDERED: ONDANSETRON 4 MG/2 ML (SDV) Z0FRAN IVP ONE (22:30)
--- NOTE | 2022-08-10 22:31 | ED GI ---
General Chief Complaint: Abdominal/GI Problems Stated Complaint: VOMITING Source of Information: Patient, Old Records History of Present Illness Date Seen by Provider: Aug 10, 2022 Time Seen by Provider: 22:20 Initial Comments PT ARRIVES VIA POV FROM HOME WITH C/O CONTINUED GENERALIZED ABDOMINAL PAIN AND NAUSEA / "VOMITING" --DRY HEAVES, SPITTING UP SALIVA STATES SHE "CAN'T KEEP ANYTHING DOWN" BUT IS NOT ACTUALLY VOMITING--ONLY DRY HEAVING. NO ACTUAL EMESIS OF STOMACH CONTENTS SHE STATES THE PAIN IS STARTING TO GO UP INTO THE MIDDLE OF HER CHEST AND IS GETTING WORSE., IS NAUSEA AND DRY HEAVING SHE C/O FEELING LIGHTHEADED WHEN SHE GETS UP AND WALKS NO FEVER NO BACK PAIN STATES SHE TOOK ALL OF HER MEDICATIONS TODAY INCLUDING HER INSULIN, SHE CLAIMS SHE TOOK HER PAIN PILLS TODAY ALSO, WELL THE ZOFRAN AND PROTONIX THAT WAS PRESCRIBED YESTERDAY. SHE HAS NOT CHECKED HER BLOOD SUGAR TODAY C/O URINARY FREQUENCY AND THIRST NO PAIN ON URINATION SHE HAS BEEN DRINKING LOTS OF APPLEJUICE AND REGULAR JELLO AND WATER BUT "CAN'T KEEP IT DOWN" SHE HAD SURGERY AT ON 07/11/22--HIATAL HERNIA REPAIR ( HAD PREVIOUS HIATAL HERNIA REPAIR IN 2017 ), ALONG WITH PARTIAL GASTRECTOMY AND GASTRO-JEJUNOSTOMY ( MODIFIED LIZA-EN-Y SURGERY) SHE HAS NOT HAD ANY PROBLEMS SINCE SURGERY UNTIL YESTERDAY. SHE WAS SEEN IN ER LAST PM FOR THESE SAME COMPLAINTS, AND SHE HAD A FULL WORK UP INCLUDING LAB AND CT SCAN AND WAS GIVEN PROTONIX AND ZOFRAN AND HER SYMPTOMS RESOLVED AND SHE WAS TOLERATING ICE CHIPS AND CLEAR LIQUIDS SHE WAS GIVEN PRESCRIPTIONS FOR ZOFRAN AND PROTONIX. PT STATES SHE GOT THOSE PRESCRIPTIONS FILLED AND TOOK THEM TODAY. SHE STATES SOON SHE GOT HOME FROM ER VISIT, HER SYMPTOMS RETURNED AND HAVE CONTINUED ALL DAY PT STATES SHE CALLED [facility] SOMETIME AROUND 1930 OR LATER, AND SHE STATES SHE WAS TOLD TO GO TO ER. SHE STATES SHE THEN WENT TO SLEEP AND THEN WOKE UP AND CAME HERE. 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, 12/27/21) Patient Home Medication List Home Medication List Reviewed: Yes Albuterol Sulfate (Ventolin Hfa) 1 Puff Puff, 2 PUFF IH Q6H PRN for SHORTNESS OF BREATH, (Reported) Entered as Reported by: LAUREN PAYNE on 12/02/16 2231 Baclofen (Baclofen) 10 Mg Tablet, 10 MG PO TID Prescribed by: Luana Larkin on 07/21/22 1536 Cetirizine HCl (Zyrtec) 10 Mg Capsule, 10 MG PO DAILY, (Reported) Entered as Reported by: FLAVIA DUNHAM on 04/04/16 2340 Dicyclomine HCl (Dicyclomine HCl) 20 Mg Tablet, 20 MG PO Q6H Prescribed by: NOEL CHIN on 08/10/22 0112 Doxycycline Hyclate (Doxycycline Hyclate) 100 Mg Tablet, 100 MG PO BID Prescribed by: LUPE BUENO on 01/22/22 1652 Fluconazole (Diflucan) 150 Mg Tablet, 150 MG PO UD Prescribed by: YADIRA FERMIN on 12/09/21 0249 Guaifenesin (Mucinex) 1,200 Mg Tab.er.12h, 1,200 MG PO DAILY, (Reported) Entered as Reported by: ANDREA BARBER on 06/12/18 0953 Hydrocodone/Acetaminophen (Hydrocodone-Acetamin 5-325 mg) 5 Mg-325 Mg Tablet, 1 TAB PO Q4H PRN for PAIN-MODERATE (5-7) Prescribed by: ASIF LEON on 07/22/21 2259 Hydrocodone/Acetaminophen (Hydrocodone-Acetamin 5-325 mg) 5 Mg-325 Mg Tablet, 1 TAB PO Q6H PRN for PAIN-MODERATE (5-7) Prescribed by: LUPE BUENO on 01/22/22 1700 Hyoscyamine Sulfate (Levsin-Sl) 0.125 Mg Tab.subl, 0.125 MG SL Q4H PRN for CRAMPS Prescribed by: AYDIRA FERMIN on 12/09/21 0249 Insulin Glargine,Hum.rec.anlog (Lantus Solostar) 100 Unit/1 Ml Insuln.pen, 50 UNITS SC HS, (Reported) Entered as Reported by: FLAVIA DUNHAM on 07/13/152140 Lidocaine (Salonpas) 4 % Adh..patch, 1 EACH TP DAILY Prescribed by: Luana Larkin on 07/21/22 1536 Metformin HCl (Metformin HCl) 1,000 Mg Tablet, 1,000 MG PO BID, (Reported) Entered as Reported by: FLAVIA DUNHAM on 07/13/152140 Naproxen (Naproxen) 500 Mg Tablet.dr, 500 MG PO BID Prescribed by: ASIF LEON on 07/22/21 225 Naproxen (Naproxen) 500 Mg Tablet.dr, 500 MG PO BID Prescribed by: NOEL CHIN on 11/21/21 235 Omeprazole (Omeprazole) 40 Mg Capsule., (Reported) Entered as Reported by: LAUREN PAYNE on 11/21/21 2336 Ondansetron (Ondansetron Odt) 4 Mg Tab.rapdis, 4 MG SL Q4H PRN for NAUSEA/VOMITING Prescribed by: YADIRA FERMIN on 12/09/21 0249 Ondansetron HCl (Zofran) 4 Mg Tab, 4 MG PO Q4H Prescribed by: AIDEE SOUZA on 05/26/182202 Ondansetron HCl (Ondansetron HCl) 8 Mg Tablet, 8 MG PO Q6H PRN for NAUSEA/VOMITING Prescribed by: NOEL CHIN on 08/10/22 011 Pantoprazole Sodium (Protonix) 40 Mg Tablet.dr, 40 MG PO DAILY Prescribed by: NOEL CHIN on 08/10/22 011 Polyethylene Glycol 3350 (Miralax) 17 Gm Powd.pack, 17 GM PO DAILY Prescribed by: NOEL CHIN on 04/06/19 0056 Promethazine HCl (Promethazine Tablet) 25 Mg Tablet, 25 MG PO Q6H PRN for NAUSEA/VOMITING Prescribed by: AGUILAR ARRINGTON on 06/02/22 221 Sucralfate (Carafate) 1 Gm Tablet, 1 GM PO QID Prescribed by: NOEL CHIN on 12/27/191955 Review of Systems Review of Systems Constitutional: see HPI, dizziness Respiratory: No Symptoms Reported Cardiovascular: No Symptoms Reported Gastrointestinal: See HPI, Abdominal Pain, Nausea, Poor Appetite, Poor Fluid Intake, Vomiting Genitourinary: See HPI; Denies Burning; Frequency; Denies Flank Pain Musculoskeletal: no symptoms reported; No back pain Skin: no symptoms reported Psychiatric/Neurological: No Symptoms Reported Endocrine: See HPI, Increased Thrist, Increased Urine Hematologic/Lymphatic: No Symptoms Reported Past Hpukbov-Ctwxvs-Qrvfps Hx Immunizations Up To Date Tetanus Booster (TDap): Unknown PED Vaccines UTD: No First/Initial COVID19 Vaccinat: 03/19/20 Second COVID19 Vaccination Franco: 04/08/20 Third COVID19 Vaccination Date: 01/05/21 Seasonal Allergies Seasonal Allergies: Yes Past Medical History Surgery/Hospitalization HX: PMH;DM, GERD, HTN SURGERY;HITAL HERNIA SURGERY, GALLBLADDER, BILATERAL KNEES, AND EYESURGERY.LEFT BREAST BIOPSY 11/15/21-BENIGN HIATAL HERNIA, GASTRIC SLEEVE AND INTESTIONAL RESECTION FOR GASTROPARESIS DONE AT 07/11/22 Surgeries: Yes (HIATAL HERNIA REPAIR 2016; [facility] 06/2018; BILAT KNEE SCOPES; EYE SURGERY ) Abdominal, Breast, Eye Surgery, Gallbladder, Orthopedic Respiratory: Yes Asthma Currently Using CPAP: No Currently Using BIPAP: No Cardiac: Yes High Cholesterol Neurological: No Reproductive Disorders: Yes Female Reproductive Disorders: Menstrual Problems Sexually Transmitted Disease: No HIV/AIDS: No Genitourinary: Yes Bladder Infection, UTI-Chronic Gastrointestinal: Yes (ESOPHAGEAL NARROWING;HIATAL HERNIA REPAIR 2016;[facility] ;GASTROPARESIS) Gastroesophageal Reflux, Hiatal Hernia, Ulcer, Gall Bladder Disease Musculoskeletal: Yes (BILATERAL KNEE SURGERY) Arthritis Endocrine: Yes (MORBID OBESITY) Diabetes, Insulin dep HEENT: Yes (GLASSES; EYE SURGERY ;EXTENSIVE DENTAL DECAY) Loss of Vision: Bilateral Hearing Impairment: Denies Cancer: No Psychosocial: No Integumentary: No Blood Disorders: No Adverse Reaction/Blood Tranf: No (N/A) Family Medical History Arthritis 19 FATHER 19 MOTHER G8 SISTER Asthma 19 FATHER 19 MOTHER G8 SISTER Cataracts 19 MOTHER Diabetes mellitus 19 FATHER 19 MOTHER G8 SISTER FH: leukemia 19 FATHER Myocardial infarction 19 MOTHER Parkinson's disease 19 FATHER Thyroid disease 19 MOTHER Asthma, CAD Over 55 Years Old, Diabetes SOCIAL HISTORY: -DENIES SMOKING OR VAPING -DENIES ALCOHOL USE NOW OR IN THE PAST -DENIES DRUG USE NOW OR IN THE PAST PAST SURTGICAL HISTORY: -EYE SURGERY -BILATERAL KNEE SCOPES -HIATAL HERNIA REPAIR 07/2016 -LAP [facility] 06/2018 -LAST COLONOSCOPY 01/08/19 -SURGERY AT [facility] 07/11/22: GASTRIC AND INTESTINAL RESECTION FOR GASTROPARESIS AND HIATAL HERNIA REPAIR--PER [facility]: HIATAL HERNIA REPAIR FOR PARAESOPHAGEAL HERNIA, AND PARTIAL GASTRECTOMY WITH GASTRO-JEJUNOSTOMY ( MODIFIED LIZA-EN-Y PROCEDURE) Physical Exam Vital Signs Vital Signs - First Documented 08/10/22 22:18 Temp 36.5 Pulse 76 Resp 26 B/P (MAP) 161/96 (117) Pulse Ox 98 Capillary Refill : Height/Weight/BMI Height: 5'3.00" Weight: 178lbs. 0.0oz. [id number]; 32.00 BMI Method:Stated General Appearance: WD/WN, other (DRY HEAVING ON ARRIVAL) HEENT: PERRL/EOMI, other (EDENTULOUS, ORAL MUCOSA SLIGHTLY DRY) Neck: normal inspection Respiratory: normal breath sounds, no respiratory distress, no accessory muscle use Cardiovascular: regular rate, rhythm, no murmur Gastrointestinal: normal bowel sounds, soft; No distended, No guarding, No rebound; tenderness (MIDL DIFFUSE TENDERNESS), other (SURGICAL SITES ARE WELL HEALED WITH NO SIGNS OF INFECTION) Extremities: normal inspection, normal capillary refill Back: no CVA tenderness Neurologic/Psychiatric: 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 II-XII nml as tested, no motor/sensory deficits, alert, normal mood/affect, oriented x 3 Skin: normal color, warm/dry Focused Exam Lactate Level 08/10/22 22:25: Lactic Acid Level 2.13*H 08/11/22 03:48: Lactic Acid Level 1.45 Lactic Acid Level Laboratory Tests Test 08/10/22 22:25 08/11/22 03:48 Lactic Acid Level 2.13 MMOL/L (0.50-2.00) *H 1.45 MMOL/L (0.50-2.00) Progress/Results/Core Measures Results/Orders Lab Results Laboratory Tests Test 08/10/22 22:25 08/10/22 22:38 08/10/22 22:50 08/11/22 00:23 Range/Units White Blood Count 8.8 4.3-11.0 10^3/uL Red Blood Count 4.58 3.80-5.11 10^6/uL Hemoglobin 13.7 11.5-16.0 g/dL Hematocrit 41 35-52 % Mean Corpuscular Volume 90 80-99 fL Mean Corpuscular Hemoglobin 30 25-34 pg Mean Corpuscular Hemoglobin Concent 33 32-36 g/dL Red Cell Distribution Width 14.2 10.0-14.5 % Platelet Count 243 130-400 10^3/uL Mean Platelet Volume 11.6 9.0-12.2 fL Immature Granulocyte % (Auto) 0 % Neutrophils (%) (Auto) 90 H 42-75 % Lymphocytes (%) (Auto) 9 L 12-44 % Monocytes (%) (Auto) 1 0-12 % Eosinophils (%) (Auto) 0 0-10 % Basophils (%) (Auto) 0 0-10 % Neutrophils # (Auto) 7.9 H 1.8-7.8 10^3/uL Lymphocytes # (Auto) 0.8 L 1.0-4.0 10^3/uL Monocytes # (Auto) 0.1 0.0-1.0 10^3/uL Eosinophils # (Auto) 0.0 0.0-0.3 10^3/uL Basophils # (Auto) 0.0 0.0-0.1 10^3/uL Immature Granulocyte # (Auto) 0.0 0.0-0.1 10^3/uL Neutrophils % (Manual) 86 % Lymphocytes % (Manual) 12 % Monocytes % (Manual) 2 % Poikilocytosis SLIGHT Crenated Cell SLIGHT Prothrombin Time 15.5 H 12.2-14.7 SEC INR Comment 1.2 0.8-1.4 Activated Partial Thromboplast Time 30 24-35 SEC Sodium Level 138 135-145 MMOL/L Potassium Level 3.9 3.6-5.0 MMOL/L Chloride Level 106 98-107 MMOL/L Carbon Dioxide Level 10 L 21-32 MMOL/L Anion Gap 22 H 5-14 MMOL/L Blood Urea Nitrogen 6 L 7-18 MG/DL Creatinine 1.16 0.60-1.30 MG/DL Estimat Glomerular Filtration Rate 57 BUN/Creatinine Ratio 5 Glucose Level 325 H 70-105 MG/DL Lactic Acid Level 2.13 *H 0.50-2.00 MMOL/L Calcium Level 10.0 8.5-10.1 MG/DL Corrected Calcium 9.6 8.5-10.1 MG/DL Magnesium Level 1.4 L 1.6-2.4 MG/DL Total Bilirubin 0.4 0.1-1.0 MG/DL Aspartate Amino Transf (AST/SGOT) 19 5-34 U/L Alanine Aminotransferase (ALT/SGPT) 25 0-55 U/L Alkaline Phosphatase 76 40-136 U/L Total Creatine Kinase 70 29-168 U/L Creatine Kinase MB 1.0 <6.6 NG/ML Troponin I < 0.028 <0.028 NG/ML B-Type Natriuretic Peptide 126.9 H <100.0 PG/ML Total Protein 8.1 6.4-8.2 GM/DL Albumin 4.5 3.2-4.5 GM/DL Amylase Level 24 L 25-125 U/L Lipase 24 8-78 U/L Urine Color YELLOW Urine Clarity CLEAR Urine pH 5.5 5-9 Urine Specific [place] >=1.030 1.016-1.022 Urine Protein 1+ H NEGATIVE Urine Glucose (UA) 2+ H NEGATIVE Urine Ketones 3+ H NEGATIVE Urine Nitrite NEGATIVE NEGATIVE Urine Bilirubin NEGATIVE NEGATIVE Urine Urobilinogen 0.2 < = 1.0 MG/DL Urine Leukocyte Esterase NEGATIVE NEGATIVE Urine RBC (Auto) TRACE-I H NEGATIVE Urine RBC 2-5 H /HPF Urine WBC NONE /HPF Urine Squamous Epithelial Cells 2-5 /HPF Urine Crystals NONE /LPF Urine Bacteria NEGATIVE /HPF Urine Casts NONE /LPF Urine Mucus NEGATIVE /LPF Urine Culture Indicated NO Glucometer 294 H 232 H 70-110 MG/DL Urine Opiates Screen NEGATIVE NEGATIVE Urine Oxycodone Screen NEGATIVE NEGATIVE Urine Methadone Screen NEGATIVE NEGATIVE Urine Propoxyphene Screen NEGATIVE NEGATIVE Urine Barbiturates Screen NEGATIVE NEGATIVE Ur Tricyclic Antidepressants Screen NEGATIVE NEGATIVE Urine Phencyclidine Screen NEGATIVE NEGATIVE Urine Amphetamines Screen NEGATIVE NEGATIVE Urine Methamphetamines Screen NEGATIVE NEGATIVE Urine Benzodiazepines Screen NEGATIVE NEGATIVE Urine Cocaine Screen NEGATIVE NEGATIVE Urine Cannabinoids Screen NEGATIVE NEGATIVE Venous Blood pH 7.20 L 7.31-7.41 Venous Blood Partial Pressure CO2 27 L 40-52 MMHG Venous Blood HCO3 10 L 22-28 MMOL/L Test 08/11/22 03:33 08/11/22 03:48 Range/Units Glucometer 224 H 70-110 MG/DL Venous Blood pH 7.29 L 7.31-7.41 Venous Blood Partial Pressure CO2 20 L 40-52 MMHG Venous Blood HCO3 9 L 22-28 MMOL/L Sodium Level 138 135-145 MMOL/L Potassium Level 4.1 3.6-5.0 MMOL/L Chloride Level 114 H 98-107 MMOL/L Carbon Dioxide Level 7 *L 21-32 MMOL/L Anion Gap 17 H 5-14 MMOL/L Blood Urea Nitrogen 4 L 7-18 MG/DL Creatinine 0.92 0.60-1.30 MG/DL Estimat Glomerular Filtration Rate 75 BUN/Creatinine Ratio 4 Glucose Level 247 H 70-105 MG/DL Lactic Acid Level 1.45 0.50-2.00 MMOL/L Calcium Level 8.5 8.5-10.1 MG/DL Beta-Hydroxybutyrate (Chem panel) 6.82 H 0.00-0.27 MMOL/L My Orders Orders - NOEL CHIN DO Accucheck Stat ONCE (08/10/22 22:26) Ed Iv/Invasive Line Start (08/10/22 22:26) Monitor-Rhythm Ecg Trace Only (08/10/22:) Amylase (08/10/22 22:26) Bnp Hector (08/10/22 22:26) Cbc With Automated Diff (08/10/22:) Comprehensive Metabolic Panel (08/10/22:) Creatine Kinase (08/10/22:) Creatine Kinase Mb (08/10/22 22:) Lactic Acid Analyzer (08/10/22 22:) Lipase (08/10/22 22:) Magnesium (08/10/22 22:) Protime With Inr (08/10/22:) Partial Thromboplastin Time (08/10/22 22:26) Ua Culture If Indicated (08/10/22 22:) Troponin I Hector (08/10/22 22:26) Ed Iv/Invasive Line Start (08/10/22 22:26) Ns Iv 1000 Ml (Sodium Chloride 0.9%) (08/10/22 22:30) Ondansetron Injection (Zofran Injectio (08/10/22 22:30) Pantoprazole Injection (Protonix Injecti (08/10/22 22:30) Drug Screen Stat (Urine) (08/10/22 22:26) Ed Iv/Invasive Line Start (08/10/22 22:43) Ns Iv 1000 Ml (Sodium Chloride 0.9%) (08/10/22 22:45) Venous Blood Gas (08/10/22 22:43) Manual Differential (08/10/22 22:25) Magnesium 1 Gm/100 Ml Ivpb (Magnesium Henry (08/10/22 23:00) Insulin (Regular) Human (Novolin R (Per (08/10/22 23:00) Promethazine Injection (Phenergan Injec (08/11/22 00:15) Diphenhydramine Injection (Benadryl Inje (08/11/22 00:15) Ed Iv/Invasive Line Start (08/11/22 00:03) Ns Iv 1000 Ml (Sodium Chloride 0.9%) (08/11/22 00:15) Sodium Bicarbonate 8.4% Syr (Sodium Bica (08/11/22 00:30) Ct Chest/Abdomen/Pelvis W (08/11/22 00:49) Iohexol Injection (Omnipaque 350 Mg/Ml 1 (08/11/22 01:45) Received Contrast (Hold Metformin- Contr (08/11/22 01:45) Sodium Chloride Flush (Catheter Flush Sy (08/11/22 01:45) Ns (Ivpb) (Sodium Chloride 0.9% Ivpb Bag (08/11/22 01:45) Droperidol Inj (Ed Only) (Inapsine Inj ( (08/11/22 03:30) Ns W/Kcl 20 Meq/L (Ns Iv W/Kcl 20 Meq/L) (08/11/22 03:30) Accucheck Stat ONCE (08/11/22 03:22) Beta Hydroxybutyrate (08/11/22 03:35) Venous Blood Gas (08/11/22 03:35) Basic Metabolic Panel (08/11/22 03:35) Lactic Acid Analyzer (08/11/22 03:35) Sodium Bicarbonate 8.4% Syr (Sodium Bica (08/11/22 04:00) Insulin (Regular) Human (Novolin R (Per (08/11/22 04:00) Medications Given in ED Current Medications Medications Dose Ordered Sig/Hunter Route Start Time Stop Time Status Last Admin Dose Admin Diphenhydramine HCl 25 mg ONCE ONCE IVP 08/11/22 00:15 08/11/22 00:16 DC 08/11/22 00:22 25 MG Droperidol 2.5 mg ONCE ONCE IV 08/11/22 03:30 08/11/22 03:31 DC 08/11/22 03:22 2.5 MG Insulin Human Regular 10 unit ONCE ONCE IV 08/10/22 23:00 08/10/22 23:01 DC 08/10/22 23:14 10 UNIT Insulin Human Regular 10 unit ONCE ONCE IV 08/11/22 04:00 08/11/22 04:01 DC 08/11/22 04:08 10 UNIT Iohexol 100 ml ONCE ONCE IV 08/11/22 01:45 08/11/22 01:46 DC 08/11/22 01:50 80 ML Magnesium Sulfate/ Dextrose 100 ml @ 100 mls/hr ONCE ONCE IV 08/10/22 23:00 08/10/22 23:59 DC 08/10/22 23:14 100 MLS/HR Ondansetron HCl 8 mg ONCE ONCE IVP 08/10/22 22:30 08/10/22 22:31 CO 08/10/22 22:35 8 MG Pantoprazole 40 mg ONCE ONCE IV 08/10/22 22:30 08/10/22 22:31 CO 08/10/22 22:34 40 MG Promethazine HCl 25 mg ONCE ONCE IVP 08/11/22 00:15 08/11/22 00:16 CO 08/11/22 00:22 25 MG Sodium Bicarbonate 50 meq ONCE ONCE IV 08/11/22 00:30 08/11/22 00:31 CO 08/11/22 00:38 50 MEQ Sodium Bicarbonate 50 meq ONCE ONCE IV 08/11/22 04:00 08/11/22 04:01 CO 08/11/22 04:08 50 MEQ Sodium Chloride 10 ml NEEDED PRN IV 08/11/22 01:45 08/11/22 01:50 10 ML Sodium Chloride 100 ml ONCE ONCE IV 08/11/22 01:45 08/11/22 01:46 CO 08/11/22 01:50 80 ML Vital Signs/I&O 08/10/22 22:18 Temp 36.5 Pulse 76 Resp 26 B/P (MAP) 161/96 (117) Pulse Ox 98 08/11/22 00:00 Intake Total 1000 ml Balance 1000 ml Progress Progress Note : Progress Note GIVEN: -IV FLUIDS -PROTONIX -ZOFRAN -PHENERGAN + BENADRYL -INAPSINE -INSULIN -SODIUM BICARB -MAGNESIUM LABS INCLUDING CBC, CMP, LACTIC ACID, BETAHYDROXYBUTYRATE, VENOUS BLOOD GAS, UA, UDS, AMYLASE, LIPASE ORDERED CBC: WBC 8.8, HGB 13.7, PLT 243,000 CMP: NA 138, K 3.9, CO2 10, ANION GAP 22, BUN/CR 6/1.16, GLUCOSE 325, MG 1.4, LFT'S NORMAL, AMYLASE/LIPASE NORMAL, TROPONIN NEGATIVE, BNP 126.9 -REPEAT BMP: NA 138, K 4.1, CO2 7, ANION GAP 17, BUN/CR 4/0.92, GLUCOSE 247 LACTIC ACID 2.13 -REPEAT LACTIC ACID 1.45 VENOUS BLOOD GAS: PH 7.20, PCO2 27, PHCO3 10 -REPEAT VENOUS BLOOD GAS: PH 7.29, PCO2 20, PHCO3 9 VITALS REMAIN STABLE WITH HR IN 80'S, BP 110'S-120'S/70'S-80'S. NO HYPOXIA, NO FEVER VITALS AT TIME OF TRANSFER: BP135/82, HR 79, RR 15, O2 SAT 99% ON ROOM AIR. DISCUSSED ALL TEST RESULTS WITH PT, NEED FOR TRANSFER AND PT IS AGREEABLE TO PLAN REVIEWED PRIOR RECORDS, INCLUDING ER VISITS, ADMITS/H&P'S/CONSULTS/DISCHARGE S UMMARIES, TESTS/PROCEDURES Diagnostic Imaging Comments CT CHEST/ABDOMEN/PELVIS--PER [facility] VIA FAX AT 0345 -POSSIBLE INCREASED CIRCUMFERENTIAL WALL THICKENING OF DISTAL ESOPHAGUS AT GE JUNCTION, SUSPICIOUS FOR ESOPHAGITIS. -ENLARGED NODULAR THYROID -NO ACUTE FINDINGS IN ABDOMEN/PELVIS--CHRONIC FINDINGS SIMILAR TO PREVIOUS EXAMINATION. -AGAIN THE COLON AT THE SPLENIC FLEXURE IS ACUTELY ANGULATED, APPEARING TETHERED TO THE GE JUNCTION AND MAY HERNIATE THROUGH THE HIATUS. THIS IS OF UNCERTAIN CLINICAL SIGNIFICANCE -NO EVIDENCE OF OBSTRUCTION -NO FREE AIR OR FREE FLUID Reviewed: Reviewed by Me Departure Communication (Admissions) 0015--CALLED [facility]. WILL DISCUSS WITH PHYSICIANS AND CALL BACK 0047--[facility] CALLED BACK. THE HOSPITALIST THERE RECOMMENDS REPEATING CT SCAN AND CALL BACK WITH THOSE RESULTS 0348--CALLED [facility] AND DISCUSSED CT SCAN REPORT. IMAGES FROM TONIGHT AND LAST NIGHT CLOUDED TO THEM FOR THEIR REVIEW. THEY WILL CALL BACK. 421--[facility] CALLED BACK, PT IS ACCEPTED BY DR. TRIPP, HOSPITALIST. NO ADDITIONAL RECOMMENDATIONS AT THIS TIME. THERE IS NO LOCAL OR REGIONAL GROUND TRANSPORT AVAILABLE AT THIS TIME, AIR TRANSPORT SERVICES ARE BEING CONTACTED [facility] HAS ACCEPTED THE TRANSPORT OF THIS PT. ETA 33 MINUTES. [id number]--[facility] HERE TO TRANSPORT PT Impression Primary Impression: Intractable nausea and vomiting Additional Impressions: Generalized abdominal pain S/P RECENT ABDOMINAL SURGERY DKA (diabetic ketoacidosis) ESOPHAGITIS Disposition: XFER SHT-TRM HOSP Condition: Stable Transfer Transfer Reason: Exceeds level of care (NEED FOR SPECIALTY SURGICAL UNAVAILABLE HERE. ) Transfer Facility: [facility] Method of Transfer: Air Departure-Patient Inst. Referrals: EMMA VEGA APRN (PCP/Family) Primary Care Physician NOEL CHIN DO Aug 10, 2022 22:31
[2022-08-10 22:35] LABS: BASOPHILS % (AUTO) 0 % (0-10); EOSINOPHILS % (AUTO) 0 % (0-10); HEMATOCRIT 41 % (35-52); HEMOGLOBIN 13.7 g/dL (11.5-16.0); LYMPHOCYTES # (AUTO) 0.8 10^3/uL (1.0-4.0); LYMPHOCYTES % (AUTO) 9 % (12-44); MEAN CORPUSCULAR HEMOGLOBIN 30 pg (25-34); MEAN CORPUSCULAR HGB CONC 33 g/dL (32-36); MEAN CORPUSCULAR VOLUME 90 fL (80-99); MEAN PLATELET VOLUME 11.6 fL (9.0-12.2); MONOCYTES # (AUTO) 0.1 10^3/uL (0.0-1.0); MONOCYTES % (AUTO) 1 % (0-12); NEUTROPHILS # (AUTO) 7.9 10^3/uL (1.8-7.8); NEUTROPHILS % (AUTO) 90 % (42-75); PLATELET COUNT 243 10^3/uL (130-400); WHITE BLOOD COUNT 8.8 10^3/uL (4.3-11.0)
[2022-08-10 22:44] LABS: ALBUMIN 4.5 GM/DL (3.2-4.5); CHLORIDE 106 MMOL/L (98-107); POTASSIUM 3.9 MMOL/L (3.6-5.0); SODIUM 138 MMOL/L (135-145)
[2022-08-10 22:45] LABS: AMYLASE 24 U/L (25-125)
[2022-08-10 22:46] LABS: GLUCOSE 325 MG/DL (70-105); INR 1.2 (0.8-1.4); PROTHROMBIN TIME PATIENT 15.5 SEC (12.2-14.7); TOTAL PROTEIN 8.1 GM/DL (6.4-8.2)
[2022-08-10 22:47] LABS: CARBON DIOXIDE 10 MMOL/L (21-32)
[2022-08-10 22:47] LABS: BILIRUBIN,URINE NEGATIVE (NEGATIVE); CLARITY,URINE CLEAR; COLOR,URINE YELLOW; GLUCOSE, URINE (UA) 2+ (NEGATIVE); KETONES,URINE 3+ (NEGATIVE); LEUKOCYTE ESTERASE ,URINE NEGATIVE (NEGATIVE); NITRITE,URINE NEGATIVE (NEGATIVE); PH,URINE 5.5 (5-9); PROTEIN,URINE 1+ (NEGATIVE)
[2022-08-10 22:48] LABS: BILIRUBIN,TOTAL 0.4 MG/DL (0.1-1.0)
[2022-08-10 22:50] LABS: ALKALINE PHOSPHATASE 76 U/L (40-136); CREATININE SERUM 1.16 MG/DL (0.60-1.30); GFR ESTIMATED 57
[2022-08-10 22:51] LABS: BUN/CREATININE RATIO 5
[2022-08-10 22:53] LABS: BACTERIA,URINE NEGATIVE /HPF
[2022-08-10 22:53] LABS: ALANINE AMINOTRANSFERASE 25 U/L (0-55); MAGNESIUM 1.4 MG/DL (1.6-2.4)
[2022-08-10 22:54] LABS: CREATINE KINASE 70 U/L (29-168); LIPASE 24 U/L (8-78)
[2022-08-10 22:59] LABS: AMPHETAMINE SCREEN, URINE NEGATIVE (NEGATIVE); BARBITURATE SCREEN URINE NEGATIVE (NEGATIVE); BENZODIAZEPINES SCREEN URINE NEGATIVE (NEGATIVE); CANNABINOID SCREEN, URINE NEGATIVE (NEGATIVE); COCAINE SCREEN URINE NEGATIVE (NEGATIVE); METHADONE STAT NEGATIVE (NEGATIVE); OPIATE SCREEN URINE NEGATIVE (NEGATIVE); OXYCODONE STAT NEGATIVE (NEGATIVE); PROPOXYPHENE STAT NEGATIVE (NEGATIVE); TRICYCLIC ANTIDEPRESSANTS SCRE NEGATIVE (NEGATIVE)
[2022-08-10] MEDS ORDERED: MAGNESIUM 1 GM/100 ML IVPB 100 ML IV ONE (23:00)
[2022-08-10] MEDS ORDERED: inSUlin (REGULAR) HUMAN 1 UNIT/0.01 ML (CHARGE PER UNIT) IV ONE (23:00)
[2022-08-10 23:03] LABS: LYMPHOCYTES % (MANUAL) 12 %; MONOCYTES % (MANUAL) 2 %; NEUTROPHILS % (MANUAL) 86 %; POIKILOCYTOSIS SLIGHT
[2022-08-10 23:04] LABS: CRENATED RBC SLIGHT
[2022-08-11] MEDS ORDERED: diphenhydrAMINE 50 MG/ML INJ (BENADRYL) IVP ONE (00:15)
[2022-08-11] MEDS ORDERED: PROMETHAZINE INJ 25 MG/ML (PHENERGAN) AMP IVP ONE (00:15)
[2022-08-11] MEDS ORDERED: NS IV 1000 ML 1,000 ML IV SCH (00:15)
[2022-08-11] MEDS ORDERED: SODIUM BICARB 8.4% 50 MEQ/50 ML (ABBOTT) SYR IV ONE ×2 (00:30→04:00)
[2022-08-11] MEDS ORDERED: IOHEXOL 350 MG/ML 100 ML (OMNIPAQUE 350) VIAL IV ONE (01:45)
[2022-08-11] MEDS ORDERED: CATHETER FLUSH 10 ML SYR IV PRN (01:45)
[2022-08-11] MEDS ORDERED: HOLD METFORMIN - RECEIVED CONTRAST 20 ML VIAL IV SCH (01:45)
[2022-08-11] MEDS ORDERED: NS 100 ML (IVPB) BAG IV ONE (01:45)
[2022-08-11] MEDS ORDERED: DROPERIDOL 5 MG/2 ML (INAPSINE) ED ONLY! IV ONE (03:30)
[2022-08-11] MEDS ORDERED: NS W/KCL 20 MEQ/L 1,000 ML IV SCH (03:30)
[2022-08-11] MEDS ORDERED: inSUlin (REGULAR) HUMAN 1 UNIT/0.01 ML (CHARGE PER UNIT) IV ONE (04:00)
[2022-08-11 04:04] LABS: POTASSIUM 4.1 MMOL/L (3.6-5.0)
[2022-08-11 04:05] LABS: CALCIUM 8.5 MG/DL (8.5-10.1)
[2022-08-11 04:10] LABS: CREATININE SERUM 0.92 MG/DL (0.60-1.30)
--- NOTE | 2022-08-11 07:24 | Diagnostic Imaging Report ---
INDICATION: Post operative pain. Nausea and vomiting. Hiatal hernia repair on 07/11/2022 with resection of a portion of the stomach and colon. Prior cholecystectomy. Gastroparesis. EXAMINATION: CT chest, abdomen, and pelvis on 08/11/2022. COMPARISON: CT abdomen and pelvis of 08/10/2022. FINDINGS: CHEST: Multiple small hypodensities are noted throughout the thyroid gland, better characterized sonographically on a nonemergent basis. There is no hilar or mediastinal adenopathy. No axillary adenopathy. There are no pericardial or pleural effusions. There are no suspicious nodules within either lung. No focal infiltrates. No acute osseous abnormality. There is circumferential wall thickening of the mid and distal esophagus which could be post operative with esophagitis not excluded. Correlate with symptoms. IMPRESSION: 1. Possible circumferential wall thickening in the distal esophagus. Correlate for esophagitis. 2. Nodular densities throughout the thyroid gland. Sonographic characterization is recommended non-emergently. CT ABDOMEN/PELVIS: Focal hypodensity adjacent to the falciform ligament in the right lobe of the liver is most likely focal fatty change. This is stable from previous. There is evidence of previous cholecystectomy. The spleen is unremarkable. Again noted are post operative changes in the region of the stomach near the GE junction with a suture line along the stomach and the adjacent splenic flexure with both appearing tethered to the GE junction with mild herniation through the hiatus suspected. No free fluid. No free air. A separate suture line is seen in the left mid anterior abdomen. An adjacent minimally prominent fluid-filled loop of bowel is noted, likely due to timing of peristalsis. No obstructive process is seen. The visualized aspects of the pancreas are unremarkable although much of the pancreas is not visualized, perhaps at least partially surgically absent. Correlate with history. There are post cholecystectomy changes. The spleen is normal. The kidneys demonstrate bilateral extrarenal pelves, stable from the previous, with no distal obstructive process seen. There is no ascites. No free air. There is no acute osseous abnormality. IMPRESSION: Stable-appearing post operative changes as above with no interval acute process since the recent CT. Dictated by: Dictated on workstation # [id number]
== END 2022-08-11 06:00 | disposition short-term general hospital (02) ==
LOC: EDUNIT# 22:14 → ER 22:15
DX: E11.10 Type 2 diabetes mellitus with ketoacidosis without coma (principal); K20.90 Esophagitis, unspecified without bleeding; E66.01 Morbid (severe) obesity due to excess calories; Z79.4 Long term (current) use of insulin; Z90.3 Acquired absence of stomach [part of]; Z98.890 Other specified postprocedural states; Z98.84 Bariatric surgery status; Z68.32 Body mass index [BMI] 32.0-32.9, adult
CPT/HCPCS: 36415; 71260; 74177; 80048; 80053; 80306; 81000; 82010; 82150; 82550; 82553; 82805; 82947; 83605; 83690; 83735; 83880; 84484; 85007; 85025; 85027; 85610; 85730; 93041

== ENCOUNTER 2022-08-29 22:51 | Emergency (ER) | payer OTHER ==
[~2022-08-29] VITALS: Ht 160 cm; Wt 73.5 kg
[2022-08-29 23:12] VITALS: BP 131/88
--- NOTE | 2022-08-29 23:45 | ED Lower Extremity ---
General Chief Complaint: Lower Extremity Stated Complaint: SWOLLEN ANKLES Nursing Triage Note: C/O INTERMITTANT BILATERAL ANKLE SWELLING X4 DAYS. REPORTS LEFT ANKLE PAIN. DENIES INJURY. Source: patient Exam Limitations: no limitations History of Present Illness Date Seen by Provider: Aug 29, 2022 Time Seen by Provider: 23:29 Initial Comments Patient is a 52-year-old female who presents to the emergency room with concern for ankle and foot swelling. Patient states she noticed this 4 days ago on Saturday. She states that the swelling seemed to improve a little on Saturday and then as she was at work and moving around her feet swelled more. She states this evening she started having some discomfort in her left foot. She denies fevers or chills. No increased warmth or redness noted to the feet. She is an insulin-dependent diabetic. No reported trauma or injury. She denies excessive salt intake and states she does not even have any on her house. She cannot drink soda due to her recent gastric surgery. She states she is urinating normally. No nausea or vomiting. She took Tylenol for the discomfort at 1130 this morning, nothing since. 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 (Allergy, Unknown, 12/27/21) Patient Home Medication List Home Medication List Reviewed: Yes Albuterol Sulfate (Ventolin Hfa) 1 Puff Puff, 2 PUFF IH Q6H PRN for SHORTNESS OF BREATH, (Reported) Entered as Reported by: LAUREN PAYNE on 12/02/16 2231 Baclofen (Baclofen) 10 Mg Tablet, 10 MG PO TID Prescribed by: Luana Larkin on 07/21/22 1536 Cetirizine HCl (Zyrtec) 10 Mg Capsule, 10 MG PO DAILY, (Reported) Entered as Reported by: FLAVIA DUNHAM on 04/04/16 2340 Dicyclomine HCl (Dicyclomine HCl) 20 Mg Tablet, 20 MG PO Q6H Prescribed by: NOEL CHIN on 08/10/22 0112 Doxycycline Hyclate (Doxycycline Hyclate) 100 Mg Tablet, 100 MG PO BID Prescribed by: LUPE BUENO on 01/22/22 1652 Fluconazole (Diflucan) 150 Mg Tablet, 150 MG PO UD Prescribed by: YADIRA FERMIN on 12/09/21 0249 Guaifenesin (Mucinex) 1,200 Mg Tab.er.12h, 1,200 MG PO DAILY, (Reported) Entered as Reported by: ANDREA BARBER on 06/12/18 0953 Hydrocodone/Acetaminophen (Hydrocodone-Acetamin 5-325 mg) 5 Mg-325 Mg Tablet, 1 TAB PO Q4H PRN for PAIN-MODERATE (5-7) Prescribed by: ASIF LEON on 07/22/212258 Hydrocodone/Acetaminophen (Hydrocodone-Acetamin 5-325 mg) 5 Mg-325 Mg Tablet, 1 TAB PO Q6H PRN for PAIN-MODERATE (5-7) Prescribed by: LUPE BUENO on 01/22/22 1700 Hyoscyamine Sulfate (Levsin-Sl) 0.125 Mg Tab.subl, 0.125 MG SL Q4H PRN for CRAMPS Prescribed by: YADIRA FERMIN on 12/09/21 024 Insulin Glargine,Hum.rec.anlog (Lantus Solostar) 100 Unit/1 Ml Insuln.pen, 50 UNITS SC HS, (Reported) Entered as Reported by: FLAVIA DUNHAM on 07/13/152140 Lidocaine (Salonpas) 4 % Adh..patch, 1 EACH TP DAILY Prescribed by: Luana Larkin on 07/21/22 1536 Metformin HCl (Metformin HCl) 1,000 Mg Tablet, 1,000 MG PO BID, (Reported) Entered as Reported by: FLAVIA DUNHAM on 07/13/152140 Naproxen (Naproxen) 500 Mg Tablet., 500 MG PO BID Prescribed by: ASIF LEON on 07/22/212258 Naproxen (Naproxen) 500 Mg Tablet.dr, 500 MG PO BID Prescribed by: NOEL CHIN on 11/21/21 489 Omeprazole (Omeprazole) 40 Mg Capsule., (Reported) Entered as Reported by: LAUREN PAYNE on 11/21/21 2336 Ondansetron (Ondansetron Odt) 4 Mg Tab.rapdis, 4 MG SL Q4H PRN for NAUSEA/VOMITING Prescribed by: YADIRA FERMIN on 12/09/21 0249 Ondansetron HCl (Zofran) 4 Mg Tab, 4 MG PO Q4H Prescribed by: AIDEE SOUZA on 05/26/18 220 Ondansetron HCl (Ondansetron HCl) 8 Mg Tablet, 8 MG PO Q6H PRN for NAUSEA/VOMITING Prescribed by: NOEL CHIN on 08/10/22 011 Pantoprazole Sodium (Protonix) 40 Mg Tablet.dr, 40 MG PO DAILY Prescribed by: NOEL CHIN on 08/10/22 011 Polyethylene Glycol 3350 (Miralax) 17 Gm Powd.pack, 17 GM PO DAILY Prescribed by: NOEL CHIN on 04/06/19 005 Promethazine HCl (Promethazine Tablet) 25 Mg Tablet, 25 MG PO Q6H PRN for NAUSEA/VOMITING Prescribed by: AGUILAR ARRINGTON on 06/02/222209 Sucralfate (Carafate) 1 Gm Tablet, 1 GM PO QID Prescribed by: NOEL CHIN on 12/27/191955 Review of Systems Constitutional: see HPI EENTM: no symptoms reported Respiratory: no symptoms reported Cardiovascular: no symptoms reported Gastrointestinal: no symptoms reported Genitourinary: no symptoms reported Musculoskeletal: other (foot and ankle swelling) Skin: no symptoms reported All Other Systems Reviewed Negative Unless Noted: Yes Past Gaiaess-Ojhuwn-Vwjsja Hx Patient Social History Tobacco Use?: No Substance use?: No Alcohol Use?: No Pt feels they are or have been: No Immunizations Up To Date Tetanus Booster (TDap): Unknown PED Vaccines UTD: No First/Initial COVID19 Vaccinat: 03/19/20 Second COVID19 Vaccination Franco: 04/08/20 Third COVID19 Vaccination Date: 01/05/21 Seasonal Allergies Seasonal Allergies: Yes Past Medical History Surgery/Hospitalization HX: PMH;DM, GERD, HTN SURGERY;HITAL HERNIA SURGERY, GALLBLADDER, BILATERAL KNEES, AND EYESURGERY.LEFT BREAST BIOPSY 11/15/21-BENIGN HIATAL HERNIA, GASTRIC SLEEVE AND INTESTIONAL RESECTION FOR GASTROPARESIS DONE AT 07/11/22 Surgeries: Yes (HIATAL HERNIA REPAIR 2017; [facility] 06/2018; BILAT KNEE SCOPES; EYE SURGERY ) Abdominal, Breast, Eye Surgery, Gallbladder, Orthopedic Respiratory: Yes Asthma Currently Using CPAP: No Currently Using BIPAP: No Cardiac: Yes High Cholesterol Neurological: No Reproductive Disorders: Yes Female Reproductive Disorders: Menstrual Problems Sexually Transmitted Disease: No HIV/AIDS: No Genitourinary: Yes Bladder Infection, UTI-Chronic Gastrointestinal: Yes (ESOPHAGEAL NARROWING;HIATAL HERNIA REPAIR 2016;[facility] 06/2018;GASTROPARESIS) Gastroesophageal Reflux, Hiatal Hernia, Ulcer, Gall Bladder Disease Musculoskeletal: Yes (BILATERAL KNEE SURGERY) Arthritis Endocrine: Yes (MORBID OBESITY) Diabetes, Insulin dep HEENT: Yes (GLASSES; EYE SURGERY ;EXTENSIVE DENTAL DECAY) Loss of Vision: Bilateral Hearing Impairment: Denies Cancer: No Psychosocial: No Integumentary: No Blood Disorders: No Adverse Reaction/Blood Tranf: No (N/A) Family Medical History Arthritis 19 FATHER 19 MOTHER G8 SISTER Asthma 19 FATHER 19 MOTHER G8 SISTER Cataracts 19 MOTHER Diabetes mellitus 19 FATHER 19 MOTHER G8 SISTER FH: leukemia 19 FATHER Myocardial infarction 19 MOTHER Parkinson's disease 19 FATHER Thyroid disease 19 MOTHER Asthma, CAD Over 55 Years Old, Diabetes SOCIAL HISTORY: -DENIES SMOKING OR VAPING -DENIES ALCOHOL USE NOW OR IN THE PAST -DENIES DRUG USE NOW OR IN THE PAST PAST SURTGICAL HISTORY: -EYE SURGERY INFANT -BILATERAL KNEE SCOPES -HIATAL HERNIA REPAIR 07/2016 -LAP [facility] 06/2018 -LAST COLONOSCOPY 01/08/19 -SURGERY AT 07/11/22: GASTRIC AND INTESTINAL RESECTION FOR GASTROPARESIS AND HIATAL HERNIA REPAIR--PER [facility]: HIATAL HERNIA REPAIR FOR PARAESOPHAGEAL HERNIA, AND PARTIAL GASTRECTOMY WITH GASTRO-JEJUNOSTOMY ( MODIFIED LIZA-EN-Y PROCEDURE) Physical Exam Vital Signs Vital Signs - First Documented 08/29/22 23:12 Temp 36.9 Pulse 88 Resp 16 B/P (MAP) 131/88 (102) Pulse Ox 100 O2 Delivery Room Air Capillary Refill : Less Than 3 Seconds Height, Weight, BMI Height: 5'3.00" Weight: 178lbs. 0.0oz. 80.139921fm; 28.00 BMI Method:Stated General Appearance: WD/WN, no apparent distress, obese HEENT: PERRL/EOMI Cardiovascular: regular rate, rhythm, other (2+ DP and PT pulses bilaterally) Respiratory: lungs clear, normal breath sounds, no respiratory distress, no accessory muscle use Gastrointestinal: non tender, soft Hips: bilateral hip normal range of motion Legs: bilateral leg non-tender, bilateral leg normal inspection, bilateral leg normal range of motion, bilateral leg no evidence of injury Knees: bilateral knee non-tender, bilateral knee normal inspection, bilateral knee normal range of motion, bilateral knee no evidence of injury Ankles: bilateral ankle swelling (mild edema - non pitting) Feet: bilateral foot swelling (mild edema; no erythema; no increased warmth. Non tender to palpation) Neurologic/Psychiatric: alert, normal mood/affect, oriented x 3 Skin: normal color, warm/dry Progress/Results/Core Measures Results/Orders My Orders Orders - LUPE BUENO MD Accucheck Stat ONCE (08/29/22 23:37) Vital Signs/I&O 08/29/22 23:12 Temp 36.9 Pulse 88 Resp 16 B/P (MAP) 131/88 (102) Pulse Ox 100 O2 Delivery Room Air Blood Pressure Mean: 102 Departure Impression Primary Impression: Pedal edema Disposition: 01 HOME, SELF-CARE Condition: Stable Departure-Patient Inst. Decision time for Depature: 23:42 Referrals: EMMA VEGA APRN (PCP/Family) Primary Care Physician Patient Instructions: Dependent Edema (DC) Add. Discharge Instructions: Continue your daily medications as prescribed. Elevate your feet above the level of your heart when you lay down tonight - this will bring your swelling down. Watch your diet (some processed foods contain sodium/salt). Follow up with your primary care doctor tomorrow. Copy Copies To 1: RIAZ REAL KATHRYN M MD Aug 29, 2022 23:45
== END 2022-08-29 23:46 | disposition home or self-care (01) ==
LOC: EDUNIT# 22:51 → ER 22:52
DX: R60.0 Localized edema (principal); E66.01 Morbid (severe) obesity due to excess calories; Z68.28 Body mass index [BMI] 28.0-28.9, adult
CPT/HCPCS: 82947

== ENCOUNTER 2022-11-05 15:24 | Emergency (ER) | payer OTHER ==
[~2022-11-05] VITALS: Ht 160 cm; Wt 77.1 kg
[2022-11-05 15:43] LABS: BASOPHILS % (AUTO) 1 % (0-10); EOSINOPHILS # (AUTO) 0.2 10^3/uL (0.0-0.3); EOSINOPHILS % (AUTO) 4 % (0-10); HEMATOCRIT 41 % (35-52); HEMOGLOBIN 13.2 g/dL (11.5-16.0); LYMPHOCYTES # (AUTO) 1.5 X 10^3 (1.0-4.0); LYMPHOCYTES % (AUTO) 25 % (12-44); MEAN CORPUSCULAR HEMOGLOBIN 31 pg (25-34); MEAN CORPUSCULAR HGB CONC 32 g/dL (32-36); MEAN CORPUSCULAR VOLUME 94 fL (80-99); MEAN PLATELET VOLUME 10.2 fL (9.0-12.2); MONOCYTES # (AUTO) 0.3 X 10^3 (0.0-1.0); MONOCYTES % (AUTO) 6 % (0-12); NEUTROPHILS # (AUTO) 3.9 X 10^3 (1.8-7.8); NEUTROPHILS % (AUTO) 65 % (42-75); PLATELET COUNT 324 10^3/uL (130-400)
--- NOTE | 2022-11-05 15:47 | ED Abdominal Pain ---
General Chief Complaint: Abdominal/GI Problems Stated Complaint: ABD PAIN Nursing Triage Note: PT AMB TO [facility] 6 WITH CC OF LEFT LOWER ABD PAIN AND LEFT LOWER BACK PAIN THAT STARTED LAST NIGHT. PT STATES THAT SHE HAS HAD DIARRHEA 8X SINCE MIDNIGHT LAST NIGHT. Source of Information: Patient Exam Limitations: No Limitations History of Present Illness Date Seen by Provider: Nov 05, 2022 Time Seen by Provider: 15:29 Initial Comments 52-year-old female presents to the ER with complaints of left lower quadrant abdominal pain and left lower back pain starting yesterday. She reports she has had 8 episodes of diarrhea. Reports nausea, no vomiting due to hiatal hernia surgery. She denies fevers and dysuria. Recently finished an antibiotic for UTI on 11/03/2022. Last menstrual cycle was June of this year. On of this year, she had a second hiatal hernia surgery and gastric sleeve and intestinal resection. She has also had her gallbladder removed. 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: Hand test preparer (Allergy, Unknown, 12/27/21) Patient Home Medication List Home Medication List Reviewed: Yes Albuterol Sulfate (Ventolin Hfa) 1 Puff Puff, 2 PUFF IH Q6H PRN for SHORTNESS OF BREATH, (Reported) Entered as Reported by: LAUREN PAYNE on 12/02/16 2231 Baclofen (Baclofen) 10 Mg Tablet, 10 MG PO TID Prescribed by: Luana Larkin on 07/21/22 1536 Cetirizine HCl (Zyrtec) 10 Mg Capsule, 10 MG PO DAILY, (Reported) Entered as Reported by: FLAVIA DUNHAM on 04/04/16 2340 Dicyclomine HCl (Dicyclomine HCl) 20 Mg Tablet, 20 MG PO Q6H Prescribed by: NOEL CHIN on 08/10/22 0112 Dicyclomine HCl (Dicyclomine HCl) 20 Mg Tablet, 20 MG PO ACHS Prescribed by: Luana Larkin on 11/05/22 1831 Doxycycline Hyclate (Doxycycline Hyclate) 100 Mg Tablet, 100 MG PO BID Prescribed by: LUPE BUENO on 01/22/22 1652 Fluconazole (Diflucan) 150 Mg Tablet, 150 MG PO UD Prescribed by: YADIRA FERMIN on 12/09/21 0249 Guaifenesin (Mucinex) 1,200 Mg Tab.er.12h, 1,200 MG PO DAILY, (Reported) Entered as Reported by: ANDREA BARBER on 06/12/18 0953 Hydrocodone/Acetaminophen (Hydrocodone-Acetamin 5-325 mg) 5 Mg-325 Mg Tablet, 1 TAB PO Q4H PRN for PAIN-MODERATE (5-7) Prescribed by: ASIF LEON on 07/22/212258 Hydrocodone/Acetaminophen (Hydrocodone-Acetamin 5-325 mg) 5 Mg-325 Mg Tablet, 1 TAB PO Q6H PRN for PAIN-MODERATE (5-7) Prescribed by: LUPE BUENO on 01/22/22 1700 Hyoscyamine Sulfate (Levsin-Sl) 0.125 Mg Tab.subl, 0.125 MG SL Q4H PRN for CRAMPS Prescribed by: YADIRA FERMIN on 12/09/21 024 Insulin Glargine,Hum.rec.anlog (Lantus Solostar) 100 Unit/1 Ml Insuln.pen, 50 UNITS SC HS, (Reported) Entered as Reported by: FLAVIA DUNHAM on 07/13/152140 Lidocaine (Salonpas) 4 % Adh..patch, 1 EACH TP DAILY Prescribed by: Luana Larkin on 07/21/22 1536 Metformin HCl (Metformin HCl) 1,000 Mg Tablet, 1,000 MG PO BID, (Reported) Entered as Reported by: FLAVIA DUNHAM on 07/13/15 214 Metronidazole (Metronidazole) 500 Mg Tablet, 500 MG PO TID Prescribed by: Luana Larkin on 11/05/22 1831 Naproxen (Naproxen) 500 Mg Tablet.dr, 500 MG PO BID Prescribed by: ASIF LEON on 07/22/21 225 Naproxen (Naproxen) 500 Mg Tablet.dr, 500 MG PO BID Prescribed by: NOEL CHIN on 11/21/21 2359 Omeprazole (Omeprazole) 40 Mg Capsule., (Reported) Entered as Reported by: LAUREN PAYNE on 11/21/21 2336 Ondansetron (Ondansetron Odt) 4 Mg Tab.rapdis, 4 MG SL Q4H PRN for NAUSEA/VOMITING Prescribed by: YADIRA FERMIN on 12/09/21 0249 Ondansetron HCl (Zofran) 4 Mg Tab, 4 MG PO Q4H Prescribed by: AIDEE SOUZA on 05/26/18 220 Ondansetron HCl (Ondansetron HCl) 8 Mg Tablet, 8 MG PO Q6H PRN for NAUSEA/VOMITING Prescribed by: NOEL CHIN on 08/10/22 011 Pantoprazole Sodium (Protonix) 40 Mg Tablet.dr, 40 MG PO DAILY Prescribed by: NOEL CHIN on 08/10/22 011 Polyethylene Glycol 3350 (Miralax) 17 Gm Powd.pack, 17 GM PO DAILY Prescribed by: NOEL CHIN on 04/06/19 0056 Promethazine HCl (Promethazine Tablet) 25 Mg Tablet, 25 MG PO Q6H PRN for NAUSEA/VOMITING Prescribed by: AGUILAR ARRINGTON on 06/02/222209 Sucralfate (Carafate) 1 Gm Tablet, 1 GM PO QID Prescribed by: NOEL CHIN on 12/27/191955 Review of Systems Review of Systems Constitutional: see HPI Past Qsnjfed-Wrdhfj-Tpwdin Hx Patient Social History Tobacco Use?: No Substance use?: No Alcohol Use?: No Immunizations Up To Date Tetanus Booster (TDap): Unknown PED Vaccines UTD: No First/Initial COVID19 Vaccinat: 03/19/20 Second COVID19 Vaccination Franco: 04/08/20 Third COVID19 Vaccination Date: 01/05/21 Seasonal Allergies Seasonal Allergies: Yes Past Medical History Surgery/Hospitalization HX: PMH;DM, GERD, HTN SURGERY;HITAL HERNIA SURGERY, GALLBLADDER, BILATERALKNEES,AND EYESURGERY.LEFT BREAST BIOPSY 11/15/21-BENIGNHIATAL HERNIA, GASTRIC SLEEVE AND INTESTIONAL RESECTION FOR GASTROPARESISDONE AT [facility] 07/11/22 Surgeries: Yes (HIATAL HERNIA REPAIR 2016; [facility] 06/2018; BILAT KNEE SCOPES; EYE SURGERY ) Abdominal, Breast, Eye Surgery, Gallbladder, Orthopedic Respiratory: Yes Asthma Currently Using CPAP: No Currently Using BIPAP: No Cardiac: Yes High Cholesterol Neurological: No Reproductive Disorders: Yes Female Reproductive Disorders: Menstrual Problems Sexually Transmitted Disease: No HIV/AIDS: No Genitourinary: Yes Bladder Infection, UTI-Chronic Gastrointestinal: Yes (ESOPHAGEAL NARROWING;HIATAL HERNIA REPAIR 2016;[facility] 2018;GASTROPARESIS) Gastroesophageal Reflux, Hiatal Hernia, Ulcer, Gall Bladder Disease Musculoskeletal: Yes (BILATERAL KNEE SURGERY) Arthritis Endocrine: Yes (MORBID OBESITY) Diabetes, Insulin dep HEENT: Yes (GLASSES; EYE SURGERY INFANT;EXTENSIVE DENTAL DECAY) Loss of Vision: Bilateral Hearing Impairment: Denies Cancer: No Psychosocial: No Integumentary: No Blood Disorders: No Adverse Reaction/Blood Tranf: No (N/A) Family Medical History Arthritis 19 FATHER 19 MOTHER G8 SISTER Asthma 19 FATHER 19 MOTHER G8 SISTER Cataracts 19 MOTHER Diabetes mellitus 19 FATHER 19 MOTHER G8 SISTER FH: leukemia 19 FATHER Myocardial infarction 19 MOTHER Parkinson's disease 19 FATHER Thyroid disease 19 MOTHER Asthma, CAD Over 55 Years Old, Diabetes SOCIAL HISTORY: -DENIES SMOKING OR VAPING -DENIES ALCOHOL USE NOW OR IN THE PAST -DENIES DRUG USE NOW OR IN THE PAST PAST SURTGICAL HISTORY: -EYE SURGERY -BILATERAL KNEE SCOPES -HIATAL HERNIA REPAIR 07/2016 -LAP [facility] 06/2018 -LAST COLONOSCOPY 01/08/19 -SURGERY AT [facility] 07/11/22: GASTRIC AND INTESTINAL RESECTION FOR GASTROPARESIS AND HIATAL HERNIA REPAIR--PER [facility]: HIATAL HERNIA REPAIR FOR PARAESOPHAGEAL HERNIA, AND PARTIAL GASTRECTOMY WITH GASTRO-JEJUNOSTOMY ( MODIFIED LIZA-EN-Y PROCEDURE) Physical Exam Vital Signs Vital Signs - First Documented 11/05/22 15:34 Pulse 83 B/P (MAP) 163/114 (130) Pulse Ox 98 O2 Delivery Room Air Capillary Refill : Height/Weight/BMI Height: 5'3.00" Weight: 178lbs. 0.0oz. [id number]; 30.00 BMI Method:Stated General Appearance: WD/WN, no apparent distress Neck: supple, normal inspection Respiratory: lungs clear, normal breath sounds, no respiratory distress, no accessory muscle use Cardiovascular: regular rate, rhythm Gastrointestinal: normal bowel sounds, soft; No guarding; tenderness (Left lower quadrant) Extremities: normal range of motion, normal inspection Back: CVA tenderness (R), CVA tenderness (L) Neurologic/Psychiatric: alert, normal mood/affect Skin: normal color, warm/dry Progress/Results/Core Measures Results/Orders Lab Results Laboratory Tests Test 11/05/22 15:37 11/05/22 15:40 11/05/22 15:45 Range/Units White Blood Count 6.0 4.3-11.0 10^3/uL Red Blood Count 4.32 3.80-5.11 10^6/uL Hemoglobin 13.2 11.5-16.0 g/dL Hematocrit 41 35-52 % Mean Corpuscular Volume 94 80-99 fL Mean Corpuscular Hemoglobin 31 25-34 pg Mean Corpuscular Hemoglobin Concent 32 32-36 g/dL Red Cell Distribution Width 13.1 10.0-14.5 % Platelet Count 324 130-400 10^3/uL Mean Platelet Volume 10.2 9.0-12.2 fL Immature Granulocyte % (Auto) 0 % Neutrophils (%) (Auto) 65 42-75 % Lymphocytes (%) (Auto) 25 12-44 % Monocytes (%) (Auto) 6 0-12 % Eosinophils (%) (Auto) 4 0-10 % Basophils (%) (Auto) 1 0-10 % Neutrophils # (Auto) 3.9 1.8-7.8 X 10^3 Lymphocytes # (Auto) 1.5 1.0-4.0 X 10^3 Monocytes # (Auto) 0.3 0.0-1.0 X 10^3 Eosinophils # (Auto) 0.2 0.0-0.3 10^3/uL Basophils # (Auto) 0.0 0.0-0.1 10^3/uL Immature Granulocyte # (Auto) 0.0 0.0-0.1 10^3/uL Sodium Level 140 135-145 MMOL/L Potassium Level 3.3 L 3.6-5.0 MMOL/L Chloride Level 110 H 98-107 MMOL/L Carbon Dioxide Level 21 21-32 MMOL/L Anion Gap 9 5-14 MMOL/L Blood Urea Nitrogen 7 7-18 MG/DL Creatinine 0.74 0.60-1.30 MG/DL Estimat Glomerular Filtration Rate 98 BUN/Creatinine Ratio 9 Glucose Level 284 H 70-105 MG/DL Calcium Level 9.2 8.5-10.1 MG/DL Corrected Calcium 9.1 8.5-10.1 MG/DL Total Bilirubin 0.4 0.1-1.0 MG/DL Aspartate Amino Transf (AST/SGOT) 23 5-34 U/L Alanine Aminotransferase (ALT/SGPT) 25 0-55 U/L Alkaline Phosphatase 103 40-136 U/L Total Protein 7.3 6.4-8.2 GM/DL Albumin 4.1 3.2-4.5 GM/DL Lipase 33 8-78 U/L Urine Test NEGATIVE NEGATIVE Urine Color YELLOW Urine Clarity CLEAR Urine pH 6.0 5-9 Urine Specific [place] 1.025 H 1.016-1.022 Urine Protein NEGATIVE NEGATIVE Urine Glucose (UA) 3+ H NEGATIVE Urine Ketones NEGATIVE NEGATIVE Urine Nitrite NEGATIVE NEGATIVE Urine Bilirubin NEGATIVE NEGATIVE Urine Urobilinogen 0.2 < = 1.0 MG/DL Urine Leukocyte Esterase NEGATIVE NEGATIVE Urine RBC (Auto) NEGATIVE NEGATIVE Urine RBC RARE /HPF Urine WBC 2-5 /HPF Urine Squamous Epithelial Cells 10-25 H /HPF Urine Crystals NONE /LPF Urine Bacteria TRACE /HPF Urine Casts NONE /LPF Urine Mucus NEGATIVE /LPF Urine Yeast FEW H /HPF Urine Culture Indicated YES My Orders Orders - LUANA CONRAD APRN Comprehensive Metabolic Panel (11/05/22 15:33) Lipase (11/05/22 15:33) Ed Iv/Invasive Line Start (11/05/22 15:33) Cbc With Automated Diff (11/05/22 15:33) Ua Culture If Indicated (11/05/22 15:33) Urine Bedside (11/05/22 15:41) Hcg,Qualitative Urine (11/05/22 15:48) Urine Culture (11/05/22 15:45) Ct Abdomen/Pelvis W (11/05/22 16:02) Iohexol Injection (Omnipaque 350 Mg/Ml 1 (11/05/22 16:15) Ns (Ivpb) 100 Ml (Sodium Chloride 0.9% 1 (11/05/22 16:15) Fluconazole Tablet (Ed Only) (Fluconazol (11/05/22 17:15) Metronidazole Tablet (Metronidazole Tabl (11/05/22 17:15) Ondansetron Injection (Ondansetron Inj (11/05/22 17:15) Fentanyl Injection (Fentanyl Injection (11/05/22 17:15) Ns Iv 500 Ml (Ns Iv 500 Ml) (11/05/22 17:15) Medications Given in ED Current Medications Medications Dose Ordered Sig/Hunter Route Start Time Stop Time Status Last Admin Dose Admin Fentanyl Citrate 50 mcg ONCE ONCE IVP 11/05/22 17:15 11/05/22 17:16 DC 11/05/22 17:24 50 MCG Fluconazole 150 mg ONCE ONCE PO 11/05/22 17:15 11/05/22 17:16 DC 11/05/22 17:24 150 MG Iohexol 100 ml ONCE ONCE IV 11/05/22 16:15 11/05/22 16:16 DC 11/05/22 16:40 80 ML Metronidazole 500 mg ONCE ONCE PO 11/05/22 17:15 11/05/22 17:16 DC 11/05/22 17:24 500 MG Ondansetron HCl 4 mg ONCE ONCE IVP 11/05/22 17:15 11/05/22 17:16 DC 11/05/22 17:24 4 MG Sodium Chloride 100 ml ONCE ONCE IV 11/05/22 16:15 11/05/22 16:16 DC 11/05/22 16:40 80 ML Sodium Chloride 500 ml @ 0 mls/hr Q0M ONCE IV 11/05/22 17:15 11/05/22 17:16 DC 11/05/22 17:25 0 MLS/HR Vital Signs/I&O 11/05/22 11/05/22 15:34 18:35 Pulse 83 62 B/P (MAP) 163/114 (130) 161/97 Pulse Ox 98 99 O2 Delivery Room Air Room Air Blood Pressure Mean: 130 Progress Progress Note : Progress Note Patient seen and evaluated, resting comfortably in bed, no acute distress. Based on exam and symptoms, differential diagnosis includes but is not limited to nephrolithiasis, pyelonephritis, diverticulitis, gastroenteritis. Work-up initiated including CBC, CMP, lipase, UA, urine . 1828 Labs and imaging reviewed. CBC grossly normal. CMP shows slightly decreased potassium 3.3, slightly elevated chloride 110. Glucose elevated 284. Lipase normal. Urinalysis shows 2-5 WBCs, 10-25 squamous epithelial cells, trace bacteria, few yeast, specimen is likely contaminated. CT abdomen pelvis shows possible mild enteritis and possible peritonitis without significant fluid or abscess identified. Due to normal white blood cell count, patient appearing well and nontoxic, I think this is likely gastroenteritis rather than peritonitis. I will go ahead and treat patient with antibiotic in case this is the development of peritonitis. Results and plan of care discussed with patient. Will discharge with Bentyl and Flagyl. Patient has Zofran at home. Discharge instructions and strict return precautions provided. Diagnostic Imaging Diagonstic Imaging: CT Plain Films/CT/US/NM/MRI: abdomen, pelvis Comments [facility] [place], [place] NAME: LAYLA NETTLES [facility] REC#: [id number] PT STATUS: REG ER : 1970 PHYSICIAN: LUANA CONRAD APRN ADMIT DATE: 11/05/22/ER Signed Date of Exam:11/05/22 CT ABDOMEN/PELVIS W PROCEDURE: CT abdomen and pelvis with contrast. TECHNIQUE: Multiple contiguous axial images were obtained through the abdomen and pelvis after administration of intravenous contrast. Auto Exposure Controls were utilized during the CT exam to meet ALARA standards for radiation dose reduction. All CT scans use one or more of the following dose optimizing techniques: Automated exposure control, MA and/or KvP adjustment based on patient size and exam type or iterative reconstruction. INDICATION: Left lower quadrant abdominal pain. COMPARISON: 09/07/2022. FINDINGS: There is no focal hepatic or splenic abnormality. There is prominence of biliary tree likely related to reservoir effect post cholecystectomy. Surgical changes are seen in left upper quadrant, which appear to be related to gastric bypass. There is mild mural thickening of proximal small bowel loops and questionable mild peritoneal thickening, most pronounced in the lower abdomen. No organized fluid collection is seen, and there is no evidence of significant peritoneal fluid. Moderate amount of stool is seen throughout the colon. IMPRESSION: Possible mild enteritis and possible peritonitis without significant fluid or abscess identified. Dictated by: Dictated on workstation # [id number] Dict: 11/05/22 1641 Trans: 11/05/22 1710 [id number] Interpreted by: TIFFANY SUE MD Electronically signed by: TIFFANY SUE MD 11/05/22 1710 Departure Impression Primary Impression: Abdominal pain Additional Impression: Gastroenteritis Disposition: 01 HOME, SELF-CARE Condition: Stable Departure-Patient Inst. Decision time for Depature: 18:28 Referrals: EMMA VEGA APRN (PCP/Family) Primary Care Physician Patient Instructions: Viral Gastroenteritis, Adult (DC) Add. Discharge Instructions: Complete full course of antibiotic as directed. Take dicyclomine as needed for abdominal pain. Take your home Zofran as needed for nausea. Return if you are becoming worse not better, if the pain becomes severe, you have uncontrollable diarrhea, uncontrollable nausea, develop a fever, or any other new, concerning, or worsening symptoms. All discharge instructions reviewed with patient and/or family. Voiced understanding. Scripts Metronidazole (Metronidazole) 500 Mg Tablet 500 MG PO TID for 7 Days, #21 TAB 0 Refills Prov: LUANA CONRAD APRN 11/05/22 Dicyclomine HCl (Dicyclomine HCl) 20 Mg Tablet 20 MG PO ACHS, #28 TAB 0 Refills Prov: LUANA CONRAD APRN 11/05/22 LUANA CONRAD APRN Nov 05, 2022 15:47
[2022-11-05 16:02] LABS: BACTERIA,URINE TRACE /HPF; BILIRUBIN,URINE NEGATIVE (NEGATIVE); CLARITY,URINE CLEAR; COLOR,URINE YELLOW; GLUCOSE, URINE (UA) 3+ (NEGATIVE); KETONES,URINE NEGATIVE (NEGATIVE); LEUKOCYTE ESTERASE ,URINE NEGATIVE (NEGATIVE); NITRITE,URINE NEGATIVE (NEGATIVE); PROTEIN,URINE NEGATIVE (NEGATIVE); RBC,URINE RARE /HPF; YEAST,URINE FEW /HPF
[2022-11-05 16:03] LABS: ALBUMIN 4.1 GM/DL (3.2-4.5); POTASSIUM 3.3 MMOL/L (3.6-5.0)
[2022-11-05 16:04] LABS: CALCIUM 9.2 MG/DL (8.5-10.1)
[2022-11-05 16:05] LABS: TOTAL PROTEIN 7.3 GM/DL (6.4-8.2)
[2022-11-05 16:07] LABS: BILIRUBIN,TOTAL 0.4 MG/DL (0.1-1.0)
[2022-11-05 16:09] LABS: CREATININE SERUM 0.74 MG/DL (0.60-1.30)
[2022-11-05] MEDS ORDERED: IOHEXOL 350 MG/ML 100 ML (OMNIPAQUE 350) VIAL IV ONE (16:15)
[2022-11-05] MEDS ORDERED: NS 100 ML (IVPB) BAG IV ONE (16:15)
--- NOTE | 2022-11-05 16:47 | Diagnostic Imaging Report ---
PROCEDURE: CT abdomen and pelvis with contrast. TECHNIQUE: Multiple contiguous axial images were obtained through the abdomen and pelvis after administration of intravenous contrast. Auto Exposure Controls were utilized during the CT exam to meet ALARA standards for radiation dose reduction. All CT scans use one or more of the following dose optimizing techniques: Automated exposure control, MA and/or KvP adjustment based on patient size and exam type or iterative reconstruction. INDICATION: Left lower quadrant abdominal pain. COMPARISON: 09/07/2022. FINDINGS: There is no focal hepatic or splenic abnormality. There is prominence of biliary tree likely related to reservoir effect post cholecystectomy. Surgical changes are seen in left upper quadrant, which appear to be related to gastric bypass. There is mild mural thickening of proximal small bowel loops and questionable mild peritoneal thickening, most pronounced in the lower abdomen. No organized fluid collection is seen, and there is no evidence of significant peritoneal fluid. Moderate amount of stool is seen throughout the colon. IMPRESSION: Possible mild enteritis and possible peritonitis without significant fluid or abscess identified. Dictated by: Dictated on workstation # [id number]
[2022-11-05] MEDS ORDERED: ONDANSETRON INJECTION 4 MG/2 ML (SDV) IVP ONE (17:15)
[2022-11-05] MEDS ORDERED: fentaNYL INJECTION 100 MCG/2 ML VIAL IVP ONE (17:15)
[2022-11-05] MEDS ORDERED: metroNIDAZOLE 500 MG TABLET PO ONE (17:15)
[2022-11-05] MEDS ORDERED: NS IV 500 ML 500 ML IV ONE (17:15)
[2022-11-05] MEDS ORDERED: METR-145 PO (18:31)
[2022-11-05] MEDS ORDERED: DICY20TA PO (18:31)
[2022-11-05 18:35] VITALS: BP 161/97
== END 2022-11-05 18:38 | disposition home or self-care (01) ==
LOC: ER 15:24 → EDUNIT# 15:24 → ER 18:38
DX: K52.9 Noninfective gastroenteritis and colitis, unspecified (principal); N39.0 Urinary tract infection, site not specified; E11.9 Type 2 diabetes mellitus without complications; E66.01 Morbid (severe) obesity due to excess calories; Z68.30 Body mass index [BMI] 30.0-30.9, adult; Z79.4 Long term (current) use of insulin; Z87.19 Personal history of other diseases of the digestive system; Z88.0 Allergy status to penicillin
CPT/HCPCS: 36415; 74177; 80053; 81000; 83690; 84703; 85025; 87088